=== PATIENT | female | born 1985 | race Caucasian/White ===

== ENCOUNTER 2022-10-13 14:31 | Outpatient (REF) | payer OTHER, SELFPAY | END 2022-10-14 14:06 | disposition home or self-care (01) | LOC: LAB 14:31 | PROVIDERS: PCP Nurse Practitioner; Visit Provider Nurse Practitioner | DX: S21.209A Unspecified open wound of unspecified back wall of thorax without penetration into thoracic cavity, initial encounter (principal) | CPT/HCPCS: 87070; 87150; 87186 ==

== ENCOUNTER 2022-11-20 08:49 | Outpatient (OUT) | payer OTHER, SELFPAY ==
[2022-11-20 09:29] LABS: Bilirubin Urine NEGATIVE (NEGATIVE); Blood Urine NEGATIVE (NEGATIVE); Clarity Urine CLEAR (CLEAR); Glucose Urine UA NEGATIVE (NEGATIVE); Ketones Urine NEGATIVE (NEGATIVE); Leukocyte Esterase Urine NEGATIVE (NEGATIVE); Nitrite Urine NEGATIVE (NEGATIVE); Protein Urine NEGATIVE (NEG/TRACE); Urobilinogen Urine 0.2 EU/dL (0.2-1.0)
[2022-11-20 09:37] LABS: Color Urine YELLOW (YELLOW); WBC Urine 0-2 #/HPF (NONE SEEN)
[2022-11-20 09:38] LABS: Bacteria Urine TRACE #/HPF (NONE SEEN); Cast Seen? NONE SEEN #/LPF (NONE SEEN); Crystals Seen? None Seen #/HPF (None Seen); Mucus Urine NONE SEEN (NONE SEEN); RBC Urine 0-2 #/HPF (0-2); Squamous Epithelial Cell Urine MODERATE #/LPF (NONE/RARE)
[2022-11-20 09:43] LABS: Estimated Average Glucose 103 mg/dL; Glycohemoglobin A1C 5.2 % (4.5-6.2)
[2022-11-20 09:56] LABS: Erythrocyte Sedimentation Rate 61 mm/hr (<=20)
[2022-11-20 10:45] LABS: Microalbumin Urine Random <1.3 mg/dL (<=30.0)
[2022-11-20 11:55] LABS: Free T4 1.08 ng/dL (0.76-1.46)
[2022-11-20 14:02] LABS: Alanine Aminotransferase 19 U/L (14-59); Albumin Globulin Ratio 0.9; Albumin Level 3.9 g/dL (3.4-5.0); Alkaline Phosphatase 123 U/L (46-116); Anion Gap 11.4; Aspartate Amino Transferase 8 U/L (15-37); BUN Creatinine Ratio 8.8; Bilirubin Total 0.4 mg/dL (0.2-1.0); C Reactive Protein 0.4 mg/dL (<=1.0); Carbon Dioxide 26.5 mmol/L (21.0-32.0); Chloride 104 mmol/L (98-107); Chol HDL Ratio 3.4; Cholesterol 202 mg/dL (<=200); Estimated GFR (African America >60 (>=60); Estimated GFR (Non-African Ame >60 (>=60); Globulin 4.3 g/dL; Glucose 91 mg/dL (74-106); HDL Cholesterol 59 mg/dL (40-60); Potassium 3.9 mmol/L (3.5-5.1); Sodium 138 mmol/L (136-145); Thyroid Stimulating Hormone 4.709 uIU/mL (0.358-3.740); Total Protein 8.2 g/dL (6.4-8.2); Triglycerides 69 mg/dL (<=150); VLDL CHOLESTEROL 13.8 mg/dL
[2022-11-21 04:09] LABS: Antistreptolysin O Ab 96.1 IU/mL (0.0-200.0); Rheumatoid Factor (RF) <10.0 IU/mL (<14.0)
[2022-11-21 12:09] LABS: Insulin 13.2 uIU/mL (2.6-24.9)
[2022-11-24 08:10] LABS: Antinuclear Antibodies, IFA Negative (.)
== END 2022-11-20 08:50 | disposition home or self-care (01) ==
LOC: LAB 08:50
PROVIDERS: PCP Nurse Practitioner; Visit Provider Nurse Practitioner
DX: I10 Essential (primary) hypertension (principal); E03.9 Hypothyroidism, unspecified; R73.03 Prediabetes; E16.1 Other hypoglycemia; M79.10 Myalgia, unspecified site
CPT/HCPCS: 36415; 80053; 80061; 81001; 81015; 82043; 83036; 83525; 84439; 84443; 84550; 85652; 86038; 86060; 86140; 86430

== ENCOUNTER 2022-12-05 07:08 | Outpatient (OUT) | payer OTHER, SELFPAY ==
[2022-12-05 08:41] LABS: Alanine Aminotransferase 18 U/L (14-59); Aspartate Amino Transferase 8 U/L (15-37); Chol HDL Ratio 2.4; Cholesterol 151 mg/dL (<=200); HDL Cholesterol 62 mg/dL (40-60); Thyroid Stimulating Hormone 2.772 uIU/mL (0.358-3.740); Triglycerides 64 mg/dL (<=150); VLDL CHOLESTEROL 12.8 mg/dL
== END 2022-12-05 07:09 | disposition home or self-care (01) ==
LOC: LAB 07:10
PROVIDERS: PCP Nurse Practitioner; Visit Provider Nurse Practitioner
DX: E03.9 Hypothyroidism, unspecified (principal); E11.9 Type 2 diabetes mellitus without complications
CPT/HCPCS: 36415; 80061; 84439; 84443; 84450; 84460

== ENCOUNTER 2022-12-09 08:55 | Outpatient (OUT) | payer OTHER, SELFPAY ==
[2022-12-09 09:30] LABS: Erythrocyte Sedimentation Rate 42 mm/hr (<=20)
== END 2022-12-09 08:56 | disposition home or self-care (01) ==
LOC: LAB 08:56
PROVIDERS: PCP Nurse Practitioner; Visit Provider Nurse Practitioner
DX: R70.0 Elevated erythrocyte sedimentation rate (principal)
CPT/HCPCS: 36415; 85652

== ENCOUNTER 2023-01-10 10:03 | Outpatient (OUT) | payer OTHER, SELFPAY ==
[2023-01-10 10:24] LABS: Erythrocyte Sedimentation Rate 59 mm/hr (<=20)
== END 2023-01-10 10:04 | disposition home or self-care (01) ==
LOC: LAB 01-16 10:04
PROVIDERS: PCP Nurse Practitioner; Visit Provider Nurse Practitioner
DX: R70.0 Elevated erythrocyte sedimentation rate (principal)
CPT/HCPCS: 36415; 85652

== ENCOUNTER 2023-01-27 08:43 | Outpatient (OUT) | payer OTHER, SELFPAY ==
[2023-01-27 09:32] LABS: Alanine Aminotransferase 17 U/L (14-59); Aspartate Amino Transferase 13 U/L (15-37); Chol HDL Ratio 2.7; Cholesterol 152 mg/dL (<=200); HDL Cholesterol 56 mg/dL (40-60); Thyroid Stimulating Hormone 2.145 uIU/mL (0.358-3.740); Triglycerides 60 mg/dL (<=150)
[2023-01-27 09:46] LABS: Free T4 1.16 ng/dL (0.76-1.46)
== END 2023-01-27 08:44 | disposition home or self-care (01) ==
LOC: LAB 08:44
PROVIDERS: PCP Nurse Practitioner; Visit Provider Nurse Practitioner
DX: E03.9 Hypothyroidism, unspecified (principal); E11.9 Type 2 diabetes mellitus without complications
CPT/HCPCS: 36415; 80061; 84439; 84443; 84450; 84460

== ENCOUNTER 2023-03-18 10:04 | Outpatient (REF) | payer OTHER, SELFPAY ==
[2023-03-18 10:36] LABS: SARS-CoV-2 Ag POSITIVE (NEGATIVE)
[2023-03-18 10:37] LABS: Influenza Virus A Antigen Negative; Influenza Virus B Antigen Negative; Internal Control Within Normal Limits
== END 2023-03-18 10:05 | disposition home or self-care (01) ==
LOC: LAB 10:04
PROVIDERS: PCP Nurse Practitioner; Visit Provider Nurse Practitioner
DX: Z20.822 Contact with and (suspected) exposure to COVID-19 (principal)
CPT/HCPCS: 87804; 87811

== ENCOUNTER 2023-03-31 13:15 | Emergency (ER) | payer OTHER, SELFPAY ==
[2023-03-31 13:19] VITALS: BP 151/91; PULSE 102; RESP 20; TEMP 37.1; O2SAT 97; BMI 46.8
--- NOTE | 2023-03-31 13:35 | ED.GENADUL1 ---
HPI - General Adult General Chief complaint: Skin/Abscess/Foreign Body Stated complaint: RASH/ BACK PAIN Time Seen by Provider: 03/31/23 13:35 Source: patient Mode of arrival: walk-in Limitations: no limitations History of Present Illness HPI narrative: Patient is a 37 year old female who presents to the ED for evaluation of a painful skin rash of the left flank for the past 10 days. She was diagnosed with Covid two weeks ago, and several days later she states she developed a burning and stinging pain to the left flank with development of a red rash a few days later. There has been no drainage from the rash. No concern for . Related Data Home Medications Medication Instructions Recorded Confirmed albuterol sulfate 90 mcg/actuation 2 puff inhalation Q4H PRN 03/31/23 03/31/23 aerosol inhaler shortness of breath or wheezing aspirin 81 mg tablet,delayed 81 mg PO DAILY 03/31/23 03/31/23 release (Adult Low Dose Aspirin) atorvastatin 10 mg tablet 10 mg PO DAILY 03/31/23 03/31/23 buspirone 10 mg tablet 10 mg PO BID 03/31/23 03/31/23 cholecalciferol (vitamin D3) 125 125 mcg PO DAILY 03/31/23 03/31/23 mcg (5,000 unit) tablet levothyroxine 137 mcg tablet 137 mcg PO DAILY 03/31/23 03/31/23 liraglutide 0.6 mg/0.1 mL (18 mg/3 1.8 mg subcut Q24H 03/31/23 03/31/23 mL) subcutaneous pen injector (Victoza 3-Rio) losartan 50 mg tablet 50 mg PO DAILY 03/31/23 03/31/23 metformin 500 mg tablet 500 mg PO DAILY 03/31/23 03/31/23 sertraline 100 mg tablet 100 mg PO BEDTIME 03/31/23 03/31/23 tizanidine 4 mg tablet 4 mg PO BEDTIME 03/31/23 03/31/23 verapamil 180 mg 24 hr 180 mg PO DAILY 03/31/23 03/31/23 capsule,extended release Previous Rx's Medication Instructions Recorded acyclovir 800 mg tablet See Rx Instructions .Route 03/31/23 .COMPLEX #35 tabs ondansetron 4 mg disintegrating 4 mg PO Q6H PRN nausea and 03/31/23 tablet vomiting #12 tabs oxycodone-acetaminophen 5 mg-325 1 tab PO Q4H PRN pain #20 tabs 03/31/23 mg tablet (Percocet) prednisone 20 mg tablet 60 mg PO DAILY 3 days #9 tabs 03/31/23 Allergies Allergy/AdvReac Type Severity Reaction Status Date / Time hydrochlorothiazide Allergy Severe Verified 03/31/23 13:24 gabapentin AdvReac Severe Confusion Verified 03/31/23 13:24 Review of Systems ROS Constitutional Denies: fever or chills Cardiovascular Denies: chest pain Respiratory Denies: shortness of breath Gastrointestinal Denies: nausea or vomiting Integumentary/Breast Reports: rash, redness, skin pain and skin tenderness Neurological Denies: headache Allergic/Immunologic Denies: hives PFSH PFS Social History Smoking status: Never smoker Exam Narrative Exam Narrative: General: Alert, no acute distress Head: Normocephalic ENT: No mucous membrane involvement to the rash Resp: No respiratory distress Extremities: Moves extremities equally Skin: Warm and dry, red linear rash that is patchy over the left flank, no vesicles or drainage, no red streaking or secondary cellulitis, no blistering or peeling of skin, no petechiae or purpura Constitutional Vital Signs, click to edit/add: Last Vital Signs Temp 98.7 F 03/31/23 13:19 Pulse 102 H 03/31/23 13:19 Resp 20 03/31/23 13:19 BP 151/91 H 03/31/23 13:19 Pulse Ox 97 03/31/23 13:19 O2 Del Method Room Air 03/31/23 13:19 Course Vital Signs Vital signs: Vital Signs Temperature 98.7 F 03/31/23 13:19 Pulse Rate 102 H 03/31/23 13:19 Respiratory Rate 20 03/31/23 13:19 Blood Pressure 151/91 H 03/31/23 13:19 Pulse Oximetry 97 03/31/23 13:19 Oxygen Delivery Method Room Air 03/31/23 13:19 Temperature 98.7 F 03/31/23 13:19 Pulse Rate 102 H 03/31/23 13:19 Respiratory Rate 20 03/31/23 13:19 Blood Pressure 151/91 H 03/31/23 13:19 Pulse Oximetry 97 03/31/23 13:19 Oxygen Delivery Method Room Air 03/31/23 13:19 Medical Decision Making MDM Narrative Medical decision making narrative: History and physical consistent with shingles, patient placed on acyclovir, percocet and prednisone. She will watch her blood sugars at home. Follow up PCP and return to the ED if symptoms change or worsen Medical Records Medical records reviewed: Yes I reviewed the patient's medical records Discharge Plan Discharge Chief Complaint: Skin/Abscess/Foreign Body Clinical Impression: Herpes zoster Patient Disposition: Home, Self-Care Time of Disposition Decision: 13:45 Condition: Good Prescriptions / Home Meds: New prednisone 20 mg tablet 60 mg PO DAILY 3 Days Qty: 9 0RF acyclovir 800 mg tablet See Rx Instructions .ROUTE .COMPLEX Qty: 35 0RF Rx Instructions: 800 mg orally 5 times a day for 7 days oxycodone-acetaminophen [Percocet] 5-325 mg tablet 1 tab PO Q4H PRN (Reason: pain) Qty: 20 0RF Rx Instructions: DX: B02.9 ondansetron 4 mg tablet,disintegrating 4 mg PO Q6H PRN (Reason: nausea and vomiting) Qty: 12 0RF No Action albuterol sulfate 90 mcg/actuation HFA aerosol inhaler 2 puff INHALATION Q4H PRN (Reason: shortness of breath or wheezing) atorvastatin 10 mg tablet 10 mg PO DAILY buspirone 10 mg tablet 10 mg PO BID cholecalciferol (vitamin D3) 125 mcg (5,000 unit) tablet 125 mcg PO DAILY levothyroxine 137 mcg tablet 137 mcg PO DAILY Victoza 3-Rio 0.6 mg/0.1 mL (18 mg/3 mL) pen injector 1.8 mg SUBCUT Q24H losartan 50 mg tablet 50 mg PO DAILY metformin 500 mg tablet 500 mg PO DAILY sertraline 100 mg tablet 100 mg PO BEDTIME tizanidine 4 mg tablet 4 mg PO BEDTIME verapamil 180 mg capsule,ext rel. pellets 24 hr 180 mg PO DAILY aspirin [Adult Low Dose Aspirin] 81 mg tablet,delayed release (DR/EC) 81 mg PO DAILY Instructions: Shingles (ED) Stand Alone Forms: Portal Instructions Referrals: Allison Mendez NP [Primary Care Provider] - 1 week Discharge Date/Time: 03/31/23 14:05
[2023-03-31] MEDS: OXYCODONE HCL/ACETAMINOPHEN 5MG/325MG 2 TAB PO (13:59)
== END 2023-03-31 14:05 | disposition home or self-care (01) ==
PROVIDERS: Emergency Provider Emergency Medicine; PCP Nurse Practitioner
DX: B02.9 Zoster without complications (principal); Z86.16 Personal history of COVID-19; Z79.82 Long term (current) use of aspirin; Z79.899 Other long term (current) drug therapy; Z79.84 Long term (current) use of oral hypoglycemic drugs; Z79.890 Hormone replacement therapy
CPT/HCPCS: 99283

== ENCOUNTER 2023-04-30 10:47 | Outpatient (OUT) | payer OTHER, SELFPAY ==
--- OUTSIDE RECORDS SUMMARY | 2023-04-30 10:51 | XMS_ITS | CCD ---
Author Name Unknown Address [address] [place] [address] Organization [facility] Team Providers Care [facility] Name Role Phone Katrin LIMON, Dr. Chandler Pryor Attending Unavailable Katrin LIMON, Dr. Chandler Pryor Referring Unavailable Aiccatie, Mrs. Allison Bullock Primary Care Unavailab le Aichholz Allison Ara Unavailable Unavailable Unavailable AICHHOLZ, CROP ROLLER ALLISON Consulting Unavailable AICHHOLZ, CROP ROLLER ALLISON Attending Unavailable AICHHOLZ, CROP ROLLER ALLISON Primary Care Unavailable AICHHOLZ, CROP ROLLER ALLISON Admitting Unavailable AICHHOLZ, CROP ROLLER ALLISON Consulting Unavailable AICHHOLZ, CROP ROLLER ALLISON Attending Unavailable AICHHOLZ, CROP ROLLER ALLISON Primary Care Unavailable AICHHOLZ, CROP ROLLER ALLISON Admitting Unavailable AICHHOLZ, CROP ROLLER ALLISON Consulting Unavailable AICHHOLZ, CROP ROLLER ALLISON Attending Unavailable AICHHOLZ, CROP ROLLER ALLISON Admitting Unavailable AICHHOLZ, CROP ROLLER ALLISON Primary Care Unavailable FAWWAD, MEI H Admitting Unavailable AICHHOLZ, CROP ROLLER ALLISON Primary Care Unavailable VERO WILSON Consulting Unavailable FAWWAD, MEI H Attending Unavailable FAWWAD, MEI H Consulting Unavailable AICHHOLZ, CROP ROLLER ALLISON Consulting Unavailable AICHHOLZ, CROP ROLLER ALLISON Attending Unavailable AICHHOLZ, CROP ROLLER ALLISON Admitting Unavailable AICHHOLZ, CROP ROLLER ALLISON Primary Care Unavailable DR ZINA GREGORY Consulting Unavailable JESSE HATCH Attending Unavailable JESSE HATCH Admitting Unavailable AICHHOLZ, CROP ROLLER ALLISON Primary Care Unavailable JESSE HATCH Consulting Unavailable AICHHOLZ, CROP ROLLER ALLISON Primary Care Unavailable JESSE HATCH Attending Unavailable JESSE HATCH Admitting Unavailable JESSE HATCH Consulting Unavailable Lali Patel Consulting Unavailable AICHHOLZ, CROP ROLLER ALLISON Primary Care Unavailable [place], DR VERO De Oliveira Consulting Unavailable PAY ., DR PONCE Attending Unavailable PAY ., DR PONCE Admitting Unavailable PAY ., DR PONCE Consulting Unavailable AICHHOLZ, CROP ROLLER ALLISON Admitting Unavailable AICHHOLZ, CROP ROLLER ALLISON Attending Unavailable AICHHOLZ, CROP ROLLER ALLISON Primary Care Unavailable AICHHOLZ, CROP ROLLER ALLISON Attending Unavailable AICHHOLZ, CROP ROLLER ALLISON Admitting Unavailable AICHHOLZ, CROP ROLLER ALLISON Primary Care Unavailable [place], DR VERO De Oliveira Consulting Unavailable AICHHOLZ, CROP ROLLER ALLISON Consulting Unavailable AICHHOLZ, CROP ROLLER ALLISON Primary Care Unavailable [place], DR VERO De Oliveira Consulting Unavailable MICHAELWSHAIKH RODRIGUEZ H Attending Unavailable FAWWAD, MEI H Admitting Unavailable FAWWAD, MEI H Consulting Unavailable AICHHOLZ, CROP ROLLER ALLISON Admitting Unavailable AICHHOLZ, CROP ROLLER ALLISON Primary Care Unavailable AICHHOLZ, CROP ROLLER ALLISON Consulting Unavailable AICHHOLZ, CROP ROLLER ALLISON Attending Unavailable AICHHOLZ, CROP ROLLER ALLISON Admitting Unavailable AICHHOLZ, CROP ROLLER ALLISON Primary Care Unavailable AICHHOLZ, CROP ROLLER ALLISON Consulting Unavailable AICHHOLZ, CROP ROLLER ALLISON Attending Unavailable Unavailable Primary Care Provider UnavailALBERTO Hobson Referring Unavaila ALBERTO Ray Attending Unavaila ble AICHHOLZ, ALLISON ARA Referring Unavailable Allergies Allergy Classification Reported Allergen(s) Allergy Type Date of Onset Reaction(s) Facility (3 sources) gabapentin; Translations: [gabapentin] Drug Allergy 3 Other: See Comments [facility] (2 sources) hydroCHLOROthiaz ney; Translations: [hydroCHLOROthia zide CAPS] Drug Allergy 3 Other: See Comments [facility] (1 source) gabapentin Drug Allergy [facility] (2 sources) hydroCHLOROthiaz ney; Translations: [HYDROCHLOROTHIA ZIDE] Drug Allergy 4 [facility] Medications Completed/Discontinued Medications Medication Drug Class(es) Dates Sig (Normalized) Sig (Original) amitriptyline hydrochloride 25 mg oral tablet (1 source) Tricyclic Antidepressant Amitriptyline HCl - 25 MG Oral Tablet 1/2 to 1 tab at night Quantity: 0 Refills: 0 Ordered: 30-Jun-2022 DO Active Aspirin (2 sources) Platelet Aggregation Inhibitor, Nonsteroidal Anti-inflammatory Drug aspirin 81 mg cap take 0.5 tablet by mouth twice d aily Aspirin 325 MG Oral Tablet Delayed Release 1/2 tablet twice daily Quantity: 90 Refills: 3 Ordered: 30-Jun-2022 DO Active atorvastatin 10 mg oral tablet (1 source) HMG-CoA Reductase Inhibitor Start: 11-26-2022 atorvastatin (LIPITOR) 10 mg tablet Take 10 mg by mouth. 0 11/26/2022 Active Comment on above: Take 10 mg by mouth. busPIRone hydrochloride 10 mg oral tablet (2 sources) Start: 01-20-2023 take 1 tablet by mouth every twelve hours busPIRone (BUSPAR) 10 mg tablet Take 1 tablet by mouth every 12 hours. 0 01/20/2023 Active take 1 tablet by mouth twice rolo ly busPIRone HCl - 10 MG Oral Tablet TAKE 1 TABLET TWICE DAILY. Quantity: 0 Refills: 0 Ordered: 30-Jun-2022 DO Active Comment on above: Take 1 tablet by grzegorz th every 12 hours. cyclobenzaprine hydrochloride 10 mg oral tablet (2 sources) Muscle Relaxant Start: 022 cyclobenzaprine (FLEXERIL) 10 mg tablet 1 (one) time each day at the same time. 0 06/10/2021 Active Comment on above: 1 (one) time each da y at the same time. doxepin hydrochloride 10 mg oral capsule (1 source) Tricyclic Antidepressant Start: 023 doxepin capsule 10 mg Take 10-20 mg by mouth daily at bedtime. 0 11/21/2022 Active Comment on above: Take 10-20 mg by grzegorz th daily at bedtime. levothyroxine sodium 0.15 mg oral tablet (2 sources) l-Thyroxine Start: 023 take 1 tablet by mouth every two hours in the morning levothyroxine (SYNTHROID) 150 mcg tablet TAKE 1 TABLET BY MOUTH 2 (TWO) HOURS prior to any food/drink/meds first thing IN THE MORNING 0 01/20/2023 Active Start: 01-01-2021 take 1 tablet by grzegorz th once daily Levothyroxine Sodium 125 MCG Oral Tablet TAKE 1 TABLET DAILY. Quantity: 90 Refills: 0 Ordered: 29-Apr-2021 DO Start : 01-Jan-2021 Active Comment on above: TAKE 1 TABLET BY GRZEGORZ TH 2 (TWO) HOURS prior to any food/drink/meds first thing IN THE MORNING 3 ml liraglutide 6 mg/ml pen injector (2 sources) GLP-1 Receptor Agonist Start: 01-20-2023 VICTOZA 3-ROME 0.6 mg/0.1 mL (18 mg/3 mL) INJECT 1.8mg SUBCUTANEOUSLY DAILY 0 01/20/2023 Active inject 1.8 mg by sub cutaneous injection once daily Victoza 18 MG/3ML Subcutaneous Solution Pen-injector INJECT 1.8 MG SUBCUTANEOUSLY EVERY DAY Quantity: 0 Refills: 0 Ordered: 30-Jun-2022 DO Active Comment on above: INJECT 1.8mg SUBCUTA NEOUSLY DAILY losartan potassium 25 mg oral tablet (3 sources) Angiotensin 2 Receptor Maikel Start: take 1 tablet by mouth once daily Losartan Potassium 25 MG Oral Tablet Take 1 tablet daily Quantity: 90 Refills: 0 Ordered: 29-Apr-2021 DO Start : 04-Feb-2021 Active losartan (COZAAR ) 50 mg tablet 1 (one) time each day at the same time. 0 Active Comment on above: 1 (one) time each da y at the same time. magnesium gluconate 500 mg oral tablet (1 source) magnesium glucon ate (MAG-G) 27 mg (500 mg) tab Take by mouth once daily. Twice daily 0 Active Comment on above: Take by mouth once d aily. Twice daily meclizine hydrochloride 25 m g oral tablet (2 sources) Antiemetic meclizine (ANTIV ERT) 25 mg tab 1 (one) time each day at the same time. 0 Active Meclizine HCl - 25 MG Oral Tablet TAKE DIRECTED. Quantity: 0 Refills: 0 Ordered: 30-Jun-2022 DO Active Comment on above: 1 (one) time each da y at the same time. metFORMIN hydrochloride 500 mg oral tablet (2 sources) Biguanide Start: metFORMIN (GLUCOPHAGE) 500 mg tablet 1 (one) time each day at the same time. 0 07/03/2021 Active Comment on above: 1 (one) time each da y at the same time. sertraline 100 mg oral tablet (1 source) Serotonin Reuptake Inhibitor take 1 tablet by mouth once daily Sertraline HCl - 100 MG Oral Tablet TAKE 1 TABLET DAILY. Quantity: 0 Refills: 0 Ordered: 30-Jun-2022 DO Active Turmeric extract (2 sources) TURMERIC ORAL Ta ke by mouth. 1-2 per day 0 Active take 1 tablet by mouth once brian y Turmeric 500 MG Oral Tablet 1 tablet once daily Quantity: 0 Refills: 0 Ordered: 30-Jun-2022 DO Active Comment on above: Take by mouth. 1-2 p er day 24 hr verapamil hydrochloride 180 mg extended release oral capsule (2 sources) Calcium Channel Maikel Start: 01-20-2023 take 1 capsule by mouth every hour verapamil ER 180 mg 24 hr capsule Take 1 capsule by mouth every afternoon. 0 01/20/2023 Active Start: 04-03-2021 take 1 capsule by mo [facility] once daily Verapamil HCl ER 180 MG Oral Capsule Extended Release 24 Hour TAKE 1 CAPSULE Daily Quantity: 0 Refills: 0 Ordered: 29-Apr-2021 DO Start : 03-Apr-2021 Active Comment on above: Take 1 capsule by mo [facility] every afternoon. Problems Active Problems Problem Classification Problem Date Documented Date Episodic/Chronic Asthma (1 source) Unspecified asthma, uncomplicated; Translations: [UNSPECIFIED ASTHMA UNCOMPLICATED] Onset: 03-05-2022 Chronic Conditions associated with dizziness or vertigo (1 source) Vertigo; Translations: [Dizziness and giddiness] Episodic Diabetes mellitus without complication (5 sources) Type 2 diabetes mellitus without complications; Translations: [TYPE 2 DM WITHOUT COMPLICATIONS] Onset: 01-22-2022 Chronic Diabetes mellitus without complication (1 source) Prediabetes; Translations: [PREDIABETES] Onset: 05-16-2022 Episodic Essential hypertension (1 source) Benign essential hypertension; Translations: [Benign essential hypertension] Chronic Heart valve disorders (1 source) Systolic murmur; Translations: [Undiagnosed cardiac murmurs] Episodic Malaise and fatigue (3 sources) Fatigue; Translations: [Other malaise and fatigue] Onset: 02-17-2023 02-17-2023 Episodic Nutritional deficiencies (2 sources) Vitamin D deficiency; Translations: [Vitamin D deficiency, unspecified] Onset: 02-17-2023 02-17-2023 Chronic Osteoarthritis (1 source) Unilateral primary osteoarthritis, right knee; Translations: [UNI PRIM OSTEOARTHRITIS RT KNEE] Onset: 12-20-2021 Chronic Other connective tissue disease (1 source) Fibromyalgia; Translations: [Fibromyalgia] 02-17-2023 Episodic Other connective tissue disease (1 source) Fibromyalgia; Translations: [Fibromyalgia] Onset: 02-17-2023 Episodic Other endocrine disorders (4 sources) Other hypoglycemia; Translations: [OTHER HYPOGLYCEMIA] Onset: 10-01-2021 Chronic Other hematologic conditions (1 source) ESR raised; Translations: [Elevated erythrocyte sedimentation rate] 02-17-2023 Episodic Other hematologic conditions (1 source) Elevated erythrocyte sedimentation rate; Translations: [Sedimentation rate elevation] Onset: 02-17-2023 Episodic Other lower respiratory disease (1 source) Dyspnea; Translations: [Other respiratory abnormalities] Episodic Other nervous system disorders (1 source) Anosmia; Translations: [ANOSMIA] Onset: 07-07-2022 Episodic Other nutritional; endocrine; and metabolic disorders (1 source) Body mass index 40+ - severely obese; Translations: [Morbid obesity] Chronic Other nutritional; endocrine; and metabolic disorders (1 source) Obesity, unspecified; Translations: [OBESITY UNSPECIFIED] Onset: 01-16-2022 Chronic Other nutritional; endocrine; and metabolic disorders (1 source) Body mass index (BMI) 50.0-59.9, adult; Translations: [BODY MASS INDEX BMI 50.0-59.9 ADULT] Onset: 01-16-2022 Chronic Other nutritional; endocrine; and metabolic disorders (1 source) Morbid (severe) obesity due to excess calories; Translations: [MORBID SEVERE OBES D/T EXCESS JOHN] Onset: 10-03-2021 Chronic Thyroid disorders (5 sources) Hypothyroidism, unspecified; Translations: [HYPOTHYROIDISM UNSPECIFIED] Onset: 10-03-2021 Chronic Unclassified (3 sources) LOW BACK PAIN, UNSPECIFIED; Translations: [LOW BACK PAIN, UNSPECIFIED] Onset: 08-13-2021 Past or Other Problems Problem Classification Problem Date Documented Da te Episodic/Chronic Cardiac dysrhythmias (1 source) Tachycardia, unspecified; Translations: [TACHYCARDIA UNSPECIFIED] Onset: 01-24-2022 Episodic E Codes: Cut/pierceb (1 source) Contact with unspecified sharp object(s), initial encounter; Translations: [CNTC UNSPECIFIED SHARP OBJECT INIT] Onset: 03-05-2022 Episodic Open wounds of head; neck; and trunk (4 sources) Puncture wound without foreign body of lip, initial encounter; Translations: [PUNCT WOUND W/O FB LIP INITIAL ENC] Onset: 03-04-2022 Episodic Other aftercare (1 source) Other custodial (current) drug therapy; Translations: [OTH CUSTODIAL CURRENT DRUG THERAPY] Onset: 03-05-2022 Episodic Other aftercare (1 source) 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; Translations: [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 HYPOGLYCEMIC DX] Onset: 01-16-2022 Episodic Other circulatory disease (1 source) Personal history of transient ischemic attack (TIA), and cerebral infarction without residual deficits; Translations: [PERS HX TIA AND CI NO RESID DEFICIT] Onset: 01-16-2022 Episodic Other connective tissue disease (1 source) Patellar tendinitis, right knee; Translations: [PATELLAR TENDINITIS RIGHT KNEE] Onset: 12-20-2021 Episodic Other hematologic conditions (4 sources) Abnormality of plasma protein, unspecified; Translations: [ABNORMALITY PLASMA PROTEIN UNS] Onset: 10-29-2021 Episodic Other nervous system disorders (5 sources) Paresthesia of skin; Translations: [PARESTHESIA OF SKIN] Onset: 01-17-2022 Episodic Other nervous system disorders (4 sources) Anesthesia of skin; Translations: [ANESTHESIA OF SKIN] Onset: 01-15-2022 Episodic Other non-traumatic joint disorders (4 sources) Pain in right knee; Translations: [PAIN IN RIGHT KNEE] Onset: 12-18-2021 Episodic Unclassified (1 source) Never smoked tobacco; Translations: [Never smoker] Unclassified (1 source) LOW BACK PAIN, UNSPECIFIED; Translations: [LOW BACK PAIN, UNSPECIFIED] Onset: 08-13-2021 Results Test Name Value Interpretation Reference Range Facility 25(OH)D3 [facility] 2022 25-hydroxyvitamin D3 [Mass/Vol] 14.6 ng/mL Low 31.0-80.0 [facility] Comment on above: Order Comment: Speci men Type: BLOOD SPECIMEN Ordering Facility: [facility] Address: [address] [place] [id number] Result Comment: Clas sification of 25 [place] Vitamin D status: Deficiency/Insufficiency: < or = 30 ng/ml. Sufficiency/Optimal Levels: 31-80 ng/mL Toxicity: > 100 ng/mL. Test performed by chemiluminescent immunoassay. Performed By: #### 1 989-3 #### [facility] CLIA [id number] [address] [place] [address] [place] CBC W Auto Differential pane l (Bld)on 02-17-2023 Basophils (Bld) [#/Vol] 0.03 10*3/uL <0.11 k/uL [facility] Basophils/100 WBC (Bld) 0.3 % [facility] Differential cell count method Nom (Bld) Auto [facility] Eosinophils (Bld) [#/Vol] 0.12 10*3/uL <0.46 k/uL [facility] Eosinophils/100 WBC (Bld) 1.2 % [facility] Erythrocyte distribution width (RBC) [Ratio] 12.7 % 11.5 - 15.0 % [facility] Hematocrit (Bld) [Volume fraction] 44.5 % 36.0 - 46.0 % [facility] Hemoglobin (Bld) [Mass/Vol] 14.4 g/dL 11.5 - 15.5 g/dL [facility] Immature granulocytes (Bld) [#/Vol] 0.03 10*3/uL <0.10 k/uL [facility] Immature granulocytes/100 WBC (Bld) 0.3 % [facility] Lymphocytes (Bld) [#/Vol] 1.93 10*3/uL 1.00 - 4.00 k/uL [facility] Lymphocytes/100 WBC (Bld) 19.7 % [facility] MCH (RBC) [Entitic mass] 30.3 pg 26.0 - 34.0 pg [facility] MCHC (RBC) [Mass/Vol] 32.4 g/dL 30.5 - 36.0 g/dL [facility] MCV (RBC) [Entitic vol] 93.5 fL 80.0 - 100.0 fL [facility] Monocytes (Bld) [#/Vol] 0.78 10*3/uL <0.87 k/uL [facility] Monocytes/100 WBC (Bld) 7.9 % [facility] Neutrophils (Bld) [#/Vol] 6.93 10*3/uL 1.45 - 7.50 k/uL [facility] Neutrophils/100 WBC (Bld) 70.6 % [facility] Nucleated RBC (Bld) [#/Vol] <0.01 k/uL [facility] Nucleated RBC/100 WBC (Bld) [Ratio] 0.0 /100 WBC [facility] Platelet mean volume (Bld) [Entitic vol] 13.2 fL High 9.0 - 12.7 fL [facility] Platelets (Bld) [#/Vol] 245 10*3/uL 150 - 400 k/uL [facility] RBC (Bld) [#/Vol] 4.76 10*6/uL 3.90 - 5.2 0 m/uL [facility] WBC (Bld) [#/Vol] 9.82 10*3/uL 3.70 - 11. 00 k/uL [facility] Basophils (Bld) [#/Vol] 0.03 10*3/uL Normal <0.11 [facility] Comment on above: Order Comment: Speci men Type: BLOOD SPECIMEN Ordering Facility: [facility] Address: [address] [place] [address] Performed By: #### 5 7021-8 #### [facility] CLIA [id number] [address] [place] [address] [place] Basophils/100 WBC (Bld) 0.3 % Normal [facility] Comment on above: Order Comment: Speci men Type: BLOOD SPECIMEN Ordering Facility: [facility] Address: [address] [place] [address] Performed By: #### 5 7021-8 #### [facility] CLIA [id number] [address] [place] [address] [place] Differential cell count method Nom (Bld) Auto Normal [facility] Comment on above: Order Comment: Speci men Type: BLOOD SPECIMEN Ordering Facility: [facility] Address: [address] [place] [address] Performed By: #### 5 7021-8 #### [facility] CLIA [id number] [facility] [place] [address] [place] Eosinophils (Bld) [#/Vol] 0.12 10*3/uL Normal <0.46 [facility] Comment on above: Order Comment: Speci men Type: BLOOD SPECIMEN Ordering Facility: [facility] Address: [address] [place] [address] Performed By: #### 5 7021-8 #### [facility] CLIA [id number] [address] [place] [address] [place] Eosinophils/100 WBC (Bld) 1.2 % Normal [facility] Comment on above: Order Comment: Speci men Type: BLOOD SPECIMEN Ordering Facility: [facility] Address: [address] [place] [address] Performed By: #### 5 7021-8 #### [facility] CLIA [id number] [address] [place] [address] [place] Erythrocyte distribution width (RBC) [Ratio] 12.7 % Normal 11.5-15.0 [facility] Comment on above: Order Comment: Speci men Type: BLOOD SPECIMEN Ordering Facility: [facility] Address: [address] [place] [address] Performed By: #### 5 7021-8 #### [facility] CLIA [id number] [address] [place] [address] [place] Hematocrit (Bld) [Volume fraction] 44.5 % Normal 36.0-46.0 [facility] Comment on above: Order Comment: Speci men Type: BLOOD SPECIMEN Ordering Facility: [facility] Address: [address] [place] [address] Performed By: #### 5 7021-8 #### [facility] CLIA [id number] [address] [place] [address] [place] Hemoglobin (Bld) [Mass/Vol] 14.4 g/dL Normal 11.5-15.5 [facility] Comment on above: Order Comment: Speci men Type: BLOOD SPECIMEN Ordering Facility: [facility] Address: [address] [place] [address] Performed By: #### 5 7021-8 #### [facility] CLIA [id number] [address] [place] [address] [place] Immature granulocytes (Bld) [#/Vol] 0.03 10*3/uL Normal <0.10 [facility] Comment on above: Order Comment: Speci men Type: BLOOD SPECIMEN Ordering Facility: [facility] Address: [address] [place] [address] Performed By: #### 5 7021-8 #### [facility] CLIA [id number] [address] [place] [address] [place] Immature granulocytes/100 WBC (Bld) 0.3 % Normal [facility] Comment on above: Order Comment: Speci men Type: BLOOD SPECIMEN Ordering Facility: [facility] Address: [address] [place] [address] Performed By: #### 5 7021-8 #### [facility] CLIA [id number] [address] [place] [address] [place] Lymphocytes (Bld) [#/Vol] 1.93 10*3/uL Normal 1.00-4.00 [facility] Comment on above: Order Comment: Speci men Type: BLOOD SPECIMEN Ordering Facility: [facility] Address: [address] [place] [address] Performed By: #### 5 7021-8 #### [facility] CLIA [id number] [address] [place] [address] [place] Lymphocytes/100 WBC (Bld) 19.7 % Normal [facility] Comment on above: Order Comment: Speci men Type: BLOOD SPECIMEN Ordering Facility: [facility] Address: [address] [place] [address] Performed By: #### 5 7021-8 #### [facility] CLIA [id number] [address] [place] [address] [place] MCH (RBC) [Entitic mass] 30.3 pg Normal 26.0-34.0 [facility] Comment on above: Order Comment: Speci men Type: BLOOD SPECIMEN Ordering Facility: [facility] Address: [address] [place] [address] Performed By: #### 5 7021-8 #### [facility] CLIA [id number] [address] [place] [address] [place] MCHC (RBC) [Mass/Vol] 32.4 g/dL Normal 30.5-36.0 [facility] Comment on above: Order Comment: Speci men Type: BLOOD SPECIMEN Ordering Facility: [facility] Address: [address] [place] [address] Performed By: #### 5 7021-8 #### [facility] CLIA [id number] [address] [place] [address] [place] MCV (RBC) [Entitic vol] 93.5 fL Normal 80.0-100.0 [facility] Comment on above: Order Comment: Speci men Type: BLOOD SPECIMEN Ordering Facility: [facility] Address: [address] [place] [address] Performed By: #### 5 7021-8 #### [facility] CLIA [id number] [address] [place] [address] [place] Monocytes (Bld) [#/Vol] 0.78 10*3/uL Normal <0.87 [facility] Comment on above: Order Comment: Speci men Type: BLOOD SPECIMEN Ordering Facility: [facility] Address: [address] [place] [address] Performed By: #### 5 7021-8 #### [facility] CLIA [id number] [address] [place] [address] [place] Monocytes/100 WBC (Bld) 7.9 % Normal [facility] Comment on above: Order Comment: Speci men Type: BLOOD SPECIMEN Ordering Facility: [facility] Address: [address] [place] [address] Performed By: #### 5 7021-8 #### [facility] CLIA [id number] [address] [place] [address] [place] Neutrophils (Bld) [#/Vol] 6.93 10*3/uL Normal 1.45-7.50 [facility] Comment on above: Order Comment: Speci men Type: BLOOD SPECIMEN Ordering Facility: [facility] Address: [address] [place] [address] Performed By: #### 5 7021-8 #### [facility] CLIA [id number] [address] [place] [address] [place] Neutrophils/100 WBC (Bld) 70.6 % Normal [facility] Comment on above: Order Comment: Speci men Type: BLOOD SPECIMEN Ordering Facility: [facility] Address: [address] [place] [address] Performed By: #### 5 7021-8 #### [facility] CLIA [id number] [address] [place] [address] [place] Nucleated RBC (Bld) [#/Vol] 10*3/uL Normal <0.01 [facility] Comment on above: Order Comment: Speci men Type: BLOOD SPECIMEN Ordering Facility: [facility] Address: [address] [place] [address] Performed By: #### 5 7021-8 #### [facility] CLIA [id number] [address] [place] [address] [place] Nucleated RBC/100 WBC (Bld) [Ratio] 0.0 /100 WBC Normal [facility] Comment on above: Order Comment: Speci men Type: BLOOD SPECIMEN Ordering Facility: [facility] Address: [address] [place] [address] Performed By: #### 5 7021-8 #### [facility] CLIA [id number] [address] [place] [address] [place] Platelet mean volume (Bld) [Entitic vol] 13.2 fL High 9.0-12.7 [facility] Comment on above: Order Comment: Speci men Type: BLOOD SPECIMEN Ordering Facility: [facility] Address: [address] [place] [address] Performed By: #### 5 7021-8 #### [facility] CLIA [id number] [address] [place] [address] [place] Platelets (Bld) [#/Vol] 245 10*3/uL Normal 150-400 [facility] Comment on above: Order Comment: Speci men Type: BLOOD SPECIMEN Ordering Facility: [facility] Address: [address] [place] [address] Result Comment: Resu lts checked and verified.No clot detected. Performed By: #### 5 7021-8 #### [facility] CLIA [id number] [address] [place] [address] [place] RBC (Bld) [#/Vol] 4.76 10*6/uL Normal 3.90-5.20 [facility] Comment on above: Order Comment: Speci men Type: BLOOD SPECIMEN Ordering Facility: [facility] Address: [address] [place] [address] Performed By: #### 5 7021-8 #### [facility] CLIA [id number] [address] [place] [address] [place] WBC (Bld) [#/Vol] 9.82 10*3/uL Normal 3.70-11.00 [facility] Comment on above: Order Comment: Speci men Type: BLOOD SPECIMEN Ordering Facility: [facility] Address: [address] [place] [address] Performed By: #### 5 7021-8 #### [facility] CLIA [id number] [address] [place] [address] [place] CNOVon 02-17-2023 CNOV Office Visit (DORIE ) DENISHA VELASCO ([id number]) 1985 F Date Time Provider Department 02/17/23 9:00 AM ALBERTO MARCUS During your visit today, we recorded the following information about you: Pulse Blood pressure Weight 96/minute 116/82 126.6 kg Alberto Marcus MD 02/17/2023 10:02 AM Signed [facility] Date of Service: 02/17/2023 Patient: Denisha Velasco Medical Record: [id number] Last Rheumatology visit: None at [facility] History of Present Illness Denisha Velasco is a 37 year old White female who presents on 02/17/2023 for an in-person visit for evaluation of Consult. HISTORY OF PRESENT ILLNESS 37 year old female who presents for elevated inflammatory markers and pain. Past medical history: precancerous lesions of the skin, precancerous uterine lesions? medial meniscal tear, exercise induced asthma, pre-diabetes, HTN, HLD, hypothyroidism, vertigo, migraines, ??TIA (unclear dx), h/o costochondritis, sleep apnea Past surgical history: hysterectomy, medial meniscal repair, c section, She notes she has dogs and when they step on her legs she has pain. When she bumps into things the pain lingers longer than expected. She has constant pain in her back and notes more recently in her elbows. She has had back pain for about 12 years. She has pain in her lower back and upper back. Notices the pain is typically when she is trying to sleep. She has area that has back spasms. Since she had mole removal, she has had pain in her back. Activity such as laundry, dishes and bringing groceries in, yard work, vacuuming aggravates her pain. Resting helps with pain is increased. She has had bilateral elbow pain for a few months. Picking up heavy things aggravates her elbows. Inflammatory markers were checked because she described when people touch her it is painful. She has fatigue. She has history of sleep apnea, has not been using her CPAP since October since her moles have been removed. Has noticed increase in fatigue since stopping this. Not waking up feeling refreshed. She has noticed these symptoms of sensitivity to touch for about 20 years. She has brain fog all the time. Also notes difficulty with time frame (memories 2wks vs. 2 months), forgets where she is driving. No rashes No photosensitivity No recurrent mucosal ulcers No raynauds Notes 1 episode of hands swelling up and being pruritic No blood clots ++3 children, pre-eclampsia in all 3 pregnancies. No h/o miscarriages No dry eye or dry mouth Labs: normal T4, normal LFT, normal TSH ESR 61, 42, 59 mm/hr Normal CRP Negative RF Negative LEONARD Normal UA Patient-Entered Data PROMIS Assessments PROMIS Global Health - (T-Scores - the mean of general population = 50. Five points is a clinically meaningful difference.) 02/13/2023 Physical T-Score 34.9 Mental T-Score 33.8 PROMIS CAT Pain Interference 02/13/2023 PROMIS Pain Interference T-Score (range: 10 - 90) 64 (moderate) PROMIS Pain Interference Percentile 8 % PROMIS CAT Fatigue 02/13/2023 PROMIS Fatigue T-Score 64 (moderate) PROMIS Fatigue Percentile 8 % PROMIS PHYSICAL FUNCTION T-SCORE 02/13/2023 PROMIS Physical Function T-Score 35 (moderate dysfunction) Physical Function Percentile 7 % 3 Jung Activities of Daily Living 02/13/2023 9:15 PM Dress self? Without ANY difficulty Get in and out of bed? With SOME difficulty Walk outdoors? Without ANY difficulty Wash and dry body? Without ANY difficulty Get in and out of car? With SOME difficulty RAPID 3 Disease Activity Weighed Score Levels: 0 - 1: Near Remission 1.3 - 2.0: Low Severity 2.3 - 4.0: Moderate Severity 4.3 - 10.0: High Severity RAPID-3 Weighed Score 02/13/2023 RAPID 3 Weighed Score 5.06 (High Severity (HS)) Patient Health Questionnaire (PHQ-9) No flowsheet data found.(0-4) minimal depression, (5-9) mild depression, (10-14) moderate depression, (15-19) moderately severe depression, (20-27) severe depression Review of Systems Review of Systems CONSTITUTION: Negative for: Fever and Recent weight change HEENT: Negative for: Nosebleeds, Mouth sores, Trouble swallowing and Dry mouth RESPIRATORY: Negative for: Cough, Shortness of breath and Pain with breathing GASTROINTESTINAL: Negative for: Melena, Diarrhea, Heartburn and Abdominal pain MUSCULOSKELETAL: Positive for: Arthralgias, Myalgias, Joint swelling and Morning Joint Stiffness Negative for: Muscle weakness NEUROLOGICAL: Positive for: Headaches and Memory loss Negative for: Numbness SKIN: Negative for: Rash, Skin changes, Hair loss and Nail changes EYES: Negative for: Eye pain, Eye redness, Eye dryness and visual disturbance CARDIOVASCULAR: Positive for: Chest pain and Leg swelling GENITOURINARY: Negative for: Dysuria and Hematuria HEMATOLOGIC/LYMPHATIC: All other reviewed and negative other than (more content not included)... Normal [facility] VITAMIN D 25 HYDROXYon 02-17 25-hydroxyvitamin D3 [Mass/Vol] 14.6 ng/mL Low 31.0 - 80.0 ng/mL [facility] Vit B12 SerPl-mCncon 023 Cobalamin (Vitamin B12) [Mass/Vol] 347 pg/mL Normal 232-1245 [facility] Comment on above: Order Comment: Speci men Type: BLOOD SPECIMEN Ordering Facility: [facility] Address: [address] [place] [address] Performed By: #### 2 132-9 #### [facility] CLIA [id number] [address] [place] [address] [place] SARS-CoV2 IgMon 07-07-2022 Comment Notes Normal [facility] Comment on above: Result Comment: Nega tive results to antibodies against SARS-CoV-2 are generally indicative of non-exposure to virus and lack of longevity of antibody response. Performed By: #### C VDABM #### [facility] [address] [place] [address] Dr. Karey Ordoñez Disclaimer Notes Normal [facility] Comment on above: Result Comment: This is a lab developed test. This test has been validated in accordance with [facility] guidelines and FDA guidance document (Policy for diagnostic testing in laboratories certified to perform high complexity testing under CLIA prior to Emergency Use Authorization for Coronavirus Disease-2019 the public health emergency) issued on July 09, 2019. This test has not been reviewed by the FDA. Negative results do not preclude acute SARS-CoV-2 infection. If acute infection is suspected, direct testing for SARS-CoV-2 is necessary. Results from antibody testing should not be used to diagnose or exclude acute SARS-CoV-2 infection. Positive results may be due to past or present infection with dxy-JXKF-WaG-2 coronavirus strains, such as coronavirus HKU1, NL63, OC43, or 229E. Performed By: #### C VDABM #### [facility] [address] [place] [address] Dr. Karey Ordoñez Electronically Signed By Comment Normal [facility] Comment on above: Result Comment: Fernando Scales Performed By: #### C VDABM #### [facility] [address] [place] [address] Dr. Karey Ordoñez Methodology Comment Normal [facility] Comment on above: Result Comment: Chem iluminescence Performed By: #### C VDABM #### [facility] [address] [place] [address] Dr. Karey Ordoñez References Notes Normal [facility] Comment on above: Result Comment: Sheldon Godinez, Sheldon Maria, Roly Bass, Jeffry Summers, Hola Ordoñez, Dariela Bass., et. al. (2020). Profiling early humoral response to diagnose novel coronavirus disease (COVID-19). Clinical Infectious Diseases. Lorri Mosley et al. (2020) Profile of Specific Antibodies to SARS-CoV-2: The First Report Journal of Infection (2020), doi: https://doi.org/10.1016/j.jinf.2020.03.052 Charan Rodriguez et al. (2020). Antibody responses to SARS-CoV-2 in COVID-19 patients: the perspective application of serological tests in clinical practice. 10.1101/2019.03.18.79596348. Performed By: #### C VDABM #### [facility] [address] [place] [address] Dr. Karey Ordoñez Result Negative Normal [facility] Comment on above: Performed By: #### C VDABM #### [facility] [address] [place] [address] Dr. Karey Ordoñez Value 0.03 COI Normal [facility] Comment on above: Result Comment: <0.8 : Negative 0.8-<1.0: Indeterminate >=1.0: Positive Performed By: #### C VDABM #### [facility] [address] [place] [address] Dr. Karey Ordoñez SARS-CoV2 IgGon 07-04-2022 SARS-CoV-2 (COVID-19) IgG IA.rapid Ql (S/P/Bld) >800.0 Normal Neg <13.0 [facility] Comment on above: Performed By: #### C VDIGG #### [facility] [address] [place] [address] Dr. Karey Ordoñez SARS-CoV-2 (COVID-19) RNA RUBY+probe Ql (Unsp spec) Positive Normal [facility] Comment on above: Result Comment: Anti bodies against the SARS-CoV-2 spike protein, including the receptor binding domain (RBD) were detected. It is not yet known what level of antibody to SARS-CoV-2 spike protein correlates to immunity against developing symptomatic SARS-CoV-2 disease. This assay was performed using [employer](R) SARS-CoV-2 Trimeric S IgG assay. Performed By: #### C VDIGG #### [facility] [address] [place] [address] Dr. Karey Ordoñez Office Visit (Cardiology)on 06-30-2022 Follow-up visit Diagnoses/Problems Assessed Benign essential hypertension (401.1) (I10) Vertigo (780.4) (R42) Morbid obesity with BMI of 45.0-49.9, adult (278.01,V85.42) (E66.01,Z68.42) Never smoker Orders Morbid obesity with BMI of 45.0-49.9, adult Healthy Weight Tips; Status:Complete - Retrospective Authorization; Done: [id number] Some eating tips that can help you lose weight.; Status:Complete - Retrospective Authorization; Done: [id number] SocHx: Never smoker Tobacco Use Screening; Status:Complete; Done: [id number] Patient Instructions Please bring all medicines, vitamins, and herbal supplements with you when you come to the office. Prescriptions will not be filled unless you are compliant with your follow up appointments or have a follow up appointment scheduled as per instruction of your physician. Refills should be requested at the time of your visit. Follow up in 2 year. Chief Complaint DENISHA VELASCO is being seen for an annual follow-up of. History of Present Illness Patient returns once again in follow-up of problems which appear to be, on original presentation, atypical chest pain and vertigo. She has been seen primary care 4 times a year for management of hypertension and control is good. She has seen neurology as well for vertiginous symptomatology. I proposed to her that because her symptomatology was basically noncardiac and she has appropriate intervention on behalf of her other healthcare providers that henceforth cardiology follow-up, on a regular basis, appears unnecessary and/or of little utility since there was never any finding of heart disease per se. She concurs. We suggested follow-up henceforth only as needed or in about 2 years and she is comfortable with that concept. She was encouraged to call if problems arise and she was educated regarding more typical cardiac symptoms to watch for and be aware of. We did advocate diet exercise and weight loss because she appears capable of doing it at her young age. Surgical History Problems History of section Denied: History of Colonoscopy History of Dilation and curettage History of Hysterectomy History of Knee arthroscopy Current Meds Medication NameInstruction Amitriptyline HCl - 25 MG Oral Tablet1/2 to 1 tab at night Aspirin 325 MG Oral Tablet Delayed Release1/2 tablet twice daily busPIRone HCl - 10 MG Oral TabletTAKE 1 TABLET TWICE DAILY. Cyclobenzaprine HCl - 10 MG Oral TabletTAKE 1 TABLET AT BEDTIME. Levothyroxine Sodium 125 MCG Oral TabletTAKE 1 TABLET DAILY. Losartan Potassium 25 MG Oral TabletTake 1 tablet daily Losartan Potassium 50 MG Oral TabletTAKE 1 TABLET BY MOUTH EVERY DAY Meclizine HCl - 25 MG Oral TabletTAKE DIRECTED. metFORMIN HCl - 500 MG Oral TabletTake 1 tablet daily Sertraline HCl - 100 MG Oral TabletTAKE 1 TABLET DAILY. Turmeric 500 MG Oral Tablet1 tablet once daily Verapamil HCl ER 180 MG Oral Capsule Extended Release 24 HourTAKE 1 CAPSULE Daily Victoza 18 MG/3ML Subcutaneous Solution Pen-injectorINJECT 1.8 MG SUBCUTANEOUSLY EVERY DAY Allergies Medication hydroCHLOROthiazide CAPS Allergy; Anaphylaxis; Fever; Recorded By: Raegan Londono; 04/22/2021 1:12:46 PM gabapentin Recorded By: Sangeetha Terry; 05/21/2021 10:17:59 AM Social History Problems Caffeine use (V49.89) (Z78.9) 1-2 cups coffee daily Never smoker No alcohol use No illicit drug use Review of Systems Constitutional: not feeling tired. Eyes: no eyesight problems. ENT: no hearing loss and no nosebleeds. Cardiovascular: no intermittent leg claudication and as noted in HPI. Respiratory: no chronic cough and no shortness of breath. Gastrointestinal: no change in bowel habits and no blood in stools. Genitourinary: no urinary frequency. Skin: no skin rashes. Neurological: no seizures and no frequent falls. Psychiatric: no depression and not suicidal. All other systems have been reviewed and are negative for complaint. Vitals Vital Signs Recorded: [id number] 09:45AM Heart Rate74, R Radial Ganicvbv793, RUE, Sitting Kjumdkolj70, RUE, Sitting Height5 ft 3 in Whpicw338 lb BMI Nqemwggxmy84.42 kg/m2 BSA Calculated2.23 Tobacco Useb) No PHQ-2 #1. Over the last 2 weeks have you felt down, depressed or hopeless? (If yes, answer PHQ-9 below)No PHQ-2 #2. Over the last 2 weeks have you felt little interest or pleasure in doing things? (If yes, answer PHQ-9 below)No Falls Screening (Age 18+)a) No falls within the last year Physical Exam Constitutional: alert and in no acute distress. Eyes: no erythema, swelling or discharge from the eye . Neck: neck is supple, symmetric, trachea midline, no masses and no thyromegaly . Pulmonary: no increased work of breathing or signs of respiratory distress and lungs clear to auscultation. Cardiovascular: carotid pulses 2+ bilaterally with no bruit , JVP was normal, no thrills , regular rhythm, normal S1 and S2, no murmurs , pedal pulses 2+ bilaterally and no edema . Abdomen: (more content not included)... Normal [facility] Tobacco Screening.on 023 Adult depression screening assessment No [facility] [address] DO Work Phone: Fall risk assessment a) No falls within the last year [facility] G[address] 250 DO Work Phone: Tobacco use status [facility] b) No [facility] 250 DO Work Phone: FREE T4on 05-12-2022 Free T4 [Mass/Vol] 1.11 ng/dL Normal 0.76-1.[address] [facility] Comment on above: Performed By: #### F T4 #### [facility] [address] [place] [address] Dr. Karey Ordoñez GLYCOHEMOGLOBIN A1Con 2022 ADA RECOMMENDATION SEE BELOW Normal [facility] Comment on above: Result Comment: ADA RECOMMENDED LIMIT 4.0 - 6.0 ADA THERAPEUTIC TARGET < 7.0 ACTION SUGGESTED > 7.0 Performed By: #### F T4 #### [facility] [address] [place] [address] Dr. Karey Ordoñez Glucose [Mass/Vol] 114 mg/dL Normal [facility] Comment on above: Performed By: #### F T4 #### [facility] [address] [place] [address] Dr. Karey Ordoñez HbA1c (Bld) [Mass fraction] 5.6 % Normal 4.5-6.2 [facility] Comment on above: Performed By: #### F T4 #### [facility] [address] [address] [address] Karey Ordoñez PROF CHEM 8 (BAS METB)on Anion gap [Moles/Vol] 13.5 mmol/L Normal [facility] Comment on above: Performed By: #### T SH, BMP #### [facility] [address] [place] [address] Dr. Karey Ordoñez Calcium [Mass/Vol] 9.1 mg/dL Normal 8.5-10.1 [facility] Comment on above: Performed By: #### T SH, BMP #### [facility] [address] [place], [place] [id number] Dr. Karey Ordoñez Chloride [Moles/Vol] 103 mmol/L Normal 98-107 [facility] Comment on above: Performed By: #### T SH, BMP #### [facility] [address] [place] [address] Dr. Karey Ordoñez CO2 [Moles/Vol] 26.7 mmol/L Normal 21.0-32.0 [facility] Comment on above: Performed By: #### T SH, BMP #### [facility] [address] [place] [address] Dr. Karey Ordoñez Creatinine [Mass/Vol] 0.79 mg/dL Normal 0.55-1.02 [facility] Comment on above: Performed By: #### T SH, BMP #### [facility] [address] [place] [address] Dr. Karey Ordoñez EGFR-AF HONG [place]ER >60 Normal >=60 [facility] Comment on above: Performed By: #### T SH, BMP #### [facility] [address] [place] [address] Dr. Karey Ordoñez EGFR-NON AF [place]ER >60 Normal >=60 [facility] Comment on above: Performed By: #### T SH, BMP #### [facility] [address] [place] [address] Dr. Karey Ordoñez Glucose [Mass/Vol] 94 mg/dL Normal 74-106 [facility] Comment on above: Performed By: #### T SH, BMP #### [facility] [address] [place] [address] Dr. Karey Ordoñez Potassium [Moles/Vol] 4.2 mmol/L Normal 3.5-5.1 [facility] Comment on above: Performed By: #### T SH, BMP #### [facility] [address] [place] [address] Dr. Karey Ordoñez Sodium [Moles/Vol] 139 mmol/L Normal 136-145 [facility] Comment on above: Performed By: #### T SH, BMP #### [facility] [address] [place] [address] Dr. Karey Ordoñez Urea nitrogen [Mass/Vol] 12.0 mg/dL Normal 7.0-18.0 [facility] Comment on above: Performed By: #### T SH, BMP #### [facility] [address] [address] [address] Karey Ordoñez Urea nitrogen/Creatinine [Mass ratio] 15.2 mg/mg Normal [facility] Comment on above: Performed By: #### T SH, BMP #### [facility] [address] [address] [address] Karey Ordoñez TSHon 05-12-2022 TSH 1.098 uIU/mL Normal 0.358-3.740 [facility] Comment on above: Performed By: #### T SH, BMP #### [facility] [address] [place] [address] Dr. Karey Ordoñez FREE T3on 02-06-2022 FREE T3 1.79 pg/mlL Critically low 2.18-3.98 [facility] Comment on above: Performed By: #### F T3, TSH #### [facility] [address] [address] [address] Karey Ordoñez FREE T4on 02-06-2022 Free T4 [Mass/Vol] 1.12 ng/dL Normal 0.76-1.46 [facility] Comment on above: Performed By: #### F T4 #### [facility] [address] [place] [address] Dr. Karey Ordoñez TSHon 02-06-2022 TSH 2.571 uIU/mL Normal 0.358-3.740 [facility] Comment on above: Performed By: #### F T3, TSH #### [facility] [address] [place] [address] Dr. Karey Ordoñez MRI BRAIN WO CONon MRI BRAIN WO CON EXAMINATION: MRI BRA IN WO CON, 01/22/2022 12:32 PM EDT HISTORY: Paresthesia COMPARISON: None. TECHNIQUE: MRI of the brain was performed without IV contrast. FINDINGS: CEREBRUM: Minimal scattered white matter signal abnormality with largest focus being 4 mm in the right frontal white matter axial image 15. No restricted diffusion CEREBELLUM: No edema, hemorrhage, mass, acute infarction, or inappropriate atrophy. BRAINSTEM: No edema, hemorrhage, mass, acute infarction, or inappropriate atrophy. CSF SPACES: Ventricles, cisterns, and sulci are appropriate for age. No hydrocephalus, subarachnoid hemorrhage, or mass. SKULL: No mass or other significant visible lesion. SINUSES: Mild to moderate bilateral ethmoid and left frontal mucoperiosteal thickening ORBITS: Limited views are unremarkable. OTHER: Negative. IMPRESSION: Minimal white matter signal abnormality, nonspecific No acute infarct Bilateral ethmoid and left frontal sinus mucoperiosteal thickening Electronically authenticated by: VERO ATKINS Date: 2022-01-22 13:[address] [facility] [address] CSPINE WO CONon CT CSPINE WO CON EXAMINATION: CT CSPI NE WO CON HISTORY: Asthenia COMPARISON: CT head 01/15/2022, thoracic spine radiographs 06/24/2021 TECHNIQUE: CT imaging of the cervical spine without contrast. Dose reduction techniques were achieved by using automated exposure control and/or adjustment of mA and/or kV according to patient size and/or use of iterative reconstruction technique. FINDINGS: Craniocervical alignment is anatomic. Mild gradual reversal of the normal cervical lordosis at C4-C5, which may relate to muscle spasm. No spondylolisthesis. Vertebral body heights are preserved. Intervertebral disc spaces are maintained. No significant degenerative changes. No acute fractures. No significant osseous spinal canal or neuroforaminal stenosis. Prevertebral and paraspinal soft tissues are unremarkable. Imaged soft tissues of the neck have a normal non-contrast appearance. Visualized lung apices are clear. Mildly prominent bilateral level 3 lymph nodes with preserved fatty hilum and which do not meet CT size criteria for lymphadenopathy. Imaged intracranial structures are unremarkable. IMPRESSION: 1. No acute cervical spine findings. 2. Mildly prominent bilateral level 3 lymph nodes, which do not meet CT size criteria for lymphadenopathy, may be reactive. Electronically authenticated by: LALI PATEL Date: 2022-01-18 10:22 Normal [facility] US CAROTID ART BILon 022 US CAROTID ART LAWRENCE EXAMINATION: US CAROTID ART LAWRENCE HISTORY: Paresthesia COMPARISON: No relevant comparison available. TECHNIQUE: Duplex Doppler ultrasound analysis of carotid and vertebral arteries. . Bilateral carotid arterial duplex examination was performed using B-mode, color flow and spectral analysis. Carotid stenosis is reported according to validated velocity parameters, similar to NASCET criteria. FINDINGS: RIGHT CAROTID ARTERY: No visible stenosis or significant plaque. RIGHT VERTEBRAL: Antegrade flow. Subclavian: PSV: 153.1 cm/s EDV: 4.4 cm/s CCA: Prox: PSV: 109.2 cm/s EDV: 22.0 cm/s Mid: PSV: 115.6 cm/s EDV: 31.7 cm/s Distal: PSV: 114.0 cm/s EDV: 33.3 cm/s BULB: PSV: 91.4 cm/s EDV: 28.4 cm/s ICA: Prox: PSV: 78.4 cm/s EDV: 22.8 cm/s Mid: PSV: 83.6 cm/s EDV: 25.4 cm/s Distal: PSV: 65.5 cm/s EDV: 25.4 cm/s ECA: PSV: 90.3 cm/s EDV: 17.6 cm/s VERTEBRAL: PSV: 66.0 cm/s EDV: 20.8 cm/s ICA/CCA ratio: PSV: 0.8 EDV: 0.9 LEFT CAROTID ARTERY: No visible stenosis or significant plaque. LEFT VERTEBRAL: Antegrade flow. Subclavian: PSV: 136.2 cm/s EDV: 0.0 cm/s CCA: Prox: PSV: 152.8 cm/s EDV: 44.3 cm/s Mid: PSV: 147.7 cm/s EDV: 38.6 cm/s Distal: PSV: 105.9 cm/s EDV: 40.9 cm/s BULB: PSV: 67.8 cm/s EDV: 14.4 cm/s ICA: Prox: PSV: 59.6 cm/s EDV: 28.9 cm/s Mid: PSV: 84.9 cm/s EDV: 31.7 cm/s Distal: PSV: 83.3 cm/s EDV: 38.1 cm/s ECA: PSV: 78.9 cm/s EDV: 16.0 cm/s VERTEBRAL: PSV: 59.6 cm/s EDV: 24.1 cm/s ICA/CCA ratio: PSV: 0.6 EDV: 0.8 Other: A few slightly prominent anterior chain lymph nodes bilaterally; nonspecific. Small nodules within the thyroid gland. IMPRESSION: 1. 0-49% flow stenosis within the right left carotid arteries. 2. No significant atherosclerotic plaque. 3. Nonspecific, slightly prominent lymph nodes bilaterally. Correlate clinically and consider follow-up if clinically suspicious. Electronically authenticated by: ZINA GREGORY Date: 2022-01-17 18:33 Normal [facility] CT HEAD WO CONon 01-15-2022 CT HEAD WO CON EXAMINATION: CT HEAD/BRAIN W/O DYE HISTORY: Left-sided numbness and tingling, difficulty speaking COMPARISON: No relevant comparison available. TECHNIQUE: Axial CT images were obtained without IV contrast. Dose reduction techniques were achieved by using automated exposure control and/or adjustment of mA and/or kV according to patient size and/or use of iterative reconstruction technique. FINDINGS: BRAIN: No edema, hemorrhage, mass, acute infarction, or inappropriate atrophy. CSF SPACES: No hydrocephalus, subarachnoid hemorrhage, or mass. Appropriate for age. SKULL: No fracture, mass, or other significant visible lesion. SINUSES: No significant mucosal thickening or fluid on the limited views. ORBITS: No appreciable abnormality on the limited views. OTHER: Negative IMPRESSION: No acute intracranial abnormality Electronically authenticated by: VERO ATKINS Date: 2022-01-15 11:07 Normal [facility] MRI KNEE RT WO CONon 022 MRI KNEE RT WO CON EXAMINATION: MRI KNE E RT WO CON HISTORY: Pain of right knee joint COMPARISON: No relevant comparison available. TECHNIQUE: A complete multi-planar MRI was performed. FINDINGS: MEDIAL COMPARTMENT MEDIAL MENISCUS: No visible tear or significant degeneration. CARTILAGE: Mild chondromalacia BONES: Mild joint space narrowing with marginal osteophyte formation MCL AND MEDIAL CAPSULE: Normal medial collateral ligament and medial capsule. LATERAL COMPARTMENT LATERAL MENISCUS: No visible tear or significant degeneration. CARTILAGE: No visible defect. BONES: No marrow pathology, fracture, or significant arthropathy. LCL/POSTEROLAT COMPLEX: Normal lateral collateral ligament, fascicles, lateral capsule and ligaments. ANTERIOR COMPARTMENT PATELLA: No acute fracture or dislocation. Degenerative changes with marginal osteophyte formation CARTILAGE: Mild chondromalacia TENDONS: Increased signal insertion of the quadriceps onto the patella and patellar ligament at the tibial insertion EFFUSION: None. No synovitis or loose bodies. ACL: Normal appearing ligament. PCL: Normal appearing ligament. MENISCOFEMORAL: Normal meniscofemoral ligaments. OTHER: Negative. 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 Pain of right knee joint . COMPARISON: None. TECHNIQUE: 3 views. FINDINGS: No fracture or dislocation of the right knee is noted. Joint spaces well-maintained. Minimal spurring is noted involving the knee joint as well as the patellofemoral joint. Surrounding soft tissues are unremarkable. IMPRESSION: Early osteoarthritic changes of the right knee. Electronically authenticated by: VERO WILSON Date: 2021-12-10 06:40 Normal [facility] LIVER PROFILEon 10-29-2021 Albumin [Mass/Vol] 3.7 g/dL Normal 3.4-5.[address] [facility] Comment on above: Performed By: #### F T4 #### [facility] Laboratory [address] [place] [address] Dr. Karey Ordoñez Albumin/Globulin [Mass ratio] 0.9 {ratio} Normal [facility] Comment on above: Performed By: #### F T4 #### [facility] [address] [place] [address] Dr. Karey Ordoñez ALP [Catalytic activity/Vol] 111 U/L Normal 46-116 [facility] Comment on above: Performed By: #### F T4 #### [facility] [address] [place] [address] Dr. Karey Ordoñez ALT [Catalytic activity/Vol] 22 U/L Normal 14-59 [facility] Comment on above: Performed By: #### F T4 #### [facility] [address] [place] [address] Dr. Karey Ordoñez AST [Catalytic activity/Vol] 12 U/L Critically low 15-37 [facility] Comment on above: Performed By: #### F T4 #### [facility] [address] [place] [address] Dr. Karey Ordoñez BILI, CONJUGATED 0.1 mg/dL Normal 0.0-0.2 [facility] Comment on above: Performed By: #### F T4 #### [facility] [address] [place] [address] Dr. Karey Ordoñez Bilirubin [Mass/Vol] 0.5 mg/dL Normal 0.2-1.0 [facility] Comment on above: Performed By: #### F T4 #### [facility] [address] [place] [address] Dr. Karey Ordoñez Globulin (S) [Mass/Vol] 4.1 g/dL Normal [facility] Comment on above: Performed By: #### F T4 #### [facility] [address] [place] [address] Dr. Karey Ordoñez Protein [Mass/Vol] 7.8 g/dL Normal 6.4-8.[address] [facility] Comment on above: Performed By: #### F T4 #### [facility] [address] [place] [address] Dr. Karey Ordoñez INSULINon 10-02-2021 Insulin 10.5 uIU/mL Normal 2.6-24.9 [facility] Comment on above: Performed By: #### I NSULIN #### [facility] [address] [place] [address] Dr. Karey Ordoñez CBC AUTO DIFFon 10-01-2021 BASO # 0.0 103/ul Normal 0.0-0.1 [facility] Comment on above: Performed By: #### F T4 #### [facility] [address] [place] [address] Dr. Karey Ordoñez Basophils/100 WBC (Bld) 0.4 % Normal 0.2-2.0 [facility] Comment on above: Performed By: #### F T4 #### [facility] [address] [place] [address] Dr. Karey Ordoñez EO # 0.1 103/ul Normal 0.0-0.7 [facility] Comment on above: Performed By: #### F T4 #### [facility] [address] [place] [address] Dr. Karey Ordoñez Eosinophils/100 WBC (Bld) 1.1 % Normal 0.9-7.0 [facility] Comment on above: Performed By: #### F T4 #### [facility] [address] [place] [address] Dr. Karey Ordoñez Erythrocyte distribution width (RBC) [Ratio] 12.9 % Normal 11.0-15.0 [facility] Comment on above: Performed By: #### F T4 #### [facility] [address] [place] [address] Dr. Karey Ordoñez Hematocrit (Bld) [Volume fraction] 41.5 % Normal 36.0-48.0 [facility] Comment on above: Performed By: #### F T4 #### [facility] [address] [place] [address] Dr. Karey Ordoñez Hemoglobin (Bld) [Mass/Vol] 13.0 g/dL Normal 12.0-16.0 [facility] Comment on above: Performed By: #### F T4 #### [facility] [address] [place] [address] Dr. Karey Ordoñez IG # 0.04 10e3/ul Critically high 0.00-0.03 [facility] Comment on above: Performed By: #### F T4 #### [facility] [address] [place] [address] Dr. Karey Ordoñez IG % 0.5 % Normal 0.0-0.5 [facility] Comment on above: Performed By: #### F T4 #### [facility] [address] [place] [address] Dr. Karey Ordoñez LYMPH # 1.9 103/ul Normal 1.2-3.8 [facility] Comment on above: Performed By: #### F T4 #### [facility] [address] [place] [address] Dr. Karey Ordoñez Lymphocytes/100 WBC (Bld) 22.7 % Normal 20.5-60.0 [facility] Comment on above: Performed By: #### F T4 #### [facility] [address] [place] [address] Dr. Karey Ordoñez MANUAL DIFF REQ NO Normal [facility] Comment on above: Performed By: #### F T4 #### [facility] [address] [place] [address] Dr. Karey Ordoñez MCH (RBC) [Entitic mass] 28.9 pg Normal 26.7-34.0 [facility] Comment on above: Performed By: #### F T4 #### [facility] [address] [place] [address] Dr. Karey Ordoñez MCHC (RBC) [Mass/Vol] 31.3 g/dL Normal 29.9-35.2 [facility] Comment on above: Performed By: #### F T4 #### [facility] [address] [place] [address] Dr. Karey Ordoñez MCV (RBC) [Entitic vol] 92.2 fL Normal 81.0-99.0 [facility] Comment on above: Performed By: #### F T4 #### [facility] [address] [place] [address] Dr. Karey Ordoñez MONO # 0.6 103/ul Normal 0.3-0.8 [facility] Comment on above: Performed By: #### F T4 #### [facility] [address] [place] [address] Dr. Karey Ordoñez Monocytes/100 WBC (Bld) 6.8 % Normal 1.7-12.0 [facility] Comment on above: Performed By: #### F T4 #### [facility] [address] [place] [address] Dr. Karey Ordoñez NEUT # 5.8 103/ul Normal 1.4-6.5 [facility] Comment on above: Performed By: #### F T4 #### [facility] [address] [place] [address] Dr. Karey Ordoñez Neutrophils/100 WBC (Bld) 68.5 % Normal 43.0-75.0 [facility] Comment on above: Performed By: #### F T4 #### [facility] [address] [place] [address] Dr. Karey Ordoñez Platelet mean volume (Bld) [Entitic vol] 12.8 fL Normal 9.5-13.5 [facility] Comment on above: Performed By: #### F T4 #### [facility] [address] [place] [address] Dr. Karey Ordoñez PLT 231 103/ul Normal 150-450 [facility] Comment on above: Performed By: #### F T4 #### [facility] [address] [place] [address] Dr. Karey Ordoñez RBC 4.50 106/ul Normal 4.20-5.40 [facility] Comment on above: Performed By: #### F T4 #### [facility] [address] [place] [address] Dr. Karey Ordoñez WBC 8.5 103/ul Normal 4.0-11.0 [facility] Comment on above: Performed By: #### F T4 #### [facility] [address] [place] [address] Dr. Karey Ordoñez FREE T4on 10-01-2021 Free T4 [Mass/Vol] 1.27 ng/dL Normal 0.76-1.46 [facility] Comment on above: Performed By: #### F T4 #### [facility] [address] [place] [address] Dr. Karey Ordoñez GLYCOHEMOGLOBIN A1Con 2021 ADA RECOMMENDATION SEE BELOW Normal [facility] Comment on above: Result Comment: ADA RECOMMENDED LIMIT 4.0 - 6.0 ADA THERAPEUTIC TARGET < 7.0 ACTION SUGGESTED > 7.0 Performed By: #### A 1C #### [facility] [address] [place] [address] Dr. Karey Ordoñez Glucose [Mass/Vol] 123 mg/dL Normal [facility] Comment on above: Performed By: #### A 1C #### [facility] [address] [place] [address] Dr. Karey Ordoñez HbA1c (Bld) [Mass fraction] 5.9 % Normal 4.5-6.2 [facility] Comment on above: Performed By: #### A 1C #### [facility] [address] [place] [address] Dr. Karey Ordoñez LIPID PROFILEon 10-01-2021 CHOL-HDL RATIO NORM SEE BELOW Normal [facility] Comment on above: Result Comment: 3.3 - 4.4 LOW RISK 4.4 - 7.1 AVERAGE RISK 7.1 - 11.0 MODERATE RISK >11.0 HIGH RISK Performed By: #### F T4 #### [facility] [address] [address] [address] Karey Ordoñez Cholesterol [Mass/Vol] 182 mg/dL Normal <=200 [facility] Comment on above: Performed By: #### F T4 #### [facility] [address] [address] [address] Karey Ordoñez Cholesterol in HDL [Mass/Vol] 52 mg/dL Normal 40-60 [facility] Comment on above: Performed By: #### F T4 #### [facility] [address] [place] [address] Dr. Karey Ordoñez Cholesterol in LDL [Mass/Vol] 115.8 mg/dL Normal [facility] Comment on above: Performed By: #### F T4 #### [facility] [address] [address] [address] Karey Ordoñez Cholesterol.total/Ch olesterol in HDL [Mass ratio] 3.5 {ratio} Normal [facility] Comment on above: Performed By: #### F T4 #### [facility] [address] [place] [address] Dr. Karey Ordoñez HDL NORMAL > or = 60 mg/dl - LO W CARDIOVASCULAR RISK <40 mg/dl - HIGH CARDIOVASCULAR RISK Normal [facility] Comment on above: Performed By: #### F T4 #### [facility] [address] [address] [address] Karey Ordoñez LDL CALC NORMAL SEE BELOW Normal [facility] Comment on above: Result Comment: <100 mg/dl OPTIMAL 100 - 129 mg/dl NEAR OR ABOVE OPTIMAL 130 - 159 mg/dl BORDERLINE HIGH 160 - 189 mg/dl HIGH >190 mg/dl VERY HIGH Performed By: #### F T4 #### [facility] [address] [place] [address] Dr. Karey Ordoñez Triglyceride [Mass/Vol] 71 mg/dL Normal <=150 [facility] Comment on above: Performed By: #### F T4 #### [facility] [address] [place] [address] Dr. Karey Ordoñez VLDL CALC 14.2 mg/dL Normal [facility] Comment on above: Performed By: #### F T4 #### [facility] [address] [place] [address] Dr. Karey Ordoñez PROF 14(COMP METB)on 022 Albumin [Mass/Vol] 3.9 g/dL Normal 3.4-5.[address] [facility] Comment on above: Performed By: #### F T4 #### [facility] [address] [place] [address] Dr. Karey Ordoñez Albumin/Globulin [Mass ratio] 0.9 {ratio} Normal [facility] Comment on above: Performed By: #### F T4 #### [facility] [address] [place] [address] Dr. Karey Ordoñez ALP [Catalytic activity/Vol] 117 U/L Critically high 46-116 [facility] Comment on above: Performed By: #### F T4 #### [facility] [address] [place] [address] Dr. Karey Ordoñez ALT [Catalytic activity/Vol] 25 U/L Normal 14-59 [facility] Comment on above: Performed By: #### F T4 #### [facility] [address] [place] [address] Dr. Karey Ordoñez Anion gap [Moles/Vol] 14.1 mmol/L Normal [facility] Comment on above: Performed By: #### F T4 #### [facility] [address] [place] [address] Dr. Karey Ordoñez AST [Catalytic activity/Vol] 14 U/L Critically low 15-37 [facility] Comment on above: Performed By: #### F T4 #### [facility] [address] [place] [address] Dr. Karey Ordoñez Bilirubin [Mass/Vol] 0.5 mg/dL Normal 0.2-1.0 [facility] Comment on above: Performed By: #### F T4 #### [facility] [address] [address] [address] Karey Ordoñez Calcium [Mass/Vol] 9.1 mg/dL Normal 8.5-10.[address] [facility] Comment on above: Performed By: #### F T4 #### [facility] [address] [address] [address] Karey Ordoñez Chloride [Moles/Vol] 102 mmol/L Normal 98-107 [facility] Comment on above: Performed By: #### F T4 #### [facility] [address] [address] [address] Karey Ordoñez CO2 [Moles/Vol] 27.7 mmol/L Normal 21.0-32.0 [facility] Comment on above: Performed By: #### F T4 #### [facility] [address] [place] [address] Dr. Karey Ordoñez Creatinine [Mass/Vol] 0.76 mg/dL Normal 0.55-1.02 [facility] Comment on above: Performed By: #### F T4 #### [facility] [address] [address] [address] Karey Ordoñez EGFR-AF HONG KONGER >60 Normal >=60 [facility] Comment on above: Performed By: #### F T4 #### [facility] [address] [place] [address] Dr. Karey Ordoeñz EGFR-NON AF HONG KONGER >60 Normal >=60 [facility] Comment on above: Performed By: #### F T4 #### [facility] [address] [place] [address] Dr. Karey Ordoñez Globulin (S) [Mass/Vol] 4.5 g/dL Normal [facility] Comment on above: Performed By: #### F T4 #### [facility] [address] [place] [address] Dr. Karey Ordoñez Glucose [Mass/Vol] 101 mg/dL Normal 74-106 [facility] Comment on above: Performed By: #### F T4 #### [facility] [address] [address] [address] Karey Ordoñez Potassium [Moles/Vol] 3.8 mmol/L Normal 3.5-5.1 [facility] Comment on above: Performed By: #### F T4 #### [facility] [address] [place] [address] Dr. Karey Ordoñez Protein [Mass/Vol] 8.4 g/dL Critically high 6.4-8.2 [facility] Comment on above: Performed By: #### F T4 #### [facility] [address] [place] [address] Dr. Karey Ordoñez Sodium [Moles/Vol] 140 mmol/L Normal 136-[address] [facility] Comment on above: Performed By: #### F T4 #### [facility] [address] [place] [address] Dr. Karey Ordoñez Urea nitrogen [Mass/Vol] 10.0 mg/dL Normal 7.0-18.0 [facility] Comment on above: Performed By: #### F T4 #### [facility] [address] [place] [address] Dr. Karey Ordoñez Urea nitrogen/Creatinine [Mass ratio] 13.2 mg/mg Normal [facility] Comment on above: Performed By: #### F T4 #### [facility] [address] [place] [address] Dr. Karey Ordoñez TSHon 10-01-2021 TSH 2.445 uIU/mL Normal 0.358-3.740 [facility] Comment on above: Performed By: #### F T4 #### [facility] [address] [place] [address] Dr. Karey Ordoñez TSH RANGE SEE BELOW Normal [facility] Comment on above: Result Comment: <0.3 4 UIU/ml HYPERTHYROID 0.34-5.60 UIU/ml EUTHYROID >5.60 UIU/ml HYPOTHYROID Performed By: #### F T4 #### [facility] [address] [place] [address] Dr. Karey Ordoñez Vital Signs Date Time Vital Sign Value Performing Clinician Faci lity 02-17-2023 08:48-0400 Body weight 126.55 kg Alberto Marcus MD Work Phone: [facility] 02-17-2023 08:48-0400 Diastolic blood pressure 82 mm[Hg] Alberto Marcus MD Work Phone: [facility] 02-17-2023 08:48-0400 Heart rate 96 /min Alberto Marcus MD Work Phone: [facility] 02-17-2023 08:48-0400 SaO2% (BldA) [Mass fraction] 98 % Alberto Marcus MD Work Phone: [facility] 02-17-2023 08:48-0400 Systolic blood pressure 116 mm[Hg] Alberto Marcus MD Work Phone: [facility] 06-30-2022 09:45-0500 Body height 160.02 cm Allison Mendez Work Phone: [facility] [employer] 250 DO Work Phone: 06-30-2022 09:45-0500 Body mass index (BMI) [Ratio] 49.42 kg/m2 Allisonhandy Mendez Work Phone: [facility] 250 DO Work Phone: 06-30-2022 09:45-0500 Body surface area Derived from formula 2.23 m2 Allison Mendez Work Phone: [facility] 250 DO Work Phone: 06-30-2022 09:45-0500 Body weight 126.55 kg Allison Mednez Work Phone: [facility] 250 DO Work Phone: 06-30-2022 09:45-0500 Diastolic blood pressure 80 mm[Hg] Allison Mendez Work Phone: [facility] 250 DO Work Phone: 06-30-2022 09:45-0500 Heart rate 74 /min Allison Mccluresrinivasa Work Phone: [facility] 250 DO Work Phone: 06-30-2022 09:45-0500 Systolic blood pressure 128 mm[Hg] Allison Bullock Heidimichellesrinivasa Work Phone: [facility] 250 DO Work Phone: Encounters Encounter Date Encounter Type Care Provider Facility Start: 02-17-2023 End: 02-18-2023 ambulatory ALBERTO MARCUS Facility:[facility] Start: 02-17-2023 End: 02-17-2023 Office outpatient new 60 minutes Alberto Marcus MD Work Phone: Rheumatology Comment on above: Fibromyalgia (Primar y Dx); Sedimentation rate elevation; Fatigue, unspecified type; Vitamin D deficiency Start: 07-07-2022 Encounter for antibo dy response examination LAURO ANDREWS BINHLorri [facility] Start: 07-03-2022 End: 07-04-2022 ambulatory LAURO MENDEZ Facility:[facility] Start: 07-03-2022 End: 07-04-2022 Encounter for antibody response examination LAURO MCCLUREMARRYLorri Facility:[facility] Start: 06-30-2022 Office outpatient vi sit 15 minutes Allison Bullock Heidimichellesrinivasa Work Phone: [facility] 250 DO Work Phone: Start: 06-30-[address] Chandler Wilkes II Facility: Start: 05-12-2022 End: 05-13-2022 ambulatory LAURO ANDREWS HEIDIMichelleMARRYLorri Facility:H1 Start: 03-04-2022 End: 03-04-2022 ambulatory JESSE HATCH Facility:[facility] Start: 02-06-2022 End: 02-07-2022 ambulatory LAURO ANDREWS HEIDIMichelleSRINIVASA Facility:[facility] Start: 01-22-2022 End: 01-23-2022 ambulatory LAURO ANDREWS HEIDIMichelleMARRYZ Facility:[facility] Start: 01-18-2022 End: 01-18-2022 ambulatory LAURO ALLISON AICHHOLZ Facility:[facility] Start: 01-17-2022 End: 01-18-2022 ambulatory CROP ROLLER ALLISON AICHHOLZ Facility:[facility] Start: 01-15-2022 End: 01-15-2022 ambulatory LAURO ALLISON AICHHOLZ Facility:[facility] Start: 12-18-2021 End: 12-19-2021 ambulatory LAURO ALLISON AICHHOLZ Facility:[facility] Start: 12-09-2021 End: 12-10-2021 ambulatory SHAIKH Michelle LARA Facility:[facility] Start: 10-29-2021 End: 10-30-2021 ambulatory LAURO ALLISON AICHHOLZ Facility:[facility] Start: 10-01-2021 End: 10-02-2021 ambulatory CROP ROLLER ALLISON AICHHOLZ Facility:[facility] Start: 08-13-2021 End: 10-01-2021 ambulatory LAURO ALLISON AICHHOLZ Facility:[facility] Procedures Date Procedure Procedure Detail Performing Clinician Arthroscopy of knee Allison Ara Aichholz Work Phone: section Allison Ara Aic hholz Work Phone: Dilation and curettage Allison Ara Aichholz Work Phone: Hysterectomy Allison Ara Aichhol z Work Phone: NEGATED: Highlighted row has not occurred! Colonoscopy Allison Ara Aichholz Work Phone: Plan of Treatment Date Care Activity Detail Author Start: 04-11-2024 FUV, Provider: Chandler Wilkes, Status: Pen, Time: 11:00 AM FUV, Provider: Chandler Wilkes, Status: Fausto, Time: 11:00 AM [facility] 250 DO Work Phone: Start: 02-17-2023 End: 04-19-2023 Cobalamin (Vitamin B12) [Mass/volume] in Serum or Plasma [facility] Work Phone: Comment on above: Expected: 02/17/2023 , Expires: 04/19/2023 Start: 02-17-2023 End: 04-19-2023 IMMUNOGLOBULINS YARI IMMUNOGLOBULINS YARI Lab Routine Sedimentation rate elevation Expected: 02/17/2023, Expires: 04/19/2023 [facility] Work Phone: Comment on above: Expected: 02/17/2023 , Expires: 04/19/2023 Start: 02-17-2023 End: 04-19-2023 PROTEIN ELECTROPHORESIS SERUM W/INTERP PROTEIN ELECTROPHORESIS SERUM W/INTERP Lab Routine Sedimentation rate elevation Expected: 02/17/2023, Expires: 04/19/2023 [facility] Work Phone: Comment on above: Expected: 02/17/2023 , Expires: 04/19/2023 Start: 01-09-2023 Covid-19 Vaccine () Covid-19 Vaccine () [facility] Start: 01-09-2023 Influenza vaccination Influenza Vacc ine (#1) [facility] Start: 05-11-2022 Depression Assessment Depression Ass essment [facility] Start: 12-25-2013 HPV Testing HPV Testing [facility] Start: 12-25-2004 Pap Testing Pap Testing [facility] Start: 12-25-2002 Urine microalbumin profile DTaP,Tdap,Td Vaccine (1 - Tdap) [facility] Start: 12-25-2001 Hepatitis C Screening Hepatitis C Sc reening [facility] Start: 12-25-2001 HIV Screening HIV Screening [facility] Start: 1985 Hepatitis B Vaccine (1 of 3 - 3-dose series) Hepatitis B Vaccine (1 of 3 - 3-dose series) [facility] Immunizations Immunization Date Immunization Notes Care Provider Michael cortez 09-10-2020 Pfizer-BioNTech COVI D-19 Vacc 30 MCG/0.3ML Intramuscular Suspension [facility] Work Phone: 08-20-2020 Pfizer-BioNTech COVI D-19 Vacc 30 MCG/0.3ML Intramuscular Suspension Allison Mendez Work Phone: [facility] Work Phone: Payers Date Payer Category Payer Medicaid [employer] [place] [employer] [id number] 2022-Present [phone] [address] [place] [address] Medicaid [id number] 1983 Unknown [id number] 1983 Unknown [id number] [id number] 1983 Unknown [id number] [id number] 1983 Unknown [id number] [id number] 1983 Unknown [id number] [id number] 1983 Unknown [id number] [id number] 1983 Unknown [id number] [id number] 1983 Unknown [id number] [id number] 1983 Unknown [id number] [id number] 1983 Unknown [id number] [id number] 1983 Unknown [id number] [id number] 1983 Unknown [id number] [id number] 1983 Unknown [id number] [id number] 1983 Unknown [id number] [id number] 1959 Unknown [id number] Unknown LJ Doe [employer] Social History Date Type Detail Facility Start: 02-13-2023 End: 02-17-2023 No alcohol use No alcohol use [facility] Comment on above: 1-2 cups coffee brian y; Start: 02-17-2023 Tobacco smoking stat us OHIS Never smoked tobacco [facility] Start: 02-17-2023 Tobacco use and exposure Smoke less tobacco non-user [facility] Start: 02-13-2023 End: 02-17-2023 Tobacco use panel [facility] Adult Depression Scr eening Assessment 0 [facility] Start: 1985 Sex Assigned At Not on file C [facility] Progress note 02-17-2023 Note Date & Type Note Facility 02-17-2023 Note HNO ID: [id number] Author: Alberto Marcus MD Service: ? Author Type: Physician Type: Progress Notes Filed: 02/17/2023 10:02 AM Note Text: Rheumatology Clinic Date of Service: 02/17/2023 Patient: Denisha Velasco Medical Record: [id number] Last Rheumatology visit: None at [facility] History of Present Illness Denisha Velasco is a 37 year old White female who presents on 02/17/2023 for an in-person visit for evaluation of Consult. HISTORY OF PRESENT ILLNESS 37 year old female who presents for elevated inflammatory markers and pain. Past medical history: precancerous lesions of the skin, precancerous uterine lesions? medial meniscal tear, exercise induced asthma, pre-diabetes, HTN, HLD, hypothyroidism, vertigo, migraines, ??TIA (unclear dx), h/o costochondritis, sleep apnea Past surgical history: hysterectomy, medial meniscal repair, c section, She notes she has dogs and when they step on her legs she has pain. When she bumps into things the pain lingers longer than expected. She has constant pain in her back and notes more recently in her elbows. She has had back pain for about 12 years. She has pain in her lower back and upper back. Notices the pain is typically when she is trying to sleep. She has area that has back spasms. Since she had mole removal, she has had pain in her back. Activity such as laundry, dishes and bringing groceries in, yard work, vacuuming aggravates her pain. Resting helps with pain is increased. She has had bilateral elbow pain for a few months. Picking up heavy things aggravates her elbows. Inflammatory markers were checked because she described when people touch her it is painful. She has fatigue. She has history of sleep apnea, has not been using her CPAP since October since her moles have been removed. Has noticed increase in fatigue since stopping this. Not waking up feeling refreshed. She has noticed these symptoms of sensitivity to touch for about 20 years. She has brain fog all the time. Also notes difficulty with time frame (memories 2wks vs. 2 months), forgets where she is driving. No rashes No photosensitivity No recurrent mucosal ulcers No raynauds Notes 1 episode of hands swelling up and being pruritic No blood clots ++3 children, pre-eclampsia in all 3 pregnancies. No h/o miscarriages No dry eye or dry mouth Labs: normal T4, normal LFT, normal TSH ESR 61, 42, 59 mm/hr Normal CRP Negative RF Negative LEONARD Normal UA Patient-Entered Data PROMIS Assessments PROMIS Global Health - (T-Scores - the mean of general population = 50. Five points is a clinically meaningful difference.) 02/13/2023 Physical T-Score 34.9 Mental T-Score 33.8 PROMIS CAT Pain Interference 02/13/2023 PROMIS Pain Interference T-Score (range: 10 - 90) 64 (moderate) PROMIS Pain Interference Percentile 8 % PROMIS CAT Fatigue 02/13/2023 PROMIS Fatigue T-Score 64 (moderate) PROMIS Fatigue Percentile 8 % PROMIS PHYSICAL FUNCTION T-SCORE 02/13/2023 PROMIS Physical Function T-Score 35 (moderate dysfunction) Physical Function Percentile 7 % RAPID 3 Jung Activities of Daily Living 02/13/2023 9:15 PM Dress self? Without ANY difficulty Get in and out of bed? With SOME difficulty Walk outdoors? Without ANY difficulty Wash and dry body? Without ANY difficulty Get in and out of car? With SOME difficulty RAPID 3 Disease Activity Weighed Score Levels: 0 - 1: Near Remission 1.3 - 2.0: Low Severity 2.3 - 4.0: Moderate Severity 4.3 - 10.0: High Severity RAPID-3 Weighed Score 02/13/2023 RAPID 3 Weighed Score 5.06 (High Severity (HS)) Patient Health Questionnaire (PHQ-9) No flowsheet data found.(0-4) minimal depression, (5-9) mild depression, (10-14) moderate depression, (15-19) moderately severe depression, (20-27) severe depression Review of Systems Review of Systems CONSTITUTION: Negative for: Fever and Recent weight change HEENT: Negative for: Nosebleeds, Mouth sores, Trouble swallowing and Dry mouth RESPIRATORY: Negative for: Cough, Shortness of breath and Pain with breathing GASTROINTESTINAL: Negative for: Melena, Diarrhea, Heartburn and Abdominal pain MUSCULOSKELETAL: Positive for: Arthralgias, Myalgias, Joint swelling and Morning Joint Stiffness Negative for: Muscle weakness NEUROLOGICAL: Positive for: Headaches and Memory loss Negative for: Numbness SKIN: Negative for: Rash, Skin changes, Hair loss and Nail changes EYES: Negative for: Eye pain, Eye redness, Eye dryness and visual disturbance CARDIOVASCULAR: Positive for: Chest pain and Leg swelling GENITOURINARY: Negative for: Dysuria and Hematuria HEMATOLOGIC/LYMPHATIC: All other reviewed and negative other than HPI. Current Medications Current Outpatient Medications on File Prior to Visit Medication Sig VICTOZA 3-ROME 0.6 mg/0.1 mL (18 mg/3 mL) INJECT 1.8mg SUBCUTANEOUSLY DAILY metFORMIN (GLUCOPHAGE) 500 mg tablet 1 (one) time each day a (more content not included)... [facility] Instructions 02-17-2023 Patient Instructions Note Date & Type Note Facility 02-17-2023 Instructions Alberto Marcus MD - 02/17/2023 9:27 AM EDT This condition is associated with abnormal central processing of various peripheral stimuli including pain. Fibromyalgia is a musculoskeletal manifestation of this condition. It is one of the most frequent generalized pain disorders with poorly understood neurobiological mechanisms. Despite extensive research, the exact cause of fibromyalgia remains unknown and thus, there is no disease modifying therapy available for this condition that can favorably alter the natural history of this disease. Fibromyalgia is a very common condition and is a diagnosis of inclusion rather than that of exclusion, i.e. it can co-exist with other concomitant rheumatologic and/or non-rheumatologic conditions. A meta-analysis from the [facility] in [place] suggested that concomitant fibromyalgia is common in patients with inflammatory arthritis, which can have a major impact on assessing disease severity and treatment decisions. The overall prevalence of fibromyalgia was 21% among patients with rheumatoid arthritis and 13% in ankylosing spondylitis, whereas the condition is reported in approximately 1% to 5% of the general population, according to Wyatt Luke, [facility], PhD, of the [facility] in [place], and colleagues. The cornerstones of therapy for fibromyalgia (based on level 1 evidence) are regular aerobic exercise (stationary bike, pool therapy), optimal sleep, and optimal treatment of depression. Optimal quality sleep (especially deep sleep - phase 3/4 NREM) is important to achieve. If your sleep remains disturbed, you might need to have a sleep study to identify a primary sleep disorder that might need concomitant treatment. You might also benefit from relaxation techniques such as yoga, elif chi, acupuncture, or biofeedback to help deal better with stress. I emphasize that all the three aspects of the treatment (sleep, exercise, depression) be addressed simultaneously for maximum benefit and effective treatment of this condition. Doing one or the other will result in less than an optimal response to treatment. Medications sometimes used to treat fibromyalgia include those to help correct sleep disturbances and depression such as low dose antidepressants (Cymbalta or Savella) or non-habit forming sedatives and mild analgesics such as Tylenol. Lyrica is another drug that has been FDA approved for treatment of fibromyalgia. Narcotics have been found to be not only ineffective, but harmful and habit forming, and should be avoided. Therapy must be highly individualized. Most signs and symptoms of fibromyalgia can be managed by primary care providers under the guidance of a specialist. So please discuss the following with your primary care provider: - Aquatic therapy - Routine low grade aerobic exercise - Relaxation techniques / mindfulness / yoga /Elif Chi / Qi Gong - Improvement of sleep hygiene - Appropriately address depression / anxiety with SNRIs - Can use Gabapentin and Tricyclics for symptomatic benefit - Occupational therapy evaluation for desensitization therapy. For additional information please visit the following excellent resources that also outlines the management guidelines of fibromyalgia: (1) [email or web address]/I-Am-A/[email or web address]/[email or web address] (2) [email or web address] documented in this encounter [facility] History of Present illness Narrative 02-17-2023 Albreto Marcus MD - 02/17/2023 8:49 AM EDT Note Date & Type Note Facility 02-17-2023 History of Presen t illness Narrative Images from the original note were not included. Rheumatology Clinic Date of Service: 02/17/2023 Patient: Denisha Velasco Medical Record: [id number] Last Rheumatology visit: None at [facility] History of Present Illness Denisha Velasco is a 37 year old White female who presents on 02/17/2023 for an in-person visit for evaluation of Consult. HISTORY OF PRESENT ILLNESS 37 year old female who presents for elevated inflammatory markers and pain. Past medical history: precancerous lesions of the skin, precancerous uterine lesions? medial meniscal tear, exercise induced asthma, pre-diabetes, HTN, HLD, hypothyroidism, vertigo, migraines, ??TIA (unclear dx), h/o costochondritis, sleep apnea Past surgical history: hysterectomy, medial meniscal repair, c section, She notes she has dogs and when they step on her legs she has pain. When she bumps into things the pain lingers longer than expected. She has constant pain in her back and notes more recently in her elbows. She has had back pain for about 12 years. She has pain in her lower back and upper back. Notices the pain is typically when she is trying to sleep. She has area that has back spasms. Since she had mole removal, she has had pain in her back. Activity such as laundry, dishes and bringing groceries in, yard work, vacuuming aggravates her pain. Resting helps with pain is increased. She has had bilateral elbow pain for a few months. Picking up heavy things aggravates her elbows. Inflammatory markers were checked because she described when people touch her it is painful. She has fatigue. She has history of sleep apnea, has not been using her CPAP since October since her moles have been removed. Has noticed increase in fatigue since stopping this. Not waking up feeling refreshed. She has noticed these symptoms of sensitivity to touch for about 20 years. She has brain fog all the time. Also notes difficulty with time frame (memories 2wks vs. 2 months), forgets where she is driving. No rashes No photosensitivity No recurrent mucosal ulcers No raynauds Notes 1 episode of hands swelling up and being pruritic No blood clots ++3 children, pre-eclampsia in all 3 pregnancies. No h/o miscarriages No dry eye or dry mouth Labs: normal T4, normal LFT, normal TSH ESR 61, 42, 59 mm/hr Normal CRP Negative RF Negative LEONARD Normal UA Patient-Entered Data PROMIS Assessments PROMIS Global Health - (T-Scores - the mean of general population = 50. Five points is a clinically meaningful difference.) 02/13/2023 Physical T-Score 34.9 Mental T-Score 33.8 PROMIS CAT Pain Interference 02/13/2023 PROMIS Pain Interference T-Score (range: 10 - 90) 64 (moderate) PROMIS Pain Interference Percentile 8 % PROMIS CAT Fatigue 02/13/2023 PROMIS Fatigue T-Score 64 (moderate) PROMIS Fatigue Percentile 8 % PROMIS PHYSICAL FUNCTION T-SCORE 02/13/2023 PROMIS Physical Function T-Score 35 (moderate dysfunction) Physical Function Percentile 7 % 3 Jung Activities of Daily Living 02/13/2023 9:15 PM Dress self? Without ANY difficulty Get in and out of bed? With SOME difficulty Walk outdoors? Without ANY difficulty Wash and dry body? Without ANY difficulty Get in and out of car? With SOME difficulty RAPID 3 Disease Activity Weighed Score Levels: 0 - 1: Near Remission 1.3 - 2.0: Low Severity 2.3 - 4.0: Moderate Severity 4.3 - 10.0: High Severity RAPID-3 Weighed Score 02/13/2023 RAPID 3 Weighed Score 5.06 (High Severity (HS)) Patient Health Questionnaire (PHQ-9) No flowsheet data found.(0-4) minimal depression, (5-9) mild depression, (10-14) moderate depression, (15-19) moderately severe depression, (20-27) severe depression Review of Systems Review of Systems CONSTITUTION: Negative for: Fever and Recent weight change HEENT: Negative for: Nosebleeds, Mouth sores, Trouble swallowing and Dry mouth RESPIRATORY: Negative for: Cough, Shortness of breath and Pain with breathing GASTROINTESTINAL: Negative for: Melena, Diarrhea, Heartburn and Abdominal pain MUSCULOSKELETAL: Positive for: Arthralgias, Myalgias, Joint swelling and Morning Joint Stiffness Negative for: Muscle weakness NEUROLOGICAL: Positive for: Headaches and Memory loss Negative for: Numbness SKIN: Negative for: Rash, Skin changes, Hair loss and Nail changes EYES: Negative for: Eye pain, Eye redness, Eye dryness and visual disturbance CARDIOVASCULAR: Positive for: Chest pain and Leg swelling GENITOURINARY: Negative for: Dysuria and Hematuria HEMATOLOGIC/LYMPHATIC: All other reviewed and negative other than HPI. Current Medications Current Outpatient Medications on File Prior to Visit Medication Sig VICTOZA 3-ROME 0.6 mg/0.1 mL (18 mg/3 mL) INJECT 1.8mg SUBCUTANEOUSLY DAILY metFORMIN (GLUCOPHAGE) 500 mg tablet 1 (one) time each day at the same time. meclizine (ANTIVERT) 25 mg tab 1 (one) time each day at the same time. busPIRone (BUSPAR) 10 mg tablet Take 1 tablet by mouth every 12 hours. losartan (COZAAR) 50 mg tablet 1 (one) time each day at the same time. cyclobenzaprine (FLEXERIL) 10 mg tablet 1 (one) time each day at the same time. doxepin capsule 10 mg Take 10-20 mg by mouth daily at bedtime. atorvastatin (LIPITOR) 10 mg tablet Take 10 mg by mouth. verapamil ER 180 mg 24 hr capsule Take 1 capsule by mouth every afternoon. levothyroxine (SYNTHROID) 150 mcg tablet TAKE 1 TABLET BY MOUTH 2 (TWO) HOURS prior to any food/drink/meds first thing IN THE MORNING aspirin 81 mg cap magnesium gluconate (MAG-G) 27 mg (500 mg) tab Take by mouth once daily. Twice daily TURMERIC ORAL Take by mouth. 1-2 per day No current facility-administered medications on file prior to visit. Labs Labs: normal T4, normal LFT, normal TSH ESR 61, 42, 59 mm/hr Normal CRP Negative RF Negative LEONARD Normal UA Imaging Not available for review. Physical Exam BP 116/82 Pulse 96 Wt 279 lb (126.6kg) SpO2 98% Exam: GENERAL: Well appearing EXT:. No edema. SKIN: Warm, dry, no significant rashes, no significant bruising. NEURO: A&Ox3. Mental status and speech normal. MSK: Neck: Flexion, extension, and lateral rotation WNL. Spine: +TTP at upper thoracic spine midline and paraspinal. +TTP of lumbar spine - paraspinal Shoulders: Intact ROM without reported pain. No appreciable swelling or tenderness with palpation. Elbows: No flexion contractures. No appreciable swelling, deformities +TTP of lateral epicondyle Wrists: No limitation of flexion or extension. No appreciable swelling or tenderness with palpation. Hands: No evidence of synovitis or tenderness with palpation. Able to make full fist bilaterally. Knees: No gross deformity. No appreciable effusion. Impression and Plan Diagnoses: (M79.7) Fibromyalgia (primary encounter diagnosis) (R70.0) Sedimentation rate elevation (R53.83) Fatigue, unspecified type (E55.9) Vitamin D deficiency Denisha is a 37 year old female who presents for evaluation of pain and elevated inflammatory markers. She has abnormal pain when she is touched or when her small dogs walk on her legs. Because of this, inflammatory markers were checked. ESR was found to be 61, 42 and 59 mm/hr in November, December and January. CRP was normal. She notes this pain and increased sensitivity has been present for about 20 years. She also has significant fatigue. She has a diagnosis of IRENE for which she uses a CPAP but has not been using this since October due to increase in back pain. Her pain is located in the area where she had recent mole removed. Feels she has muscle spasms in this area. Taking flexeril. Has been minimally helpful at night. She has noticed increase in fatigue since not using CPAP. She notices periods of improved pain and energy and periods where symptoms worsen. She increases activity significantly when she is feeling well and then feels her symptoms worsen after this. She has unrefreshed sleep. She has cognitive symptoms such as brain fog and memory difficulties. On exam, she has no signs of synovitis. She has areas of healing rash on her forehead. Bilateral elbows with tenderness of lateral epicondyle. Labs show negative LEONARD, RF, normal CMP, TSH. Elevated ESR and normal CRP. We discussed at this time, I have low suspicion for autoimmune rheumatic disease. Her increased pain sensitivity, fatigue, unrefreshed sleep and cognitive symptoms are consistent with fibromyalgia. She does have mild tennis elbow as well. Regarding her elevated ESR, she has no systemic symptoms such as fever, unintentional weight loss, night sweats, claudication, sob, focal weakness. No recurrent sinus or ear infections. No mucosal ulcers. No digital ulcerations. Elevation in ESR is non specific and can be related to many etiologies including immunoglobulins, anemia, BMI, smoking, malignancy, etc. We will complete further work up today including CBC, SPEP, immunoglobulins. I recommend ongoing screening for skin and cervical cancer. She will be due to mammogram screening next December. Recommendations: CBC, SPEP, immunoglobulins for elevated ESR Vitamin D and B12 for fatigue Offered counseling on what we understand to be the nature of fibromyalgia. That it is a real illness though the pathogenesis of it is uncertain, that the patient plays a central role in their own treatment, and that we know the disease in itself is not life-threatening. That stress and mood disorders can both underlie and exacerbate the illness. It is beneficial to regularly visit a PCP with or without the assistance of a counselor or psychiatrist and have any underlying psychiatric comorbidities appropriately treated. That regulation of sleep cycle is essential, including addressing sleep hygiene, possible sleep apnea, and substance abuse That evidence exists that exercise (especially low impact activity i.e. swimming, water aerobics, biking, fast walking), at least 30 minutes and 3 times weekly, has shown to help the symptoms of fibromyalgia and will decrease risk of other comorbidities. If aiming to use pharmacologic therapies for assistance in achieving the above, the most evidence exists for Amitriptyline (start at 10 mg QHS, titrated up to 50 mg QD), Duloxetine (start at 30 mg QD x1 week, titrate up to 60 mg QD), and Milnacipran (start at 12.5 mg QD, titrate up to 50 mg BID). Venlafaxine, Gabapentin, or Pregabalin can also be considered. Orders this visit: Office Visit on 02/17/23 CBC + DIFF COMP METABOLIC PANEL *Canceled* SED RATE WESTERGREN *Canceled* C-REACTIVE PROTEIN (CRP) *Canceled* LEONARD BY IFA SCREEN *Canceled* ANTI JASWANT ID *Canceled* VITAMIN D 25 HYDROXY VITAMIN B12 BLOOD PROTEIN ELECTROPHORESIS SERUM W/INTERP IMMUNOGLOBULINS YARI VICTOZA 3-ROME 0.6 mg/0.1 mL (18 mg/3 mL) metFORMIN (GLUCOPHAGE) 500 mg tablet meclizine (ANTIVERT) 25 mg tab busPIRone (BUSPAR) 10 mg tablet losartan (COZAAR) 50 mg tablet cyclobenzaprine (FLEXERIL) 10 mg tablet doxepin capsule 10 mg atorvastatin (LIPITOR) 10 mg tablet verapamil ER 180 mg 24 hr capsule levothyroxine (SYNTHROID) 150 mcg tablet aspirin 81 mg cap magnesium gluconate (MAG-G) 27 mg (500 mg) tab TURMERIC ORAL No follow-ups on file. CC: PCP: No primary care provider on file. No primary provider on file. Phone #: None I spent a total of 60 minutes on the date of the service which included preparing to see the patient, [id number] patient care, completing clinical documentation, obtaining and/or reviewing separately obtained history, performing a medically appropriate examination, and counseling and educating the patient/family/caregiver. Alberto Marcus MD Rheumatology Date: February 17, 2023 Time: 8:50 AM documented in this encounter [facility] Evaluation note Note Date & Type Note Facility Evaluation note Diagnosis Fibromyalgia- Primary Mylagia and myositis, unspecified Sedimentation rate elevation Elevated sedimentation rate Fatigue, unspecified type Vitamin D deficiency Unspecified vitamin D deficiency documented in this encounter [facility] History of Present illness Narrative Note Date & Type Note Facility History of Present illness Narrative Patient returns once again in follow-up of problems which appear to be, on original presentation, atypical chest pain and vertigo. She has been seen primary care 4 times a year for management of hypertension and control is good. She has seen neurology as well for vertiginous symptomatology. I proposed to her that because her symptomatology was basically noncardiac and she has appropriate intervention on behalf of her other healthcare providers that henceforth cardiology follow-up, on a regular basis, appears unnecessary and/or of little utility since there was never any finding of heart disease per se. She concurs. We suggested follow-up henceforth only as needed or in about 2 years and she is comfortable with that concept. She was encouraged to call if problems arise and she was educated regarding more typical cardiac symptoms to watch for and be aware of. We did advocate diet exercise and weight loss because she appears capable of doing it at her young age. -[facility] [address] DO Work Phone: Summary Purpose Family History No Family History Records FoundUnknown Family Member Name Dates Details Family history of diabetes m ellitus: Mother, Brother(V18.0, Z83.3) Status:Active Family history of hypertensi on: Mother, Father(V17.49, Z82.49) Status:Active Advance Directives No Advanced Directives Records FoundNo Advanced Directives Records FoundNo Advanced Directives Records FoundNo Advanced Directives Records Found Chief Complaint DENISHA VELASCO is being seen for an annual follow-up of. Additional Source Comments INFORMATION SOURCE (unrecogn ized section and content) DATE CREATED AUTHOR 06/30/2022 [facility] DATE CREATED AUTHOR AUTHOR'S ORGANIZ ATION 07/01/2022 [employer] DATE CREATED AUTHOR AUTHOR'S ORGANIZ ATION 07/08/2022 [facility] DATE CREATED AUTHOR AUTHOR'S ORGANIZ ATION 02/18/2023 [facility] Source Comments (unrecognize d section and content) In the event this informatio n is protected by the Federal Confidentiality of Alcohol and Drug Abuse Patient Records regulations: The Federal rules restrict any use of the information to criminally investigate or prosecute any alcohol or drug abuse patient.[facility] Reason for Visit (unrecogniz ed section and content) Reason Comments Consult FOR RECORDS PERTAINING TO PATIENTS WHO ARE OR HAVE BEEN ENROLLED IN A CHEMICAL DEPENDENCY/SUBSTANCEABUSE PROGRAM, SOME INFORMATION MAY BE OMITTED. This clinical summary was aggregated from multiple sources. Caution should be exercised in using it in the provision of clinical care. This summary normalizes information from multiple sources, and as a consequence, information in this document may materially change the coding, format and clinical context of patient data. In addition, data may be omitted in some cases. CLINICAL DECISIONS SHOULD BE BASED ON THE PRIMARY CLINICAL RECORDS. [facility] [employer] [facility]. provides no warranty or guarantee of the accuracy or completeness of information in this document.
[2023-04-30 11:17] LABS: Estimated Average Glucose 117 mg/dL; Glycohemoglobin A1C 5.7 % (4.5-6.2)
== END 2023-04-30 10:48 | disposition home or self-care (01) ==
LOC: LAB 10:48
PROVIDERS: PCP Nurse Practitioner; Visit Provider Nurse Practitioner
DX: E11.9 Type 2 diabetes mellitus without complications (principal)
CPT/HCPCS: 36415; 83036

== ENCOUNTER 2023-06-11 08:44 | Outpatient (OUT) | payer OTHER, SELFPAY ==
--- OUTSIDE RECORDS SUMMARY | 2023-06-05 09:51 | XMS_ITS | CCD ---
Author Name Unknown Address [address] [place] [address] Organization [facility] Team Providers Care Stone Carver Name Role Phone Katrin LIMON, Dr. Chandler Pryor Attending Unavailable Katrin LIMON, Dr. Chandler Pryor Referring Unavailable Aichholz, . Allison Ara Primary Care Unavailab le Aichholz, Allison Ara Unavailable Unavailable Unavailable AICHHOLZ, MACHINE INSTALLER ALLISON Consulting Unavailable AICHHOLZ, MACHINE INSTALLER ALLISON Attending Unavailable AICHHOLZ, MACHINE INSTALLER ALLISON Primary Care Unavailable AICHHOLZ, MACHINE INSTALLER ALLISON Admitting Unavailable AICHHOLZ, MACHINE INSTALLER ALLISON Consulting Unavailable AICHHOLZ, MACHINE INSTALLER ALLISON Attending Unavailable AICHHOLZ, MACHINE INSTALLER ALLISON Primary Care Unavailable AICHHOLZ, MACHINE INSTALLER ALLISON Admitting Unavailable AICHHOLZ, MACHINE INSTALLER ALLISON Consulting Unavailable AICHHOLZ, MACHINE INSTALLER ALLISON Attending Unavailable AICHHOLZ, MACHINE INSTALLER ALLISON Admitting Unavailable AICHHOLZ, MACHINE INSTALLER ALLISON Primary Care Unavailable FAWWAD, MEI H Admitting Unavailable AICHHOLZ, MACHINE INSTALLER ALLISON Primary Care Unavailable VERO WILSON Consulting Unavailable FAWWAD, MEI H Attending Unavailable FAWWAD, MEI H Consulting Unavailable AICHHOLZ, MACHINE INSTALLER ALLISON Consulting Unavailable AICHHOLZ, MACHINE INSTALLER ALLISON Attending Unavailable AICHHOLZ, MACHINE INSTALLER ALLISON Admitting Unavailable AICHHOLZ, MACHINE INSTALLER ALLISON Primary Care Unavailable DR ZINA GREGORY Consulting Unavailable JESSE HATCH Attending Unavailable JESSE HATCH Admitting Unavailable AICHHOLZ, MACHINE INSTALLER ALLISON Primary Care Unavailable JESSE HATCH Consulting Unavailable AICHHOLZ, MACHINE INSTALLER ALLISON Primary Care Unavailable JESSE HATCH Attending Unavailable JESSE HATCH Admitting Unavailable JESSE HATCH Consulting Unavailable Lali Patel Consulting Unavailable AICHHOLZ, MACHINE INSTALLER ALLISON Primary Care Unavailable ELLENBORO, DR VERO De Oliveira Consulting Unavailable PAY ., DR PONCE Attending Unavailable PAY ., DR PONCE Admitting Unavailable PAY ., DR PONCE Consulting Unavailable AICHHOLZ, MACHINE INSTALLER ALLISON Admitting Unavailable AICHHOLZ, MACHINE INSTALLER ALLISON Attending Unavailable AICHHOLZ, MACHINE INSTALLER ALLISON Primary Care Unavailable AICHHOLZ, MACHINE INSTALLER ALLISON Attending Unavailable AICHHOLZ, MACHINE INSTALLER ALLISON Admitting Unavailable AICHHOLZ, MACHINE INSTALLER ALLISON Primary Care Unavailable ELLENBORO, DR VERO De Oliveira Consulting Unavailable AICHHOLZ, MACHINE INSTALLER ALLISON Consulting Unavailable AICHHOLZ, MACHINE INSTALLER ALLISON Primary Care Unavailable ELLENBORO, DR VERO De Oliveira Consulting Unavailable MICHAELWWANaomi, H Attending Unavailable FAWWAD, MEI H Admitting Unavailable FAWWAD, MEI H Consulting Unavailable AICHHOLZ, MACHINE INSTALLER ALLISON Admitting Unavailable AICHHOLZ, MACHINE INSTALLER ALLISON Primary Care Unavailable AICHHOLZ, MACHINE INSTALLER ALLISON Consulting Unavailable AICHHOLZ, MACHINE INSTALLER ALLISON Attending Unavailable AICHHOLZ, MACHINE INSTALLER ALLISON Admitting Unavailable AICHHOLZ, MACHINE INSTALLER ALLISON Primary Care Unavailable AICHHOLZ, MACHINE INSTALLER ALLISON Consulting Unavailable AICHHOLZ, MACHINE INSTALLER ALLISON Attending Unavailable Unavailable Primary Care Provider Unavailabl ALBERTO Baxter Referring Unavaila ALBERTO Ray Attending Unavaila ble AICHHOLZ, ALLISON ARA Referring Unavailable AICHHOLZ, ALLISON Attending Unavailable Allergies Allergy Classification Reported Allergen(s) Allergy Type Date of Onset Reaction(s) Facility (3 sources) gabapentin; Translations: [gabapentin] Drug Allergy 3 Other: See Comments [facility] (2 sources) hydroCHLOROthiaz ney; Translations: [hydroCHLOROthia zide CAPS] Drug Allergy 3 Other: See Comments [facility] (1 source) gabapentin Drug Allergy [facility] (2 sources) hydroCHLOROthiaz ney; Translations: [HYDROCHLOROTHIA ZIDE] Drug Allergy 4 [facility] Medications Completed/Discontinued Medications Medication Drug Class(es) [...] Start: 04-03-2021 take 1 capsule by mo uth once daily Verapamil HCl ER 180 MG Oral Capsule Extended Release 24 Hour TAKE 1 CAPSULE Daily Quantity: 0 Refills: 0 Ordered: 29-Apr-2021 DO Start : 03-Apr-2021 Active Comment on above: Take 1 capsule by mo [facility] every afternoon. 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 Comment on above: Order Comment: Speci men Type: BLOOD SPECIMEN Ordering Facility: [facility] Address: [address] [place] [address] Result Comment: Clas sification of 25 [place] Vitamin D status: Deficiency/Insufficiency: < or = 30 ng/ml. Sufficiency/Optimal Levels: 31-80 ng/mL Toxicity: > 100 ng/mL. Test performed by chemiluminescent immunoassay. Performed By: #### 1 989-3 #### [facility] CLIA [id number] [address] [place] [address] [place] CBC W Auto Differential pane l (Bld)on 02-17-2023 Basophils (Bld) [#/Vol] 0.03 10*3/uL <0.11 k/uL [facility] Basophils/100 WBC (Bld) 0.3 % [facility] Differential cell count method Nom (Bld) Auto [facility] Eosinophils (Bld) [#/Vol] 0.12 10*3/uL <0.46 k/uL [facility] Eosinophils/100 WBC (Bld) 1.2 % [facility] Erythrocyte distribution width (RBC) [Ratio] 12.7 % 11.5 - 15.0 % [facility] Hematocrit (Bld) [Volume fraction] 44.5 % 36.0 - 46.0 % [facility] Hemoglobin (Bld) [Mass/Vol] 14.4 g/dL 11.5 - 15.5 g/dL [facility] Immature granulocytes (Bld) [#/Vol] 0.03 10*3/uL <0.10 k/uL [facility] Immature granulocytes/100 WBC (Bld) 0.3 % [facility] Lymphocytes (Bld) [#/Vol] 1.93 10*3/uL 1.00 - 4.00 k/uL [facility] Lymphocytes/100 WBC (Bld) 19.7 % [facility] MCH (RBC) [Entitic mass] 30.3 pg 26.0 - 34.0 pg [facility] MCHC (RBC) [Mass/Vol] 32.4 g/dL 30.5 - 36.0 g/dL [facility] MCV (RBC) [Entitic vol] 93.5 fL 80.0 - 100.0 fL [facility] Monocytes (Bld) [#/Vol] 0.78 10*3/uL <0.87 k/uL [facility] Monocytes/100 WBC (Bld) 7.9 % [facility] Neutrophils (Bld) [#/Vol] 6.93 10*3/uL 1.45 - 7.50 k/uL [facility] Neutrophils/100 WBC (Bld) 70.6 % [facility] Nucleated RBC (Bld) [#/Vol] <0.01 k/uL [facility] Nucleated RBC/100 WBC (Bld) [Ratio] 0.0 /100 WBC [facility] Platelet mean volume (Bld) [Entitic vol] 13.2 fL High 9.0 - 12.7 fL [facility] Platelets (Bld) [#/Vol] 245 10*3/uL 150 - 400 k/uL [facility] RBC (Bld) [#/Vol] 4.76 10*6/uL 3.90 - 5.2 0 m/uL [facility] WBC (Bld) [#/Vol] 9.82 10*3/uL 3.70 - 11. 00 k/uL [facility] Basophils (Bld) [#/Vol] 0.03 10*3/uL Normal <0.[address] [facility] Comment on above: Order Comment: Speci men Type: BLOOD SPECIMEN Ordering Facility: [facility] Address: [address] [place] [address] Performed By: #### 5 7021-8 #### [facility] CLIA [id number] [address] [place] [address] [place] Basophils/100 WBC (Bld) 0.3 % Normal [facility] Comment on above: Order Comment: Speci men Type: BLOOD SPECIMEN Ordering Facility: [facility] Address: [address] [place] [address] Performed By: #### 5 7021-8 #### [facility] CLIA [id number] [address] [place] [address] [place] Differential cell count method Nom (Bld) Auto Normal [facility] Comment on above: Order Comment: Speci men Type: BLOOD SPECIMEN Ordering Facility: [facility] Address: [address] [place] [address] Performed By: #### 5 7021-8 #### [facility] CLIA [id number] [address] [place] [address] [place] Eosinophils (Bld) [#/Vol] 0.12 10*3/uL Normal <0.[address] [facility] Comment on above: Order Comment: Speci men Type: BLOOD SPECIMEN Ordering Facility: [facility] Address: [address] [place] [address] Performed By: #### 5 7021-8 #### [facility] CLIA [id number] [address] [place] [address] [place] Eosinophils/100 WBC (Bld) 1.2 % Normal [facility] Comment on above: Order Comment: Speci men Type: BLOOD SPECIMEN Ordering Facility: [facility] Address: [address] [place] [address] Performed By: #### 5 7021-8 #### [facility] CLIA [id number] [address] [place] [address] [place] Erythrocyte distribution width (RBC) [Ratio] 12.7 % Normal 11.5-15.[address] [facility] Comment on above: Order Comment: Speci men Type: BLOOD SPECIMEN Ordering Facility: [facility] Address: [address] [place] [address] Performed By: #### 5 7021-8 #### [facility] CLIA [id number] [address] [place] [address] [place] Hematocrit (Bld) [Volume fraction] 44.5 % Normal 36.0-46.[address] [facility] Comment on above: Order Comment: Speci men Type: BLOOD SPECIMEN Ordering Facility: [facility] Address: [address] [place] [address] Performed By: #### 5 7021-8 #### [facility] CLIA [id number] [address] [place] [address] [place] Hemoglobin (Bld) [Mass/Vol] 14.4 g/dL Normal 11.5-15.[address] [facility] Comment on above: Order Comment: Speci men Type: BLOOD SPECIMEN Ordering Facility: [facility] Address: [address] [place] [address] Performed By: #### 5 7021-8 #### [facility] CLIA [id number] [address] [place] [address] [place] Immature granulocytes (Bld) [#/Vol] 0.03 10*3/uL Normal <0.[address] [facility] Comment on above: Order Comment: Speci men Type: BLOOD SPECIMEN Ordering Facility: [facility] Address: [address] [place] [address] Performed By: #### 5 7021-8 #### [facility] CLIA [id number] [address] [place] [address] [place] Immature granulocytes/100 WBC (Bld) 0.3 % Normal [facility] Comment on above: Order Comment: Speci men Type: BLOOD SPECIMEN Ordering Facility: [facility] Address: [address] [place] [address] Performed By: #### 5 7021-8 #### [facility] CLIA [id number] [address] [place] [address] [place] Lymphocytes (Bld) [#/Vol] 1.93 10*3/uL Normal 1.00-4.[address] [facility] Comment on above: Order Comment: Speci men Type: BLOOD SPECIMEN Ordering Facility: [facility] Address: [address] [place] [address] Performed By: #### 5 7021-8 #### [facility] CLIA [id number] [address] [place] [address] [place] Lymphocytes/100 WBC (Bld) 19.7 % Normal [facility] Comment on above: Order Comment: Speci men Type: BLOOD SPECIMEN Ordering Facility: [facility] Address: [address] [place] [address] Performed By: #### 5 7021-8 #### [facility] CLIA [id number] [address] [place] [address] [place] MCH (RBC) [Entitic mass] 30.3 pg Normal 26.0-34.[address] [facility] Comment on above: Order Comment: Speci men Type: BLOOD SPECIMEN Ordering Facility: [facility] Address: [address] [place] [address] Performed By: #### 5 7021-8 #### [facility] CLIA [id number] [address] [place] [address] [place] MCHC (RBC) [Mass/Vol] 32.4 g/dL Normal 30.5-36.[address] [facility] Comment on above: Order Comment: Speci men Type: BLOOD SPECIMEN Ordering Facility: [facility] Address: [address] [place] [address] Performed By: #### 5 7021-8 #### [facility] CLIA [id number] [address] [place] [address] [place] MCV (RBC) [Entitic vol] 93.5 fL Normal 80.0-100.[address] [facility] Comment on above: Order Comment: Speci men Type: BLOOD SPECIMEN Ordering Facility: [facility] Address: [address] [place] [address] Performed By: #### 5 7021-8 #### [facility] CLIA [id number] [address] [place] [address] [place] Monocytes (Bld) [#/Vol] 0.78 10*3/uL Normal <0.[address] [facility] Comment on above: Order Comment: Speci men Type: BLOOD SPECIMEN Ordering Facility: [facility] Address: [address] [place] [address] Performed By: #### 5 7021-8 #### [facility] CLIA [id number] [address] [place] [address] [place] Monocytes/100 WBC (Bld) 7.9 % Normal [facility] Comment on above: Order Comment: Speci men Type: BLOOD SPECIMEN Ordering Facility: [facility] Address: [address] [place] [address] Performed By: #### 5 7021-8 #### [facility] CLIA [id number] [address] [place] [address] [place] Neutrophils (Bld) [#/Vol] 6.93 10*3/uL Normal 1.45-7.[address] [facility] Comment on above: Order Comment: Speci men Type: BLOOD SPECIMEN Ordering Facility: [facility] Address: [address] [place] [address] Performed By: #### 5 7021-8 #### [facility] CLIA [id number] [address] [place] [address] [place] Neutrophils/100 WBC (Bld) 70.6 % Normal [facility] Comment on above: Order Comment: Speci men Type: BLOOD SPECIMEN Ordering Facility: [facility] Address: [address] [place] [address] Performed By: #### 5 7021-8 #### [facility] CLIA [id number] [address] [place] [address] [place] Nucleated RBC (Bld) [#/Vol] 10*3/uL Normal <0.[address] [facility] Comment on above: Order Comment: Speci men Type: BLOOD SPECIMEN Ordering Facility: [facility] Address: [address] [place] [address] Performed By: #### 5 7021-8 #### [facility] CLIA [id number] [address] [place] [address] [place] Nucleated RBC/100 WBC (Bld) [Ratio] 0.0 /100 WBC Normal [facility] Comment on above: Order Comment: Speci men Type: BLOOD SPECIMEN Ordering Facility: [facility] Address: [address] [place] [address] Performed By: #### 5 7021-8 #### [facility] CLIA [id number] [address] [place] [address] [place] Platelet mean volume (Bld) [Entitic vol] 13.2 fL High 9.0-12.[address] [facility] Comment on above: Order Comment: Speci men Type: BLOOD SPECIMEN Ordering Facility: [facility] Address: [address] [place] [address] Performed By: #### 5 7021-8 #### [facility] CLIA [id number] [address] [place] [address] [place] Platelets (Bld) [#/Vol] 245 10*3/uL Normal 150-[address] [facility] Comment on above: Order Comment: Speci men Type: BLOOD SPECIMEN Ordering Facility: [facility] Address: [address] [place] [address] Result Comment: Resu lts checked and verified.No clot detected. Performed By: #### 5 7021-8 #### [facility] CLIA [id number] [address] [place] [address] [place] RBC (Bld) [#/Vol] 4.76 10*6/uL Normal 3.90-5.20 [facility] Comment on above: Order Comment: Speci men Type: BLOOD SPECIMEN Ordering Facility: [facility] Address: [address] [place] [address] Performed By: #### 5 7021-8 #### [facility] CLIA [id number] [address] [place] [address] [place] WBC (Bld) [#/Vol] 9.82 10*3/uL Normal 3.70-11.00 [facility] Comment on above: Order Comment: Speci men Type: BLOOD SPECIMEN Ordering Facility: [facility] Address: [address] [place] [address] Performed By: #### 5 7021-8 #### [facility] CLIA [id number] [address] [place] [address] [place] CNOVon 02-17-2023 CNOV Office Visit (DORIE ) DENISHA VELASCO ([id number]) 1985 F Date Time Provider Department 02/17/23 9:00 AM ALBERTO MARCUS During your visit today, we recorded the following information about you: Pulse Blood pressure Weight 96/minute 116/82 126.6 kg Alberto Marcus MD 02/17/2023 10:02 AM Signed [facility] Date of Service: 02/17/2023 Patient: Denisha Velasco Medical Record: [id number] Last Rheumatology visit: None at [facility] History of Present Illness Denisha Velasco is [...] other than (more content not included)... Normal [facility] VITAMIN D 25 HYDROXYon 02-17 25-hydroxyvitamin D3 [Mass/Vol] 14.6 ng/mL Low 31.0 - 80.0 ng/mL [facility] Vit B12 SerPl-mCncon 023 Cobalamin (Vitamin B12) [Mass/Vol] 347 pg/mL Normal 232-[address] [facility] Comment on above: Order Comment: Speci men Type: BLOOD SPECIMEN Ordering Facility: [facility] Address: [address] [place] [address] Performed By: #### 2 132-9 #### [facility] CLIA [id number] [facility] [place] [address] [place] SARS-CoV2 IgMon 07-07-2022 Comment Notes Normal [facility] Comment on above: Result Comment: Nega tive results to antibodies against SARS-CoV-2 are generally indicative of non-exposure to virus and lack of longevity of antibody response. Performed By: #### C VDABM #### [facility] [address] [place] [address] Dr. Karey Ordñoez Disclaimer Notes Normal [facility] Comment on above: Result Comment: This is a lab developed test. This test has been validated in accordance with [place] Department of Health guidelines and FDA guidance document [...] due to past or present infection with rjl-KXSP-YhN-2 coronavirus strains, such as coronavirus HKU1, NL63, OC43, or 229E. Performed By: #### C VDABM #### [facility] [address] [place] [address] Dr. Karey Ordoñez Electronically Signed By Comment [facility] Comment on above: Result Comment: Fernando Scales Performed By: #### C VDABM #### [facility] [address] [place] [address] Dr. Karey Ordoñez Methodology Comment [facility] Comment on above: Result Comment: Chem iluminescence Performed By: #### C VDABM #### [facility] [address] [place] [address] Dr. Karey Ordoñez References Notes [facility] Comment on above: Result Comment: Sheldon Godinez, [...] application of serological tests in clinical practice. 10.1101/[id number]. Performed By: #### C VDABM #### [facility] [address] [place] [address] Dr. Karey Ordoñez Result Negative Normal [facility] Comment on above: Performed By: #### C VDABM #### [facility] [address] [place] [address] Dr. Karey Ordoñez Value 0.03 COI Normal [facility] Comment on above: Result Comment: <0.8 : Negative 0.8-<1.0: Indeterminate >=1.0: Positive Performed By: #### C VDABM #### [facility] [address] [place] [address] Dr. Karey Ordoñez SARS-CoV2 IgGon 07-04-2022 SARS-CoV-2 (COVID-19) IgG IA.rapid Ql (S/P/Bld) >800.0 Normal Neg <13.0 [facility] Comment on above: Performed By: #### C VDIGG #### [facility] [address] [place] [address] Dr. Karey Ordoñez SARS-CoV-2 (COVID-19) RNA RUBY+probe Ql (Unsp spec) Positive Normal [facility] Comment on above: Result Comment: Anti bodies against the SARS-CoV-2 spike protein, including the receptor binding domain (RBD) were detected. It is not yet known what level of antibody to SARS-CoV-2 spike protein correlates to immunity against developing symptomatic SARS-CoV-2 disease. This assay was performed using [employer] L[employer]ison(R) SARS-CoV-2 Trimeric S IgG assay. Performed By: #### C VDIGG #### [facility] [address] [place] [address] Dr. Karey Ordoñez Office Visit (Cardiology)on 06-30-2022 Follow-up visit Diagnoses/Problems Assessed Benign essential hypertension (401.1) (I10) Vertigo (780.4) (R42) Morbid obesity with BMI of 45.0-49.9, adult (278.01,V85.42) (E66.01,Z68.42) Never smoker Orders Morbid obesity with BMI of 45.0-49.9, adult Healthy Weight Tips; Status:Complete - Retrospective Authorization; Done: [id number] Some eating tips that can help you lose weight.; Status:Complete - Retrospective Authorization; Done: [id number] SocHx: Never smoker Tobacco Use Screening; Status:Complete; Done: [id number] Patient Instructions Please bring all medicines, vitamins, [...] negative for complaint. Vitals Vital Signs Recorded: [id number] 09:45AM Heart Rate74, R Radial Cwtfnmeq520, RUE, Sitting Yuhaygoui62, RUE, Sitting Height5 ft 3 in Cpxkwq381 lb BMI Quknnzacyh17.42 kg/m2 BSA Calculated2.23 Tobacco Useb) No PHQ-2 [...] . Abdomen: (more content not included)... Normal [employer] Tobacco Screening.on 023 Adult depression screening assessment No [facility] 250 DO Work Phone: Fall risk assessment a) No falls within the last year [facility] 250 DO Work Phone: Tobacco use status [facility] b) No [facility] 250 DO Work Phone: FREE T4on 05-12-2022 Free T4 [Mass/Vol] 1.11 ng/dL Normal 0.76-1.46 [facility] Comment on above: Performed By: #### F T4 #### [facility] [address] [place] [address] Dr. Karey Ordoñez GLYCOHEMOGLOBIN A1Con 2022 ADA RECOMMENDATION SEE BELOW Normal [facility] Comment on above: Result Comment: ADA RECOMMENDED LIMIT 4.0 - 6.0 ADA THERAPEUTIC TARGET < 7.0 ACTION SUGGESTED > 7.0 Performed By: #### F T4 #### [facility] [address] [place] [address] Dr. Karey Ordoñez Glucose [Mass/Vol] 114 mg/dL Normal [facility] Comment on above: Performed By: #### F T4 #### [facility] [address] [place] [address] [address] Karey Ordoñez HbA1c (Bld) [Mass fraction] 5.6 % Normal 4.5-6.2 [facility] Comment on above: Performed By: #### F T4 #### [facility] [address] [place] [address] [address] Karey Ordoñez PROF CHEM 8 (BAS METB)on Anion gap [Moles/Vol] 13.5 mmol/L Normal [facility] Comment on above: Performed By: #### T SH, BMP #### [facility] [address] [place] [address] Dr. Karey Ordoñez Calcium [Mass/Vol] 9.1 mg/dL Normal 8.5-10.[address] [facility] Comment on above: Performed By: #### T SH, BMP #### [facility] [address] [address] [address] Karey Ordoñez Chloride [Moles/Vol] 103 mmol/L Normal 98-107 [facility] Comment on above: Performed By: #### T SH, BMP #### [facility] [address] [place] [address] Dr. Karey Ordoñez CO2 [Moles/Vol] 26.7 mmol/L Normal 21.0-32.0 [facility] Comment on above: Performed By: #### T SH, BMP #### [facility] [address] [place] [address] Dr. Karey Ordoñez Creatinine [Mass/Vol] 0.79 mg/dL Normal 0.55-1.02 [facility] Comment on above: Performed By: #### T SH, BMP #### [facility] [address] [place] [address] Dr. Karey Ordoñez EGFR-AF SALVADOREAN >60 Normal >=60 [facility] Comment on above: Performed By: #### T SH, BMP #### [facility] [address] [place] [address] Dr. Karey Ordoñez EGFR-NON AF SALVADOREAN >60 Normal >=60 [facility] Comment on above: Performed By: #### T SH, BMP #### [facility] [address] [place] [address] Dr. Karey Ordoñez Glucose [Mass/Vol] 94 mg/dL Normal 74-[address] [facility] Comment on above: Performed By: #### T SH, BMP #### [facility] [address] [place] [address] Dr. Karey Ordoñez Potassium [Moles/Vol] 4.2 mmol/L Normal 3.5-5.1 [facility] Comment on above: Performed By: #### T SH, BMP #### [facility] [address] [place] [address] Dr. Karey Ordoñez Sodium [Moles/Vol] 139 mmol/L Normal 136-[address] [facility] Comment on above: Performed By: #### T SH, BMP #### [facility] [address] [place] [address] Dr. Karey Ordoñez Urea nitrogen [Mass/Vol] 12.0 mg/dL Normal 7.0-18.0 [facility] Comment on above: Performed By: #### T SH, BMP #### [facility] [address] [address] [address] Karey Ordoñez Urea nitrogen/Creatinine [Mass ratio] 15.2 mg/mg Normal [facility] Comment on above: Performed By: #### T SH, BMP #### [facility] [address] [address] [address] Karey Ordoñez TSHon 05-12-2022 TSH 1.098 uIU/mL Normal 0.358-3.740 [facility] Comment on above: Performed By: #### T SH, BMP #### [facility] [address] [address] [address] Karey Ordoñez FREE T3on 02-06-2022 FREE T3 1.79 pg/mlL Critically low 2.18-3.98 [facility] Comment on above: Performed By: #### F T3, TSH #### [facility] [address] [place] [address] Dr. Karey Ordoñez FREE T4on 02-06-2022 Free T4 [Mass/Vol] 1.12 ng/dL Normal 0.76-1.46 [facility] Comment on above: Performed By: #### F T4 #### [facility] [address] [place] [address] Dr. Karey Ordoñez TSHon 02-06-2022 TSH 2.571 uIU/mL Normal 0.358-3.740 [facility] Comment on above: Performed By: #### F T3, TSH #### [facility] [address] [place] [address] Dr. Kraey Ordoñez MRI BRAIN WO CONon MRI BRAIN [...] by: VERO ATKINS Date: 2022-01-22 13:49 Normal [facility] CT CSPINE WO CONon 2 CT CSPINE WO CON EXAMINATION: CT CSPI [...] by: LALI PATEL Date: 2022-01-18 10:22 Normal [facility] US CAROTID ART BILon 022 US CAROTID [...] ZINA GREGORY Date: 2022-01-17 18:33 Normal [facility] CT HEAD WO CONon 01-15-2022 CT HEAD [...] VERO ATKINS Date: 2022-01-15 11:07 Normal [facility] MRI KNEE RT WO CONon 022 MRI [...] by: VERO ATKINS Date: 2021-12-18 15:05 Normal [facility] XR KNEE RT 3Von 12-10-2021 XR [...] by: VERO WILSON Date: 2021-12-10 06:40 Normal [facility] LIVER PROFILEon 10-29-2021 Albumin [Mass/Vol] 3.7 g/dL Normal 3.4-5.0 [facility] Comment on above: Performed By: #### F T4 #### [facility] [address] [place] [address] Dr. Karey Ordoñez Albumin/Globulin [Mass ratio] 0.9 {ratio} Normal [facility] Comment on above: Performed By: #### F T4 #### [facility] [address] [place] [address] Dr. Karey Ordoñez ALP [Catalytic activity/Vol] 111 U/L Normal 46-116 [facility] Comment on above: Performed By: #### F T4 #### [facility] [address] [place] [address] Dr. Karey Ordoñez ALT [Catalytic activity/Vol] 22 U/L Normal 14-59 [facility] Comment on above: Performed By: #### F T4 #### [facility] [address] [place] [address] Dr. Karey Ordoñez AST [Catalytic activity/Vol] 12 U/L Critically low 15-37 [facility] Comment on above: Performed By: #### F T4 #### [facility] [address] [place] [address] Dr. Karey Ordoñez BILI, CONJUGATED 0.1 mg/dL Normal 0.0-0.2 [facility] Comment on above: Performed By: #### F T4 #### [facility] [address] [place] [address] Dr. Karey Ordoñez Bilirubin [Mass/Vol] 0.5 mg/dL Normal 0.2-1.0 [facility] Comment on above: Performed By: #### F T4 #### [facility] [address] [place] [address] Dr. Karey Ordoñez Globulin (S) [Mass/Vol] 4.1 g/dL Normal [facility] Comment on above: Performed By: #### F T4 #### [facility] [address] [place] [address] Dr. Karey Ordoñez Protein [Mass/Vol] 7.8 g/dL Normal 6.4-8.2 [facility] Comment on above: Performed By: #### F T4 #### [facility] [address] [place] [address] Dr. Karey Ordoñez INSULINon 10-02-2021 Insulin 10.5 uIU/mL Normal 2.6-24.9 [facility] Comment on above: Performed By: #### I NSULIN #### [facility] [address] [place] [address] Dr. Karey Ordoñez CBC AUTO DIFFon 10-01-2021 BASO # 0.0 103/ul Normal 0.0-0.1 [facility] Comment on above: Performed By: #### F T4 #### [facility] [address] [place] [address] Dr. Karey Ordoñez Basophils/100 WBC (Bld) 0.4 % Normal 0.2-2.0 [facility] Comment on above: Performed By: #### F T4 #### [facility] [address] [place] [address] Dr. Karey Ordoñez EO # 0.1 103/ul Normal 0.0-0.7 [facility] Comment on above: Performed By: #### F T4 #### [facility] [address] [place] [address] Dr. Karey Ordoñez Eosinophils/100 WBC (Bld) 1.1 % Normal 0.9-7.0 [facility] Comment on above: Performed By: #### F T4 #### [facility] [address] [place] [address] Dr. Karey Ordoñez Erythrocyte distribution width (RBC) [Ratio] 12.9 % Normal 11.0-15.0 [facility] Comment on above: Performed By: #### F T4 #### [facility] [address] [place] [address] Dr. Karey Ordoñez Hematocrit (Bld) [Volume fraction] 41.5 % Normal 36.0-48.0 [facility] Comment on above: Performed By: #### F T4 #### [facility] [address] [place] [address] Dr. Karey Ordoñez Hemoglobin (Bld) [Mass/Vol] 13.0 g/dL Normal 12.0-16.0 [facility] Comment on above: Performed By: #### F T4 #### [facility] [address] [place] [address] Dr. Karey Ordoñez IG # 0.04 10e3/ul Critically high 0.00-0.03 [facility] Comment on above: Performed By: #### F T4 #### [facility] [address] [place] [address] Dr. Karey Ordoñez IG % 0.5 % Normal 0.0-0.5 [facility] Comment on above: Performed By: #### F T4 #### [facility] [address] [place] [address] Dr. Karey Ordoñez LYMPH # 1.9 103/ul Normal 1.2-3.8 [facility] Comment on above: Performed By: #### F T4 #### [facility] [address] [place] [address] Dr. Karey Ordoñez Lymphocytes/100 WBC (Bld) 22.7 % Normal 20.5-60.0 [facility] Comment on above: Performed By: #### F T4 #### [facility] [address] [place] [address] Dr. Karey Ordoñez MANUAL DIFF REQ NO Normal [facility] Comment on above: Performed By: #### F T4 #### [facility] [address] [place] [address] Dr. Karey Ordoñez MCH (RBC) [Entitic mass] 28.9 pg Normal 26.7-34.0 [facility] Comment on above: Performed By: #### F T4 #### [facility] [address] [place] [address] Dr. Karey Ordoñez MCHC (RBC) [Mass/Vol] 31.3 g/dL Normal 29.9-35.2 [facility] Comment on above: Performed By: #### F T4 #### [facility] [address] [place] [address] Dr. Karey Ordoñez MCV (RBC) [Entitic vol] 92.2 fL Normal 81.0-99.0 [facility] Comment on above: Performed By: #### F T4 #### [facility] [address] [place] [address] Dr. Karey Ordoñez MONO # 0.6 103/ul Normal 0.3-0.8 [facility] Comment on above: Performed By: #### F T4 #### [facility] [address] [place] [address] Dr. Karey Ordoñez Monocytes/100 WBC (Bld) 6.8 % Normal 1.7-12.0 [facility] Comment on above: Performed By: #### F T4 #### [facility] [address] [place] [address] Dr. Karey Ordoñez NEUT # 5.8 103/ul Normal 1.4-6.5 [facility] Comment on above: Performed By: #### F T4 #### [facility] [address] [place] [address] Dr. Karey Ordoñez Neutrophils/100 WBC (Bld) 68.5 % Normal 43.0-75.0 [facility] Comment on above: Performed By: #### F T4 #### [facility] [address] [place] [address] Dr. Karey Ordoñez Platelet mean volume (Bld) [Entitic vol] 12.8 fL Normal 9.5-13.5 [facility] Comment on above: Performed By: #### F T4 #### [facility] [address] [place] [address] Dr. Karey Ordoñez PLT 231 103/ul Normal 150-450 [facility] Comment on above: Performed By: #### F T4 #### [facility] [address] [place] [address] Dr. Karey Ordoñez RBC 4.50 106/ul Normal 4.20-5.40 [facility] Comment on above: Performed By: #### F T4 #### [facility] [address] [place] [address] Dr. Karey Ordoñez WBC 8.5 103/ul Normal 4.0-11.0 [facility] Comment on above: Performed By: #### F T4 #### [facility] [address] [place] [address] Dr. Karey Ordoñez FREE T4on 10-01-2021 Free T4 [Mass/Vol] 1.27 ng/dL Normal 0.76-1.[address] [facility] Comment on above: Performed By: #### F T4 #### [facility] [address] [place] [address] Dr. Karey Ordoñez GLYCOHEMOGLOBIN A1Con 2021 ADA RECOMMENDATION SEE BELOW Normal [facility] Comment on above: Result Comment: ADA RECOMMENDED LIMIT 4.0 - 6.0 ADA THERAPEUTIC TARGET < 7.0 ACTION SUGGESTED > 7.0 Performed By: #### A 1C #### [facility] [address] [place] [address] Dr. Karey Ordoñez Glucose [Mass/Vol] 123 mg/dL Normal [facility] Comment on above: Performed By: #### A 1C #### [facility] [address] [place] [address] Dr. Karey Ordoñez HbA1c (Bld) [Mass fraction] 5.9 % Normal 4.5-6.2 [facility] Comment on above: Performed By: #### A 1C #### [facility] [address] [address] [address] Karey Ordoñez LIPID PROFILEon 10-01-2021 CHOL-HDL RATIO NORM SEE BELOW Normal [facility] Comment on above: Result Comment: 3.3 - 4.4 LOW RISK 4.4 - 7.1 AVERAGE RISK 7.1 - 11.0 MODERATE RISK >11.0 HIGH RISK Performed By: #### F T4 #### [facility] [address] [address] [address] Karey Ordoñez Cholesterol [Mass/Vol] 182 mg/dL Normal <=200 [facility] Comment on above: Performed By: #### F T4 #### [facility] [address] [address] [address] Karey Ordoñez Cholesterol in HDL [Mass/Vol] 52 mg/dL Normal 40-60 [facility] Comment on above: Performed By: #### F T4 #### [facility] [address] [address] [address] Karey Ordoñez Cholesterol in LDL [Mass/Vol] 115.8 mg/dL Normal [facility] Comment on above: Performed By: #### F T4 #### [facility] [address] [address] [address] Karey Ordoñez Cholesterol.total/Ch olesterol in HDL [Mass ratio] 3.5 {ratio} Normal [facility] Comment on above: Performed By: #### F T4 #### [facility] [address] [address] [address] Karey Ordoñez HDL NORMAL > or = 60 mg/dl - LO W CARDIOVASCULAR RISK <40 mg/dl - HIGH CARDIOVASCULAR RISK Normal [facility] Comment on above: Performed By: #### F T4 #### [facility] [address] [address] [address] Karey Ordoñez LDL CALC NORMAL SEE BELOW Normal [facility] Comment on above: Result Comment: <100 mg/dl OPTIMAL 100 - 129 mg/dl NEAR OR ABOVE OPTIMAL 130 - 159 mg/dl BORDERLINE HIGH 160 - 189 mg/dl HIGH >190 mg/dl VERY HIGH Performed By: #### F T4 #### [facility] [address] [address] [address] Karey Ordoñez Triglyceride [Mass/Vol] 71 mg/dL Normal <=150 [facility] Comment on above: Performed By: #### F T4 #### [facility] [address] [place] [address] Dr. Karey Ordoñez VLDL CALC 14.2 mg/dL Normal [facility] Comment on above: Performed By: #### F T4 #### [facility] [address] [place] [address] Dr. Karey Ordoñez PROF 14(COMP METB)on 022 Albumin [Mass/Vol] 3.9 g/dL Normal 3.4-5.0 [facility] Comment on above: Performed By: #### F T4 #### [facility] [address] [place] [address] Dr. Karey Ordoñez Albumin/Globulin [Mass ratio] 0.9 {ratio} Normal [facility] Comment on above: Performed By: #### F T4 #### [facility] [address] [place] [address] Dr. Karey Ordoñez ALP [Catalytic activity/Vol] 117 U/L Critically high 46-116 [facility] Comment on above: Performed By: #### F T4 #### [facility] [address] [place] [address] Dr. Karey Ordoñez ALT [Catalytic activity/Vol] 25 U/L Normal 14-59 [facility] Comment on above: Performed By: #### F T4 #### [facility] [address] [place] [address] Dr. Karey Ordoñez Anion gap [Moles/Vol] 14.1 mmol/L Normal [facility] Comment on above: Performed By: #### F T4 #### [facility] [address] [place] [address] Dr. Karey Ordoñez AST [Catalytic activity/Vol] 14 U/L Critically low 15-37 [facility] Comment on above: Performed By: #### F T4 #### [facility] [address] [place] [address] Dr. Karey Ordoñez Bilirubin [Mass/Vol] 0.5 mg/dL Normal 0.2-1.0 [facility] Comment on above: Performed By: #### F T4 #### [facility] [address] [address] [address] Karey Ordoñez Calcium [Mass/Vol] 9.1 mg/dL Normal 8.5-10.1 [facility] Comment on above: Performed By: #### F T4 #### [facility] [address] [address] [address] Karey Ordoñez Chloride [Moles/Vol] 102 mmol/L Normal 98-107 [facility] Comment on above: Performed By: #### F T4 #### [facility] [address] [address] [address] Karey Ordoñez CO2 [Moles/Vol] 27.7 mmol/L Normal 21.0-32.0 [facility] Comment on above: Performed By: #### F T4 #### [facility] [address] [place] [address] Dr. Karey Ordoñez Creatinine [Mass/Vol] 0.76 mg/dL Normal 0.55-1.02 [facility] Comment on above: Performed By: #### F T4 #### [facility] [address] [place] [address] Dr. Karey Ordoñez EGFR-AF SALVADOREAN >60 Normal >=60 [facility] Comment on above: Performed By: #### F T4 #### [facility] [address] [place] [address] Dr. Karey Ordoñez EGFR-NON AF SALVADOREAN >60 Normal >=60 [facility] Comment on above: Performed By: #### F T4 #### [facility] [address] [place] [address] Dr. Karey Ordoñez Globulin (S) [Mass/Vol] 4.5 g/dL Normal [facility] Comment on above: Performed By: #### F T4 #### [facility] [address] [place] [address] Dr. Karey Ordoñez Glucose [Mass/Vol] 101 mg/dL Normal 74-[address] [facility] Comment on above: Performed By: #### F T4 #### [facility] [address] [place], [place] [address] Dr. Karey Ordoñez Potassium [Moles/Vol] 3.8 mmol/L Normal 3.5-5.1 [facility] Comment on above: Performed By: #### F T4 #### [facility] [address] [place], [place] [address] Dr. Karey Ordoñez Protein [Mass/Vol] 8.4 g/dL Critically high 6.4-8.2 T [facility] Comment on above: Performed By: #### F T4 #### [facility] [address] [address] [address] Karey Ordoñez Sodium [Moles/Vol] 140 mmol/L Normal 136-145 [facility] Comment on above: Performed By: #### F T4 #### [facility] [address] [place] [address] Dr. Karey Ordoñez Urea nitrogen [Mass/Vol] 10.0 mg/dL Normal 7.0-18.0 [facility] Comment on above: Performed By: #### F T4 #### [facility] [address] [address] [address] Karey Ordoñez Urea nitrogen/Creatinine [Mass ratio] 13.2 mg/mg Normal [facility] Comment on above: Performed By: #### F T4 #### [facility] [address] [place] [address] Dr. Karey Ordoñez TSHon 10-01-2021 TSH 2.445 uIU/mL Normal 0.358-3.740 [facility] Comment on above: Performed By: #### F T4 #### [facility] [address] [place] [address] Dr. Karey Ordoñez TSH RANGE SEE BELOW Normal [facility] Comment on above: Result Comment: <0.3 4 UIU/ml HYPERTHYROID 0.34-5.60 UIU/ml EUTHYROID >5.60 UIU/ml HYPOTHYROID Performed By: #### F T4 #### [facility] [address] [place], [place] [id number] Dr. Karey Ordoñez Vital Signs Date Time Vital Sign Value Performing Clinician Faci lity 02-17-2023 08:48-0400 Body weight 126.55 kg Alberto Marcus MD Work Phone: [facility] 02-17-2023 08:48-0400 Diastolic blood pressure 82 mm[Hg] Alberto Marcus MD Work Phone: [facility] 02-17-2023 08:48-0400 Heart rate 96 /min Alberto Marcus MD Work Phone: [facility] 02-17-2023 08:48-0400 SaO2% (BldA) [Mass fraction] 98 % Alberto Marcus MD Work Phone: [facility] 02-17-2023 08:48-0400 Systolic blood pressure 116 mm[Hg] Alberto Marcus MD Work Phone: [facility] 06-30-2022 09:45-0500 Body height 160.02 cm Allison Mendez Work Phone: [facility] [employer] [address] DO Work Phone: 06-30-2022 09:45-0500 Body mass index (BMI) [Ratio] 49.42 kg/m2 Allison Mendez Work Phone: [facility] [employer] [employer] DO Work Phone: 06-30-2022 09:45-0500 Body surface area Derived from formula 2.23 m2 Allison Mendez Work Phone: [facility] [facility] DO Work Phone: 06-30-2022 09:45-0500 Body weight 126.55 kg Allison Mendez Work Phone: [facility] DO Work Phone: 06-30-2022 09:45-0500 Diastolic blood pressure 80 mm[Hg] Allison Mendez Work Phone: [facility] [facility] DO Work Phone: 06-30-2022 09:45-0500 Heart rate 74 /min Allison Bullock Heidimichellesrinivasa Work Phone: [facility] [address] DO Work Phone: 06-30-2022 09:45-0500 Systolic blood pressure 128 mm[Hg] Allison Bullock Vanessa Work Phone: [facility] [facility] DO Work Phone: Encounters Encounter Date Encounter Type Care Provider Facility Start: 04-30-2023 End: 04-30-2023 ambulatory ALLISON MENDEZ Not Available Start: 02-17-2023 End: 02-18-2023 ambulatory ALBERTO MARCUS Facility:[facility] Start: 02-17-2023 End: 02-17-2023 Office outpatient new 60 minutes Alberto Marcus MD Work Phone: Rheumatology Comment on above: Fibromyalgia (Primar y Dx); Sedimentation rate elevation; Fatigue, unspecified type; Vitamin D deficiency Start: 07-07-2022 Encounter for antibo dy response examination LAURO MENDEZ [facility] Start: 07-03-2022 End: 07-04-2022 ambulatory LAURO ALLISON VANESSA Facility:[facility] Start: 07-03-2022 End: 07-04-2022 Encounter for antibody response examination LAURO ANDREWS VANESSA Facility:[facility] Start: 06-30-2022 Office outpatient vi sit 15 minutes Allison Bullock Heidimichellesrinivasa Work Phone: [facility] DO Work Phone: Start: 06-30-[address] 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 ALLISON AICHHOLZ Facility:[facility] Start: 12-18-2021 End: 12-19-2021 ambulatory LAURO ALLISON AICHHOLZ Facility:[facility] Start: 12-09-2021 End: 12-10-2021 ambulatory SHAIKH Michelle LARA Facility:[facility] Start: 10-29-2021 End: 10-30-2021 ambulatory LAURO ALLISON AICHHOLZ Facility:[facility] Start: 10-01-2021 End: 10-02-2021 ambulatory 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 Colonoscopy Allison Ara Aichholz Work Phone: Plan of Treatment Date Care Activity Detail Author Start: 04-11-2024 FUV, Provider: Chandler Wilkes, Status: Pen, Time: 11:00 AM [facility]UV, Provider: Chandler Wilkes, Status: Pen, Time: 11:00 AM [facility] [facility] DO Work Phone: Start: 02-17-2023 End: 04-19-2023 Cobalamin (Vitamin B12) [Mass/volume] in Serum or Plasma [facility] Work Phone: Comment on above: Expected: 02/17/2023 , Expires: 04/19/2023 Start: 02-17-2023 End: 04-19-2023 IMMUNOGLOBULINS YARI IMMUNOGLOBULINS YARI Lab Routine Sedimentation rate elevation Expected: 02/17/2023, Expires: 04/19/2023 [facility] Work Phone: Comment on above: Expected: 02/17/2023 , Expires: 04/19/2023 Start: 02-17-2023 End: 04-19-2023 PROTEIN ELECTROPHORESIS SERUM W/INTERP PROTEIN ELECTROPHORESIS SERUM W/INTERP Lab Routine Sedimentation rate elevation Expected: 02/17/2023, Expires: 04/19/2023 [facility] Work Phone: Comment on above: Expected: 02/17/2023 , Expires: 04/19/2023 Start: 01-09-2023 Covid-19 Vaccine () Covid-19 Vaccine () [facility] Start: 01-09-2023 Influenza vaccination Influenza Vacc ine (#1) [facility] Start: 05-11-2022 Depression Assessment Depression Ass essment [facility] Start: 12-25-2013 HPV Testing HPV Testing [facility] Start: 12-25-2004 Pap Testing Pap Testing [facility] Start: 12-25-2002 Urine microalbumin profile DTaP,Tdap,Td Vaccine (1 - Tdap) [facility] Start: 12-25-2001 Hepatitis C Screening Hepatitis C Sc reening [facility] Start: 12-25-2001 HIV Screening HIV Screening [facility] Start: 1985 Hepatitis B Vaccine (1 of 3 - 3-dose series) Hepatitis B Vaccine (1 of 3 - 3-dose series) [facility] Immunizations Immunization Date Immunization Notes Care Provider Michael cortez 09-10-2020 Pfizer-BioNTech COVI D-19 Vacc 30 MCG/0.3ML Intramuscular Suspension Allison Mendez Work Phone: [facility] 250 DO Work Phone: 08-20-2020 Pfizer-BioNTech COVI D-19 Vacc 30 MCG/0.3ML Intramuscular Suspension Allison Mendez Work Phone: -[facility] 250 DO Work Phone: Payers Date Payer Category Payer Medicaid [employer] [id number] 2022-Present [phone] [address] [place] [address] Medicaid [id number] 1983 Unknown [id number] [id number] 1983 Unknown [id number] 2.16.840.1.973087.3.579.2.593 1983 Unknown [id number] 2.16.840.1.988126.3.579.2.593 1983 Unknown [id number] 2.16.840.1.652058.3.579.2.593 1983 Unknown [id number] 2.16.840.1.056096.3.579.2.593 1983 Unknown [id number] 2.16.840.1.557841.3.579.2.593 1983 Unknown [id number] 2.16.840.1.460536.3.579.2.593 1983 Unknown [id number] 2.16.840.1.916675.3.579.2.593 1983 Unknown [id number] 2.16.840.1.769809.3.579.2.593 1983 Unknown [id number] 2.16.840.1.234691.3.579.2.593 1983 Unknown [id number] 2.16.840.1.163848.3.579.2.593 1983 Unknown [id number] 2.16.840.1.026113.3.579.2.593 1983 Unknown [id number] 2.16.840.1.189314.3.579.2.593 1983 Unknown [id number] 2.16.840.1.649890.3.579.2.593 1983 Unknown [id number] 2.16.840.1.873823.3.579.2.1259 1959 Unknown [id number] Unknown LJ ON LICENSE OF [facility] Social History Date Type Detail Facility Start: 02-13-2023 End: 02-17-2023 No alcohol use No alcohol use [facility] Comment on above: 1-2 cups coffee brian y; Start: 02-17-2023 Tobacco smoking stat [facility] Never smoked tobacco [facility] Start: 02-17-2023 Tobacco use and exposure Smoke less tobacco non-user [facility] Start: 02-13-2023 End: 02-17-2023 Tobacco use panel [facility] Adult Depression Scr eening Assessment 0 [facility] Start: 1985 Sex Assigned At Not on file [facility] Progress note 02-17-2023 Note Date & Type Note Facility 02-17-2023 Note HNO ID: [id number] Author: Alberto Marcus MD Service: ? Author Type: Physician Type: Progress Notes Filed: 02/17/2023 10:02 AM Note Text: Rheumatology Clinic Date of Service: 02/17/2023 Patient: Denisha Velasco Medical Record: [id number] Last Rheumatology visit: None at [facility] History of Present Illness Denisha Velasco is [...] each day a (more content not included)... [facility] Instructions 02-17-2023 Patient Instructions Note Date & [...] and/or non-rheumatologic conditions. A meta-analysis from the [facility] in [place] suggested that concomitant fibromyalgia is common in patients with inflammatory arthritis, which can have a major impact on assessing disease severity and treatment decisions. The overall prevalence of fibromyalgia was 21% among patients with rheumatoid arthritis and 13% in ankylosing spondylitis, whereas the condition is reported in approximately 1% to 5% of the general population, according to Wyatt Luke, [facility], PhD, of the [facility] in [place], and colleagues. The cornerstones of therapy for [...] guidelines of fibromyalgia: (1) https://[email or web address].org/I-Am-A/Patient- Caregiver/Diseases-Conditions/Fibromyalgia (2) [email or web address]/ documented in this encounter [facility] History of Present illness Narrative 02-17-2023 Alberto Marcus MD - 02/17/2023 8:49 AM EDT Note Date & Type Note Facility 02-17-2023 History of Presen t illness Narrative Images from the original note were not included. Rheumatology Clinic Date of Service: 02/17/2023 Patient: Denisha Velasco Medical Record: [id number] Last Rheumatology visit: None at [facility] History of Present Illness Denisha Velasco is [...] RATE WESTERGREN *Canceled* C-REACTIVE PROTEIN (CRP) *Canceled* LEONRAD BY IFA SCREEN *Canceled* ANTI JASWANT ID [...] which included preparing to see the patient, [id number] patient care, completing clinical documentation, obtaining and/or reviewing separately obtained history, performing a medically appropriate examination, and counseling and educating the patient/family/caregiver. Alberto Marcus MD Rheumatology Date: February 17, 2023 Time: 8:50 AM documented in this encounter [facility] Evaluation note Note Date & Type Note Facility Evaluation note Diagnosis Fibromyalgia- Primary Mylagia and myositis, unspecified Sedimentation rate elevation Elevated sedimentation rate Fatigue, unspecified type Vitamin D deficiency Unspecified vitamin D deficiency documented in this encounter [facility] History of Present illness Narrative Note Date [...] of doing it at her young age. -[facility] [address] DO Work Phone: Summary Purpose Family [...] section and content) DATE CREATED AUTHOR 06/30/2022 [facility] DATE CREATED AUTHOR AUTHOR'S ORGANIZ ATION 07/01/2022 [employer] DATE CREATED AUTHOR AUTHOR'S ORGANIZ ATION 07/08/2022 [facility] DATE CREATED AUTHOR AUTHOR'S ORGANIZ ATION 02/18/[address] [facility] DATE CREATED AUTHOR AUTHOR'S ORGANIZ ATION 05/01/2023 [facility] [employer] Source Comments (unrecognize d section and content) In the event this informatio n is protected by the Federal Confidentiality of Alcohol and Drug Abuse Patient Records regulations: The Federal rules restrict any use of the information to criminally investigate or prosecute any alcohol or drug abuse patient.[facility] Reason for Visit (unrecogniz ed section and [...] BE BASED ON THE PRIMARY CLINICAL RECORDS. [facility]. provides no warranty or guarantee of the accuracy or completeness of information in this document.
--- OUTSIDE RECORDS SUMMARY | 2023-06-11 09:07 | XMS_ITS | CCD ---
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 Chandler Pryor Attending Unavailable Katrin LIMON, Dr. Chandler Pryor Referring Unavailable Aichholz, . Allison Ara Primary Care Unavailab le Aichholz, Allison Ara Unavailable Unavailable Unavailable AICHHOLZ, MAGNETIC DOCTOR ALLISON Consulting Unavailable AICHHOLZ, MAGNETIC DOCTOR ALLISON Attending Unavailable AICHHOLZ, MAGNETIC DOCTOR ALLISON Primary Care Unavailable AICHHOLZ, MAGNETIC DOCTOR ALLISON Admitting Unavailable AICHHOLZ, MAGNETIC DOCTOR ALLISON Consulting Unavailable AICHHOLZ, MAGNETIC DOCTOR ALLISON Attending Unavailable AICHHOLZ, MAGNETIC DOCTOR ALLISON Primary Care Unavailable AICHHOLZ, MAGNETIC DOCTOR ALLISON Admitting Unavailable AICHHOLZ, MAGNETIC DOCTOR ALLISON Consulting Unavailable AICHHOLZ, MAGNETIC DOCTOR ALLISON Attending Unavailable AICHHOLZ, MAGNETIC DOCTOR ALLISON Admitting Unavailable AICHHOLZ, MAGNETIC DOCTOR ALLISON Primary Care Unavailable FAWWAD, MEI H Admitting Unavailable AICHHOLZ, MAGNETIC DOCTOR ALLISON Primary Care Unavailable VERO WILSON Consulting Unavailable FAWWAD, MEI H Attending Unavailable FAWWAD, MEI H Consulting Unavailable AICHHOLZ, MAGNETIC DOCTOR ALLISON Consulting Unavailable AICHHOLZ, MAGNETIC DOCTOR ALLISON Attending Unavailable AICHHOLZ, MAGNETIC DOCTOR ALLISON Admitting Unavailable AICHHOLZ, MAGNETIC DOCTOR ALLISON Primary Care Unavailable DR ZINA GREGORY Consulting Unavailable JESSE HATCH Attending Unavailable JESSE HATCH Admitting Unavailable AICHHOLZ, MAGNETIC DOCTOR ALLISON Primary Care Unavailable JESSE HATCH Consulting Unavailable AICHHOLZ, MAGNETIC DOCTOR ALLISON Primary Care Unavailable JESSE HATCH Attending Unavailable JESSE HATCH Admitting Unavailable JESSE HATCH Consulting Unavailable Lali Patel Consulting Unavailable AICHHOLZ, MAGNETIC DOCTOR ALLISON Primary Care Unavailable HONOLULU, DR VERO De Oliveira Consulting Unavailable PAY ., DR PONCE Attending Unavailable PAY ., DR PONCE Admitting Unavailable PAY ., DR PONCE Consulting Unavailable AICHHOLZ, MAGNETIC DOCTOR ALLISON Admitting Unavailable AICHHOLZ, MAGNETIC DOCTOR ALLISON Attending Unavailable AICHHOLZ, MAGNETIC DOCTOR ALLISON Primary Care Unavailable AICHHOLZ, MAGNETIC DOCTOR ALLISON Attending Unavailable AICHHOLZ, MAGNETIC DOCTOR ALLISON Admitting Unavailable AICHHOLZ, MAGNETIC DOCTOR ALLISON Primary Care Unavailable HONOLULU, DR VERO De Oliveira Consulting Unavailable AICHHOLZ, MAGNETIC DOCTOR ALLISON Consulting Unavailable AICHHOLZ, MAGNETIC DOCTOR ALLISON Primary Care Unavailable HONOLULU, DR VERO De Oliveira Consulting Unavailable MICHAELWWANaomi, H Attending Unavailable FAWWAD, MEI H Admitting Unavailable FAWWAD, MEI H Consulting Unavailable AICHHOLZ, MAGNETIC DOCTOR ALLISON Admitting Unavailable AICHHOLZ, MAGNETIC DOCTOR ALLISON Primary Care Unavailable AICHHOLZ, MAGNETIC DOCTOR ALLISON Consulting Unavailable AICHHOLZ, MAGNETIC DOCTOR ALLISON Attending Unavailable AICHHOLZ, MAGNETIC DOCTOR ALLISON Admitting Unavailable AICHHOLZ, MAGNETIC DOCTOR ALLISON Primary Care Unavailable AICHHOLZ, MAGNETIC DOCTOR ALLISON Consulting Unavailable AICHHOLZ, MAGNETIC DOCTOR ALLISON Attending Unavailable Unavailable Primary Care Provider Unavailabl ALBERTO Baxter Referring Unavaila ALBERTO Ray Attending Unavaila ble AICHHOLZ, ALLISON ARA Referring Unavailable AICHHOLZ, ALLISON Attending Unavailable Allergies Allergy Classification Reported Allergen(s) Allergy Type Date of Onset Reaction(s) Facility (3 sources) gabapentin; Translations: [gabapentin] Drug Allergy 3 Other: See Comments [facility] (2 sources) hydroCHLOROthiaz ney; Translations: [hydroCHLOROthia zide CAPS] Drug Allergy 3 Other: See Comments [facility] (1 source) gabapentin Drug Allergy [facility] Repository (2 sources) hydroCHLOROthiaz ney; Translations: [HYDROCHLOROTHIA ZIDE] Drug Allergy 4 [facility] Repository Medications Completed/Discontinued Medications Medication Drug [...] on above: Take 1 capsule by mo ut every afternoon. 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 Sufficiency/Optimal Levels: 31-80 ng/mL Toxicity: > 100 ng/mL. Test performed by chemiluminescent immunoassay. Performed By: #### 1 989-3 #### [facility] CLIA [id number] [address] [place] [address] [place] CBC W Auto Differential pane l (Bld)on 02-17-2023 Basophils (Bld) [#/Vol] 0.03 10*3/uL <0.11 k/uL [facility] Basophils/100 WBC (Bld) 0.3 % [facility] Differential cell count method Nom (Bld) Auto [facility] Eosinophils (Bld) [#/Vol] 0.12 10*3/uL <0.46 k/uL [facility] Eosinophils/100 WBC (Bld) 1.2 % [facility] Erythrocyte distribution width (RBC) [Ratio] 12.7 % 11.5 - 15.0 % [facility] Hematocrit (Bld) [Volume fraction] 44.5 % 36.0 - 46.0 % [facility] Hemoglobin (Bld) [Mass/Vol] 14.4 g/dL 11.5 - 15.5 g/dL [facility] Immature granulocytes (Bld) [#/Vol] 0.03 10*3/uL <0.10 k/uL [facility] Immature granulocytes/100 WBC (Bld) 0.3 % [facility] Lymphocytes (Bld) [#/Vol] 1.93 10*3/uL 1.00 - 4.00 k/uL [facility] Lymphocytes/100 WBC (Bld) 19.7 % [facility] MCH (RBC) [Entitic mass] 30.3 pg 26.0 - 34.0 pg [facility] MCHC (RBC) [Mass/Vol] 32.4 g/dL 30.5 - 36.0 g/dL [facility] MCV (RBC) [Entitic vol] 93.5 fL 80.0 - 100.0 fL [facility] Monocytes (Bld) [#/Vol] 0.78 10*3/uL <0.87 k/uL [facility] Monocytes/100 WBC (Bld) 7.9 % [facility] Neutrophils (Bld) [#/Vol] 6.93 10*3/uL 1.45 - 7.50 k/uL [facility] Neutrophils/100 WBC (Bld) 70.6 % [facility] Nucleated RBC (Bld) [#/Vol] <0.01 k/uL [facility] Nucleated RBC/100 WBC (Bld) [Ratio] 0.0 /100 WBC [facility] Platelet mean volume (Bld) [Entitic vol] 13.2 fL High 9.0 - 12.7 fL [facility] Platelets (Bld) [#/Vol] 245 10*3/uL 150 - 400 k/uL [facility] RBC (Bld) [#/Vol] 4.76 10*6/uL 3.90 - 5.2 0 m/uL [facility] WBC (Bld) [#/Vol] 9.82 10*3/uL 3.70 - 11. 00 k/uL [facility] Basophils (Bld) [#/Vol] 0.03 10*3/uL Normal <0.11 [facility] Comment on above: Order Comment: Speci men Type: BLOOD SPECIMEN [facility] Facility[facility] Address: [address] [place] [address] Performed By: #### 5 7021-8 #### [facility] CLIA [id number] [address] [place] [address] [place] Basophils/100 WBC (Bld) 0.3 % Normal [facility] Comment on above: Order Comment: Speci men Type: BLOOD SPECIMEN [facility] Address: [address] [place] [address] Performed By: #### 5 7021-8 #### [facility] CLIA [id number] [address] [place] [address] [place] Differential cell count method Nom (Bld) Auto Normal [facility] Comment on above: Order Comment: Speci men Type: BLOOD SPECIMEN [facility] Address: [address] [place] [address] Performed By: #### 5 7021-8 #### [facility] CLIA [id number] [address] [place] [address] [place] Eosinophils (Bld) [#/Vol] 0.12 10*3/uL Normal <0.46 [facility] Comment on above: Order Comment: Speci men Type: BLOOD SPECIMEN [facility] Address: [address] [place] [address] Performed By: #### 5 7021-8 #### [facility] CLIA [id number] [address] [place] [address] [place] Eosinophils/100 WBC (Bld) 1.2 % Normal [facility] Comment on above: Order Comment: Speci men Type: BLOOD SPECIMEN [facility] Address: [address] [place] [address] Performed By: #### 5 7021-8 #### [facility] CLIA [id number] [address] [place] [address] [place] Erythrocyte distribution width (RBC) [Ratio] 12.7 % Normal 11.5-15.0 [facility] Comment on above: Order Comment: Speci men Type: BLOOD SPECIMEN [facility] Address: [address] [place] [address] Performed By: #### 5 7021-8 #### [facility] CLIA [id number] [address] [place] [address] [place] Hematocrit (Bld) [Volume fraction] 44.5 % Normal 36.0-46.0 [facility] Comment on above: Order Comment: Speci men Type: BLOOD SPECIMEN [facility] Address: [address] [place] [address] Performed By: #### 5 7021-8 #### [facility] CLIA [id number] [address] [place] [address] [place] Hemoglobin (Bld) [Mass/Vol] 14.4 g/dL Normal 11.5-15.5 [facility] Comment on above: Order Comment: Speci men Type: BLOOD SPECIMEN [facility] Address: [address] [place] [address] Performed By: #### 5 7021-8 #### [facility] CLIA [id number] [address] [place] [address] [place] Immature granulocytes (Bld) [#/Vol] 0.03 10*3/uL Normal <0.10 [facility] Comment on above: Order Comment: Speci men Type: BLOOD SPECIMEN [facility] Address: [address] [place] [address] Performed By: #### 5 7021-8 #### [facility] CLIA [id number] [address] [place] [address] [place] Immature granulocytes/100 WBC (Bld) 0.3 % Normal [facility] Comment on above: Order Comment: Speci men Type: BLOOD SPECIMEN Order[facility] Address: [address] [place] [address] Performed By: #### 5 7021-8 #### [facility] CLIA [id number] [address] [place] [address] [place] Lymphocytes (Bld) [#/Vol] 1.93 10*3/uL Normal 1.00-4.00 [facility] Comment on above: Order Comment: Speci men Type: BLOOD SPECIMEN Order[facility] Address: [address] [place] [address] Performed By: #### 5 7021-8 #### [facility] CLIA [id number] [address] [place] [address] [place] Lymphocytes/100 WBC (Bld) 19.7 % Normal [facility] Comment on above: Order Comment: Speci men Type: BLOOD SPECIMEN Order[facility] Address: [address] [place] [address] Performed By: #### 5 7021-8 #### [facility] CLIA [id number] [address] [place] [address] [place] MCH (RBC) [Entitic mass] 30.3 pg Normal 26.0-34.0 [facility] Comment on above: Order Comment: Speci men Type: BLOOD SPECIMEN [facility] Address: [address] [place] [address] Performed By: #### 5 7021-8 #### [facility] CLIA [id number] [facility] [place] [address] [place] MCHC (RBC) [Mass/Vol] 32.4 g/dL Normal 30.5-36.0 [facility] Comment on above: Order Comment: Speci men Type: BLOOD SPECIMEN [facility] Address: [address] [place] [address] Performed By: #### 5 7021-8 #### [facility] CLIA [id number] [address] [place] [address] [place] MCV (RBC) [Entitic vol] 93.5 fL Normal 80.0-100.0 [facility] Comment on above: Order Comment: Speci men Type: BLOOD SPECIMEN [facility] Address: [address] [place] [address] Performed By: #### 5 7021-8 #### [facility] CLIA [id number] [address] [place] [address] [place] Monocytes (Bld) [#/Vol] 0.78 10*3/uL Normal <0.87 [facility] Comment on above: Order Comment: Speci men Type: BLOOD SPECIMEN [facility] Address: [address] [place] [address] Performed By: #### 5 7021-8 #### [facility] CLIA [id number] [address] [place] [address] [place] Monocytes/100 WBC (Bld) 7.9 % Normal [facility] Comment on above: Order Comment: Speci men Type: BLOOD SPECIMEN [facility] Address: [address] [place] [address] Performed By: #### 5 7021-8 #### [facility] CLIA [id number] [address] [place] [address] [place] Neutrophils (Bld) [#/Vol] 6.93 10*3/uL Normal 1.45-7.50 [facility] Comment on above: Order Comment: Speci men Type: BLOOD SPECIMEN [facility] Address: [address] [place] [address] Performed By: #### 5 7021-8 #### [facility] CLIA [id number] [address] [place] [address] [place] Neutrophils/100 WBC (Bld) 70.6 % Normal [facility] Comment on above: Order Comment: Speci men Type: BLOOD SPECIMEN Order[facility] Address: [address] [place] [address] Performed By: #### 5 7021-8 #### [facility] CLIA [id number] [address] [place] [address] [place] Nucleated RBC (Bld) [#/Vol] 10*3/uL Normal <0.01 [facility] Comment on above: Order Comment: Speci men Type: BLOOD SPECIMEN Order[facility] Address: [address] [place] [address] Performed By: #### 5 7021-8 #### [facility] CLIA [id number] [address] [place] [address] [place] Nucleated RBC/100 WBC (Bld) [Ratio] 0.0 /100 WBC Normal [facility] Comment on above: Order Comment: Speci men Type: BLOOD SPECIMEN Order[facility] Address: [address] [place] [address] Performed By: #### 5 7021-8 #### [facility] CLIA [id number] [address] [place] [address] [place] Platelet mean volume (Bld) [Entitic vol] 13.2 fL High 9.0-12.7 [facility] Comment on above: Order Comment: Speci men Type: BLOOD SPECIMEN [facility] Address: [address] [place] [address] Performed By: #### 5 7021-8 #### [facility] CLIA [id number] [address] [place] [address] [place] Platelets (Bld) [#/Vol] 245 10*3/uL Normal 150-400 [facility] Comment on above: Order Comment: Speci men Type: BLOOD SPECIMEN [facility] Address: [address] [place] [address] Result Comment: Resu lts checked and verified.No clot detected. Performed By: #### 5 7021-8 #### [facility] CLIA [id number] [address] [place] [address] [place] RBC (Bld) [#/Vol] 4.76 10*6/uL Normal 3.90-5.20 [facility] Comment on above: Order Comment: Speci men Type: BLOOD SPECIMEN [facility] Address: [address] [place] [address] Performed By: #### 5 7021-8 #### [facility] CLIA [id number] [address] [place] [address] [place] WBC (Bld) [#/Vol] 9.82 10*3/uL Normal 3.70-11.00 [facility] Comment on above: Order Comment: Speci men Type: BLOOD SPECIMEN [facility] Address: [address] [place] [address] Performed By: #### 5 7021-8 #### [facility] CLIA [id number] [address] [place] [address] [place] CNOVon 02-17-2023 CNOV Office Visit (GONSALOAMARJIT ) DENISHA VELASCO ([id number]) 1985 F Date Time Provider Department 02/17/23 9:00 AM ALBERTO MARCUS During your visit today, we recorded the following information about you: Pulse Blood pressure Weight 96/minute 116/82 126.6 kg Alberto Marcus MD 02/17/2023 10:02 AM Signed [facility] Date of Service: 02/17/2023 Patient: Denisha Velasco Medical Record: [id number] Last Rheumatology visit: None at [facility] History of Present Illness Denisha [...] other than (more content not included)... Normal [facility] VITAMIN D 25 HYDROXYon 02-17 25-hydroxyvitamin D3 [Mass/Vol] 14.6 ng/mL Low 31.0 - 80.0 ng/mL [facility] Vit B12 SerPl-mCncon 023 Cobalamin (Vitamin B12) [Mass/Vol] 347 pg/mL Normal 232-1245 [facility] Comment on above: Order Comment: Speci men Type: BLOOD SPECIMEN [facility] Address: [address] [place] [address] Performed By: #### 2 132-9 #### [facility] CLIA [id number] [facility] [place] [address] [place] SARS-CoV2 IgMon 07-07-2022 Comment Notes Normal [facility] Comment on above: Result Comment: Nega tive results to antibodies against SARS-CoV-2 are generally indicative of non-exposure to virus and lack of longevity of antibody response. Performed By: #### C VDABM #### [facility] [address] [place] [address] Dr. Karey Ordoñez Disclaimer Notes Normal [facility] Comment on above: Result Comment: This is a lab developed test. This test has been validated in accordance with [facility] of [facility] guidelines and FDA guidance document [...] due to past or present infection with cuo-HQLL-CkI-2 coronavirus strains, such as coronavirus HKU1, NL63, OC43, or 229E. Performed By: #### C VDABM #### [facility] [address] [place] [address] Dr. Karey Ordoñez Electronically Signed By Comment [facility] Comment on above: Result Comment: Fernando Scales Performed By: #### C VDABM #### [facility] [address] [place] [address] Dr. Karey Ordoñez Methodology Comment [facility] Comment on above: Result Comment: Chem iluminescence Performed By: #### C VDABM #### [facility] [address] [place] [address] Dr. Karey Ordoñez References Notes [facility] Comment on above: Result Comment: Shledon Godinez, Sheldon Maria, Roly Bass, Jeffry Summers, [...] application of serological tests in clinical practice. 10.1101/[id number]. Performed By: #### C VDABM #### [facility] [address] [place] [address] Dr. Karey Ordoñez Result Negative Normal [facility] Comment on above: Performed By: #### C VDABM #### [facility] [address] [place] [address] Dr. Karey Ordoñez Value 0.03 COI Normal [facility] Comment on above: Result Comment: <0.8 : Negative 0.8-<1.0: Indeterminate >=1.0: Positive Performed By: #### C VDABM #### [facility] [address] [place] [address] Dr. Karey Ordoñez SARS-CoV2 IgGon 07-04-2022 SARS-CoV-2 (COVID-19) IgG IA.rapid Ql (S/P/Bld) >800.0 Normal Neg <13.0 [facility] Comment on above: Performed By: #### C VDIGG #### [facility] [address] [place] [address] Dr. Karey Ordoñez SARS-CoV-2 (COVID-19) RNA RUBY+probe Ql (Unsp spec) Positive Normal [facility] Comment on above: Result Comment: Anti bodies against the SARS-CoV-2 spike protein, including the receptor binding domain (RBD) were detected. It is not yet known what level of antibody to SARS-CoV-2 spike protein correlates to immunity against developing symptomatic SARS-CoV-2 disease. This assay was performed using [employer] Liaison(R) SARS-CoV-2 Trimeric S IgG assay. Performed By: #### C VDIGG #### [facility] [address] [place] [address] Dr. Karey Ordoñez Office Visit (Cardiology)on 06-30-2022 Follow-up visit Diagnoses/Problems Assessed Benign essential hypertension (401.1) (I10) Vertigo (780.4) (R42) Morbid obesity with BMI of 45.0-49.9, adult (278.01,V85.42) (E66.01,Z68.42) Never smoker Orders Morbid obesity with BMI of 45.0-49.9, adult Healthy Weight Tips; Status:Complete - Retrospective Authorization; Done: [id number] Some eating tips that can help you lose weight.; Status:Complete - Retrospective Authorization; Done: [id number] SocHx: Never smoker Tobacco Use Screening; Status:Complete; Done: [id number] Patient Instructions Please bring all medicines, vitamins, [...] negative for complaint. Vitals Vital Signs Recorded: [id number] 09:45AM Heart Rate74, R Radial Auwmozcx393, RUE, Sitting Pnhbnllzr65, RUE, Sitting Height5 ft 3 in Mhmejk784 lb BMI Jpjrjercgg56.42 kg/m2 BSA Calculated2.23 Tobacco Useb) No PHQ-2 [...] . Abdomen: (more content not included)... Normal I and love and you Tobacco Screening.on 023 Adult depression screening assessment No [facility] 250 DO Work Phone: Fall risk assessment a) No falls within the last year [facility] 250 DO Work Phone: Tobacco use status [facility] b) No [facility] 250 DO Work Phone: FREE T4on 05-12-2022 Free T4 [Mass/Vol] 1.11 ng/dL Normal 0.76-1.46 [facility] Comment on above: Performed By: #### F T4 #### [facility] [address] [place] [address] Dr. Karey Ordoñez GLYCOHEMOGLOBIN A1Con 2022 ADA RECOMMENDATION SEE BELOW Normal [facility] Comment on above: Result Comment: ADA RECOMMENDED LIMIT 4.0 - 6.0 ADA THERAPEUTIC TARGET < 7.0 ACTION SUGGESTED > 7.0 Performed By: #### F T4 #### [facility] [address] [place] [address] Dr. Karey Ordoñez Glucose [Mass/Vol] 114 mg/dL Normal [facility] Comment on above: Performed By: #### F T4 #### [facility] [address] [place] [address] Dr. Karey Ordoñez HbA1c (Bld) [Mass fraction] 5.6 % Normal 4.5-6.2 [facility] Comment on above: Performed By: #### F T4 #### [facility] [address] [place] [address] Dr. Karey Ordoñez PROF CHEM 8 (BAS METB)on Anion gap [Moles/Vol] 13.5 mmol/L Normal [facility] Comment on above: Performed By: #### T SH, BMP #### [facility] [address] [place] [address] Dr. Karey Ordoñez Calcium [Mass/Vol] 9.1 mg/dL Normal 8.5-10.1 [facility] Comment on above: Performed By: #### T SH, BMP #### [facility] [address] [address] [address] Karey Ordoñez Chloride [Moles/Vol] 103 mmol/L Normal 98-107 [facility] Comment on above: Performed By: #### T SH, BMP #### [facility] [address] [address] [address] Karey Ordoñez CO2 [Moles/Vol] 26.7 mmol/L Normal 21.0-32.0 [facility] Comment on above: Performed By: #### T SH, BMP #### [facility] [address] [address] [address] Karey Ordoñez Creatinine [Mass/Vol] 0.79 mg/dL Normal 0.55-1.02 [facility] Comment on above: Performed By: #### T SH, BMP #### [facility] [address] [place] [address] Dr. Karey Ordoñez EGFR-AF ISRAELI >60 Normal >=60 [facility] Comment on above: Performed By: #### T SH, BMP #### [facility] [address] [place] [address] Dr. Karey Ordoñez EGFR-NON AF ISRAELI >60 Normal >=60 [facility] [facility] Comment on above: Performed By: #### T SH, BMP #### [facility] [address] [place] [address] Dr. Karey Ordoñez Glucose [Mass/Vol] 94 mg/dL Normal 74-106 [facility] Comment on above: Performed By: #### T SH, BMP #### [facility] [address] [place] [address] Dr. Karey Ordoñez Potassium [Moles/Vol] 4.2 mmol/L Normal 3.5-5.1 [facility] Comment on above: Performed By: #### T SH, BMP #### [facility] [address] [place] [address] Dr. Karey Ordoñez Sodium [Moles/Vol] 139 mmol/L Normal 136-145 [facility] Comment on above: Performed By: #### T SH, BMP #### [facility] [address] [place] [address] Dr. Karey Ordoñez Urea nitrogen [Mass/Vol] 12.0 mg/dL Normal 7.0-18.0 [facility] Comment on above: Performed By: #### T SH, BMP #### [facility] [address] [address] [address] Karey Ordoñez Urea nitrogen/Creatinine [Mass ratio] 15.2 mg/mg Normal [facility] Comment on above: Performed By: #### T SH, BMP #### [facility] [address] [address] [address] Karey Ordoñez TSHon 05-12-2022 TSH 1.098 uIU/mL Normal 0.358-3.740 [facility] Comment on above: Performed By: #### T SH, BMP #### [facility] [address] [address] [address] Karey Ordoñez FREE T3on 02-06-2022 FREE T3 1.79 pg/mlL Critically low 2.18-3.98 [facility] Comment on above: Performed By: #### F T3, TSH #### [facility] [address] [address] [address] Karey Ordoñez FREE T4on 02-06-2022 Free T4 [Mass/Vol] 1.12 ng/dL Normal 0.76-1.46 [facility] Comment on above: Performed By: #### F T4 #### [facility] [address] [address] [address] Karey Ordoñez TSHon 02-06-2022 TSH 2.571 uIU/mL Normal 0.358-3.740 [facility] Comment on above: Performed By: #### F T3, TSH #### [facility] [address] [place] [address] Dr. Karey Ordoñez MRI BRAIN WO CONon [...] by: VERO ATKINS Date: 2022-01-22 13:49 Normal [facility] CT CSPINE WO CONon 2 [...] LALI PATEL Date: 2022-01-18 10:22 Normal [facility] US CAROTID ART BILon 022 US [...] ZINA GREGORY Date: 2022-01-17 18:33 Normal [facility] CT HEAD WO CONon 01-15-2022 CT [...] by: VERO ATKINS Date: 2022-01-15 11:07 Normal [facility] MRI KNEE RT WO CONon 022 [...] by: VERO ATKINS Date: 2021-12-18 15:05 Normal [facility] XR KNEE RT 3Von 12-10-2021 [...] VERO WILSON Date: 2021-12-10 06:40 Normal [facility] LIVER PROFILEon 10-29-2021 Albumin [Mass/Vol] 3.7 g/dL Normal 3.4-5.0 [facility] Comment on above: Performed By: #### F T4 #### [facility] [address] [place] [address] Dr. Karey Ordoñez Albumin/Globulin [Mass ratio] 0.9 {ratio} Normal [facility] Comment on above: Performed By: #### F T4 #### [facility] [address] [place] [address] Dr. Karey Ordoñez ALP [Catalytic activity/Vol] 111 U/L Normal 46-116 [facility] Comment on above: Performed By: #### F T4 #### [facility] [address] [place] [address] Dr. Karey Ordoñez ALT [Catalytic activity/Vol] 22 U/L Normal 14-59 [facility] Comment on above: Performed By: #### F T4 #### [facility] [address] [place] [address] Dr. Karey Ordoñez AST [Catalytic activity/Vol] 12 U/L Critically low 15-37 [facility] Comment on above: Performed By: #### F T4 #### [facility] [address] [place] [address] Dr. Karey Ordoñez BILI, CONJUGATED 0.1 mg/dL Normal 0.0-0.2 [facility] Comment on above: Performed By: #### F T4 #### [facility] [address] [place] [address] Dr. Karey Ordoñez Bilirubin [Mass/Vol] 0.5 mg/dL Normal 0.2-1.0 [facility] Comment on above: Performed By: #### F T4 #### [facility] [address] [place] [address] Dr. Karey Ordoñez Globulin (S) [Mass/Vol] 4.1 g/dL Normal [facility] Comment on above: Performed By: #### F T4 #### [facility] [address] [place] [address] Dr. Karey Ordoñez Protein [Mass/Vol] 7.8 g/dL Normal 6.4-8.2 [facility] Comment on above: Performed By: #### F T4 #### [facility] [address] [place] [address] Dr. Karey Ordoñez INSULINon 10-02-2021 Insulin 10.5 uIU/mL Normal 2.6-24.9 [facility] Comment on above: Performed By: #### I NSULIN #### [facility] [address] [place] [address] Dr. Karey Ordoñez CBC AUTO DIFFon 10-01-2021 BASO # 0.0 103/ul Normal 0.0-0.1 [facility] Comment on above: Performed By: #### F T4 #### [facility] [address] [place] [address] Dr. Karey Ordoñez Basophils/100 WBC (Bld) 0.4 % Normal 0.2-2.0 [facility] Comment on above: Performed By: #### F T4 #### [facility] [address] [place] [address] Dr. Karey Ordoñez EO # 0.1 103/ul Normal 0.0-0.7 [facility] Comment on above: Performed By: #### F T4 #### [facility] [address] [place] [address] Dr. Karey Ordoñez Eosinophils/100 WBC (Bld) 1.1 % Normal 0.9-7.0 [facility] Comment on above: Performed By: #### F T4 #### [facility] [address] [place] [address] Dr. Karey Ordoñez Erythrocyte distribution width (RBC) [Ratio] 12.9 % Normal 11.0-15.0 [facility] Comment on above: Performed By: #### F T4 #### [facility] [address] [place] [address] Dr. Karey Ordoñez Hematocrit (Bld) [Volume fraction] 41.5 % Normal 36.0-48.0 [facility] Comment on above: Performed By: #### F T4 #### [facility] [address] [place] [address] Dr. Karey Ordoñez Hemoglobin (Bld) [Mass/Vol] 13.0 g/dL Normal 12.0-16.0 [facility] Comment on above: Performed By: #### F T4 #### [facility] [address] [place] [address] Dr. Karey Ordoñez IG # 0.04 10e3/ul Critically high 0.00-0.03 [facility] Comment on above: Performed By: #### F T4 #### [facility] [address] [place] [address] Dr. Karey Ordoñez IG % 0.5 % Normal 0.0-0.5 [facility] Comment on above: Performed By: #### F T4 #### [facility] [address] [place] [address] Dr. Karey Ordoñez LYMPH # 1.9 103/ul Normal 1.2-3.8 [facility] Comment on above: Performed By: #### F T4 #### [facility] [address] [place] [address] Dr. Karey Ordoñez Lymphocytes/100 WBC (Bld) 22.7 % Normal 20.5-60.0 [facility] Comment on above: Performed By: #### F T4 #### [facility] [address] [place] [address] Dr. Karey Ordoñez MANUAL DIFF REQ NO Normal [facility] Comment on above: Performed By: #### F T4 #### [facility] [address] [place] [address] Dr. Karey Ordoñez MCH (RBC) [Entitic mass] 28.9 pg Normal 26.7-34.0 [facility] Comment on above: Performed By: #### F T4 #### [facility] [address] [place] [address] Dr. Karey Ordoñez MCHC (RBC) [Mass/Vol] 31.3 g/dL Normal 29.9-35.2 [facility] Comment on above: Performed By: #### F T4 #### [facility] [address] [place] [address] Dr. Karey Ordoñez MCV (RBC) [Entitic vol] 92.2 fL Normal 81.0-99.0 [facility] Comment on above: Performed By: #### F T4 #### [facility] [address] [place] [address] Dr. Karey Ordoñez MONO # 0.6 103/ul Normal 0.3-0.8 [facility] Comment on above: Performed By: #### F T4 #### [facility] [address] [place] [address] Dr. Karey Ordoñez Monocytes/100 WBC (Bld) 6.8 % Normal 1.7-12.0 [facility] Comment on above: Performed By: #### F T4 #### [facility] [address] [place] [address] Dr. Karey Ordoñez NEUT # 5.8 103/ul Normal 1.4-6.5 [facility] Comment on above: Performed By: #### F T4 #### [facility] [address] [place] [address] Dr. Karey Ordoñez Neutrophils/100 WBC (Bld) 68.5 % Normal 43.0-75.0 [facility] Comment on above: Performed By: #### F T4 #### [facility] [address] [place] [address] Dr. Karey Ordoñez Platelet mean volume (Bld) [Entitic vol] 12.8 fL Normal 9.5-13.5 [facility] Comment on above: Performed By: #### F T4 #### [facility] [address] [place] [address] Dr. Karey Ordoñez PLT 231 103/ul Normal 150-450 [facility] Comment on above: Performed By: #### F T4 #### [facility] [address] [place] [address] Dr. Karey Ordoñez RBC 4.50 106/ul Normal 4.20-5.40 [facility] Comment on above: Performed By: #### F T4 #### [facility] [address] [place] [address] Dr. Karey Ordoñez WBC 8.5 103/ul Normal 4.0-11.0 [facility] Comment on above: Performed By: #### F T4 #### [facility] [address] [place] [address] Dr. Karey Ordoñez FREE T4on 10-01-2021 Free T4 [Mass/Vol] 1.27 ng/dL Normal 0.76-1.46 [facility] Comment on above: Performed By: #### F T4 #### [facility] [address] [place] [address] Dr. Karey Ordoñez GLYCOHEMOGLOBIN A1Con 2021 ADA RECOMMENDATION SEE BELOW Normal [facility] Comment on above: Result Comment: ADA RECOMMENDED LIMIT 4.0 - 6.0 ADA THERAPEUTIC TARGET < 7.0 ACTION SUGGESTED > 7.0 Performed By: #### A 1C #### [facility] [address] [place] [address] Dr. Karey Ordoñez Glucose [Mass/Vol] 123 mg/dL Normal [facility] Comment on above: Performed By: #### A 1C #### [facility] [address] [place] [address] Dr. Karey Ordoñez HbA1c (Bld) [Mass fraction] 5.9 % Normal 4.5-6.2 [facility] Comment on above: Performed By: #### A 1C #### [facility] [address] [address] [address] Karey Ordoñez LIPID PROFILEon 10-01-2021 CHOL-HDL RATIO NORM SEE BELOW Normal [facility] Comment on above: Result Comment: 3.3 - 4.4 LOW RISK 4.4 - 7.1 AVERAGE RISK 7.1 - 11.0 MODERATE RISK >11.0 HIGH RISK Performed By: #### F T4 #### [facility] [address] [address] [address] Karey Ordoñez Cholesterol [Mass/Vol] 182 mg/dL Normal <=200 [facility] Comment on above: Performed By: #### F T4 #### [facility] [address] [address] [address] Karey Ordoñez Cholesterol in HDL [Mass/Vol] 52 mg/dL Normal 40-60 [facility] Comment on above: Performed By: #### F T4 #### [facility] [address] [address] [address] Karey Ordoñez Cholesterol in LDL [Mass/Vol] 115.8 mg/dL Normal [facility] Comment on above: Performed By: #### F T4 #### [facility] [address] [address] [address] Karey Ordoñez Cholesterol.total/Ch olesterol in HDL [Mass ratio] 3.5 {ratio} Normal [facility] Comment on above: Performed By: #### F T4 #### [facility] [address] [address] [address] Karey Ordoñez HDL NORMAL > or = 60 mg/dl - LO W CARDIOVASCULAR RISK <40 mg/dl - HIGH CARDIOVASCULAR RISK Normal [facility] Comment on above: Performed By: #### F T4 #### [facility] [address] [address] [address] Karey Ordoñez LDL CALC NORMAL SEE BELOW Normal [facility] Comment on above: Result Comment: <100 mg/dl OPTIMAL 100 - 129 mg/dl NEAR OR ABOVE OPTIMAL 130 - 159 mg/dl BORDERLINE HIGH 160 - 189 mg/dl HIGH >190 mg/dl VERY HIGH Performed By: #### F T4 #### [facility] [address] [address] [address] Karey Ordoñez Triglyceride [Mass/Vol] 71 mg/dL Normal <=150 [facility] Comment on above: Performed By: #### F T4 #### [facility] [address] [place] [address] Dr. Karey Ordoñez VLDL CALC 14.2 mg/dL Normal [facility] Comment on above: Performed By: #### F T4 #### [facility] [address] [place] [address] Dr. Karey Ordoñez PROF 14(COMP METB)on 022 Albumin [Mass/Vol] 3.9 g/dL Normal 3.4-5.0 [facility] Comment on above: Performed By: #### F T4 #### [facility] [address] [place] [address] Dr. Karey Ordoñez Albumin/Globulin [Mass ratio] 0.9 {ratio} Normal [facility] Comment on above: Performed By: #### F T4 #### [facility] [address] [place] [address] Dr. Karey Ordoñez ALP [Catalytic activity/Vol] 117 U/L Critically high 46-116 [facility] Comment on above: Performed By: #### F T4 #### [facility] [address] [place] [address] Dr. Karey Ordoñez ALT [Catalytic activity/Vol] 25 U/L Normal 14-59 [facility] Comment on above: Performed By: #### F T4 #### [facility] [address] [place] [address] Dr. Karey Ordoñez Anion gap [Moles/Vol] 14.1 mmol/L Normal [facility] Comment on above: Performed By: #### F T4 #### [facility] [address] [place] [address] Dr. Karey Ordoñez AST [Catalytic activity/Vol] 14 U/L Critically low 15-37 [facility] Comment on above: Performed By: #### F T4 #### [facility] [address] [place] [address] Dr. Karey Ordoñez Bilirubin [Mass/Vol] 0.5 mg/dL Normal 0.2-1.0 [facility] Comment on above: Performed By: #### F T4 #### [facility] [address] [address] [address] Karey Ordoñez Calcium [Mass/Vol] 9.1 mg/dL Normal 8.5-10.1 [facility] Comment on above: Performed By: #### F T4 #### [facility] [address] [address] [address] Karey Ordoñez Chloride [Moles/Vol] 102 mmol/L Normal 98-107 [facility] Comment on above: Performed By: #### F T4 #### [facility] [address] [address] [address] Karey Ordoñez CO2 [Moles/Vol] 27.7 mmol/L Normal 21.0-32.0 [facility] Comment on above: Performed By: #### F T4 #### [facility] [address] [place] [address] Dr. Karey Ordoñez Creatinine [Mass/Vol] 0.76 mg/dL Normal 0.55-1.02 [facility] Comment on above: Performed By: #### F T4 #### [facility] [address] [place] [address] Dr. Karey Ordoñez EGFR-AF ISRAELI >60 Normal >=60 [facility] Comment on above: Performed By: #### F T4 #### [facility] [address] [place] [address] Dr. Karey Ordoñez EGFR-NON AF ISRAELI >60 Normal >=60 [facility] Comment on above: Performed By: #### F T4 #### [facility] [address] [place] [address] Dr. Karey Ordoñez Globulin (S) [Mass/Vol] 4.5 g/dL Normal [facility] Comment on above: Performed By: #### F T4 #### [facility] [address] [place] [address] Dr. Karey Ordoñez Glucose [Mass/Vol] 101 mg/dL Normal 74-106 [facility] Comment on above: Performed By: #### F T4 #### [facility] [address] [address] [address] Karey Ordoñez Potassium [Moles/Vol] 3.8 mmol/L Normal 3.5-5.1 [facility] Comment on above: Performed By: #### F T4 #### [facility] [address] [address] [address] Karey Ordoñez Protein [Mass/Vol] 8.4 g/dL Critically high 6.4-8.2 [facility] Comment on above: Performed By: #### F T4 #### [facility] [address] [address] [address] Karey Ordoñez Sodium [Moles/Vol] 140 mmol/L Normal 136-145 [facility] Comment on above: Performed By: #### F T4 #### [facility] [address] [place] [address] Dr. Karey Ordoñez Urea nitrogen [Mass/Vol] 10.0 mg/dL Normal 7.0-18.0 [facility] Comment on above: Performed By: #### F T4 #### [facility] [address] [address] [address] Karey Ordoñez Urea nitrogen/Creatinine [Mass ratio] 13.2 mg/mg Normal [facility] Comment on above: Performed By: #### F T4 #### [facility] [address] [place] [address] Dr. Karey Ordoñez TSHon 10-01-2021 TSH 2.445 uIU/mL Normal 0.358-3.740 [facility] Comment on above: Performed By: #### F T4 #### [facility] [address] [address] [address] Karey Ordoñez TSH RANGE SEE BELOW Normal [facility] Comment on above: Result Comment: <0.3 4 UIU/ml HYPERTHYROID 0.34-5.60 UIU/ml EUTHYROID >5.60 UIU/ml HYPOTHYROID Performed By: #### F T4 #### [facility] [address] [address] [address] Karey Ordoñez Vital Signs Date Time Vital Sign Value Performing Clinician Faci lity 02-17-2023 08:48-0400 Body weight 126.55 kg Alberto Marcus MD Work Phone: [facility] 02-17-2023 08:48-0400 Diastolic blood pressure 82 mm[Hg] Alberto Marcus MD Work Phone: [facility] 02-17-2023 08:48-0400 Heart rate 96 /min Alberto Marcus MD Work Phone: [facility] 02-17-2023 08:48-0400 SaO2% (BldA) [Mass fraction] 98 % Alberto Marcus MD Work Phone: [facility] 02-17-2023 08:48-0400 Systolic blood pressure 116 mm[Hg] Alberto Marcus MD Work Phone: [facility] 06-30-2022 09:45-0500 Body height 160.02 cm Allison Mendez Work Phone: [facility] [address] DO Work Phone: 06-30-2022 09:45-0500 Body mass index (BMI) [Ratio] 49.42 kg/m2 Allison Mendez Work Phone: [facility] 250 DO Work Phone: 06-30-2022 09:45-0500 Body surface area Derived from formula 2.23 m2 Allison Mendez Work Phone: [facility] 250 DO Work Phone: 06-30-2022 09:45-0500 Body weight 126.55 kg Allison Mendez Work Phone: [facility] 250 DO Work Phone: 06-30-2022 09:45-0500 Diastolic blood pressure 80 mm[Hg] Allison Mendez Work Phone: [facility] 250 DO Work Phone: 06-30-2022 09:45-0500 Heart rate 74 /min Allison Bullock Heidimichellesrinivasa Work Phone: [facility] 250 DO Work Phone: 06-30-2022 09:45-0500 Systolic blood pressure 128 mm[Hg] Allison Bullock Vanessa Work Phone: [facility] [facility] DO Work Phone: Encounters Encounter Date Encounter Type Care Provider Facility Start: 04-30-2023 End: 04-30-2023 ambulatory ALLISON MENDEZ Not Available Start: 02-17-2023 End: 02-18-2023 ambulatory ALBERTO MARCUS Facility:[facility] Start: 02-17-2023 End: 02-17-2023 Office outpatient new 60 minutes Alberto Marcus MD Work Phone: Rheumatology Comment on above: Fibromyalgia (Primar y Dx); Sedimentation rate elevation; Fatigue, unspecified type; Vitamin D deficiency Start: 07-07-2022 Encounter for antibo dy response examination LAURO MENDEZ [facility] Start: 07-03-2022 End: 07-04-2022 ambulatory LAURO ANDREWS HEIDIMichelleSRINIVASA Facility:[facility] Start: 07-03-2022 End: 07-04-2022 Encounter for antibody response examination LAURO ANDREWS VANESSA Facility:[facility] Start: 06-30-2022 Office outpatient vi sit 15 minutes Allison Bullock Vanessa Work Phone: [facility] [facility] DO Work Phone: Start: 06-30-[address] Chandler Wilkes II Facility: Start: 05-12-2022 End: 05-13-2022 ambulatory MAGNETIC DOCTOR ALLISON VANESSA Facility:[facility] Start: 03-04-2022 End: 03-04-2022 ambulatory JESSE HATCH Facility:[facility] Start: 02-06-2022 End: 09-30-2022 ambulatory MAGNETIC DOCTOR ALLISON AICHHOLZ Facility:[facility] Start: 01-22-2022 End: 01-23-2022 ambulatory MAGNETIC DOCTOR ALLISON AICHHOLZ Facility:[facility] Start: 01-18-2022 End: 01-18-2022 ambulatory MAGNETIC DOCTOR ALLISON AICHHOLZ Facility:[facility] Start: 01-17-2022 End: 01-18-2022 ambulatory LAURO ALLISON AICHHOLZ Facility:[facility] Start: 01-15-2022 End: 01-15-2022 ambulatory MAGNETIC DOCTOR ALLISON AICHHOLZ Facility:[facility] Start: 12-18-2021 End: 12-19-2021 ambulatory LAURO ALLISON AICHHOLZ Facility:[facility] Start: 12-09-2021 End: 12-10-2021 ambulatory SHAIKH Michelle LARA Facility:[facility] Start: 10-29-2021 End: 10-30-2021 ambulatory LAURO ALLISON AICHHOLZ Facility:[facility] Start: 10-01-2021 End: 10-02-2021 ambulatory MAGNETIC DOCTOR ALLISON AICHHOLZ Facility:[facility] Start: 08-13-2021 End: 10-01-2021 ambulatory MAGNETIC DOCTOR ALLISON AICHHOLZ Facility:[facility] Procedures Date Procedure Procedure [...] Chandler Wilkes, Status: Pen, Time: 11:00 AM [place] [facility] [address] DO Work Phone: Start: 02-17-2023 End: 04-19-2023 Cobalamin (Vitamin B12) [Mass/volume] in Serum or Plasma [facility] Work Phone: Comment on above: Expected: 02/17/2023 , Expires: 04/19/2023 Start: 02-17-2023 End: 04-19-2023 IMMUNOGLOBULINS YARI IMMUNOGLOBULINS YARI Lab Routine Sedimentation rate elevation Expected: 02/17/2023, Expires: 04/19/2023 [facility] Work Phone: Comment on above: Expected: 02/17/2023 , Expires: 04/19/2023 Start: 02-17-2023 End: 04-19-2023 PROTEIN ELECTROPHORESIS SERUM W/INTERP PROTEIN ELECTROPHORESIS SERUM W/INTERP Lab Routine Sedimentation rate elevation Expected: 02/17/2023, Expires: 04/19/2023 [facility] Work Phone: Comment on above: Expected: 02/17/2023 , Expires: 04/19/2023 Start: 01-09-2023 Covid-19 Vaccine () Covid-19 Vaccine () [facility] Start: 01-09-2023 Influenza vaccination Influenza Vacc ine (#1) [facility] Start: 05-11-2022 Depression Assessment Depression Ass essment [facility] Start: 12-25-2013 HPV Testing HPV Testing [facility] Start: 12-25-2004 Pap Testing Pap Testing [facility] Start: 12-25-2002 Urine microalbumin profile DTaP,Tdap,Td Vaccine (1 - Tdap) [facility] Start: 12-25-2001 Hepatitis C Screening Hepatitis C Sc reening [facility] Start: 12-25-2001 HIV Screening HIV Screening [facility] Start: 1985 Hepatitis B Vaccine (1 of 3 - 3-dose series) Hepatitis B Vaccine (1 of 3 - 3-dose series) [facility] Immunizations Immunization Date Immunization Notes Care Provider Michael cortez 09-10-2020 Pfizer-BioNTech COVI D-19 Vacc 30 MCG/0.3ML Intramuscular Suspension Allison Mendez Work Phone: [facility] 250 DO Work Phone: 08-20-2020 Pfizer-BioNTech COVI D-19 Vacc 30 MCG/0.3ML Intramuscular Suspension Allison Mendez Work Phone: -[facility] 250 DO Work Phone: Payers Date Payer Category Payer Medicaid [employer] [employer] [id number] 2022-Present [phone] [address] [place] [address] Medicaid [id number] 1983 Unknown [id number] [id number] 1983 Unknown [id number] 2.16.840.1.642139.3.579.2.593 1983 Unknown [id number] 2.16.840.1.746774.3.579.2.593 1983 Unknown [id number] 2.16.840.1.788595.3.579.2.593 1983 Unknown [id number] 2.16.840.1.106471.3.579.2.593 1983 Unknown [id number] 2.16.840.1.312063.3.579.2.593 1983 Unknown [id number] 2.16.840.1.135847.3.579.2.593 1983 Unknown [id number] 2.16.840.1.802436.3.579.2.593 1983 Unknown [id number] 2.16.840.1.224645.3.579.2.593 1983 Unknown [id number] 2.16.840.1.847475.3.579.2.593 1983 Unknown [id number] 2.16.840.1.419186.3.579.2.593 1983 Unknown [id number] 2.16.840.1.616646.3.579.2.593 1983 Unknown [id number] 2.16.840.1.513924.3.579.2.593 1983 Unknown [id number] 2.16.840.1.484259.3.579.2.593 1983 Unknown [id number] 2.16.840.1.115429.3.579.2.1259 1959 Unknown [id number] Unknown [facility] Social History Date Type Detail Facility Start: 02-13-2023 End: 02-17-2023 No alcohol use No alcohol use [facility] Comment on above: 1-2 cups coffee brian y; Start: 02-17-2023 Tobacco smoking stat [facility] Never smoked tobacco [facility] Start: 02-17-2023 Tobacco use and exposure Smoke less tobacco non-user [facility] Start: 02-13-2023 End: 02-17-2023 Tobacco use panel [facility] Adult Depression Scr eening Assessment 0 [facility] Start: 1985 Sex Assigned At Not on file [facility] Progress note 02-17-2023 Note Date & Type Note Facility 02-17-2023 Note HNO ID: [id number] Author: Alberto Marcus MD Service: ? Author Type: Physician Type: Progress Notes Filed: 02/17/2023 10:02 AM Note Text: Rheumatology Clinic Date of Service: 02/17/2023 Patient: Denisha Velasco Medical Record: [id number] Last Rheumatology visit: None at [facility] History of Present Illness Denisha [...] and/or non-rheumatologic conditions. A meta-analysis from the [facility] in [place] suggested that concomitant fibromyalgia is common in patients with inflammatory arthritis, which can have a major impact on assessing disease severity and treatment decisions. The overall prevalence of fibromyalgia was 21% among patients with rheumatoid arthritis and 13% in ankylosing spondylitis, whereas the condition is reported in approximately 1% to 5% of the general population, according to Wyatt Luke, [facility], PhD, of the [facility] in [place], and colleagues. The cornerstones of therapy for [...] guidelines of fibromyalgia: (1) https://[email or web address].org/I-Am-A/Patient- Caregiver/Diseases-Conditions/Fibromyalgia (2) [email or web address]/ documented in this encounter [facility] History of Present illness Narrative 02-17-2023 Alberto Marcus MD - 02/17/2023 8:49 AM EDT Note Date & Type Note Facility 02-17-2023 History of Presen t illness Narrative Images from the original note were not included. Rheumatology Clinic Date of Service: 02/17/2023 Patient: Denisha Velasco Medical Record: [id number] Last Rheumatology visit: None at [facility] History of Present Illness Denisha [...] which included preparing to see the patient, [id number] patient care, completing clinical documentation, obtaining and/or reviewing separately obtained history, performing a medically appropriate examination, and counseling and educating the patient/family/caregiver. Alberto Marcus MD Rheumatology Date: February 17, 2023 Time: 8:50 AM documented in this encounter [facility] Evaluation note Note Date & Type Note Facility Evaluation note Diagnosis Fibromyalgia- Primary Mylagia and myositis, unspecified Sedimentation rate elevation Elevated sedimentation rate Fatigue, unspecified type Vitamin D deficiency Unspecified vitamin D deficiency documented in this encounter [facility] History of Present illness Narrative [...] of doing it at her young age. -[facility] 250 DO Work Phone: Summary Purpose Family [...] section and content) DATE CREATED AUTHOR 06/30/2022 [facility] DATE CREATED AUTHOR AUTHOR'S ORGANIZ ATION 07/01/2022 [employer] DATE CREATED AUTHOR AUTHOR'S ORGANIZ ATION 07/08/2022 [facility] DATE CREATED AUTHOR AUTHOR'S ORGANIZ ATION 02/18/2023 [facility] DATE CREATED AUTHOR AUTHOR'S ORGANIZ ATION 05/01/2023 [facility] EP[employer] Source Comments (unrecognize d section and content) In the event this informatio n is protected by the Federal Confidentiality of Alcohol and Drug Abuse Patient Records regulations: The Federal rules restrict any use of the information to criminally investigate or prosecute any alcohol or drug abuse patient.[facility] Reason for Visit (unrecogniz ed [...] BE BASED ON THE PRIMARY CLINICAL RECORDS. [facility]. provides no warranty or guarantee of the accuracy or completeness of information in this document.
[2023-06-11 11:29] LABS: Estimated Average Glucose 103 mg/dL; Glycohemoglobin A1C 5.2 % (4.5-6.2)
== END 2023-06-11 08:45 | disposition home or self-care (01) ==
LOC: LAB 08:44
PROVIDERS: PCP Nurse Practitioner; Visit Provider Nurse Practitioner
DX: E55.9 Vitamin D deficiency, unspecified (principal); E11.9 Type 2 diabetes mellitus without complications
CPT/HCPCS: 36415; 82306; 83036

== ENCOUNTER 2023-09-07 13:14 | Outpatient (OUT) | payer OTHER, SELFPAY ==
--- OUTSIDE RECORDS SUMMARY | 2023-09-07 13:23 | XMS_ITS | CCD ---
Author Organization [facility] Care Team Providers Care Flight Control Specialist Name Role Phone Katrin LIMON, Dr. Chandler Pryor Attending Unavailable Katrin LIMON, Dr. Chandler Pryor Referring Unavailable Vanessa, Mrs. Allison Bullock Primary Care Unavailab le Allison Mendez Ara Unavailable Unavailable Unavailable AICHHOLZ, EPIC CUPID ANALYST ALLISON Consulting Unavailable AICHHOLZ, EPIC CUPID ANALYST ALLISON Attending Unavailable AICHHOLZ, EPIC CUPID ANALYST ALLISON Primary Care Unavailable AICHHOLZ, EPIC CUPID ANALYST ALLISON Admitting Unavailable AICHHOLZ, EPIC CUPID ANALYST ALLISON Consulting Unavailable AICHHOLZ, EPIC CUPID ANALYST ALLISON Attending Unavailable AICHHOLZ, EPIC CUPID ANALYST ALLISON Primary Care Unavailable AICHHOLZ, EPIC CUPID ANALYST ALLISON Admitting Unavailable AICHHOLZ, EPIC CUPID ANALYST ALLISON Consulting Unavailable AICHHOLZ, EPIC CUPID ANALYST ALLISON Attending Unavailable AICHHOLZ, EPIC CUPID ANALYST ALLISON Admitting Unavailable AICHHOLZ, EPIC CUPID ANALYST ALLISON Primary Care Unavailable FAWWAD, MEI H Admitting Unavailable AICHHOLZ, EPIC CUPID ANALYST ALLISON Primary Care Unavailable VERO WILSON Consulting Unavailable FAWWAD, MEI H Attending Unavailable FAWWAD, MEI H Consulting Unavailable AICHHOLZ, EPIC CUPID ANALYST ALLISON Consulting Unavailable AICHHOLZ, EPIC CUPID ANALYST ALLISON Attending Unavailable AICHHOLZ, EPIC CUPID ANALYST ALLISON Admitting Unavailable AICHHOLZ, EPIC CUPID ANALYST ALLISON Primary Care Unavailable DR ZINA GREGORY Consulting Unavailable JESSE HATCH Attending Unavailable JESSE HATCH Admitting Unavailable AICHHOLZ, EPIC CUPID ANALYST ALLISON Primary Care Unavailable JESSE HATCH Consulting Unavailable AICHHOLZ, EPIC CUPID ANALYST ALLISON Primary Care Unavailable JESSE HATCH Attending Unavailable JESSE HATCH Admitting Unavailable JESSE HATCH Consulting Unavailable Lali Patel Consulting Unavailable AICHHOLZ, EPIC CUPID ANALYST ALLISON Primary Care Unavailable WEST, DR VERO De Oliveira Consulting Unavailable PAY ., DR PONCE Attending Unavailable PAY ., DR PONCE Admitting Unavailable PAY ., DR PONCE Consulting Unavailable AICHHOLZ, EPIC CUPID ANALYST ALLISON Admitting Unavailable AICHHOLZ, EPIC CUPID ANALYST ALLISON Attending Unavailable AICHHOLZ, EPIC CUPID ANALYST ALLISON Primary Care Unavailable AICHHOLZ, EPIC CUPID ANALYST ALLISON Attending Unavailable AICHHOLZ, EPIC CUPID ANALYST ALLISON Admitting Unavailable AICHHOLZ, EPIC CUPID ANALYST ALLISON Primary Care Unavailable [place], DR VERO De Oliveira Consulting Unavailable AICHHOLZ, EPIC CUPID ANALYST ALLISON Consulting Unavailable AICHHOLZ, EPIC CUPID ANALYST ALLISON Primary Care Unavailable [place], DR VERO De Oliveira Consulting Unavailable FAWWAD, MEI H Attending Unavailable FAWWAD, MEI H Admitting Unavailable FAWWAD, MEI H Consulting Unavailable AICHHOLZ, EPIC CUPID ANALYST ALLISON Admitting Unavailable AICHHOLZ, EPIC CUPID ANALYST ALLISON Primary Care Unavailable AICHHOLZ, EPIC CUPID ANALYST ALLISON Consulting Unavailable AICHHOLZ, EPIC CUPID ANALYST ALLISON Attending Unavailable AICHHOLZ, EPIC CUPID ANALYST ALLISON Admitting Unavailable AICHHOLZ, EPIC CUPID ANALYST ALLISON Primary Care Unavailable AICHHOLZ, EPIC CUPID ANALYST ALLISON Consulting Unavailable AICHHOLZ, EPIC CUPID ANALYST ALLISON Attending Unavailable Unavailable Primary Care Provider Unavailabl e Aichholz TEACHERS AIDE-Allison RESTREPO Primary Care Provider AICHHOLZ, ALLISON Attending Unavailable AICHHOLZ, ALLISON Attending Unavailable JOANN MAHMOOD Referring Unavailable AICHHOLZ, ALLISON J Primary Care Unavailable TAQUERIA SOLIS Referring Unavailable AICHHOLZ, ALLISON J Primary Care Unavailable ALBERTO MARCUS Referring Unavaila ble AICHHOLZ, ALLISON ARA Referring Unavailable ALBERTO MARCUS Attending Unavaila ble Unavailable Primary Care Provider Unavailabl e Allergies Allergy Classification Reported Allergen(s) Allergy Type Date of Onset Reaction(s) Facility (6 sources) gabapentin; Translations: [gabapentin] Drug Allergy 2 Other: See Comments [facility] (4 sources) hydroCHLOROthiaz ney; Translations: [hydroCHLOROthia zide CAPS] Drug Allergy 2 Other: See Comments [facility] (1 source) gabapentin Drug Allergy [facility] (3 sources) hydroCHLOROthiaz ney; Translations: [HYDROCHLOROTHIA ZIDE] Drug Allergy 4 [facility] Medications Current Medications Medication Drug Class(es) Dates Sig (Normalized) Sig (Original) Aspirin (4 sources) Platelet Aggregation Inhibitor, Nonsteroidal Anti-inflammatory Drug take 1 capsule by mouth in the morning aspirin 81 mg capsule Take 81 mg by mouth in the morning. 0 Active aspirin 81 mg ca p take 0.5 tablet by mouth twice d aily Aspirin 325 MG Oral Tablet Delayed Release 1/2 tablet twice daily Quantity: 90 Refills: 3 Ordered: 30-Jun-2022 DO Active atorvastatin 10 mg oral tablet (3 sources) HMG-CoA Reductase Inhibitor Start: 11-26-2022 atorvastatin (LIPITOR) 10 mg tablet Take 10 mg by mouth. 0 11/26/2022 Active Comment on above: Take 10 mg by mouth. busPIRone hydrochloride 10 mg oral tablet (4 sources) Start: 01-20-2023 take 1 tablet by [...] hours. cyclobenzaprine hydrochloride 10 mg oral tablet (5 sources) Muscle Relaxant Start: 022 cyclobenzaprine (FLEXERIL) 10 mg tablet 1 (one) time each day at the same time. 0 06/10/2021 Active Comment on above: 1 (one) time each da y at the same time. doxepin hydrochloride 10 mg oral capsule (3 sources) Tricyclic Antidepressant Start: 023 doxepin capsule 10 mg Take 10-20 mg by mouth daily at bedtime. 0 11/21/2022 Active Comment on above: Take 10-20 mg by grzegorz th daily at bedtime. levothyroxine sodium 0.15 mg oral tablet (5 sources) l-Thyroxine Start: 023 take 1 tablet by mouth every two hours in the morning levothyroxine (SYNTHROID) 150 mcg tablet TAKE 1 TABLET BY MOUTH 2 (TWO) HOURS prior to any food/drink/meds first thing IN THE MORNING 0 01/20/2023 Active Start: 01-01-2021 take 1 tablet by grzegorz th in the morning levothyroxine (SYNTHROID, LEVOTHROID) 125 MCG tablet Take 1 tablet (125 mcg total) by mouth in the morning. 0 07/08/2021 Active Comment on above: TAKE 1 TABLET BY GRZEGORZ TH 2 (TWO) HOURS prior to any food/drink/meds first thing IN THE MORNING 3 ml liraglutide 6 mg/ml pen injector (4 sources) GLP-1 Receptor Agonist Start: 01-20-2023 VICTOZA 3-ROME 0.6 mg/0.1 mL (18 mg/3 mL) INJECT 1.8mg SUBCUTANEOUSLY DAILY 0 01/20/2023 Active VICTOZA 3-ROME 0. 6 mg/0.1 mL (18 mg/3 mL) pen injector Inject 0.3 mL (1.8 mg total) under the skin in the morning. 0 Active inject 1.8 mg by sub cutaneous injection once daily Victoza 18 MG/3ML Subcutaneous Solution Pen-injector INJECT 1.8 MG SUBCUTANEOUSLY EVERY DAY Quantity: 0 Refills: 0 Ordered: 30-Jun-2022 DO Active Comment on above: INJECT 1.8mg SUBCUTA NEOUSLY DAILY losartan potassium 25 mg oral tablet (6 sources) Angiotensin 2 Receptor Maikel Start: take 1 tablet by mouth in the morning losartan (COZAAR) 25 mg tablet Take 1 tablet (25 mg total) by mouth in the morning. 0 07/09/2021 Active losartan (COZAAR ) 50 mg tablet 1 (one) time each day at the same time. 0 Active Comment on above: 1 (one) time each da y at the same time. magnesium gluconate 500 mg oral tablet (3 sources) magnesium glucon ate (MAG-G) 27 mg (500 mg) tab Take by mouth once daily. Twice daily 0 Active take 1 tablet by mouth at bedtim e magnesium gluconate (MAGONATE) 500 mg tablet tablet Take 1 tablet (500 mg total) by mouth in the morning and at bedtime. 0 Active Comment on above: Take by mouth once d aily. Twice daily meclizine hydrochloride 25 m g oral tablet (4 sources) Antiemetic meclizine (ANTIV ERT) 25 mg tab 1 (one) time each day at the same time. 0 Active take 0.5 tablet by m outh twice daily as needed for dizziness meclizine (ANTIVERT) 25 mg tablet Take 0 .5 tablets (12.5 mg total) by mouth 2 (two) times a day as needed for dizziness. 0 Active Meclizine HCl - 25 MG Oral Tablet TAKE DIRECTED. Quantity: 0 Refills: 0 Ordered: 30-Jun-2022 DO Active Comment on above: 1 (one) time each da y at the same time. metFORMIN hydrochloride 500 mg oral tablet (4 sources) Biguanide Start: 1 metFORMIN (GLUCOPHAGE) 500 mg tablet 1 (one) time each day at the same time. 0 07/03/2021 Active Comment on above: 1 (one) time each da y at the same time. riboflavin 100 mg oral tablet (1 source) take 2 tablets by mouth in the morning, then take 2 tablets by mouth at bedtime riboflavin, vitamin B2, 100 mg tablet Take 2 tablets (200 mg total) by mouth in the morning and 2 tablets (200 mg total) before bedtime. 0 Active sertraline 100 mg oral tablet (2 sources) Serotonin Reuptake Inhibitor Start: 3 take 1 tablet by mouth in the morning sertraline (ZOLOFT) 100 mg tablet Take 1 tablet (100 mg total) by mouth in the morning. 0 03/31/2023 Active take 1 tablet by mouth once brian y Sertraline HCl - 100 MG Oral Tablet TAKE 1 TABLET DAILY. Quantity: 0 Refills: 0 Ordered: 30-Jun-2022 DO Active Turmeric extract (4 sources) take 500 mg by mouth at bedtime TURMERIC ORAL Take 500 mg by mouth in the morning and at bedtime. 0 Active TURMERIC ORAL Ta ke by mouth. 1-2 per day 0 Active take 1 tablet by mouth once brian y Turmeric 500 MG Oral Tablet 1 tablet once daily Quantity: 0 Refills: 0 Ordered: 30-Jun-2022 DO Active Comment on above: Take by mouth. 1-2 p er day 24 hr verapamil hydrochloride 180 mg extended release oral capsule (4 sources) Calcium Channel Maikel Start: 01-20-2023 take 1 capsule by mouth every hour verapamil ER 180 mg 24 hr capsule Take 1 capsule by mouth every afternoon. 0 01/20/2023 Active Start: 07-09-2021 take 1 capsule by mo [facility] every twenty-four hours in the morning verapamiL (VERELAN) 180 mg 24 hr capsule Take 1 capsule (180 mg total) by mouth in the morning. 0 07/09/2021 Active Start: 04-03-2021 take 1 capsule by mouth once d aily Verapamil HCl ER 180 MG Oral Capsule Extended Release 24 Hour TAKE 1 CAPSULE Daily Quantity: 0 Refills: 0 Ordered: 29-Apr-2021 DO Start : 03-Apr-2021 Active Comment on above: Take 1 capsule by [facility] every afternoon. Completed/Discontinued Medications Medication Drug Class(es) Dates Sig (Normalized) Sig (Original) amitriptyline hydrochloride 25 mg oral tablet (1 source) Tricyclic Antidepressant Amitriptyline HCl - 25 MG Oral Tablet 1/2 to 1 tab at night Quantity: 0 Refills: 0 Ordered: 30-Jun-2022 DO Active Problems Active Problems Problem Classification Problem Date [...] Systolic murmur; Translations: [Undiagnosed cardiac murmurs] Episodic Nutritional deficiencies (2 sources) Vitamin D deficiency; Translations: [Vitamin D deficiency, unspecified] Onset: 02-17-2023 02-17-2023 Chronic Osteoarthritis (1 source) Unilateral primary osteoarthritis, right knee; Translations: [UNI PRIM OSTEOARTHRITIS RT KNEE] Onset: 12-20-2021 Chronic Other connective tissue disease (1 source) Fibromyalgia; Translations: [Fibromyalgia] 02-17-2023 Episodic Other endocrine disorders (4 sources) Other hypoglycemia; Translations: [OTHER HYPOGLYCEMIA] Onset: 10-01-2021 Chronic Other female genital disorders (1 source) Atypical endometrial hyperplasia; 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]] Onset: 07-29-2021 09-03-2021 Chronic Other female genital disorders (1 source) Personal history of other diseases of the female genital tract; Translations: [Personal history of other diseases of the female genital tract] Onset: 07-13-2023 Episodic Other hematologic conditions (1 source) ESR raised; Translations: [Elevated erythrocyte sedimentation rate] 02-17-2023 Episodic Other lower respiratory disease (1 [...] OBES D/T EXCESS JOHN] Onset: 10-03-2021 Chronic Other screening for suspected conditions (not mental disorders or infectious disease) (2 sources) Partial thromboplastin time increased; Translations: [Abnormal coagulation profile] Onset: 07-24-2023 07-15-2023 Episodic Other upper respiratory disease (1 source) Epistaxis; Translations: [Epistaxis] Onset: 07-13-2023 Episodic Residual codes; unclassified (1 source) Acquired absence of both cervix and uterus; Translations: [Acquired absence of both cervix and uterus] Onset: 07-13-2023 Episodic Residual codes; unclassified (1 source) Family history of autism; Translations: [Family history of other mental and behavioral disorders] 08-31-2023 Episodic Thyroid disorders (5 sources) Hypothyroidism, unspecified; Translations: [HYPOTHYROIDISM UNSPECIFIED] Onset: 10-03-2021 Chronic Unclassified (3 sources) LOW BACK PAIN, UNSPECIFIED; Translations: [LOW BACK PAIN, UNSPECIFIED] Onset: 08-13-2021 Past or Other Problems Problem Classification Problem Date Documented Date Episodic/Chronic Cardiac dysrhythmias (1 source) Tachycardia, unspecified; Translations: [TACHYCARDIA UNSPECIFIED] Onset: 01-24-2022 Episodic E Codes: Cut/pierceb (1 source) Contact with unspecified sharp object(s), initial encounter; Translations: [CNTC UNSPECIFIED SHARP OBJECT INIT] Onset: 03-05-2022 Episodic Malaise and fatigue (3 sources) Fatigue; Translations: [Other malaise and fatigue] Onset: 02-17-2023 02-17-2023 Episodic Mood disorders (1 source) Mood disorders Onset: 04-14-2023 04-14-2023 Open wounds of head; neck; and trunk (4 sources) Puncture wound without foreign body of lip, initial encounter; Translations: [PUNCT WOUND W/O FB LIP INITIAL ENC] Onset: 03-04-2022 Episodic Other aftercare (1 source) Other usp (current) drug therapy; Translations: [OTH ARTIST SUSPECT CURRENT DRUG THERAPY] Onset: 03-05-2022 Episodic Other aftercare (1 source) detention (current) use of oral hypoglycemic drugs; Translations: [ARTIST SUSPECT USE ORAL HYPOGLYCEMIC DX] Onset: 01-16-2022 Episodic Other circulatory disease (1 source) Personal history of transient ischemic attack (TIA), and cerebral infarction without residual deficits; Translations: [PERS HX TIA AND CI NO RESID DEFICIT] Onset: 01-16-2022 Episodic Other connective tissue disease (1 source) Patellar tendinitis, right knee; Translations: [PATELLAR TENDINITIS RIGHT KNEE] Onset: 12-20-2021 Episodic Other connective tissue disease (1 source) Fibromyalgia; Translations: [Fibromyalgia] Onset: 02-17-2023 Episodic Other hematologic conditions (4 sources) Abnormality of plasma protein, unspecified; Translations: [ABNORMALITY PLASMA PROTEIN UNS] Onset: 10-29-2021 Episodic Other hematologic conditions (1 source) Elevated erythrocyte sedimentation rate; Translations: [Sedimentation rate elevation] Onset: 02-17-2023 Episodic Other nervous system disorders (5 sources) Paresthesia of skin; Translations: [PARESTHESIA OF SKIN] Onset: 01-17-2022 Episodic Other nervous system disorders (4 sources) Anesthesia of skin; Translations: [ANESTHESIA OF SKIN] Onset: 01-15-2022 Episodic Other non-traumatic joint disorders (4 sources) Pain in right knee; Translations: [PAIN IN RIGHT KNEE] Onset: 12-18-2021 Episodic Residual codes; unclassified (1 source) Family history of Von Willebrand disease; Translations: [Family history of diseases of the blood and blood-forming organs and certain disorders involving the immune mechanism] Onset: 04-14-2023 04-14-2023 Episodic Residual codes; unclassified (1 source) Family history of diseases of the blood and blood-forming organs and certain disorders involving the immune mechanism; Translations: [Family history of diseases of the blood and blood-forming organs and certain disorders involving the immune mechanism] Onset: 04-14-2023 Episodic Unclassified (1 source) Never smoked tobacco; Translations: [Never smoker] Unclassified (1 source) LOW BACK PAIN, UNSPECIFIED; Translations: [LOW BACK PAIN, UNSPECIFIED] Onset: 08-13-2021 Results Test Name Value Interpretation Reference Range Facility 50/50 MIX STUDYon 07-24-2023 aPTT Coag (Bld) [Time] 42 s High 26-37 [facility] Comment on above: Performed By: #### P INR, 60678-4 #### [facility] ([id number]) [address] [place] [address] #### CMP, FEPR, 2276-4, CBCA #### [facility] ([id number]) [address], [address] [place] [address] aPTT Coag (Bld) [Time] 35 s Normal 26-37 [facility] Comment on above: Performed By: #### P INR, 79396-5 #### [facility] ([id number]) [address] [place] [address]2539 #### CMP, FEPR, 2276-4, CBCA #### [facility] ([id number]) [address], [address] [place] [address] PT Coag (PPP) [Time] 11.8 s Normal 9.8-13.2 [facility] Comment on above: Performed By: #### P INR, 09622-5 #### [facility] ([id number]) [address] [place] [address]207 #### CMP, FEPR, 6-4, CBCA #### [facility] ([id number]) [address], [address] [place] [address] Coagulation factor IX activi ty actual/normal Coag (PPP) [Relative time]on 07-24-2023 FACTOR 9 ASSAY 134 % act Normal 65-150 [facility] Comment on above: Performed By: #### P INR, 77176-4 #### [facility] ([id number]) [address] [place] [address]1431 #### CMP, FEPR, 2275-4, CBCA #### [facility] ([id number]) [address], [address] [place] [address] Coagulation factor VIII acti vity actual/normal Coag (PPP) [Relative time]on 07-24-2023 FACTOR 8 ASSAY 120 % act Normal 50-150 [facility] Comment on above: Performed By: #### P INR, 37622-2 #### [facility] ([id number]) [address] [place] [address] #### CMP, FEPR, 2275-4, CBCA #### [facility] ([id number]) [address], [address] [place] [address] Coagulation factor XI activi ty actual/normal Coag (PPP) [Relative time]on 07-24-2023 FACTOR 11 ASSAY 153 % act High 65-150 [facility] Comment on above: Performed By: #### P INR, 61316-9 #### [facility] ([id number]) [address] [place] [address] #### CMP, FEPR, 2276-4, CBCA #### [facility] ([id number]) [address], [address] [place] [address] Coagulation factor XII activ ity actual/normal Coag (PPP) [Relative time]on 07-24-2023 FACTOR 12 ASSAY 86 % act Normal 50-150 [facility] Comment on above: Performed By: #### P INR, 81361-5 #### [facility] ([id number]) [address] [place] [address] #### CMP, FEPR, 6-4, CBCA #### [facility] ([id number]) [address], [address] [place] [address] [facility] ORDERon 024 TEST NAME [id number] VWF COLLAGEN III BINDING NACIT PLASMA Normal [facility] Comment on above: Result Comment: Maria Alejandra ected on 07/14 AT 1430: Previously reported as [id number] VWF COLLAGEN III BINDING Performed By: #### P INR, 84065-4 #### [facility] ([id number]) [address] [place] [address]241 #### CMP, FEPR, 6-4, CBCA #### [facility] ([id number]) [address], [address] [place] [address] TEST NAME [id number] VWF GPIBM ACTIVITY NACIT PLASMA Normal [facility] Comment on above: Performed By: #### P INR, 34122-8 #### [facility] ([id number]) [address] [place] [address]7970 #### CMP, FEPR, 2276-4, CBCA #### [facility] ([id number]) [address], [address] [place] [address] TEST RESULT SEE NOTE Normal [facility] Comment on above: Result Comment: NOTE Test name Result Flag Units RefIntvl VWF Collagen III Binding 110 IU/dL 50-203 For additional information, please visit [email or web address] This test was developed and its performance characteristics determined by [facility]. It has not been cleared or approved by the [place] Food and Drug Administration. This test is used for clinical purposes. It should not be regarded as investigational or for research. This laboratory is certified under the Clinical Laboratory Improvement Amendments (CLIA) as qualified to perform high complexity clinical laboratory testing. Performed by: [facility]. [address] [place] [address] Performed By: #### P INR, 01032-5 #### [facility] ([id number]) [address] [place] [address], [place] [address] #### CMP, FEPR, 2276-4, CBCA #### [facility] ([id number]) [address] [place] [address], [address] [place] [address] Result Comment: NOTE Test name Result Flag Units RefIntvl VWF GPIbM Activity 86 IU/dL 52-180 For additional information, please visit [email or web address] This test was developed and its performance characteristics determined by [facility]. It has not been cleared or approved by the [place] Food and Drug Administration. This test is used for clinical purposes. It should not be regarded as investigational or for research. This laboratory is certified under the Clinical Laboratory Improvement Amendments (CLIA) as qualified to perform high complexity clinical laboratory testing. Performed by: [facility]. [address] [place] [address] CBC AND AUTO DIFFon 07-13-19 24 ABSOLUTE BASOPHIL 0.0 X10E9/L Normal 0.0-0.2 [facility] Comment on above: Performed By: #### P INR, 46693-5 #### [facility] ([id number]) [address] [place] [address] #### CMP, FEPR, 2276-4, CBCA #### [facility] ([id number]) [address] [facility] [facility] [place] [address] ABSOLUTE NEUTROPHIL 5.0 X10E9/L Normal 1.5-6.6 [facility] Comment on above: Performed By: #### P INR, 18041-7 #### [facility] ([id number]) [address] [place] [address]001 #### CMP, FEPR, 2275-4, CBCA #### [facility] ([id number]) [address] [facility] [facility] [place] [address] Basophils/100 WBC (Bld) 0.3 % Normal [facility] Comment on above: Performed By: #### P INR, 51312-2 #### [facility] ([id number]) [address] [place] [address] #### CMP, FEPR, 6-4, CBCA #### [facility] ([id number]) [address] [facility] [place] [address] Eosinophils (Bld) [#/Vol] 0.1 10*3/uL Normal 0.0-0.4 [facility] Comment on above: Performed By: #### P INR, 00678-7 #### [facility] ([id number]) [address] [place] [address] 21856 #### CMP, FEPR, 6-4, CBCA #### [facility] ([id number]) [address] [facility] [place] [address] Eosinophils/100 WBC (Bld) 1.3 % Normal [facility] Comment on above: Performed By: #### P INR, 23587-2 #### [facility] ([id number]) [address] [place] [address] 21585 #### CMP, FEPR, 2276-4, CBCA #### [facility] ([id number]) [address], [address] [place] [address] Erythrocyte distribution width (RBC) [Ratio] 13.2 % Normal 11.5-15.0 [facility] Comment on above: Performed By: #### P INR, 97476-7 #### [facility] ([id number]) [address] [place] [address] 66751 #### CMP, FEPR, 6-4, CBCA #### [facility] ([id number]) [address] [facility] [place] [address] Hematocrit (Bld) [Volume fraction] 42.4 % Normal 35-47 [facility] Comment on above: Performed By: #### P INR, 73263-4 #### [facility] ([id number]) [address] [place] [address]199 #### CMP, FEPR, 2276-4, CBCA #### [facility] ([id number]) [address], [address] [place] [address] Hemoglobin (Bld) [Mass/Vol] 13.9 g/dL Normal 11.7-15.5 [facility] Comment on above: Performed By: #### P INR, 80402-3 #### [facility] ([id number]) [address] [place] [address] 08988 #### CMP, FEPR, 2276-4, CBCA #### [facility] ([id number]) [address], [address] [place] [address] Lymphocytes (Bld) [#/Vol] 2.0 10*3/uL Normal 1.0-3.5 [facility] Comment on above: Performed By: #### P INR, 33516-2 #### [facility] ([id number]) [address] [place] [address] 38662 #### CMP, FEPR, 2276-4, CBCA #### [facility] ([id number]) [address] [facility], [address] [place] [address] Lymphocytes/100 WBC (Bld) 26.7 % Normal [facility] Comment on above: Performed By: #### P INR, 42667-1 #### [facility] ([id number]) [address] [place] [address] 30579 #### CMP, FEPR, 2276-4, CBCA #### [facility] ([id number]) [address] [facility], [facility] [address] [place] [address] MCH (RBC) [Entitic mass] 29.6 pg Normal 27-34 [facility] Comment on above: Performed By: #### P INR, 37981-6 #### [facility] ([id number]) [address] [place] [address] 20346 #### CMP, FEPR, 6-4, CBCA #### [facility] ([id number]) [address] [facility] [place] [address] MCHC (RBC) [Mass/Vol] 32.8 g/dL Normal 32-36 [facility] Comment on above: Performed By: #### P INR, 87614-1 #### [facility] ([id number]) [address] [place] [address] 74856 #### CMP, FEPR, 6-4, CBCA #### [facility] ([id number]) [address], [address] [place] [address] MCV (RBC) [Entitic vol] 90 fL Normal 80-100 [facility] Comment on above: Performed By: #### P INR, 41738-7 #### [facility] ([id number]) [address] [place] [address] 55781 #### CMP, FEPR, 6-4, CBCA #### [facility] ([id number]) [address], [address] [place] [address] Monocytes (Bld) [#/Vol] 0.5 10*3/uL Normal 0-0.9 [facility] Comment on above: Performed By: #### P INR, 20716-6 #### [facility] ([id number]) [address] [place] [address] 79997 #### CMP, FEPR, 2275-4, CBCA #### [facility] ([id number]) [address], [address] [place] [address] Monocytes/100 WBC (Bld) 6.9 % Normal [facility] Comment on above: Performed By: #### P INR, 66896-6 #### [facility] ([id number]) [address] [place] [address] 54756 #### CMP, FEPR, 6-4, CBCA #### [facility] ([id number]) [address], [address] [place] [address] Neutrophils/100 WBC (Bld) 64.8 % Normal [facility] Comment on above: Performed By: #### P INR, 48145-7 #### [facility] ([id number]) [address] [place] [address] 88146 #### CMP, FEPR, 6-4, CBCA #### [facility] ([id number]) [address] [place] [address] Platelet mean volume (Bld) [Entitic vol] 11.5 fL Normal 7-12 [facility] Comment on above: Performed By: #### P INR, 96824-1 #### [facility] ([id number]) [address] [place] [address] 67153 #### CMP, FEPR, 2276-4, CBCA #### [facility] ([id number]) [address] [facility] [place] [address] Platelets (Bld) [#/Vol] 205 10*3/uL Normal 150-450 [facility] Comment on above: Performed By: #### P INR, 98184-6 #### [facility] ([id number]) [address] [place] [address] 94765 #### CMP, FEPR, 2276-4, CBCA #### [facility] ([id number]) [address] [facility] [place] [address] RBC COUNT 4.70 X10E12/L Normal 3.80-5.20 [facility] Comment on above: Performed By: #### P INR, 26164-0 #### [facility] ([id number]) [address] [place] [address] 08141 #### CMP, FEPR, 2276-4, CBCA #### [facility] ([id number]) [address] [place] [address] WBC (Bld) [#/Vol] 7.7 10*3/uL Normal 4.0-11.0 [facility] Comment on above: Performed By: #### P INR, 13385-5 #### [facility] ([id number]) [address] [place] [address] 64672 #### CMP, FEPR, 2276-4, CBCA #### [facility] ([id number]) [address] [facility] [place] [address] COMPREHENSIVE METABOLIC PANE Drew 07-13-2023 Albumin [Mass/Vol] 4.6 g/dL Normal 3.2-5.3 [facility] Comment on above: Performed By: #### P INR, 18020-0 #### [facility] ([id number]) [address] [place] [address] 74094 #### CMP, FEPR, 2276-4, CBCA #### [facility] ([id number]) [address] [facility] [place] [address] ALP [Catalytic activity/Vol] 118 U/L Normal 39-130 [facility] Comment on above: Performed By: #### P INR, 37242-2 #### [facility] ([id number]) [address] [place] [address] 84698 #### CMP, FEPR, 2275-4, CBCA #### [facility] ([id number]) [address] [facility] [place] [address] ALT [Catalytic activity/Vol] 12 U/L Normal 0-31 [facility] Comment on above: Performed By: #### P INR, 57974-7 #### [facility] ([id number]) [address] [place] [address] 94740 #### CMP, FEPR, 6-4, CBCA #### [facility] ([id number]) [address] [facility] [place] [address] Anion gap [Moles/Vol] 10 mmol/L Normal 5-15 [facility] Comment on above: Performed By: #### P INR, 84112-4 #### [facility] ([id number]) [address] [place] [address] 56715 #### CMP, FEPR, 2276-4, CBCA #### [facility] ([id number]) [address] [facility] [place] [address] AST [Catalytic activity/Vol] 13 U/L Normal 0-41 [facility] Comment on above: Performed By: #### P INR, 59077-9 #### [facility] ([id number]) [address] [place] [address] 11764 #### CMP, FEPR, 6-4, CBCA #### [facility] ([id number]) [address] [facility] [place] [address] Bilirubin [Mass/Vol] 0.4 mg/dL Normal 0.3-1.2 [facility] Comment on above: Performed By: #### P INR, 15580-8 #### [facility] ([id number]) [address] [place] [address] 50762 #### CMP, FEPR, 64, CBCA #### [facility] ([id number]) [facility] [facility] [place] [address] Calcium [Mass/Vol] 9.8 mg/dL Normal 8.5-10.5 [facility] Comment on above: Performed By: #### P INR, 25406-3 #### [facility] ([id number]) [address] [place] [address] 80837 #### CMP, FEPR, 64, CBCA #### [facility] ([id number]) [address] [facility] [place] [address] Chloride [Moles/Vol] 105 mmol/L Normal 98-109 [facility] Comment on above: Performed By: #### P INR, 73512-8 #### [facility] ([id number]) [address] [place] [address] 65432 #### CMP, FEPR, 2275-4, CBCA #### [facility] ([id number]) [address] [place] [address] CO2 [Moles/Vol] 27 mmol/L Normal 22-32 [facility] Comment on above: Performed By: #### P INR, 78654-0 #### [facility] ([id number]) [address] [place] [address] 22260 #### CMP, FEPR, 2276-4, CBCA #### [facility] ([id number]) [address] [place] [address] Creatinine [Mass/Vol] 0.75 mg/dL Normal 0.40-1.00 [facility] Comment on above: Result Comment: METH OD TRACEABLE TO IDMS STANDARD Performed By: #### P INR, 16526-2 #### [facility] ([id number]) [address] [place] [address] 12405 #### CMP, FEPR, 2276-4, CBCA #### [facility] ([id number]) [address] [place] [address] eGFR (CKD-EPI) NON-RACE DEPENDENT >90 Normal >59 [facility] Comment on above: Result Comment: Reported eGFR is based on the CKD-EPI 2020 equation that does not use a race coefficient. Performed By: #### P INR, 68912-4 #### [facility] ([id number]) [address] [place] [address] 67387 #### CMP, FEPR, 2276-4, CBCA #### [facility] ([id number]) [address] [place] [address] Glucose [Mass/Vol] 87 mg/dL Normal 65-99 [facility] Comment on above: Performed By: #### P INR, 29454-3 #### [facility] ([id number]) [address] [place] [address] 89990 #### CMP, FEPR, 2276-4, CBCA #### [facility] ([id number]) [address] [facility] [place] [address] Potassium [Moles/Vol] 4.0 mmol/L Normal 3.5-5.0 [facility] Comment on above: Performed By: #### P INR, 82579-7 #### [facility] ([id number]) [address] [place] [address] 96868 #### CMP, FEPR, 2276-4, CBCA #### [facility] ([id number]) [address] [facility] [place] [address] Protein [Mass/Vol] 7.7 g/dL Normal 6.0-8.0 [facility] Comment on above: Performed By: #### P INR, 52187-9 #### [facility] ([id number]) [address] [place] [address] 16242 #### CMP, FEPR, 6-4, CBCA #### [facility] ([id number]) [address] [facility] [place] [address] Sodium [Moles/Vol] 142 mmol/L Normal 134-146 [facility] Comment on above: Performed By: #### P INR, 24867-0 #### [facility] ([id number]) [address] [place] [address] 73503 #### CMP, FEPR, 2276-4, CBCA #### [facility] ([id number]) [address] [facility] [place] [address] Urea nitrogen [Mass/Vol] 13 mg/dL Normal 5-23 [facility] Comment on above: Performed By: #### P INR, 26049-7 #### [facility] ([id number]) [address] [place] [address] 75257 #### CMP, FEPR, 6-4, CBCA #### [facility] ([id number]) [address] [place] [address] Coagulation factor VIII acti vity actual/normal Coag (PPP) [Relative time]on 07-13-2023 FACTOR 8 ASSAY 97 % act Normal 50-150 [facility] Comment on above: Performed By: #### P INR, 18913-0 #### [facility] ([id number]) [address] [place] [address] 63968 #### CMP, FEPR, 6-4, CBCA #### [facility] ([id number]) [address] [facility] [place] [address] FERRITINon 07-13-2023 Ferritin [Mass/Vol] 60 ng/mL Normal 11-307 [facility] Comment on above: Performed By: #### P INR, 42075-4 #### [facility] ([id number]) [address] [place] [address] 60384 #### CMP, FEPR, 2275-4, CBCA #### [facility] ([id number]) [address] [facility] [place] [address] IRON PROFILEon 07-13-2023 Iron [Mass/Vol] 66 ug/dL Normal 50-170 [facility] Comment on above: Performed By: #### P INR, 84062-9 #### [facility] ([id number]) [address] [place] [address] 43739 #### CMP, FEPR, 6-4, CBCA #### [facility] ([id number]) [address] [facility] [place] [address] IRON BINDING 318 ug/dL Normal 250-425 [facility] Comment on above: Performed By: #### P INR, 96907-0 #### [facility] ([id number]) [address] [place] [address] 71997 #### CMP, FEPR, 6-4, CBCA #### [facility] ([id number]) [address] [facility] [place] [address] IRON SATURATION 21 % SATURATION Normal 15-50 [facility] Comment on above: Performed By: #### P INR, 23074-2 #### [facility] ([id number]) [address] [place] [address] 74116 #### CMP, FEPR, 2275-, CBCA #### [facility] ([id number]) [address] [facility] [place] [address] Laboratory comment Aftab (Repo rt)on 07-13-2023 UNLISTED LAB TEST Sent to reference lab Normal [facility] Comment on above: Performed By: #### A GO #### [facility] ([id number]) [address] [place] [address] 43960 Performed By: #### P INR, 50258-3 #### [facility] ([id number]) [address] [place] [address] 37705 #### CMP, FEPR, 2275-4, CBCA #### [facility] ([id number]) [address] [place] [address] PROTIME AND INRon 07-13-2023 INR Coag (PPP) [Relative time] 1.0 {INR} Normal 0.8-1.1 [facility] Comment on above: Performed By: #### P INR, 09546-5 #### [facility] ([id number]) [address] [place] [address] 41767 #### CMP, FEPR, 6-4, CBCA #### [facility] ([id number]) [address] [place] [address] PT Coag (PPP) [Time] 12.0 s Normal 9.8-13.2 [facility] Comment on above: Result Comment: NEW REFERENCE RANGE Performed By: #### P INR, 58645-2 #### [facility] ([id number]) [address] [place] [address] #### CMP, FEPR, 2276-4, CBCA #### [facility] ([id number]) [address] [facility] [place] [address] aPTT Coag (PPP) [Time]on aPTT Coag (Bld) [Time] 46 s High 26-37 [facility] Comment on above: Result Comment: NEW REFERENCE RANGE Performed By: #### P INR, 89313-6 #### [facility] ([id number]) [address] [place] [address] #### CMP, FEPR, 2276-4, CBCA #### [facility] ([id number]) [address] [facility] [place] [address] vWf Ag IA Qn (PPP)on 024 VON [place] AG 118 % Normal 50-150 [facility] Comment on above: Result Comment: It has been reported that patients with group A,B or AB have a much greater mean vWf: Ag than blood group O individuals. Data from a study of 1300 normal blood donors showed: ABO type Reference range O 35.6-157.0 A 48.0-233.9 B 56.8-241.0 AB 63.8-238.2 Reference: BOYD Newsome, et.al. The effect of ABO blood group on the diagnosis of vWd. Blood 69:1691, 1987 Performed By: #### P INR, 21631-7 #### [facility] ([id number]) [address] [facility] [place] [address] #### CMP, FEPR, 2276-4, CBCA #### [facility] ([id number]) [address] [facility] [place] [address] vWf.activity actual/normal I A (PPP) [Relative ratio]on 07-13-2023 von Willebrand Factor Activity 88 % Normal 50-200 [facility] Comment on above: Performed By: #### P INR, 34533-2 #### [facility] ([id number]) [address] [place] [address] #### CMP, FEPR, 2276-4, CBCA #### [facility] ([id number]) [address] [facility] [place] [address] 25(OH)D3 [facility] 2022 25-hydroxyvitamin D3 [Mass/Vol] 14.6 ng/mL Low 31.0-80.0 [facility] Comment on above: Order Comment: Speci men Type: BLOOD SPECIMEN Ordering Facility: [facility] Address: [address] [place] [address] Result Comment: Clas sification of 25 [place] Vitamin D status: Deficiency/Insufficiency: < or = 30 ng/ml. Sufficiency/Optimal Levels: 31-80 ng/mL Toxicity: > 100 ng/mL. Test performed by chemiluminescent immunoassay. Performed By: #### 1 989-3 #### [facility] CLIA [id number] [address] [facility] [place] [address] [place] CBC W Auto Differential pane l (Bld)on 02-17-2023 Basophils (Bld) [#/Vol] 0.03 10*3/uL <0.11 k/uL [facility] Basophils/100 WBC (Bld) 0.3 % [facility] Differential cell count method Nom (Bld) Auto [facility] Eosinophils (Bld) [#/Vol] 0.12 10*3/uL <0.46 k/uL [facility] Eosinophils/100 WBC (Bld) 1.2 % [facility] Erythrocyte distribution width (RBC) [Ratio] 12.7 % 11.5 - 15.0 % [facility] Hematocrit (Bld) [Volume fraction] 44.5 % 36.0 - 46.0 % [facility] Hemoglobin (Bld) [Mass/Vol] 14.4 g/dL 11.5 - 15.5 g/dL [facility] Immature granulocytes (Bld) [#/Vol] 0.03 10*3/uL <0.10 k/uL [facility] Immature granulocytes/100 WBC (Bld) 0.3 % [facility] Lymphocytes (Bld) [#/Vol] 1.93 10*3/uL 1.00 - 4.00 k/uL [facility] Lymphocytes/100 WBC (Bld) 19.7 % [facility] MCH (RBC) [Entitic mass] 30.3 pg 26.0 - 34.0 pg [facility] MCHC (RBC) [Mass/Vol] 32.4 g/dL 30.5 - 36.0 g/dL [facility] MCV (RBC) [Entitic vol] 93.5 fL 80.0 - 100.0 fL [facility] Monocytes (Bld) [#/Vol] 0.78 10*3/uL <0.87 k/uL [facility] Monocytes/100 WBC (Bld) 7.9 % [facility] Neutrophils (Bld) [#/Vol] 6.93 10*3/uL 1.45 - 7.50 k/uL [facility] Neutrophils/100 WBC (Bld) 70.6 % [facility] Nucleated RBC (Bld) [#/Vol] <0.01 k/uL [facility] Nucleated RBC/100 WBC (Bld) [Ratio] 0.0 /100 WBC [facility] Platelet mean volume (Bld) [Entitic vol] 13.2 fL High 9.0 - 12.7 fL [facility] Platelets (Bld) [#/Vol] 245 10*3/uL 150 - 400 k/uL [facility] RBC (Bld) [#/Vol] 4.76 10*6/uL 3.90 - 5.2 0 m/uL [facility] WBC (Bld) [#/Vol] 9.82 10*3/uL 3.70 - 11. 00 k/uL [facility] Basophils (Bld) [#/Vol] 0.03 10*3/uL Normal <0.11 [facility] Comment on above: Order Comment: Speci men Type: BLOOD SPECIMEN Ordering Facility: [facility] Address: [address] [place] [address] Performed By: #### 5 7021-8 #### [facility] CLIA [id number] [address] [place] [address] [place] Basophils/100 WBC (Bld) 0.3 % Normal [facility] Comment on above: Order Comment: Speci men Type: BLOOD SPECIMEN Ordering Facility: [facility] Address: [address] [place] [address] Performed By: #### 5 7021-8 #### [facility] CLIA [id number] [address] [place] [address] [place] Differential cell count method Nom (Bld) Auto Normal [facility] Comment on above: Order Comment: Speci men Type: BLOOD SPECIMEN Ordering Facility: [facility] Address: [address] [place] [address] Performed By: #### 5 7021-8 #### [facility] CLIA [id number] [address] [place] [address] [place] Eosinophils (Bld) [#/Vol] 0.12 10*3/uL Normal <0.46 [facility] Comment on above: Order Comment: Speci men Type: BLOOD SPECIMEN Ordering Facility: [facility] Address: [address] [place] [address] Performed By: #### 5 7021-8 #### [facility] CLIA [id number] [address] [place] [address] [place] Eosinophils/100 WBC (Bld) 1.2 % Normal [facility] Comment on above: Order Comment: Speci men Type: BLOOD SPECIMEN Ordering Facility: [facility] Address: [address] [place] [address] Performed By: #### 5 7021-8 #### [facility] CLIA [id number] [address] [place] [address] [place] Erythrocyte distribution width (RBC) [Ratio] 12.7 % Normal 11.5-15.0 [facility] Comment on above: Order Comment: Speci men Type: BLOOD SPECIMEN Ordering Facility: [facility] Address: [address] [place] [address] Performed By: #### 5 7021-8 #### [facility] CLIA [id number] [address] [place] [address] [place] Hematocrit (Bld) [Volume fraction] 44.5 % Normal 36.0-46.0 [facility] Comment on above: Order Comment: Speci men Type: BLOOD SPECIMEN Ordering Facility: [facility] Address: [address] [place] [address] Performed By: #### 5 7021-8 #### [facility] CLIA [id number] [address] [place] [address] [place] Hemoglobin (Bld) [Mass/Vol] 14.4 g/dL Normal 11.5-15.5 [facility] Comment on above: Order Comment: Speci men Type: BLOOD SPECIMEN Ordering Facility: [facility] Address: [address] [place] [address] Performed By: #### 5 7021-8 #### [facility] CLIA [id number] [address] [place] [address] [place] Immature granulocytes (Bld) [#/Vol] 0.03 10*3/uL Normal <0.10 [facility] Comment on above: Order Comment: Speci men Type: BLOOD SPECIMEN Ordering Facility: [facility] Address: [address] [place] [address] Performed By: #### 5 7021-8 #### [facility] CLIA [id number] [address] [place] [address] [place] Immature granulocytes/100 WBC (Bld) 0.3 % Normal [facility] Comment on above: Order Comment: Speci men Type: BLOOD SPECIMEN Ordering Facility: [facility] Address: [address] [place] [address] Performed By: #### 5 7021-8 #### [facility] CLIA [id number] [address] [place] [address] [place] Lymphocytes (Bld) [#/Vol] 1.93 10*3/uL Normal 1.00-4.00 [facility] Comment on above: Order Comment: Speci men Type: BLOOD SPECIMEN Ordering Facility: [facility] Address: [address] [place] [address] Performed By: #### 5 7021-8 #### [facility] CLIA [id number] [address] [place] [address] [place] Lymphocytes/100 WBC (Bld) 19.7 % Normal [facility] Comment on above: Order Comment: Speci men Type: BLOOD SPECIMEN Ordering Facility: [facility] Address: [address] [place] [address] Performed By: #### 5 7021-8 #### [facility] CLIA [id number] [address] [place] [address] [place] MCH (RBC) [Entitic mass] 30.3 pg Normal 26.0-34.0 [facility] Comment on above: Order Comment: Speci men Type: BLOOD SPECIMEN Ordering Facility: [facility] Address: [address] [place] [address] Performed By: #### 5 7021-8 #### [facility] CLIA [id number] [address] [place] [address] [place] MCHC (RBC) [Mass/Vol] 32.4 g/dL Normal 30.5-36.0 [facility] Comment on above: Order Comment: Speci men Type: BLOOD SPECIMEN Ordering Facility: [facility] Address: [address] [place] [address] Performed By: #### 5 7021-8 #### [facility] CLIA [id number] [address] [place] [address] [place] MCV (RBC) [Entitic vol] 93.5 fL Normal 80.0-100.0 [facility] Comment on above: Order Comment: Speci men Type: BLOOD SPECIMEN Ordering Facility: [facility] Address: [address] [place] [address] Performed By: #### 5 7021-8 #### [facility] CLIA [id number] [address] [place] [address] [place] Monocytes (Bld) [#/Vol] 0.78 10*3/uL Normal <0.87 [facility] Comment on above: Order Comment: Speci men Type: BLOOD SPECIMEN Ordering Facility: [facility] Address: [address] [place] [address] Performed By: #### 5 7021-8 #### [facility] CLIA [id number] [address] [place] [address] [place] Monocytes/100 WBC (Bld) 7.9 % Normal [facility] Comment on above: Order Comment: Speci men Type: BLOOD SPECIMEN Ordering Facility: [facility] Address: [address] [place] [address] Performed By: #### 5 7021-8 #### [facility] CLIA [id number] [address] [place] [address] [place] Neutrophils (Bld) [#/Vol] 6.93 10*3/uL Normal 1.45-7.50 [facility] Comment on above: Order Comment: Speci men Type: BLOOD SPECIMEN Ordering Facility: [facility] Address: [address] [place] [address] Performed By: #### 5 7021-8 #### [facility] CLIA [id number] [address] [place] [address] [place] Neutrophils/100 WBC (Bld) 70.6 % Normal [facility] Comment on above: Order Comment: Speci men Type: BLOOD SPECIMEN Ordering Facility: [facility] Address: [address] [place] [address] Performed By: #### 5 7021-8 #### [facility] CLIA [id number] [address] [place] [address] [place] Nucleated RBC (Bld) [#/Vol] 10*3/uL Normal <0.01 [facility] Comment on above: Order Comment: Speci men Type: BLOOD SPECIMEN Ordering Facility: [facility] Address: [address] [place] [address] Performed By: #### 5 7021-8 #### [facility] CLIA [id number] [address] [place] [address] [place] Nucleated RBC/100 WBC (Bld) [Ratio] 0.0 /100 WBC Normal [facility] Comment on above: Order Comment: Speci men Type: BLOOD SPECIMEN Ordering Facility: [facility] Address: [address] [place] [address] Performed By: #### 5 7021-8 #### [facility] CLIA [id number] [address] [place] [address] [place] Platelet mean volume (Bld) [Entitic vol] 13.2 fL High 9.0-12.7 [facility] Comment on above: Order Comment: Speci men Type: BLOOD SPECIMEN Ordering Facility: [facility] Address: [address] [place] [address] Performed By: #### 5 7021-8 #### [facility] CLIA [id number] [address] [place] [address] [place] Platelets (Bld) [#/Vol] 245 10*3/uL Normal 150-400 [facility] Comment on above: Order Comment: Speci men Type: BLOOD SPECIMEN Ordering Facility: [facility] Address: [address] [place] [address] Result Comment: Resu lts checked and verified.No clot detected. Performed By: #### 5 7021-8 #### [facility] CLIA [id number] [address] [place] [address] [place] RBC (Bld) [#/Vol] 4.76 10*6/uL Normal 3.90-5.20 [facility] Comment on above: Order Comment: Speci men Type: BLOOD SPECIMEN Ordering Facility: [facility] Address: [address] [place] [address] Performed By: #### 5 7021-8 #### [facility] CLIA [id number] [address] [place] [address] [place] WBC (Bld) [#/Vol] 9.82 10*3/uL Normal 3.70-11.00 [facility] Comment on above: Order Comment: Speci men Type: BLOOD SPECIMEN Ordering Facility: [facility] Address: [address] [place] [address] Performed By: #### 5 7021-8 #### [facility] CLIA [id number] [address] [place] [address] [place] CNOVon 02-17-2023 CNOV Office Visit (DORIE ) DENISHA VELASCO ([id number]) 1985 F Date Time Provider Department 02/17/23 9:00 AM ALBERTO MARCUS During your visit today, we recorded the following information about you: Pulse Blood pressure Weight 96/minute 116/82 126.6 kg Alberto Marcus MD 02/17/2023 10:02 AM Signed [facility] Date of Service: 02/17/2023 Patient: Denisha Velasco Medical Record: [id number] Last Rheumatology visit: None at [facility] History of Present Illness Denisha [...] than (more content not included)... Normal [facility] VITAMIN D 25 HYDROXYon 02-17 25-hydroxyvitamin D3 [Mass/Vol] 14.6 ng/mL Low 31.0 - 80.0 ng/mL [facility] Vit B12 SerPl-mCncon 023 Cobalamin (Vitamin B12) [Mass/Vol] 347 pg/mL Normal 232-1245 [facility] Comment on above: Order Comment: Speci men Type: BLOOD SPECIMEN Ordering Facility: [facility] Address: [address] [place] [address] Performed By: #### 2 132-9 #### [facility] CLIA [id number] [address] [facility] [address] [facility] SARS-CoV2 IgMon 07-07-2022 Comment Notes Normal [facility] Comment on above: Result Comment: Nega tive results to antibodies against SARS-CoV-2 are generally indicative of non-exposure to virus and lack of longevity of antibody response. Performed By: #### C VDABM #### [facility] [address] [place] [address] Dr. Karey Ordoñez Disclaimer Notes Normal [facility] Comment on above: Result Comment: This is a lab developed test. This test has been validated in accordance with [facility] guidelines and FDA guidance document (Policy for [...] due to past or present infection with cfq-BRLH-RcX-2 coronavirus strains, such as coronavirus HKU1, NL63, OC43, or 229E. Performed By: #### C VDABM #### [facility] [address] [place] [address] Dr. Karey Ordoñez Electronically Signed By Comment [facility] Comment on above: Result Comment: Fernando Scales Performed By: #### C VDABM #### [facility] [address] [place] [address] Dr. Karey Ordoñez Methodology Comment [facility] Comment on above: Result Comment: Chem iluminescence Performed By: #### C VDABM #### [facility] [address] [place] [address] Dr. Karey Ordoñez References Notes [facility] Comment on above: Result Comment: Sammy Godinez., Sheldon Maria, Roly Bass, Jeffry Summers, Hola Ordoñez, Carlos Bass, et. al. (2020). Profiling early humoral response to diagnose novel coronavirus disease (COVID-19). Clinical Infectious Diseases. Lorri Mosley et al. (2020) Profile of Specific Antibodies to SARS-CoV-2: The First Report Journal of Infection (2020), doi: https://doi.org/10.1016/j.jinf.2020.03.052 Charan Rodriguez et al. (2020). Antibody responses to SARS-CoV-2 in COVID-19 patients: the perspective application of serological tests in clinical practice. 10.1101/2019.03.18.42987846. Performed By: #### C VDABM #### [facility] [address] [place] [address] Dr. Karey Ordoñez Result Negative [facility] Comment on above: Performed By: #### C VDABM #### [facility] [address] [place] [address] Dr. Karey Ordoñez Value 0.03 COI [facility] Comment on above: Result Comment: <0.8 : Negative 0.8-<1.0: Indeterminate >=1.0: Positive Performed By: #### C VDABM #### [facility] [address] [place] [address] Dr. Karey Ordoñez SARS-CoV2 IgGon 07-04-2022 SARS-CoV-2 (COVID-19) IgG IA.rapid Ql (S/P/Bld) >800.0 Normal Neg <13.0 [facility] Comment on above: Performed By: #### C VDIGG #### [facility] [address] [place], [place] [address] Dr. Karey Ordoñez SARS-CoV-2 (COVID-19) RNA RUBY+probe Ql (Unsp spec) Positive Normal [facility] Comment on above: Result Comment: Anti bodies against the SARS-CoV-2 spike protein, including the receptor binding domain (RBD) were detected. It is not yet known what level of antibody to SARS-CoV-2 spike protein correlates to immunity against developing symptomatic SARS-CoV-2 disease. This assay was performed using [employer](R) SARS-CoV-2 Trimeric S IgG assay. Performed By: #### C VDIGG #### [facility] [address] [place], [place] [address] Dr. Karey Ordoñez Office Visit (Cardiology)on 06-30-2022 Follow-up visit Diagnoses/Problems Assessed Benign essential hypertension (401.1) (I10) Vertigo (780.4) (R42) Morbid obesity with BMI of 45.0-49.9, adult (278.01,V85.42) (E66.01,Z68.42) Never smoker Orders Morbid obesity with BMI of 45.0-49.9, adult Healthy Weight Tips; Status:Complete - Retrospective Authorization; Done: [id number] Some eating tips that can help you lose weight.; Status:Complete - Retrospective Authorization; Done: [id number] SocHx: Never smoker Tobacco Use Screening; Status:Complete; Done: [id number] Patient Instructions Please bring all medicines, vitamins, [...] negative for complaint. Vitals Vital Signs Recorded: [id number] 09:45AM Heart Rate74, R Radial Xfdnskac768, RUE, Sitting Pfmdgwawy03, RUE, Sitting Height5 ft 3 in Zbrykc400 lb BMI Syxivsxxqv56.42 kg/m2 BSA Calculated2.23 Tobacco Useb) No PHQ-2 [...] . Abdomen: (more content not included)... Normal [facility] Tobacco Screening.on 023 Adult depression screening assessment No [facility] 250 DO Work Phone: Fall risk assessment a) No falls within the last year [facility] 250 DO Work Phone: Tobacco use status [facility] b) No [facility] 250 DO Work Phone: FREE T4on 05-12-2022 Free T4 [Mass/Vol] 1.11 ng/dL Normal 0.76-1.46 [facility] Comment on above: Performed By: #### F T4 #### [facility] [address] [place] [address] Dr. Karey Ordoñez GLYCOHEMOGLOBIN A1Con 2022 ADA RECOMMENDATION SEE BELOW Normal [facility] Comment on above: Result Comment: ADA RECOMMENDED LIMIT 4.0 - 6.0 ADA THERAPEUTIC TARGET < 7.0 ACTION SUGGESTED > 7.0 Performed By: #### F T4 #### [facility] [address] [place] [address] Dr. Karey Ordoñez Glucose [Mass/Vol] 114 mg/dL Normal [facility] Comment on above: Performed By: #### F T4 #### [facility] [address] [place] [address] [address] Karey Ordoñez HbA1c (Bld) [Mass fraction] 5.6 % Normal 4.5-6.2 [facility] Comment on above: Performed By: #### F T4 #### [facility] [address] [place] [address] Dr. Karey Ordoñez PROF CHEM 8 (BAS METB)on Anion gap [Moles/Vol] 13.5 mmol/L Normal [facility] Comment on above: Performed By: #### T SH, BMP #### [facility] [address] [place] [address] Dr. Karey Ordoñez Calcium [Mass/Vol] 9.1 mg/dL Normal 8.5-10.1 [facility] Comment on above: Performed By: #### T SH, BMP #### [facility] [address] [place] [address] Dr. Karey Ordoñez Chloride [Moles/Vol] 103 mmol/L Normal 98-107 [facility] Comment on above: Performed By: #### T SH, BMP #### [facility] [address] [place] [address] Dr. Karey Ordoñez CO2 [Moles/Vol] 26.7 mmol/L Normal 21.0-32.0 [facility] Comment on above: Performed By: #### T SH, BMP #### [facility] [address] [place] [address] Dr. Karey Ordoñez Creatinine [Mass/Vol] 0.79 mg/dL Normal 0.55-1.02 [facility] Comment on above: Performed By: #### T SH, BMP #### [facility] [address] [place] [address] [address] Karey Ordoñez EGFR-AF INDIAN >60 Normal >=60 [facility] Comment on above: Performed By: #### T SH, BMP #### [facility] [address] [place] [address] [address] Karey Ordoñez EGFR-NON AF INDIAN >60 Normal >=60 [facility] Comment on above: Performed By: #### T SH, BMP #### [facility] [address] [place] [address] [address] Karey Ordoñez Glucose [Mass/Vol] 94 mg/dL Normal 74-106 [facility] Comment on above: Performed By: #### T SH, BMP #### [facility] [address] [place] [address] Dr. Karey Ordoñez Potassium [Moles/Vol] 4.2 mmol/L Normal 3.5-5.1 [facility] Comment on above: Performed By: #### T SH, BMP #### [facility] [address] [place] [address] [address] Karey Ordoñez Sodium [Moles/Vol] 139 mmol/L Normal 136-145 [facility] Comment on above: Performed By: #### T SH, BMP #### [facility] [address] [place] [address] [address] Karey Ordoñez Urea nitrogen [Mass/Vol] 12.0 mg/dL Normal 7.0-18.0 [facility] Comment on above: Performed By: #### T SH, BMP #### [facility] [address] [place] [address] [address] Karey Ordoñez Urea nitrogen/Creatinine [Mass ratio] 15.2 mg/mg Normal [facility] Comment on above: Performed By: #### T SH, BMP #### [facility] [address] [place] [address] [address] Karey Ordoñez TSHon 05-12-2022 TSH 1.098 uIU/mL Normal 0.358-3.740 [facility] Comment on above: Performed By: #### T SH, BMP #### [facility] [address] [place] [address] [address] Karey Ordoñez FREE T3on 02-06-2022 FREE T3 1.79 pg/mlL Critically low 2.18-3.98 [facility] [place] Comment on above: Performed By: #### F T3, TSH #### [facility] [address] [address] [address] Karey Ordoñez FREE T4on 02-06-2022 Free T4 [Mass/Vol] 1.12 ng/dL Normal 0.76-1.46 [facility] Comment on above: Performed By: #### F T4 #### [facility] [address] [address] [address] Karey Ordoñez TSHon 02-06-2022 TSH 2.571 uIU/mL Normal 0.358-3.740 The [facility] Comment on above: Performed By: #### F T3, TSH #### [facility] [address] [place] [address] Dr. Karey Ordoñez MRI BRAIN WO CONon MRI BRAIN WO CON EXAMINATION: MRI BRA IN WO [facility], 01/22/2022 12:32 PM EDT HISTORY: Paresthesia COMPARISON: [...] by: VERO ATKINS Date: 2022-01-22 13:49 Normal [facility] CT CSPINE WO CONon 2 CT [...] by: LALI PATEL Date: 2022-01-18 10:22 Normal [facility] US CAROTID ART BILon 022 US [...] by: ZINA GREGORY Date: 2022-01-17 18:33 Normal [facility] [address] HEAD WO CONon 01-15-2022 CT [...] by: VERO ATKINS Date: 2022-01-15 11:07 Normal [facility] MRI KNEE RT WO CONon 022 [...] by: VERO ATKINS Date: 2021-12-18 15:05 Normal [facility] XR KNEE RT 3Von 12-10-2021 XR [...] VERO WILSON Date: 2021-12-10 06:40 Normal [facility] LIVER PROFILEon 10-29-2021 Albumin [Mass/Vol] 3.7 g/dL Normal 3.4-5.0 [facility] Comment on above: Performed By: #### F T4 #### [facility] [address] [place] [address] Dr. Karey Ordoñez Albumin/Globulin [Mass ratio] 0.9 {ratio} Normal [facility] Comment on above: Performed By: #### F T4 #### [facility] [address] [place] [address] Dr. Karey Ordoñez ALP [Catalytic activity/Vol] 111 U/L Normal 46-116 [facility] Comment on above: Performed By: #### F T4 #### [facility] [address] [place] [address] Dr. Karey Ordoñez ALT [Catalytic activity/Vol] 22 U/L Normal 14-59 [facility] Comment on above: Performed By: #### F T4 #### [facility] [address] [place] [address] Dr. Karey Ordoñez AST [Catalytic activity/Vol] 12 U/L Critically low 15-37 [facility] Comment on above: Performed By: #### F T4 #### [facility] [address] [place] [address] Dr. Karey Ordoñez BILI, CONJUGATED 0.1 mg/dL Normal 0.0-0.2 [facility] Comment on above: Performed By: #### F T4 #### [facility] [address] [place] [address] Dr. Karey Ordoñez Bilirubin [Mass/Vol] 0.5 mg/dL Normal 0.2-1.0 [facility] Comment on above: Performed By: #### F T4 #### [facility] [address] [place] [address] Dr. Karey Ordoñez Globulin (S) [Mass/Vol] 4.1 g/dL Normal [facility] Comment on above: Performed By: #### F T4 #### [facility] [address] [place] [address] Dr. Karey Ordoñez Protein [Mass/Vol] 7.8 g/dL Normal 6.4-8.2 [facility] Comment on above: Performed By: #### F T4 #### [facility] [address] [place] [address] Dr. Karey Ordoñez INSULINon 10-02-2021 Insulin 10.5 uIU/mL Normal 2.6-24.9 [facility] Comment on above: Performed By: #### I NSULIN #### [facility] [address] [place] [address] Dr. Karey Ordoñez CBC AUTO DIFFon 10-01-2021 BASO # 0.0 103/ul Normal 0.0-0.1 [facility] Comment on above: Performed By: #### F T4 #### [facility] [address] [place] [address] Dr. Karey Ordoñez Basophils/100 WBC (Bld) 0.4 % Normal 0.2-2.0 [facility] Comment on above: Performed By: #### F T4 #### [facility] [address] [place] [address] Dr. Karey Ordoñez EO # 0.1 103/ul Normal 0.0-0.7 [facility] Comment on above: Performed By: #### F T4 #### [facility] [address] [place] [address] Dr. Karey Ordoñez Eosinophils/100 WBC (Bld) 1.1 % Normal 0.9-7.0 [facility] Comment on above: Performed By: #### F T4 #### [facility] [address] [place] [address] Dr. Karey Ordoñez Erythrocyte distribution width (RBC) [Ratio] 12.9 % Normal 11.0-15.0 [facility] Comment on above: Performed By: #### F T4 #### [facility] [address] [place] [address] Dr. Karey Ordoñez Hematocrit (Bld) [Volume fraction] 41.5 % Normal 36.0-48.0 [facility] Comment on above: Performed By: #### F T4 #### [facility] [address] [place] [address] Dr. Karey Ordoñez Hemoglobin (Bld) [Mass/Vol] 13.0 g/dL Normal 12.0-16.0 [facility] Comment on above: Performed By: #### F T4 #### [facility] [address] [place] [address] Dr. Karey Ordoñez IG # 0.04 10e3/ul Critically high 0.00-0.03 [facility] Comment on above: Performed By: #### F T4 #### [facility] [address] [place] [address] Dr. Karey Ordoñez IG % 0.5 % Normal 0.0-0.5 [facility] Comment on above: Performed By: #### F T4 #### [facility] [address] [place] [address] Dr. Karey Ordoñez LYMPH # 1.9 103/ul Normal 1.2-3.8 [facility] Comment on above: Performed By: #### F T4 #### [facility] [address] [place] [address] Dr. Karey Ordoñez Lymphocytes/100 WBC (Bld) 22.7 % Normal 20.5-60.0 [facility] Comment on above: Performed By: #### F T4 #### [facility] [address] [place] [address] Dr. Karey Ordoñez MANUAL DIFF REQ NO Normal [facility] Comment on above: Performed By: #### F T4 #### [facility] [address] [place] [address] Dr. Karey Ordoñez MCH (RBC) [Entitic mass] 28.9 pg Normal 26.7-34.0 [facility] Comment on above: Performed By: #### F T4 #### [facility] [address] [place] [address] Dr. Karey Ordoñez MCHC (RBC) [Mass/Vol] 31.3 g/dL Normal 29.9-35.2 [facility] Comment on above: Performed By: #### F T4 #### [facility] [address] [place] [address] [address] Karey Ordoñez MCV (RBC) [Entitic vol] 92.2 fL Normal 81.0-99.0 [facility] Comment on above: Performed By: #### F T4 #### [facility] [address] [place] [address] [address] Karey Ordoñez MONO # 0.6 103/ul Normal 0.3-0.8 [facility] Comment on above: Performed By: #### F T4 #### [facility] [address] [place] [address] [address] Karey Ordoñez Monocytes/100 WBC (Bld) 6.8 % Normal 1.7-12.0 [facility] Comment on above: Performed By: #### F T4 #### [facility] [address] [place] [address] Dr. Karey Ordoñez NEUT # 5.8 103/ul Normal 1.4-6.5 [facility] Comment on above: Performed By: #### F T4 #### [facility] [address] [place] [address] Dr. Karey Ordoñez Neutrophils/100 WBC (Bld) 68.5 % Normal 43.0-75.0 [facility] Comment on above: Performed By: #### F T4 #### [facility] [address] [place] [address] Dr. Karey Ordoñez Platelet mean volume (Bld) [Entitic vol] 12.8 fL Normal 9.5-13.5 [facility] Comment on above: Performed By: #### F T4 #### [facility] [address] [place] [address] Dr. Karey Ordoñez PLT 231 103/ul Normal 150-450 [facility] Comment on above: Performed By: #### F T4 #### [facility] [address] [place] [address] Dr. Karey Ordoñez RBC 4.50 106/ul Normal 4.20-5.40 [facility] Comment on above: Performed By: #### F T4 #### [facility] [address] [place], [place] [address] Dr. Karey Ordoñez WBC 8.5 103/ul Normal 4.0-11.0 [facility] Comment on above: Performed By: #### F T4 #### [facility] [address] [place] [address] Dr. Kaery Ordoñez FREE T4on 10-01-2021 Free T4 [Mass/Vol] 1.27 ng/dL Normal 0.76-1.46 [facility] Comment on above: Performed By: #### F T4 #### [facility] [address] [place] [address] Dr. Karey Ordoñez GLYCOHEMOGLOBIN A1Con 2021 ADA RECOMMENDATION SEE BELOW Normal [facility] Comment on above: Result Comment: ADA RECOMMENDED LIMIT 4.0 - 6.0 ADA THERAPEUTIC TARGET < 7.0 ACTION SUGGESTED > 7.0 Performed By: #### A 1C #### [facility] [address] [place] [address] Dr. Karey Ordoñez Glucose [Mass/Vol] 123 mg/dL Normal [facility] Comment on above: Performed By: #### A 1C #### [facility] [address] [place], [place] [address] Dr. Karey Ordoñez HbA1c (Bld) [Mass fraction] 5.9 % Normal 4.5-6.2 [facility] Comment on above: Performed By: #### A 1C #### [facility] [address] [place] [address] Dr. Karey Ordoñez LIPID PROFILEon 10-01-2021 CHOL-HDL RATIO NORM SEE BELOW Normal [facility] Comment on above: Result Comment: 3.3 - 4.4 LOW RISK 4.4 - 7.1 AVERAGE RISK 7.1 - 11.0 MODERATE RISK >11.0 HIGH RISK Performed By: #### F T4 #### [facility] [address] [place] [address] Dr. Karey Ordoñez Cholesterol [Mass/Vol] 182 mg/dL Normal <=200 [facility] Comment on above: Performed By: #### F T4 #### [facility] [address] [place] [address] Dr. Karey Ordoñez Cholesterol in HDL [Mass/Vol] 52 mg/dL Normal 40-60 [facility] Comment on above: Performed By: #### F T4 #### [facility] [address] [address] [address] Karey Ordoñez Cholesterol in LDL [Mass/Vol] 115.8 mg/dL Normal [facility] Comment on above: Performed By: #### F T4 #### [facility] [address] [address] [address] Karey Ordoñez Cholesterol.total/Ch olesterol in HDL [Mass ratio] 3.5 {ratio} Normal [facility] Comment on above: Performed By: #### F T4 #### [facility] [address] [place] [address] Dr. Karey Ordoñez HDL NORMAL > or = 60 mg/dl - LO W CARDIOVASCULAR RISK <40 mg/dl - HIGH CARDIOVASCULAR RISK Normal [facility] Comment on above: Performed By: #### F T4 #### [facility] [address] [place] [address] Dr. Karey Ordoñez LDL CALC NORMAL SEE BELOW Normal [facility] Comment on above: Result Comment: <100 mg/dl OPTIMAL 100 - 129 mg/dl NEAR OR ABOVE OPTIMAL 130 - 159 mg/dl BORDERLINE HIGH 160 - 189 mg/dl HIGH >190 mg/dl VERY HIGH Performed By: #### F T4 #### [facility] [address] [place] [address] Dr. Karey Ordoñez Triglyceride [Mass/Vol] 71 mg/dL Normal <=150 [facility] Comment on above: Performed By: #### F T4 #### [facility] [address] [place] [address] Dr. Karey Ordoñez VLDL CALC 14.2 mg/dL Normal [facility] Comment on above: Performed By: #### F T4 #### [facility] [address] [place] [address] Dr. Karey Ordoñez PROF 14(COMP METB)on 022 Albumin [Mass/Vol] 3.9 g/dL Normal 3.4-5.0 [facility] Comment on above: Performed By: #### F T4 #### [facility] [address] [place] [address] Dr. Karey Ordoñez Albumin/Globulin [Mass ratio] 0.9 {ratio} Normal [facility] Comment on above: Performed By: #### F T4 #### [facility] [address] [place] [address] Dr. Karey Ordoñez ALP [Catalytic activity/Vol] 117 U/L Critically high 46-116 [facility] Comment on above: Performed By: #### F T4 #### [facility] [address] [place] [address] Dr. Karey Ordoñez ALT [Catalytic activity/Vol] 25 U/L Normal 14-59 [facility] Comment on above: Performed By: #### F T4 #### [facility] [address] [place] [address] Dr. Karey Ordoñez Anion gap [Moles/Vol] 14.1 mmol/L Normal [facility] Comment on above: Performed By: #### F T4 #### [facility] [address] [place] [address] Dr. Karey Ordoñez AST [Catalytic activity/Vol] 14 U/L Critically low 15-37 [facility] Comment on above: Performed By: #### F T4 #### [facility] [address] [place] [address] Dr. Karey Ordoñez Bilirubin [Mass/Vol] 0.5 mg/dL Normal 0.2-1.0 [facility] Comment on above: Performed By: #### F T4 #### [facility] [address] [place] [address] Dr. Karey Ordoñez Calcium [Mass/Vol] 9.1 mg/dL Normal 8.5-10.1 [facility] Comment on above: Performed By: #### F T4 #### [facility] [address] [place] [address] Dr. Karey Ordoñez Chloride [Moles/Vol] 102 mmol/L Normal 98-107 [facility] Comment on above: Performed By: #### F T4 #### [facility] [address] [place] [address] Dr. Karey Ordoñez CO2 [Moles/Vol] 27.7 mmol/L Normal 21.0-32.0 [facility] Comment on above: Performed By: #### F T4 #### [facility] [address] [place] [address] Dr. Karey Ordoñez Creatinine [Mass/Vol] 0.76 mg/dL Normal 0.55-1.02 [facility] Comment on above: Performed By: #### F T4 #### [facility] [address] [address] [address] Karey Ordoñez EGFR-AF INDIAN >60 Normal >=60 [facility] Comment on above: Performed By: #### F T4 #### [facility] [address] [place] [address] Dr. Karey Ordoñez EGFR-NON AF INDIAN >60 Normal >=60 [facility] Comment on above: Performed By: #### F T4 #### [facility] [address] [place] [address] Dr. Karey Ordoñez Globulin (S) [Mass/Vol] 4.5 g/dL Normal [facility] Comment on above: Performed By: #### F T4 #### [facility] [address] [place] [address] Dr. Karey Ordoñez Glucose [Mass/Vol] 101 mg/dL Normal 74-106 [facility] Comment on above: Performed By: #### F T4 #### [facility] [address] [place] [address] Dr. Karey Ordoñez Potassium [Moles/Vol] 3.8 mmol/L Normal 3.5-5.1 [facility] Comment on above: Performed By: #### F T4 #### [facility] [address] [place] [address] Dr. Karey Ordoñez Protein [Mass/Vol] 8.4 g/dL Critically high 6.4-8.2 [facility] Comment on above: Performed By: #### F T4 #### [facility] [address] [place] [address] Dr. Karey Ordoñez Sodium [Moles/Vol] 140 mmol/L Normal 136-145 [facility] Comment on above: Performed By: #### F T4 #### [facility] [address] [address] [address] Karey Ordoñez Urea nitrogen [Mass/Vol] 10.0 mg/dL Normal 7.0-18.0 [facility] Comment on above: Performed By: #### F T4 #### [facility] [address] [address] [address] Karey Ordoñez Urea nitrogen/Creatinine [Mass ratio] 13.2 mg/mg Normal [facility] Comment on above: Performed By: #### F T4 #### [facility] [address] [place] [address] Dr. Karey Ordoñez TSHon 10-01-2021 TSH 2.445 uIU/mL Normal 0.358-3.740 [facility] Comment on above: Performed By: #### F T4 #### [facility] [address] [place] [address] Dr. Karey Ordoñez TSH RANGE SEE BELOW Normal [facility] Comment on above: Result Comment: <0.3 4 UIU/ml HYPERTHYROID 0.34-5.60 UIU/ml EUTHYROID >5.60 UIU/ml HYPOTHYROID Performed By: #### F T4 #### [facility] [address] [place] [address] Dr. Karey Ordoñez Vital Signs Date Time Vital Sign Value Performing Clinician Faci lity 02-17-2023 08:48-0400 Body weight 126.55 kg Alberto Marcus MD Work Phone: [facility] 02-17-2023 08:48-0400 Diastolic blood pressure 82 mm[Hg] Alberto Marcus MD Work Phone: [facility] 02-17-2023 08:48-0400 Heart rate 96 /min Alberto Marcus MD Work Phone: [facility] 02-17-2023 08:48-0400 SaO2% (BldA) [Mass fraction] 98 % Alberto Marcus MD Work Phone: [facility] 02-17-2023 08:48-0400 Systolic blood pressure 116 mm[Hg] Alberto Marcus MD Work Phone: [facility] 06-30-2022 09:45-0500 Body height 160.02 cm Allison Mcclureholz Work Phone: [facility] 250 DO Work Phone: 06-30-2022 09:45-0500 Body mass index (BMI) [Ratio] 49.42 kg/m2 Allison Bullock Aichholz Work Phone: [facility] 250 DO Work Phone: 06-30-2022 09:45-0500 Body surface area Derived from formula 2.23 m2 Allison Bullock Aichholz Work Phone: [facility] 250 DO Work Phone: 06-30-2022 09:45-0500 Body weight 126.55 kg Allison Gordonhholz Work Phone: [facility] 250 DO Work Phone: 06-30-2022 09:45-0500 Diastolic blood pressure 80 mm[Hg] Allison Bullock Aichholz Work Phone: [facility] 250 DO Work Phone: 06-30-2022 09:45-0500 Heart rate 74 /min Allison Bullock Aichholz Work Phone: [facility] 250 DO Work Phone: 06-30-2022 09:45-0500 Systolic blood pressure 128 mm[Hg] Allison Bullock Aichholz Work Phone: [facility] 250 DO Work Phone: Encounters Encounter Date Encounter Type Care Provider Facility Start: 08-31-2023 Chart abstracting Dino Garcia [facility] Work Phone: [facility] Comment on above: Genetics- parental t esting Start: 07-30-2023 End: 07-30-2023 ambulatory ALLISONMich MENDEZ Not Available Start: 07-24-2023 End: 07-25-2023 ambulatory TAQUERIA SOLIS [facility] Start: 07-15-2023 Orders Only Taqueria Solis MD Work Phone: [facility] Comment on above: Elevated partial thr omboplastin time (PTT) (Primary Dx) Start: 07-13-2023 End: 07-14-2023 ambulatory JOANN MAHMOOD [facility] Start: 04-30-2023 End: 04-30-2023 ambulatory ALLISON VANESSA Not Available Start: 02-17-2023 End: 02-18-2023 ambulatory ALBERTO MARCUS Facility:[facility] Start: 02-17-2023 End: 02-17-2023 Office outpatient new 60 minutes Alberto Marcus MD Work Phone: Rheumatology Comment on above: Fibromyalgia (Primar y Dx); Sedimentation rate elevation; Fatigue, unspecified type; Vitamin D deficiency Start: 07-07-2022 Encounter for antibo dy response examination LAURO PEREZA VANESSA [facility] Start: 07-03-2022 End: 07-04-2022 ambulatory LAURO ANDREWS JOSE JRasheedMARRYLorri Facility:[facility] Start: 07-03-2022 End: 07-04-2022 Encounter for antibody response examination LAURO ANDREWS JOSE JRasheedMARRYLorri Facility:[facility] Start: 06-30-2022 Office outpatient vi sit 15 minutes Allison Ara Mendez Work Phone: [facility] 250 DO Work Phone: Start: 06-30-[address] Chandler Wilkes II Facility: Start: 05-12-2022 End: 05-13-2022 ambulatory LAURO ANDREWS JOSE JRasheedMARRYLorri Facility:[facility] Start: 03-04-2022 End: 03-04-2022 ambulatory JESSE HATCH Facility:[facility] Start: 02-06-2022 End: 02-07-2022 ambulatory EPIC CUPID ANALYST ALLISON JOSE JHHOLZ Facility:[facility] Start: 01-22-2022 End: 01-23-2022 ambulatory EPIC CUPID ANALYST ALLISON AICHHOLZ Facility:[facility] Start: 01-18-2022 End: 01-18-2022 ambulatory LAURO ALLISON AICHHOLZ Facility:[facility] Start: 01-17-2022 End: 01-18-2022 ambulatory LAURO ALLISON AICHHOLZ Facility:[facility] Start: 01-15-2022 End: 01-15-2022 ambulatory EPIC CUPID ANALYST ALLISON JOSE JHHOLZ Facility:[facility] Start: 12-18-2021 End: 12-19-2021 ambulatory LAURO PEREZA JOSE JHHOLZ Facility:[facility] Start: 12-09-2021 End: 12-10-2021 ambulatory SHAIKH Rasheed LARA Facility:[facility] Start: 10-29-2021 End: 10-30-2021 ambulatory LAURO PEREZA JOSE JHHOLZ Facility:[facility] Start: 10-01-2021 End: 10-02-2021 ambulatory LAURO MCCLUREHOLZ Facility:[facility] Start: 08-13-2021 End: 10-01-2021 ambulatory LAURO ALLISON JOSE JHHOLZ Facility:[facility] Procedures Date Procedure Procedure Detail Performing Clinician Start: 04-14-2023 Adult depression screening assessment Taqueria Solis MD Work Phone: Arthroscopy of knee Allison Ara Gordonhholz Work Phone: section Allison Ara Aic hholz Work Phone: Dilation and curettage Allison Ara Aichholz Work Phone: Hysterectomy Allison Ara Aichhol z Work Phone: NEGATED: Highlighted row has not occurred! Colonoscopy Allison Ara Aichholz Work Phone: Plan of Treatment Date Care Activity Detail Author Start: 04-14-2024 Adult BMI Screening Adult BMI Screen ing [facility] Start: 04-14-2024 Depression Screening Depression Scre ening [facility] Start: 04-14-2024 Tobacco Screening Tobacco Screening [facility] Start: 04-11-2024 FUV, Provider: Chandler Wilkes, Status: Pen, Time: 11:00 AM FUV, Provider: Chandler Wilkes, Status: Fausto, Time: 11:00 AM -[facility] 250 DO Work Phone: Start: 01-10-2024 Influenza vaccination Influenz a Vaccine (Season Ended) [facility] Start: 05-11-2023 Behavioral Health Screening Behavioral Health Screening [facility] Start: 02-17-2023 End: 04-19-2023 Cobalamin (Vitamin B12) [Mass/volume] in Serum or Plasma [facility] Work Phone: Comment on above: Expected: 02/17/2023 , Expires: 04/19/2023 Start: 02-17-2023 End: 04-19-2023 IMMUNOGLOBULINS YARI IMMUNOGLOBULINS YARI Lab Routine Sedimentation rate elevation Expected: 02/17/2023, Expires: 04/19/2023 [facility] Work Phone: Comment on above: Expected: 02/17/2023 , Expires: 04/19/2023 Start: 02-17-2023 End: 04-19-2023 PROTEIN ELECTROPHORESIS SERUM W/INTERP PROTEIN ELECTROPHORESIS SERUM W/INTERP Lab Routine Sedimentation rate elevation Expected: 02/17/2023, Expires: 04/19/2023 [facility] Work Phone: Comment on above: Expected: 02/17/2023 , Expires: 04/19/2023 Start: 01-09-2023 Covid-19 Vaccine ( season) Covid-19 Vaccine () [facility] Start: 01-09-2023 Influenza vaccination [facility] Start: 05-11-2022 Depression Assessment Depression Ass essment [facility] Start: 12-25-2013 HPV Testing HPV Testing [facility] Start: 12-25-2013 Screening for malign ant neoplasm of cervix HPV Testing [facility] Start: 12-25-2004 Pap Testing Pap Testing [facility] Start: 12-25-2004 Screening for malign ant neoplasm of cervix Pap Testing [facility] Start: 12-25-2002 DTaP,Tdap and Td Vac cines (1 - Tdap) DTaP,Tdap and Td Vaccines (1 - Tdap) [facility] Start: 12-25-2002 Hepatitis B Vaccine (1 of 3 - 19+ 3-dose series) Hepatitis B Vaccine (1 of 3 - 19+ 3-dose series) [facility] Start: 12-25-2002 Urine microalbumin profile DTaP,Tdap,Td Vaccine (1 - Tdap) [facility] Start: 12-25-2001 Adult BMI Follow Up Plan Adult BMI F ollow Up Plan [facility] Start: 12-25-2001 Hepatitis C Screening Hepatitis C [facility] Start: 12-25-2001 Hepatitis C screening Hepatitis C [facility] Start: 12-25-2001 HIV Screening HIV Screening [facility] Start: 12-25-2001 HIV screening HIV Screening [facility] Start: 1985 Hepatitis B Vaccine (1 of 3 - 3-dose series) Hepatitis B Vaccine (1 of 3 - 3-dose series) [facility] End: 07-14-2024 Inhibitor screen Inhibitor screen Lab Routine Elevated partial thromboplastin time (PTT) 1 Occurrences starting 07/15/2023 until 07/14/2024 [facility] Work Phone: Comment on above: 1 Occurrences starti ng 07/15/2023 until 07/14/2024 SWAB COLLECTION SPECIMEN SWAB CO LLECTION SPECIMEN Lab Routine Family history of autism Ordered: 08/31/2023 [facility] Work Phone: Comment on above: Ordered: 08/31/2023 Immunizations Immunization Date Immunization Notes Care Provider [facility] 04-25-2022 influenza virus vacc ine, unspecified formulation Taqueria Solis MD Work Phone: [facility] 09-10-2020 Pfizer-BioNTech COVI D-19 Vacc 30 MCG/0.3ML Intramuscular Suspension Allison Mendez Work Phone: [facility] [employer] [facility] DO Work Phone: 08-20-2020 Pfizer-BioNTech COVI D-19 Vacc 30 MCG/0.3ML Intramuscular Suspension Allison Mendez Work Phone: [facility] [employer] 250 DO Work Phone: Payers Date Payer Category Payer Medicaid [id number] 1985 Unknown [id number] 1983 Unknown [id number] [id number] 1983 Unknown [id number] [id number] 1983 Unknown [id number] [id number] 1983 Unknown [id number] 2.16.840.1.534715.3.579.2.593 1983 Unknown [id number] 2.16.840.1.556992.3.579.2.593 1983 Unknown [id number] 2.16.840.1.342357.3.579.2.593 1983 Unknown [id number] 2.16.840.1.021282.3.579.2.593 1983 Unknown [id number] 2.16.840.1.753287.3.579.2.593 1983 Unknown [id number] 2.16.840.1.729052.3.579.2.593 1983 Unknown [id number] 2.16.840.1.336529.3.579.2.593 1983 Unknown [id number] 2.16.840.1.313441.3.579.2.593 1983 Unknown [id number] 2.16.840.1.179855.3.579.2.593 1983 Unknown [id number] 2.16.840.1.034263.3.579.2.593 1983 Unknown [id number] 2.16.840.1.393997.3.579.2.1259 1983 Unknown [id number] 2.16.840.1.958263.3.579.2.1259 1983 Unknown [id number] [id number] 1983 Unknown [id number] [id number] 1959 Unknown [id number] Unknown [facility] Social History Date Type Detail Facility Start: 02-13-2023 End: 02-17-2023 No alcohol use No alcohol use [facility] Comment on above: 1-2 cups coffee brian y; Start: 07-29-2021 End: 02-17-2023 Tobacco smoking status NHIS Never smoked tobacco [facility] Start: 07-29-2021 End: 02-17-2023 Tobacco use and exposure Smokeless tobacco non-user [facility] Start: 02-13-2023 End: 02-17-2023 Tobacco use panel [facility] Adult Depression Screening Assessment 0 [facility] Start: 1985 Sex Assigned At Not on file [facility] Start: 04-14-2023 Alcohol intake Ex-drinker (finding) [facility] Progress note 08-31-2023 Note Date & Type Note Facility 08-31-2023 Note HNO ID: [id number] Author: DINO SELLERS LGC Service: ? Author Type: Genetic Counselor Type: Progress Notes Filed: 08/31/2023 09:46 Note Text: Denisha's son ( ) is followed in Genetics and will be undergoing testing which includes parental samples for segregation analysis; a separate report will not be generated. Denisha has agreed to provide a sample for this testing and an order has been placed for a cheek swab kit to be sent to her home address. Dino Sellers MS, [facility] Licensed Genetic Counselor [facility] History of Present illness Narrative 08-31-2023 Dino Sellers LGC - 08/31/2023 9:45 AM EDT Note Date & Type Note Facility 08-31-2023 History of Presen t illness Narrative Denisha's son ( ) is followed in Genetics and will be undergoing testing which includes parental samples for segregation analysis; a separate report will not be generated. Denisha has agreed to provide a sample for this testing and an order has been placed for a cheek swab kit to be sent to her home address. Dino Sellers MS, [facility] Licensed Genetic Counselor documented in this encounter [facility] Progress note 02-17-2023 Note Date & Type Note Facility 02-17-2023 Note HNO ID: [id number] Author: Alberto Marcus MD Service: ? Author Type: Physician Type: Progress Notes Filed: 02/17/2023 10:02 AM Note Text: Rheumatology Clinic Date of Service: 02/17/2023 Patient: Denisha Velasco Medical Record: [id number] Last Rheumatology visit: None at [facility] History of Present Illness Denisha [...] day a (more content not included)... [facility] Instructions 02-17-2023 Patient Instructions Note [...] and/or non-rheumatologic conditions. A meta-analysis from the [facility] in [place] suggested that concomitant fibromyalgia is common in patients with inflammatory arthritis, which can have a major impact on assessing disease severity and treatment decisions. The overall prevalence of fibromyalgia was 21% among patients with rheumatoid arthritis and 13% in ankylosing spondylitis, whereas the condition is reported in approximately 1% to 5% of the general population, according to Wyatt Luke, [facility], PhD, of the [facility] in [place], and colleagues. The cornerstones of therapy for [...] guidelines of fibromyalgia: (1) https://www.rheumatology.org/I-Am-A/Patient- Caregiver/Diseases-Conditions/Fibromyalgia (2) http://fibroguide.[facility]/ documented in this encounter [facility] History of Present illness Narrative 02-17-2023 Alberto Marcus MD - 02/17/2023 8:49 AM EDT Note Date & Type Note Facility 02-17-2023 History of Presen t illness Narrative Images from the original note were not included. Rheumatology Clinic Date of Service: 02/17/2023 Patient: Denisha Velasco Medical Record: [id number] Last Rheumatology visit: None at [facility] History of Present Illness Denisha [...] which included preparing to see the patient, [id number] patient care, completing clinical documentation, obtaining and/or reviewing separately obtained history, performing a medically appropriate examination, and counseling and educating the patient/family/caregiver. Alberto Marcus MD Rheumatology Date: February 17, 2023 Time: 8:50 AM documented in this encounter [facility] Evaluation note Note Date & Type Note Facility Evaluation note Diagnosis Fibromyalgia- Primary Mylagia and myositis, unspecified Sedimentation rate elevation Elevated sedimentation rate Fatigue, unspecified type Vitamin D deficiency Unspecified vitamin D deficiency documented in this encounter [facility] Evaluation note Note Date & Type Note Facility Evaluation note Diagnosis Elevated partial thromboplastin time (PTT)- Primary Abnormal coagulation profile documented in this encounter [facility] Evaluation note Note Date & Type Note Facility Evaluation note Diagnosis Family history of autism- Primary Family history of psychiatric condition documented in this encounter [facility] History of Present illness Narrative [...] of doing it at her young age. -[facility] DO Work Phone: Instructions Note Date & Type Note Facility Instructions Not on filedocumented in this en counter [facility] Summary Purpose Family History Unknown Family Member Name Dates Details Family history [...] section and content) DATE CREATED AUTHOR 06/30/2022 [facility] DATE CREATED AUTHOR AUTHOR'S ORGANIZ ATION 07/01/2022 [employer] DATE CREATED AUTHOR AUTHOR'S ORGANIZ ATION 07/08/2022 [facility] [facility] DATE CREATED AUTHOR AUTHOR'S ORGANIZ ATION 07/31/2023 [facility] EPIC DATE CREATED AUTHOR AUTHOR'S ORGANIZ ATION 08/01/2023 [facility] DATE CREATED AUTHOR AUTHOR'S ORGANIZ ATION 08/31/2023 [facility] Source Comments (unrecognize d section and content) In the event this informatio n is protected by the Federal Confidentiality of Alcohol and Drug Abuse Patient Records regulations: The Federal rules restrict any use of the information to criminally investigate or prosecute any alcohol or drug abuse patient.[facility] the event this information is protected by the Federal Confidentiality of Alcohol and Drug Abuse Patient Records regulations: The Federal rules restrict any use of the information to criminally investigate or prosecute any alcohol or drug abuse patient.[facility] Reason for Visit (unrecogniz ed section and content) Reason Comments Consult Reason Comments Genetics- parental testing Care Teams (unrecognized sec tion and content) Flight Control Specialist Relationship Specialty Start Date End Date Allison Mendez, TEACHERS AIDE-EPIC CUPID ANALYST [address] [place] [address] PCP - General Nurse Practitioner 04/14/23 FOR RECORDS PERTAINING TO PATIENTS WHO ARE [...] BE BASED ON THE PRIMARY CLINICAL RECORDS. [employer] [facility]. provides no warranty or guarantee of the accuracy or completeness of information in this document.
--- NOTE | 2023-09-07 14:13 | P.CN_ITS ---
Consult Note: HPI Data of Consult Patient: new to practice Consult date: 09/07/23 Requesting Physician: Patrick Parks MD Primary Care Provider: Allison Mendez NP Consult Narrative Reason for consult: midback, low back pain Narrative: 37yof who presents for evaluation. longstanding mid and low back history, primarily began after childbirth several years ago. imaging reviewed, which shows multilevel degeneration in facet in lower lumbar spine. has tried various medications, including muscle relaxers, NSAIDs, percocet, prednisone, all without last benefit. has completed physical therapy and continues in the provider directed home exercise course >6 weeks, which has not provided lasting benefit. otherwise denies adverse med side effects or loss of bowel or bladder control. cc:: CC: Patrick Parks MD Review of Systems ROS Status of ROS 10 or more systems reviewed and unremark able except as noted in history and below PFSH PFSH Social History Smoking status: Never smoker Meds Home Medications and Allergies Home Medications ?Medication ?Instructions ?Recorded ?Confirmed ?Type aspirin 81 mg tablet,delayed 81 mg PO DAILY 03/31/23 03/31/23 History release (Adult Low Dose Aspirin) atorvastatin 10 mg tablet 10 mg PO DAILY 03/31/23 03/31/23 History buspirone 10 mg tablet 10 mg PO BID 03/31/23 03/31/23 History levothyroxine 137 mcg tablet 137 mcg PO DAILY 03/31/23 03/31/23 History losartan 50 mg tablet 50 mg PO DAILY 03/31/23 03/31/23 History metformin 500 mg tablet 500 mg PO DAILY 03/31/23 03/31/23 History ondansetron 4 mg disintegrating 4 mg PO Q6H PRN nausea and 03/31/23 Rx tablet vomiting #12 tabs oxycodone-acetaminophen 5 mg-325 1 tab PO Q4H PRN pain #20 tabs 03/31/23 Rx mg tablet (Percocet) prednisone 20 mg tablet 60 mg (3 x 20 mg) PO DAILY 3 days 03/31/23 Rx #9 tabs sertraline 100 mg tablet 100 mg PO BEDTIME 03/31/23 03/31/23 History tizanidine 4 mg tablet 4 mg PO BEDTIME 03/31/23 03/31/23 History verapamil 180 mg 24 hr 180 mg PO DAILY 03/31/23 03/31/23 History capsule,extended release Allergies Allergy/AdvReac Type Severity Reaction Status Date / Time hydrochlorothiazide Allergy Severe Verified 03/31/23 13:24 gabapentin AdvReac Severe Confusion Verified 03/31/23 13:24 Exam Narrative Exam Narrative: Psych-alert and oriented x 3. Attentive and appropriate, constitutionally normal, displays normal mood and affect per situation.? There are no obvious deficits in memory, reasoning, or intellect.? Skin-no obvious rashes, bruising, erythema noted to the patient's area of pain. Extremities- extremities are warm with minimal edema and palpable pulses. Thoracic - tenderness to palpation noted in the thoracic spine and paraspinal musculature. Multiple trigger points expressed on palpation. Lumbar-no significant tenderness to palpation noted in the lumbar spine and paraspinal musculature.? Pain is elicited with extension, and lateral rotation of the lumbar spine. Range of motion is slightly diminished with these motions due to pain. Facet loading maneuvers are positive bilaterally and do appear to be concordant with the patient's normal complaints of pain.? Coordination remains intact.? Gait remains non-antalgic. Assessment and Plan Assessment and Plan (1) Myofascial pain syndrome of thoracic spine: (2) Lumbar spondylosis: Plan 37yof who presents for evaluation. failed conservative measures >6 weeks, as noted. imaging reviewed, as noted. for her axial low back pain, given symptoms and imaging findings, prudent to attempt diagnostic bilateral l4-5, l5-s1 medial branch blocks under fluoroscopic guidance with intention of proceeding to radiofrequency ablation. she is in agreement. in terms of midback pain, prudent to attempt bilateral thoracic paraspinal trigger point injections. she is in agreement. meds reviewed, no changes. follow up after procedure.
== END 2023-09-07 13:15 | disposition home or self-care (01) ==
LOC: PM 13:15
PROVIDERS: PCP Nurse Practitioner; Visit Provider Anesthesiology
DX: M79.18 Myalgia, other site (principal); M47.816 Spondylosis without myelopathy or radiculopathy, lumbar region
CPT/HCPCS: G0463

== ENCOUNTER 2023-10-12 12:40 | Outpatient (OUT) | payer OTHER, SELFPAY ==
--- OUTSIDE RECORDS SUMMARY | 2023-10-12 13:04 | XMS_ITS ---
Patient Summarization (C-CDA 2.1 CCD) Created on: October 12, 2023 Denisha Velasco : 1985 Sex: Female Author Organization Sample organization Care Team Providers Care Architectural Technologist Name Role Phone Katrin LIMON, Dr. Chandler Pryor Attending Unavailable Katrin LIMON, Dr. Chandler Pryor Referring Unavailable Aichholz, . Allison Bullock Primary Care Unavailab le Aichholz Allison Ara Unavailable Unavailable Unavailable AICHHOLZ, RADIOLOGIST DIAGNOSTIC ALLISON Consulting Unavailable AICHHOLZ, RADIOLOGIST DIAGNOSTIC ALLISON Attending Unavailable AICHHOLZ, RADIOLOGIST DIAGNOSTIC ALLISON Primary Care Unavailable AICHHOLZ, RADIOLOGIST DIAGNOSTIC ALLISON Admitting Unavailable AICHHOLZ, RADIOLOGIST DIAGNOSTIC ALLISON Consulting Unavailable AICHHOLZ, RADIOLOGIST DIAGNOSTIC ALLISON Attending Unavailable AICHHOLZ, RADIOLOGIST DIAGNOSTIC ALLISON Primary Care Unavailable AICHHOLZ, RADIOLOGIST DIAGNOSTIC ALLISON Admitting Unavailable AICHHOLZ, RADIOLOGIST DIAGNOSTIC ALLISON Consulting Unavailable AICHHOLZ, RADIOLOGIST DIAGNOSTIC ALLISON Attending Unavailable AICHHOLZ, RADIOLOGIST DIAGNOSTIC ALLISON Admitting Unavailable AICHHOLZ, RADIOLOGIST DIAGNOSTIC ALLISON Primary Care Unavailable FAWWAD, MEI H Admitting Unavailable AICHHOLZ, RADIOLOGIST DIAGNOSTIC ALLISON Primary Care Unavailable VERO WILSON Consulting Unavailable FAWWAD, MEI H Attending Unavailable FAWWAD, MEI H Consulting Unavailable AICHHOLZ, RADIOLOGIST DIAGNOSTIC ALLISON Consulting Unavailable AICHHOLZ, RADIOLOGIST DIAGNOSTIC ALLISON Attending Unavailable AICHHOLZ, RADIOLOGIST DIAGNOSTIC ALLISON Admitting Unavailable AICHHOLZ, RADIOLOGIST DIAGNOSTIC ALLISON Primary Care Unavailable DR ZINA GREGORY Consulting Unavailable JESSE HATCH Attending Unavailable MAMIE, JESSE Salgado Admitting Unavailable AICHHOLZ, RADIOLOGIST DIAGNOSTIC ALLISON Primary Care Unavailable JESSE HATCH Consulting Unavailable AICHHOLZ, RADIOLOGIST DIAGNOSTIC ALLISON Primary Care Unavailable JESSE HATCH Attending Unavailable JESSE HATCH Admitting Unavailable JESSE HATCH Consulting Unavailable Lali Patel Consulting Unavailable AICHHOLZ, RADIOLOGIST DIAGNOSTIC ALLISON Primary Care Unavailable DR VERO ATKINS V Consulting Unavailable PAY ., DR PONCE Attending Unavailable PAY ., DR PONCE Admitting Unavailable PAY ., DR PONCE Consulting Unavailable AICHHOLZ, RADIOLOGIST DIAGNOSTIC ALLISON Admitting Unavailable AICHHOLZ, RADIOLOGIST DIAGNOSTIC ALLISON Attending Unavailable AICHHOLZ, RADIOLOGIST DIAGNOSTIC ALLISON Primary Care Unavailable AICHHOLZ, RADIOLOGIST DIAGNOSTIC ALLISON Attending Unavailable AICHHOLZ, RADIOLOGIST DIAGNOSTIC ALLISON Admitting Unavailable AICHHOLZ, RADIOLOGIST DIAGNOSTIC ALLISON Primary Care Unavailable BANCROFT, DR VERO De Oliveira Consulting Unavailable AICHHOLZ, RADIOLOGIST DIAGNOSTIC ALLSION Consulting Unavailable AICHHOLZ, RADIOLOGIST DIAGNOSTIC ALLISON Primary Care Unavailable BANCROFT, DR VERO De Oliveira Consulting Unavailable FAWWAD, MEI H Attending Unavailable FAWWAD, MEI H Admitting Unavailable FAWWAD, MEI H Consulting Unavailable AICHHOLZ, RADIOLOGIST DIAGNOSTIC ALLISON Admitting Unavailable AICHHOLZ, RADIOLOGIST DIAGNOSTIC ALLISON Primary Care Unavailable AICHHOLZ, RADIOLOGIST DIAGNOSTIC ALLISON Consulting Unavailable AICHHOLZ, RADIOLOGIST DIAGNOSTIC ALLISON Attending Unavailable AICHHOLZ, RADIOLOGIST DIAGNOSTIC ALLISON Admitting Unavailable AICHHOLZ, RADIOLOGIST DIAGNOSTIC ALLISON Primary Care Unavailable AICHHOLZ, RADIOLOGIST DIAGNOSTIC ALLISON Consulting Unavailable AICHHOLZ, RADIOLOGIST DIAGNOSTIC ALLISON Attending Unavailable Unavailable Primary Care Provider Unavailaz e Aichholz SENIOR RISK MANAGER-RADIOLOGIST DIAGNOSTIC, Allison J Primary Care Provider AICHHOLZ, ALLISON Attending Unavailable AICHHOLZ, ALLISON Attending Unavailable JOANN MAHMOOD Referring Unavailable AICHHOLZ, ALLISON J Primary Care Unavailable TAQUERIA SOLIS Referring Unavailable AICHHOLZ, ALLISON J Primary Care Unavailable ALBERTO MARCUS Referring Unavaila ble AICHHOLZ, ALLISON ARA Referring Unavailable ALBERTO MARCUS Attending Unavaila ble Unavailable Primary Care Provider Unavailaz Parks MD, Patrick Quiroz Attending Unavailable Allergies Allergy Classification Reported Allergen(s) Allergy Type Date of Onset Reaction(s) Facility (6 sources) gabapentin; Translations: [gabapentin] Drug Allergy 2 Other: See Comments [facility] (4 sources) hydroCHLOROthiaz ney; Translations: [hydroCHLOROthia zide CAPS] Drug Allergy 2 Other: See Comments [facility] (1 source) gabapentin Drug Allergy [facility] (3 sources) hydroCHLOROthiaz ney; Translations: [HYDROCHLOROTHIA ZIDE] Drug Allergy 4 [facility] Repository Encounters Encounter Date Encounter Type Care Provider Facility Start: 09-07-2023 End: 09-08-2023 ambulatory Patrick Parks MD Facility:[facility] Start: 08-31-2023 Chart abstracting Dino myers [facility] Work Phone: [facility] Comment on above: Genetics- parental t esting Start: 07-30-2023 End: 07-30-2023 ambulatory ALLISON MENDEZ Not Available Start: 07-24-2023 End: 07-25-[address] [facility] Start: 07-15-2023 Orders Only Taqueria Solis MD Work Phone: [facility] Comment on above: Elevated partial thr omboplastin time (PTT) (Primary Dx) Start: 07-13-2023 End: 07-14-2023 ambulatory JOANN Tesfaye ELA [facility] Start: 04-30-2023 End: 04-30-2023 ambulatory ALLISON MENDEZ Not Available Start: 02-17-2023 End: 02-18-2023 ambulatory ALBERTO MARCUS Facility:[facility] Start: 02-17-2023 End: 02-17-2023 Office outpatient new 60 minutes Alberto Marcus MD Work Phone: Rheumatology Comment on above: Fibromyalgia (Primar y Dx); Sedimentation rate elevation; Fatigue, unspecified type; Vitamin D deficiency Start: 07-07-2022 Encounter for antibo dy response examination RADIOLOGIST DIAGNOSTIC ALLISON MENDEZ [facility] Start: 07-03-2022 End: 07-04-2022 ambulatory RADIOLOGIST DIAGNOSTIC ALLISON MENDEZ Facility:[facility] Start: 07-03-2022 End: 07-04-2022 Encounter for antibody response examination LAURO MENDEZ Facility:[facility] Start: 06-30-2022 Office outpatient vi sit 15 minutes Allison Mendez Work Phone: [facility] 250 DO Work Phone: Start: 06-30-[address] Chandler Wilkes II Facility: Start: 05-12-2022 End: 05-13-2022 ambulatory RADIOLOGIST DIAGNOSTIC ALLISON BINHZ Facility:[facility] Start: 03-04-2022 End: 03-04-2022 ambulatory JESSE HATCH Facility:[facility] Start: 02-06-2022 End: 02-07-2022 ambulatory RADIOLOGIST DIAGNOSTIC ALLISON BINHZ Facility:[facility] Start: 01-22-2022 End: 01-23-2022 ambulatory RADIOLOGIST DIAGNOSTIC ALLISON AICRasheedHOLZ Facility:[facility] Start: 01-18-2022 End: 01-18-2022 ambulatory RADIOLOGIST DIAGNOSTIC ALLISON SHERMANHOLZ Facility:[facility] Start: 01-17-2022 End: 01-18-2022 ambulatory RADIOLOGIST DIAGNOSTIC ALLISON SHERMANHOLZ Facility:[facility] Start: 01-15-2022 End: 01-15-2022 ambulatory RADIOLOGIST DIAGNOSTIC ALLISON SHERMANHOLZ Facility:[facility] Start: 12-18-2021 End: 12-19-2021 ambulatory RADIOLOGIST DIAGNOSTIC ALLISON BINHZ Facility:[facility] Start: 12-09-2021 End: 12-10-2021 ambulatory SHAIKH Rasheed ORDAZJENNIFER Facility:[facility] Start: 10-29-2021 End: 10-30-2021 ambulatory RADIOLOGIST DIAGNOSTIC ALLISON BINHZ Facility:[facility] Start: 10-01-2021 End: 10-02-2021 ambulatory RADIOLOGIST DIAGNOSTIC ALLISON SHERMANHOLZ Facility:[facility] Start: 08-13-2021 End: 10-01-2021 ambulatory RADIOLOGIST DIAGNOSTIC ALLISON BINHZ Facility:[facility] Immunizations Immunization Date Immunization Notes Care Provider [facility] 04-25-2022 influenza virus vacc ine, unspecified formulation Taqueria Solis MD [facility] 09-10-2020 Pfizer-BioNTech COVI D-19 Vacc 30 MCG/0.3ML Intramuscular Suspension Allison Mendez Work Phone: [facility] 250 DO Work Phone: 08-20-2020 Pfizer-BioNTech COVI D-19 Vacc 30 MCG/0.3ML Intramuscular Suspension Allison Mendez Work Phone: [facility] 250 DO Work Phone: Medications Current Medications Medication Drug Class(es) Dates [...] Start: 07-09-2021 take 1 capsule by mo ut every twenty-four hours in the morning verapamiL [...] on above: Take 1 capsule by mo uth every afternoon. Completed/Discontinued Medications Medication Drug Class(es) Dates Sig (Normalized) Sig (Original) amitriptyline hydrochloride 25 mg oral tablet (1 source) Tricyclic Antidepressant Amitriptyline HCl - 25 MG Oral Tablet 1/2 to 1 tab at night Quantity: 0 Refills: 0 Ordered: 30-Jun-2022 DO Active Payers Date Payer Category Payer Unknown 2019 Medicaid [id number] 1985 Unknown [id number] 2.16. [id number] 1985 Unknown [id number] 2.16.84 0.1.194642.3.579.2.593 1985 Unknown [id number] 2.16.84 0.1.373755.3.579.2.593 1985 Unknown [id number] 2.16.84 0.1.278177.3.579.2.593 1985 Unknown [id number] 2.16.84 0.1.858369.3.579.2.593 1985 Unknown [id number] 2.16.84 0.1.976086.3.579.2.593 1985 Unknown [id number] 2.16.84 0.1.985017.3.579.2.593 1985 Unknown [id number] 2.16.84 0.1.759457.3.579.2.593 1985 Unknown [id number] 2.16.84 0.1.329467.3.579.2.593 1985 Unknown [id number] 2.16.84 0.1.589203.3.579.2.593 1985 Unknown [id number] 2.16.84 0.1.134144.3.579.2.593 1985 Unknown [id number] 2.16.84 0.1.901628.3.579.2.593 1985 Unknown [id number] 2.16.84 0.1.964090.3.579.2.593 1985 Unknown [id number] 2.16.84 0.1.077277.3.579.2.593 1985 Unknown [id number] 2.16.84 0.1.922471.3.579.2.1259 1985 Unknown [id number] 2.16.840 .1.482905.3.579.2.1259 1985 Unknown [id number] 2.16.8 40.1.209619.3.579.2.1286 1985 Unknown [id number] 2.16.8 40.1.304240.3.579.2.1286 1985 Unknown [id number] 2.16. 840.1.210224.3.579.2.196 1961 Unknown [id number] Plan of Treatment Date Care Activity Detail Author Start: 04-14-2024 Adult BMI Screening Adult BMI Screen ing [facility] Start: 04-14-2024 Depression Screening Depression Scre [facility] Start: 04-14-2024 Tobacco Screening Tobacco Screening [facility] Start: 04-11-2024 FUV, Provider: Chandler Wilkes, Status: Pen, Time: 11:00 AM FUV, Provider: Chandler Wilkes, Status: Pen, Time: 11:00 AM [place] [address] DO Work Phone: Start: 01-10-2024 Influenza vaccination Influenz a Vaccine (Season Ended) [facility] Start: 05-11-2023 Behavioral Health Screening Behavioral Health Screening [facility] Start: 02-17-2023 End: 04-19-2023 Cobalamin (Vitamin B12) [Mass/volume] in Serum or Plasma [facility] Work Phone: Comment on above: Expected: 02/17/2023 , Expires: 04/19/2023 Start: 02-17-2023 End: 04-19-2023 IMMUNOGLOBULINS YARI IMMUNOGLOBULINS YARI Lab Routine Sedimentation rate elevation Expected: 02/17/2023, Expires: 04/19/2023 [facility] Work Phone: Comment on above: Expected: 02/17/2023 , Expires: 04/19/2023 Start: 02-17-2023 End: 04-19-2023 PROTEIN ELECTROPHORESIS SERUM W/INTERP PROTEIN ELECTROPHORESIS SERUM W/INTERP Lab Routine Sedimentation rate elevation Expected: 02/17/2023, Expires: 04/19/2023 [facility] Work Phone: Comment on above: Expected: 02/17/2023 , Expires: 04/19/2023 Start: 01-09-2023 Covid-19 Vaccine ( season) Covid-19 Vaccine ( season) [facility] Start: 01-09-2023 Influenza vaccination C [facility] Start: 05-11-2022 Depression Assessment Depression Ass essment [facility] Start: 12-25-2013 HPV Testing HPV Testing [facility] Start: 12-25-2013 Screening for malign ant neoplasm of cervix HPV Testing [facility] Start: 12-25-2004 Pap Testing Pap Testing [facility] Start: 12-25-2004 Screening for malign ant neoplasm of cervix Pap Testing [facility] Start: 12-25-2002 DTaP,Tdap and Td Vac cines (1 - Tdap) DTaP,Tdap and Td Vaccines (1 - Tdap) [facility] Start: 12-25-2002 Hepatitis B Vaccine (1 of 3 - 19+ 3-dose series) Hepatitis B Vaccine (1 of 3 - 19+ 3-dose series) [facility] Start: 12-25-2002 Urine microalbumin profile DTaP,Tdap,Td Vaccine (1 - Tdap) [facility] Start: 12-25-2001 Adult BMI Follow Up Plan Adult BMI F ollow Up Plan [facility] Start: 12-25-2001 Hepatitis C Screening Hepatitis C [facility] Start: 12-25-2001 Hepatitis C screening Hepatitis C [facility] Start: 12-25-2001 HIV Screening HIV Screening [facility] Start: 12-25-2001 HIV screening HIV Screening [facility] Start: 1985 Hepatitis B Vaccine (1 of 3 - 3-dose series) Hepatitis B Vaccine (1 of 3 - 3-dose series) [facility] End: 07-14-2024 Inhibitor screen Inhibitor screen Lab Routine Elevated partial thromboplastin time (PTT) 1 Occurrences starting 07/15/2023 until 07/14/2024 [facility] Work Phone: Comment on above: 1 Occurrences starti ng 07/15/2023 until 07/14/2024 SWAB COLLECTION SPECIMEN SWAB CO LLECTION SPECIMEN Lab Routine Family history of autism Ordered: 08/31/2023 [facility] Work Phone: Comment on above: Ordered: 08/31/2023 Problems Active Problems Problem Classification Problem Date [...] 03-04-2022 Episodic Other aftercare (1 source) 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; Translations: [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] Onset: 03-05-2022 Episodic Other aftercare (1 source) custodial (current) use of oral hypoglycemic drugs; Translations: [FDC USE ORAL HYPOGLYCEMIC DX] Onset: 01-16-2022 Episodic [...] Translations: [LOW BACK PAIN, UNSPECIFIED] Onset: 08-13-2021 Procedures Date Procedure Procedure Detail Performing Clinician Start: 04-14-2023 Adult depression screening assessment Taqueria Solis MD Work Phone: Arthroscopy of knee Allison Gordonsrinviasa Work Phone: [facility] Work Phone: Dilation and curettage Allison Bullock [employer] Work Phone: Hysterectomy Allison Gordonpham z Work Phone: NEGATED: Highlighted row has not occurred! Colonoscopy Allison Gordonsrinivasa Work Phone: Results Test Name Value Interpretation Reference Range Facility 50/50 MIX STUDYon 07-24-2023 aPTT Coag (Bld) [Time] 42 s High 26-37 [facility] Comment on above: Performed By: #### P INR, 69808-3 #### [facility] ([id number]) [address] [place] [address] 57402 #### CMP, FEPR, 2276-4, CBCA #### [facility] ([id number]) [address] [place] [address] aPTT Coag (Bld) [Time] 35 s Normal 26-37 [facility] Comment on above: Performed By: #### P INR, 31611-4 #### [facility] ([id number]) [address] [place] [address] 60329 #### CMP, FEPR, 2276-4, CBCA #### [facility] ([id number]) [address], [address] [place] [address] PT Coag (PPP) [Time] 11.8 s Normal 9.8-13.2 [facility] Comment on above: Performed By: #### P INR, 34376-0 #### [facility] ([id number]) [address] [place] [address] 480[address] #### CMP, FEPR, 2275-4, CBCA #### [facility] ([id number]) [address] [place] [address] Coagulation factor IX activi ty actual/normal Coag (PPP) [Relative time]on 07-24-2023 FACTOR 9 ASSAY 134 % act Normal 65-150 [facility] Comment on above: Performed By: #### P INR, 93365-1 #### [facility] ([id number]) [address] [place] [address] 12607 #### CMP, FEPR, 6-4, CBCA #### [facility] ([id number]) [address], [address] [place] [address] Coagulation factor VIII acti vity actual/normal Coag (PPP) [Relative time]on 07-24-2023 FACTOR 8 ASSAY 120 % act Normal 50-150 [facility] Comment on above: Performed By: #### P INR, 52975-9 #### [facility] ([id number]) [address] [place] [address] 30385 #### CMP, FEPR, 2276-4, CBCA #### [facility] ([id number]) [address] [place] [address] Coagulation factor XI activi ty actual/normal Coag (PPP) [Relative time]on 07-24-2023 FACTOR 11 ASSAY 153 % act High 65-150 [facility] Comment on above: Performed By: #### P INR, 87634-9 #### [facility] ([id number]) [address] [place] [address] 25604 #### CMP, FEPR, 2276-4, CBCA #### [facility] ([id number]) [address] [place] [address] Coagulation factor XII activ ity actual/normal Coag (PPP) [Relative time]on 07-24-2023 FACTOR 12 ASSAY 86 % act Normal 50-150 [facility] Comment on above: Performed By: #### P INR, 77900-5 #### [facility] ([id number]) [address] [place] [address] 34980 #### CMP, FEPR, 2276-4, CBCA #### [facility] ([id number]) [address] [place] [address] [facility] ORDERon 024 TEST NAME [id number] VWF COLLAGEN III BINDING NACIT PLASMA Normal [facility] Comment on above: Result Comment: Maria Alejandra ected on 07/14 AT 1430: Previously reported as [id number] VWF COLLAGEN III BINDING Performed By: #### P INR, 83368-3 #### [facility] ([id number]) [address] [place] [address] 39132 #### CMP, FEPR, 2276-4, CBCA #### [facility] ([id number]) [address] [place] [address], [address] [place] [address] TEST NAME [id number] VWF GPIBM ACTIVITY NACIT PLASMA Normal [facility] Comment on above: Performed By: #### P INR, 59096-3 #### [facility] ([id number]) [address] [place] [address] 7[address] #### CMP, FEPR, 2276-4, CBCA #### [facility] ([id number]) [address] [place] [address], [address] [place] [address] TEST RESULT SEE NOTE Normal [facility] Comment on above: Result Comment: NOTE Test name Result Flag Units RefIntvl VWF Collagen III Binding 110 IU/dL 50-203 For additional information, please visit [email or web address] This test was developed and its performance characteristics determined by [facility]. It has not been cleared or approved by the [place] Food and Drug Administration. This test is used for clinical purposes. It should not be regarded as investigational or for research. This laboratory is certified under the Clinical Laboratory Improvement Amendments (CLIA) as qualified to perform high complexity clinical laboratory testing. Performed by: [facility]. [address] [place] [address] Performed By: #### P INR, 05851-1 #### [facility] ([id number]) [address] [place] [address] 19900 #### CMP, FEPR, 2276-4, CBCA #### [facility] ([id number]) [address] [place] [address], [address] [place] [address] Result Comment: NOTE Test name Result Flag Units RefIntvl VWF GPIbM Activity 86 IU/dL 52-180 For additional information, please visit [email or web address] This test was developed and its performance characteristics determined by [facility]. It has not been cleared or approved by the [place] Food and Drug Administration. This test is used for clinical purposes. It should not be regarded as investigational or for research. This laboratory is certified under the Clinical Laboratory Improvement Amendments (CLIA) as qualified to perform high complexity clinical laboratory testing. Performed by: [facility]. [address] [place] [address] CBC AND AUTO DIFFon 07-13-19 24 ABSOLUTE BASOPHIL 0.0 X10E9/L Normal 0.0-0.2 [facility] Comment on above: Performed By: #### P INR, 57574-9 #### [facility] ([id number]) [address] [place] [address] 20055 #### CMP, FEPR, 2276-4, CBCA #### [facility] ([id number]) [address] [facility], [address] [place] [address] ABSOLUTE NEUTROPHIL 5.0 X10E9/L Normal 1.5-6.6 [facility] Comment on above: Performed By: #### P INR, 80790-0 #### [facility] ([id number]) [address] [place] [address] 56062 #### CMP, FEPR, 2276-4, CBCA #### [facility] ([id number]) [address] [place] [address] Basophils/100 WBC (Bld) 0.3 % Normal [facility] Comment on above: Performed By: #### P INR, 60898-2 #### [facility] ([id number]) [address] [place] [address] 81202 #### CMP, FEPR, 6-4, CBCA #### [facility] ([id number]) [address] [place] [address] Eosinophils (Bld) [#/Vol] 0.1 10*3/uL Normal 0.0-0.4 [facility] Comment on above: Performed By: #### P INR, 23343-9 #### [facility] ([id number]) [address] [place] [address] 54650 #### CMP, FEPR, 2275-08, CBCA #### [facility] ([id number]) [address] [place] [address] Eosinophils/100 WBC (Bld) 1.3 % Normal [facility] Comment on above: Performed By: #### P INR, 84198-6 #### [facility] ([id number]) [address] [place] [address] 92729 #### CMP, FEPR, 2275-08, CBCA #### [facility] ([id number]) [address] [place] [address] Erythrocyte distribution width (RBC) [Ratio] 13.2 % Normal 11.5-15.0 [facility] Comment on above: Performed By: #### P INR, 08060-0 #### [facility] ([id number]) [address] [place] [address] 77262 #### CMP, FEPR, 2275-08, CBCA #### [facility] ([id number]) [address] [place] [address] Hematocrit (Bld) [Volume fraction] 42.4 % Normal 35-47 [facility] Comment on above: Performed By: #### P INR, 03680-7 #### [facility] ([id number]) [address] [place] [address] 90046 #### CMP, FEPR, 6-4, CBCA #### [facility] ([id number]) [address] [place] [address] Hemoglobin (Bld) [Mass/Vol] 13.9 g/dL Normal 11.7-15.5 [facility] Comment on above: Performed By: #### P INR, 77424-9 #### [facility] ([id number]) [address] [place] [address] 00491 #### CMP, FEPR, 2275-4, CBCA #### [facility] ([id number]) [address] [place] [address] Lymphocytes (Bld) [#/Vol] 2.0 10*3/uL Normal 1.0-3.5 [facility] Comment on above: Performed By: #### P INR, 62138-8 #### [facility] ([id number]) [address] [place] [address] 79336 #### CMP, FEPR, 2275-, CBCA #### [facility] ([id number]) [address] [place] [address] Lymphocytes/100 WBC (Bld) 26.7 % Normal [facility] Comment on above: Performed By: #### P INR, 19817-6 #### [facility] ([id number]) [address] [place] [address] 90991 #### CMP, FEPR, 6-4, CBCA #### [facility] ([id number]) [address] [place] [address] MCH (RBC) [Entitic mass] 29.6 pg Normal 27-34 [facility] Comment on above: Performed By: #### P INR, 12047-4 #### [facility] ([id number]) [address] [place] [address] 44655 #### CMP, FEPR, 2275-4, CBCA #### [facility] ([id number]) [address] [facility], [address] [place] [address] MCHC (RBC) [Mass/Vol] 32.8 g/dL Normal 32-36 [facility] Comment on above: Performed By: #### P INR, 51884-6 #### [facility] ([id number]) [address] [place] [address] 19601 #### CMP, FEPR, 2275-08, CBCA #### [facility] ([id number]) [address], [address] [place] [address] MCV (RBC) [Entitic vol] 90 fL Normal 80-100 [facility] Comment on above: Performed By: #### P INR, 90246-5 #### [facility] ([id number]) [address] [place] [address] 68350 #### CMP, FEPR, 2275-08, CBCA #### [facility] ([id number]) [address] [facility], [address] [place] [address] Monocytes (Bld) [#/Vol] 0.5 10*3/uL Normal 0-0.9 [facility] Comment on above: Performed By: #### P INR, 67133-0 #### [facility] ([id number]) [address] [place] [address] 55719 #### CMP, FEPR, 2275-4, CBCA #### [facility] ([id number]) [address] [facility], [address] [place] [address] Monocytes/100 WBC (Bld) 6.9 % Normal [facility] Comment on above: Performed By: #### P INR, 25662-0 #### [facility] ([id number]) [address] [place] [address] 63481 #### CMP, FEPR, 2276-4, CBCA #### [facility] ([id number]) [address] [facility], [address] [place] [address] Neutrophils/100 WBC (Bld) 64.8 % Normal [facility] Comment on above: Performed By: #### P INR, 55183-4 #### [facility] ([id number]) [address] [place] [address] 22548 #### CMP, FEPR, 2275-4, CBCA #### [facility] ([id number]) [address] [facility], [address] [place] [address] Platelet mean volume (Bld) [Entitic vol] 11.5 fL Normal 7-12 [facility] Comment on above: Performed By: #### P INR, 18623-5 #### [facility] ([id number]) [address] [place] [address] 57497 #### CMP, FEPR, 4, CBCA #### [facility] ([id number]) [address] [address] [facility], [address] [place] [address] Platelets (Bld) [#/Vol] 205 10*3/uL Normal 150-450 [facility] Comment on above: Performed By: #### P INR, 05233-8 #### [facility] ([id number]) [address] [place] [address] 99643 #### CMP, FEPR, 6-4, CBCA #### [facility] ([id number]) [address] [address], [address] [place] [address] RBC COUNT 4.70 X10E12/L Normal 3.80-5.20 [facility] Comment on above: Performed By: #### P INR, 10333-9 #### [facility] ([id number]) [address] [place] [address] 75093 #### CMP, FEPR, 2276-4, CBCA #### [facility] ([id number]) [address] [facility], [address] [place] [address] WBC (Bld) [#/Vol] 7.7 10*3/uL Normal 4.0-11.0 [facility] Comment on above: Performed By: #### P INR, 37477-9 #### [facility] ([id number]) [address] [place] [address] 98201 #### CMP, FEPR, 6-4, CBCA #### [facility] ([id number]) [address] [facility], [address] [place] [address] COMPREHENSIVE METABOLIC PANE Drew 07-13-2023 Albumin [Mass/Vol] 4.6 g/dL Normal 3.2-5.3 [facility] Comment on above: Performed By: #### P INR, 75903-8 #### [facility] ([id number]) [address] [place] [address] 44732 #### CMP, FEPR, 2276-4, CBCA #### [facility] ([id number]) [address] [facility], [address] [place] [address] ALP [Catalytic activity/Vol] 118 U/L Normal 39-130 [facility] Comment on above: Performed By: #### P INR, 42883-4 #### [facility] ([id number]) [address] [place] [address] 19229 #### CMP, FEPR, 2276-4, CBCA #### [facility] ([id number]) [address], [address] [place] [address] ALT [Catalytic activity/Vol] 12 U/L Normal 0-31 [facility] Comment on above: Performed By: #### P INR, 87546-0 #### [facility] ([id number]) [address] [place] [address] 01518 #### CMP, FEPR, 2276-4, CBCA #### [facility] ([id number]) [address], [address] [place] [address] Anion gap [Moles/Vol] 10 mmol/L Normal 5-15 [facility] Comment on above: Performed By: #### P INR, 42105-7 #### [facility] ([id number]) [address] [place] [address] 55598 #### CMP, FEPR, 2276-4, CBCA #### [facility] ([id number]) [address] [facility], [address] [place] [address] AST [Catalytic activity/Vol] 13 U/L Normal 0-41 [facility] Comment on above: Performed By: #### P INR, 05784-0 #### [facility] ([id number]) [address] [place] [address] 98707 #### CMP, FEPR, 2276-4, CBCA #### [facility] ([id number]) [address], [address] [place] [address] Bilirubin [Mass/Vol] 0.4 mg/dL Normal 0.3-1.2 [facility] Comment on above: Performed By: #### P INR, 45073-3 #### [facility] ([id number]) [address] [place] [address] 23471 #### CMP, FEPR, 2276-4, CBCA #### [facility] ([id number]) [address], [address] [place] [address] Calcium [Mass/Vol] 9.8 mg/dL Normal 8.5-10.5 [facility] Comment on above: Performed By: #### P INR, 34911-8 #### [facility] ([id number]) [address] [place] [address] 26857 #### CMP, FEPR, 2276-4, CBCA #### [facility] ([id number]) [address], [address] [place] [address] Chloride [Moles/Vol] 105 mmol/L Normal 98-109 [facility] Comment on above: Performed By: #### P INR, 73199-6 #### [facility] ([id number]) [address] [place] [address] 65880 #### CMP, FEPR, 2276-4, CBCA #### [facility] ([id number]) [address] [facility], [address] [place] [address] CO2 [Moles/Vol] 27 mmol/L Normal 22-32 [facility] Comment on above: Performed By: #### P INR, 92928-5 #### [facility] ([id number]) [address] [place] [address] 18606 #### CMP, FEPR, 6-4, CBCA #### [facility] ([id number]) [address] [facility], [address] [place] [address] Creatinine [Mass/Vol] 0.75 mg/dL Normal 0.40-1.00 [facility] Comment on above: Result Comment: METH OD TRACEABLE TO IDMS STANDARD Performed By: #### P INR, 05165-0 #### [facility] ([id number]) [address] [place] [address] 48748 #### CMP, FEPR, 6-4, CBCA #### [facility] ([id number]) [address] [facility], [address] [place] [address] eGFR (CKD-EPI) NON-RACE DEPENDENT >90 Normal >59 [facility] Comment on above: Result Comment: Reported eGFR is based on the CKD-EPI 2020 equation that does not use a race coefficient. Performed By: #### P INR, 98929-6 #### [facility] ([id number]) [address] [place] [address] 22318 #### CMP, FEPR, 2276-4, CBCA #### [facility] ([id number]) [address] [facility], [address] [place] [address] Glucose [Mass/Vol] 87 mg/dL Normal 65-99 [facility] Comment on above: Performed By: #### P INR, 95162-6 #### [facility] ([id number]) [address] [place] [address] 54280 #### CMP, FEPR, 2276-4, CBCA #### [facility] ([id number]) [address] [facility], [address] [place] [address] Potassium [Moles/Vol] 4.0 mmol/L Normal 3.5-5.0 [facility] Comment on above: Performed By: #### P INR, 83310-3 #### [facility] ([id number]) [address] [place] [address] 43977 #### CMP, FEPR, 2276-4, CBCA #### [facility] ([id number]) [address] [facility], [address] [place] [address] Protein [Mass/Vol] 7.7 g/dL Normal 6.0-8.0 [facility] Comment on above: Performed By: #### P INR, 25260-0 #### [facility] ([id number]) [address] [place] [address] 09327 #### CMP, FEPR, 6-4, CBCA #### [facility] ([id number]) [address] [facility], [address] [place] [address] Sodium [Moles/Vol] 142 mmol/L Normal 134-146 [facility] Comment on above: Performed By: #### P INR, 47475-5 #### [facility] ([id number]) [address] [place] [address] 97876 #### CMP, FEPR, 6-4, CBCA #### [facility] ([id number]) [address] [place] [address], [address] [place] [address] Urea nitrogen [Mass/Vol] 13 mg/dL Normal 5-23 [facility] Comment on above: Performed By: #### P INR, 48196-9 #### [facility] ([id number]) [address] [place] [address] 87649 #### CMP, FEPR, 6-4, CBCA #### [facility] ([id number]) [address] [place] [address], [address] [place] [address] Coagulation factor VIII acti vity actual/normal Coag (PPP) [Relative time]on 07-13-2023 FACTOR 8 ASSAY 97 % act Normal 50-150 [facility] Comment on above: Performed By: #### P INR, 58287-0 #### [facility] ([id number]) [address] [place] [address] 85411 #### CMP, FEPR, 2276-4, CBCA #### [facility] ([id number]) [address] [place] [address], [address] [place] [address] FERRITINon 07-13-2023 Ferritin [Mass/Vol] 60 ng/mL Normal 11-[address] [facility] Comment on above: Performed By: #### P INR, 91791-6 #### [facility] ([id number]) [address] [place] [address] 85166 #### CMP, FEPR, 2276-4, CBCA #### [facility] ([id number]) [address] [place] [address], [address] [place] [address] IRON PROFILEon 07-13-2023 Iron [Mass/Vol] 66 ug/dL Normal 50-170 [facility] Comment on above: Performed By: #### P INR, 44743-4 #### [facility] ([id number]) [address] [place] [address] 97587 #### CMP, FEPR, 2276-4, CBCA #### [facility] ([id number]) [address] [place] [address], [address] [place] [address] 87754 IRON BINDING 318 ug/dL Normal 250-425 [facility] Comment on above: Performed By: #### P INR, 59070-9 #### [facility] ([id number]) [address] [place] [address] 67547 #### CMP, FEPR, 2276-4, CBCA #### [facility] ([id number]) [address] [place] [address], [address] [place] [address] 72207 IRON SATURATION 21 % SATURATION Normal 15-50 [facility] Comment on above: Performed By: #### P INR, 71682-7 #### [facility] ([id number]) [address] [place] [address] 90657 #### CMP, FEPR, 2276-4, CBCA #### [facility] ([id number]) [address] [place] [address], [address] [address] Laboratory comment Aftab (Repo rt)on 07-13-2023 UNLISTED LAB TEST Sent to reference lab Normal [facility] Comment on above: Performed By: #### A GO #### [facility] ([id number]) [address] [place] [address] 45931 Performed By: #### P INR, 55709-3 #### [facility] ([id number]) [address] [place] [address] 55075 #### CMP, FEPR, 2276-4, CBCA #### [facility] ([id number]) [address] [facility], [address] [place] [address] PROTIME AND INRon 07-13-2023 INR Coag (PPP) [Relative time] 1.0 {INR} Normal 0.8-1.1 [facility] Comment on above: Performed By: #### P INR, 99501-3 #### [facility] ([id number]) [address] [place] [address] 76624 #### CMP, FEPR, 6-4, CBCA #### [facility] ([id number]) [address] [facility], [address] [place] [address] PT Coag (PPP) [Time] 12.0 s Normal 9.8-13.2 [facility] Comment on above: Result Comment: NEW REFERENCE RANGE Performed By: #### P INR, 32897-1 #### [facility] ([id number]) [address] [place] [address] 58034 #### CMP, FEPR, 6-4, CBCA #### [facility] ([id number]) [address] [facility], [address] [place] [address] aPTT Coag (PPP) [Time]on aPTT Coag (Bld) [Time] 46 s High 26-37 [facility] Comment on above: Result Comment: NEW REFERENCE RANGE Performed By: #### P INR, 58104-1 #### [facility] ([id number]) [address] [place] [address] 65303 #### CMP, FEPR, 2276-4, CBCA #### [facility] ([id number]) [address] [place] [address] vWf Ag IA Qn (PPP)on 024 VON WIL[place]AND AG 118 % Normal 50-150 [facility] Comment on above: Result Comment: It has [...] 69:1691, 1989 Performed By: #### P INR, 91627-9 #### [facility] ([id number]) [address] [place] [address] #### LAWSON GILR, 2276-4, CBCA #### [facility] ([id number]) [address] [facility], [address] [place] [address] vWf.activity actual/normal I A (PPP) [Relative ratio]on 07-13-2023 von Willebrand Factor Activity 88 % Normal 50-200 [facility] Comment on above: Performed By: #### P INR, 59715-3 #### [facility] ([id number]) [address] [place] [address] #### L[place], FEPR, 2276-4, CBCA #### [facility] ([id number]) [address] [place] [address] 25(OH)D[address] [facility] 2022 25-hydroxyvitamin D3 [Mass/Vol] 14.6 ng/mL Low 31.0-80.0 [facility] Comment on above: Order Comment: Speci men Type: BLOOD SPECIMEN Ordering Facility: [facility] Address: [address] [place] [address] Result Comment: Clas sification of 25 [place] Vitamin D status: Deficiency/Insufficiency: < or = 30 ng/ml. Sufficiency/Optimal Levels: 31-80 ng/mL Toxicity: > 100 ng/mL. Test performed by chemiluminescent immunoassay. Performed By: #### 1 989-3 #### [facility] CLIA [id number] [address] [place] [address] [place] CBC W Auto Differential pane l (Bld)on 02-17-2023 Basophils (Bld) [#/Vol] 0.03 10*3/uL Normal <0.11 [facility] Comment on above: Order Comment: Speci men Type: BLOOD SPECIMEN Ordering Facility: [facility] Address: [address] [place] [address] Performed By: #### 5 7021-8 #### [facility] CLIA [id number] [address] [place] [address] [place] Basophils (Bld) [#/Vol] 0.03 10*3/uL <0.11 k/uL [facility] Basophils/100 WBC (Bld) 0.3 % Normal [facility] Comment on above: Order Comment: Speci men Type: BLOOD SPECIMEN Ordering Facility: [facility] Address: [address] [place] [address] Performed By: #### 5 7021-8 #### [facility] CLIA [id number] [address] [place] [address] [place] Basophils/100 WBC (Bld) 0.3 % [facility] Differential cell count method Nom (Bld) Auto Normal [facility] Comment on above: Order Comment: Speci men Type: BLOOD SPECIMEN Ordering Facility: [facility] Address: [address] [place] [address] Performed By: #### 5 7021-8 #### [facility] CLIA [id number] [address] [place] [address] [place] Differential cell count method Nom (Bld) Auto [facility] Eosinophils (Bld) [#/Vol] 0.12 10*3/uL Normal <0.46 [facility] Comment on above: Order Comment: Speci men Type: BLOOD SPECIMEN Ordering Facility: [facility] Address: [address] [place] [address] Performed By: #### 5 7021-8 #### [facility] CLIA [id number] [address] [place] [address] [place] Eosinophils (Bld) [#/Vol] 0.12 10*3/uL <0.46 k/uL [facility] Eosinophils/100 WBC (Bld) 1.2 % Normal [facility] Comment on above: Order Comment: Speci men Type: BLOOD SPECIMEN Ordering Facility: [facility] Address: [address] [place] [address] Performed By: #### 5 7021-8 #### [facility] CLIA [id number] [address] [place] [address] [place] Eosinophils/100 WBC (Bld) 1.2 % [facility] Erythrocyte distribution width (RBC) [Ratio] 12.7 % Normal 11.5-15.0 [facility] Comment on above: Order Comment: Speci men Type: BLOOD SPECIMEN Ordering Facility: [facility] Address: [address] [place] [address] Performed By: #### 5 7021-8 #### [facility] CLIA [id number] [address] [place] [address] [place] Erythrocyte distribution width (RBC) [Ratio] 12.7 % 11.5 - 15.0 % [facility] Hematocrit (Bld) [Volume fraction] 44.5 % Normal 36.0-46.0 [facility] Comment on above: Order Comment: Speci men Type: BLOOD SPECIMEN Ordering Facility: [facility] Address: [address] [place] [address] Performed By: #### 5 7021-8 #### [facility] CLIA [id number] [facility] [place] [address] [place] Hematocrit (Bld) [Volume fraction] 44.5 % 36.0 - 46.0 % [facility] Hemoglobin (Bld) [Mass/Vol] 14.4 g/dL Normal 11.5-15.5 [facility] Comment on above: Order Comment: Speci men Type: BLOOD SPECIMEN Ordering Facility: [facility] Address: [address] [place] [address] Performed By: #### 5 7021-8 #### [facility] CLIA [id number] [address] [place] [address] [place] Hemoglobin (Bld) [Mass/Vol] 14.4 g/dL 11.5 - 15.5 g/dL [facility] Immature granulocytes (Bld) [#/Vol] 0.03 10*3/uL Normal <0.10 [facility] Comment on above: Order Comment: Speci men Type: BLOOD SPECIMEN Ordering Facility: [facility] Address: [address] [place] [address] Performed By: #### 5 7021-8 #### [facility] [place] [id number] [address] [place] [address] [place] Immature granulocytes (Bld) [#/Vol] 0.03 10*3/uL <0.10 k/uL [facility] Immature granulocytes/100 WBC (Bld) 0.3 % Normal [facility] Comment on above: Order Comment: Speci men Type: BLOOD SPECIMEN Ordering Facility: [facility] Address: [address] [place] [address] Performed By: #### 5 7021-8 #### [facility] [place] [id number] [address] [place] [address] [place] Immature granulocytes/100 WBC (Bld) 0.3 % [facility] Lymphocytes (Bld) [#/Vol] 1.93 10*3/uL Normal 1.00-4.00 [facility] Comment on above: Order Comment: Speci men Type: BLOOD SPECIMEN Ordering Facility: [facility] Address: [address] [place] [address] Performed By: #### 5 7021-8 #### [facility] CLIA [id number] [address] [place] [address] [place] Lymphocytes (Bld) [#/Vol] 1.93 10*3/uL 1.00 - 4.00 k/uL [facility] Lymphocytes/100 WBC (Bld) 19.7 % Normal [facility] Comment on above: Order Comment: Speci men Type: BLOOD SPECIMEN Ordering Facility: [facility] Address: [address] [place] [address] Performed By: #### 5 7021-8 #### [facility] CLIA [id number] [address] [place] [address] [place] Lymphocytes/100 WBC (Bld) 19.7 % [facility] MCH (RBC) [Entitic mass] 30.3 pg Normal 26.0-34.0 [facility] Comment on above: Order Comment: Speci men Type: BLOOD SPECIMEN Ordering Facility: [facility] Address: [address] [place] [address] Performed By: #### 5 7021-8 #### [facility] CLIA [id number] [address] [place] [address] [place] MCH (RBC) [Entitic mass] 30.3 pg 26.0 - 34.0 pg [facility] MCHC (RBC) [Mass/Vol] 32.4 g/dL Normal 30.5-36.0 [facility] Comment on above: Order Comment: Speci men Type: BLOOD SPECIMEN Ordering Facility: [facility] Address: [address] [place] [address] Performed By: #### 5 7021-8 #### [facility] CLIA [id number] [address] [id number] [address] [place] MCHC (RBC) [Mass/Vol] 32.4 g/dL 30.5 - 36.0 g/dL [facility] MCV (RBC) [Entitic vol] 93.5 fL Normal 80.0-100.0 [facility] Comment on above: Order Comment: Speci men Type: BLOOD SPECIMEN Ordering Facility: [facility] Address: [address] [place] [address] Performed By: #### 5 7021-8 #### [facility] CLIA [id number] [facility] [place] [address] [place] MCV (RBC) [Entitic vol] 93.5 fL 80.0 - 100.0 fL [facility] Monocytes (Bld) [#/Vol] 0.78 10*3/uL Normal <0.87 [facility] Comment on above: Order Comment: Speci men Type: BLOOD SPECIMEN Ordering Facility: [facility] Address: [address] [place] [address] Performed By: #### 5 7021-8 #### [facility] CLIA [id number] [address] [place] [address] [place] Monocytes (Bld) [#/Vol] 0.78 10*3/uL <0.87 k/uL [facility] Monocytes/100 WBC (Bld) 7.9 % Normal [facility] Comment on above: Order Comment: Speci men Type: BLOOD SPECIMEN Ordering Facility: [facility] Address: [address] [place] [address] Performed By: #### 5 7021-8 #### [facility] CLIA [id number] [address] [place] [address] [place] Monocytes/100 WBC (Bld) 7.9 % [facility] Neutrophils (Bld) [#/Vol] 6.93 10*3/uL Normal 1.45-7.50 [facility] Comment on above: Order Comment: Speci men Type: BLOOD SPECIMEN Ordering Facility: [facility] Address: [address] [place] [address] Performed By: #### 5 7021-8 #### [facility] CLIA [id number] [address] [place] [address] [place] Neutrophils (Bld) [#/Vol] 6.93 10*3/uL 1.45 - 7.50 k/uL [facility] Neutrophils/100 WBC (Bld) 70.6 % Normal [facility] Comment on above: Order Comment: Speci men Type: BLOOD SPECIMEN Ordering Facility: [facility] Address: [address] [place] [address] Performed By: #### 5 7021-8 #### [facility] CLIA [id number] [address] [place] [address] [place] Neutrophils/100 WBC (Bld) 70.6 % [facility] Nucleated RBC (Bld) [#/Vol] 10*3/uL Normal <0.01 [facility] Comment on above: Order Comment: Speci men Type: BLOOD SPECIMEN Ordering Facility: [facility] Address: [address] [place] [address] Performed By: #### 5 7021-8 #### [facility] CLIA [id number] [address] [place] [address] [place] Nucleated RBC (Bld) [#/Vol] <0.01 k/uL [facility] Nucleated RBC/100 WBC (Bld) [Ratio] 0.0 /100 WBC Normal [facility] Comment on above: Order Comment: Speci men Type: BLOOD SPECIMEN Ordering Facility: [facility] Address: [address] [place] [address] Performed By: #### 5 7021-8 #### [facility] CLIA [id number] [address] [place] [address] [place] Nucleated RBC/100 WBC (Bld) [Ratio] 0.0 /100 WBC [facility] Platelet mean volume (Bld) [Entitic vol] 13.2 fL High 9.0-12.7 [facility] Comment on above: Order Comment: Speci men Type: BLOOD SPECIMEN Ordering Facility: [facility] Address: [address] [place] [address] Performed By: #### 5 7021-8 #### [facility] CLIA [id number] [address] [place] [address] [place] Platelet mean volume (Bld) [Entitic vol] 13.2 fL High 9.0 - 12.7 fL [facility] Platelets (Bld) [#/Vol] 245 10*3/uL Normal 150-400 [facility] Comment on above: Order Comment: Speci men Type: BLOOD SPECIMEN Ordering Facility: [facility] Address: [address] [place] [address] Result Comment: Resu lts checked and verified.No clot detected. Performed By: #### 5 7021-8 #### [facility] CLIA [id number] [address] [place] [address] [place] Platelets (Bld) [#/Vol] 245 10*3/uL 150 - 400 k/uL [facility] RBC (Bld) [#/Vol] 4.76 10*6/uL Normal 3.90-5.20 [facility] Comment on above: Order Comment: Speci men Type: BLOOD SPECIMEN Ordering Facility: [facility] Address: [address] [place] [address] Performed By: #### 5 7021-8 #### [facility] CLIA [id number] [address] [place] [address] [place] RBC (Bld) [#/Vol] 4.76 10*6/uL 3.90 - 5.2 0 m/uL [facility] WBC (Bld) [#/Vol] 9.82 10*3/uL Normal 3.70-11.00 [facility] Comment on above: Order Comment: Speci men Type: BLOOD SPECIMEN Ordering Facility: [facility] Address: [address] [place] [address] Performed By: #### 5 7021-8 #### [facility] CLIA [id number] [address] [place] [address] [place] WBC (Bld) [#/Vol] 9.82 10*3/uL 3.70 - 11. 00 k/uL [facility] CNOVon 02-17-2023 CNOV Office Visit (DORIE ) DENISHA VELASCO ([id number]) 1985 F Date Time Provider Department 02/17/23 9:00 AM ALBERTO MARCUS During your visit today, we recorded the following information about you: Pulse Blood pressure Weight 96/minute 116/82 126.6 kg Alberto Marcus MD 02/17/2023 10:02 AM Signed [facility] Date of Service: 02/17/2023 Patient: Denisha Velasco Medical Record: [id number] Last Rheumatology visit: None at [facility] History of Present Illness Denisha Velasco [...] other than (more content not included)... Normal [facility] VITAMIN D 25 HYDROXYon 02-17 25-hydroxyvitamin D3 [Mass/Vol] 14.6 ng/mL Low 31.0 - 80.0 ng/mL [facility] Vit B12 SerPl-mCncon 023 Cobalamin (Vitamin B12) [Mass/Vol] 347 pg/mL Normal 232-1245 [facility] Comment on above: Order Comment: Speci men Type: BLOOD SPECIMEN Ordering Facility: [facility] Address: [address] [place] [address] Performed By: #### 2 132-9 #### [facility] CLIA [id number] [place] [address] [place] SARS-CoV2 IgMon 07-07-2022 Comment Notes Normal [facility] Comment on above: Result Comment: Nega tive results to antibodies against SARS-CoV-2 are generally indicative of non-exposure to virus and lack of longevity of antibody response. Performed By: #### C VDABM #### [facility] [address] [address] [address] Karey Ordoñez Disclaimer Notes [facility] Comment on above: Result Comment: This is a lab developed test. This test has been validated in accordance with [facility] guidelines and FDA guidance document (Policy [...] due to past or present infection with vsp-FPRN-NpW-2 coronavirus strains, such as coronavirus HKU1, NL63, OC43, or 229E. Performed By: #### C VDABM #### [facility] [address] [place] [address] Dr. Karey Ordoñez Electronically Signed By Comment Normal [facility] Comment on above: Result Comment: Fernando Scales Performed By: #### C VDABM #### [facility] [address] [place] [address] Dr. Karey Ordoñez Methodology Comment Normal [facility] Comment on above: Result Comment: Chem iluminescence Performed By: #### C VDABM #### [facility] [address] [place] [address] Dr. Karey Ordoñez References Notes [facility] Comment on above: Result Comment: Sheldon Godinez, Sheldon Maria, Roly Bass, Jeffry Summers, Hola Ordoñez, Dariela Bass., et. al. (2019). Profiling early humoral response to diagnose novel coronavirus disease (COVID-19). Clinical Infectious Diseases. Lorri Mosley et al. (2020) Profile of Specific Antibodies to SARS-CoV-2: The First Report Journal of Infection (2020), doi: https://doi.org/10.1016/j.jinf.2020.03.052 Charan Rodriguez et al. (2020). Antibody responses to SARS-CoV-2 in COVID-19 patients: the perspective application of serological tests in clinical practice. [id number]. Performed By: #### C VDABM #### [facility] [address] [place] [address] Dr. Karey Ordoñez Result Negative Normal [facility] Comment on above: Performed By: #### C VDABM #### [facility] [address] [place] [address] Dr. Karey Ordoñez Value 0.03 COI Normal [facility] Comment on above: Result Comment: <0.8 : Negative 0.8-<1.0: Indeterminate >=1.0: Positive Performed By: #### C VDABM #### [facility] [address] [place] [address] Dr. Karey Ordoñez SARS-CoV2 IgGon 07-04-2022 SARS-CoV-2 (COVID-19) IgG IA.rapid Ql (S/P/Bld) >800.0 Normal Neg <13.0 [facility] Comment on above: Performed By: #### C VDIGG #### [facility] [address] [place] [address] Dr. Karey Ordoñez SARS-CoV-2 (COVID-19) RNA RUBY+probe Ql (Unsp spec) Positive Normal [facility] Comment on above: Result Comment: Anti bodies against the SARS-CoV-2 spike protein, including the receptor binding domain (RBD) were detected. It is not yet known what level of antibody to SARS-CoV-2 spike protein correlates to immunity against developing symptomatic SARS-CoV-2 disease. This assay was performed using [employer](R) SARS-CoV-2 Trimeric S IgG assay. Performed By: #### C VDIGG #### [facility] [address] [place] [address] Dr. Karey Ordoñez Office Visit (Cardiology)on 06-30-2022 Follow-up visit Diagnoses/Problems Assessed Benign essential hypertension (401.1) (I10) Vertigo (780.4) (R42) Morbid obesity with BMI of 45.0-49.9, adult (278.01,V85.42) (E66.01,Z68.42) Never smoker Orders Morbid obesity with BMI of 45.0-49.9, adult Healthy Weight Tips; Status:Complete - Retrospective Authorization; Done: [id number] Some eating tips that can help you lose weight.; Status:Complete - Retrospective Authorization; Done: [id number] SocHx: Never smoker Tobacco Use Screening; Status:Complete; Done: [id number] Patient Instructions Please bring all medicines, vitamins, [...] negative for complaint. Vitals Vital Signs Recorded: [id number] 09:45AM Heart Rate74, R Radial Dlmbhsyg560, RUE, Sitting Kwuqiwxxq77, RUE, Sitting Height5 ft 3 in Lxwdmc331 lb BMI Latodluefg30.42 kg/m2 BSA Calculated2.23 Tobacco Useb) No PHQ-2 [...] . Abdomen: (more content not included)... Normal [facility] Tobacco Screening.on 023 Adult depression screening assessment No [facility] 250 DO Work Phone: Fall risk assessment a) No falls within the last year [facility] 250 DO Work Phone: Tobacco use status [facility] b) No [facility] 250 DO Work Phone: FREE T4on 05-12-2022 Free T4 [Mass/Vol] 1.11 ng/dL Normal 0.76-1.46 [facility] Comment on above: Performed By: #### F T4 #### [facility] [address] [place] [address] Dr. Karey Ordoñez GLYCOHEMOGLOBIN A1Con 2022 ADA RECOMMENDATION SEE BELOW Normal [facility] Comment on above: Result Comment: ADA RECOMMENDED LIMIT 4.0 - 6.0 ADA THERAPEUTIC TARGET < 7.0 ACTION SUGGESTED > 7.0 Performed By: #### F T4 #### [facility] [address] [place] [address] Dr. Karey Ordoñez Glucose [Mass/Vol] 114 mg/dL Normal [facility] Comment on above: Performed By: #### F T4 #### [facility] [address] [place] [address] Dr. Karey Ordoñez HbA1c (Bld) [Mass fraction] 5.6 % Normal 4.5-6.2 [facility] Comment on above: Performed By: #### F T4 #### [facility] [address] [place] [address] Dr. Karey Ordoñez PROF CHEM 8 (BAS METB)on Anion gap [Moles/Vol] 13.5 mmol/L Normal [facility] Comment on above: Performed By: #### T SH, BMP #### [facility] [address] [address] [address] Karey Ordoñez Calcium [Mass/Vol] 9.1 mg/dL Normal 8.5-10.[address] [facility] Comment on above: Performed By: #### T SH, BMP #### [facility] [address] [address] [address] Karey Ordoñez Chloride [Moles/Vol] 103 mmol/L Normal 98-107 [facility] Comment on above: Performed By: #### T SH, BMP #### [facility] [address] [place] [address] Dr. Karey Ordoñez CO2 [Moles/Vol] 26.7 mmol/L Normal 21.0-32.0 [facility] Comment on above: Performed By: #### T SH, BMP #### [facility] [address] [place] [address] Dr. Karey Ordoñez Creatinine [Mass/Vol] 0.79 mg/dL Normal 0.55-1.02 [facility] Comment on above: Performed By: #### T SH, BMP #### [facility] [address] [place] [address] Dr. Karey Ordoñez EGFR-AF [place] >60 Normal >=60 [facility] Comment on above: Performed By: #### T SH, BMP #### [facility] [address] [place] [address] Dr. Karey Ordoñez EGFR-NON AF [place] >60 Normal >=60 [facility] Comment on above: Performed By: #### T SH, BMP #### [facility] [address] [place] [address] Dr. Karey Ordoñez Glucose [Mass/Vol] 94 mg/dL Normal 74-[address] [facility] Comment on above: Performed By: #### T SH, BMP #### [facility] [address] [place] [address] Dr. Karey Ordoñez Potassium [Moles/Vol] 4.2 mmol/L Normal 3.5-5.1 [facility] Comment on above: Performed By: #### T SH, BMP #### [facility] [address] [place] [address] Dr. Karey Ordoñez Sodium [Moles/Vol] 139 mmol/L Normal 136-[address] [facility] Comment on above: Performed By: #### T SH, BMP #### [facility] [address] [address] [address] Karey Ordoñez Urea nitrogen [Mass/Vol] 12.0 mg/dL Normal 7.0-18.0 [facility] Comment on above: Performed By: #### T SH, BMP #### [facility] [address] [place] [address] Dr. Karey Ordoñez Urea nitrogen/Creatinine [Mass ratio] 15.2 mg/mg Normal [facility] Comment on above: Performed By: #### T SH, BMP #### [facility] [address] [place] [address] Dr. Karey Ordoñez TSHon 05-12-2022 TSH 1.098 uIU/mL Normal 0.358-3.740 [facility] Comment on above: Performed By: #### T SH, BMP #### [facility] [address] [place] [address] Dr. Karey Ordoñez FREE T3on 02-06-2022 FREE T3 1.79 pg/mlL Critically low 2.18-3.98 [facility] Comment on above: Performed By: #### F T3, TSH #### [facility] [address] [place] [address] Dr. Karey Ordoñez FREE T4on 02-06-2022 Free T4 [Mass/Vol] 1.12 ng/dL Normal 0.76-1.46 [facility] Comment on above: Performed By: #### F T4 #### [facility] [address] [place] [address] Dr. Karey Ordoñez TSHon 02-06-2022 TSH 2.571 uIU/mL Normal 0.358-3.740 [facility] Comment on above: Performed By: #### F T3, TSH #### [facility] [address] [place] [address] Dr. Karey Ordoñez MRI BRAIN WO CONon 2 MRI BRAIN WO CON EXAMINATION: MRI BRA [...] by: VERO ATKINS Date: 2022-01-22 13:49 Normal [facility] CT [facility] CONon [address] [facility] CON EXAMINATION: CT [facility] NE WO CON [...] by: LALI PATEL Date: 2022-01-18 10:22 Normal [facility] US CAROTID ART BILon 022 US [...] by: ZINA GREGORY Date: 2022-01-17 18:33 Normal [facility] CT HEAD WO CONon 01-15-2022 CT [...] VERO ATKINS Date: 2022-01-15 11:07 Normal [facility] MRI KNEE RT WO CONon 022 [...] by: VERO ATKINS Date: 2021-12-18 15:05 Normal [facility] XR KNEE RT 3Von 12-10-2021 XR [...] VERO WILSON Date: 2021-12-10 06:40 Normal [facility] LIVER PROFILEon 10-29-2021 Albumin [Mass/Vol] 3.7 g/dL Normal 3.4-5.0 [facility] Comment on above: Performed By: #### F T4 #### [facility] [address] [place] [address] Dr. Karey Ordoñez Albumin/Globulin [Mass ratio] 0.9 {ratio} Normal [facility] Comment on above: Performed By: #### F T4 #### [facility] [address] [place] [address] Dr. Karey Ordoñez ALP [Catalytic activity/Vol] 111 U/L Normal 46-116 [facility] Comment on above: Performed By: #### F T4 #### [facility] [address] [place] [address] Dr. Karey Ordoñez ALT [Catalytic activity/Vol] 22 U/L Normal 14-59 [facility] Comment on above: Performed By: #### F T4 #### [facility] [address] [place] [address] Dr. Karey Ordoñez AST [Catalytic activity/Vol] 12 U/L Critically low 15-37 [facility] Comment on above: Performed By: #### F T4 #### [facility] [address] [address] [address] Karey Ordoñez BILI, CONJUGATED 0.1 mg/dL Normal 0.0-0.2 [facility] Comment on above: Performed By: #### F T4 #### [facility] [address] [address] [address] Karey Ordoñez Bilirubin [Mass/Vol] 0.5 mg/dL Normal 0.2-1.0 [facility] Comment on above: Performed By: #### F T4 #### [facility] [address] [place] [address] Dr. Karey Ordoñez Globulin (S) [Mass/Vol] 4.1 g/dL Normal [facility] Comment on above: Performed By: #### F T4 #### [facility] [address] [place] [address] Dr. Karey Ordoñez Protein [Mass/Vol] 7.8 g/dL Normal 6.4-8.2 [facility] Comment on above: Performed By: #### F T4 #### [facility] [address] [place] [address] Dr. Karey Ordoñez INSULINon 10-02-2021 Insulin 10.5 uIU/mL Normal 2.6-24.9 [facility] Comment on above: Performed By: #### I NSULIN #### [facility] [address] [place] [address] Dr. Karey Ordoñez CBC AUTO DIFFon 10-01-2021 BASO # 0.0 103/ul Normal 0.0-0.1 [facility] Comment on above: Performed By: #### F T4 #### [facility] [address] [place] [address] Dr. Karey Ordoñez Basophils/100 WBC (Bld) 0.4 % Normal 0.2-2.0 [facility] Comment on above: Performed By: #### F T4 #### [facility] [address] [place] [address] Dr. Karey Ordoñez EO # 0.1 103/ul Normal 0.0-0.7 [facility] Comment on above: Performed By: #### F T4 #### [facility] [address] [place] [address] Dr. Karey Ordoñez Eosinophils/100 WBC (Bld) 1.1 % Normal 0.9-7.0 [facility] Comment on above: Performed By: #### F T4 #### [facility] [address] [place] [address] Dr. Karey Ordoñez Erythrocyte distribution width (RBC) [Ratio] 12.9 % Normal 11.0-15.0 [facility] Comment on above: Performed By: #### F T4 #### [facility] [address] [place] [address] Dr. Karey Ordoñez Hematocrit (Bld) [Volume fraction] 41.5 % Normal 36.0-48.0 [facility] Comment on above: Performed By: #### F T4 #### [facility] [address] [place] [address] Dr. Karey Ordoñez Hemoglobin (Bld) [Mass/Vol] 13.0 g/dL Normal 12.0-16.0 [facility] Comment on above: Performed By: #### F T4 #### [facility] [address] [place] [address] Dr. Karey Ordoñez IG # 0.04 10e3/ul Critically high 0.00-0.03 [facility] Comment on above: Performed By: #### F T4 #### [facility] [address] [place] [address] Dr. Karey Ordoñez IG % 0.5 % Normal 0.0-0.5 [facility] Comment on above: Performed By: #### F T4 #### [facility] [address] [place] [address] Dr. Karey Ordoñez LYMPH # 1.9 103/ul Normal 1.2-3.8 [facility] Comment on above: Performed By: #### F T4 #### [facility] [address] [place] [address] Dr. Karey Ordoñez Lymphocytes/100 WBC (Bld) 22.7 % Normal 20.5-60.0 [facility] Comment on above: Performed By: #### F T4 #### [facility] [address] [place] [address] Dr. Karey Ordoñez MANUAL DIFF REQ NO Normal [facility] Comment on above: Performed By: #### F T4 #### [facility] [address] [place] [address] Dr. Karey Ordoñez MCH (RBC) [Entitic mass] 28.9 pg Normal 26.7-34.0 [facility] Comment on above: Performed By: #### F T4 #### [facility] [address] [place] [address] Dr. Karey Ordoñez MCHC (RBC) [Mass/Vol] 31.3 g/dL Normal 29.9-35.2 [facility] Comment on above: Performed By: #### F T4 #### [facility] [address] [place] [address] Dr. Karey Ordoñez MCV (RBC) [Entitic vol] 92.2 fL Normal 81.0-99.0 [facility] Comment on above: Performed By: #### F T4 #### [facility] [address] [place] [address] Dr. Karey Ordoñez MONO # 0.6 103/ul Normal 0.3-0.8 [facility] Comment on above: Performed By: #### F T4 #### [facility] [address] [place] [address] Dr. Karey Ordoñez Monocytes/100 WBC (Bld) 6.8 % Normal 1.7-12.0 [facility] Comment on above: Performed By: #### F T4 #### [facility] [address] [place] [address] Dr. Karey Ordoñez NEUT # 5.8 103/ul Normal 1.4-6.5 [facility] Comment on above: Performed By: #### F T4 #### [facility] [address] [place] [address] Dr. Karey Ordoñez Neutrophils/100 WBC (Bld) 68.5 % Normal 43.0-75.0 [facility] Comment on above: Performed By: #### F T4 #### [facility] [address] [place] [address] Dr. Karey Ordoñez Platelet mean volume (Bld) [Entitic vol] 12.8 fL Normal 9.5-13.5 [facility] Comment on above: Performed By: #### F T4 #### [facility] [address] [place] [address] Dr. Karey Ordoñez PLT 231 103/ul Normal 150-450 [facility] Comment on above: Performed By: #### F T4 #### [facility] [address] [place] [address] Dr. Karey Ordoñez RBC 4.50 106/ul Normal 4.20-5.40 [facility] Comment on above: Performed By: #### F T4 #### [facility] [address] [place] [address] Dr. Karey Ordoñez WBC 8.5 103/ul Normal 4.0-11.0 [facility] Comment on above: Performed By: #### F T4 #### [facility] [address] [place] [address] Dr. Karey Ordoñez FREE T4on 10-01-2021 Free T4 [Mass/Vol] 1.27 ng/dL Normal 0.76-1.[address] [facility] Comment on above: Performed By: #### F T4 #### [facility] [address] [place] [address] Dr. Karey Ordoñez GLYCOHEMOGLOBIN A1Con 2021 ADA RECOMMENDATION SEE BELOW Normal [facility] Comment on above: Result Comment: ADA RECOMMENDED LIMIT 4.0 - 6.0 ADA THERAPEUTIC TARGET < 7.0 ACTION SUGGESTED > 7.0 Performed By: #### A 1C #### [facility] [address] [place] [address] Dr. Karey Ordoñez Glucose [Mass/Vol] 123 mg/dL Normal [facility] Comment on above: Performed By: #### A 1C #### [facility] [address] [place] [address] Dr. Karey Ordoñez HbA1c (Bld) [Mass fraction] 5.9 % Normal 4.5-6.2 [facility] Comment on above: Performed By: #### A 1C #### [facility] [address] [address] [address] Karey Ordoñez LIPID PROFILEon 10-01-2021 CHOL-HDL RATIO NORM SEE BELOW Normal [facility] Comment on above: Result Comment: 3.3 - 4.4 LOW RISK 4.4 - 7.1 AVERAGE RISK 7.1 - 11.0 MODERATE RISK >11.0 HIGH RISK Performed By: #### F T4 #### [facility] [address] [address] [address] Karey Ordoñez Cholesterol [Mass/Vol] 182 mg/dL Normal <=200 [facility] Comment on above: Performed By: #### F T4 #### [facility] [address] [address] [address] Karey Ordoñez Cholesterol in HDL [Mass/Vol] 52 mg/dL Normal 40-60 [facility] Comment on above: Performed By: #### F T4 #### [facility] [address] [address] [address] Karey Ordoñez Cholesterol in LDL [Mass/Vol] 115.8 mg/dL Normal [facility] Comment on above: Performed By: #### F T4 #### [facility] [address] [address] [address] Karey Ordoñez Cholesterol.total/Ch olesterol in HDL [Mass ratio] 3.5 {ratio} Normal [facility] Comment on above: Performed By: #### F T4 #### [facility] [address] [address] [address] Karey Ordoñez HDL NORMAL > or = 60 mg/dl - LO W CARDIOVASCULAR RISK <40 mg/dl - HIGH CARDIOVASCULAR RISK Normal [facility] Comment on above: Performed By: #### F T4 #### [facility] [address] [address] [address] Karey Ordoñez LDL CALC NORMAL SEE BELOW Normal [facility] Comment on above: Result Comment: <100 mg/dl OPTIMAL 100 - 129 mg/dl NEAR OR ABOVE OPTIMAL 130 - 159 mg/dl BORDERLINE HIGH 160 - 189 mg/dl HIGH >190 mg/dl VERY HIGH Performed By: #### F T4 #### [facility] [address] [place] [address] Dr. Karey Ordoñez Triglyceride [Mass/Vol] 71 mg/dL Normal <=150 [facility] Comment on above: Performed By: #### F T4 #### [facility] [address] [place] [address] Dr. Karey Ordoñez VLDL CALC 14.2 mg/dL Normal [facility] Comment on above: Performed By: #### F T4 #### [facility] [address] [place] [address] Dr. Karey Ordoñez PROF 14(COMP METB)on 022 Albumin [Mass/Vol] 3.9 g/dL Normal 3.4-5.0 [facility] Comment on above: Performed By: #### F T4 #### [facility] [address] [place] [address] Dr. Karey Ordoñez Albumin/Globulin [Mass ratio] 0.9 {ratio} Normal [facility] Comment on above: Performed By: #### F T4 #### [facility] [address] [place] [address] Dr. Karey Ordoñez ALP [Catalytic activity/Vol] 117 U/L Critically high 46-116 [facility] Comment on above: Performed By: #### F T4 #### [facility] [address] [place] [address] Dr. Karey Ordoñez ALT [Catalytic activity/Vol] 25 U/L Normal 14-59 [facility] Comment on above: Performed By: #### F T4 #### [facility] [address] [place] [address] Dr. Karey Ordoñez Anion gap [Moles/Vol] 14.1 mmol/L Normal [facility] Comment on above: Performed By: #### F T4 #### [facility] [address] [place] [address] Dr. Karey Ordoñez AST [Catalytic activity/Vol] 14 U/L Critically low 15-37 [facility] Comment on above: Performed By: #### F T4 #### [facility] [address] [address] [address] Karey Ordoñez Bilirubin [Mass/Vol] 0.5 mg/dL Normal 0.2-1.0 [facility] Comment on above: Performed By: #### F T4 #### [facility] [address] [address] [address] Karey Ordoñez Calcium [Mass/Vol] 9.1 mg/dL Normal 8.5-10.1 [facility] Comment on above: Performed By: #### F T4 #### [facility] [address] [address] [address] Karey Ordoñez Chloride [Moles/Vol] 102 mmol/L Normal 98-107 [facility] Comment on above: Performed By: #### F T4 #### [facility] [address] [place] [address] Dr. Karey Ordoñez CO2 [Moles/Vol] 27.7 mmol/L Normal 21.0-32.0 [facility] Comment on above: Performed By: #### F T4 #### [facility] [address] [place] [address] Dr. Karey Ordoñez Creatinine [Mass/Vol] 0.76 mg/dL Normal 0.55-1.02 [facility] Comment on above: Performed By: #### F T4 #### [facility] [address] [place] [address] Dr. Karey Ordoñez EGFR-AF [place]ER >60 Normal >=60 [facility] Comment on above: Performed By: #### F T4 #### [facility] [address] [address] [address] Karey Ordoñez EGFR-NON AF [place] >60 Normal >=60 [facility] Comment on above: Performed By: #### F T4 #### [facility] [address] [place] [address] Dr. Karey Ordoñez Globulin (S) [Mass/Vol] 4.5 g/dL Normal [facility] Comment on above: Performed By: #### F T4 #### [facility] [address] [address] [address] Karey Ordoñez Glucose [Mass/Vol] 101 mg/dL Normal 74-106 [facility] Comment on above: Performed By: #### F T4 #### [facility] [address] [address] [address] Karey Ordoñez Potassium [Moles/Vol] 3.8 mmol/L Normal 3.5-5.1 [facility] Comment on above: Performed By: #### F T4 #### [facility] [address] [address] [address] Karey Ordoñez Protein [Mass/Vol] 8.4 g/dL Critically high 6.4-8.2 [facility] Comment on above: Performed By: #### F T4 #### [facility] [address] [address] [address] Karey Ordoñez Sodium [Moles/Vol] 140 mmol/L Normal 136-145 [facility] Comment on above: Performed By: #### F T4 #### [facility] [address] [address] [address] Karey Ordoñez Urea nitrogen [Mass/Vol] 10.0 mg/dL Normal 7.0-18.0 [facility] Comment on above: Performed By: #### F T4 #### [facility] [address] [address] [address] Karey Ordoñez Urea nitrogen/Creatinine [Mass ratio] 13.2 mg/mg Normal [facility] Comment on above: Performed By: #### F T4 #### [facility] [address] [address] [address] Karey Ordoñez TSHon 10-01-2021 TSH 2.445 uIU/mL Normal 0.358-3.740 [facility] Comment on above: Performed By: #### F T4 #### [facility] [address] [address] [address] Karey Ordoñez TSH RANGE SEE BELOW Normal [facility] Comment on above: Result Comment: <0.3 4 UIU/ml HYPERTHYROID 0.34-5.60 UIU/ml EUTHYROID >5.60 UIU/ml HYPOTHYROID Performed By: #### F T4 #### [facility] [address] [place] [address] Dr. Karey Ordoñez Social History Date Type Detail Facility Start: 04-14-2023 Alcohol intake Ex-drinker (finding) [facility] Start: 02-13-2023 End: 02-17-2023 No alcohol use No alcohol use [facility] Comment on above: 1-2 cups coffee brian y; Start: 07-29-2021 End: 02-17-2023 Tobacco smoking status NHIS Never smoked tobacco [facility] Start: 07-29-2021 End: 02-17-2023 Tobacco use and exposure Smokeless tobacco non-user [facility] Start: 02-13-2023 End: 02-17-2023 Tobacco use panel [facility] Start: 1985 Sex Assigned At Not on file C [facility] Adult Depression Screening Assessment 0 [facility] Vital Signs Date Time Vital Sign Value Performing Clinician Faci lity 02-17-2023 08:48-0400 Body weight 126.55 kg Alberto Marcus MD Work Phone: [facility] 02-17-2023 08:48-0400 Diastolic blood pressure 82 mm[Hg] Alberto Marcus MD Work Phone: [facility] 02-17-2023 08:48-0400 Heart rate 96 /min Alberto Marcus MD Work Phone: [facility] 02-17-2023 08:48-0400 SaO2% (BldA) [Mass fraction] 98 % Alberto Marcus MD Work Phone: [facility] 02-17-2023 08:48-0400 Systolic blood pressure 116 mm[Hg] Alberto Marcus MD Work Phone: [facility] 06-30-2022 09:45-0500 Body height 160.02 cm Allison Ara Mendez Work Phone: [facility] 250 DO Work Phone: 06-30-2022 09:45-0500 Body mass index (BMI) [Ratio] 49.42 kg/m2 Allison Mcclureholz Work Phone: [facility] [place] [facility] DO Work Phone: 06-30-2022 09:45-0500 Body surface area Derived from formula 2.23 m2 Allison Mcclurehollorri Work Phone: [facility] [place] 250 DO Work Phone: 06-30-2022 09:45-0500 Body weight 126.55 kg Allison Mcclureholz Work Phone: [facility] [place] 250 DO Work Phone: 06-30-2022 09:45-0500 Diastolic blood pressure 80 mm[Hg] Allison Mcclureholz Work Phone: [facility] 250 DO Work Phone: 06-30-2022 09:45-0500 Heart rate 74 /min Allison Mcclureholz Work Phone: [facility] [place] 250 DO Work Phone: 06-30-2022 09:45-0500 Systolic blood pressure 128 mm[Hg] Allison Mendez Work Phone: [facility] [email or web address] 250 DO Work Phone: Progress note 08-31-2023 Note Date & Type Note Facility 08-31-2023 Note HNO ID: [id number] Author: DINO SELLERS Chacorta Service: ? Author Type: Genetic Counselor Type: [...] to her home address. Dino Sellers MS, [facility] Licensed Genetic Counselor [facility] History of Present illness Narrative [...] to her home address. Dino Sellers MS, [facility] Licensed Genetic Counselor documented in this encounter [facility] Progress note 02-17-2023 Note Date & Type Note Facility 02-17-2023 Note HNO ID: [id number] Author: Alberto Marcus MD Service: ? Author Type: Physician Type: Progress Notes Filed: 02/17/2023 10:02 AM Note Text: Rheumatology Clinic Date of Service: 02/17/2023 Patient: Denisha Velasco Medical Record: [id number] Last Rheumatology visit: None at [facility] History of Present Illness Densiha Velasco is a 37 year old White [...] each day a (more content not included)... [facility] Instructions 02-17-2023 Patient Instructions Note [...] and/or non-rheumatologic conditions. A meta-analysis from the [facility] in [place] suggested that concomitant fibromyalgia is common in patients with inflammatory arthritis, which can have a major impact on assessing disease severity and treatment decisions. The overall prevalence of fibromyalgia was 21% among patients with rheumatoid arthritis and 13% in ankylosing spondylitis, whereas the condition is reported in approximately 1% to 5% of the general population, according to Wyatt Luke, [facility], PhD, of the [facility] in [place], and colleagues. The cornerstones of therapy for [...] guidelines of fibromyalgia: (1) https://www.rheumatology.org/I-Am-A/Patient- Caregiver/Diseases-Conditions/Fibromyalgia (2) http://fibroguide.med.[facility]/ documented in this encounter [facility] History of Present illness Narrative 02-17-2023 Alberto Marcus MD - 02/17/2023 8:49 AM EDT Note Date & Type Note Facility 02-17-2023 History of Presen t illness Narrative Images from the original note were not included. Rheumatology Clinic Date of Service: 02/17/2023 Patient: Denisha Velasco Medical Record: [id number] Last Rheumatology visit: None at [facility] History of Present Illness Denisha Velasco [...] which included preparing to see the patient, [id number] patient care, completing clinical documentation, obtaining and/or reviewing separately obtained history, performing a medically appropriate examination, and counseling and educating the patient/family/caregiver. Alberto Marcus MD Rheumatology Date: February 17, 2023 Time: 8:50 AM documented in this encounter [facility] Evaluation note Note Date & Type Note Facility Evaluation note Diagnosis Fibromyalgia- Primary Mylagia and myositis, unspecified Sedimentation rate elevation Elevated sedimentation rate Fatigue, unspecified type Vitamin D deficiency Unspecified vitamin D deficiency documented in this encounter [facility] Evaluation note Note Date & Type Note Facility Evaluation note Diagnosis Elevated partial thromboplastin time (PTT)- Primary Abnormal coagulation profile documented in this encounter [facility] Evaluation note Note Date & Type Note Facility Evaluation note Diagnosis Family history of autism- Primary Family history of psychiatric condition documented in this encounter [facility] History of Present illness Narrative Note [...] at her young age. -[facility] 250 DO Work Phone: Instructions Note Date & Type Note Facility Instructions Not on filedocumented in this en counter [facility] Summary Purpose Family History No Family History [...] and content) DATE CREATED AUTHOR 06/30/2022 [facility] DATE CREATED AUTHOR AUTHOR'S ORGANIZ ATION 07/01/2022 [employer] DATE CREATED AUTHOR AUTHOR'S ORGANIZ ATION 07/08/2022 [facility] DATE CREATED AUTHOR AUTHOR'S ORGANIZ ATION 07/31/2023 [facility] DATE CREATED AUTHOR AUTHOR'S ORGANIZ ATION 08/01/2023 [facility] DATE CREATED AUTHOR AUTHOR'S ORGANIZ ATION 08/31/2023 [facility] DATE CREATED AUTHOR AUTHOR'S ORGANIZ ATION 09/09/2023 [facility] Source Comments (unrecognize d section and content) In the event this informatio n is protected by the Federal Confidentiality of Alcohol and Drug Abuse Patient Records regulations: The Federal rules restrict any use of the information to criminally investigate or prosecute any alcohol or drug abuse patient.[facility] the event this information is protected by the Federal Confidentiality of Alcohol and Drug Abuse Patient Records regulations: The Federal rules restrict any use of the information to criminally investigate or prosecute any alcohol or drug abuse patient.[facility] Reason for Visit (unrecogniz ed section and content) Reason Comments Consult Reason Comments Genetics- parental testing Care Teams (unrecognized sec tion and content) Architectural Technologist Relationship Specialty Start Date End Date Allison Mendez, SENIOR RISK MANAGER-RADIOLOGIST DIAGNOSTIC [address] [place] [address] PCP - General Nurse Practitioner 04/14/23 FOR [...] BE BASED ON THE PRIMARY CLINICAL RECORDS. [facility]. provides no warranty or guarantee of the accuracy or completeness of information in this document.
--- NOTE | 2023-10-12 13:36 | PM.CN ---
Consult Note: HPI Data of Consult Patient: known to practice within the last 3 years Consult date: 10/12/23 Requesting Physician: Patrick Parks MD Primary Care Provider: Allison Mendez NP Consult Narrative Reason for consult: Right thoracic pain, low back pain Narrative: 37yof who presents for in office injection. Persistence of right mid back pain. Multiple trigger points expressed on palpation. Continues to have low back pain, just recently received insurance approval for medial branch blocks. cc:: CC: Patrick Parks MD Review of Systems ROS Status of ROS 10 or more systems reviewed and unremarkable except as noted in history and below [facility] Medical History (Updated 09/07/23 @ 15:19 by Brianna Epstein) Vertigo ?R42 - Dizziness and giddiness (ICD-10) Anxiety ?F41.9 - Anxiety disorder, unspecified (ICD-10) Diabetes ?E11.9 - Type 2 diabetes mellitus without complications (ICD-10) Sleep apnea ?G47.30 - Sleep apnea, unspecified (ICD-10) Asthma ?J45.909 - Unspecified asthma, uncomplicated (ICD-10) Irregular heart beat ?I49.9 - Cardiac arrhythmia, unspecified (ICD-10) Heart murmur ?R01.1 - Cardiac murmur, unspecified (ICD-10) High blood pressure ?I10 - Essential (primary) hypertension (ICD-10) Surgical History History of hysterectomy ?Z90.710 - Acquired absence of both cervix and uterus (ICD-10) History of section ?Z98.891 - History of uterine scar from previous surgery (ICD-10) History of arthroscopy of right knee ?Z98.890 - Other specified postprocedural states (ICD-10) Social History Smoking status: Never smoker Meds Home Medications and Allergies Home Medications ?Medication ?Instructions ?Recorded ?Confirmed ?Type aspirin 81 mg tablet,delayed 81 mg PO DAILY 03/31/23 09/07/23 History release (Adult Low Dose Aspirin) atorvastatin 10 mg tablet 10 mg PO DAILY 03/31/23 09/07/23 History buspirone 10 mg tablet 10 mg PO BID 03/31/23 09/07/23 History levothyroxine 137 mcg tablet 150 mcg PO DAILY 03/31/23 09/07/23 History losartan 50 mg tablet 50 mg PO DAILY 03/31/23 09/07/23 History metformin 500 mg tablet 500 mg PO DAILY 03/31/23 09/07/23 History sertraline 100 mg tablet 100 mg PO BEDTIME 03/31/23 09/07/23 History verapamil 180 mg 24 hr 180 mg PO DAILY 03/31/23 09/07/23 History capsule,extended release VICTOZA 1.8 mg DAILY 09/07/23 History Allergies Allergy/AdvReac Type Severity Reaction Status Date / Time hydrochlorothiazide Allergy Severe Verified 03/31/23 13:24 gabapentin AdvReac Severe Confusion Verified 03/31/23 13:24 Exam Narrative Exam Narrative: Psych-alert and oriented x 3. Attentive and appropriate, constitutionally normal, displays normal mood and affect per situation.? There are no obvious deficits in memory, reasoning, or intellect.? Skin-no obvious rashes, bruising, erythema noted to the patient's area of pain. Extremities- extremities are warm with minimal edema and palpable pulses. Thoracic- tenderness to palpation in thoracic spine and paraspinal musculature. Multiple trigger points expressed on palpation. Pain is elicited with extension, and lateral rotation of the thoracic spine. Range of motion is slightly diminished with these motions due to pain. Coordination remains intact.? Gait remains non-antalgic. Assessment and Plan Assessment and Plan (1) Myofascial pain syndrome of thoracic spine: (2) Lumbar spondylosis: Plan 37yof who presents for in office injection. Continues to have right midback pain, so would like to move forward with thoracic TPI. We agree to proceed. Procedure: Right parathoracic trigger point injections Medications: Bupivacaine 0.25% 4cc, kenalog 40mg I explained the details of the procedure to the patient including the risks, benefits, and alternatives.? We had an informed discussion.? The patient verbalized understanding and signed the consent form.? All questions were answered appropriately.? A time-out was performed.? After obtaining a comfortable seated position, the skin overlying the right thoracic back was prepped with alcohol 3 times. The needle was inserted in a sterile manner through the skin towards the palpated trigger point areas. The contents of the syringe were gently injected without any resistance 1cc at a time into the appropriate trigger point.? The needle was removed and pressure was applied at the injection site to decrease the incidence of ecchymosis and hematoma formation.? A sterile bandage was applied. The patient tolerated the procedure well.
== END 2023-10-12 12:41 | disposition home or self-care (01) ==
LOC: PM 12:40
PROVIDERS: PCP Nurse Practitioner; Visit Provider Anesthesiology
DX: M79.18 Myalgia, other site (principal); M47.816 Spondylosis without myelopathy or radiculopathy, lumbar region
CPT/HCPCS: 20553

== ENCOUNTER 2023-10-19 09:37 | Day surgery (SDC) | payer OTHER, SELFPAY ==
[2023-10-19 09:49] VITALS: BP 143/93; PULSE 91; TEMP 36.2; O2SAT 100
[2023-10-19 09:55] LABS: Glucometer 101 mg/dL (74-106)
--- OUTSIDE RECORDS SUMMARY | 2023-10-19 09:55 | XMS_ITS ---
Patient Summarization (C-CDA 2.1 CCD) Created on: October 19, 2023 DENISHA VELASCO : 1985 Sex: Female Author Organization Sample organization Care Team Providers Care Order Expediter Name Role Phone Katrin LIMON, Dr. Chandler Pryor Attending Unavailable Katrin LIMON, Dr. Chandler Pryor Referring Unavailable Aichholz, Mrs. Allison Bullock Primary Care Unavailab le AichholzAllison Ara Unavailable Unavailable Unavailable AICHHOLZ, SUPPLY TECHNICIAN ALLISON Consulting Unavailable AICHHOLZ, SUPPLY TECHNICIAN ALLISON Attending Unavailable AICHHOLZ, SUPPLY TECHNICIAN ALLISON Primary Care Unavailable AICHHOLZ, SUPPLY TECHNICIAN LALISON Admitting Unavailable AICHHOLZ, SUPPLY TECHNICIAN ALLISON Consulting Unavailable AICHHOLZ, SUPPLY TECHNICIAN ALLISON Attending Unavailable AICHHOLZ, SUPPLY TECHNICIAN ALLISON Primary Care Unavailable AICHHOLZ, SUPPLY TECHNICIAN ALLISON Admitting Unavailable AICHHOLZ, SUPPLY TECHNICIAN ALLISON Consulting Unavailable AICHHOLZ, SUPPLY TECHNICIAN ALLISON Attending Unavailable AICHHOLZ, SUPPLY TECHNICIAN ALLISON Admitting Unavailable AICHHOLZ, SUPPLY TECHNICIAN ALLISON Primary Care Unavailable FAWWAD, MEI H Admitting Unavailable AICHHOLZ, SUPPLY TECHNICIAN ALLISON Primary Care Unavailable VERO WILSON Consulting Unavailable FAWWAD, MEI H Attending Unavailable FAWWAD, MEI H Consulting Unavailable AICHHOLZ, SUPPLY TECHNICIAN ALLISON Consulting Unavailable AICHHOLZ, SUPPLY TECHNICIAN ALLISON Attending Unavailable AICHHOLZ, SUPPLY TECHNICIAN ALLISON Admitting Unavailable AICHHOLZ, SUPPLY TECHNICIAN ALLISON Primary Care Unavailable DR ZINA GREGORY Consulting Unavailable JESSE HATCH Attending Unavailable MAMIE, JESSE Salgado Admitting Unavailable AICHHOLZ, SUPPLY TECHNICIAN ALLISON Primary Care Unavailable JESSE HATCH Consulting Unavailable AICHHOLZ, SUPPLY TECHNICIAN ALLISON Primary Care Unavailable JESSE HATCH Attending Unavailable JESSE HATCH Admitting Unavailable JESSE HATCH Consulting Unavailable Lali Patel Consulting Unavailable AICHHOLZ, SUPPLY TECHNICIAN ALLISON Primary Care Unavailable DR VERO ATKINS V Consulting Unavailable PAY ., DR PONCE Attending Unavailable PAY ., DR PONCE Admitting Unavailable PAY ., DR PONCE Consulting Unavailable AICHHOLZ, SUPPLY TECHNICIAN ALLISON Admitting Unavailable AICHHOLZ, SUPPLY TECHNICIAN ALLISON Attending Unavailable AICHHOLZ, SUPPLY TECHNICIAN ALLISON Primary Care Unavailable AICHHOLZ, SUPPLY TECHNICIAN ALLISON Attending Unavailable AICHHOLZ, SUPPLY TECHNICIAN ALLISON Admitting Unavailable AICHHOLZ, SUPPLY TECHNICIAN ALLISON Primary Care Unavailable WEST, DR VERO De Oliveira Consulting Unavailable AICHHOLZ, SUPPLY TECHNICIAN ALLISON Consulting Unavailable AICHHOLZ, SUPPLY TECHNICIAN ALLISON Primary Care Unavailable FESSENDEN, DR VERO De Oliveira Consulting Unavailable FAWWAD, MEI H Attending Unavailable FAWWAD, MEI H Admitting Unavailable FAWWAD, MEI H Consulting Unavailable AICHHOLZ, SUPPLY TECHNICIAN ALLISON Admitting Unavailable AICHHOLZ, SUPPLY TECHNICIAN ALLISON Primary Care Unavailable AICHHOLZ, SUPPLY TECHNICIAN ALLISON Consulting Unavailable AICHHOLZ, SUPPLY TECHNICIAN ALLISON Attending Unavailable AICHHOLZ, SUPPLY TECHNICIAN ALLISON Admitting Unavailable AICHHOLZ, SUPPLY TECHNICIAN ALLSION Primary Care Unavailable AICHHOLZ, SUPPLY TECHNICIAN ALLISON Consulting Unavailable AICHHOLZ, SUPPLY TECHNICIAN ALLISON Attending Unavailable Unavailable Primary Care Provider Unavailaz e Aichholz BRINE ROOM LABORER-SUPPLY TECHNICIAN, Allison J Primary Care Provider JOANN MAHMOOD Referring Unavailable AICHHOLZ, ALLISON J Primary Care Unavailable TAQUERIA SOLIS Referring Unavailable AICHHOLZ, ALLISON J Primary Care Unavailable ANGELINE, ALBERTO KAMALESH Referring Unavaila ble AICHHOLZ, ALLISON ARA Referring Unavailable ANGELINE, ALBERTO KAMALESH Attending Unavaila ble Unavailable Primary Care Provider Unavailaz Parks MD, Patrick Quiroz Attending Unavailable AICHHOLZ, ALLISON Attending Unavailable AICHHOLZ, ALLISON Attending Unavailable AICHHOLZ, ALLISON Attending Unavailable Allergies Allergy Classification Reported Allergen(s) Allergy Type Date of Onset Reaction(s) Facility (6 sources) gabapentin; Translations: [gabapentin] Drug Allergy 2 Other: See Comments [facility] (4 sources) hydroCHLOROthiaz ney; Translations: [hydroCHLOROthia zide CAPS] Drug Allergy 2 Other: See Comments [facility] (1 source) gabapentin Drug Allergy [facility] (3 sources) hydroCHLOROthiaz ney; Translations: [HYDROCHLOROTHIA ZIDE] Drug Allergy 4 [facility] Encounters Encounter Date Encounter Type Care Provider Facility Start: 10-13-2023 End: 10-13-2023 ambulatory ALLISON MENDEZ Not Available Start: 09-07-2023 End: 09-08-2023 ambulatory Patrick Parks MD Facility:[facility] Start: 08-31-2023 Chart abstracting Dino Garcia [facility] Work Phone: [facility] Comment on above: Genetics- parental t esting Start: 07-30-2023 End: 07-30-2023 ambulatory ALLISON MENDEZ Not Available Start: 07-24-2023 End: 07-25-2023 ambulatory TAQUERIA SOLIS [facility] Start: 07-15-2023 Orders Only Taqueria Solis MD Work Phone: [facility] Comment on above: Elevated partial thr omboplastin time (PTT) (Primary Dx) Start: 07-13-2023 End: 07-14-2023 ambulatory JOANN MAHMOOD [facility] Start: 04-30-2023 End: 04-30-2023 ambulatory ALLISON MENDEZ Not Available Start: 02-17-2023 End: 02-18-2023 ambulatory ALBERTO MARCUS Facility:[facility] Start: 02-17-2023 End: 02-17-2023 Office outpatient new 60 minutes Alberto Marcus MD Work Phone: Rheumatology Comment on above: Fibromyalgia (Primar y Dx); Sedimentation rate elevation; Fatigue, unspecified type; Vitamin D deficiency Start: 07-07-2022 Encounter for antibo dy response examination LAURO MENDEZ [facility] Start: 07-03-2022 End: 07-04-2022 ambulatory SUPPLY TECHNICIAN ALLISON MENDEZ Facility:[facility] Start: 07-03-2022 End: 07-04-2022 Encounter for antibody response examination LAURO MENDEZ Facility:[facility] Start: 06-30-2022 Office outpatient vi sit 15 minutes Allison Mendez Work Phone: [facility] 250 DO Work Phone: Start: 06-30-[address] Chandler Wilkes II Facility: Start: 05-12-2022 End: 05-13-2022 ambulatory SUPPLY TECHNICIAN ALLISON AICHHOLZ Facility:[facility] Start: 03-04-2022 End: 03-04-2022 ambulatory JESSE HATCH Facility:[facility] Start: 02-06-2022 End: 02-07-2022 ambulatory SUPPLY TECHNICIAN ALLISON AICHHOLZ Facility:[facility] Start: 01-22-2022 End: 01-23-2022 ambulatory SUPPLY TECHNICIAN ALLISON AICHHOLZ Facility:[facility] Start: 01-18-2022 End: 01-18-2022 ambulatory SUPPLY TECHNICIAN ALLISON AICHHOLZ Facility:[facility] Start: 01-17-2022 End: 01-18-2022 ambulatory SUPPLY TECHNICIAN ALLISON AICHHOLZ Facility:[facility] Start: 01-15-2022 End: 01-15-2022 ambulatory SUPPLY TECHNICIAN ALLISON AICHHOLZ Facility:[facility] Start: 12-18-2021 End: 12-19-2021 ambulatory SUPPLY TECHNICIAN ALLISON AICHHOLZ Facility:[facility] Start: 12-09-2021 End: 12-10-2021 ambulatory SHAIKH Rasheed LARA Facility:[facility] Start: 10-29-2021 End: 10-30-2021 ambulatory SUPPLY TECHNICIAN ALLISON AICHHOLZ Facility:[facility] Start: 10-01-2021 End: 10-02-2021 ambulatory SUPPLY TECHNICIAN ALLISON AICHHOLZ Facility:[facility] Start: 08-13-2021 End: 10-01-2021 ambulatory SUPPLY TECHNICIAN ALLISON AICHHOLZ Facility:[facility] Immunizations Immunization Date Immunization Notes Care Provider [facility] 04-25-2022 influenza virus vacc ine, unspecified formulation [facility]queria Solis MD [facility] 09-10-2020 Pfizer-BioNTech COVI D-19 Vacc 30 MCG/0.3ML Intramuscular Suspension Allison Mendez Work Phone: [facility] 250 DO Work Phone: 08-20-2020 Pfizer-BioNTech COVI D-19 Vacc 30 MCG/0.3ML Intramuscular Suspension Allison Mendez Work Phone: -[facility] 250 DO Work Phone: Medications Current Medications [...] mg oral tablet (4 sources) Biguanide Start: metFORMIN (GLUCOPHAGE) 500 mg [...] Start: 07-09-2021 take 1 capsule by mo uth every twenty-four hours in the morning verapamiL [...] on above: Take 1 capsule by mo [facility] every afternoon. Completed/Discontinued Medications Medication Drug Class(es) Dates Sig (Normalized) Sig (Original) amitriptyline hydrochloride 25 mg oral tablet (1 source) Tricyclic Antidepressant Amitriptyline HCl - 25 MG Oral Tablet 1/2 to 1 tab at night Quantity: 0 Refills: 0 Ordered: 30-Jun-2022 DO Active Payers Date Payer Category Payer Unknown 2019 Medicaid [id number] 1985 Unknown [id number] 2.16. [id number] 1985 Unknown [id number] 2.16.84 0.1.905530.3.579.2.593 1985 Unknown [id number] 2.16.84 0.1.531616.3.579.2.593 1985 Unknown [id number] 2.16.84 0.1.193075.3.579.2.593 1985 Unknown [id number] 2.16.84 0.1.225921.3.579.2.593 1985 Unknown [id number] 2.16.84 0.1.733013.3.579.2.593 1985 Unknown [id number] 2.16.84 0.1.185031.3.579.2.593 1985 Unknown [id number] 2.16.84 0.1.424807.3.579.2.593 1985 Unknown [id number] 2.16.84 0.1.111431.3.579.2.593 1985 Unknown [id number] 2.16.84 0.1.160028.3.579.2.593 1985 Unknown [id number] 2.16.84 0.1.077079.3.579.2.593 1985 Unknown [id number] 2.16.84 0.1.503536.3.579.2.593 1985 Unknown [id number] 2.16.84 0.1.627053.3.579.2.593 1985 Unknown [id number] 2.16.84 0.1.203218.3.579.2.593 1985 Unknown [id number] 2.16.8 40.1.394757.3.579.2.1286 1985 Unknown [id number] 2.16.8 40.1.298206.3.579.2.1286 1985 Unknown [id number] 2.16. 840.1.160326.3.579.2.196 1985 Unknown [id number] 2.16.84 0.1.483496.3.579.2.1259 1985 Unknown [id number] 2.16.84 0.1.398856.3.579.2.1259 1985 Unknown [id number] 2.16.840 .1.020531.3.579.2.1259 1959 Unknown [id number] Plan of Treatment Date Care Activity Detail Author Start: 04-14-2024 Adult BMI Screening Adult BMI Screen ing [facility] Start: 04-14-2024 Depression Screening Depression Scre ening [facility] Start: 04-14-2024 Tobacco Screening Tobacco Screening [facility] Start: 04-11-2024 FUV, Provider: Chandler Wilkes, Status: Fausto, Time: 11:00 AM FUV, Provider: Chandler Wilkes, Status: Fausto, [facility] 11:00 [facility] Work Phone: Start: 01-10-2024 Influenza vaccination Influenz a Vaccine (Season Ended) [facility] Start: 05-11-2023 Behavioral Health Screening Behavioral Health Screening [facility] Start: 02-17-2023 End: 04-19-2023 Cobalamin (Vitamin B12) [Mass/volume] in Serum or Plasma [facility] Work Phone: Comment on above: Expected: 02/17/2023 , Expires: 04/19/2023 Start: 02-17-2023 End: 04-19-2023 IMMUNOGLOBULINS YARI IMMUNOGLOBULINS YARI Lab Routine Sedimentation rate elevation Expected: 02/17/2023, Expires: 04/19/2023 [facility] Work Phone: Comment on above: Expected: 02/17/2023 , Expires: 04/19/2023 Start: 02-17-2023 End: 04-19-2023 PROTEIN ELECTROPHORESIS SERUM W/INTERP PROTEIN ELECTROPHORESIS SERUM W/INTERP Lab Routine Sedimentation rate elevation Expected: 02/17/2023, Expires: 04/19/2023 [facility] Work Phone: Comment on above: Expected: 02/17/2023 , Expires: 04/19/2023 Start: 01-09-2023 Covid-19 Vaccine ( season) Covid-19 Vaccine ( season) [facility] Start: 01-09-2023 Influenza vaccination C [facility] Start: 05-11-2022 Depression Assessment Depression Ass essment [facility] Start: 12-25-2013 HPV Testing HPV Testing [facility] Start: 12-25-2013 Screening for malign ant neoplasm of cervix HPV Testing [facility] Start: 12-25-2004 Pap Testing Pap Testing [facility] Start: 12-25-2004 Screening for malign ant neoplasm of cervix Pap Testing [facility] Start: 12-25-2002 DTaP,Tdap and Td Vac cines (1 - Tdap) DTaP,Tdap and Td Vaccines (1 - Tdap) [facility] Start: 12-25-2002 Hepatitis B Vaccine (1 of 3 - 19+ 3-dose series) Hepatitis B Vaccine (1 of 3 - 19+ 3-dose series) [facility] Start: 12-25-2002 Urine microalbumin profile DTaP,Tdap,Td Vaccine (1 - Tdap) [facility] Start: 12-25-2001 Adult BMI Follow Up Plan Adult BMI F ollow Up Plan [facility] Start: 12-25-2001 Hepatitis C Screening Hepatitis C [facility] Start: 12-25-2001 Hepatitis C screening Hepatitis C [facility] Start: 12-25-2001 HIV Screening HIV Screening [facility] Start: 12-25-2001 HIV screening HIV Screening [facility] Start: 1985 Hepatitis B Vaccine (1 of 3 - 3-dose series) Hepatitis B Vaccine (1 of 3 - 3-dose series) [facility] End: 07-14-2024 Inhibitor screen Inhibitor screen Lab Routine Elevated partial thromboplastin time (PTT) 1 Occurrences starting 07/15/2023 until 07/14/2024 [facility] Work Phone: Comment on above: 1 Occurrences starti ng 07/15/2023 until 07/14/2024 SWAB COLLECTION SPECIMEN SWAB CO LLECTION SPECIMEN Lab Routine Family history of autism Ordered: 08/31/2023 [facility] Work Phone: Comment on above: [...] 03-04-2022 Episodic Other aftercare (1 source) Other retirement (current) drug therapy; Translations: [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 Colonoscopy Allison Mendez Work Phone: Results Test Name Value Interpretation Reference Range Facility 50/50 MIX STUDYon 07-24-2023 aPTT Coag (Bld) [Time] 42 s High 26-37 [facility] Comment on above: Performed By: #### P INR, 43429-1 #### [facility] ([id number]) [address] [place] [address] #### CMP, FEPR, 2276-4, CBCA #### [facility] ([id number]) [address], [address] [place] [address] aPTT Coag (Bld) [Time] 35 s Normal 26-37 [facility] Comment on above: Performed By: #### P INR, 79698-0 #### [facility] ([id number]) [address] [place] [address]28 #### CMP, FEPR, 2276-4, CBCA #### [facility] ([id number]) [address], [address] [place] [address] PT Coag (PPP) [Time] 11.8 s Normal 9.8-13.2 [facility] Comment on above: Performed By: #### P INR, 29220-1 #### [facility] ([id number]) [address] [place] [address] #### CMP, FEPR, 6-4, CBCA #### [facility] ([id number]) [address] [place] [address] Coagulation factor IX activi ty actual/normal Coag (PPP) [Relative time]on 07-24-2023 FACTOR 9 ASSAY 134 % act Normal 65-150 [facility] Comment on above: Performed By: #### P INR, 86494-9 #### [facility] ([id number]) [address] [place] [address] 57558 #### CMP, FEPR, 2275-4, CBCA #### [facility] ([id number]) [address], [address] [place] [address] Coagulation factor VIII acti vity actual/normal Coag (PPP) [Relative time]on 07-24-2023 FACTOR 8 ASSAY 120 % act Normal 50-150 [facility] Comment on above: Performed By: #### P INR, 52369-0 #### [facility] ([id number]) [address] [place] [address] #### CMP, FEPR, 2276-4, CBCA #### [facility] ([id number]) [address], [address] [place] [address] Coagulation factor XI activi ty actual/normal Coag (PPP) [Relative time]on 07-24-2023 FACTOR 11 ASSAY 153 % act High 65-150 [facility] Comment on above: Performed By: #### P INR, 33923-4 #### [facility] ([id number]) [address] [place] [address] 89289 #### CMP, FEPR, 6-4, CBCA #### [facility] ([id number]) [address], [address] [place] [address] Coagulation factor XII activ ity actual/normal Coag (PPP) [Relative time]on 07-24-2023 FACTOR 12 ASSAY 86 % act Normal 50-150 [facility] Comment on above: Performed By: #### P INR, 43211-5 #### [facility] ([id number]) [address] [place] [address] 89987 #### CMP, FEPR, 6-4, CBCA #### [facility] ([id number]) [address], [address] [place] [address] [facility] GENER[facility] ORDERon 024 TEST NAME [id number] VWF COLLAGEN III BINDING NACIT PLASMA Normal [facility] Comment on above: Result Comment: Maria Alejandra ected on 07/14 AT 1430: Previously reported as [id number] VWF COLLAGEN III BINDING Performed By: #### P INR, 62388-4 #### [facility] ([id number]) [address] [place] [address] 39186 #### CMP, FEPR, 2276-4, CBCA #### [facility] ([id number]) [address] [place] [address], [address] [place] [address] TEST NAME [id number] VWF GPIBM ACTIVITY NACIT PLASMA Normal [facility] Comment on above: Performed By: #### P INR, 19512-2 #### [facility] ([id number]) [address] [place] [address] 70711 #### CMP, FEPR, 2276-4, CBCA #### [facility] ([id number]) [address] [place] [address], [address] [place] [address] TEST RESULT SEE NOTE Normal [facility] Comment on above: Result Comment: NOTE Test name Result Flag Units RefIntvl VWF Collagen III Binding 110 IU/dL 50-203 For additional information, please visit [email or web address] This test was developed and its performance characteristics determined by [employer]. It has not been cleared or approved by the [place] Food and Drug Administration. This test is used for clinical purposes. It should not be regarded as investigational or for research. This laboratory is certified under the Clinical Laboratory Improvement Amendments (CLIA) as qualified to perform high complexity clinical laboratory testing. Performed by: [employer] [facility]. [address] [place] [id number] Performed By: #### P INR, 55983-6 #### [facility] ([id number]) [address] [place] [address] 14976 #### CMP, FEPR, 2276-4, CBCA #### [facility] ([id number]) [address], [address] [place] [address] Result Comment: NOTE Test name Result Flag Units RefIntvl VWF GPIbM Activity 86 IU/dL 52-180 For additional information, please visit [email or web address] This test was developed and its performance characteristics determined by [employer]. It has not been cleared or approved by the [place] Food and Drug Administration. This test is used for clinical purposes. It should not be regarded as investigational or for research. This laboratory is certified under the Clinical Laboratory Improvement Amendments (CLIA) as qualified to perform high complexity clinical laboratory testing. Performed by: [employer]. [address] [place] [address] CBC AND AUTO DIFFon 07-13-19 ABSOLUTE BASOPHIL 0.0 X10E9/L Normal 0.0-0.2 [facility] Comment on above: Performed By: #### P INR, 18616-5 #### [facility] ([id number]) [address] [place] [address] 56684 #### CMP, FEPR, 2276-4, CBCA #### [facility] ([id number]) [address] [place] [address] ABSOLUTE NEUTROPHIL 5.0 X10E9/L Normal 1.5-6.6 [facility] Comment on above: Performed By: #### P INR, 01219-5 #### [facility] ([id number]) [address] [place] [address]9788 #### CMP, FEPR, 2276-4, CBCA #### [facility] ([id number]) [address], [address] [place] [address] Basophils/100 WBC (Bld) 0.3 % Normal [facility] Comment on above: Performed By: #### P INR, 32313-5 #### [facility] ([id number]) [address] [place] [address] 27993 #### CMP, FEPR, 2276-4, CBCA #### [facility] ([id number]) [address], [address] [place] [address] Eosinophils (Bld) [#/Vol] 0.1 10*3/uL Normal 0.0-0.4 [facility] Comment on above: Performed By: #### P INR, 48759-1 #### [facility] ([id number]) [address] [place] [address] 91305 #### CMP, FEPR, 2275-4, CBCA #### [facility] ([id number]) [address], [address] [place] [address] Eosinophils/100 WBC (Bld) 1.3 % Normal [facility] Comment on above: Performed By: #### P INR, 61898-5 #### [facility] ([id number]) [address] [place] [address] 05667 #### CMP, FEPR, 6-4, CBCA #### [facility] ([id number]) [address] [place] [address] Erythrocyte distribution width (RBC) [Ratio] 13.2 % Normal 11.5-15.0 [facility] Comment on above: Performed By: #### P INR, 93194-6 #### [facility] ([id number]) [address] [place] [address] 98207 #### CMP, FEPR, 6-4, CBCA #### [facility] ([id number]) [address], [address] [place] [address] Hematocrit (Bld) [Volume fraction] 42.4 % Normal 35-47 [facility] Comment on above: Performed By: #### P INR, 76614-9 #### [facility] ([id number]) [address] [place] [address] 27270 #### CMP, FEPR, 2276-4, CBCA #### [facility] ([id number]) [address], [address] [place] [address] Hemoglobin (Bld) [Mass/Vol] 13.9 g/dL Normal 11.7-15.5 [facility] Comment on above: Performed By: #### P INR, 63358-9 #### [facility] ([id number]) [address] [place] [address] 73870 #### CMP, FEPR, 2276-4, CBCA #### [facility] ([id number]) [address], [address] [place] [address] Lymphocytes (Bld) [#/Vol] 2.0 10*3/uL Normal 1.0-3.5 [facility] Comment on above: Performed By: #### P INR, 46398-2 #### [facility] ([id number]) [address] [place] [address] 32506 #### CMP, FEPR, 2276-4, CBCA #### [facility] ([id number]) [address], [address] [place] [address] Lymphocytes/100 WBC (Bld) 26.7 % Normal [facility] Comment on above: Performed By: #### P INR, 80583-5 #### [facility] ([id number]) [address] [place] [address] 76357 #### CMP, FEPR, 2276-4, CBCA #### [facility] ([id number]) [address] [place] [address], [address] [place] [address] MCH (RBC) [Entitic mass] 29.6 pg Normal 27-34 [facility] Comment on above: Performed By: #### P INR, 06720-4 #### [facility] ([id number]) [address] [place] [address] 54457 #### CMP, FEPR, 6-4, CBCA #### [facility] ([id number]) [address] [place] [address], [facility] [address] [place] [address] [place] [address] MCHC (RBC) [Mass/Vol] 32.8 g/dL Normal 32-36 [facility] Comment on above: Performed By: #### P INR, 23664-8 #### [facility] ([id number]) [address] [place] [address] 84046 #### CMP, FEPR, 6-4, CBCA #### [facility] ([id number]) [address] [place] [address], [address] [address] MCV (RBC) [Entitic vol] 90 fL Normal 80-100 [facility] Comment on above: Performed By: #### P INR, 05877-4 #### [facility] ([id number]) [address] [place] [address] 47500 #### CMP, FEPR, 6-4, CBCA #### [facility] ([id number]) [address] [place] [address], [facility] [place] [address] [place] [address] Monocytes (Bld) [#/Vol] 0.5 10*3/uL Normal 0-0.9 [facility] Comment on above: Performed By: #### P INR, 83451-8 #### [facility] ([id number]) [address] [place] [address] 43496 #### CMP, FEPR, 2276-4, CBCA #### [facility] ([id number]) [address] [place] [address], [address] [place] [address] Monocytes/100 WBC (Bld) 6.9 % Normal [facility] Comment on above: Performed By: #### P INR, 35063-2 #### [facility] ([id number]) [address] [place] [address] 41948 #### CMP, FEPR, 2276-4, CBCA #### [facility] ([id number]) [address] [place] [address], [address] [place] [address] Neutrophils/100 WBC (Bld) 64.8 % Normal [facility] Comment on above: Performed By: #### P INR, 29141-0 #### [facility] ([id number]) [address] [place] [address] 95879 #### CMP, FEPR, 2276-4, CBCA #### [facility] ([id number]) [address] [place] [address], [address] [place] [address] Platelet mean volume (Bld) [Entitic vol] 11.5 fL Normal 7-12 [facility] Comment on above: Performed By: #### P INR, 51364-4 #### [facility] ([id number]) [address] [place] [address] 02792 #### CMP, FEPR, 2276-4, CBCA #### [facility] ([id number]) [address] [place] [address], [address] [place] [address] Platelets (Bld) [#/Vol] 205 10*3/uL Normal 150-450 [facility] Comment on above: Performed By: #### P INR, 76238-6 #### [facility] ([id number]) [address] [place] [address] 59623 #### CMP, FEPR, 2276-4, CBCA #### [facility] ([id number]) [address] [facility], [address] [place] [address] RBC COUNT 4.70 X10E12/L Normal 3.80-5.20 [facility] Comment on above: Performed By: #### P INR, 95947-3 #### [facility] ([id number]) [address] [place] [address] 11982 #### CMP, FEPR, 2276-4, CBCA #### [facility] ([id number]) [address] [place] [address], [address] [place] [address] WBC (Bld) [#/Vol] 7.7 10*3/uL Normal 4.0-11.0 [facility] Comment on above: Performed By: #### P INR, 31957-5 #### [facility] ([id number]) [address] [place] [address] 92914 #### CMP, FEPR, 2276-4, CBCA #### [facility] ([id number]) [address] [place] [address], [address] [place] [address] COMPREHENSIVE METABOLIC PANE Drew 07-13-2023 Albumin [Mass/Vol] 4.6 g/dL Normal 3.2-5.3 [facility] Comment on above: Performed By: #### P INR, 93086-2 #### [facility] ([id number]) [address] [place] [address] #### CMP, FEPR, 2276-4, CBCA #### [facility] ([id number]) [address] [place] [address], [address] [place] [address] ALP [Catalytic activity/Vol] 118 U/L Normal 39-130 [facility] Comment on above: Performed By: #### P INR, 56235-6 #### [facility] ([id number]) [address] [place] [address] #### CMP, FEPR, 6-4, CBCA #### [facility] ([id number]) [address] [facility], [address] [place] [address] ALT [Catalytic activity/Vol] 12 U/L Normal 0-31 [facility] Comment on above: Performed By: #### P INR, 67804-5 #### [facility] ([id number]) [address] [place] [address] 79384 #### CMP, FEPR, 6-4, CBCA #### [facility] ([id number]) [address] [facility], [address] [place] [address] Anion gap [Moles/Vol] 10 mmol/L Normal 5-15 [facility] Comment on above: Performed By: #### P INR, 65427-0 #### [facility] ([id number]) [address] [place] [address] #### CMP, FEPR, 6-4, CBCA #### [facility] ([id number]) [address] [facility], [address] [place] [address] AST [Catalytic activity/Vol] 13 U/L Normal 0-41 [facility] Comment on above: Performed By: #### P INR, 94205-5 #### [facility] ([id number]) [address] [place] [address] 367[address] #### CMP, FEPR, 6-4, CBCA #### [facility] ([id number]) [address] [facility], [address] [place] [address] Bilirubin [Mass/Vol] 0.4 mg/dL Normal 0.3-1.2 [facility] Comment on above: Performed By: #### P INR, 89157-6 #### [facility] ([id number]) [address] [place] [address] 86576 #### CMP, FEPR, 2276-4, CBCA #### [facility] ([id number]) [address] [facility], [address] [place] [address] Calcium [Mass/Vol] 9.8 mg/dL Normal 8.5-10.5 [facility] Comment on above: Performed By: #### P INR, 28758-0 #### [facility] ([id number]) [address] [place] [address] #### CMP, FEPR, 2276-4, CBCA #### [facility] ([id number]) [address] [facility], [address] [place] [address] Chloride [Moles/Vol] 105 mmol/L Normal 98-109 [facility] Comment on above: Performed By: #### P INR, 48340-6 #### [facility] ([id number]) [address] [place] [address] 38489 #### CMP, FEPR, 2276-4, CBCA #### [facility] ([id number]) [address] [facility], [address] [place] [address] CO2 [Moles/Vol] 27 mmol/L Normal 22-32 [facility] Comment on above: Performed By: #### P INR, 52818-8 #### [facility] ([id number]) [address] [place] [address] 93257 #### CMP, FEPR, 2276-4, CBCA #### [facility] ([id number]) [address], [address] [place] [address] Creatinine [Mass/Vol] 0.75 mg/dL Normal 0.40-1.00 [facility] Comment on above: Result Comment: METH OD TRACEABLE TO IDMS STANDARD Performed By: #### P INR, 07568-1 #### [facility] ([id number]) [address] [place] [address] 44575 #### CMP, FEPR, 2276-4, CBCA #### [facility] ([id number]) [address], [address] [place] [address] eGFR (CKD-EPI) NON-RACE DEPENDENT >90 Normal >59 [facility] Comment on above: Result Comment: Reported eGFR is based on the CKD-EPI 2020 equation that does not use a race coefficient. Performed By: #### P INR, 59749-1 #### [facility] ([id number]) [address] [place] [address] 51890 #### CMP, FEPR, 6-4, CBCA #### [facility] ([id number]) [address], [address] [place] [address] Glucose [Mass/Vol] 87 mg/dL Normal 65-99 [facility] Comment on above: Performed By: #### P INR, 28793-7 #### [facility] ([id number]) [address] [place] [address] 49999 #### CMP, FEPR, 6-4, CBCA #### [facility] ([id number]) [address], [address] [place] [address] Potassium [Moles/Vol] 4.0 mmol/L Normal 3.5-5.0 [facility] Comment on above: Performed By: #### P INR, 47938-7 #### [facility] ([id number]) [address] [place] [address] 70975 #### CMP, FEPR, 2276-4, CBCA #### [facility] ([id number]) [address], [address] [place] [address] Protein [Mass/Vol] 7.7 g/dL Normal 6.0-8.0 [facility] Comment on above: Performed By: #### P INR, 36615-4 #### [facility] ([id number]) [address] [place] [address] 43298 #### CMP, FEPR, 2276-4, CBCA #### [facility] ([id number]) [address] [facility], [address] [place] [address] Sodium [Moles/Vol] 142 mmol/L Normal 134-146 [facility] Comment on above: Performed By: #### P INR, 51869-5 #### [facility] ([id number]) [address] [place] [address] 69311 #### CMP, FEPR, 6-4, CBCA #### [facility] ([id number]) [address] [facility], [address] [place] [address] Urea nitrogen [Mass/Vol] 13 mg/dL Normal 5-23 [facility] Comment on above: Performed By: #### P INR, 20290-6 #### [facility] ([id number]) [address] [place] [address] 40352 #### CMP, FEPR, 6-4, CBCA #### [facility] ([id number]) [address] [facility], [address] [place] [address] Coagulation factor VIII acti vity actual/normal Coag (PPP) [Relative time]on 07-13-2023 FACTOR 8 ASSAY 97 % act Normal 50-150 [facility] Comment on above: Performed By: #### P INR, 71425-7 #### [facility] ([id number]) [address] [place] [address] 04088 #### CMP, FEPR, 2276-4, CBCA #### [facility] ([id number]) [address] [facility], [address] [place] [address] FERRITINon 07-13-2023 Ferritin [Mass/Vol] 60 ng/mL Normal 11-307 [facility] Comment on above: Performed By: #### P INR, 05779-6 #### [facility] ([id number]) [address] [place] [address] 63977 #### CMP, FEPR, 2276-4, CBCA #### [facility] ([id number]) [address] [facility], [address] [place] [address] IRON PROFILEon 07-13-2023 Iron [Mass/Vol] 66 ug/dL Normal 50-170 [facility] Comment on above: Performed By: #### P INR, 90178-3 #### [facility] ([id number]) [address] [place] [address] 43451 #### CMP, FEPR, 2276-4, CBCA #### [facility] ([id number]) [address] [facility], [address] [place] [address] IRON BINDING 318 ug/dL Normal 250-425 [facility] Comment on above: Performed By: #### P INR, 68743-1 #### [facility] ([id number]) [address] [place] [address] 30708 #### CMP, FEPR, 2276-4, CBCA #### [facility] ([id number]) [address] [facility], [address] [place] [address] IRON SATURATION 21 % SATURATION Normal 15-50 [facility] Comment on above: Performed By: #### P INR, 60045-8 #### [facility] ([id number]) [address] [place] [address] 65487 #### CMP, FEPR, 2276-4, CBCA #### [facility] ([id number]) [address] [facility], [address] [place] [address] Laboratory comment Aftab (Repo rt)on 07-13-2023 UNLISTED LAB TEST Sent to reference lab Normal [facility] Comment on above: Performed By: #### A GO #### [facility] ([id number]) [address] [place] [address] Performed By: #### P INR, 53588-8 #### [facility] ([id number]) [address] [place] [address] 64238 #### CMP, FEPR, 2276-4, CBCA #### [facility] ([id number]) [address] [facility], [address] [place] [address] PROTIME AND INRon 07-13-2023 INR Coag (PPP) [Relative time] 1.0 {INR} Normal 0.8-1.1 [facility] Comment on above: Performed By: #### P INR, 85311-5 #### [facility] ([id number]) [address] [place] [address] 95146 #### CMP, FEPR, 2276-4, CBCA #### [facility] ([id number]) [address] [facility], [address] [place] [address] PT Coag (PPP) [Time] 12.0 s Normal 9.8-13.2 [facility] Comment on above: Result Comment: NEW REFERENCE RANGE Performed By: #### P INR, 35459-6 #### [facility] ([id number]) [address] [place] [address] 43890 #### CMP, FEPR, 2276-4, CBCA #### [facility] ([id number]) [address] [facility], [address] [place] [address] aPTT Coag (PPP) [Time]on aPTT Coag (Bld) [Time] 46 s High 26-37 [facility] Comment on above: Result Comment: NEW REFERENCE RANGE Performed By: #### P INR, 46390-4 #### [facility] ([id number]) [address] [place] [address] 06969 #### LOUISE, FEPR, 2276-4, CBCA #### [facility] ([id number]) [address] [facility], [address] [place] [address] vWf Ag IA Qn (PPP)on 024 VON [place] AG 118 % Normal 50-150 [facility] Comment on above: Result Comment: It [...] 69:1691, 1989 Performed By: #### P INR, 59292-5 #### [facility] ([id number]) [address] [place] [address] 02293 #### CMP, FEPR, 6-, CBCA #### [facility] ([id number]) [address] [facility], [address] [place] [address] vWf.activity actual/normal I A (PPP) [Relative ratio]on 07-13-2023 von Willebrand Factor Activity 88 % Normal 50-200 [facility] Comment on above: Performed By: #### P INR, 02124-8 #### [facility] ([id number]) [address] [place] [address] 55538 #### CMP, FEPR, 2275-, CBCA #### [facility] ([id number]) [address] [facility], [address] [place] [address] 25(OH)D3 [facility] 2022 25-hydroxyvitamin D3 [Mass/Vol] 14.6 ng/mL Low 31.0-80.0 [facility] Comment on above: Order Comment: Speci men Type: BLOOD SPECIMEN Ordering Facility: [facility] Address: [address] [place] [address] Result Comment: Clas sification of 25 [place] Vitamin D status: Deficiency/Insufficiency: < or = 30 ng/ml. Sufficiency/Optimal Levels: 31-80 ng/mL Toxicity: > 100 ng/mL. Test performed by chemiluminescent immunoassay. Performed By: #### 1 989-3 #### [facility] CLIA [id number] [address] [place] [address] [place] CBC W Auto Differential pane l (Bld)on 02-17-2023 Basophils (Bld) [#/Vol] 0.03 10*3/uL Normal <0.11 [facility] Comment on above: Order Comment: Speci men Type: BLOOD SPECIMEN Ordering Facility: [facility] Address: [address] [place] [address] Performed By: #### 5 7021-8 #### [facility] CLIA [id number] [address] [place] [address] [place] Basophils (Bld) [#/Vol] 0.03 10*3/uL <0.11 k/uL [facility] Basophils/100 WBC (Bld) 0.3 % Normal [facility] Comment on above: Order Comment: Speci men Type: BLOOD SPECIMEN Ordering Facility: [facility] Address: [address] [place] [address] Performed By: #### 5 7021-8 #### [facility] CLIA [id number] [address] [place] [address] [place] Basophils/100 WBC (Bld) 0.3 % [facility] Differential cell count method Nom (Bld) Auto Normal [facility] Comment on above: Order Comment: Speci men Type: BLOOD SPECIMEN Ordering Facility: [facility] Address: [address] [place] [address] Performed By: #### 5 7021-8 #### [facility] CLIA [id number] [address] [place] [address] [place] Differential cell count method Nom (Bld) Auto [facility] Eosinophils (Bld) [#/Vol] 0.12 10*3/uL Normal <0.46 [facility] Comment on above: Order Comment: Speci men Type: BLOOD SPECIMEN Ordering Facility: [facility] Address: [address] [place] [address] Performed By: #### 5 7021-8 #### [facility] CLIA [id number] [address] [place] [address] [place] Eosinophils (Bld) [#/Vol] 0.12 10*3/uL <0.46 k/uL [facility] Eosinophils/100 WBC (Bld) 1.2 % Normal [facility] Comment on above: Order Comment: Speci men Type: BLOOD SPECIMEN Ordering Facility: [facility] Address: [address] [place] [address] Performed By: #### 5 7021-8 #### [facility] CLIA [id number] [address] [place] [address] [place] Eosinophils/100 WBC (Bld) 1.2 % [facility] Erythrocyte distribution width (RBC) [Ratio] 12.7 % Normal 11.5-15.0 [facility] Comment on above: Order Comment: Speci men Type: BLOOD SPECIMEN Ordering Facility: [facility] Address: [address] [place] [address] Performed By: #### 5 7021-8 #### [facility] CLIA [id number] [address] [place] [address] [place] Erythrocyte distribution width (RBC) [Ratio] 12.7 % 11.5 - 15.0 % [facility] Hematocrit (Bld) [Volume fraction] 44.5 % Normal 36.0-46.0 [facility] Comment on above: Order Comment: Speci men Type: BLOOD SPECIMEN Ordering Facility: [facility] Address: [address] [place] [address] Performed By: #### 5 7021-8 #### [facility] CLIA [id number] [address] [place] [address] [place] Hematocrit (Bld) [Volume fraction] 44.5 % 36.0 - 46.0 % [facility] Hemoglobin (Bld) [Mass/Vol] 14.4 g/dL Normal 11.5-15.5 [facility] Comment on above: Order Comment: Speci men Type: BLOOD SPECIMEN Ordering Facility: [facility] Address: [address] [place] [address] Performed By: #### 5 7021-8 #### [facility] CLIA [id number] [address] [place] [address] [place] Hemoglobin (Bld) [Mass/Vol] 14.4 g/dL 11.5 - 15.5 g/dL [facility] Immature granulocytes (Bld) [#/Vol] 0.03 10*3/uL Normal <0.10 [facility] Comment on above: Order Comment: Speci men Type: BLOOD SPECIMEN Ordering Facility: [facility] Address: [address] [place] [address] Performed By: #### 5 7021-8 #### [facility] CLIA [id number] [address] [place] [address] [place] Immature granulocytes (Bld) [#/Vol] 0.03 10*3/uL <0.10 k/uL [facility] Immature granulocytes/100 WBC (Bld) 0.3 % Normal [facility] Comment on above: Order Comment: Speci men Type: BLOOD SPECIMEN Ordering Facility: [facility] Address: [address] [place] [address] Performed By: #### 5 7021-8 #### [facility] CLIA [id number] [address] [place] [address] [place] Immature granulocytes/100 WBC (Bld) 0.3 % [facility] Lymphocytes (Bld) [#/Vol] 1.93 10*3/uL Normal 1.00-4.00 [facility] Comment on above: Order Comment: Speci men Type: BLOOD SPECIMEN Ordering Facility: [facility] Address: [address] [place] [address] Performed By: #### 5 7021-8 #### [facility] CLIA [id number] [address] [place] [address] [place] Lymphocytes (Bld) [#/Vol] 1.93 10*3/uL 1.00 - 4.00 k/uL [facility] Lymphocytes/100 WBC (Bld) 19.7 % Normal [facility] Comment on above: Order Comment: Speci men Type: BLOOD SPECIMEN Ordering Facility: [facility] Address: [address] [place] [address] Performed By: #### 5 7021-8 #### [facility] CLIA [id number] [address] [place] [address] [place] Lymphocytes/100 WBC (Bld) 19.7 % [facility] MCH (RBC) [Entitic mass] 30.3 pg Normal 26.0-34.0 [facility] Comment on above: Order Comment: Speci men Type: BLOOD SPECIMEN Ordering Facility: [facility] Address: [address] [place] [address] Performed By: #### 5 7021-8 #### [facility] CLIA [id number] [address] [place] [address] [place] MCH (RBC) [Entitic mass] 30.3 pg 26.0 - 34.0 pg [facility] MCHC (RBC) [Mass/Vol] 32.4 g/dL Normal 30.5-36.0 [facility] Comment on above: Order Comment: Speci men Type: BLOOD SPECIMEN Ordering Facility: [facility] Address: [address] [place] [address] [place] [address] Performed By: #### 5 7021-8 #### [facility] CLIA [id number] [address] [place] [address] [place] MCHC (RBC) [Mass/Vol] 32.4 g/dL 30.5 - 36.0 g/dL [facility] MCV (RBC) [Entitic vol] 93.5 fL Normal 80.0-100.0 [facility] Comment on above: Order Comment: Speci men Type: BLOOD SPECIMEN Ordering Facility: [facility] Address: [address] [place] [address] Performed By: #### 5 7021-8 #### [facility] CLIA [id number] [address] [place] [address] [place] MCV (RBC) [Entitic vol] 93.5 fL 80.0 - 100.0 fL [facility] Monocytes (Bld) [#/Vol] 0.78 10*3/uL Normal <0.87 [facility] Comment on above: Order Comment: Speci men Type: BLOOD SPECIMEN Ordering Facility: [facility] Address: [address] [place] [address] Performed By: #### 5 7021-8 #### [facility] CLIA [id number] [address] [place] [address] [place] Monocytes (Bld) [#/Vol] 0.78 10*3/uL <0.87 k/uL [facility] Monocytes/100 WBC (Bld) 7.9 % Normal [facility] Comment on above: Order Comment: Speci men Type: BLOOD SPECIMEN Ordering Facility: [facility] Address: [address] [place] [address] Performed By: #### 5 7021-8 #### [facility] CLIA [id number] [address] [place] [address] [place] Monocytes/100 WBC (Bld) 7.9 % [facility] Neutrophils (Bld) [#/Vol] 6.93 10*3/uL Normal 1.45-7.50 [facility] Comment on above: Order Comment: Speci men Type: BLOOD SPECIMEN Ordering Facility: [facility] Address: [address] [place] [address] Performed By: #### 5 7021-8 #### [facility] CLIA [id number] [address] [place] [address] [place] Neutrophils (Bld) [#/Vol] 6.93 10*3/uL 1.45 - 7.50 k/uL [facility] Neutrophils/100 WBC (Bld) 70.6 % Normal [facility] Comment on above: Order Comment: Speci men Type: BLOOD SPECIMEN Ordering Facility: [facility] Address: [address] [place] [address] Performed By: #### 5 7021-8 #### [facility] CLIA [id number] [place] [address] [place] Neutrophils/100 WBC (Bld) 70.6 % [facility] Nucleated RBC (Bld) [#/Vol] 10*3/uL Normal <0.01 [facility] Comment on above: Order Comment: Speci men Type: BLOOD SPECIMEN Ordering Facility: [facility] Address: [address] [place] [address] Performed By: #### 5 7021-8 #### [facility] CLIA [id number] [address] [place] [address] [place] Nucleated RBC (Bld) [#/Vol] <0.01 k/uL [facility] Nucleated RBC/100 WBC (Bld) [Ratio] 0.0 /100 WBC Normal [facility] Comment on above: Order Comment: Speci men Type: BLOOD SPECIMEN Ordering Facility: [facility] Address: [address] [place] [address] Performed By: #### 5 7021-8 #### [facility] CLIA [id number] [address] [id number] [address] [place] Nucleated RBC/100 WBC (Bld) [Ratio] 0.0 /100 WBC [facility] Platelet mean volume (Bld) [Entitic vol] 13.2 fL High 9.0-12.7 [facility] Comment on above: Order Comment: Shani kay Type: BLOOD SPECIMEN Ordering Facility: [facility] Address: [address] [place] [address] Performed By: #### 5 7021-8 #### [facility] CLIA [id number] [address] [place] [address] [place] Platelet mean volume (Bld) [Entitic vol] 13.2 fL High 9.0 - 12.7 fL [facility] Platelets (Bld) [#/Vol] 245 10*3/uL Normal 150-400 [facility] Comment on above: Order Comment: Shani kay Type: BLOOD SPECIMEN Ordering Facility: [facility] Address: [address] [place] [address] Result Comment: Resu lts checked and verified.No clot detected. Performed By: #### 5 7021-8 #### [facility] CLIA [id number] [address] [place] [address] [place] Platelets (Bld) [#/Vol] 245 10*3/uL 150 - 400 k/uL [facility] RBC (Bld) [#/Vol] 4.76 10*6/uL Normal 3.90-5.20 [facility] Comment on above: Order Comment: Angiei rahul Type: BLOOD SPECIMEN Ordering Facility: [facility] Address: [address] [place] [address] Performed By: #### 5 7021-8 #### [facility] CLIA [id number] [facility] [place] [address] [place] RBC (Bld) [#/Vol] 4.76 10*6/uL 3.90 - 5.2 0 m/uL [facility] WBC (Bld) [#/Vol] 9.82 10*3/uL Normal 3.70-11.00 [facility] Comment on above: Order Comment: Speci men Type: BLOOD SPECIMEN Ordering Facility: [facility] Address: [address] [place] [address] Performed By: #### 5 7021-8 #### [facility] CLIA [id number] [address] [facility] [address] [id number] [address] [place] WBC (Bld) [#/Vol] 9.82 10*3/uL 3.70 - 11. 00 k/uL [facility] CNOVon 02-17-2023 CNOV Office Visit (DORIE ) DENISHA VELASCO ([id number]) 1985 F Date Time Provider Department 02/17/23 9:00 AM ALBERTO MARCUS During your visit today, we recorded the following information about you: Pulse Blood pressure Weight 96/minute 116/82 126.6 kg Alberto Marcus MD 02/17/2023 10:02 AM Signed [facility] Date of Service: 02/17/2023 Patient: Denisha Velasco Medical Record: [id number] Last Rheumatology visit: None at [facility] History of Present Illness Denisha Velasco [...] other than (more content not included)... Normal [facility] VITAMIN D 25 HYDROXYon 02-17 25-hydroxyvitamin D3 [Mass/Vol] 14.6 ng/mL Low 31.0 - 80.0 ng/mL [facility] Vit B12 SerPl-mCncon 023 Cobalamin (Vitamin B12) [Mass/Vol] 347 pg/mL Normal 232-1245 [facility] Comment on above: Order Comment: Speci men Type: BLOOD SPECIMEN Ordering Facility: [facility] Address: [address] [place] [address] Performed By: #### 2 132-9 #### [facility] CLIA [id number] [address] [facility] [place] [address] [place] SARS-CoV2 IgMon 07-07-2022 Comment Notes Normal [facility] Comment on above: Result Comment: Nega tive results to antibodies against SARS-CoV-2 are generally indicative of non-exposure to virus and lack of longevity of antibody response. Performed By: #### C VDABM #### [facility] [address] [place] [address] Dr. Karey Ordoñez Disclaimer Notes [facility] Comment on above: Result Comment: This is a lab developed test. This test has been validated in accordance with [facility] guidelines and FDA guidance document (Policy for [...] due to past or present infection with lpr-MBKL-OxV-2 coronavirus strains, such as coronavirus HKU1, NL63, OC43, or 229E. Performed By: #### C VDABM #### [facility] [address] [place] [address] Dr. Karey Ordoñez Electronically Signed By Comment Normal [facility] Comment on above: Result Comment: Fernando Scales Performed By: #### C VDABM #### [facility] [address] [place] [address] Dr. Karey Ordoñez Methodology Comment Normal [facility] Comment on above: Result Comment: Chem iluminescence Performed By: #### C VDABM #### [facility] [address] [place] [address] Dr. Karey Ordoñez References Notes [facility] Comment on above: Result Comment: Sheldon [...] application of serological tests in clinical practice. 10.1101/[id number]. Performed By: #### C VDABM #### [facility] [address] [place] [address] Dr. Karey Ordoñez Result Negative Normal [facility] Comment on above: Performed By: #### C VDABM #### [facility] [address] [place] [address] Dr. Karey Ordoñez Value 0.03 COI Normal [facility] Comment on above: Result Comment: <0.8 : Negative 0.8-<1.0: Indeterminate >=1.0: Positive Performed By: #### C VDABM #### [facility] [address] [place] [address] Dr. Karey Ordoñez SARS-CoV2 IgGon 07-04-2022 SARS-CoV-2 (COVID-19) IgG IA.rapid Ql (S/P/Bld) >800.0 Normal Neg <13.0 [facility] Comment on above: Performed By: #### C VDIGG #### [facility] [address] [place] [address] Dr. Karey Ordoñez SARS-CoV-2 (COVID-19) RNA RUBY+probe Ql (Unsp spec) Positive [facility] Comment on above: Result Comment: Anti bodies against the SARS-CoV-2 spike protein, including the receptor binding domain (RBD) were detected. It is not yet known what level of antibody to SARS-CoV-2 spike protein correlates to immunity against developing symptomatic SARS-CoV-2 disease. This assay was performed using [employer](R) SARS-CoV-2 Trimeric S IgG assay. Performed By: #### C VDIGG #### [facility] [address] [place] [address] Dr. Karey Ordoñez Office Visit (Cardiology)on 06-30-2022 Follow-up visit Diagnoses/Problems Assessed Benign essential hypertension (401.1) (I10) Vertigo (780.4) (R42) Morbid obesity with BMI of 45.0-49.9, adult (278.01,V85.42) (E66.01,Z68.42) Never smoker Orders Morbid obesity with BMI of 45.0-49.9, adult Healthy Weight Tips; Status:Complete - Retrospective Authorization; Done: [id number] Some eating tips that can help you lose weight.; Status:Complete - Retrospective Authorization; Done: [id number] SocHx: Never smoker Tobacco Use Screening; Status:Complete; Done: [id number] Patient Instructions Please bring all medicines, vitamins, [...] negative for complaint. Vitals Vital Signs Recorded: [id number] 09:45AM Heart Rate74, R Radial Vdicccez676, RUE, Sitting Kdjwtyfbz35, RUE, Sitting Height5 ft 3 in Zhnrkb778 lb BMI Xphjhdlfds34.42 kg/m2 BSA Calculated2.23 Tobacco Useb) No PHQ-2 [...] . Abdomen: (more content not included)... Normal [employer] Tobacco Screening.on 023 Adult depression screening assessment No [facility] [employer] [facility] [address] DO Work Phone: Fall risk assessment a) No falls within the last year [facility] 250 DO Work Phone: Tobacco use status CPHS b) No [facility] 250 DO Work Phone: FREE T4on 05-12-2022 Free T4 [Mass/Vol] 1.11 ng/dL Normal 0.76-1.46 [facility] Comment on above: Performed By: #### F T4 #### [facility] [address] [place] [address] Dr. Karey Ordoñez GLYCOHEMOGLOBIN A1Con 2022 ADA RECOMMENDATION SEE BELOW Normal [facility] Comment on above: Result Comment: ADA RECOMMENDED LIMIT 4.0 - 6.0 ADA THERAPEUTIC TARGET < 7.0 ACTION SUGGESTED > 7.0 Performed By: #### F T4 #### [facility] [address] [place] [address] Dr. Karey Ordoñez Glucose [Mass/Vol] 114 mg/dL Normal [facility] Comment on above: Performed By: #### F T4 #### [facility] [address] [place] [address] Dr. Karey Ordoñez HbA1c (Bld) [Mass fraction] 5.6 % Normal 4.5-6.2 [facility] Comment on above: Performed By: #### F T4 #### [facility] [address] [place] [address] Dr. Karey Ordoñez PROF CHEM 8 (BAS METB)on Anion gap [Moles/Vol] 13.5 mmol/L Normal [facility] Comment on above: Performed By: #### T SH, BMP #### [facility] [address] [place] [address] Dr. Karey Ordoñez Calcium [Mass/Vol] 9.1 mg/dL Normal 8.5-10.1 [facility] Comment on above: Performed By: #### T SH, BMP #### [facility] [address] [place] [address] Dr. Karey Ordoñez Chloride [Moles/Vol] 103 mmol/L Normal 98-107 [facility] Comment on above: Performed By: #### T SH, BMP #### [facility] [address] [place] [address] Dr. Karey Ordoñez CO2 [Moles/Vol] 26.7 mmol/L Normal 21.0-32.0 [facility] Comment on above: Performed By: #### T SH, BMP #### [facility] [address] [place] [address] Dr. Karey Ordoñez Creatinine [Mass/Vol] 0.79 mg/dL Normal 0.55-1.02 [facility] Comment on above: Performed By: #### T SH, BMP #### [facility] [address] [place] [address] Dr. Karey Ordoñez EGFR-AF ITALIAN >60 Normal >=60 [facility] Comment on above: Performed By: #### T SH, BMP #### [facility] [address] [place] [address] Dr. Karey Ordoñez EGFR-NON AF ITALIAN >60 Normal >=60 [facility] Comment on above: Performed By: #### T SH, BMP #### [facility] [address] [place] [address] Dr. Karey Ordoñez Glucose [Mass/Vol] 94 mg/dL Normal 74-106 [facility] Comment on above: Performed By: #### T SH, BMP #### [facility] [address] [place] [address] Dr. Karey Ordoñez Potassium [Moles/Vol] 4.2 mmol/L Normal 3.5-5.1 [facility] Comment on above: Performed By: #### T SH, BMP #### [facility] [address] [place] [address] Dr. Karey Ordoñez Sodium [Moles/Vol] 139 mmol/L Normal 136-145 [facility] Comment on above: Performed By: #### T SH, BMP #### [facility] [address] [place] [address] Dr. Karey Ordoñez Urea nitrogen [Mass/Vol] 12.0 mg/dL Normal 7.0-18.0 [facility] Comment on above: Performed By: #### T SH, BMP #### [facility] [address] [place] [address] Dr. Karey Ordoñez Urea nitrogen/Creatinine [Mass ratio] 15.2 mg/mg Normal [facility] Comment on above: Performed By: #### T SH, BMP #### [facility] [address] [place] [address] Dr. Karey Ordoñez TSHon 05-12-2022 TSH 1.098 uIU/mL Normal 0.358-3.740 [facility] Comment on above: Performed By: #### T SH, BMP #### [facility] [address] [place] [address] Dr. Karey Ordoñez FREE T3on 02-06-2022 FREE T3 1.79 pg/mlL Critically low 2.18-3.98 [facility] Comment on above: Performed By: #### F T3, TSH #### [facility] [address] [place] [address] Dr. Karey Ordoñez FREE T4on 02-06-2022 Free T4 [Mass/Vol] 1.12 ng/dL Normal 0.76-1.46 [facility] Comment on above: Performed By: #### F T4 #### [facility] [address] [place] [address] Dr. Karey Ordoñez TSHon 02-06-2022 TSH 2.571 uIU/mL Normal 0.358-3.740 [facility] Comment on above: Performed By: #### F T3, TSH #### [facility] [address] [address] [address] Karey Ordoñez MRI BRAIN WO CONon [...] VERO ATKINS Date: 2022-01-22 13:49 Normal [facility] CT CSPINE WO CONon 2 CT [...] by: LALI PATEL Date: 2022-01-18 10:22 Normal [facility] US CAROTID ART BILon 022 US [...] by: ZINA GREGORY Date: 2022-01-17 18:[address] [facility] [address] HEAD WO CONon 01-15-2022 CT [...] by: VERO ATKINS Date: 2022-01-15 11:07 Normal [facility] MRI KNEE RT WO CONon 022 [...] by: VERO ATKINS Date: 2021-12-18 15:05 Normal [facility] XR KNEE RT 3Von 12-10-2021 XR [...] by: VERO WILSON Date: 2021-12-10 06:40 Normal [facility] LIVER PROFILEon 10-29-2021 Albumin [Mass/Vol] 3.7 g/dL Normal 3.4-5.0 [facility] Comment on above: Performed By: #### F T4 #### [facility] [address] [address] [address] Karey Ordoñez Albumin/Globulin [Mass ratio] 0.9 {ratio} Normal [facility] Comment on above: Performed By: #### F T4 #### [facility] [address] [place], [place] [address] Dr. Karye Ordoñez ALP [Catalytic activity/Vol] 111 U/L Normal 46-116 [facility] Comment on above: Performed By: #### F T4 #### [facility] [address] [address] [address] Karey Ordoñez ALT [Catalytic activity/Vol] 22 U/L Normal 14-59 [facility] Comment on above: Performed By: #### F T4 #### [facility] [address] [address] [address] Karey Ordoñez AST [Catalytic activity/Vol] 12 U/L Critically low 15-37 [facility] Comment on above: Performed By: #### F T4 #### [facility] [address] [address] [address] Karey Ordoñez BILI, CONJUGATED 0.1 mg/dL Normal 0.0-0.2 [facility] Comment on above: Performed By: #### F T4 #### [facility] [address] [place] [address] Dr. Karey Ordoñez Bilirubin [Mass/Vol] 0.5 mg/dL Normal 0.2-1.0 [facility] Comment on above: Performed By: #### F T4 #### [facility] [address] [place] [address] Dr. Karey Ordoñez Globulin (S) [Mass/Vol] 4.1 g/dL Normal [facility] Comment on above: Performed By: #### F T4 #### [facility] [address] [place] [address] Dr. Karey Ordoñez Protein [Mass/Vol] 7.8 g/dL Normal 6.4-8.2 [facility] Comment on above: Performed By: #### F T4 #### [facility] [address] [place] [address] Dr. Karey Ordoñez INSULINon 10-02-2021 Insulin 10.5 uIU/mL Normal 2.6-24.9 [facility] Comment on above: Performed By: #### I NSULIN #### [facility] [address] [place] [address] Dr. Karey Ordoñez CBC AUTO DIFFon 10-01-2021 BASO # 0.0 103/ul Normal 0.0-0.1 [facility] Comment on above: Performed By: #### F T4 #### [facility] [address] [place] [address] Dr. Karey Ordoñez Basophils/100 WBC (Bld) 0.4 % Normal 0.2-2.0 [facility] Comment on above: Performed By: #### F T4 #### [facility] [address] [place] [address] Dr. Karey Ordoñez EO # 0.1 103/ul Normal 0.0-0.7 [facility] Comment on above: Performed By: #### F T4 #### [facility] [address] [place] [address] Dr. Karey Ordoñez Eosinophils/100 WBC (Bld) 1.1 % Normal 0.9-7.0 [facility] Comment on above: Performed By: #### F T4 #### [facility] [address] [place] [address] Dr. Karey Ordoñez Erythrocyte distribution width (RBC) [Ratio] 12.9 % Normal 11.0-15.0 [facility] Comment on above: Performed By: #### F T4 #### [facility] [address] [place] [address] Dr. aKrey Ordoñez Hematocrit (Bld) [Volume fraction] 41.5 % Normal 36.0-48.0 [facility] Comment on above: Performed By: #### F T4 #### [facility] [address] [place] [address] Dr. Karey Ordoñez Hemoglobin (Bld) [Mass/Vol] 13.0 g/dL Normal 12.0-16.0 [facility] Comment on above: Performed By: #### F T4 #### [facility] [address] [place] [address] Dr. Karey Ordoñez IG # 0.04 10e3/ul Critically high 0.00-0.03 [facility] [place] [facility] Comment on above: Performed By: #### F T4 #### [facility] [address] [place] [address] Dr. Karey Ordoñez IG % 0.5 % Normal 0.0-0.5 [facility] Comment on above: Performed By: #### F T4 #### [facility] [address] [place] [address] Dr. Karey Ordoñez LYMPH # 1.9 103/ul Normal 1.2-3.8 [facility] Comment on above: Performed By: #### F T4 #### [facility] [address] [place] [address] Dr. Karey Ordoñez Lymphocytes/100 WBC (Bld) 22.7 % Normal 20.5-60.0 [facility] Comment on above: Performed By: #### F T4 #### [facility] [address] [place] [address] Dr. Karey Ordoñez MANUAL DIFF REQ NO Normal [facility] Comment on above: Performed By: #### F T4 #### [facility] [address] [place] [address] Dr. Karey Ordoñez MCH (RBC) [Entitic mass] 28.9 pg Normal 26.7-34.0 [facility] Comment on above: Performed By: #### F T4 #### [facility] [address] [place] [address] Dr. Karey Ordoñez MCHC (RBC) [Mass/Vol] 31.3 g/dL Normal 29.9-35.2 [facility] Comment on above: Performed By: #### F T4 #### [facility] [address] [place] [address] Dr. Karey Ordoñez MCV (RBC) [Entitic vol] 92.2 fL Normal 81.0-99.0 [facility] Comment on above: Performed By: #### F T4 #### [facility] [address] [place] [address] Dr. Karey Odroñez MONO # 0.6 103/ul Normal 0.3-0.8 [facility] Comment on above: Performed By: #### F T4 #### [facility] [address] [place] [address] Dr. Karey Ordoñez Monocytes/100 WBC (Bld) 6.8 % Normal 1.7-12.0 [facility] Comment on above: Performed By: #### F T4 #### [facility] [address] [place] [address] Dr. Karey Ordoñez NEUT # 5.8 103/ul Normal 1.4-6.5 [facility] Comment on above: Performed By: #### F T4 #### [facility] [address] [place] [address] Dr. Karey Ordoñez Neutrophils/100 WBC (Bld) 68.5 % Normal 43.0-75.0 [facility] Comment on above: Performed By: #### F T4 #### [facility] [address] [place] [address] Dr. Karey Ordoñez Platelet mean volume (Bld) [Entitic vol] 12.8 fL Normal 9.5-13.5 [facility] Comment on above: Performed By: #### F T4 #### [facility] [address] [place] [address] Dr. Karey Ordoñez PLT 231 103/ul Normal 150-450 [facility] Comment on above: Performed By: #### F T4 #### [facility] [address] [place] [address] Dr. Karey Ordoñez RBC 4.50 106/ul Normal 4.20-5.40 [facility] Comment on above: Performed By: #### F T4 #### [facility] [address] [place] [address] Dr. Karey Ordoñez WBC 8.5 103/ul Normal 4.0-11.0 [facility] Comment on above: Performed By: #### F T4 #### [facility] [address] [place] [address] Dr. Karey Ordoñez FREE T4on 10-01-2021 Free T4 [Mass/Vol] 1.27 ng/dL Normal 0.76-1.46 [facility] Comment on above: Performed By: #### F T4 #### [facility] [address] [place] [address] Dr. Karey Ordoñez GLYCOHEMOGLOBIN A1Con 2021 ADA RECOMMENDATION SEE BELOW Normal [facility] Comment on above: Result Comment: ADA RECOMMENDED LIMIT 4.0 - 6.0 ADA THERAPEUTIC TARGET < 7.0 ACTION SUGGESTED > 7.0 Performed By: #### A 1C #### [facility] [address] [place], [place] [address] Dr. Karey Ordoñez Glucose [Mass/Vol] 123 mg/dL Normal [facility] Comment on above: Performed By: #### A 1C #### [facility] [id number] Karey Ordoñez HbA1c (Bld) [Mass fraction] 5.9 % Normal 4.5-6.2 [facility] Comment on above: Performed By: #### A 1C #### [facility] [address] [address] [address] Karey Ordoñez LIPID PROFILEon 10-01-2021 CHOL-HDL RATIO NORM SEE BELOW Normal [facility] Comment on above: Result Comment: 3.3 - 4.4 LOW RISK 4.4 - 7.1 AVERAGE RISK 7.1 - 11.0 MODERATE RISK >11.0 HIGH RISK Performed By: #### F T4 #### [facility] [address] [place] [address] Dr. Karey Ordoñez Cholesterol [Mass/Vol] 182 mg/dL Normal <=200 [facility] Comment on above: Performed By: #### F T4 #### [facility] [address] [address] [address] Karey Ordoñez Cholesterol in HDL [Mass/Vol] 52 mg/dL Normal 40-60 [facility] Comment on above: Performed By: #### F T4 #### [facility] [address] [address] [address] Karey Ordoñez Cholesterol in LDL [Mass/Vol] 115.8 mg/dL Normal [facility] Comment on above: Performed By: #### F T4 #### [facility] [address] [address] [address] Karey Ordoñez Cholesterol.total/Ch olesterol in HDL [Mass ratio] 3.5 {ratio} Normal [facility] Comment on above: Performed By: #### F T4 #### [facility] [address] [address] [address] Karey Ordoñez HDL NORMAL > or = 60 mg/dl - LO W CARDIOVASCULAR RISK <40 mg/dl - HIGH CARDIOVASCULAR RISK Normal [facility] Comment on above: Performed By: #### F T4 #### [facility] [address] [address] [address] Karey Ordoñez LDL CALC NORMAL SEE BELOW Normal [facility] Comment on above: Result Comment: <100 mg/dl OPTIMAL 100 - 129 mg/dl NEAR OR ABOVE OPTIMAL 130 - 159 mg/dl BORDERLINE HIGH 160 - 189 mg/dl HIGH >190 mg/dl VERY HIGH Performed By: #### F T4 #### [facility] [address] [address] [address] Karey Ordoñez Triglyceride [Mass/Vol] 71 mg/dL Normal <=150 [facility] Comment on above: Performed By: #### F T4 #### [facility] [address] [address] [address] Karey Ordoñez VLDL CALC 14.2 mg/dL Normal [facility] Comment on above: Performed By: #### F T4 #### [facility] [address] [place] [address] Dr. Karey Ordoñez PROF 14(COMP METB)on 022 Albumin [Mass/Vol] 3.9 g/dL Normal 3.4-5.0 [facility] Comment on above: Performed By: #### F T4 #### [facility] [address] [place] [address] Dr. Karey Ordoñez Albumin/Globulin [Mass ratio] 0.9 {ratio} Normal [facility] Comment on above: Performed By: #### F T4 #### [facility] [address] [place] [address] Dr. Karey Ordoñez ALP [Catalytic activity/Vol] 117 U/L Critically high 46-116 [facility] Comment on above: Performed By: #### F T4 #### [facility] [address] [place] [address] Dr. Karey Ordoñez ALT [Catalytic activity/Vol] 25 U/L Normal 14-59 [facility] Comment on above: Performed By: #### F T4 #### [facility] [address] [place] [address] Dr. Karey Ordoñez Anion gap [Moles/Vol] 14.1 mmol/L Normal [facility] Comment on above: Performed By: #### F T4 #### [facility] [address] [address] [address] Karey Ordoñez AST [Catalytic activity/Vol] 14 U/L Critically low 15-37 [facility] Comment on above: Performed By: #### F T4 #### [facility] [address] [address] [address] Karey Ordoñez Bilirubin [Mass/Vol] 0.5 mg/dL Normal 0.2-1.0 [facility] Comment on above: Performed By: #### F T4 #### [facility] [address] [address] [address] Karey Ordoñez Calcium [Mass/Vol] 9.1 mg/dL Normal 8.5-10.1 [facility] Comment on above: Performed By: #### F T4 #### [facility] [address] [address] [address] Karey Ordoñez Chloride [Moles/Vol] 102 mmol/L Normal 98-107 [facility] Comment on above: Performed By: #### F T4 #### [facility] [address] [address] [address] Karey Ordoñez CO2 [Moles/Vol] 27.7 mmol/L Normal 21.0-32.0 [facility] Comment on above: Performed By: #### F T4 #### [facility] [address] [address] [address] Karey Ordoñez Creatinine [Mass/Vol] 0.76 mg/dL Normal 0.55-1.02 [facility] Comment on above: Performed By: #### F T4 #### [facility] [address] [address] [address] Karey Ordoñez EGFR-AF ITALIAN >60 Normal >=60 [facility] Comment on above: Performed By: #### F T4 #### [facility] [address] [address] [address] Karey Ordoñez EGFR-NON AF ITALIAN >60 Normal >=60 [facility] Comment on above: Performed By: #### F T4 #### [facility] [address] [place] [address] Dr. Karey Ordoñez Globulin (S) [Mass/Vol] 4.5 g/dL Normal [facility] Comment on above: Performed By: #### F T4 #### [facility] [address] [place] [address] Dr. Karey Ordoñez Glucose [Mass/Vol] 101 mg/dL Normal 74-106 [facility] Comment on above: Performed By: #### F T4 #### [facility] [address] [place] [address] Dr. Karey Ordoñez Potassium [Moles/Vol] 3.8 mmol/L Normal 3.5-5.1 [facility] Comment on above: Performed By: #### F T4 #### [facility] [address] [place] [address] Dr. Karey Ordoñez Protein [Mass/Vol] 8.4 g/dL Critically high 6.4-8.2 [facility] Comment on above: Performed By: #### F T4 #### [facility] [address] [place] [address] Dr. Karey Ordoñez Sodium [Moles/Vol] 140 mmol/L Normal 136-145 [facility] Comment on above: Performed By: #### F T4 #### [facility] [address] [place] [address] Dr. Karey Ordoñez Urea nitrogen [Mass/Vol] 10.0 mg/dL Normal 7.0-18.0 [facility] Comment on above: Performed By: #### F T4 #### [facility] [address] [place] [address] Dr. Karey Ordoñez Urea nitrogen/Creatinine [Mass ratio] 13.2 mg/mg Normal [facility] Comment on above: Performed By: #### F T4 #### [facility] [address] [place] [address] Dr. Karey Ordoñez TSHon 10-01-2021 TSH 2.445 uIU/mL Normal 0.358-3.740 [facility] Comment on above: Performed By: #### F T4 #### [facility] [address] [address] [address] Karey Ordoñez TSH RANGE SEE BELOW Normal [facility] Comment on above: Result Comment: <0.3 4 UIU/ml HYPERTHYROID 0.34-5.60 UIU/ml EUTHYROID >5.60 UIU/ml HYPOTHYROID Performed By: #### F T4 #### [facility] [address] [address] [address] Kraey Ordoñez Social History Date Type Detail Facility Start: 04-14-2023 Alcohol intake Ex-drinker (finding) [facility] Start: 02-13-2023 End: 02-17-2023 No alcohol use No alcohol use [facility] Comment on above: 1-2 cups coffee brian y; Start: 07-29-2021 End: 02-17-2023 Tobacco smoking status NHIS Never smoked tobacco [facility] Start: 07-29-2021 End: 02-17-2023 Tobacco use and exposure Smokeless tobacco non-user [facility] Start: 02-13-2023 End: 02-17-2023 Tobacco use panel [facility] Start: 1985 Sex Assigned At Not on file C [facility] Adult Depression Screening Assessment 0 [facility] Vital Signs Date Time Vital Sign Value Performing Clinician Faci [facility] 02-17-2023 08:48-0400 Body weight 126.55 kg Alberto Marcus MD Work Phone: [facility] 02-17-2023 08:48-0400 Diastolic blood pressure 82 mm[Hg] Alberto Marcus MD Work Phone: [facility] 02-17-2023 08:48-0400 Heart rate 96 /min Alberto Marcus MD Work Phone: [facility] 02-17-2023 08:48-0400 SaO2% (BldA) [Mass fraction] 98 % Alberto Marcus MD Work Phone: [facility] 02-17-2023 08:48-0400 Systolic blood pressure 116 mm[Hg] Alberto Marcus MD Work Phone: [facility] 06-30-2022 09:45-0500 Body height 160.02 cm Allison Bullock Aichholz Work Phone: [facility] 250 DO Work Phone: 06-30-2022 09:45-0500 Body mass index (BMI) [Ratio] 49.42 kg/m2 Allison Bullock Aichholz Work Phone: [facility] 250 DO Work Phone: 06-30-2022 09:45-0500 Body surface area Derived from formula 2.23 m2 Allison Bullock Aichholz Work Phone: [facility] 250 DO Work Phone: 06-30-2022 09:45-0500 Body weight 126.55 kg Allison Bullock Aichholz Work Phone: [facility] 250 DO Work Phone: 06-30-2022 09:45-0500 Diastolic blood pressure 80 mm[Hg] Allison Bullock Aichholz Work Phone: [facility] 250 DO Work Phone: 06-30-2022 09:45-0500 Heart rate 74 /min Allison Bullock Aichholz Work Phone: [facility] 250 DO Work Phone: 06-30-2022 09:45-0500 Systolic blood pressure 128 mm[Hg] Allison Bullock Aichholz Work Phone: [facility] 250 DO Work Phone: Progress note 08-31-2023 Note Date & Type Note Facility 08-31-2023 Note HNO ID: [id number] Author: DINO SELLERS LGC Service: ? Author [...] to her home address. Dino Sellers [place], [facility] Licensed Genetic Counselor [facility] History of Present illness Narrative 08-31-2023 Dino [...] to her home address. Dino Sellers [place], [facility] Licensed Genetic Counselor documented in this encounter [facility] Progress note 02-17-2023 Note Date & Type Note Facility 02-17-2023 Note HNO ID: [id number] Author: Alberto Marcus MD Service: ? Author Type: Physician Type: Progress Notes Filed: 02/17/2023 10:02 AM Note Text: Rheumatology Clinic Date of Service: 02/17/2023 Patient: Denisha Velasco Medical Record: [id number] Last Rheumatology visit: None at [facility] History of Present Illness Denisha Velasco [...] day a (more content not included)... [facility] Instructions 02-17-2023 Patient Instructions Note Date & [...] and/or non-rheumatologic conditions. A meta-analysis from the [facility] in [place] suggested that concomitant fibromyalgia is common in patients with inflammatory arthritis, which can have a major impact on assessing disease severity and treatment decisions. The overall prevalence of fibromyalgia was 21% among patients with rheumatoid arthritis and 13% in ankylosing spondylitis, whereas the condition is reported in approximately 1% to 5% of the general population, according to Wyatt Luke, [facility], PhD, of the [facility] in [place], and colleagues. The cornerstones of therapy for [...] guidelines of fibromyalgia: (1) https://www.rheumatology.org/I-Am-A/Patient- Caregiver/Diseases-Conditions/Fibromyalgia (2) http://fibroguide.med.[facility]/ documented in this encounter [facility] History of Present illness Narrative 02-17-2023 Alberto Marcus MD - 02/17/2023 8:49 AM EDT Note Date & Type Note Facility 02-17-2023 History of Presen t illness Narrative Images from the original note were not included. Rheumatology Clinic Date of Service: 02/17/2023 Patient: Denisha Velasco Medical Record: [id number] Last Rheumatology visit: None at [facility] History of Present Illness Denisha Velasco [...] which included preparing to see the patient, [id number] patient care, completing clinical documentation, obtaining and/or reviewing separately obtained history, performing a medically appropriate examination, and counseling and educating the patient/family/caregiver. Alberto Marcus MD Rheumatology Date: February 17, 2023 Time: 8:50 AM documented in this encounter [facility] Evaluation note Note Date & Type Note Facility Evaluation note Diagnosis Fibromyalgia- Primary Mylagia and myositis, unspecified Sedimentation rate elevation Elevated sedimentation rate Fatigue, unspecified type Vitamin D deficiency Unspecified vitamin D deficiency documented in this encounter [facility] Evaluation note Note Date & Type Note Facility Evaluation note Diagnosis Elevated partial thromboplastin time (PTT)- Primary Abnormal coagulation profile documented in this encounter [facility] Evaluation note Note Date & Type Note Facility Evaluation note Diagnosis Family history of autism- Primary Family history of psychiatric condition documented in this encounter [facility] History of Present illness Narrative Note [...] of doing it at her young age. -[facility] Citel[employer] DO Work Phone: Instructions Note Date & Type Note Facility Instructions Not on filedocumented in this en counter [facility] Summary Purpose Family History No Family History [...] section and content) DATE CREATED AUTHOR 06/30/2022 [facility] DATE CREATED AUTHOR AUTHOR'S ORGANIZ ATION 07/01/2022 [employer] DATE CREATED AUTHOR AUTHOR'S ORGANIZ ATION 07/08/2022 [facility] DATE CREATED AUTHOR AUTHOR'S ORGANIZ ATION 08/01/2023 [facility] DATE CREATED AUTHOR AUTHOR'S ORGANIZ ATION 08/31/2023 [facility] DATE CREATED AUTHOR AUTHOR'S ORGANIZ ATION 09/09/2023 [facility] DATE CREATED AUTHOR AUTHOR'S ORGANIZ ATION 10/14/2023 [facility] [employer] Source Comments (unrecognize d section and content) In the event this informatio n is protected by the Federal Confidentiality of Alcohol and Drug Abuse Patient Records regulations: The Federal rules restrict any use of the information to criminally investigate or prosecute any alcohol or drug abuse patient.[facility] the event this information is protected by the Federal Confidentiality of Alcohol and Drug Abuse Patient Records regulations: The Federal rules restrict any use of the information to criminally investigate or prosecute any alcohol or drug abuse patient.[facility] Reason for Visit (unrecogniz ed section and content) Reason Comments Consult Reason Comments Genetics- parental testing Care Teams (unrecognized sec tion and content) Order Expediter Relationship Specialty Start Date End Date Allison Mendez, BRINE ROOM LABORER-SUPPLY TECHNICIAN [address] [place] [address] PCP - General Nurse Practitioner 04/14/23 FOR [...] BE BASED ON THE PRIMARY CLINICAL RECORDS. [employer] [facility]. provides no warranty or guarantee of the accuracy or completeness of information in this document.
[2023-10-19] MEDS: BUPIVACAINE HCL 0.25% PF 25 MG/10 ML VIAL 8 ML INJ (10:39)
[2023-10-19] MEDS: LIDOCAINE HCL 2% 400 MG/20 ML MDV INJ (10:40)
[2023-10-19 10:41] VITALS: BP 138/76; BP 149/78; PULSE 67; PULSE 77; O2SAT 96; O2SAT 97
--- NOTE | 2023-10-19 10:42 | W.PM.PROCNOT ---
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 An informed consent was obtained and placed on the chart.? The patient was brought to the medical procedure unit and placed in the prone position.? A timeout was completed verifying correct patient, procedure site, positioning, plan, and special equipment.? Using aseptic technique, the needle was placed at left L4. Under direct fluoroscopic visualization a Quincke-tipped spinal needle was advanced to the junction of the superior articulating process with the transverse process at the designated medial branch segment.? Preceded by negative aspiration, the above-mentioned injectate was placed in 1 mL aliquots.? The procedure was repeated at left L5, S1.? The needle was removed and insertion site was covered. The same procedure, at the same levels, was completed on the right side. The patient was taken to the postprocedural recovery area and monitored for an appropriate length of time before found suitable for discharge in the company of a responsible adult. Anesthesia: Local Surgeon: Patrick Parks Pathology: none sent Condition: stable Disposition: no change
== END 2023-10-19 10:48 | disposition home or self-care (01) ==
LOC: SURGOUT 09:37
PROVIDERS: PCP Nurse Practitioner; Visit Provider Anesthesiology
DX: M47.816 Spondylosis without myelopathy or radiculopathy, lumbar region (principal); M77.12 Lateral epicondylitis, left elbow
CPT/HCPCS: 36415; 64493; 64494; 82948; 97014; 97035; 97165

== ENCOUNTER 2023-10-19 14:17 | Outpatient (RCR) | payer OTHER, SELFPAY | END 2023-11-10 15:08 | disposition home or self-care (01) | LOC: OT 14:17 | PROVIDERS: PCP Nurse Practitioner; Visit Provider Nurse Practitioner | DX: M77.12 Lateral epicondylitis, left elbow (principal) | CPT/HCPCS: 97014; 97035; 97110; 97165 ==

== ENCOUNTER 2023-10-21 10:58 | Outpatient (OUT) | payer OTHER, SELFPAY ==
--- NOTE | 2023-10-21 11:32 | P.CN_ITS ---
Consult Note: HPI Data of Consult Patient: known to practice within the last 3 years Consult date: 09/07/23 Requesting Physician: Kadi Amador NP Primary Care Provider: Allison Mendez NP Consult Narrative Reason for consult: midback, low back pain Narrative: 37yof who presents for evaluation. longstanding mid and low back history, primarily began after childbirth several years ago. imaging reviewed, which shows multilevel degeneration in facet in lower lumbar spine. has tried various medications, including muscle relaxers, NSAIDs, percocet, prednisone, all without last benefit. has completed physical therapy and continues in the provider directed home exercise course >6 weeks, which has not provided lasting benefit. otherwise denies adverse med side effects or loss of bowel or bladder control. Recently underwent bilateral L4-5 L5-S1 facet medial branch block #1 with >90% improvement in pain and functional ability for 1 day. cc:: CC: Kadi Amador NP Review of Systems ROS Status of ROS 10 or more systems reviewed and unremark able except as noted in history and below Musculoskeletal Reports: back pain PFSH PFSH Medical History (Updated 09/07/23 @ 15:19 by Brianna Epstein) Vertigo ?R42 - Dizziness and giddiness (ICD-10) Anxiety ?F41.9 - Anxiety disorder, unspecified (ICD-10) Diabetes ?E11.9 - Type 2 diabetes mellitus without complications (ICD-10) Sleep apnea ?G47.30 - Sleep apnea, unspecified (ICD-10) Asthma ?J45.909 - Unspecified asthma, uncomplicated (ICD-10) Irregular heart beat ?I49.9 - Cardiac arrhythmia, unspecified (ICD-10) Heart murmur ?R01.1 - Cardiac murmur, unspecified (ICD-10) High blood pressure ?I10 - Essential (primary) hypertension (ICD-10) Surgical History History of hysterectomy ?Z90.710 - Acquired absence of both cervix and uterus (ICD-10) History of section ?Z98.891 - History of uterine scar from previous surgery (ICD-10) History of arthroscopy of right knee ?Z98.890 - Other specified postprocedural states (ICD-10) Social History Smoking status: Never smoker Meds Home Medications and Allergies Home Medications ?Medication ?Instructions ?Recorded ?Confirmed ?Type aspirin 81 mg tablet,delayed 81 mg PO DAILY 03/31/23 10/19/23 History release (Adult Low Dose Aspirin) atorvastatin 10 mg tablet 10 mg PO DAILY 03/31/23 10/19/23 History buspirone 10 mg tablet 10 mg PO BID 03/31/23 10/19/23 History levothyroxine 137 mcg tablet 150 mcg PO DAILY 03/31/23 10/19/23 History losartan 50 mg tablet 50 mg PO DAILY 03/31/23 10/19/23 History metformin 500 mg tablet 500 mg PO DAILY 03/31/23 10/19/23 History sertraline 100 mg tablet 100 mg PO BEDTIME 03/31/23 10/19/23 History verapamil 180 mg 24 hr 180 mg PO DAILY 03/31/23 10/19/23 History capsule,extended release VICTOZA 1.8 mg DAILY 09/07/23 History cholecalciferol (vitamin D3) 125 125 mcg PO DAILY 10/12/23 10/19/23 History mcg (5,000 unit) tablet acetaminophen 650 mg 650 mg PO Q12H PRN pain 10/15/23 10/19/23 History tablet,extended release diclofenac sodium 1 % topical gel 2 g topical QID 10/15/23 10/19/23 History magnesium 500 mg tablet 500 mg PO BID 10/15/23 10/19/23 History meclizine 25 mg tablet 12.5 mg PO BID PRN dizziness 10/15/23 10/19/23 History mecobalamin (vitamin B12) 1,000 1,000 mcg PO DAILY 10/15/23 10/19/23 History mcg chewable tablet triamcinolone acetonide 55 mcg 1 spray intranasal DAILY 10/15/23 10/19/23 History nasal spray aerosol (Nasacort) Allergies Allergy/AdvReac Type Severity Reaction Status Date / Time hydrochlorothiazide Allergy Severe Verified 10/19/23 09:56 celecoxib [From Celebrex] Allergy Unknown Verified 10/19/23 09:56 gabapentin AdvReac Severe Confusion Verified 10/19/23 09:56 Exam Narrative Exam Narrative: Psych-alert and oriented x 3. Attentive and appropriate, constitutionally normal, displays normal mood and affect per situation.? There are no obvious deficits in memory, reasoning, or intellect.? Skin-no obvious rashes, bruising, erythema noted to the patient's area of pain. Extremities- extremities are warm with minimal edema and palpable pulses. Thoracic- tenderness to palpation in thoracic spine and paraspinal musculature. Multiple trigger points expressed on palpation. Pain is elicited with extension, and lateral rotation of the thoracic spine. Range of motion is slightly diminished with these motions due to pain. Coordination remains intact.? Gait remains non-antalgic. Constitutional Documenting provider has reviewed patient's vital signs: yes Common normals: no apparent distress, oriented x3, healthy appearing, alert and well nourished General appearance: cooperative HENMT Common normals: normocephalic, hearing grossly normal bilaterally and moist oral mucous membranes Head and scalp: normocephalic Eye Common normals: PERRL Pupil: PERRL Neck & C-Spine Common normals: full ROM General: normal visual inspection Chest Common normals: inspection of chest normal Respiratory Common normals: normal respiratory effort, no retractions and no use of accessory muscles Neuro Common normals: oriented x3, CN's II-XII intact bilaterally, moves all extremities, no focal motor deficits, no sensory deficits noted and deep tendon reflexes 2+ bilaterally Sensorium/orientation: alert Motor exam: strength 5/5 throughout and no movement abnormalities noted Psych Common normals: mental status grossly normal, thought process normal, cooperative, affect normal, speech normal and activity/motor behavior normal Speech: normal speech Thought process: normal thought process Results Additional Findings Additional findings: If on a controlled substance or opioids, I have checked an [place]AR[place] report on this patient and there are no aberrancies noted in the prescribing history.??If on a controlled substance or opioid a drug screen was completed and reviewed within the last year, and if there has not been a drug screen completed we ordered one today to monitor higher risk, state monitored pain medication use. As part of providing excellent, safe, comprehensive care, the following was completed at our patient's visit: 1. A medication reconciliation and review to ensure accurate knowledge of current/active medications, including asking our patients to inform us about any [id number] medications or herbal remedies/nutritional supplements/alternative remedies. 2. A review to specifically ensure our patients have had annual screening for screening for depression, screening for tobacco use, and screening for unhealthy alcohol use. For concerning screenings had a discussion with the patient, provided patient education, and recommended follow-up with primary care provider when appropriate. If patient noted with a risk of falling, they received educati on on strength, gait, and balance training to prevent future risk of falling. 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 risks vs benefits reviewed continue HEP as tolerated continue current medications, tolerating well without side effects f/u after injection
== END 2023-10-21 10:59 | disposition home or self-care (01) ==
LOC: PM 10:59
PROVIDERS: PCP Nurse Practitioner; Visit Provider Nurse Practitioner
DX: M47.816 Spondylosis without myelopathy or radiculopathy, lumbar region (principal); M79.18 Myalgia, other site
CPT/HCPCS: G0463

== ENCOUNTER 2023-10-23 07:43 | Outpatient (OUT) | payer OTHER, SELFPAY ==
--- OUTSIDE RECORDS SUMMARY | 2023-10-23 07:47 | XMS_ITS ---
Patient Summarization (C-CDA 2.1 CCD) Created on: October 23, 2023 DENISHA VELASCO : 1985 Sex: Female Author Organization Sample organization Care Team Providers Care Housekeeping Assistant Name Role Phone Katrin LIMON, Dr. Chandler Pryor Attending Unavailable Katrin LIMON, Dr. Chandler Pryor Referring Unavailable Aichholz, Mrs. Allison Bullock Primary Care Unavailab le AichholzAllison Ara Unavailable Unavailable Unavailable AICHHOLZ, REGISTERED NURSE NURSERY ALLISON Consulting Unavailable AICHHOLZ, REGISTERED NURSE NURSERY ALLISON Attending Unavailable AICHHOLZ, REGISTERED NURSE NURSERY ALLISON Primary Care Unavailable AICHHOLZ, REGISTERED NURSE NURSERY ALLISON Admitting Unavailable AICHHOLZ, REGISTERED NURSE NURSERY ALLISON Consulting Unavailable AICHHOLZ, REGISTERED NURSE NURSERY ALLISON Attending Unavailable AICHHOLZ, REGISTERED NURSE NURSERY ALLISON Primary Care Unavailable AICHHOLZ, REGISTERED NURSE NURSERY ALLISON Admitting Unavailable AICHHOLZ, REGISTERED NURSE NURSERY ALLISON Consulting Unavailable AICHHOLZ, REGISTERED NURSE NURSERY ALLISON Attending Unavailable AICHHOLZ, REGISTERED NURSE NURSERY ALLISON Admitting Unavailable AICHHOLZ, REGISTERED NURSE NURSERY ALLISON Primary Care Unavailable FAWWAD, MEI H Admitting Unavailable AICHHOLZ, REGISTERED NURSE NURSERY ALLISON Primary Care Unavailable VERO WILSON Consulting Unavailable FAWWAD, MEI H Attending Unavailable FAWWAD, MEI H Consulting Unavailable AICHHOLZ, REGISTERED NURSE NURSERY ALLISON Consulting Unavailable AICHHOLZ, REGISTERED NURSE NURSERY ALLISON Attending Unavailable AICHHOLZ, REGISTERED NURSE NURSERY ALLISON Admitting Unavailable AICHHOLZ, REGISTERED NURSE NURSERY ALLISON Primary Care Unavailable DR ZINA GREGORY Consulting Unavailable JESSE HATCH Attending Unavailable MAMIE, JESSE Salgado Admitting Unavailable AICHHOLZ, REGISTERED NURSE NURSERY ALLISON Primary Care Unavailable JESSE HATCH Consulting Unavailable AICHHOLZ, REGISTERED NURSE NURSERY ALLISON Primary Care Unavailable JESSE HATCH Attending Unavailable JESSE HATCH Admitting Unavailable JESSE HATCH Consulting Unavailable Lali Patel Consulting Unavailable AICHHOLZ, REGISTERED NURSE NURSERY ALLISON Primary Care Unavailable DR VERO ATKINS V Consulting Unavailable PAY ., DR PONCE Attending Unavailable PAY ., DR PONCE Admitting Unavailable PAY ., DR PONCE Consulting Unavailable AICHHOLZ, REGISTERED NURSE NURSERY ALLISON Admitting Unavailable AICHHOLZ, REGISTERED NURSE NURSERY ALLISON Attending Unavailable AICHHOLZ, REGISTERED NURSE NURSERY ALLISON Primary Care Unavailable AICHHOLZ, REGISTERED NURSE NURSERY ALLISON Attending Unavailable AICHHOLZ, REGISTERED NURSE NURSERY ALLISON Admitting Unavailable AICHHOLZ, REGISTERED NURSE NURSERY ALLISON Primary Care Unavailable WEST, DR VERO De Oliveira Consulting Unavailable AICHHOLZ, REGISTERED NURSE NURSERY ALLISON Consulting Unavailable AICHHOLZ, REGISTERED NURSE NURSERY ALLISON Primary Care Unavailable [place], DR VERO De Oliveira Consulting Unavailable FAWWAD, MEI H Attending Unavailable FAWWAD, MEI H Admitting Unavailable FAWWAD, MEI H Consulting Unavailable AICHHOLZ, REGISTERED NURSE NURSERY ALLISON Admitting Unavailable AICHHOLZ, REGISTERED NURSE NURSERY ALLISON Primary Care Unavailable AICHHOLZ, REGISTERED NURSE NURSERY ALLISON Consulting Unavailable AICHHOLZ, REGISTERED NURSE NURSERY ALLISON Attending Unavailable AICHHOLZ, REGISTERED NURSE NURSERY ALLISON Admitting Unavailable AICHHOLZ, REGISTERED NURSE NURSERY ALLISON Primary Care Unavailable AICHHOLZ, REGISTERED NURSE NURSERY ALLISON Consulting Unavailable AICHHOLZ, REGISTERED NURSE NURSERY ALLISON Attending Unavailable Unavailable Primary Care Provider Unavailaz e Aichholz HR BUSINESS PARTNER CONSULTANT-REGISTERED NURSE NURSERY, Allison J Primary Care Provider JOANN MAHMOOD [...] [gabapentin] Drug Allergy 2 Other: See Comments [facility] (4 sources) hydroCHLOROthiaz ney; Translations: [hydroCHLOROthia zide CAPS] Drug Allergy 2 Other: See Comments [facility] (1 source) gabapentin Drug Allergy [facility] (3 sources) hydroCHLOROthiaz ney; Translations: [HYDROCHLOROTHIA ZIDE] Drug Allergy 4 [facility] Encounters Encounter Date Encounter Type Care Provider Facility Start: 10-13-2023 End: 10-13-2023 ambulatory ALLISON MENDEZ Not Available Start: 09-07-2023 End: 09-08-2023 ambulatory Patrick Parks MD Facility:[facility] Start: 08-31-2023 Chart abstracting Dino Garcia [facility] Work Phone: [facility] Comment on above: Genetics- parental t esting Start: 07-30-2023 End: 07-30-2023 ambulatory ALLISON MENDEZ Not Available Start: 07-24-2023 End: 07-25-2023 ambulatory TAQUERIA SOLIS [facility] Start: 07-15-2023 Orders Only Taqueria Solis MD Work Phone: [facility] Comment on above: Elevated partial thr omboplastin time (PTT) (Primary Dx) Start: 07-13-2023 End: 07-14-2023 ambulatory JOANN MAHMOOD [facility] Start: 04-30-2023 End: 04-30-2023 ambulatory ALLISON MENDEZ Not Available Start: 02-17-2023 End: 02-18-2023 ambulatory ALBERTO MARCUS Facility:[facility] Start: 02-17-2023 End: 02-17-2023 Office outpatient new 60 minutes Alberto Marcus MD Work Phone: Rheumatology Comment on above: Fibromyalgia (Primar y Dx); Sedimentation rate elevation; Fatigue, unspecified type; Vitamin D deficiency Start: 07-07-2022 Encounter for antibo dy response examination LAURO MENDEZ [facility] Start: 07-03-2022 End: 07-04-2022 ambulatory REGISTERED NURSE NURSERY ALLISON MENDEZ Facility:[facility] Start: 07-03-2022 End: 07-04-2022 Encounter for antibody response examination LAURO MENDEZ Facility:[facility] Start: 06-30-2022 Office outpatient vi sit 15 minutes Allison Mendez Work Phone: [facility] 250 DO Work Phone: Start: 06-30-[address] Chandler Wilkes II Facility: Start: 05-12-2022 End: 05-13-2022 ambulatory REGISTERED NURSE NURSERY ALLISON AICHHOLZ Facility:[facility] Start: 03-04-2022 End: 03-04-2022 ambulatory JESSE HATCH Facility:[facility] Start: 02-06-2022 End: 02-07-2022 ambulatory REGISTERED NURSE NURSERY ALLISON AICHHOLZ Facility:[facility] Start: 01-22-2022 End: 01-23-2022 ambulatory REGISTERED NURSE NURSERY ALLISON AICHHOLZ Facility:[facility] Start: 01-18-2022 End: 01-18-2022 ambulatory REGISTERED NURSE NURSERY ALLISON AICHHOLZ Facility:[facility] Start: 01-17-2022 End: 01-18-2022 ambulatory REGISTERED NURSE NURSERY ALLISON AICHHOLZ Facility:[facility] Start: 01-15-2022 End: 01-15-2022 ambulatory REGISTERED NURSE NURSERY ALLISON AICHHOLZ Facility:[facility] Start: 12-18-2021 End: 12-19-2021 ambulatory REGISTERED NURSE NURSERY ALLISON AICHHOLZ Facility:[facility] Start: 12-09-2021 End: 12-10-2021 ambulatory SHAIKH Rasheed LARA Facility:[facility] Start: 10-29-2021 End: 10-30-2021 ambulatory REGISTERED NURSE NURSERY ALLISON AICHHOLZ Facility:[facility] Start: 10-01-2021 End: 10-02-2021 ambulatory REGISTERED NURSE NURSERY ALLISNO AICHHOLZ Facility:[facility] Start: 08-13-2021 End: 10-01-2021 ambulatory REGISTERED NURSE NURSERY ALLISON AICHHOLZ Facility:[facility] Immunizations Immunization Date Immunization Notes Care Provider [facility] 04-25-2022 influenza virus vacc ine, unspecified formulation Taqueria Solis MD [facility] 09-10-2020 Pfizer-BioNTech COVI D-19 Vacc 30 MCG/0.3ML Intramuscular Suspension Allison Mendez Work Phone: [facility] 250 DO Work Phone: 08-20-2020 Pfizer-BioNTech COVI D-19 Vacc 30 MCG/0.3ML Intramuscular Suspension Allison Mendez Work Phone: -[facility] 250 DO Work Phone: Medications Current [...] on above: Take 1 capsule by mo [facility] every afternoon. Completed/Discontinued Medications Medication Drug Class(es) Dates Sig (Normalized) Sig (Original) amitriptyline hydrochloride 25 mg oral tablet (1 source) Tricyclic Antidepressant Amitriptyline HCl - 25 MG Oral Tablet 1/2 to 1 tab at night Quantity: 0 Refills: 0 Ordered: 30-Jun-2022 DO Active Payers Date Payer Category Payer Unknown 2019 Medicaid [id number] 1985 Unknown [id number] 2.16. [id number] 1985 Unknown [id number] 2.16.84 0.1.872054.3.579.2.593 1985 Unknown [id number] 2.16.84 0.1.436530.3.579.2.593 1985 Unknown [id number] 2.16.84 0.1.362289.3.579.2.593 1985 Unknown [id number] 2.16.84 0.1.101385.3.579.2.593 1985 Unknown [id number] 2.16.84 0.1.341577.3.579.2.593 1985 Unknown [id number] 2.16.84 0.1.379962.3.579.2.593 1985 Unknown [id number] 2.16.84 0.1.982751.3.579.2.593 1985 Unknown [id number] 2.16.84 0.1.572421.3.579.2.593 1985 Unknown [id number] 2.16.84 0.1.827323.3.579.2.593 1985 Unknown [id number] 2.16.84 0.1.218608.3.579.2.593 1985 Unknown [id number] 2.16.84 0.1.969871.3.579.2.593 1985 Unknown [id number] 2.16.84 0.1.571674.3.579.2.593 1985 Unknown [id number] 2.16.84 0.1.936840.3.579.2.593 1985 Unknown [id number] 2.16.8 40.1.298678.3.579.2.1286 1985 Unknown [id number] 2.16.8 40.1.087839.3.579.2.1286 1985 Unknown [id number] 2.16. 840.1.510734.3.579.2.196 1985 Unknown [id number] 2.16.84 0.1.146077.3.579.2.1259 1985 Unknown [id number] 2.16.84 0.1.945626.3.579.2.1259 1985 Unknown [id number] 2.16.840 .1.255356.3.579.2.1259 1961 Unknown [id number] Plan of Treatment Date Care Activity Detail Author Start: 04-14-2024 Adult BMI Screening Adult BMI Screen ing [facility] Start: 04-14-2024 Depression Screening Depression Scre ening [facility] Start: 04-14-2024 Tobacco Screening Tobacco Screening [facility] Start: 04-11-2024 FUV, Provider: hCandler Wilkes, Status: Fausto, Time: 11:00 AM FUV, Provider: Chandler Wilkes, Status: Fausto, [facility]: 11:00 [facility] Work Phone: Start: 01-10-2024 Influenza vaccination Influenz a Vaccine (Season Ended) [facility] Start: 05-11-2023 Behavioral Health Screening Behavioral Health Screening [facility] Start: 02-17-2023 End: 04-19-2023 Cobalamin (Vitamin B12) [Mass/volume] in Serum or Plasma [facility] Work Phone: Comment on above: Expected: 02/17/2023 , Expires: 04/19/2023 Start: 02-17-2023 End: 04-19-2023 IMMUNOGLOBULINS YARI IMMUNOGLOBULINS YARI Lab Routine Sedimentation rate elevation Expected: 02/17/2023, Expires: 04/19/2023 [facility] Work Phone: Comment on above: Expected: 02/17/2023 , Expires: 04/19/2023 Start: 02-17-2023 End: 04-19-2023 PROTEIN ELECTROPHORESIS SERUM W/INTERP PROTEIN ELECTROPHORESIS SERUM W/INTERP Lab Routine Sedimentation rate elevation Expected: 02/17/2023, Expires: 04/19/2023 [facility] Work Phone: Comment on above: Expected: 02/17/2023 , Expires: 04/19/2023 Start: 01-09-2023 Covid-19 Vaccine ( season) Covid-19 Vaccine ( season) [facility] Start: 01-09-2023 Influenza vaccination C [facility] Start: 05-11-2022 Depression Assessment Depression Ass essment [facility] Start: 12-25-2013 HPV Testing HPV Testing [facility] Start: 12-25-2013 Screening for malign ant neoplasm of cervix HPV Testing [facility] Start: 12-25-2004 Pap Testing Pap Testing [facility] Start: 12-25-2004 Screening for malign ant neoplasm of cervix Pap Testing [facility] Start: 12-25-2002 DTaP,Tdap and Td Vac cines (1 - Tdap) DTaP,Tdap and Td Vaccines (1 - Tdap) [facility] Start: 12-25-2002 Hepatitis B Vaccine (1 of 3 - 19+ 3-dose series) Hepatitis B Vaccine (1 of 3 - 19+ 3-dose series) [facility] Start: 12-25-2002 Urine microalbumin profile DTaP,Tdap,Td Vaccine (1 - Tdap) [facility] Start: 12-25-2001 Adult BMI Follow Up Plan Adult BMI F ollow Up Plan [facility] Start: 12-25-2001 Hepatitis C Screening Hepatitis C [facility] Start: 12-25-2001 Hepatitis C screening Hepatitis C [facility] Start: 12-25-2001 HIV Screening HIV Screening [facility] Start: 12-25-2001 HIV screening HIV Screening [facility] Start: 1985 Hepatitis B Vaccine (1 of 3 - 3-dose series) Hepatitis B Vaccine (1 of 3 - 3-dose series) [facility] End: 07-14-2024 Inhibitor screen Inhibitor screen Lab Routine Elevated partial thromboplastin time (PTT) 1 Occurrences starting 07/15/2023 until 07/14/2024 [facility] Work Phone: Comment on above: 1 Occurrences starti ng 07/15/2023 until 07/14/2024 SWAB COLLECTION SPECIMEN SWAB CO LLECTION SPECIMEN Lab Routine Family history of autism Ordered: 08/31/2023 [facility] Work Phone: Comment on above: Ordered: 08/31/2023 [...] 03-04-2022 Episodic Other aftercare (1 source) Other long-term (current) drug therapy; Translations: [OTH CITRIX ARCHITECT CURRENT DRUG THERAPY] Onset: 03-05-2022 Episodic Other aftercare (1 source) 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 drugs; Translations: [CITRIX ARCHITECT USE ORAL HYPOGLYCEMIC DX] Onset: 01-16-2022 Episodic [...] Coag (Bld) [Time] 42 s High 26-37 [facility] Comment on above: Performed By: #### P INR, 09812-2 #### [facility] ([id number]) [address] [place] [address] #### CMP, FEPR, 2276-4, CBCA #### [facility] ([id number]) [address], [address] [place] [address] aPTT Coag (Bld) [Time] 35 s Normal 26-37 [facility] Comment on above: Performed By: #### P INR, 51668-0 #### [facility] ([id number]) [address] [place] [address] 72525 #### CMP, FEPR, 2276-4, CBCA #### [facility] ([id number]) [address], [address] [place] [address] PT Coag (PPP) [Time] 11.8 s Normal 9.8-13.2 [facility] Comment on above: Performed By: #### P INR, 46849-8 #### [facility] ([id number]) [address] [place] [address]14 #### CMP, FEPR, 6-4, CBCA #### [facility] ([id number]) [address], [address] [place] [address] Coagulation factor IX activi ty actual/normal Coag (PPP) [Relative time]on 07-24-2023 FACTOR 9 ASSAY 134 % act Normal 65-150 [facility] Comment on above: Performed By: #### P INR, 07664-1 #### [facility] ([id number]) [address] [place] [address] 63726 #### CMP, FEPR, 2275-4, CBCA #### [facility] ([id number]) [address], [address] [place] [address] Coagulation factor VIII acti vity actual/normal Coag (PPP) [Relative time]on 07-24-2023 FACTOR 8 ASSAY 120 % act Normal 50-150 [facility] Comment on above: Performed By: #### P INR, 79724-7 #### [facility] ([id number]) [address] [place] [address] 79[address] #### CMP, FEPR, 2276-4, CBCA #### [facility] ([id number]) [address], [address] [place] [address] Coagulation factor XI activi ty actual/normal Coag (PPP) [Relative time]on 07-24-2023 FACTOR 11 ASSAY 153 % act High 65-150 [facility] Comment on above: Performed By: #### P INR, 18619-3 #### [facility] ([id number]) [address] [place] [address] 95113 #### CMP, FEPR, 6-4, CBCA #### [facility] ([id number]) [address], [address] [place] [address] Coagulation factor XII activ ity actual/normal Coag (PPP) [Relative time]on 07-24-2023 FACTOR 12 ASSAY 86 % act Normal 50-150 [facility] Comment on above: Performed By: #### P INR, 05699-3 #### [facility] ([id number]) [address] [place] [address] 94411 #### CMP, FEPR, 6-4, CBCA #### [facility] ([id number]) [address], [address] [place] [address] [facility] ORDERon 024 TEST NAME [id number] VWF COLLAGEN III BINDING NACIT PLASMA Normal [facility] Comment on above: Result Comment: Maria Alejandra ected on 07/14 AT 1430: Previously reported as [id number] VWF COLLAGEN III BINDING Performed By: #### P INR, 39288-4 #### [facility] ([id number]) [address] [place] [address] 31722 #### CMP, FEPR, 2276-4, CBCA #### [facility] ([id number]) [address] [place] [address], [address] [place] [address] TEST NAME [id number] VWF GPIBM ACTIVITY NACIT PLASMA Normal [facility] Comment on above: Performed By: #### P INR, 82713-3 #### [facility] ([id number]) [address] [place] [address] 20583 #### CMP, FEPR, 2276-4, CBCA #### [facility] ([id number]) [address] [place] [address], [address] [place] [address] TEST RESULT SEE NOTE Normal [facility] Comment on above: Result Comment: NOTE Test name Result Flag Units RefIntvl VWF Collagen III Binding 110 IU/dL 50-203 For additional information, please visit [email or web address] This test was developed and its performance characteristics determined by [facility]. It has not been cleared or approved by the US Food and Drug Administration. This test is used for clinical purposes. It should not be regarded as investigational or for research. This laboratory is certified under the Clinical Laboratory Improvement Amendments (CLIA) as qualified to perform high complexity clinical laboratory testing. Performed by: [facility]. [address] [place] [address] Performed By: #### P INR, 40612-7 #### [facility] ([id number]) [address] [place] [address] 45071 #### CMP, FEPR, 2276-4, CBCA #### [facility] ([id number]) [address], [address] [place] [address] Result Comment: NOTE Test name Result Flag Units RefIntvl VWF GPIbM Activity 86 IU/dL 52-180 For additional information, please visit [email or web address] This test was developed and its performance characteristics determined by [facility]. It has not been cleared or approved by the US Food and Drug Administration. This test is used for clinical purposes. It should not be regarded as investigational or for research. This laboratory is certified under the Clinical Laboratory Improvement Amendments (CLIA) as qualified to perform high complexity clinical laboratory testing. Performed by: [facility]. [address] [place] [address] CBC AND AUTO DIFFon 07-13-19 ABSOLUTE BASOPHIL 0.0 X10E9/L Normal 0.0-0.2 [facility] Comment on above: Performed By: #### P INR, 47540-9 #### [facility] ([id number]) [address] [place] [address] 16245 #### CMP, FEPR, 2276-4, CBCA #### [facility] ([id number]) [address], [address] [place] [address] ABSOLUTE NEUTROPHIL 5.0 X10E9/L Normal 1.5-6.6 [facility] Comment on above: Performed By: #### P INR, 14391-3 #### [facility] ([id number]) [address] [place] [address] 49827 #### CMP, FEPR, 2276-4, CBCA #### [facility] ([id number]) [address] [facility] [facility] [facility], [address] [place] [address] Basophils/100 WBC (Bld) 0.3 % Normal [facility] Comment on above: Performed By: #### P INR, 13995-0 #### [facility] ([id number]) [address] [place] [address] 01757 #### CMP, FEPR, 2276-4, CBCA #### [facility] ([id number]) [address] [facility] [facility] [facility], [address] [place] [address] Eosinophils (Bld) [#/Vol] 0.1 10*3/uL Normal 0.0-0.4 [facility] Comment on above: Performed By: #### P INR, 15943-1 #### [facility] ([id number]) [address] [place] [address] 62095 #### CMP, FEPR, 2275-4, CBCA #### [facility] ([id number]) [address], [address] [place] [address] Eosinophils/100 WBC (Bld) 1.3 % Normal [facility] Comment on above: Performed By: #### P INR, 57742-2 #### [facility] ([id number]) [address] [place] [address] 91760 #### CMP, FEPR, 6-4, CBCA #### [facility] ([id number]) [address] [facility] [facility] [facility], [address] [place] [address] Erythrocyte distribution width (RBC) [Ratio] 13.2 % Normal 11.5-15.0 [facility] Comment on above: Performed By: #### P INR, 01650-6 #### [facility] ([id number]) [address] [place] [address] 97181 #### CMP, FEPR, 6-4, CBCA #### [facility] ([id number]) [address], [address] [place] [address] Hematocrit (Bld) [Volume fraction] 42.4 % Normal 35-47 [facility] Comment on above: Performed By: #### P INR, 33729-9 #### [facility] ([id number]) [address] [place] [address] 92511 #### CMP, FEPR, 2276-4, CBCA #### [facility] ([id number]) [address], [address] [place] [address] Hemoglobin (Bld) [Mass/Vol] 13.9 g/dL Normal 11.7-15.5 [facility] Comment on above: Performed By: #### P INR, 32064-8 #### [facility] ([id number]) [address] [place] [address] 47154 #### CMP, FEPR, 2276-4, CBCA #### [facility] ([id number]) [address], [address] [place] [address] Lymphocytes (Bld) [#/Vol] 2.0 10*3/uL Normal 1.0-3.5 [facility] Comment on above: Performed By: #### P INR, 66807-8 #### [facility] ([id number]) [address] [place] [address] 81886 #### CMP, FEPR, 2276-4, CBCA #### [facility] ([id number]) [address], [address] [place] [address] Lymphocytes/100 WBC (Bld) 26.7 % Normal [facility] Comment on above: Performed By: #### P INR, 78969-3 #### [facility] ([id number]) [address] [place] [address] 80694 #### CMP, FEPR, 2276-4, CBCA #### [facility] ([id number]) [address] [place] [address], [address] [place] [address] MCH (RBC) [Entitic mass] 29.6 pg Normal 27-34 [facility] Comment on above: Performed By: #### P INR, 79391-3 #### [facility] ([id number]) [address] [place] [address] 96602 #### CMP, FEPR, 6-4, CBCA #### [facility] ([id number]) [address] [place] [address], [facility] [[email or web address] [address] [place] [address] MCHC (RBC) [Mass/Vol] 32.8 g/dL Normal 32-36 [facility] Comment on above: Performed By: #### P INR, 19117-4 #### [facility] ([id number]) [address] [place] [address] 08847 #### CMP, FEPR, 6-4, CBCA #### [facility] ([id number]) [address] [place] [address], [address] [address] MCV (RBC) [Entitic vol] 90 fL Normal 80-100 [facility] Comment on above: Performed By: #### P INR, 87654-7 #### [facility] ([id number]) [address] [place] [address] 75056 #### CMP, FEPR, 6-4, CBCA #### [facility] ([id number]) [address] [place] [address], [facility] [[email or web address]] [address] [place] [address] Monocytes (Bld) [#/Vol] 0.5 10*3/uL Normal 0-0.9 [facility] Comment on above: Performed By: #### P INR, 61350-0 #### [facility] ([id number]) [address] [place] [address] 06314 #### CMP, FEPR, 2276-4, CBCA #### [facility] ([id number]) [address] [place] [address], [address] [place] [address] Monocytes/100 WBC (Bld) 6.9 % Normal [facility] Comment on above: Performed By: #### P INR, 45727-2 #### [facility] ([id number]) [address] [place] [address] 61434 #### CMP, FEPR, 2276-4, CBCA #### [facility] ([id number]) [address] [place] [address], [address] [place] [id number] Neutrophils/100 WBC (Bld) 64.8 % Normal [facility] Comment on above: Performed By: #### P INR, 41256-1 #### [facility] ([id number]) [address] [place] [id number] #### CMP, FEPR, 2276-4, CBCA #### [facility] ([id number]) [address] [place] [address], [address] [place] [id number] Platelet mean volume (Bld) [Entitic vol] 11.5 fL Normal 7-12 [facility] Comment on above: Performed By: #### P INR, 92671-2 #### [facility] ([id number]) [address] [place] [address] 70347 #### CMP, FEPR, 2276-4, CBCA #### [facility] ([id number]) [address] [place] [address], [address] [place] [address] Platelets (Bld) [#/Vol] 205 10*3/uL Normal 150-450 [facility] Comment on above: Performed By: #### P INR, 65811-1 #### [facility] ([id number]) [address] [place] [address] 17013 #### CMP, FEPR, 2276-4, CBCA #### [facility] ([id number]) [address] [facility], [address] [place] [address] RBC COUNT 4.70 X10E12/L Normal 3.80-5.20 [facility] Comment on above: Performed By: #### P INR, 80768-4 #### [facility] ([id number]) [address] [place] [address] 51587 #### CMP, FEPR, 2276-4, CBCA #### [facility] ([id number]) [address] [place] [address], [address] [place] [address] WBC (Bld) [#/Vol] 7.7 10*3/uL Normal 4.0-11.0 [facility] Comment on above: Performed By: #### P INR, 77015-1 #### [facility] ([id number]) [address] [place] [address] 66467 #### CMP, FEPR, 2276-4, CBCA #### [facility] ([id number]) [address] [place] [address], [address] [place] [address] COMPREHENSIVE METABOLIC PANE Drew 07-13-2023 Albumin [Mass/Vol] 4.6 g/dL Normal 3.2-5.3 [facility] Comment on above: Performed By: #### P INR, 24672-1 #### [facility] ([id number]) [address] [place] [address] 82238 #### CMP, FEPR, 2276-4, CBCA #### [facility] ([id number]) [address] [place] [address], [address] [place] [address] ALP [Catalytic activity/Vol] 118 U/L Normal 39-130 [facility] Comment on above: Performed By: #### P INR, 65078-8 #### [facility] ([id number]) [address] [place] [address] 39043 #### CMP, FEPR, 6-4, CBCA #### [facility] ([id number]) [address] [facility], [address] [place] [address] ALT [Catalytic activity/Vol] 12 U/L Normal 0-31 [facility] Comment on above: Performed By: #### P INR, 51030-1 #### [facility] ([id number]) [address] [place] [address] 12907 #### CMP, FEPR, 6-4, CBCA #### [facility] ([id number]) [address] [facility] [facility], [address] [place] [address] Anion gap [Moles/Vol] 10 mmol/L Normal 5-15 [facility] Comment on above: Performed By: #### P INR, 36783-1 #### [facility] ([id number]) [address] [place] [address] 94907 #### CMP, FEPR, 6-4, CBCA #### [facility] ([id number]) [address] [facility] [facility], [address] [place] [address] AST [Catalytic activity/Vol] 13 U/L Normal 0-41 [facility] Comment on above: Performed By: #### P INR, 01742-5 #### [facility] ([id number]) [address] [place] [address] 29599 #### CMP, FEPR, 6-4, CBCA #### [facility] ([id number]) [address] [facility] [facility], [address] [place] [address] Bilirubin [Mass/Vol] 0.4 mg/dL Normal 0.3-1.2 [facility] Comment on above: Performed By: #### P INR, 99767-6 #### [facility] ([id number]) [address] [place] [address] 32349 #### CMP, FEPR, 2276-4, CBCA #### [facility] ([id number]) [address] [facility] [facility], [address] [place] [address] Calcium [Mass/Vol] 9.8 mg/dL Normal 8.5-10.5 [facility] Comment on above: Performed By: #### P INR, 82395-3 #### [facility] ([id number]) [address] [place] [address] 95126 #### CMP, FEPR, 2276-4, CBCA #### [facility] ([id number]) [address] [facility] [facility], [address] [place] [address] Chloride [Moles/Vol] 105 mmol/L Normal 98-109 [facility] Comment on above: Performed By: #### P INR, 19921-2 #### [facility] ([id number]) [address] [place] [address] 96968 #### CMP, FEPR, 2276-4, CBCA #### [facility] ([id number]) [address] [facility] [facility], [address] [place] [address] CO2 [Moles/Vol] 27 mmol/L Normal 22-32 [facility] Comment on above: Performed By: #### P INR, 24171-9 #### [facility] ([id number]) [address] [place] [address] 72615 #### CMP, FEPR, 2276-4, CBCA #### [facility] ([id number]) [address], [address] [place] [address] Creatinine [Mass/Vol] 0.75 mg/dL Normal 0.40-1.00 [facility] Comment on above: Result Comment: METH OD TRACEABLE TO IDMS STANDARD Performed By: #### P INR, 69145-5 #### [facility] ([id number]) [address] [place] [address] 79060 #### CMP, FEPR, 2276-4, CBCA #### [facility] ([id number]) [address], [address] [place] [address] eGFR (CKD-EPI) NON-RACE DEPENDENT >90 Normal >59 [facility] Comment on above: Result Comment: Reported eGFR is based on the CKD-EPI 2020 equation that does not use a race coefficient. Performed By: #### P INR, 12988-9 #### [facility] ([id number]) [address] [place] [address] 03783 #### CMP, FEPR, 6-4, CBCA #### [facility] ([id number]) [address], [address] [place] [address] Glucose [Mass/Vol] 87 mg/dL Normal 65-99 [facility] Comment on above: Performed By: #### P INR, 95938-9 #### [facility] ([id number]) [address] [place] [address] 34601 #### CMP, FEPR, 6-4, CBCA #### [facility] ([id number]) [address], [address] [place] [address] Potassium [Moles/Vol] 4.0 mmol/L Normal 3.5-5.0 [facility] Comment on above: Performed By: #### P INR, 50338-5 #### [facility] ([id number]) [address] [place] [address] 35986 #### CMP, FEPR, 2276-4, CBCA #### [facility] ([id number]) [address], [address] [place] [address] Protein [Mass/Vol] 7.7 g/dL Normal 6.0-8.0 [facility] Comment on above: Performed By: #### P INR, 97441-9 #### [facility] ([id number]) [address] [place] [address] 46906 #### CMP, FEPR, 2276-4, CBCA #### [facility] ([id number]) [address] [facility], [address] [place] [address] Sodium [Moles/Vol] 142 mmol/L Normal 134-146 [facility] Comment on above: Performed By: #### P INR, 42667-0 #### [facility] ([id number]) [address] [place] [address] 70442 #### CMP, FEPR, 6-4, CBCA #### [facility] ([id number]) [address] [facility], [address] [place] [address] Urea nitrogen [Mass/Vol] 13 mg/dL Normal 5-23 [facility] Comment on above: Performed By: #### P INR, 95855-5 #### [facility] ([id number]) [address] [place] [address] 23988 #### CMP, FEPR, 6-4, CBCA #### [facility] ([id number]) [address] [facility], [address] [place] [address] Coagulation factor VIII acti vity actual/normal Coag (PPP) [Relative time]on 07-13-2023 FACTOR 8 ASSAY 97 % act Normal 50-150 [facility] Comment on above: Performed By: #### P INR, 58411-8 #### [facility] ([id number]) [address] [place] [address] 75268 #### CMP, FEPR, 2276-4, CBCA #### [facility] ([id number]) [address] [facility], [address] [place] [address] FERRITINon 07-13-2023 Ferritin [Mass/Vol] 60 ng/mL Normal 11-307 [facility] Comment on above: Performed By: #### P INR, 29692-4 #### [facility] ([id number]) [address] [place] [address] 39407 #### CMP, FEPR, 2276-4, CBCA #### [facility] ([id number]) [address] [facility], [address] [place] [address] IRON PROFILEon 07-13-2023 Iron [Mass/Vol] 66 ug/dL Normal 50-170 [facility] Comment on above: Performed By: #### P INR, 10431-1 #### [facility] ([id number]) [address] [place] [address] 57396 #### CMP, FEPR, 2276-4, CBCA #### [facility] ([id number]) [address] [facility], [address] [place] [address] IRON BINDING 318 ug/dL Normal 250-425 [facility] Comment on above: Performed By: #### P INR, 63706-2 #### [facility] ([id number]) [address] [place] [address] 49771 #### CMP, FEPR, 2276-4, CBCA #### [facility] ([id number]) [address] [facility], [address] [place] [address] IRON SATURATION 21 % SATURATION Normal 15-50 [facility] Comment on above: Performed By: #### P INR, 31543-8 #### [facility] ([id number]) [address] [place] [address] 30706 #### CMP, FEPR, 2276-4, CBCA #### [facility] ([id number]) [address] [facility], [address] [place] [address] Laboratory comment Aftab (Repo rt)on 07-13-2023 UNLISTED LAB TEST Sent to reference lab Normal [facility] Comment on above: Performed By: #### A GO #### [facility] ([id number]) [address] [place] [address] 43171 Performed By: #### P INR, 59290-7 #### [facility] ([id number]) [address] [place] [address] 71630 #### CMP, FEPR, 2276-4, CBCA #### [facility] ([id number]) [address] [facility], [address] [place] [address] PROTIME AND INRon 07-13-2023 INR Coag (PPP) [Relative time] 1.0 {INR} Normal 0.8-1.1 [facility] Comment on above: Performed By: #### P INR, 23554-9 #### [facility] ([id number]) [address] [place] [address] 76928 #### CMP, FEPR, 2276-4, CBCA #### [facility] ([id number]) [address] [facility], [address] [place] [address] PT Coag (PPP) [Time] 12.0 s Normal 9.8-13.2 [facility] Comment on above: Result Comment: NEW REFERENCE RANGE Performed By: #### P INR, 55098-1 #### [facility] ([id number]) [address] [place] [address] 95511 #### CMP, FEPR, 2276-4, CBCA #### [facility] ([id number]) [address] [facility], [address] [place] [address] aPTT Coag (PPP) [Time]on aPTT Coag (Bld) [Time] 46 s High 26-37 [facility] Comment on above: Result Comment: NEW REFERENCE RANGE Performed By: #### P INR, 97004-9 #### [facility] ([id number]) [address] [place] [address] 38007 #### L[place]ISE, FEPR, 2276-4, CBCA #### [facility] ([id number]) [address] [facility], [address] [place] [address] vWf Ag IA Qn (PPP)on 024 VON WIL[place]BRAND AG 118 % Normal 50-150 [facility] Comment on above: Result Comment: [...] 69:1691, 1989 Performed By: #### P INR, 94568-6 #### [facility] ([id number]) [address] [place] [address] 94421 #### CMP, FEPR, 6-, CBCA #### [facility] ([id number]) [address] [facility], [address] [place] [address] vWf.activity actual/normal I A (PPP) [Relative ratio]on 07-13-2023 von Willebrand Factor Activity 88 % Normal 50-200 [facility] Comment on above: Performed By: #### P INR, 37622-6 #### [facility] ([id number]) [address] [place] [address] 77729 #### CMP, FEPR, 2275-, CBCA #### [facility] ([id number]) [address] [facility], [address] [place] [address] 25(OH)D3 [facility] 2022 25-hydroxyvitamin D3 [Mass/Vol] 14.6 ng/mL Low 31.0-80.0 [facility] Comment on above: Order Comment: Speci men Type: BLOOD SPECIMEN Ordering Facility: [facility] Address: [address] [place] [address] Result Comment: Clas sification of 25 [place] Vitamin D status: Deficiency/Insufficiency: < or = 30 ng/ml. Sufficiency/Optimal Levels: 31-80 ng/mL Toxicity: > 100 ng/mL. Test performed by chemiluminescent immunoassay. Performed By: #### 1 989-3 #### [facility] CLIA [id number] [address] [place] [address] [place] CBC W Auto Differential pane l (Bld)on 02-17-2023 Basophils (Bld) [#/Vol] 0.03 10*3/uL Normal <0.11 [facility] Comment on above: Order Comment: Speci men Type: BLOOD SPECIMEN Ordering Facility: [facility] Address: [address] [place] [address] Performed By: #### 5 7021-8 #### [facility] CLIA [id number] [address] [place] [address] [place] Basophils (Bld) [#/Vol] 0.03 10*3/uL <0.11 k/uL [facility] Basophils/100 WBC (Bld) 0.3 % Normal [facility] Comment on above: Order Comment: Speci men Type: BLOOD SPECIMEN Ordering Facility: [facility] Address: [address] [place] [address] Performed By: #### 5 7021-8 #### [facility] CLIA [id number] [address] [place] [address] [place] Basophils/100 WBC (Bld) 0.3 % [facility] Differential cell count method Nom (Bld) Auto Normal [facility] Comment on above: Order Comment: Speci men Type: BLOOD SPECIMEN Ordering Facility: [facility] Address: [address] [place] [address] Performed By: #### 5 7021-8 #### [facility] CLIA [id number] [address] [place] [address] [place] Differential cell count method Nom (Bld) Auto [facility] Eosinophils (Bld) [#/Vol] 0.12 10*3/uL Normal <0.46 [facility] Comment on above: Order Comment: Speci men Type: BLOOD SPECIMEN Ordering Facility: [facility] Address: [address] [place] [address] Performed By: #### 5 7021-8 #### [facility] CLIA [id number] [address] [place] [address] [place] Eosinophils (Bld) [#/Vol] 0.12 10*3/uL <0.46 k/uL [facility] Eosinophils/100 WBC (Bld) 1.2 % Normal [facility] Comment on above: Order Comment: Speci men Type: BLOOD SPECIMEN Ordering Facility: [facility] Address: [address] [place] [address] Performed By: #### 5 7021-8 #### [facility] CLIA [id number] [address] [place] [address] [place] Eosinophils/100 WBC (Bld) 1.2 % [facility] Erythrocyte distribution width (RBC) [Ratio] 12.7 % Normal 11.5-15.0 [facility] Comment on above: Order Comment: Speci men Type: BLOOD SPECIMEN Ordering Facility: [facility] Address: [address] [place] [address] Performed By: #### 5 7021-8 #### [facility] CLIA [id number] [address] [place] [address] [place] Erythrocyte distribution width (RBC) [Ratio] 12.7 % 11.5 - 15.0 % [facility] Hematocrit (Bld) [Volume fraction] 44.5 % Normal 36.0-46.0 [facility] Comment on above: Order Comment: Speci men Type: BLOOD SPECIMEN Ordering Facility: [facility] Address: [address] [place] [address] Performed By: #### 5 7021-8 #### [facility] CLIA [id number] [address] [place] [address] [place] Hematocrit (Bld) [Volume fraction] 44.5 % 36.0 - 46.0 % [facility] Hemoglobin (Bld) [Mass/Vol] 14.4 g/dL Normal 11.5-15.5 [facility] Comment on above: Order Comment: Speci men Type: BLOOD SPECIMEN Ordering Facility: [facility] Address: [address] [place] [address] Performed By: #### 5 7021-8 #### [facility] CLIA [id number] [address] [place] [address] [place] Hemoglobin (Bld) [Mass/Vol] 14.4 g/dL 11.5 - 15.5 g/dL [facility] Immature granulocytes (Bld) [#/Vol] 0.03 10*3/uL Normal <0.10 [facility] Comment on above: Order Comment: Speci men Type: BLOOD SPECIMEN Ordering Facility: [facility] Address: [address] [place] [address] Performed By: #### 5 7021-8 #### [facility] CLIA [id number] [address] [place] [address] [place] Immature granulocytes (Bld) [#/Vol] 0.03 10*3/uL <0.10 k/uL [facility] Immature granulocytes/100 WBC (Bld) 0.3 % Normal [facility] Comment on above: Order Comment: Speci men Type: BLOOD SPECIMEN Ordering Facility: [facility] Address: [address] [place] [address] Performed By: #### 5 7021-8 #### [facility] CLIA [id number] [address] [place] [address] [place] Immature granulocytes/100 WBC (Bld) 0.3 % [facility] Lymphocytes (Bld) [#/Vol] 1.93 10*3/uL Normal 1.00-4.00 [facility] Comment on above: Order Comment: Speci men Type: BLOOD SPECIMEN Ordering Facility: [facility] Address: [address] [place] [address] Performed By: #### 5 7021-8 #### [facility] CLIA [id number] [address] [place] [address] [place] Lymphocytes (Bld) [#/Vol] 1.93 10*3/uL 1.00 - 4.00 k/uL [facility] Lymphocytes/100 WBC (Bld) 19.7 % Normal [facility] Comment on above: Order Comment: Speci men Type: BLOOD SPECIMEN Ordering Facility: [facility] Address: [address] [place] [address] Performed By: #### 5 7021-8 #### [facility] CLIA [id number] [address] [place] [address] [place] Lymphocytes/100 WBC (Bld) 19.7 % [facility] MCH (RBC) [Entitic mass] 30.3 pg Normal 26.0-34.0 [facility] Comment on above: Order Comment: Speci men Type: BLOOD SPECIMEN Ordering Facility: [facility] Address: [address] [place] [address] Performed By: #### 5 7021-8 #### [facility] CLIA [id number] [address] [place] [address] [place] MCH (RBC) [Entitic mass] 30.3 pg 26.0 - 34.0 pg [facility] MCHC (RBC) [Mass/Vol] 32.4 g/dL Normal 30.5-36.0 [facility] Comment on above: Order Comment: Speci men Type: BLOOD SPECIMEN Ordering Facility: [facility] Address: [address] [place] [address] [place] [address] Performed By: #### 5 7021-8 #### [facility] CLIA [id number] [address] [place] [address] [place] MCHC (RBC) [Mass/Vol] 32.4 g/dL 30.5 - 36.0 g/dL [facility] MCV (RBC) [Entitic vol] 93.5 fL Normal 80.0-100.0 [facility] Comment on above: Order Comment: Speci men Type: BLOOD SPECIMEN Ordering Facility: [facility] Address: [address] [place] [address] Performed By: #### 5 7021-8 #### [facility] CLIA [id number] [address] [place] [address] [place] MCV (RBC) [Entitic vol] 93.5 fL 80.0 - 100.0 fL [facility] Monocytes (Bld) [#/Vol] 0.78 10*3/uL Normal <0.87 [facility] Comment on above: Order Comment: Speci men Type: BLOOD SPECIMEN Ordering Facility: [facility] Address: [address] [place] [address] Performed By: #### 5 7021-8 #### [facility] CLIA [id number] [address] [place] [address] [place] Monocytes (Bld) [#/Vol] 0.78 10*3/uL <0.87 k/uL [facility] Monocytes/100 WBC (Bld) 7.9 % Normal [facility] Comment on above: Order Comment: Speci men Type: BLOOD SPECIMEN Ordering Facility: [facility] Address: [address] [place] [address] Performed By: #### 5 7021-8 #### [facility] CLIA [id number] [address] [place] [address] [place] Monocytes/100 WBC (Bld) 7.9 % [facility] Neutrophils (Bld) [#/Vol] 6.93 10*3/uL Normal 1.45-7.50 [facility] Comment on above: Order Comment: Speci men Type: BLOOD SPECIMEN Ordering Facility: [facility] Address: [address] [place] [address] Performed By: #### 5 7021-8 #### [facility] CLIA [id number] [address] [place] [address] [place] Neutrophils (Bld) [#/Vol] 6.93 10*3/uL 1.45 - 7.50 k/uL [facility] Neutrophils/100 WBC (Bld) 70.6 % Normal [facility] Comment on above: Order Comment: Speci men Type: BLOOD SPECIMEN Ordering Facility: [facility] Address: [address] [place] [address] Performed By: #### 5 7021-8 #### [facility] CLIA [id number] [address] [place] [address] [place] Neutrophils/100 WBC (Bld) 70.6 % [facility] Nucleated RBC (Bld) [#/Vol] 10*3/uL Normal <0.01 [facility] Comment on above: Order Comment: Speci men Type: BLOOD SPECIMEN Ordering Facility: [facility] Address: [address] [place] [address] Performed By: #### 5 7021-8 #### [facility] CLIA [id number] [address] [place] [address] [place] Nucleated RBC (Bld) [#/Vol] <0.01 k/uL [facility] Nucleated RBC/100 WBC (Bld) [Ratio] 0.0 /100 WBC Normal [facility] Comment on above: Order Comment: Speci men Type: BLOOD SPECIMEN Ordering Facility: [facility] Address: [address] [place] [address] Performed By: #### 5 7021-8 #### [facility] CLIA [id number] [address] [id number] [address] [place] Nucleated RBC/100 WBC (Bld) [Ratio] 0.0 /100 WBC [facility] Platelet mean volume (Bld) [Entitic vol] 13.2 fL High 9.0-12.7 [facility] Comment on above: Order Comment: Shani kay Type: BLOOD SPECIMEN Ordering Facility: [facility] Address: [address] [place] [address] Performed By: #### 5 7021-8 #### [facility] CLIA [id number] [address] [place] [address] [place] Platelet mean volume (Bld) [Entitic vol] 13.2 fL High 9.0 - 12.7 fL [facility] Platelets (Bld) [#/Vol] 245 10*3/uL Normal 150-400 [facility] Comment on above: Order Comment: Shani kay Type: BLOOD SPECIMEN Ordering Facility: [facility] Address: [address] [place] [address] Result Comment: Resu lts checked and verified.No clot detected. Performed By: #### 5 7021-8 #### [facility] CLIA [id number] [address] [place] [address] [place] Platelets (Bld) [#/Vol] 245 10*3/uL 150 - 400 k/uL [facility] RBC (Bld) [#/Vol] 4.76 10*6/uL Normal 3.90-5.20 [facility] Comment on above: Order Comment: Angiei rahul Type: BLOOD SPECIMEN Ordering Facility: [facility] Address: [address] [place] [address] Performed By: #### 5 7021-8 #### [facility] CLIA [id number] [facility] [place] [address] [place] RBC (Bld) [#/Vol] 4.76 10*6/uL 3.90 - 5.2 0 m/uL [facility] WBC (Bld) [#/Vol] 9.82 10*3/uL Normal 3.70-11.00 [facility] Comment on above: Order Comment: Speci men Type: BLOOD SPECIMEN Ordering Facility: [facility] Address: [address] [place] [address] Performed By: #### 5 7021-8 #### [facility] CLIA [id number] [address] [facility] [place] [id number] [address] [place] WBC (Bld) [#/Vol] 9.82 10*3/uL 3.70 - 11. 00 k/uL [facility] CNOVon 02-17-2023 CNOV Office Visit (DORIE ) DENISHA VELASCO ([id number]) 1985 F Date Time Provider Department 02/17/23 9:00 AM ALBERTO MARCUS During your visit today, we recorded the following information about you: Pulse Blood pressure Weight 96/minute 116/82 126.6 kg Alberto Marcus MD 02/17/2023 10:02 AM Signed [facility] Date of Service: 02/17/2023 Patient: Denisha Velasco Medical Record: [id number] Last Rheumatology visit: None at [facility] History of Present Illness Denisha Velasco [...] other than (more content not included)... Normal [facility] VITAMIN D 25 HYDROXYon 02-17 25-hydroxyvitamin D3 [Mass/Vol] 14.6 ng/mL Low 31.0 - 80.0 ng/mL [facility] Vit B12 SerPl-mCncon 023 Cobalamin (Vitamin B12) [Mass/Vol] 347 pg/mL Normal 232-1245 [facility] Comment on above: Order Comment: Speci men Type: BLOOD SPECIMEN Ordering Facility: [facility] Address: [address] [place] [address] Performed By: #### 2 132-9 #### [facility] CLIA [id number] [facility] [place] [address] [place] SARS-CoV2 IgMon 07-07-2022 Comment Notes Normal [facility] Comment on above: Result Comment: Nega tive results to antibodies against SARS-CoV-2 are generally indicative of non-exposure to virus and lack of longevity of antibody response. Performed By: #### C VDABM #### [facility] [address] [place] [address] Dr. Karey Ordoñez Disclaimer Notes [facility] Comment on above: Result Comment: This is a lab developed test. This test has been validated in accordance with formerly [facility] guidelines and FDA guidance document (Policy for [...] due to past or present infection with voo-DICP-PrS-2 coronavirus strains, such as coronavirus HKU1, NL63, OC43, or 229E. Performed By: #### C VDABM #### [facility] [address] [place] [address] Dr. Karey Ordoñez Electronically Signed By Comment Normal [facility] Comment on above: Result Comment: Fernando Scales Performed By: #### C VDABM #### [facility] [address] [place] [address] Dr. Karey Ordoñez Methodology Comment Normal [facility] Comment on above: Result Comment: Chem iluminescence Performed By: #### C VDABM #### [facility] [address] [place] [address] Dr. Karey Ordoñez References Notes [facility] Comment on above: Result Comment: Sheldon Godinez, [...] application of serological tests in clinical practice. 10.1101/[id number]. Performed By: #### C VDABM #### [facility] [address] [place] [address] Dr. Karey Ordoñez Result Negative Normal [facility] Comment on above: Performed By: #### C VDABM #### [facility] [address] [place] [address] Dr. Karey Ordoñez Value 0.03 COI Normal [facility] Comment on above: Result Comment: <0.8 : Negative 0.8-<1.0: Indeterminate >=1.0: Positive Performed By: #### C VDABM #### [facility] [address] [place] [address] Dr. Karey Ordoñez SARS-CoV2 IgGon 07-04-2022 SARS-CoV-2 (COVID-19) IgG IA.rapid Ql (S/P/Bld) >800.0 Normal Neg <13.0 [facility] Comment on above: Performed By: #### C VDIGG #### [facility] [address] [place] [address] Dr. Karey Ordoñez SARS-CoV-2 (COVID-19) RNA RUBY+probe Ql (Unsp spec) Positive [facility] Comment on above: Result Comment: Anti bodies against the SARS-CoV-2 spike protein, including the receptor binding domain (RBD) were detected. It is not yet known what level of antibody to SARS-CoV-2 spike protein correlates to immunity against developing symptomatic SARS-CoV-2 disease. This assay was performed using [employer](R) SARS-CoV-2 Trimeric S IgG assay. Performed By: #### C VDIGG #### [facility] [address] [place] [address] Dr. Karey Ordoñez Office Visit (Cardiology)on 06-30-2022 Follow-up visit Diagnoses/Problems Assessed Benign essential hypertension (401.1) (I10) Vertigo (780.4) (R42) Morbid obesity with BMI of 45.0-49.9, adult (278.01,V85.42) (E66.01,Z68.42) Never smoker Orders Morbid obesity with BMI of 45.0-49.9, adult Healthy Weight Tips; Status:Complete - Retrospective Authorization; Done: [id number] Some eating tips that can help you lose weight.; Status:Complete - Retrospective Authorization; Done: [id number] SocHx: Never smoker Tobacco Use Screening; Status:Complete; Done: [id number] Patient Instructions Please bring all medicines, vitamins, [...] negative for complaint. Vitals Vital Signs Recorded: [id number] 09:45AM Heart Rate74, R Radial Hpzqwpcq831, RUE, Sitting Wreacqdme41, RUE, Sitting Height5 ft 3 in Eprpvb086 lb BMI Haimenxoyo13.42 kg/m2 BSA Calculated2.23 Tobacco Useb) No PHQ-2 [...] . Abdomen: (more content not included)... Normal [facility] Tobacco Screening.on 023 Adult depression screening assessment No [facility] [address] DO Work Phone: Fall risk assessment a) No falls within the last year [facility] [address] DO Work Phone: Tobacco use status CPHS b) No [facility] [address] DO Work Phone: FREE T4on 05-12-2022 Free T4 [Mass/Vol] 1.11 ng/dL Normal 0.76-1.46 [facility] Comment on above: Performed By: #### F T4 #### [facility] [address] [place] [address] Dr. Karey Ordoñez GLYCOHEMOGLOBIN A1Con 2022 ADA RECOMMENDATION SEE BELOW Normal [facility] Comment on above: Result Comment: ADA RECOMMENDED LIMIT 4.0 - 6.0 ADA THERAPEUTIC TARGET < 7.0 ACTION SUGGESTED > 7.0 Performed By: #### F T4 #### [facility] [address] [place] [address] Dr. Karey Ordoñez Glucose [Mass/Vol] 114 mg/dL Normal [facility] Comment on above: Performed By: #### F T4 #### [facility] [address] [place] [address] Dr. Karey Ordoñez HbA1c (Bld) [Mass fraction] 5.6 % Normal 4.5-6.2 [facility] Comment on above: Performed By: #### F T4 #### [facility] [address] [place] [address] Dr. Karey Ordoñez PROF CHEM 8 (BAS METB)on Anion gap [Moles/Vol] 13.5 mmol/L Normal [facility] Comment on above: Performed By: #### T SH, BMP #### [facility] [address] [place] [address] Dr. Karey Ordoñez Calcium [Mass/Vol] 9.1 mg/dL Normal 8.5-10.1 [facility] Comment on above: Performed By: #### T SH, BMP #### [facility] [address] [place] [address] Dr. Karey Ordoñez Chloride [Moles/Vol] 103 mmol/L Normal 98-107 [facility] Comment on above: Performed By: #### T SH, BMP #### [facility] [address] [place] [address] Dr. Karey Ordoñez CO2 [Moles/Vol] 26.7 mmol/L Normal 21.0-32.0 [facility] Comment on above: Performed By: #### T SH, BMP #### [facility] [address] [place] [address] Dr. Karey Ordoñez Creatinine [Mass/Vol] 0.79 mg/dL Normal 0.55-1.02 [facility] Comment on above: Performed By: #### T SH, BMP #### [facility] [address] [place] [address] Dr. Karey Ordoñez EGFR-AF EMIRATI >60 Normal >=60 [facility] Comment on above: Performed By: #### T SH, BMP #### [facility] [address] [place] [address] Dr. Karey Ordoñez EGFR-NON AF EMIRATI >60 Normal >=60 [facility] Comment on above: Performed By: #### T SH, BMP #### [facility] [address] [place] [address] Dr. Karey Ordoñez Glucose [Mass/Vol] 94 mg/dL Normal 74-106 [facility] Comment on above: Performed By: #### T SH, BMP #### [facility] [address] [place] [address] Dr. Karey Ordoñez Potassium [Moles/Vol] 4.2 mmol/L Normal 3.5-5.1 [facility] Comment on above: Performed By: #### T SH, BMP #### [facility] [address] [place] [address] Dr. Karey Ordoñez Sodium [Moles/Vol] 139 mmol/L Normal 136-145 [facility] Comment on above: Performed By: #### T SH, BMP #### [facility] [address] [place] [address] Dr. Karey Ordoñez Urea nitrogen [Mass/Vol] 12.0 mg/dL Normal 7.0-18.0 [facility] Comment on above: Performed By: #### T SH, BMP #### [facility] [address] [place] [address] Dr. Karey Ordoñez Urea nitrogen/Creatinine [Mass ratio] 15.2 mg/mg Normal [facility] Comment on above: Performed By: #### T SH, BMP #### [facility] [address] [place] [address] Dr. Karey Ordoñez TSHon 05-12-2022 TSH 1.098 uIU/mL Normal 0.358-3.740 [facility] Comment on above: Performed By: #### T SH, BMP #### [facility] [address] [place] [address] Dr. Karey Ordoñez FREE T3on 02-06-2022 FREE T3 1.79 pg/mlL Critically low 2.18-3.[address] [facility] Comment on above: Performed By: #### F T3, TSH #### [facility] [address] [place] [address] Dr. Karey Ordoñez FREE T4on 02-06-2022 Free T4 [Mass/Vol] 1.12 ng/dL Normal 0.76-1.46 [facility] Comment on above: Performed By: #### F T4 #### [facility] [address] [place] [address] Dr. Karey Ordoñez TSHon 02-06-2022 TSH 2.571 uIU/mL Normal 0.358-3.740 [facility] Comment on above: Performed By: #### F T3, TSH #### [facility] [address] [address] [address] Karey Ordoñez MRI BRAIN WO CONon [...] VERO ATKINS Date: 2022-01-22 13:49 Normal [facility] CT CSPINE WO CONon 2 CT [...] by: LALI PATEL Date: 2022-01-18 10:22 Normal [facility] US CAROTID ART BILon 022 US [...] by: ZINA GREGORY Date: 2022-01-17 18:[address] [facility] [address] HEAD WO CONon 01-15-2022 CT [...] by: VERO ATKINS Date: 2022-01-15 11:07 Normal [facility] MRI KNEE RT WO CONon 022 [...] by: VERO ATKINS Date: 2021-12-18 15:05 Normal [facility] XR KNEE RT 3Von 12-10-2021 XR [...] by: VERO WILSON Date: 2021-12-10 06:40 Normal [facility] LIVER PROFILEon 10-29-2021 Albumin [Mass/Vol] 3.7 g/dL Normal 3.4-5.0 [facility] Comment on above: Performed By: #### F T4 #### [facility] [address] [address] [address] Karey Ordoñez Albumin/Globulin [Mass ratio] 0.9 {ratio} Normal [facility] Comment on above: Performed By: #### F T4 #### [facility] [address], [place] [address] Dr. Karey Ordoñez ALP [Catalytic activity/Vol] 111 U/L Normal 46-116 [facility] Comment on above: Performed By: #### F T4 #### [facility] [address] [address] [address] Karey Ordoñez ALT [Catalytic activity/Vol] 22 U/L Normal 14-59 [facility] Comment on above: Performed By: #### F T4 #### [facility] [address] [address] [address] Karey Ordoñez AST [Catalytic activity/Vol] 12 U/L Critically low 15-37 [facility] Comment on above: Performed By: #### F T4 #### [facility] [address] [address] [address] Karey Ordoñez BILI, CONJUGATED 0.1 mg/dL Normal 0.0-0.2 [facility] Comment on above: Performed By: #### F T4 #### [facility] [address] [place] [address] Dr. Karey Ordoñez Bilirubin [Mass/Vol] 0.5 mg/dL Normal 0.2-1.0 [facility] Comment on above: Performed By: #### F T4 #### [facility] [address] [place] [address] Dr. Karey Ordoñez Globulin (S) [Mass/Vol] 4.1 g/dL Normal [facility] Comment on above: Performed By: #### F T4 #### [facility] [address] [place] [address] Dr. Karey Ordoñez Protein [Mass/Vol] 7.8 g/dL Normal 6.4-8.2 [facility] Comment on above: Performed By: #### F T4 #### [facility] [address] [place] [address] Dr. Karey Ordoñez INSULINon 10-02-2021 Insulin 10.5 uIU/mL Normal 2.6-24.9 [facility] Comment on above: Performed By: #### I NSULIN #### [facility] [address] [place] [address] Dr. Karey Ordoñez CBC AUTO DIFFon 10-01-2021 BASO # 0.0 103/ul Normal 0.0-0.1 [facility] Comment on above: Performed By: #### F T4 #### [facility] [address] [place] [address] Dr. Karey Ordoñez Basophils/100 WBC (Bld) 0.4 % Normal 0.2-2.0 [facility] Comment on above: Performed By: #### F T4 #### [facility] [address] [place] [address] Dr. Karey Ordoñez EO # 0.1 103/ul Normal 0.0-0.7 [facility] Comment on above: Performed By: #### F T4 #### [facility] [address] [place] [address] Dr. Karey Ordoñez Eosinophils/100 WBC (Bld) 1.1 % Normal 0.9-7.0 [facility] Comment on above: Performed By: #### F T4 #### [facility] [address] [place] [address] Dr. Karey Ordoñez Erythrocyte distribution width (RBC) [Ratio] 12.9 % Normal 11.0-15.0 [facility] Comment on above: Performed By: #### F T4 #### [facility] [address] [place] [address] Dr. Karey Ordoñez Hematocrit (Bld) [Volume fraction] 41.5 % Normal 36.0-48.0 [facility] Comment on above: Performed By: #### F T4 #### [facility] [address] [place] [address] Dr. Karey Ordoñez Hemoglobin (Bld) [Mass/Vol] 13.0 g/dL Normal 12.0-16.0 [facility] Comment on above: Performed By: #### F T4 #### [facility] [address] [place] [address] Dr. Karey Ordoñez IG # 0.04 10e3/ul Critically high 0.00-0.03 [facility] Comment on above: Performed By: #### F T4 #### [facility] [address] [place] [address] Dr. Karey Ordoñez IG % 0.5 % Normal 0.0-0.5 [facility] Comment on above: Performed By: #### F T4 #### [facility] [address] [place] [address] Dr. Karey Ordoñez LYMPH # 1.9 103/ul Normal 1.2-3.8 [facility] Comment on above: Performed By: #### F T4 #### [facility] [address] [place] [address] Dr. Karey Ordoñez Lymphocytes/100 WBC (Bld) 22.7 % Normal 20.5-60.0 [facility] Comment on above: Performed By: #### F T4 #### [facility] [address] [place] [address] Dr. Karey Ordoñez MANUAL DIFF REQ NO Normal [facility] Comment on above: Performed By: #### F T4 #### [facility] [address] [place] [address] Dr. Karey Ordoñez MCH (RBC) [Entitic mass] 28.9 pg Normal 26.7-34.0 [facility] Comment on above: Performed By: #### F T4 #### [facility] [address] [place] [address] Dr. Karey Ordoñez MCHC (RBC) [Mass/Vol] 31.3 g/dL Normal 29.9-35.2 [facility] Comment on above: Performed By: #### F T4 #### [facility] [address] [place] [address] Dr. Karey Ordoñez MCV (RBC) [Entitic vol] 92.2 fL Normal 81.0-99.0 [facility] Comment on above: Performed By: #### F T4 #### [facility] [address] [place] [address] Dr. Karey Ordoñez MONO # 0.6 103/ul Normal 0.3-0.8 [facility] Comment on above: Performed By: #### F T4 #### [facility] [address] [place] [address] Dr. Karey Ordoñez Monocytes/100 WBC (Bld) 6.8 % Normal 1.7-12.0 [facility] Comment on above: Performed By: #### F T4 #### [facility] [address] [place] [address] Dr. Karey Ordoñez NEUT # 5.8 103/ul Normal 1.4-6.5 [facility] Comment on above: Performed By: #### F T4 #### [facility] [address] [place] [address] Dr. Karey Ordoñez Neutrophils/100 WBC (Bld) 68.5 % Normal 43.0-75.0 [facility] Comment on above: Performed By: #### F T4 #### [facility] [address] [place] [address] Dr. Karey Ordoñez Platelet mean volume (Bld) [Entitic vol] 12.8 fL Normal 9.5-13.5 [facility] Comment on above: Performed By: #### F T4 #### [facility] [address] [place] [address] Dr. Karey Ordoñez PLT 231 103/ul Normal 150-450 [facility] Comment on above: Performed By: #### F T4 #### [facility] [address] [place] [address] Dr. Karey Ordoñez RBC 4.50 106/ul Normal 4.20-5.40 [facility] Comment on above: Performed By: #### F T4 #### [facility] [address] [place] [address] Dr. Karey Ordoñez WBC 8.5 103/ul Normal 4.0-11.0 [facility] Comment on above: Performed By: #### F T4 #### [facility] [address] [place] [address] Dr. Karey Ordoñez FREE T4on 10-01-2021 Free T4 [Mass/Vol] 1.27 ng/dL Normal 0.76-1.46 [facility] Comment on above: Performed By: #### F T4 #### [facility] [address] [place] [address] Dr. Karey Ordoñez GLYCOHEMOGLOBIN A1Con 2021 ADA RECOMMENDATION SEE BELOW Normal [facility] Comment on above: Result Comment: ADA RECOMMENDED LIMIT 4.0 - 6.0 ADA THERAPEUTIC TARGET < 7.0 ACTION SUGGESTED > 7.0 Performed By: #### A 1C #### [facility] [address], [place] [address] Dr. Karey Ordoñez Glucose [Mass/Vol] 123 mg/dL Normal [facility] Comment on above: Performed By: #### A 1C #### [facility] [address] [id number] [address] Karey Ordoñez HbA1c (Bld) [Mass fraction] 5.9 % Normal 4.5-6.2 [facility] Comment on above: Performed By: #### A 1C #### [facility] [address] [address] [address] Karey Ordoñez LIPID PROFILEon 10-01-2021 CHOL-HDL RATIO NORM SEE BELOW Normal [facility] Comment on above: Result Comment: 3.3 - 4.4 LOW RISK 4.4 - 7.1 AVERAGE RISK 7.1 - 11.0 MODERATE RISK >11.0 HIGH RISK Performed By: #### F T4 #### [facility] [address] [place] [address] Dr. Karey Ordoñez Cholesterol [Mass/Vol] 182 mg/dL Normal <=200 [facility] Comment on above: Performed By: #### F T4 #### [facility] [address] [address] [address] Karey Ordoñez Cholesterol in HDL [Mass/Vol] 52 mg/dL Normal 40-60 [facility] Comment on above: Performed By: #### F T4 #### [facility] [address] [address] [address] Karey Ordoñez Cholesterol in LDL [Mass/Vol] 115.8 mg/dL Normal [facility] Comment on above: Performed By: #### F T4 #### [facility] [address] [address] [address] Karey Ordoñez Cholesterol.total/Ch olesterol in HDL [Mass ratio] 3.5 {ratio} Normal [facility] Comment on above: Performed By: #### F T4 #### [facility] [address] [address] [address] Karey Ordoñez HDL NORMAL > or = 60 mg/dl - LO W CARDIOVASCULAR RISK <40 mg/dl - HIGH CARDIOVASCULAR RISK Normal [facility] Comment on above: Performed By: #### F T4 #### [facility] [address] [address] [address] Karey Ordoñez LDL CALC NORMAL SEE BELOW Normal [facility] Comment on above: Result Comment: <100 mg/dl OPTIMAL 100 - 129 mg/dl NEAR OR ABOVE OPTIMAL 130 - 159 mg/dl BORDERLINE HIGH 160 - 189 mg/dl HIGH >190 mg/dl VERY HIGH Performed By: #### F T4 #### [facility] [address] [address] [address] Karey Ordoñez Triglyceride [Mass/Vol] 71 mg/dL Normal <=150 [facility] Comment on above: Performed By: #### F T4 #### [facility] [address] [address] [address] Karey Ordoñez VLDL CALC 14.2 mg/dL Normal [facility] Comment on above: Performed By: #### F T4 #### [facility] [address] [place] [address] Dr. Karey Ordoñez PROF 14(COMP METB)on 022 Albumin [Mass/Vol] 3.9 g/dL Normal 3.4-5.0 [facility] Comment on above: Performed By: #### F T4 #### [facility] [address] [place] [address] Dr. Karey Ordoñez Albumin/Globulin [Mass ratio] 0.9 {ratio} Normal [facility] Comment on above: Performed By: #### F T4 #### [facility] [address] [place] [address] Dr. Karey Ordoñez ALP [Catalytic activity/Vol] 117 U/L Critically high 46-116 [facility] Comment on above: Performed By: #### F T4 #### [facility] [address] [place] [address] Dr. Karey Ordoñez ALT [Catalytic activity/Vol] 25 U/L Normal 14-59 [facility] Comment on above: Performed By: #### F T4 #### [facility] [address] [place] [address] Dr. Karey Ordoñez Anion gap [Moles/Vol] 14.1 mmol/L Normal [facility] Comment on above: Performed By: #### F T4 #### [facility] [address] [address] [address] Karey Ordoñez AST [Catalytic activity/Vol] 14 U/L Critically low 15-37 [facility] Comment on above: Performed By: #### F T4 #### [facility] [address] [address] [address] Karey Ordoñez Bilirubin [Mass/Vol] 0.5 mg/dL Normal 0.2-1.0 [facility] Comment on above: Performed By: #### F T4 #### [facility] [address] [address] [address] Karey Ordoñez Calcium [Mass/Vol] 9.1 mg/dL Normal 8.5-10.1 [facility] Comment on above: Performed By: #### F T4 #### [facility] [address] [address] [address] Karey Ordoñez Chloride [Moles/Vol] 102 mmol/L Normal 98-107 [facility] Comment on above: Performed By: #### F T4 #### [facility] [address] [address] [address] Karey Ordoñez CO2 [Moles/Vol] 27.7 mmol/L Normal 21.0-32.0 [facility] Comment on above: Performed By: #### F T4 #### [facility] [address] [address] [address] Karey Ordoñez Creatinine [Mass/Vol] 0.76 mg/dL Normal 0.55-1.02 [facility] Comment on above: Performed By: #### F T4 #### [facility] [address] [address] [address] Karey Ordoñez EGFR-AF EMIRATI >60 Normal >=60 [facility] Comment on above: Performed By: #### F T4 #### [facility] [address] [address] [address] Karey Ordoñez EGFR-NON AF EMIRATI >60 Normal >=60 [facility] Comment on above: Performed By: #### F T4 #### [facility] [address] [place] [address] Dr. Karey Ordoñez Globulin (S) [Mass/Vol] 4.5 g/dL Normal [facility] Comment on above: Performed By: #### F T4 #### [facility] [address] [place] [place] [address] Dr. Karey Ordoñez Glucose [Mass/Vol] 101 mg/dL Normal 74-106 [facility] Comment on above: Performed By: #### F T4 #### [facility] [address] [place] [address] Dr. Karey Ordoñez Potassium [Moles/Vol] 3.8 mmol/L Normal 3.5-5.1 [facility] Comment on above: Performed By: #### F T4 #### [facility] [address] [place] [address] Dr. Karey Ordoñez Protein [Mass/Vol] 8.4 g/dL Critically high 6.4-8.2 [facility] Comment on above: Performed By: #### F T4 #### [facility] [address] [place] [address] Dr. Karey Ordoñez Sodium [Moles/Vol] 140 mmol/L Normal 136-145 [facility] Comment on above: Performed By: #### F T4 #### [facility] [address] [place] [address] Dr. Karey Ordoñez Urea nitrogen [Mass/Vol] 10.0 mg/dL Normal 7.0-18.0 [facility] Comment on above: Performed By: #### F T4 #### [facility] [address] [place] [address] Dr. Karey Ordoñez Urea nitrogen/Creatinine [Mass ratio] 13.2 mg/mg Normal [facility] Comment on above: Performed By: #### F T4 #### [facility] [address] [place] [address] Dr. Karey Ordoñez TSHon 10-01-2021 TSH 2.445 uIU/mL Normal 0.358-3.740 [facility] Comment on above: Performed By: #### F T4 #### [facility] [address] [address] [address] Karey Ordoñez TSH RANGE SEE BELOW Normal [facility] Comment on above: Result Comment: <0.3 4 UIU/ml HYPERTHYROID 0.34-5.60 UIU/ml EUTHYROID >5.60 UIU/ml HYPOTHYROID Performed By: #### F T4 #### [facility] [address] [address] [address] Karey Ordoñez Social History Date Type Detail Facility Start: 04-14-2023 Alcohol intake Ex-drinker (finding) [facility] Start: 02-13-2023 End: 02-17-2023 No alcohol use No alcohol use [facility] Comment on above: 1-2 cups coffee brian y; Start: 07-29-2021 End: 02-17-2023 Tobacco smoking status NHIS Never smoked tobacco [facility] Start: 07-29-2021 End: 02-17-2023 Tobacco use and exposure Smokeless tobacco non-user [facility] Start: 02-13-2023 End: 02-17-2023 Tobacco use panel [facility] Start: 1985 Sex Assigned At Not on file C [facility] Adult Depression Screening Assessment 0 [facility] Vital Signs Date Time Vital Sign Value Performing Clinician Faci [facility] 02-17-2023 08:48-0400 Body weight 126.55 kg Alberto Marcus MD Work Phone: [facility] 02-17-2023 08:48-0400 Diastolic blood pressure 82 mm[Hg] Alberto Marcus MD Work Phone: [facility] 02-17-2023 08:48-0400 Heart rate 96 /min Alberto Marcus MD Work Phone: [facility] 02-17-2023 08:48-0400 SaO2% (BldA) [Mass fraction] 98 % Alberto Marcus MD Work Phone: [facility] 02-17-2023 08:48-0400 Systolic blood pressure 116 mm[Hg] Alberto Marcus MD Work Phone: [facility] 06-30-2022 09:45-0500 Body height 160.02 cm Allison Bullock Aichholz Work Phone: [facility] [address] DO Work Phone: 06-30-2022 09:45-0500 Body mass index (BMI) [Ratio] 49.42 kg/m2 Allison Bullock Aichholz Work Phone: [facility] [address] DO Work Phone: 06-30-2022 09:45-0500 Body surface area Derived from formula 2.23 m2 Allison Bullock Aichholz Work Phone: [facility] [employer] [address] DO Work Phone: 06-30-2022 09:45-0500 Body weight 126.55 kg Allison Bullock Aichholz Work Phone: [facility] [employer] [address] DO Work Phone: 06-30-2022 09:45-0500 Diastolic blood pressure 80 mm[Hg] Allison Bullock Aichholz Work Phone: [facility] [employer] [address] DO Work Phone: 06-30-2022 09:45-0500 Heart rate 74 /min Allison Bullock Aichholz Work Phone: [facility] [employer] [address] DO Work Phone: 06-30-2022 09:45-0500 Systolic blood pressure 128 mm[Hg] Allison Bullock Aichholz Work Phone: [facility] [employer] [address] DO Work Phone: Progress note 08-31-2023 Note Date & Type Note Facility 08-31-2023 Note HNO ID: [id number] Author: DINO SELLERS LGC Service: ? Author [...] to her home address. Dino Sellers MS, [facility] Licensed Genetic Counselor [facility] History of Present illness Narrative 08-31-2023 Dino Sellers LGC - 08/31/2023 9:45 AM EDT Note Date & Type Note Facility 08-31-2023 History of Presen t illness Narrative Denisah's son ( ) is followed in Genetics and will be undergoing testing which includes parental samples for segregation analysis; a separate report will not be generated. Denisha has agreed to provide a sample for this testing and an order has been placed for a cheek swab kit to be sent to her home address. Dino Sellers MS, [facility] Licensed Genetic Counselor documented in this encounter [facility] Progress note 02-17-2023 Note Date & Type Note Facility 02-17-2023 Note HNO ID: [id number] Author: Alberto Marcus MD Service: ? Author Type: Physician Type: Progress Notes Filed: 02/17/2023 10:02 AM Note Text: Rheumatology Clinic Date of Service: 02/17/2023 Patient: Denisha Velasco Medical Record: [id number] Last Rheumatology visit: None at [facility] History of Present Illness Denisha Velasco [...] day a (more content not included)... [facility] Inst[facility] 02-17-2023 Patient Instructions Note Date & [...] and/or non-rheumatologic conditions. A meta-analysis from the [facility] in [place] suggested that concomitant fibromyalgia is common in patients with inflammatory arthritis, which can have a major impact on assessing disease severity and treatment decisions. The overall prevalence of fibromyalgia was 21% among patients with rheumatoid arthritis and 13% in ankylosing spondylitis, whereas the condition is reported in approximately 1% to 5% of the general population, according to Wyatt Luke, [facility], PhD, of the [facility] in [place], and colleagues. The cornerstones of therapy for [...] guidelines of fibromyalgia: (1) https://www.rheumatology.org/I-Am-A/Patient- Caregiver/Diseases-Conditions/Fibromyalgia (2) http://fibroguide.med.[facility]/ documented in this encounter [facility] History of Present illness Narrative 02-17-2023 Alberto Marcus MD - 02/17/2023 8:49 AM EDT Note Date & Type Note Facility 02-17-2023 History of Presen t illness Narrative Images from the original note were not included. Rheumatology Clinic Date of Service: 02/17/2023 Patient: Denisha Velasco Medical Record: [id number] Last Rheumatology visit: None at [facility] History of Present Illness Denisha Velasco [...] which included preparing to see the patient, [id number] patient care, completing clinical documentation, obtaining and/or reviewing separately obtained history, performing a medically appropriate examination, and counseling and educating the patient/family/caregiver. Alberto Marcus MD Rheumatology Date: February 17, 2023 Time: 8:50 AM documented in this encounter [facility] Evaluation note Note Date & Type Note Facility Evaluation note Diagnosis Fibromyalgia- Primary Mylagia and myositis, unspecified Sedimentation rate elevation Elevated sedimentation rate Fatigue, unspecified type Vitamin D deficiency Unspecified vitamin D deficiency documented in this encounter [facility] Evaluation note Note Date & Type Note Facility Evaluation note Diagnosis Elevated partial thromboplastin time (PTT)- Primary Abnormal coagulation profile documented in this encounter [facility] Evaluation note Note Date & Type Note Facility Evaluation note Diagnosis Family history of autism- Primary Family history of psychiatric condition documented in this encounter [facility] History of Present illness Narrative Note [...] of doing it at her young age. -[facility] [employer] [employer] DO Work Phone: Instructions Note Date & Type Note Facility Instructions Not on filedocumented in this en counter [facility] Summary Purpose Family History No Family [...] section and content) DATE CREATED AUTHOR 06/30/2022 [facility] DATE CREATED AUTHOR AUTHOR'S ORGANIZ ATION 07/01/2022 [facility] DATE CREATED AUTHOR AUTHOR'S ORGANIZ ATION 07/08/2022 [facility] DATE CREATED AUTHOR AUTHOR'S ORGANIZ ATION 08/01/2023 [facility] DATE CREATED AUTHOR AUTHOR'S ORGANIZ ATION 08/31/2023 [facility] DATE CREATED AUTHOR AUTHOR'S ORGANIZ ATION 09/09/2023 [facility] DATE CREATED AUTHOR AUTHOR'S ORGANIZ ATION 10/14/2023 [facility] EP[employer] Source Comments (unrecognize d section and content) In the event this informatio n is protected by the Federal Confidentiality of Alcohol and Drug Abuse Patient Records regulations: The Federal rules restrict any use of the information to criminally investigate or prosecute any alcohol or drug abuse patient.[facility] the event this information is protected by the Federal Confidentiality of Alcohol and Drug Abuse Patient Records regulations: The Federal rules restrict any use of the information to criminally investigate or prosecute any alcohol or drug abuse patient.[facility] Reason for Visit (unrecogniz ed section and content) Reason Comments Consult Reason Comments Genetics- parental testing Care Teams (unrecognized sec tion and content) Housekeeping Assistant Relationship Specialty Start Date End Date Allison Mendez, HR BUSINESS PARTNER CONSULTANT-REGISTERED NURSE NURSERY [address] [place] [address] PCP - General Nurse Practitioner 04/14/23 FOR [...] BE BASED ON THE PRIMARY CLINICAL RECORDS. [facility] [employer] [facility]. provides no warranty or guarantee of the accuracy or completeness of information in this document.
[2023-10-23 08:19] LABS: Creatinine Urine Random 135.08 mg/dL (20.00-300.00); Microalbum Creatinine Ratio Ur 9.6 mg/g (0.0-29.9); Microalbumin Urine Random <1.3 mg/dL (<=30.0)
[2023-10-23 08:34] LABS: Bilirubin Urine NEGATIVE (NEGATIVE); Blood Urine NEGATIVE (NEGATIVE); Clarity Urine CLEAR (CLEAR); Color Urine YELLOW (YELLOW); Glucose Urine UA NEGATIVE (NEGATIVE); Ketones Urine NEGATIVE (NEGATIVE); Leukocyte Esterase Urine NEGATIVE (NEGATIVE); Nitrite Urine NEGATIVE (NEGATIVE); Protein Urine NEGATIVE (NEG/TRACE); Specific Gravity Urine 1.015 (1.005-1.025)
[2023-10-23 08:44] LABS: Urine Microscopic Indicated NO
[2023-10-23 08:54] LABS: Estimated Average Glucose 111 mg/dL; Glycohemoglobin A1C 5.5 % (4.5-6.2)
[2023-10-23 09:35] LABS: Free T4 1.03 ng/dL (0.76-1.46)
[2023-10-23 09:39] LABS: Alanine Aminotransferase 17 U/L (14-59); Albumin Globulin Ratio 0.9; Albumin Level 3.9 g/dL (3.4-5.0); Alkaline Phosphatase 163 U/L (46-116); Anion Gap 16.3; Aspartate Amino Transferase 12 U/L (15-37); BUN Creatinine Ratio 15.6; Bilirubin Total 0.6 mg/dL (0.2-1.0); Calcium 9.2 mg/dL (8.5-10.1); Carbon Dioxide 26.9 mmol/L (21.0-32.0); Chloride 104 mmol/L (98-107); Chol HDL Ratio 2.6; Cholesterol 173 mg/dL (<=200); Estimated GFR (African America >60 (>=60); Estimated GFR (Non-African Ame >60 (>=60); Globulin 4.4 g/dL; Glucose 88 mg/dL (74-106); HDL Cholesterol 67 mg/dL (40-60); Potassium 4.2 mmol/L (3.5-5.1); Sodium 143 mmol/L (136-145); Thyroid Stimulating Hormone 2.408 uIU/mL (0.358-3.740); Total Protein 8.3 g/dL (6.4-8.2); Triglycerides 41 mg/dL (<=150); VLDL CHOLESTEROL 8.2 mg/dL
== END 2023-10-23 07:44 | disposition home or self-care (01) ==
LOC: LAB 07:45
PROVIDERS: PCP Nurse Practitioner; Visit Provider Nurse Practitioner
DX: E03.9 Hypothyroidism, unspecified (principal); E11.9 Type 2 diabetes mellitus without complications; I10 Essential (primary) hypertension; E66.01 Morbid (severe) obesity due to excess calories; Z68.42 Body mass index [BMI] 45.0-49.9, adult; E55.9 Vitamin D deficiency, unspecified
CPT/HCPCS: 36415; 80053; 80061; 81003; 82043; 82570; 83036; 84439; 84443

== ENCOUNTER 2023-11-02 09:33 | Day surgery (SDC) | payer OTHER, SELFPAY ==
[2023-11-02 10:09] VITALS: BP 139/93; PULSE 79; TEMP 36.4; O2SAT 99
[2023-11-02 11:19] VITALS: BP 147/66; PULSE 80; O2SAT 99
[2023-11-02] MEDS: BUPIVACAINE HCL 0.25% PF 25 MG/10 ML VIAL INJ (11:19)
[2023-11-02] MEDS: LIDOCAINE HCL 2% PF 100 MG/5 ML VIAL INJ (11:20)
--- NOTE | 2023-11-02 11:29 | W.PM.PROCNOT ---
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 An informed consent was obtained and placed on the chart.? The patient was brought to the medical procedure unit and placed in the prone position.? A timeout was completed verifying correct patient, procedure site, positioning, plan, and special equipment.? Using aseptic technique, the needle was placed at left L4. Under direct fluoroscopic visualization a Quincke-tipped spinal needle was advanced to the junction of the superior articulating process with the transverse process at the designated medial branch segment.? Preceded by negative aspiration, the above-mentioned injectate was placed in 1 mL aliquots.? The procedure was repeated at left L5, S1.? The needle was removed and insertion site was covered. The same procedure, at the same levels, was completed on the right side. The patient was taken to the postprocedural recovery area and monitored for an appropriate length of time before found suitable for discharge in the company of a responsible adult. Surgeon: Patrick Parks Pathology: none sent Condition: stable Disposition: no change
== END 2023-11-02 11:27 | disposition home or self-care (01) ==
PROVIDERS: PCP Nurse Practitioner; Visit Provider Anesthesiology
DX: M47.816 Spondylosis without myelopathy or radiculopathy, lumbar region (principal)
CPT/HCPCS: 64493; 64494; 82948; J0665

== ENCOUNTER 2023-11-05 14:39 | Outpatient (OUT) | payer OTHER, SELFPAY ==
--- NOTE | 2023-11-05 14:58 | P.CN_ITS ---
Consult Note: HPI Data of Consult Patient: known to practice within the last 3 years Consult date: 09/07/23 Requesting Physician: Kadi Amador NP Primary Care Provider: Allison Mendez NP Consult Narrative Reason for consult: midback, low back pain Narrative: 37yof who presents for evaluation. longstanding mid and low back history, primarily began after childbirth several years ago. imaging reviewed, which shows multilevel degeneration in facet in lower lumbar spine. has tried various medications, including muscle relaxers, NSAIDs, percocet, prednisone, all without last benefit. has completed physical therapy and continues in the provider directed home exercise course >6 weeks, which has not provided lasting benefit. otherwise denies adverse med side effects or loss of bowel or bladder control. Recently underwent bilateral L4-5 L5-S1 facet medial branch block #2 with >90% improvement in pain and functional ability for 3+ hours. cc:: CC: Kadi Amador NP Review of Systems ROS Status of ROS 10 or more systems reviewed and unremark able except as noted in history and below Musculoskeletal Reports: back pain PFSH PFSH Medical History (Updated 09/07/23 @ 15:19 by Brianna Epstein) Vertigo ?R42 - Dizziness and giddiness (ICD-10) Anxiety ?F41.9 - Anxiety disorder, unspecified (ICD-10) Diabetes ?E11.9 - Type 2 diabetes mellitus without complications (ICD-10) Sleep apnea ?G47.30 - Sleep apnea, unspecified (ICD-10) Asthma ?J45.909 - Unspecified asthma, uncomplicated (ICD-10) Irregular heart beat ?I49.9 - Cardiac arrhythmia, unspecified (ICD-10) Heart murmur ?R01.1 - Cardiac murmur, unspecified (ICD-10) High blood pressure ?I10 - Essential (primary) hypertension (ICD-10) Surgical History History of hysterectomy ?Z90.710 - Acquired absence of both cervix and uterus (ICD-10) History of section ?Z98.891 - History of uterine scar from previous surgery (ICD-10) History of arthroscopy of right knee ?Z98.890 - Other specified postprocedural states (ICD-10) Social History Smoking status: Never smoker Meds Home Medications and Allergies Home Medications ?Medication ?Instructions ?Recorded ?Confirmed ?Type aspirin 81 mg tablet,delayed 81 mg PO DAILY 03/31/23 11/02/23 History release (Adult Low Dose Aspirin) atorvastatin 10 mg tablet 10 mg PO DAILY 03/31/23 11/02/23 History buspirone 10 mg tablet 10 mg PO BID 03/31/23 11/02/23 History levothyroxine 137 mcg tablet 150 mcg PO DAILY 03/31/23 11/02/23 History losartan 50 mg tablet 50 mg PO DAILY 03/31/23 11/02/23 History metformin 500 mg tablet 500 mg PO DAILY 03/31/23 11/02/23 History sertraline 100 mg tablet 100 mg PO BEDTIME 03/31/23 11/02/23 History verapamil 180 mg 24 hr 180 mg PO DAILY 03/31/23 11/02/23 History capsule,extended release VICTOZA 1.8 mg DAILY 09/07/23 History cholecalciferol (vitamin D3) 125 125 mcg PO DAILY 10/12/23 11/02/23 History mcg (5,000 unit) tablet acetaminophen 650 mg 650 mg PO Q12H PRN pain 10/15/23 11/02/23 History tablet,extended release diclofenac sodium 1 % topical gel 2 g topical QID 10/15/23 11/02/23 History magnesium 500 mg tablet 500 mg PO BID 10/15/23 11/02/23 History meclizine 25 mg tablet 12.5 mg PO BID PRN dizziness 10/15/23 11/02/23 History mecobalamin (vitamin B12) 1,000 1,000 mcg PO DAILY 10/15/23 11/02/23 History mcg chewable tablet triamcinolone acetonide 55 mcg 1 spray intranasal DAILY 10/15/23 11/02/23 History nasal spray aerosol (Nasacort) Allergies Allergy/AdvReac Type Severity Reaction Status Date / Time hydrochlorothiazide Allergy Severe Verified 11/02/23 10:13 celecoxib [From Celebrex] Allergy Unknown Verified 11/02/23 10:13 gabapentin AdvReac Severe Confusion Verified 11/02/23 10:13 Exam Narrative Exam Narrative: Psych-alert and oriented x 3. Attentive and appropriate, constitutionally mariusz l, displays normal mood and affect per situation.? There are no obvious deficits in memory, reasoning, or intellect.? Skin-no obvious rashes, bruising, erythema noted to the patient's area of pain. Extremities- extremities are warm with minimal edema and palpable pulses. Lumbar- tenderness to palpation in lumbar spine and paraspinal musculature. Multiple trigger points expressed on palpation. Pain is elicited with extension, and lateral rotation of the lumbar spine. Range of motion is slightly diminished with these motions due to pain. Coordination remains intact.? Gait remains non-antalgic. Constitutional Documenting provider has reviewed patient's vital signs: yes Common normals: no apparent distress, oriented x3, healthy appearing, alert and well nourished General appearance: cooperative HENMT Common normals: normocephalic, hearing grossly normal bilaterally and moist oral mucous membranes Head and scalp: normocephalic Eye Common normals: PERRL Pupil: PERRL Neck & C-Spine Common normals: full ROM General: normal visual inspection Chest Common normals: inspection of chest normal Respiratory Common normals: normal respiratory effort, no retractions and no use of accessory muscles Neuro Common normals: oriented x3, CN's II-XII intact bilaterally, moves all extremities, no focal motor deficits, no sensory deficits noted and deep tendon reflexes 2+ bilaterally Sensorium/orientation: alert Motor exam: strength 5/5 throughout and no movement abnormalities noted Psych Common normals: mental status grossly normal, thought process normal, cooperative, affect normal, speech normal and activity/motor behavior normal Speech: normal speech Thought process: normal thought process Results Additional Findings Additional findings: If on a controlled substance or opioids, I have checked an [place]AR[place] report on this patient and there are no aberrancies noted in the prescribing history.??If on a controlled substance or opioid a drug screen was completed and reviewed within the last year, and if there has not been a drug screen completed we ordered one today to monitor higher risk, state monitored pain medication use. As part of providing excellent, safe, comprehensive care, the following was completed at our patient's visit: 1. A medication reconciliation and review to ensure accurate knowledge of current/active medications, including asking our patients to inform us about any [id number] medications or herbal remedies/nutritional supplements/alternative remedies. 2. A review to specifically ensure our patients have had annual screening for screening for depression, screening for tobacco use, and screening for unhealthy alcohol use. For concerning screenings had a discussion with the patient, provided patient education, and recommended follow-up with primary care provider when appropriate. If patient noted with a risk of falling, they received education on strength, gait, and balance training to prevent future risk of falling. Assessment and Plan Assessment and Plan (1) Lumbar spondylosis: (2) Myofascial pain syndrome of thoracic spine: Plan bilateral L4-5 L5-S1 facet medial branch thermal RFA, to be completed under fluoroscopy. risks vs benefits reviewed continue HEP as tolerated continue current medications, tolerating well without side effects f/u 1 month after RFA
== END 2023-11-05 14:40 | disposition home or self-care (01) ==
LOC: PM 14:40
PROVIDERS: PCP Nurse Practitioner; Visit Provider Nurse Practitioner
DX: M47.816 Spondylosis without myelopathy or radiculopathy, lumbar region (principal); M79.18 Myalgia, other site
CPT/HCPCS: G0463

== ENCOUNTER 2023-12-01 09:24 | Outpatient (OUT) | payer OTHER, SELFPAY ==
--- OUTSIDE RECORDS SUMMARY | 2023-12-01 09:40 | XMS_ITS | CCD ---
Author Organization [facility] Care Team Providers Care Reflexologist Name Role Phone Katrin LIMON, Dr. Chandler Pryor Attending Unavailable Katrin LIMON, Dr. Chandler Pryor Referring Unavailable Aichholz, Mrs. Allison Bullock Primary Care Unavailab le VanessaAllison Ara Unavailable Unavailable Unavailable AICHHOLZ, RADIO EQUIPMENT REPAIRER ALLISON Consulting Unavailable AICHHOLZ, RADIO EQUIPMENT REPAIRER ALLISON Attending Unavailable AICHHOLZ, RADIO EQUIPMENT REPAIRER ALLISON Primary Care Unavailable AICHHOLZ, RADIO EQUIPMENT REPAIRER ALLISON Admitting Unavailable AICHHOLZ, RADIO EQUIPMENT REPAIRER ALLISON Consulting Unavailable AICHHOLZ, RADIO EQUIPMENT REPAIRER ALLISNO Attending Unavailable AICHHOLZ, RADIO EQUIPMENT REPAIRER ALLISON Primary Care Unavailable AICHHOLZ, RADIO EQUIPMENT REPAIRER ALLISON Admitting Unavailable AICHHOLZ, RADIO EQUIPMENT REPAIRER ALLISON Consulting Unavailable AICHHOLZ, RADIO EQUIPMENT REPAIRER ALLISON Attending Unavailable AICHHOLZ, RADIO EQUIPMENT REPAIRER ALLISON Admitting Unavailable AICHHOLZ, RADIO EQUIPMENT REPAIRER ALLISON Primary Care Unavailable FAWWAD, MEI H Admitting Unavailable AICHHOLZ, RADIO EQUIPMENT REPAIRER ALLISON Primary Care Unavailable VERO WILSON Consulting Unavailable FAWWAD, MEI H Attending Unavailable FAWWAD, MEI H Consulting Unavailable AICHHOLZ, RADIO EQUIPMENT REPAIRER ALLISON Consulting Unavailable AICHHOLZ, RADIO EQUIPMENT REPAIRER ALLISON Attending Unavailable AICHHOLZ, RADIO EQUIPMENT REPAIRER ALLISON Admitting Unavailable AICHHOLZ, RADIO EQUIPMENT REPAIRER ALLISON Primary Care Unavailable DR ZINA GREGORY Consulting Unavailable JESSE HATCH Attending Unavailable JESSE HATCH Admitting Unavailable AICHHOLZ, RADIO EQUIPMENT REPAIRER ALLISON Primary Care Unavailable JESSE HATCH Consulting Unavailable AICHHOLZ, RADIO EQUIPMENT REPAIRER ALLISON Primary Care Unavailable JESSE HATCH Attending Unavailable JESSE HATCH Admitting Unavailable JESSE HATCH Consulting Unavailable Lali Patel Consulting Unavailable AICHHOLZ, RADIO EQUIPMENT REPAIRER ALLISON Primary Care Unavailable MILLY, DR VERO De Oliveira Consulting Unavailable PAY ., DR PONCE Attending Unavailable PAY ., DR PONCE Admitting Unavailable PAY ., DR PONCE Consulting Unavailable AICHHOLZ, RADIO EQUIPMENT REPAIRER ALLISON Admitting Unavailable AICHHOLZ, RADIO EQUIPMENT REPAIRER ALLISON Attending Unavailable AICHHOLZ, RADIO EQUIPMENT REPAIRER ALLISON Primary Care Unavailable AICHHOLZ, RADIO EQUIPMENT REPAIRER ALLISON Attending Unavailable AICHHOLZ, RADIO EQUIPMENT REPAIRER ALLISON Admitting Unavailable AICHHOLZ, RADIO EQUIPMENT REPAIRER ALLISON Primary Care Unavailable MILLY, DR VERO De Oliveira Consulting Unavailable AICHHOLZ, RADIO EQUIPMENT REPAIRER ALLISON Consulting Unavailable AICHHOLZ, RADIO EQUIPMENT REPAIRER ALLISON Primary Care Unavailable DADEVILLE, DR VERO De Oliveira Consulting Unavailable FAWWAD, MEI H Attending Unavailable FAWWAD, MEI H Admitting Unavailable FAWWAD, MEI H Consulting Unavailable AICHHOLZ, RADIO EQUIPMENT REPAIRER ALLISON Admitting Unavailable AICHHOLZ, RADIO EQUIPMENT REPAIRER ALLISON Primary Care Unavailable AICHHOLZ, RADIO EQUIPMENT REPAIRER ALLISON Consulting Unavailable AICHHOLZ, RADIO EQUIPMENT REPAIRER ALLISON Attending Unavailable AICHHOLZ, RADIO EQUIPMENT REPAIRER ALLISON Admitting Unavailable AICHHOLZ, RADIO EQUIPMENT REPAIRER ALLISON Primary Care Unavailable AICHHOLZ, RADIO EQUIPMENT REPAIRER ALLISON Consulting Unavailable AICHHOLZ, RADIO EQUIPMENT REPAIRER ALLISON Attending Unavailable Unavailable Primary Care Provider Unavailabl e Aichholz SPECIFICATION MANAGER-RADIO EQUIPMENT REPAIRER, Allison J Primary Care Provider JOANN MAHMOOD Referring Unavailable AICHHOLZ, ALLISON J Primary Care Unavailable TAQUERIA SOLIS Referring Unavailable AICHHOLZ, ALLISON J Primary Care Unavailable ANGELINE, JENNIFER KAMALES Referring Unavaila ble AICHHOLZ, ALLISON ARA Referring Unavailable [facility] Attending Unavaila ble Unavailable Primary Care Provider Unavailabl e AICHHOLZ, ALLISON Attending Unavailable AICHHOLZ, ALLISON Attending Unavailable AICHHOLZ, ALLISON Attending Unavailable Giedraitis , Andrius Vytauttrang Attending Unavailable Giedraitis , Andrius Vytautas Attending Unavailable Giedraitis , Andrius Vytautas Attending Unavailable Giedraitis , Andrius Vytautas Attending Unavailable Allergies Allergy Classification Reported Allergen(s) Allergy Type Date of Onset Reaction(s) Facility (6 sources) gabapentin; Translations: [gabapentin] Drug Allergy 2 Other: See Comments [facility] (4 sources) hydroCHLOROthiaz ney; Translations: [hydroCHLOROthia zide CAPS] Drug Allergy 2 Other: See Comments [facility] (1 source) gabapentin Drug Allergy [facility] (3 sources) hydroCHLOROthiaz ney; Translations: [HYDROCHLOROTHIA ZIDE] Drug Allergy 4 [facility] Medications Current Medications Medication Drug [...] Start: 07-09-2021 take 1 capsule by mo [facility] every twenty-four hours in the morning verapamiL [...] Comment on above: Take 1 capsule by [facility] every afternoon. 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; Translations: [OTH CUSTODIAL CURRENT DRUG THERAPY] Onset: 03-05-2022 Episodic Other aftercare (1 source) assisted (current) use of oral hypoglycemic drugs; Translations: [CUSTODIAL USE ORAL HYPOGLYCEMIC DX] Onset: 01-16-2022 Episodic [...] Coag (Bld) [Time] 42 s High 26-37 [facility] Comment on above: Performed By: #### P INR, 21568-6 #### [facility] ([id number]) [address] [place] [address] #### CMP, FEPR, 2276-4, CBCA #### [facility] ([id number]) [address], [address] [place] [address] aPTT Coag (Bld) [Time] 35 s Normal -37 [facility] Comment on above: Performed By: #### P INR, 66825-7 #### [facility] ([id number]) [address] [place] [address] #### CMP, FEPR, 2276-4, CBCA #### [facility] ([id number]) [address], [address] [place] [address] PT Coag (PPP) [Time] 11.8 s Normal 9.8-13.2 [facility] Comment on above: Performed By: #### P INR, 02149-1 #### [facility] ([id number]) [address] [place] [address] #### CMP, FEPR, 2276-4, CBCA #### [facility] ([id number]) [address], [address] [place] [address] Coagulation factor IX activi ty actual/normal Coag (PPP) [Relative time]on 07-24-2023 FACTOR 9 ASSAY 134 % act Normal 65-150 [facility] Comment on above: Performed By: #### P INR, 15588-4 #### [facility] ([id number]) [address] [place] [address] #### CMP, FEPR, 6-4, CBCA #### [facility] ([id number]) [address], [address] [place] [address] Coagulation factor VIII acti vity actual/normal Coag (PPP) [Relative time]on 07-24-2023 FACTOR 8 ASSAY 120 % act Normal 50-150 [facility] Comment on above: Performed By: #### P INR, 15660-0 #### [facility] ([id number]) [address] [place] [address] #### CMP, FEPR, 6-4, CBCA #### [facility] ([id number]) [address], [address] [place] [address] Coagulation factor XI activi ty actual/normal Coag (PPP) [Relative time]on 07-24-2023 FACTOR 11 ASSAY 153 % act High 65-150 [facility] Comment on above: Performed By: #### P INR, 96122-2 #### [facility] ([id number]) [address] [place] [address] #### CMP, FEPR, 6-4, CBCA #### [facility] ([id number]) [address], [address] [place] [address] Coagulation factor XII activ ity actual/normal Coag (PPP) [Relative time]on 07-24-2023 FACTOR 12 ASSAY 86 % act Normal 50-150 [facility] Comment on above: Performed By: #### P INR, 42935-9 #### [facility] ([id number]) [address] [place] [address] #### CMP, FEPR, 6-4, CBCA #### [facility] ([id number]) [address], [address] [place] [address] [facility] ORDERon 024 TEST NAME [id number] VWF COLLAGEN III BINDING NACIT PLASMA Normal [facility] Comment on above: Result Comment: Maria Alejandra ected on 07/14 AT 1430: Previously reported as [id number] VWF COLLAGEN III BINDING Performed By: #### P INR, 02003-8 #### [facility] ([id number]) [address] [place] [address] #### CMP, FEPR, 6-4, CBCA #### [facility] ([id number]) [address], [address] [place] [address] TEST NAME [id number] VWF GPIBM ACTIVITY NACIT PLASMA Normal [facility] Comment on above: Performed By: #### P INR, 96000-6 #### [facility] ([id number]) [address] [place] [address] #### CMP, FEPR, 6-4, CBCA #### [facility] ([id number]) [address], [address] [place] [address] TEST RESULT SEE NOTE Normal [facility] Comment on above: Result Comment: NOTE Test name Result Flag Units RefIntvl VWF Collagen III Binding 110 IU/dL 50-203 For additional information, please visit [email or web address] This test was developed and its performance characteristics determined by [facility]. It has not been cleared or approved by the [place] Food and Drug Administration. This test is used for clinical purposes. It should not be regarded as investigational or for research. This laboratory is certified under the Clinical Laboratory Improvement Amendments (CLIA) as qualified to perform high complexity clinical laboratory testing. Performed by: [facility]. [address] [place] [address] Performed By: #### P INR, 21506-7 #### [facility] ([id number]) [address] [place] [address], [place] [address] #### CMP, FEPR, 2276-4, CBCA #### [facility] ([id number]) [address], [address] [place] [address] Result Comment: NOTE Test name Result Flag Units RefIntvl VWF GPIbM Activity 86 IU/dL 52-180 For additional information, please visit [email or web address] This test was developed and its performance characteristics determined by [facility]. It has not been cleared or approved by the [place] Food and Drug Administration. This test is used for clinical purposes. It should not be regarded as investigational or for research. This laboratory is certified under the Clinical Laboratory Improvement Amendments (CLIA) as qualified to perform high complexity clinical laboratory testing. Performed by: [facility]. [address] [address] CBC AND AUTO DIFFon 07-13-19 ABSOLUTE BASOPHIL 0.0 X10E9/L Normal 0.0-0.2 [facility] Comment on above: Performed By: #### P INR, 37769-7 #### [facility] ([id number]) [address] [place] [address] #### CMP, FEPR, 2276-4, CBCA #### [facility] ([id number]) [address] [place] [address], [address] [place] [address] ABSOLUTE NEUTROPHIL 5.0 X10E9/L Normal 1.5-6.6 [facility] Comment on above: Performed By: #### P INR, 68120-4 #### [facility] ([id number]) [address] [place] [address] #### CMP, FEPR, 2276-4, CBCA #### [facility] ([id number]) [address] [place] [address], [address] [place] [address] Basophils/100 WBC (Bld) 0.3 % Normal [facility] Comment on above: Performed By: #### P INR, 43852-6 #### [facility] ([id number]) [address] [place] [address] #### CMP, FEPR, 2276-4, CBCA #### [facility] ([id number]) [address], [address] [place] [address] Eosinophils (Bld) [#/Vol] 0.1 10*3/uL Normal 0.0-0.4 [facility] Comment on above: Performed By: #### P INR, 44841-6 #### [facility] ([id number]) [address] [place] [address] #### CMP, FEPR, 2276-4, CBCA #### [facility] ([id number]) [address] [address] Eosinophils/100 WBC (Bld) 1.3 % Normal [facility] Comment on above: Performed By: #### P INR, 60791-1 #### [facility] ([id number]) [address] [place] [address] #### CMP, FEPR, 2276-4, CBCA #### [facility] ([id number]) [address] [facility] [facility] [address] [place] [address] Erythrocyte distribution width (RBC) [Ratio] 13.2 % Normal 11.5-15.0 [facility] Comment on above: Performed By: #### P INR, 38900-6 #### [facility] ([id number]) [address] [place] [address] #### CMP, FEPR, 2276-4, CBCA #### [facility] ([id number]) [address] [place] [address] Hematocrit (Bld) [Volume fraction] 42.4 % Normal 35-47 [facility] Comment on above: Performed By: #### P INR, 50912-7 #### [facility] ([id number]) [address] [place] [address] #### CMP, FEPR, 2276-4, CBCA #### [facility] ([id number]) [address] [place] [address] [address] [place] [address] Hemoglobin (Bld) [Mass/Vol] 13.9 g/dL Normal 11.7-15.5 [facility] Comment on above: Performed By: #### P INR, 84496-1 #### [facility] ([id number]) [address] [place] [address] #### CMP, FEPR, 2276-4, CBCA #### [facility] ([id number]) [address] [facility], [address] [place] [address] Lymphocytes (Bld) [#/Vol] 2.0 10*3/uL Normal 1.0-3.5 [facility] Comment on above: Performed By: #### P INR, 72458-4 #### [facility] ([id number]) [address] [place] [address] #### CMP, FEPR, 2276-4, CBCA #### [facility] ([id number]) [address] [place] [address], [address] [place] [address] Lymphocytes/100 WBC (Bld) 26.7 % Normal [facility] Comment on above: Performed By: #### P INR, 13264-8 #### [facility] ([id number]) [address] [place] [address] #### CMP, FEPR, 2276-4, CBCA #### [facility] ([id number]) [address] [place] [address], [address] [place] [address] MCH (RBC) [Entitic mass] 29.6 pg Normal 27-34 [facility] Comment on above: Performed By: #### P INR, 08422-8 #### [facility] ([id number]) [address] [place] [address] #### CMP, FEPR, 2276-4, CBCA #### [facility] ([id number]) [address] [place] [address], [address] [place] [address] MCHC (RBC) [Mass/Vol] 32.8 g/dL Normal 32-36 [facility] Comment on above: Performed By: #### P INR, 09562-7 #### [facility] ([id number]) [address] [place] [address] #### CMP, FEPR, 2276-4, CBCA #### [facility] ([id number]) [address], [address] [place] [address] MCV (RBC) [Entitic vol] 90 fL Normal 80-100 [facility] Comment on above: Performed By: #### P INR, 66013-6 #### [facility] ([id number]) [address] [place] [address] #### CMP, FEPR, 6-4, CBCA #### [facility] ([id number]) [address], [address] [place] [address] Monocytes (Bld) [#/Vol] 0.5 10*3/uL Normal 0-0.9 [facility] Comment on above: Performed By: #### P INR, 34556-0 #### [facility] ([id number]) [address] [place] [address] #### CMP, FEPR, 2276-4, CBCA #### [facility] ([id number]) [address], [address] [place] [address] Monocytes/100 WBC (Bld) 6.9 % Normal [facility] Comment on above: Performed By: #### P INR, 03918-8 #### [facility] ([id number]) [address] [place] [address] #### CMP, FEPR, 2276-4, CBCA #### [facility] ([id number]) [address], [address] [place] [address] Neutrophils/100 WBC (Bld) 64.8 % Normal [facility] Comment on above: Performed By: #### P INR, 59136-8 #### [facility] ([id number]) [address] [place] [address] #### CMP, FEPR, 2276-4, CBCA #### [facility] ([id number]) [address] [facility], [address] [place] [address] Platelet mean volume (Bld) [Entitic vol] 11.5 fL Normal 7-12 [facility] Comment on above: Performed By: #### P INR, 31706-9 #### [facility] ([id number]) [address] [place] [address] #### CMP, FEPR, 2276-4, CBCA #### [facility] ([id number]) [address] [place] [address], [address] [place] [address] Platelets (Bld) [#/Vol] 205 10*3/uL Normal 150-450 [facility] Comment on above: Performed By: #### P INR, 66535-3 #### [facility] ([id number]) [address] [place] [address] #### CMP, FEPR, 2276-4, CBCA #### [facility] ([id number]) [address] [facility], [address] [place] [address] RBC COUNT 4.70 X10E12/L Normal 3.80-5.20 [facility] Comment on above: Performed By: #### P INR, 36323-6 #### [facility] ([id number]) [address] [place] [address] #### CMP, FEPR, 2276-4, CBCA #### [facility] ([id number]) [address] [facility] [address], [address] [place] [address] WBC (Bld) [#/Vol] 7.7 10*3/uL Normal 4.0-11.0 [facility] Comment on above: Performed By: #### P INR, 50408-2 #### [facility] ([id number]) [address] [place] [address] #### CMP, FEPR, 2276-4, CBCA #### [facility] ([id number]) [address], [address] [place] [address] COMPREHENSIVE METABOLIC PANE Drew 07-13-2023 Albumin [Mass/Vol] 4.6 g/dL Normal 3.2-5.3 [facility] Comment on above: Performed By: #### P INR, 41224-8 #### [facility] ([id number]) [address] [place] [address] #### CMP, FEPR, 2276-4, CBCA #### [facility] ([id number]) [address], [address] [place] [address] ALP [Catalytic activity/Vol] 118 U/L Normal 39-130 [facility] Comment on above: Performed By: #### P INR, 45314-7 #### [facility] ([id number]) [address] [place] [address] #### CMP, FEPR, 6-4, CBCA #### [facility] ([id number]) [address], [address] [place] [address] ALT [Catalytic activity/Vol] 12 U/L Normal 0-31 [facility] Comment on above: Performed By: #### P INR, 31895-0 #### [facility] ([id number]) [address] [place] [address] #### CMP, FEPR, 2276-4, CBCA #### [facility] ([id number]) [address], [address] [place] [address] Anion gap [Moles/Vol] 10 mmol/L Normal 5-15 [facility] Comment on above: Performed By: #### P INR, 30506-6 #### [facility] ([id number]) [address] [place] [address] #### CMP, FEPR, 2276-4, CBCA #### [facility] ([id number]) [address], [address] [place] [address] AST [Catalytic activity/Vol] 13 U/L Normal 0-41 [facility] Comment on above: Performed By: #### P INR, 98501-8 #### [facility] ([id number]) [address] [place] [address] #### CMP, FEPR, 2276-4, CBCA #### [facility] ([id number]) [address], [address] [place] [address] Bilirubin [Mass/Vol] 0.4 mg/dL Normal 0.3-1.2 [facility] Comment on above: Performed By: #### P INR, 51704-1 #### [facility] ([id number]) [address] [place] [address] #### CMP, FEPR, 6-4, CBCA #### [facility] ([id number]) [address], [address] [place] [address] Calcium [Mass/Vol] 9.8 mg/dL Normal 8.5-10.5 [facility] Comment on above: Performed By: #### P INR, 18194-5 #### [facility] ([id number]) [address] [place] [address] #### CMP, FEPR, 6-4, CBCA #### [facility] ([id number]) [address], [address] [place] [address] Chloride [Moles/Vol] 105 mmol/L Normal 98-109 [facility] Comment on above: Performed By: #### P INR, 70415-0 #### [facility] ([id number]) [address] [place] [address]6971 #### CMP, FEPR, 2276-4, CBCA #### [facility] ([id number]) [address] [place] [address] CO2 [Moles/Vol] 27 mmol/L Normal 22-32 [facility] Comment on above: Performed By: #### P INR, 14786-8 #### [facility] ([id number]) [address] [place] [address] #### CMP, FEPR, 6-4, CBCA #### [facility] ([id number]) [address], [address] [place] [address] Creatinine [Mass/Vol] 0.75 mg/dL Normal 0.40-1.00 [facility] Comment on above: Result Comment: METH OD TRACEABLE TO IDMS STANDARD Performed By: #### P INR, 72268-5 #### [facility] ([id number]) [address] [place] [address] #### CMP, FEPR, 6-4, CBCA #### [facility] ([id number]) [address] [place] [address] eGFR (CKD-EPI) NON-RACE DEPENDENT >90 Normal >59 [facility] Comment on above: Result Comment: Reported eGFR is based on the CKD-EPI 2021 equation that does not use a race coefficient. Performed By: #### P INR, 75731-8 #### [facility] ([id number]) [address] [place] [address] #### CMP, FEPR, 2276-4, CBCA #### [facility] ([id number]) [address] [place] [address] Glucose [Mass/Vol] 87 mg/dL Normal 65-99 [facility] Comment on above: Performed By: #### P INR, 28229-0 #### [facility] ([id number]) [address] [place] [address] #### CMP, FEPR, 2276-4, CBCA #### [facility] ([id number]) [address], [address] [place] [address] Potassium [Moles/Vol] 4.0 mmol/L Normal 3.5-5.0 [facility] Comment on above: Performed By: #### P INR, 14963-1 #### [facility] ([id number]) [address] [place] [address] #### CMP, FEPR, 2276-4, CBCA #### [facility] ([id number]) [address], [address] [place] [address] Protein [Mass/Vol] 7.7 g/dL Normal 6.0-8.0 [facility] Comment on above: Performed By: #### P INR, 86985-7 #### [facility] ([id number]) [address] [place] [address] #### CMP, FEPR, 2276-4, CBCA #### [facility] ([id number]) [address], [address] [place] [address] Sodium [Moles/Vol] 142 mmol/L Normal 134-146 [facility] Comment on above: Performed By: #### P INR, 66985-4 #### [facility] ([id number]) [address] [place] [address] #### CMP, FEPR, 2276-4, CBCA #### [facility] ([id number]) [address], [address] [place] [address] Urea nitrogen [Mass/Vol] 13 mg/dL Normal 5-23 [facility] Comment on above: Performed By: #### P INR, 86733-8 #### [facility] ([id number]) [address] [place] [address] #### CMP, FEPR, 6-4, CBCA #### [facility] ([id number]) [address], [address] [place] [address] Coagulation factor VIII acti vity actual/normal Coag (PPP) [Relative time]on 07-13-2023 FACTOR 8 ASSAY 97 % act Normal 50-150 [facility] Comment on above: Performed By: #### P INR, 24272-6 #### [facility] ([id number]) [address] [place] [address] #### CMP, FEPR, 2275-4, CBCA #### [facility] ([id number]) [address], [address] [place] [address] FERRITINon 07-13-2023 Ferritin [Mass/Vol] 60 ng/mL Normal 11-307 [facility] Comment on above: Performed By: #### P INR, 57704-2 #### [facility] ([id number]) [address] [place] [address] #### CMP, FEPR, 2275-4, CBCA #### [facility] [facility] ([id number]) [address], [address] [place] [address] IRON PROFILEon 07-13-2023 Iron [Mass/Vol] 66 ug/dL Normal 50-170 [facility] Comment on above: Performed By: #### P INR, 60065-5 #### [facility] ([id number]) [address] [place] [address] #### CMP, FEPR, 6-4, CBCA #### [facility] ([id number]) [address], [address] [place] [address] IRON BINDING 318 ug/dL Normal 250-425 [facility] Comment on above: Performed By: #### P INR, 34392-1 #### [facility] ([id number]) [address] [place] [address] #### CMP, FEPR, 2276-4, CBCA #### [facility] ([id number]) [address], [address] [place] [address] IRON SATURATION 21 % SATURATION Normal 15-50 [facility] Comment on above: Performed By: #### P INR, 52309-6 #### [facility] ([id number]) [address] [place] [address] #### CMP, FEPR, 2276-4, CBCA #### [facility] ([id number]) [address], [address] [place] [address] Laboratory comment Aftab (Repo rt)on 07-13-2023 UNLISTED LAB TEST Sent to reference lab Normal [facility] Comment on above: Performed By: #### A GO #### [facility] ([id number]) [address] [place] [address] Performed By: #### P INR, 91635-4 #### [facility] ([id number]) [address] [place] [address] #### CMP, FEPR, 2276-4, CBCA #### [facility] ([id number]) [address], [address] [place] [address] PROTIME AND INRon 07-13-2023 INR Coag (PPP) [Relative time] 1.0 {INR} Normal 0.8-1.1 [facility] Comment on above: Performed By: #### P INR, 01210-6 #### [facility] ([id number]) [address] [place] [address] #### CMP, FEPR, 2276-4, CBCA #### [facility] ([id number]) [address], [address] [place] [address] PT Coag (PPP) [Time] 12.0 s Normal 9.8-13.2 [facility] Comment on above: Result Comment: NEW REFERENCE RANGE Performed By: #### P INR, 40762-3 #### [facility] ([id number]) [address] [place] [address] #### CMP, FEPR, 2276-4, CBCA #### [facility] ([id number]) [address], [address] [place] [address] aPTT Coag (PPP) [Time]on aPTT Coag (Bld) [Time] 46 s High 26-37 [facility] Comment on above: Result Comment: NEW REFERENCE RANGE Performed By: #### P INR, 15156-7 #### [facility] ([id number]) [address] [place] [address] #### CMP, FEPR, 2276-4, CBCA #### [facility] ([id number]) [address], [address] [place] [address] vWf Ag IA Qn (PPP)on 024 [employer] AG 118 % Normal 50-150 [facility] Comment on above: Result Comment: It has [...] 69:1691, 1989 Performed By: #### P INR, 10623-8 #### [facility] ([id number]) [address] [place] [address] #### CMP, FEPR, 2276-4, CBCA #### [facility] ([id number]) [address] [facility] [address], [address] [place] [address] vWf.activity actual/normal I A (PPP) [Relative ratio]on 07-13-2023 von Willebrand Factor Activity 88 % Normal 50-200 [facility] Comment on above: Performed By: #### P INR, 86265-6 #### [facility] ([id number]) [address] [place] [address] #### CMP, FEPR, 2276-4, CBCA #### [facility] ([id number]) [address] [place] [address], [address] [place] [address] 25(OH)D3 [facility] 2022 25-hydroxyvitamin D3 [Mass/Vol] 14.6 ng/mL Low 31.0-80.0 [facility] Comment on above: Order Comment: Speci men Type: BLOOD SPECIMEN Ordering Facility: [facility] Address: [address] [place] [address] Result Comment: Clas sification of 25 [place] Vitamin D status: Deficiency/Insufficiency: < or = 30 ng/ml. Sufficiency/Optimal Levels: 31-80 ng/mL Toxicity: > 100 ng/mL. Test performed by chemiluminescent immunoassay. Performed By: #### 1 989-3 #### [facility] CLIA [id number] [address] [facility] [place] [place] [address] [place] CBC W Auto Differential pane l (Bld)on 02-17-2023 Basophils (Bld) [#/Vol] 0.03 10*3/uL <0.11 k/uL [facility] Basophils/100 WBC (Bld) 0.3 % [facility] Differential cell count method Nom (Bld) Auto [facility] Eosinophils (Bld) [#/Vol] 0.12 10*3/uL <0.46 k/uL [facility] Eosinophils/100 WBC (Bld) 1.2 % [facility] Erythrocyte distribution width (RBC) [Ratio] 12.7 % 11.5 - 15.0 % [facility] Hematocrit (Bld) [Volume fraction] 44.5 % 36.0 - 46.0 % [facility] Hemoglobin (Bld) [Mass/Vol] 14.4 g/dL 11.5 - 15.5 g/dL [facility] Immature granulocytes (Bld) [#/Vol] 0.03 10*3/uL <0.10 k/uL [facility] Immature granulocytes/100 WBC (Bld) 0.3 % [facility] Lymphocytes (Bld) [#/Vol] 1.93 10*3/uL 1.00 - 4.00 k/uL [facility] Lymphocytes/100 WBC (Bld) 19.7 % [facility] MCH (RBC) [Entitic mass] 30.3 pg 26.0 - 34.0 pg [facility] MCHC (RBC) [Mass/Vol] 32.4 g/dL 30.5 - 36.0 g/dL [facility] MCV (RBC) [Entitic vol] 93.5 fL 80.0 - 100.0 fL [facility] Monocytes (Bld) [#/Vol] 0.78 10*3/uL <0.87 k/uL [facility] Monocytes/100 WBC (Bld) 7.9 % [facility] Neutrophils (Bld) [#/Vol] 6.93 10*3/uL 1.45 - 7.50 k/uL [facility] Neutrophils/100 WBC (Bld) 70.6 % [facility] Nucleated RBC (Bld) [#/Vol] <0.01 k/uL [facility] Nucleated RBC/100 WBC (Bld) [Ratio] 0.0 /100 WBC [facility] Platelet mean volume (Bld) [Entitic vol] 13.2 fL High 9.0 - 12.7 fL [facility] Platelets (Bld) [#/Vol] 245 10*3/uL 150 - 400 k/uL [facility] RBC (Bld) [#/Vol] 4.76 10*6/uL 3.90 - 5.2 0 m/uL [facility] WBC (Bld) [#/Vol] 9.82 10*3/uL 3.70 - 11. 00 k/uL [facility] Basophils (Bld) [#/Vol] 0.03 10*3/uL Normal <0.11 [facility] Comment on above: Order Comment: Speci men Type: BLOOD SPECIMEN Ordering Facility: [facility] Address: [address] [place] [address] Performed By: #### 5 7021-8 #### [facility] CLIA [id number] [address] [place] [address] [place] Basophils/100 WBC (Bld) 0.3 % Normal [facility] Comment on above: Order Comment: Speci men Type: BLOOD SPECIMEN Ordering Facility: [facility] Address: [address] [place] [address] Performed By: #### 5 7021-8 #### [facility] CLIA [id number] [address] [place] [address] [place] Differential cell count method Nom (Bld) Auto Normal [facility] Comment on above: Order Comment: Speci men Type: BLOOD SPECIMEN Ordering Facility: [facility] Address: [address] [place] [address] Performed By: #### 5 7021-8 #### [facility] CLIA [id number] [address] [place] [address] [place] Eosinophils (Bld) [#/Vol] 0.12 10*3/uL Normal <0.46 [facility] Comment on above: Order Comment: Speci men Type: BLOOD SPECIMEN Ordering Facility: [facility] Address: [address] [place] [address] Performed By: #### 5 7021-8 #### [facility] CLIA [id number] [address] [place] [address] [place] Eosinophils/100 WBC (Bld) 1.2 % Normal [facility] Comment on above: Order Comment: Speci men Type: BLOOD SPECIMEN Ordering Facility: [facility] Address: [address] [place] [address] Performed By: #### 5 7021-8 #### [facility] CLIA [id number] [address] [place] [address] [place] Erythrocyte distribution width (RBC) [Ratio] 12.7 % Normal 11.5-15.0 [facility] Comment on above: Order Comment: Speci men Type: BLOOD SPECIMEN Ordering Facility: [facility] Address: [address] [place] [address] Performed By: #### 5 7021-8 #### [facility] CLIA [id number] [address] [place] [address] [place] Hematocrit (Bld) [Volume fraction] 44.5 % Normal 36.0-46.0 [facility] Comment on above: Order Comment: Speci men Type: BLOOD SPECIMEN Ordering Facility: [facility] Address: [address] [place] [address] Performed By: #### 5 7021-8 #### [facility] CLIA [id number] [address] [place] [address] [place] Hemoglobin (Bld) [Mass/Vol] 14.4 g/dL Normal 11.5-15.5 [facility] Comment on above: Order Comment: Speci men Type: BLOOD SPECIMEN Ordering Facility: [facility] Address: [address] [place] [address] Performed By: #### 5 7021-8 #### [facility] CLIA [id number] [address] [place] [address] [place] Immature granulocytes (Bld) [#/Vol] 0.03 10*3/uL Normal <0.10 [facility] Comment on above: Order Comment: Speci men Type: BLOOD SPECIMEN Ordering Facility: [facility] Address: [address] [place] [address] Performed By: #### 5 7021-8 #### [facility] CLIA [id number] [address] [place] [address] [place] Immature granulocytes/100 WBC (Bld) 0.3 % Normal [facility] Comment on above: Order Comment: Speci men Type: BLOOD SPECIMEN Ordering Facility: [facility] Address: [address] [place] [address] Performed By: #### 5 7021-8 #### [facility] CLIA [id number] [address] [place] [address] [place] Lymphocytes (Bld) [#/Vol] 1.93 10*3/uL Normal 1.00-4.00 [facility] Comment on above: Order Comment: Speci men Type: BLOOD SPECIMEN Ordering Facility: [facility] Address: [address] [place] [address] Performed By: #### 5 7021-8 #### [facility] CLIA [id number] [address] [place] [address] [place] Lymphocytes/100 WBC (Bld) 19.7 % Normal [facility] Comment on above: Order Comment: Speci men Type: BLOOD SPECIMEN Ordering Facility: [facility] Address: [address] [place] [address] Performed By: #### 5 7021-8 #### [facility] CLIA [id number] [address] [place] [address] [place] MCH (RBC) [Entitic mass] 30.3 pg Normal 26.0-34.0 [facility] Comment on above: Order Comment: Speci men Type: BLOOD SPECIMEN Ordering Facility: [facility] Address: [address] [place] [address] Performed By: #### 5 7021-8 #### [facility] CLIA [id number] [address] [place], [place] [address] [place] MCHC (RBC) [Mass/Vol] 32.4 g/dL Normal 30.5-36.0 [facility] Comment on above: Order Comment: Speci men Type: BLOOD SPECIMEN Ordering Facility: [facility] Address: [address] [place] [address] Performed By: #### 5 7021-8 #### [facility] CLIA [id number] [address] [place] [address] [place] MCV (RBC) [Entitic vol] 93.5 fL Normal 80.0-100.0 [facility] Comment on above: Order Comment: Speci men Type: BLOOD SPECIMEN Ordering Facility: [facility] Address: [address] [place] [address] Performed By: #### 5 7021-8 #### [facility] CLIA [id number] [address] [place] [address] [place] Monocytes (Bld) [#/Vol] 0.78 10*3/uL Normal <0.87 [facility] Comment on above: Order Comment: Speci men Type: BLOOD SPECIMEN Ordering Facility: [facility] Address: [address] [place] [address] Performed By: #### 5 7021-8 #### [facility] CLIA [id number] [address] [place] [address] [place] Monocytes/100 WBC (Bld) 7.9 % Normal [facility] Comment on above: Order Comment: Speci men Type: BLOOD SPECIMEN Ordering Facility: [facility] Address: [address] [place] [address] Performed By: #### 5 7021-8 #### [facility] CLIA [id number] [address] [place] [address] [place] Neutrophils (Bld) [#/Vol] 6.93 10*3/uL Normal 1.45-7.50 [facility] Comment on above: Order Comment: Speci men Type: BLOOD SPECIMEN Ordering Facility: [facility] Address: [address] [place] [address] Performed By: #### 5 7021-8 #### [facility] CLIA [id number] [address] [place] [address] [place] Neutrophils/100 WBC (Bld) 70.6 % Normal [facility] Comment on above: Order Comment: Speci men Type: BLOOD SPECIMEN Ordering Facility: [facility] Address: [address] [place] [address] Performed By: #### 5 7021-8 #### [facility] CLIA [id number] [address] [place] [address] [place] Nucleated RBC (Bld) [#/Vol] 10*3/uL Normal <0.01 [facility] Comment on above: Order Comment: Speci men Type: BLOOD SPECIMEN Ordering Facility: [facility] Address: [address] [place] [address] Performed By: #### 5 7021-8 #### [facility] CLIA [id number] [address] [place] [address] [place] Nucleated RBC/100 WBC (Bld) [Ratio] 0.0 /100 WBC Normal [facility] Comment on above: Order Comment: Speci men Type: BLOOD SPECIMEN Ordering Facility: [facility] Address: [address] [place] [address] Performed By: #### 5 7021-8 #### [facility] CLIA [id number] [address] [place] [address] [place] Platelet mean volume (Bld) [Entitic vol] 13.2 fL High 9.0-12.7 [facility] Comment on above: Order Comment: Speci men Type: BLOOD SPECIMEN Ordering Facility: [facility] Address: [address] [place] [address] Performed By: #### 5 7021-8 #### [facility] CLIA [id number] [address] [place] [address] [place] Platelets (Bld) [#/Vol] 245 10*3/uL Normal 150-400 [facility] Comment on above: Order Comment: Shani kay Type: BLOOD SPECIMEN Ordering Facility: [facility] Address: [address] [place] [address] Result Comment: Resu lts checked and verified.No clot detected. Performed By: #### 5 7021-8 #### [facility] CLIA [id number] [address] [place] [address] [place] RBC (Bld) [#/Vol] 4.76 10*6/uL Normal 3.90-5.20 [facility] Comment on above: Order Comment: Shani kay Type: BLOOD SPECIMEN Ordering Facility: [facility] Address: [address] [place] [address] Performed By: #### 5 7021-8 #### [facility] CLIA [id number] [address] [place] [address] [place] WBC (Bld) [#/Vol] 9.82 10*3/uL Normal 3.70-11.00 [facility] Comment on above: Order Comment: Shani kay Type: BLOOD SPECIMEN Ordering Facility: [facility] Address: [address] [place] [address] Performed By: #### 5 7021-8 #### [facility] CLIA [id number] [address] [place] [address] [place] CNOVon 02-17-2023 CNOV Office Visit (GONSALOULN ) DENISHA VELASCO ([id number]) 1985 F Date Time Provider Department 02/17/23 9:00 AM JENNIFER MARCUS During your visit today, we recorded the following information about you: Pulse Blood pressure Weight 96/minute 116/82 126.6 kg Jennifer Marcus MD 02/17/2023 10:02 AM Signed [facility] Date of Service: 02/17/2023 Patient: Denisha Velasco Medical Record: [id number] Last Rheumatology visit: None at [facility] History of Present Illness Denisha Velasco [...] other than (more content not included)... Normal [facility] VITAMIN D 25 HYDROXYon 02-17 25-hydroxyvitamin D3 [Mass/Vol] 14.6 ng/mL Low 31.0 - 80.0 ng/mL [facility] Vit B12 SerPl-mCncon 023 Cobalamin (Vitamin B12) [Mass/Vol] 347 pg/mL Normal 232-1245 [facility] Comment on above: Order Comment: Speci men Type: BLOOD SPECIMEN Ordering Facility: [facility] Address: [address] [place] [address] Performed By: #### 2 132-9 #### [facility] CLIA [id number] [address] OF [facility] SARS-CoV2 IgMon 07-07-2022 Comment Notes Normal [facility] Comment on above: Result Comment: Nega tive results to antibodies against SARS-CoV-2 are generally indicative of non-exposure to virus and lack of longevity of antibody response. Performed By: #### C VDABM #### [facility] [address] [place] [address] Dr. Karey Ordoñez Disclaimer Notes Normal [facility] Comment on above: Result Comment: This is a lab developed test. This test has been validated in accordance with [facility] guidelines and FDA guidance [...] due to past or present infection with onc-TPSO-UsO-2 coronavirus strains, such as coronavirus HKU1, NL63, OC43, or 229E. Performed By: #### C VDABM #### [facility] [address] [place] [address] Dr. Karey Ordoñez Electronically Signed By Comment Normal [facility] Comment on above: Result Comment: Fernando Scales Performed By: #### C VDABM #### [facility] [address] [place] [address] Dr. Karey Ordoñez Methodology Comment [facility] Comment on above: Result Comment: Chem iluminescence Performed By: #### C VDABM #### [facility] [address] [place] [address] Dr. Karey Ordoñez References Notes Normal [facility] Comment on above: Result Comment: Sheldon [...] application of serological tests in clinical practice. 10.1101/[id number]. Performed By: #### C VDABM #### [facility] [address] [place] [address] Dr. Karey Ordoñez Result Negative [facility] Comment on above: Performed By: #### C VDABM #### [facility] [address] [place] [address] Dr. Karey Ordoñez Value 0.03 COI [facility] Comment on above: Result Comment: <0.8 : Negative 0.8-<1.0: Indeterminate >=1.0: Positive Performed By: #### C VDABM #### [facility] [address] [address] [address] Karey Ordoñez SARS-CoV2 IgGon 07-04-2022 SARS-CoV-2 (COVID-19) IgG IA.rapid Ql (S/P/Bld) >800.0 Normal Neg <13.0 [facility] Comment on above: Performed By: #### C VDIGG #### [facility] [address] [address] [address] Karey Ordoñez SARS-CoV-2 (COVID-19) RNA RUBY+probe Ql (Unsp spec) Positive Normal [facility] Comment on above: Result Comment: Anti bodies against the SARS-CoV-2 spike protein, including the receptor binding domain (RBD) were detected. It is not yet known what level of antibody to SARS-CoV-2 spike protein correlates to immunity against developing symptomatic SARS-CoV-2 disease. This assay was performed using [employer](R) SARS-CoV-2 Trimeric S IgG assay. Performed By: #### C VDIGG #### [facility] [address] [place] [address] Dr. Karey Ordoñez Office Visit (Cardiology)on 06-30-2022 Follow-up visit Diagnoses/Problems Assessed Benign essential hypertension (401.1) (I10) Vertigo (780.4) (R42) Morbid obesity with BMI of 45.0-49.9, adult (278.01,V85.42) (E66.01,Z68.42) Never smoker Orders Morbid obesity with BMI of 45.0-49.9, adult Healthy Weight Tips; Status:Complete - Retrospective Authorization; Done: [id number] Some eating tips that can help you lose weight.; Status:Complete - Retrospective Authorization; Done: [id number] SocHx: Never smoker Tobacco Use Screening; Status:Complete; Done: [id number] Patient Instructions Please bring all medicines, vitamins, [...] negative for complaint. Vitals Vital Signs Recorded: 30Jun2022 09:45AM Heart Rate74, R Radial Fqxglsxw976, RUE, Sitting Wqwsjkxvj95, RUE, Sitting Height5 ft 3 in Kmleei516 lb BMI Brybimqmwt24.42 kg/m2 BSA Calculated2.23 Tobacco Useb) No PHQ-2 [...] . Abdomen: (more content not included)... Normal [employer] Tobacco Screening.on 023 Adult depression screening assessment No [facility] [employer] 250 DO Work Phone: Fall risk assessment a) No falls within the last year [facility] [employer] 250 DO Work Phone: Tobacco use status [facility]PH[facility] b) No [facility] App Partner[employer] 250 DO Work Phone: FREE T4on 05-12-2022 Free T4 [Mass/Vol] 1.11 ng/dL Normal 0.76-1.46 [facility] Comment on above: Performed By: #### F T4 #### [facility] [address] [place] [address] Dr. Karey Ordoñez GLYCOHEMOGLOBIN A1Con 2022 ADA RECOMMENDATION SEE BELOW Normal [facility] Comment on above: Result Comment: ADA RECOMMENDED LIMIT 4.0 - 6.0 ADA THERAPEUTIC TARGET < 7.0 ACTION SUGGESTED > 7.0 Performed By: #### F T4 #### [facility] [address] [place] [address] Dr. Karey Ordoñez Glucose [Mass/Vol] 114 mg/dL Normal [facility] Comment on above: Performed By: #### F T4 #### [facility] [address] [place] [address] Dr. Karey Ordoñez HbA1c (Bld) [Mass fraction] 5.6 % Normal 4.5-6.2 [facility] Comment on above: Performed By: #### F T4 #### [facility] [address] [place] [address] Dr. Karey Ordoñez PROF CHEM 8 (BAS METB)on Anion gap [Moles/Vol] 13.5 mmol/L Normal [facility] Comment on above: Performed By: #### T SH, BMP #### [facility] [address] [place] [address] Dr. Karey Ordoñez Calcium [Mass/Vol] 9.1 mg/dL Normal 8.5-10.1 [facility] Comment on above: Performed By: #### T SH, BMP #### [facility] [address] [place] [address] Dr. Karey Ordoñez Chloride [Moles/Vol] 103 mmol/L Normal 98-107 [facility] Comment on above: Performed By: #### T SH, BMP #### [facility] [address] [place] [address] Dr. Karey Ordoñez CO2 [Moles/Vol] 26.7 mmol/L Normal 21.0-32.0 [facility] Comment on above: Performed By: #### T SH, BMP #### [facility] [address] [address] [address] Karey Ordoñez Creatinine [Mass/Vol] 0.79 mg/dL Normal 0.55-1.02 [facility] Comment on above: Performed By: #### T SH, BMP #### [facility] [address] [address] [address] Karey Ordoñez EGFR-AF COMORAN >60 Normal >=60 [facility] Comment on above: Performed By: #### T SH, BMP #### [facility] [address] [address] [address] Karey Ordoñez EGFR-NON AF COMORAN >60 Normal >=60 [facility] Comment on above: Performed By: #### T SH, BMP #### [facility] [address] [address] [address] Karey Ordoñez Glucose [Mass/Vol] 94 mg/dL Normal 74-106 [facility] Comment on above: Performed By: #### T SH, BMP #### [facility] [address] [place] [address] Dr. Karey Ordoñez Potassium [Moles/Vol] 4.2 mmol/L Normal 3.5-5.1 [facility] Comment on above: Performed By: #### T SH, BMP #### [facility] [address] [place] [address] Dr. Karey Ordoñez Sodium [Moles/Vol] 139 mmol/L Normal 136-145 [facility] Comment on above: Performed By: #### T SH, BMP #### [facility] [address] [place] [address] Dr. Karey Ordoñez Urea nitrogen [Mass/Vol] 12.0 mg/dL Normal 7.0-18.0 [facility] Comment on above: Performed By: #### T SH, BMP #### [facility] [address] [place] [address] Dr. Karey Ordoñez Urea nitrogen/Creatinine [Mass ratio] 15.2 mg/mg Normal [facility] Comment on above: Performed By: #### T SH, BMP #### [facility] [address] [address] [address] Karey Ordoñez TSHon 05-12-2022 TSH 1.098 uIU/mL Normal 0.358-3.740 [facility] Comment on above: Performed By: #### T SH, BMP #### [facility] [address] [address] [address] Karey Ordoñez FREE T3on 02-06-2022 FREE T3 1.79 pg/mlL Critically low 2.18-3.98 [facility] Comment on above: Performed By: #### F T3, TSH #### [facility] [address] [address] [address] Karey Ordoñez FREE T4on 02-06-2022 Free T4 [Mass/Vol] 1.12 ng/dL Normal 0.76-1.46 [facility] Comment on above: Performed By: #### F T4 #### [facility] [address] [address] [address] Karey Ordoñez TSHon 02-06-2022 TSH 2.571 uIU/mL Normal 0.358-3.740 [facility] Comment on above: Performed By: #### F T3, TSH #### [facility] [address] [place] [address] Dr. Karey Ordoñez MRI BRAIN WO CONon [...] by: VERO ATKINS Date: 2022-01-22 13:[address] [facility] [address] CSPINE WO CONon 2 CT [...] LALI PATEL Date: 2022-01-18 10:22 Normal [facility] US CAROTID ART BILon 022 US [...] ZINA GREGORY Date: 2022-01-17 18:33 [address] [facility] [address] HEAD WO CONon 01-15-2022 CT [...] by: VERO ATKINS Date: 2022-01-15 11:07 Normal [facility] MRI KNEE RT WO CONon 12-18-2 022 MRI KNEE RT WO CON EXAMINATION: [...] by: VERO ATKINS Date: 2021-12-18 15:05 Normal [facility] XR KNEE RT 3Von 12-10-2021 XR [...] VERO WILSON Date: 2021-12-10 06:40 Normal [facility] LIVER PROFILEon 10-29-2021 Albumin [Mass/Vol] 3.7 g/dL Normal 3.4-5.0 [facility] Comment on above: Performed By: #### F T4 #### [facility] [address] [place] [address] Dr. Karey Ordoñez Albumin/Globulin [Mass ratio] 0.9 {ratio} Normal [facility] Comment on above: Performed By: #### F T4 #### [facility] [address] [place] [address] Dr. Karey Ordoñez ALP [Catalytic activity/Vol] 111 U/L Normal 46-116 [facility] Comment on above: Performed By: #### F T4 #### [facility] [address] [place] [address] Dr. Karey Ordoñez ALT [Catalytic activity/Vol] 22 U/L Normal 14-59 [facility] Comment on above: Performed By: #### F T4 #### [facility] [address] [place] [address] Dr. Karey Ordoñez AST [Catalytic activity/Vol] 12 U/L Critically low 15-37 [facility] Comment on above: Performed By: #### F T4 #### [facility] [address] [place] [address] Dr. Karey Ordoñez BILI, CONJUGATED 0.1 mg/dL Normal 0.0-0.2 [facility] Comment on above: Performed By: #### F T4 #### [facility] [address] [place] [address] Dr. Karey Ordoñez Bilirubin [Mass/Vol] 0.5 mg/dL Normal 0.2-1.0 [facility] Comment on above: Performed By: #### F T4 #### [facility] [address] [place] [address] Dr. Karey Ordoñez Globulin (S) [Mass/Vol] 4.1 g/dL Normal [facility] Comment on above: Performed By: #### F T4 #### [facility] [address] [place] [address] Dr. Karey Ordoñez Protein [Mass/Vol] 7.8 g/dL Normal 6.4-8.2 [facility] Comment on above: Performed By: #### F T4 #### [facility] [address] [place] [address] Dr. Karey Ordoñez INSULINon 10-02-2021 Insulin 10.5 uIU/mL Normal 2.6-24.9 [facility] Comment on above: Performed By: #### I NSULIN #### [facility] [address] [place] [address] Dr. Karey Ordoñez CBC AUTO DIFFon 10-01-2021 BASO # 0.0 103/ul Normal 0.0-0.1 [facility] Comment on above: Performed By: #### F T4 #### [facility] [address] [place] [address] Dr. Karey Ordoñez Basophils/100 WBC (Bld) 0.4 % Normal 0.2-2.0 [facility] Comment on above: Performed By: #### F T4 #### [facility] [address] [place] [address] Dr. Karey Ordoñez EO # 0.1 103/ul Normal 0.0-0.7 [facility] Comment on above: Performed By: #### F T4 #### [facility] [address] [place] [address] Dr. Karey Ordoñez Eosinophils/100 WBC (Bld) 1.1 % Normal 0.9-7.0 [facility] Comment on above: Performed By: #### F T4 #### [facility] [address] [place] [address] Dr. Karey Ordoñez Erythrocyte distribution width (RBC) [Ratio] 12.9 % Normal 11.0-15.0 [facility] Comment on above: Performed By: #### F T4 #### [facility] [address] [place] [address] Dr. Karey Ordoñez Hematocrit (Bld) [Volume fraction] 41.5 % Normal 36.0-48.0 [facility] Comment on above: Performed By: #### F T4 #### [facility] [address] [place] [address] Dr. Karey Ordoñez Hemoglobin (Bld) [Mass/Vol] 13.0 g/dL Normal 12.0-16.0 [facility] Comment on above: Performed By: #### F T4 #### [facility] [address] [place] [address] Dr. Karey Ordoñez IG # 0.04 10e3/ul Critically high 0.00-0.03 [facility] Comment on above: Performed By: #### F T4 #### [facility] [address] [place] [address] Dr. Karey Ordoñez IG % 0.5 % Normal 0.0-0.5 [facility] Comment on above: Performed By: #### F T4 #### [facility] [address] [place] [address] Dr. Karey Ordoñez LYMPH # 1.9 103/ul Normal 1.2-3.8 [facility] Comment on above: Performed By: #### F T4 #### [facility] [address] [place] [address] Dr. Karey Ordoñez Lymphocytes/100 WBC (Bld) 22.7 % Normal 20.5-60.0 [facility] Comment on above: Performed By: #### F T4 #### [facility] [address] [place] [address] Dr. Karey Ordoñez MANUAL DIFF REQ NO Normal [facility] Comment on above: Performed By: #### F T4 #### [facility] [address] [place] [address] Dr. Karey Ordoñez MCH (RBC) [Entitic mass] 28.9 pg Normal 26.7-34.0 [facility] Comment on above: Performed By: #### F T4 #### [facility] [address] [place] [address] Dr. Karey Ordoñez MCHC (RBC) [Mass/Vol] 31.3 g/dL Normal 29.9-35.2 [facility] Comment on above: Performed By: #### F T4 #### [facility] [address] [place] [address] Dr. Karey Ordoñez MCV (RBC) [Entitic vol] 92.2 fL Normal 81.0-99.0 [facility] Comment on above: Performed By: #### F T4 #### [facility] [address] [place] [address] Dr. Karey Ordoñez MONO # 0.6 103/ul Normal 0.3-0.8 [facility] Comment on above: Performed By: #### F T4 #### [facility] [address] [place] [address] Dr. Karey Ordoñez Monocytes/100 WBC (Bld) 6.8 % Normal 1.7-12.0 [facility] Comment on above: Performed By: #### F T4 #### [facility] [address] [place] [address] Dr. Karey Ordoñez NEUT # 5.8 103/ul Normal 1.4-6.5 [facility] Comment on above: Performed By: #### F T4 #### [facility] [address] [place] [address] Dr. Karey Ordoñez Neutrophils/100 WBC (Bld) 68.5 % Normal 43.0-75.0 [facility] Comment on above: Performed By: #### F T4 #### [facility] [address] [place] [address] Dr. Karey Ordoñez Platelet mean volume (Bld) [Entitic vol] 12.8 fL Normal 9.5-13.5 [facility] Comment on above: Performed By: #### F T4 #### [facility] [address] [place] [address] Dr. Karey Ordoñez PLT 231 103/ul Normal 150-450 [facility] Comment on above: Performed By: #### F T4 #### [facility] [address] [place] [address] Dr. Karey Ordoñez RBC 4.50 106/ul Normal 4.20-5.40 [facility] Comment on above: Performed By: #### F T4 #### [facility] [address] [place] [address] Dr. Karey Ordoñez WBC 8.5 103/ul Normal 4.0-11.0 [facility] Comment on above: Performed By: #### F T4 #### [facility] [address] [place] [address] Dr. Karey Ordoñez FREE T4on 10-01-2021 Free T4 [Mass/Vol] 1.27 ng/dL Normal 0.76-1.46 [facility] Comment on above: Performed By: #### F T4 #### [facility] [address] [place] [address] Dr. Karey Ordoñez GLYCOHEMOGLOBIN A1Con 2021 ADA RECOMMENDATION SEE BELOW Normal [facility] Comment on above: Result Comment: ADA RECOMMENDED LIMIT 4.0 - 6.0 ADA THERAPEUTIC TARGET < 7.0 ACTION SUGGESTED > 7.0 Performed By: #### A 1C #### [facility] [address] [place] [address] Dr. Karey Ordoñez Glucose [Mass/Vol] 123 mg/dL Normal [facility] Comment on above: Performed By: #### A 1C #### [facility] [address] [place] [address] Dr. Karey Ordoñez HbA1c (Bld) [Mass fraction] 5.9 % Normal 4.5-6.2 [facility] Comment on above: Performed By: #### A 1C #### [facility] [address] [place] [address] Dr. Karey Ordoñez LIPID PROFILEon 10-01-2021 CHOL-HDL RATIO NORM SEE BELOW Normal [facility] Comment on above: Result Comment: 3.3 - 4.4 LOW RISK 4.4 - 7.1 AVERAGE RISK 7.1 - 11.0 MODERATE RISK >11.0 HIGH RISK Performed By: #### F T4 #### [facility] [address] [place] [address] Dr. Karey Ordoñez Cholesterol [Mass/Vol] 182 mg/dL Normal <=200 [facility] Comment on above: Performed By: #### F T4 #### [facility] [address] [place] [address] Dr. Karey Ordoñez Cholesterol in HDL [Mass/Vol] 52 mg/dL Normal 40-60 [facility] Comment on above: Performed By: #### F T4 #### [facility] [address] [address] [address] Karey Ordoñez Cholesterol in LDL [Mass/Vol] 115.8 mg/dL Normal [facility] Comment on above: Performed By: #### F T4 #### [facility] [address] [place] [address] Dr. Karey Ordoñez Cholesterol.total/Ch olesterol in HDL [Mass ratio] 3.5 {ratio} Normal [facility] Comment on above: Performed By: #### F T4 #### [facility] [address] [place] [address] Dr. Karey Ordoñez HDL NORMAL > or = 60 mg/dl - LO W CARDIOVASCULAR RISK <40 mg/dl - HIGH CARDIOVASCULAR RISK Normal [facility] Comment on above: Performed By: #### F T4 #### [facility] [address] [place] [address] Dr. Karey Ordoñez LDL CALC NORMAL SEE BELOW Normal [facility] Comment on above: Result Comment: <100 mg/dl OPTIMAL 100 - 129 mg/dl NEAR OR ABOVE OPTIMAL 130 - 159 mg/dl BORDERLINE HIGH 160 - 189 mg/dl HIGH >190 mg/dl VERY HIGH Performed By: #### F T4 #### [facility] [address] [place] [address] Dr. Karey Ordoñez Triglyceride [Mass/Vol] 71 mg/dL Normal <=150 [facility] Comment on above: Performed By: #### F T4 #### [facility] [address] [place] [address] Dr. Karey Ordoñez VLDL CALC 14.2 mg/dL Normal [facility] Comment on above: Performed By: #### F T4 #### [facility] [address] [place] [address] Dr. Karey Ordoñez PROF 14(COMP METB)on 022 Albumin [Mass/Vol] 3.9 g/dL Normal 3.4-5.0 [facility] Comment on above: Performed By: #### F T4 #### [facility] [address] [place] [address] Dr. Karey Ordoñez Albumin/Globulin [Mass ratio] 0.9 {ratio} Normal [facility] Comment on above: Performed By: #### F T4 #### [facility] [address] [place] [address] Dr. Karey Ordoñez ALP [Catalytic activity/Vol] 117 U/L Critically high 46-116 [facility] Comment on above: Performed By: #### F T4 #### [facility] [address] [place] [address] Dr. Karey Ordoñez ALT [Catalytic activity/Vol] 25 U/L Normal 14-59 [facility] Comment on above: Performed By: #### F T4 #### [facility] [address] [place] [address] Dr. Karey Ordoñez Anion gap [Moles/Vol] 14.1 mmol/L Normal [facility] Comment on above: Performed By: #### F T4 #### [facility] [address] [place] [address] Dr. Karey Ordoñez AST [Catalytic activity/Vol] 14 U/L Critically low 15-37 [facility] Comment on above: Performed By: #### F T4 #### [facility] [address] [place] [address] Dr. Karey Ordoñez Bilirubin [Mass/Vol] 0.5 mg/dL Normal 0.2-1.0 [facility] Comment on above: Performed By: #### F T4 #### [facility] [address] [place] [address] Dr. Karey Ordoñez Calcium [Mass/Vol] 9.1 mg/dL Normal 8.5-10.1 [facility] Comment on above: Performed By: #### F T4 #### [facility] [address] [place] [address] Dr. Karey Ordoñez Chloride [Moles/Vol] 102 mmol/L Normal 98-107 [facility] Comment on above: Performed By: #### F T4 #### [facility] [address] [address] [address] Karey Ordoñez CO2 [Moles/Vol] 27.7 mmol/L Normal 21.0-32.0 [facility] Comment on above: Performed By: #### F T4 #### [facility] [address] [address] [address] Karey Ordoñez Creatinine [Mass/Vol] 0.76 mg/dL Normal 0.55-1.02 [facility] Comment on above: Performed By: #### F T4 #### [facility] [address] [place] [address] Dr. Karey Ordoñez EGFR-AF COMORAN >60 Normal >=60 [facility] Comment on above: Performed By: #### F T4 #### [facility] [address] [place] [address] Dr. Karey Ordoñez EGFR-NON AF COMORAN >60 Normal >=60 [facility] Comment on above: Performed By: #### F T4 #### [facility] [address] [address] [address] Karey Ordoñez Globulin (S) [Mass/Vol] 4.5 g/dL Normal [facility] Comment on above: Performed By: #### F T4 #### [facility] [address] [place] [address] Dr. Karey Ordoñez Glucose [Mass/Vol] 101 mg/dL Normal 74-106 [facility] Comment on above: Performed By: #### F T4 #### [facility] [address] [place] [address] Dr. Karey Ordoñez Potassium [Moles/Vol] 3.8 mmol/L Normal 3.5-5.1 [facility] Comment on above: Performed By: #### F T4 #### [facility] [address] [place] [address] Dr. Karey Ordoñez Protein [Mass/Vol] 8.4 g/dL Critically high 6.4-8.[address] [facility] Comment on above: Performed By: #### F T4 #### [facility] [address] [address] [address] Karey Ordoñez Sodium [Moles/Vol] 140 mmol/L Normal 136-145 [facility] Comment on above: Performed By: #### F T4 #### [facility] [address] [place], [place] [address] Dr. Karey Ordoñez Urea nitrogen [Mass/Vol] 10.0 mg/dL Normal 7.0-18.0 [facility] Comment on above: Performed By: #### F T4 #### [facility] [address] [address] [address] Karey Ordoñez Urea nitrogen/Creatinine [Mass ratio] 13.2 mg/mg Normal [facility] Comment on above: Performed By: #### F T4 #### [facility] [address] [place] [address] Dr. Karey Ordoñez TSHon 10-01-2021 TSH 2.445 uIU/mL Normal 0.358-3.740 [facility] Comment on above: Performed By: #### F T4 #### [facility] [address] [address] [address] Karey Ordoñez TSH RANGE SEE BELOW Normal [facility] Comment on above: Result Comment: <0.3 4 UIU/ml HYPERTHYROID 0.34-5.60 UIU/ml EUTHYROID >5.60 UIU/ml HYPOTHYROID Performed By: #### F T4 #### [facility] [address] [address] [address] Karey Ordoñez Vital Signs Date Time Vital Sign Value Performing Clinician Faci lity 02-17-2023 08:48-0400 Body weight 126.55 kg Jennifer Marcus MD Work Phone: [facility] 02-17-2023 08:48-0400 Diastolic blood pressure 82 mm[Hg] Jennifer Marcus MD Work Phone: [facility] 02-17-2023 08:48-0400 Heart rate 96 /min Jennifer Marcus MD Work Phone: [facility] 02-17-2023 08:48-0400 SaO2% (BldA) [Mass fraction] 98 % Jennifer Marcus MD Work Phone: [facility] 02-17-2023 08:48-0400 Systolic blood pressure 116 mm[Hg] Jennifer Marcus MD Work Phone: [facility] 06-30-2022 09:45-0500 Body height 160.02 cm Allison Ara Gordonrasheedholz Work Phone: [facility] DO Work Phone: 06-30-2022 09:45-0500 Body mass index (BMI) [Ratio] 49.42 kg/m2 Allison Bullock Heidihholz Work Phone: [facility] DO Work Phone: 06-30-2022 09:45-0500 Body surface area Derived from formula 2.23 m2 Allison Gordonhholz Work Phone: [facility] DO Work Phone: 06-30-2022 09:45-0500 Body weight 126.55 kg Allison Bullock Heidirasheedholz Work Phone: [facility] DO Work Phone: 06-30-2022 09:45-0500 Diastolic blood pressure 80 mm[Hg] Allison Ara Gordonrasheedholz Work Phone: [facility] DO Work Phone: 06-30-2022 09:45-0500 Heart rate 74 /min Allison Ara Gordonhholz Work Phone: [facility] DO Work Phone: 06-30-2022 09:45-0500 Systolic blood pressure 128 mm[Hg] Allisonmich Gorodnhholz Work Phone: [facility] DO Work Phone: Encounters Encounter Date Encounter Type Care Provider Facility Start: 11-02-2023 End: 11-02-2023 ambulatory Patrick Parks MD Facility:[facility] Start: 10-19-2023 End: 10-19-2023 ambulatory Patrick Parks MD Facility:[facility] Start: 10-13-2023 End: 10-13-2023 ambulatory ALLISON VANESSA Not Available Start: 10-12-2023 End: 10-12-2023 ambulatory Patrick Parks MD Facility:[facility] Start: 09-07-2023 End: 09-07-2023 ambulatory Patrick Parks MD Facility:[facility] Start: 08-31-2023 Chart abstracting Dino Garcia [facility] Work Phone: [facility] Comment on above: Genetics- parental t esting Start: 07-30-2023 End: 07-30-2023 ambulatory ALLISON BINHZ Not Available Start: 07-24-2023 End: 07-25-2023 ambulatory TAQUERIA SOLIS [facility] Start: 07-15-2023 Orders Only Taqueria Solis MD Work Phone: [facility] Comment on above: Elevated partial thr omboplastin time (PTT) (Primary Dx) Start: 07-13-2023 End: 07-14-2023 ambulatory JOANN MAHMOOD [facility] Start: 04-30-2023 End: 04-30-2023 ambulatory ALLISON AICHHOLZ Not Available Start: 02-17-2023 End: 02-18-2023 ambulatory JENNIFER MARCUS Facility:[facility] Start: 02-17-2023 End: 02-17-2023 Office outpatient new 60 minutes Jennifer Marcus MD Work Phone: Rheumatology Comment on above: Fibromyalgia (Primar y Dx); Sedimentation rate elevation; Fatigue, unspecified type; Vitamin D deficiency Start: 07-07-2022 Encounter for antibo dy response examination RADIO EQUIPMENT REPAIRER ALLISON MENDEZ [facility] Start: 07-03-2022 End: 07-04-2022 ambulatory RADIO EQUIPMENT REPAIRER ALLISON MENDEZ Facility:[facility] Start: 07-03-2022 End: 07-04-2022 Encounter for antibody response examination LAURO MENDEZ Facility:[facility] Start: 06-30-2022 Office outpatient vi sit 15 minutes Allison Mccluresrinivasa Work Phone: [facility] DO Work Phone: Start: 06-30-[address] [facility] Start: 05-12-2022 End: 05-13-2022 ambulatory LAURO MENDEZ Facility:[facility] Start: 03-04-2022 End: 03-04-2022 ambulatory JESSE HATCH Facility:[facility] Start: 02-06-2022 End: 02-07-2022 ambulatory RADIO EQUIPMENT REPAIRER ALLISON VANESSA Facility:[facility] Start: 01-22-2022 End: 01-23-2022 ambulatory LAURO MENDEZ Facility:[facility] Start: 01-18-2022 End: 01-18-2022 ambulatory LAURO PEREZA VANESSA Facility:[facility] Start: 01-17-2022 End: 01-18-2022 ambulatory RADIO EQUIPMENT REPAIRER ALLISON BINHZ Facility:[facility] Start: 01-15-2022 End: 01-15-2022 ambulatory RADIO EQUIPMENT REPAIRER ALLISON BINHZ Facility:[facility] Start: 12-18-2021 End: 12-19-2021 ambulatory RADIO EQUIPMENT REPAIRER ALLISONMich MCCLUREMARRYLorri Facility:[facility] Start: 12-09-2021 End: 12-10-2021 ambulatory SHAIKH Rasheed LARA Facility:[facility] Start: 10-29-2021 End: 10-30-2021 ambulatory RADIO EQUIPMENT REPAIRER ALLISON SHERMANMARRYLorri Facility:[facility] Start: 10-01-2021 End: 10-02-2021 ambulatory RADIO EQUIPMENT REPAIRER ALLISON BINHZ Facility:[facility] Start: 08-13-2021 End: 10-01-2021 ambulatory RADIO EQUIPMENT REPAIRER ALLISON SHERMANMARRYZ Facility:[facility] Procedures Date Procedure Procedure Detail Performing Clinician Start: 04-14-2023 Adult depression screening assessment Taqueria Solis MD Work Phone: Arthroscopy of knee Allison Bullock Aichholz Work Phone: section Allison Bullock Aic hholz Work Phone: Dilation and curettage Allison Bullock Aichholz Work Phone: Hysterectomy Allison Mcclurehol z Work Phone: NEGATED: Highlighted row has not occurred! Colonoscopy Allison Mcclurehollorri Work Phone: Plan of Treatment Date Care Activity Detail Author Start: 04-14-2024 Adult BMI Screening Adult BMI Screen ing [facility] Start: 04-14-2024 Depression Screening Depression Scre ening [facility] Start: 04-14-2024 Tobacco Screening Tobacco Screening [facility] Start: 04-11-2024 FUV, Provider: Chandler Wilkes, Status: Pen, Time: 11:00 AM FUV, Provider: Chandler Wilkes, Status: Pen, Time: 11:00 AM [facility] DO Work Phone: Start: 01-10-2024 Influenza vaccination Influenz a Vaccine (Season Ended) [facility] Start: 05-11-2023 Behavioral Health Screening Behavioral Health Screening [facility] Start: 02-17-2023 End: 04-19-2023 Cobalamin (Vitamin B12) [Mass/volume] in Serum or Plasma [facility] Work Phone: Comment on above: Expected: 02/17/2023 , Expires: 04/19/2023 Start: 02-17-2023 End: 04-19-2023 IMMUNOGLOBULINS YARI IMMUNOGLOBULINS YARI Lab Routine Sedimentation rate elevation Expected: 02/17/2023, Expires: 04/19/2023 [facility] Work Phone: Comment on above: Expected: 02/17/2023 , Expires: 04/19/2023 Start: 02-17-2023 End: 04-19-2023 PROTEIN ELECTROPHORESIS SERUM W/INTERP PROTEIN ELECTROPHORESIS SERUM W/INTERP Lab Routine Sedimentation rate elevation Expected: 02/17/2023, Expires: 04/19/2023 [facility] Work Phone: Comment on above: Expected: 02/17/2023 , Expires: 04/19/2023 Start: 01-09-2023 Covid-19 Vaccine ( season) Covid-19 Vaccine ( season) [facility] Start: 01-09-2023 Influenza vaccination [facility] Start: 05-11-2022 Depression Assessment Depression Ass essment [facility] Start: 12-25-2013 HPV Testing HPV Testing [facility] Start: 12-25-2013 Screening for malign ant neoplasm of cervix HPV Testing [facility] Start: 12-25-2004 Pap Testing Pap Testing [facility] Start: 12-25-2004 Screening for malign ant neoplasm of cervix Pap Testing [facility] Start: 12-25-2002 DTaP,Tdap and Td Vac cines (1 - Tdap) DTaP,Tdap and Td Vaccines (1 - Tdap) [facility] Start: 12-25-2002 Hepatitis B Vaccine (1 of 3 - 19+ 3-dose series) Hepatitis B Vaccine (1 of 3 - 19+ 3-dose series) [facility] Start: 12-25-2002 Urine microalbumin profile DTaP,Tdap,Td Vaccine (1 - Tdap) [facility] Start: 12-25-2001 Adult BMI Follow Up Plan Adult BMI F ollow Up Plan [facility] Start: 12-25-2001 Hepatitis C Screening Hepatitis C [facility] Start: 12-25-2001 Hepatitis C screening Hepatitis C [facility] Start: 12-25-2001 HIV Screening HIV Screening [facility] Start: 12-25-2001 HIV screening HIV Screening [facility] Start: 1985 Hepatitis B Vaccine (1 of 3 - 3-dose series) Hepatitis B Vaccine (1 of 3 - 3-dose series) [facility] End: 07-14-2024 Inhibitor screen Inhibitor screen Lab Routine Elevated partial thromboplastin time (PTT) 1 Occurrences starting 07/15/2023 until 07/14/2024 [facility] Work Phone: Comment on above: 1 Occurrences starti ng 07/15/2023 until 07/14/2024 SWAB COLLECTION SPECIMEN SWAB CO LLECTION SPECIMEN Lab Routine Family history of autism Ordered: 08/31/2023 [facility] Work Phone: Comment on above: Ordered: 08/31/2023 Immunizations Immunization Date Immunization Notes Care Provider Charla cortez 04-25-2022 influenza virus vacc ine, unspecified formulation Taqueria Solis MD Work Phone: [facility] 09-10-2020 Pfizer-BioNTech COVI D-19 Vacc 30 MCG/0.3ML Intramuscular Suspension Allison Mendez Work Phone: [facility] 250 DO Work Phone: 08-20-2020 Pfizer-BioNTech COVI D-19 Vacc 30 MCG/0.3ML Intramuscular Suspension Allison Mendez Work Phone: [facility] 250 DO Work Phone: Payers Date Payer Category Payer Unknown 2019 Medicaid [id number] 1985 Unknown [id number] 2.16. 840.1.160344.3.579.2.356 1983 Unknown [id number] 2.16.84 0.1.720829.3.579.2.593 1983 Unknown [id number] 2.16.84 0.1.461487.3.579.2.593 1983 Unknown [id number] 2.16.84 0.1.204679.3.579.2.593 1983 Unknown [id number] 2.16.84 0.1.969937.3.579.2.593 1983 Unknown [id number] 2.16.84 0.1.981661.3.579.2.593 1983 Unknown [id number] 2.16.84 0.1.519331.3.579.2.593 1983 Unknown [id number] 2.16.84 0.1.153577.3.579.2.593 1983 Unknown [id number] 2.16.84 0.1.709244.3.579.2.593 1983 Unknown [id number] 2.16.84 0.1.276107.3.579.2.593 1983 Unknown [id number] 2.16.84 0.1.198952.3.579.2.593 1983 Unknown [id number] 2.16.84 0.1.197339.3.579.2.593 1983 Unknown [id number] 2.16.84 0.1.848729.3.579.2.593 1983 Unknown [id number] 2.16.84 0.1.172893.3.579.2.593 1983 Unknown [id number] 2.16.8 40.1.023518.3.579.2.1286 1983 Unknown [id number] 2.16.8 40.1.939771.3.579.2.1286 1983 Unknown [id number] 2.16.84 0.1.199434.3.579.2.1259 1983 Unknown [id number] 2.16.84 0.1.645202.3.579.2.1259 1983 Unknown [id number] 2.16.840 .1.223323.3.579.2.1259 1983 Unknown [id number] 2.16. 840.1.147668.3.579.2.196 1983 Unknown [id number] 2.16. 840.1.851393.3.579.2.196 1983 Unknown [id number] 2.16. 840.1.952139.3.579.2.196 1983 Unknown [id number] 2.16. 840.1.390753.3.579.2.196 1959 Unknown [id number] Social History Date Type Detail Facility Start: 02-13-2023 End: 02-17-2023 No alcohol use No alcohol use [facility] Comment on above: 1-2 cups coffee brian y; Start: 07-29-2021 End: 02-17-2023 Tobacco smoking status NHIS Never smoked tobacco [facility] Start: 07-29-2021 End: 02-17-2023 Tobacco use and exposure Smokeless tobacco non-user [facility] Start: 02-13-2023 End: 02-17-2023 Tobacco use panel [facility] Adult Depression Screening Assessment 0 [facility] Start: 1985 Sex Assigned At Not on file [facility] Start: 04-14-2023 Alcohol intake Ex-drinker (finding) [facility] Progress note 08-31-2023 Note Date & Type Note Facility 08-31-2023 Note HNO ID: [id number] Author: DINO SELLERS LGC Service: ? Author [...] to her home address. Dino Sellers MS, [facility] Licensed Genetic Counselor [facility] History of Present illness Narrative [...] to her home address. Dino Sellers MS, [facility] Licensed Genetic Counselor documented in this encounter [facility] Progress note 02-17-2023 Note Date & Type Note Facility 02-17-2023 Note HNO ID: [id number] Author: Jennifer Marcus MD Service: ? Author Type: Physician Type: Progress Notes Filed: 02/17/2023 10:02 AM Note Text: Rheumatology Clinic Date of Service: 02/17/2023 Patient: Denisha Velasco Medical Record: [id number] Last Rheumatology visit: None at [facility] History of Present Illness Denisha Velasco [...] each day a (more content not included)... [facility] Instructions 02-17-2023 Patient Instructions Note Date & Type Note Facility 02-17-2023 Instructions Jennifer Marcus MD - 02/17/2023 9:27 AM EDT [...] and/or non-rheumatologic conditions. A meta-analysis from the [facility] in [place] suggested that concomitant fibromyalgia is common in [...] [facility], PhD, of the [facility] in [place], and colleagues. The cornerstones of therapy for [...] benefit from relaxation techniques such as yoga, roverto chi, acupuncture, or biofeedback to help deal [...] - Relaxation techniques / mindfulness / yoga /Roverto Chi / Qi Gong - Improvement of sleep hygiene - Appropriately address depression / anxiety with SNRIs - Can use Gabapentin and Tricyclics for symptomatic benefit - Occupational therapy evaluation for desensitization therapy. For additional information please visit the following excellent resources that also outlines the management guidelines of fibromyalgia: (1) [email or web address]://[email or web address].org/I-Am-A/Patient- Caregiver/Diseases-Conditions/Fibromyalgia (2) [email or web address] documented in this encounter [facility] History of Present illness Narrative 02-17-2023 Jennifer Marcus MD - 02/17/2023 8:49 AM EDT Note Date & Type Note Facility 02-17-2023 History of Presen t illness Narrative Images from the original note were not included. Rheumatology Clinic Date of Service: 02/17/2023 Patient: Denisha Velasco Medical Record: [id number] Last Rheumatology visit: None at [facility] History of Present Illness Denisha Velasco [...] which included preparing to see the patient, [id number] patient care, completing clinical documentation, obtaining and/or reviewing separately obtained history, performing a medically appropriate examination, and counseling and educating the patient/family/caregiver. Jennifer Marcus MD Rheumatology Date: February 17, 2023 Time: 8:50 AM documented in this encounter [facility] Evaluation note Note Date & Type Note Facility Evaluation note Diagnosis Fibromyalgia- Primary Mylagia and myositis, unspecified Sedimentation rate elevation Elevated sedimentation rate Fatigue, unspecified type Vitamin D deficiency Unspecified vitamin D deficiency documented in this encounter [facility] Evaluation note Note Date & Type Note Facility Evaluation note Diagnosis Elevated partial thromboplastin time (PTT)- Primary Abnormal coagulation profile documented in this encounter [facility] Evaluation note Note Date & Type Note Facility Evaluation note Diagnosis Family history of autism- Primary Family history of psychiatric condition documented in this encounter [facility] History of Present illness Narrative Note [...] of doing it at her young age. -[facility] DO Work Phone: Instructions Note Date & Type Note Facility Instructions Not on filedocumented in this en counter [facility] Summary Purpose Family History No Family [...] section and content) DATE CREATED AUTHOR 06/30/2022 [facility] DATE CREATED AUTHOR AUTHOR'S ORGANIZ ATION 07/01/2022 [employer] DATE CREATED AUTHOR AUTHOR'S ORGANIZ ATION 07/08/2022 [facility] DATE CREATED AUTHOR AUTHOR'S ORGANIZ ATION 08/01/2023 [facility] DATE CREATED AUTHOR AUTHOR'S ORGANIZ ATION 08/31/2023 [facility] DATE CREATED AUTHOR AUTHOR'S ORGANIZ ATION 10/14/2023 [facility] DATE CREATED AUTHOR AUTHOR'S ORGANIZ ATION 11/04/2023 [facility] Source Comments (unrecognize d section and content) In the event this informatio n is protected by the Federal Confidentiality of Alcohol and Drug Abuse Patient Records regulations: The Federal rules restrict any use of the information to criminally investigate or prosecute any alcohol or drug abuse patient[facility] the event this information is protected by the Federal Confidentiality of Alcohol and Drug Abuse Patient Records regulations: The Federal rules restrict any use of the information to criminally investigate or prosecute any alcohol or drug abuse patient.[facility] Reason for Visit (unrecogniz ed section and content) Reason Comments Consult Reason Comments Genetics- parental testing Care Teams (unrecognized sec tion and content) Reflexologist Relationship Specialty Start Date End Date Allison Mendez, SPECIFICATION MANAGER-RADIO EQUIPMENT REPAIRER [address] [place] [address] PCP - General Nurse Practitioner 04/14/23 FOR [...] BE BASED ON THE PRIMARY CLINICAL RECORDS. [employer] provides no warranty or guarantee of the accuracy or completeness of information in this document.
[2023-12-01 10:49] LABS: Alanine Aminotransferase 20 U/L (14-59); Albumin Globulin Ratio 0.9; Albumin Level 3.7 g/dL (3.4-5.0); Alkaline Phosphatase 160 U/L (46-116); Aspartate Amino Transferase 14 U/L (15-37); Bilirubin Direct 0.1 mg/dL (0.0-0.2); Bilirubin Total 0.5 mg/dL (0.2-1.0); Gamma Glutamyl Transpeptidase 14 U/L (8-55); Total Protein 7.7 g/dL (6.4-8.2)
== END 2023-12-01 09:25 | disposition home or self-care (01) ==
LOC: LAB 09:25
PROVIDERS: PCP Nurse Practitioner; Visit Provider Nurse Practitioner
DX: R74.8 Abnormal levels of other serum enzymes (principal)
CPT/HCPCS: 36415; 80076; 82977

== ENCOUNTER 2023-12-01 09:42 | Emergency (ER) | payer OTHER, SELFPAY ==
[2023-12-01] VITALS (9 sets, daily range): BP systolic 149; BP diastolic 81; PULSE 70–85; TEMP 36.7; O2SAT 99; BMI 47.8
--- NOTE | 2023-12-01 09:59 | ECG_ITS ---
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
--- OUTSIDE RECORDS SUMMARY | 2023-12-01 10:05 | XMS_ITS | CCD ---
Author Organization [facility] Care Team Providers Care Set Up Operator Tool Name Role Phone Katrin LIMON, Dr. Chandler Pryor Attending Unavailable Katrin LIMON, Dr. Chandler Pryor Referring Unavailable Aichholz, Mrs. Allison Bullock Primary Care Unavailab le VanessaAllison Ara Unavailable Unavailable Unavailable AICHHOLZ, ETHYLBENZENE CONVERTER OPERATOR ALLISON Consulting Unavailable AICHHOLZ, ETHYLBENZENE CONVERTER OPERATOR ALLISON Attending Unavailable AICHHOLZ, ETHYLBENZENE CONVERTER OPERATOR ALLISON Primary Care Unavailable AICHHOLZ, ETHYLBENZENE CONVERTER OPERATOR ALLISON Admitting Unavailable AICHHOLZ, ETHYLBENZENE CONVERTER OPERATOR ALLISON Consulting Unavailable AICHHOLZ, ETHYLBENZENE CONVERTER OPERATOR ALLISON Attending Unavailable AICHHOLZ, ETHYLBENZENE CONVERTER OPERATOR ALLISON Primary Care Unavailable AICHHOLZ, ETHYLBENZENE CONVERTER OPERATOR ALLISON Admitting Unavailable AICHHOLZ, ETHYLBENZENE CONVERTER OPERATOR ALLISON Consulting Unavailable AICHHOLZ, ETHYLBENZENE CONVERTER OPERATOR ALLISON Attending Unavailable AICHHOLZ, ETHYLBENZENE CONVERTER OPERATOR ALLISON Admitting Unavailable AICHHOLZ, ETHYLBENZENE CONVERTER OPERATOR ALLISON Primary Care Unavailable FAWWAD, MEI H Admitting Unavailable AICHHOLZ, ETHYLBENZENE CONVERTER OPERATOR ALLISON Primary Care Unavailable VERO WILSON Consulting Unavailable FAWWAD, MEI H Attending Unavailable FAWWAD, MEI H Consulting Unavailable AICHHOLZ, ETHYLBENZENE CONVERTER OPERATOR ALLISON Consulting Unavailable AICHHOLZ, ETHYLBENZENE CONVERTER OPERATOR ALLISON Attending Unavailable AICHHOLZ, ETHYLBENZENE CONVERTER OPERATOR ALLISON Admitting Unavailable AICHHOLZ, ETHYLBENZENE CONVERTER OPERATOR ALLISON Primary Care Unavailable DR ZINA GREGORY Consulting Unavailable JESSE HATCH Attending Unavailable JESSE HATCH Admitting Unavailable AICHHOLZ, ETHYLBENZENE CONVERTER OPERATOR ALLISON Primary Care Unavailable JESSE HATCH Consulting Unavailable AICHHOLZ, ETHYLBENZENE CONVERTER OPERATOR ALLISON Primary Care Unavailable JESSE HATCH Attending Unavailable JESSE HATCH Admitting Unavailable JESSE HATCH Consulting Unavailable Lali Patel Consulting Unavailable AICHHOLZ, ETHYLBENZENE CONVERTER OPERATOR ALLISON Primary Care Unavailable MILLY, DR VERO De Oliveira Consulting Unavailable PAY ., DR PONCE Attending Unavailable PAY ., DR PONCE Admitting Unavailable PAY ., DR PONCE Consulting Unavailable AICHHOLZ, ETHYLBENZENE CONVERTER OPERATOR ALLISON Admitting Unavailable AICHHOLZ, ETHYLBENZENE CONVERTER OPERATOR ALLISON Attending Unavailable AICHHOLZ, ETHYLBENZENE CONVERTER OPERATOR ALLISON Primary Care Unavailable AICHHOLZ, ETHYLBENZENE CONVERTER OPERATOR ALLISON Attending Unavailable AICHHOLZ, ETHYLBENZENE CONVERTER OPERATOR ALLISON Admitting Unavailable AICHHOLZ, ETHYLBENZENE CONVERTER OPERATOR ALLISON Primary Care Unavailable MILLY, DR VERO De Oliveira Consulting Unavailable AICHHOLZ, ETHYLBENZENE CONVERTER OPERATOR ALLISON Consulting Unavailable AICHHOLZ, ETHYLBENZENE CONVERTER OPERATOR ALLIOSN Primary Care Unavailable BRAXTON, DR VERO De Oliveira Consulting Unavailable FAWWAD, MEI H Attending Unavailable FAWWAD, MEI H Admitting Unavailable FAWWAD, MEI H Consulting Unavailable AICHHOLZ, ETHYLBENZENE CONVERTER OPERATOR ALLISON Admitting Unavailable AICHHOLZ, ETHYLBENZENE CONVERTER OPERATOR ALLISON Primary Care Unavailable AICHHOLZ, ETHYLBENZENE CONVERTER OPERATOR ALLISON Consulting Unavailable AICHHOLZ, ETHYLBENZENE CONVERTER OPERATOR ALLISON Attending Unavailable AICHHOLZ, ETHYLBENZENE CONVERTER OPERATOR ALLISON Admitting Unavailable AICHHOLZ, ETHYLBENZENE CONVERTER OPERATOR ALLISON Primary Care Unavailable AICHHOLZ, ETHYLBENZENE CONVERTER OPERATOR ALLISON Consulting Unavailable AICHHOLZ, ETHYLBENZENE CONVERTER OPERATOR ALLISON Attending Unavailable Unavailable Primary Care Provider Unavailabl e Aichholz PRODUCTION SPECIALIST-ETHYLBENZENE CONVERTER OPERATOR, Allison J Primary Care Provider JOANN MAHMOOD Referring Unavailable AICHHOLZ, ALLISON J Primary Care Unavailable TAQUERIA SOLIS Referring Unavailable AICHHOLZ, ALLISON J Primary Care Unavailable ANGELINE, JENNIFER KAMALES Referring Unavaila ble AICHHOLZ, ALLISON ARA Referring Unavailable [facility] Attending Unavaila ble Unavailable Primary Care Provider [...] CAPS] Drug Allergy 2 Other: See Comments [facility] (1 source) gabapentin Drug Allergy [facility] (3 sources) hydroCHLOROthiaz ney; Translations: [HYDROCHLOROTHIA ZIDE] Drug Allergy 4 [facility] Medications Current Medications Medication Drug Class(es) [...] Start: 07-09-2021 take 1 capsule by mo [facility] every twenty-four hours in the morning verapamiL [...] Comment on above: Take 1 capsule by [facility] every afternoon. Completed/Discontinued Medications Medication Drug [...] 03-04-2022 Episodic Other aftercare (1 source) Other terminologist (current) drug therapy; Translations: [OTH PENITENTIARY CURRENT DRUG THERAPY] Onset: 03-05-2022 Episodic Other aftercare (1 source) senior care (current) use of oral hypoglycemic drugs; Translations: [PENITENTIARY USE ORAL HYPOGLYCEMIC DX] Onset: 01-16-2022 Episodic [...] Coag (Bld) [Time] 42 s High 26-37 [facility] Comment on above: Performed By: #### P INR, 06487-6 #### [facility] ([id number]) [address] [place] [address] #### CMP, FEPR, 2276-4, CBCA #### [facility] ([id number]) [address] [place] [address] aPTT Coag (Bld) [Time] 35 s Normal -37 [facility] Comment on above: Performed By: #### P INR, 77305-9 #### [facility] ([id number]) [address] [place] [address] #### CMP, FEPR, 2276-4, CBCA #### [facility] ([id number]) [address], [address] [place] [address] PT Coag (PPP) [Time] 11.8 s Normal 9.8-13.2 [facility] Comment on above: Performed By: #### P INR, 63055-8 #### [facility] ([id number]) [address] [place] [address] 33499 #### CMP, FEPR, 2276-4, CBCA #### [facility] ([id number]) [address] [place] [address] Coagulation factor IX activi ty actual/normal Coag (PPP) [Relative time]on 07-24-2023 FACTOR 9 ASSAY 134 % act Normal 65-150 [facility] Comment on above: Performed By: #### P INR, 33725-3 #### [facility] ([id number]) [address] [place] [address] 9[address]50 #### CMP, FEPR, 6-4, CBCA #### [facility] ([id number]) [address], [address] [place] [address] Coagulation factor VIII acti vity actual/normal Coag (PPP) [Relative time]on 07-24-2023 FACTOR 8 ASSAY 120 % act Normal 50-150 [facility] Comment on above: Performed By: #### P INR, 99920-8 #### [facility] ([id number]) [address] [place] [address] 91297 #### CMP, FEPR, 6-4, CBCA #### [facility] ([id number]) [address], [address] [place] [address] Coagulation factor XI activi ty actual/normal Coag (PPP) [Relative time]on 07-24-2023 FACTOR 11 ASSAY 153 % act High 65-150 [facility] Comment on above: Performed By: #### P INR, 41968-1 #### [facility] ([id number]) [address] [place] [address] 62463 #### CMP, FEPR, 6-4, CBCA #### [facility] ([id number]) [address], [address] [place] [address] Coagulation factor XII activ ity actual/normal Coag (PPP) [Relative time]on 07-24-2023 FACTOR 12 ASSAY 86 % act Normal 50-150 [facility] Comment on above: Performed By: #### P INR, 15512-2 #### [facility] ([id number]) [address] [place] [address] 09723 #### CMP, FEPR, 6-4, CBCA #### [facility] ([id number]) [address], [address] [place] [address] [facility] ORDERon 024 TEST NAME [id number] VWF COLLAGEN III BINDING NACIT PLASMA Normal [facility] Comment on above: Result Comment: Maria Alejandra ected on 07/14 AT 1430: Previously reported as [id number] VWF COLLAGEN III BINDING Performed By: #### P INR, 59508-7 #### [facility] ([id number]) [address] [place] [address] 39317 #### CMP, FEPR, 6-4, CBCA #### [facility] ([id number]) [address], [address] [place] [address] TEST NAME [id number] VWF GPIBM ACTIVITY NACIT PLASMA Normal [facility] Comment on above: Performed By: #### P INR, 47333-6 #### [facility] ([id number]) [address] [place] [address] 80902 #### CMP, FEPR, 6-4, CBCA #### [facility] ([id number]) [address], [address] [place] [address] TEST RESULT SEE NOTE Normal [facility] Comment on above: Result Comment: NOTE Test name Result Flag Units RefIntvl VWF Collagen III Binding 110 IU/dL 50-203 For additional information, please visit [email or web address] This test was developed and its performance characteristics determined by [facility]. It has not been cleared or approved by the [place] Food and Drug Administration. This test is used for clinical purposes. It should not be regarded as investigational or for research. This laboratory is certified under the Clinical Laboratory Improvement Amendments (CLIA) as qualified to perform high complexity clinical laboratory testing. Performed by: [facility]. [address] [place] [address] Performed By: #### P INR, 72451-4 #### [facility] ([id number]) [address] [place] [address], [place] [address] #### CMP, FEPR, 2276-4, CBCA #### [facility] ([id number]) [address], [address] [place] [address] Result Comment: NOTE Test name Result Flag Units RefIntvl VWF GPIbM Activity 86 IU/dL 52-180 For additional information, please visit [email or web address] This test was developed and its performance characteristics determined by [facility]. It has not been cleared or approved by the [place] Food and Drug Administration. This test is used for clinical purposes. It should not be regarded as investigational or for research. This laboratory is certified under the Clinical Laboratory Improvement Amendments (CLIA) as qualified to perform high complexity clinical laboratory testing. Performed by: [facility]. [address] [address] CBC AND AUTO DIFFon 07-13-19 ABSOLUTE BASOPHIL 0.0 X10E9/L Normal 0.0-0.2 [facility] Comment on above: Performed By: #### P INR, 52883-7 #### [facility] ([id number]) [address] [place] [address] #### CMP, FEPR, 2276-4, CBCA #### [facility] ([id number]) [address] [place] [address], [address] [place] [address] ABSOLUTE NEUTROPHIL 5.0 X10E9/L Normal 1.5-6.6 [facility] Comment on above: Performed By: #### P INR, 59376-6 #### [facility] ([id number]) [address] [place] [address] 94621 #### CMP, FEPR, 2276-4, CBCA #### [facility] ([id number]) [address] [place] [address], [address] [place] [address] Basophils/100 WBC (Bld) 0.3 % Normal [facility] Comment on above: Performed By: #### P INR, 75007-5 #### [facility] ([id number]) [address] [place] [address] #### CMP, FEPR, 2276-4, CBCA #### [facility] ([id number]) [address] [place] [address] Eosinophils (Bld) [#/Vol] 0.1 10*3/uL Normal 0.0-0.4 [facility] Comment on above: Performed By: #### P INR, 56106-9 #### [facility] ([id number]) [address] [place] [address] 42063 #### CMP, FEPR, 2276-4, CBCA #### [facility] ([id number]) [address] [address] Eosinophils/100 WBC (Bld) 1.3 % Normal [facility] Comment on above: Performed By: #### P INR, 27639-6 #### [facility] ([id number]) [address] [place] [address] 16759 #### CMP, FEPR, 2276-4, CBCA #### [facility] ([id number]) [address] [facility] [facility] [address] [place] [address] Erythrocyte distribution width (RBC) [Ratio] 13.2 % Normal 11.5-15.0 [facility] Comment on above: Performed By: #### P INR, 33839-2 #### [facility] ([id number]) [address] [place] [address] 69104 #### CMP, FEPR, 2276-4, CBCA #### [facility] ([id number]) [address] [place] [address] Hematocrit (Bld) [Volume fraction] 42.4 % Normal 35-47 [facility] Comment on above: Performed By: #### P INR, 22669-5 #### [facility] ([id number]) [address] [place] [address]605 #### CMP, FEPR, 2276-4, CBCA #### [facility] ([id number]) [address] [place] [address] [address] [place] [address] Hemoglobin (Bld) [Mass/Vol] 13.9 g/dL Normal 11.7-15.5 [facility] Comment on above: Performed By: #### P INR, 79726-2 #### [facility] ([id number]) [address] [place] [address] 58516 #### CMP, FEPR, 2276-4, CBCA #### [facility] ([id number]) [address] [facility], [address] [place] [address] Lymphocytes (Bld) [#/Vol] 2.0 10*3/uL Normal 1.0-3.5 [facility] Comment on above: Performed By: #### P INR, 02502-2 #### [facility] ([id number]) [address] [place] [address] 78009 #### CMP, FEPR, 2276-4, CBCA #### [facility] ([id number]) [address] [place] [address], [address] [place] [address] Lymphocytes/100 WBC (Bld) 26.7 % Normal [facility] Comment on above: Performed By: #### P INR, 14952-5 #### [facility] ([id number]) [address] [place] [address] 63947 #### CMP, FEPR, 2276-4, CBCA #### [facility] ([id number]) [address] [place] [address], [address] [place] [address] MCH (RBC) [Entitic mass] 29.6 pg Normal 27-34 [facility] Comment on above: Performed By: #### P INR, 30220-7 #### [facility] ([id number]) [address] [place] [address] 75567 #### CMP, FEPR, 2276-4, CBCA #### [facility] ([id number]) [address] [place] [address], [address] [place] [address] MCHC (RBC) [Mass/Vol] 32.8 g/dL Normal 32-36 [facility] Comment on above: Performed By: #### P INR, 64469-7 #### [facility] ([id number]) [address] [place] [address]48 #### CMP, FEPR, 2276-4, CBCA #### [facility] ([id number]) [address], [address] [place] [address] MCV (RBC) [Entitic vol] 90 fL Normal 80-100 [facility] Comment on above: Performed By: #### P INR, 14893-6 #### [facility] ([id number]) [address] [place] [address] 8[address]01 #### CMP, FEPR, 6-4, CBCA #### [facility] ([id number]) [address] [place] [address] Monocytes (Bld) [#/Vol] 0.5 10*3/uL Normal 0-0.9 [facility] Comment on above: Performed By: #### P INR, 45268-4 #### [facility] ([id number]) [address] [place] [address] 79493 #### CMP, FEPR, 2276-4, CBCA #### [facility] ([id number]) [address], [address] [place] [address] Monocytes/100 WBC (Bld) 6.9 % Normal [facility] Comment on above: Performed By: #### P INR, 15153-9 #### [facility] ([id number]) [address] [place] [address] 78483 #### CMP, FEPR, 2276-4, CBCA #### [facility] ([id number]) [address], [address] [place] [address] Neutrophils/100 WBC (Bld) 64.8 % Normal [facility] Comment on above: Performed By: #### P INR, 94036-5 #### [facility] ([id number]) [address] [place] [address] #### CMP, FEPR, 2276-4, CBCA #### [facility] ([id number]) [address] [facility], [address] [place] [address] Platelet mean volume (Bld) [Entitic vol] 11.5 fL Normal 7-12 [facility] Comment on above: Performed By: #### P INR, 69418-1 #### [facility] ([id number]) [address] [place] [address] 25918 #### CMP, FEPR, 2276-4, CBCA #### [facility] ([id number]) [address] [place] [address], [address] [place] [address] Platelets (Bld) [#/Vol] 205 10*3/uL Normal 150-450 [facility] Comment on above: Performed By: #### P INR, 50399-7 #### [facility] ([id number]) [address] [place] [address] 269[address] #### CMP, FEPR, 2276-4, CBCA #### [facility] ([id number]) [address] [facility], [address] [place] [address] RBC COUNT 4.70 X10E12/L Normal 3.80-5.20 [facility] Comment on above: Performed By: #### P INR, 18441-1 #### [facility] ([id number]) [address] [place] [address] 87964 #### CMP, FEPR, 2276-4, CBCA #### [facility] ([id number]) [address] [place] [address] WBC (Bld) [#/Vol] 7.7 10*3/uL Normal 4.0-11.0 [facility] Comment on above: Performed By: #### P INR, 62907-7 #### [facility] ([id number]) [address] [place] [address]146 #### CMP, FEPR, 2276-4, CBCA #### [facility] ([id number]) [address], [address] [place] [address] COMPREHENSIVE METABOLIC PANE Drew 07-13-2023 Albumin [Mass/Vol] 4.6 g/dL Normal 3.2-5.3 [facility] Comment on above: Performed By: #### P INR, 32471-7 #### [facility] ([id number]) [address] [place] [address]190 #### CMP, FEPR, 2276-4, CBCA #### [facility] ([id number]) [address], [address] [place] [address] ALP [Catalytic activity/Vol] 118 U/L Normal 39-130 [facility] Comment on above: Performed By: #### P INR, 78640-4 #### [facility] ([id number]) [address] [place] [address] 42691 #### CMP, FEPR, 6-4, CBCA #### [facility] ([id number]) [address], [address] [place] [address] ALT [Catalytic activity/Vol] 12 U/L Normal 0-31 [facility] Comment on above: Performed By: #### P INR, 01313-9 #### [facility] ([id number]) [address] [place] [address] 25662 #### CMP, FEPR, 2276-4, CBCA #### [facility] ([id number]) [address], [address] [place] [address] Anion gap [Moles/Vol] 10 mmol/L Normal 5-15 [facility] Comment on above: Performed By: #### P INR, 21473-1 #### [facility] ([id number]) [address] [place] [address] 72195 #### CMP, FEPR, 2276-4, CBCA #### [facility] ([id number]) [address], [address] [place] [address] AST [Catalytic activity/Vol] 13 U/L Normal 0-41 [facility] Comment on above: Performed By: #### P INR, 78010-9 #### [facility] ([id number]) [address] [place] [address] 40406 #### CMP, FEPR, 2276-4, CBCA #### [facility] ([id number]) [address], [address] [place] [address] Bilirubin [Mass/Vol] 0.4 mg/dL Normal 0.3-1.2 [facility] Comment on above: Performed By: #### P INR, 64279-9 #### [facility] ([id number]) [address] [place] [address]18 #### CMP, FEPR, 6-4, CBCA #### [facility] ([id number]) [address], [address] [place] [address] Calcium [Mass/Vol] 9.8 mg/dL Normal 8.5-10.5 [facility] Comment on above: Performed By: #### P INR, 28174-0 #### [facility] ([id number]) [address] [place] [address] 58429 #### CMP, FEPR, 6-4, CBCA #### [facility] ([id number]) [address], [address] [place] [address] Chloride [Moles/Vol] 105 mmol/L Normal 98-109 [facility] Comment on above: Performed By: #### P INR, 51414-1 #### [facility] ([id number]) [address] [place] [address] 27088 #### CMP, FEPR, 2276-4, CBCA #### [facility] ([id number]) [address], [address] [place] [address] CO2 [Moles/Vol] 27 mmol/L Normal 22-32 [facility] Comment on above: Performed By: #### P INR, 72594-8 #### [facility] ([id number]) [address] [place] [address] 67614 #### CMP, FEPR, 6-4, CBCA #### [facility] ([id number]) [address], [address] [place] [address] Creatinine [Mass/Vol] 0.75 mg/dL Normal 0.40-1.00 [facility] Comment on above: Result Comment: METH OD TRACEABLE TO IDMS STANDARD Performed By: #### P INR, 47628-6 #### [facility] ([id number]) [address] [place] [address] 73196 #### CMP, FEPR, 6-4, CBCA #### [facility] ([id number]) [address], [address] [place] [address] eGFR (CKD-EPI) NON-RACE DEPENDENT >90 Normal >59 [facility] Comment on above: Result Comment: Reported eGFR is based on the CKD-EPI 2021 equation that does not use a race coefficient. Performed By: #### P INR, 84001-4 #### [facility] ([id number]) [address] [place] [address] 67811 #### CMP, FEPR, 2276-4, CBCA #### [facility] ([id number]) [address], [address] [place] [address] Glucose [Mass/Vol] 87 mg/dL Normal 65-99 [facility] Comment on above: Performed By: #### P INR, 85057-5 #### [facility] ([id number]) [address] [place] [address] 17996 #### CMP, FEPR, 2276-4, CBCA #### [facility] ([id number]) [address], [address] [place] [address] Potassium [Moles/Vol] 4.0 mmol/L Normal 3.5-5.0 [facility] Comment on above: Performed By: #### P INR, 39987-2 #### [facility] ([id number]) [address] [place] [address] 51477 #### CMP, FEPR, 2276-4, CBCA #### [facility] ([id number]) [address], [address] [place] [address] Protein [Mass/Vol] 7.7 g/dL Normal 6.0-8.0 [facility] Comment on above: Performed By: #### P INR, 69081-1 #### [facility] ([id number]) [address] [place] [address] 89244 #### CMP, FEPR, 2276-4, CBCA #### [facility] ([id number]) [address], [address] [place] [address] Sodium [Moles/Vol] 142 mmol/L Normal 134-146 [facility] Comment on above: Performed By: #### P INR, 88796-4 #### [facility] ([id number]) [address] [place] [address] #### CMP, FEPR, 2276-4, CBCA #### [facility] ([id number]) [address], [address] [place] [address] Urea nitrogen [Mass/Vol] 13 mg/dL Normal 5-23 [facility] Comment on above: Performed By: #### P INR, 67502-8 #### [facility] ([id number]) [address] [place] [address] #### CMP, FEPR, 6-4, CBCA #### [facility] ([id number]) [address], [address] [place] [address] Coagulation factor VIII acti vity actual/normal Coag (PPP) [Relative time]on 07-13-2023 FACTOR 8 ASSAY 97 % act Normal 50-150 [facility] Comment on above: Performed By: #### P INR, 95607-7 #### [facility] ([id number]) [address] [place] [address] #### CMP, FEPR, 2275-4, CBCA #### [facility] ([id number]) [address], [address] [place] [address] FERRITINon 07-13-2023 Ferritin [Mass/Vol] 60 ng/mL Normal 11-307 [facility] Comment on above: Performed By: #### P INR, 23338-4 #### [facility] ([id number]) [address] [place] [address] #### CMP, FEPR, 2275-4, CBCA #### [facility] ([id number]) [address], [address] [place] [address] IRON PROFILEon 07-13-2023 Iron [Mass/Vol] 66 ug/dL Normal 50-170 [facility] Comment on above: Performed By: #### P INR, 80357-2 #### [facility] ([id number]) [address] [place] [address] #### CMP, FEPR, 6-4, CBCA #### [facility] ([id number]) [address], [address] [place] [address] IRON BINDING 318 ug/dL Normal 250-425 [facility] Comment on above: Performed By: #### P INR, 18260-2 #### [facility] ([id number]) [address] [place] [address] #### CMP, FEPR, 2276-4, CBCA #### [facility] ([id number]) [address] [place] [address] IRON SATURATION 21 % SATURATION Normal 15-50 [facility] Comment on above: Performed By: #### P INR, 15636-3 #### [facility] ([id number]) [address] [place] [address] #### CMP, FEPR, 2276-4, CBCA #### [facility] ([id number]) [address], [address] [place] [address] Laboratory comment Aftab (Repo rt)on 07-13-2023 UNLISTED LAB TEST Sent to reference lab Normal [facility] Comment on above: Performed By: #### A GO #### [facility] ([id number]) [address] [place] [address] Performed By: #### P INR, 85837-6 #### [facility] ([id number]) [address] [place] [address] 20205 #### CMP, FEPR, 2276-4, CBCA #### [facility] ([id number]) [address] [place] [address] PROTIME AND INRon 07-13-2023 INR Coag (PPP) [Relative time] 1.0 {INR} Normal 0.8-1.1 [facility] Comment on above: Performed By: #### P INR, 57343-7 #### [facility] ([id number]) [address] [place] [address] #### CMP, FEPR, 2276-4, CBCA #### [facility] ([id number]) [address], [address] [place] [address] PT Coag (PPP) [Time] 12.0 s Normal 9.8-13.2 [facility] Comment on above: Result Comment: NEW REFERENCE RANGE Performed By: #### P INR, 10766-0 #### [facility] ([id number]) [address] [place] [address] #### CMP, FEPR, 2276-4, CBCA #### [facility] ([id number]) [address] [place] [address] aPTT Coag (PPP) [Time]on aPTT Coag (Bld) [Time] 46 s High 26-37 [facility] Comment on above: Result Comment: NEW REFERENCE RANGE Performed By: #### P INR, 85175-9 #### [facility] ([id number]) [address] [place] [address] #### CMP, FEPR, 2276-4, CBCA #### [facility] ([id number]) [address] [place] [address] vWf Ag IA Qn (PPP)on 024 [employer] 118 % Normal 50-150 [facility] Comment on above: Result Comment: It has [...] 69:1691, 1989 Performed By: #### P INR, 99384-6 #### [facility] ([id number]) [address] [place] [address] #### CMP, FEPR, 2276-4, CBCA #### [facility] ([id number]) [address], [address] [place] [address] vWf.activity actual/normal I A (PPP) [Relative ratio]on 07-13-2023 von Willebrand Factor Activity 88 % Normal 50-200 [facility] Comment on above: Performed By: #### P INR, 01801-5 #### [facility] ([id number]) [address] [place] [address] #### CMP, FEPR, 2276-4, CBCA #### [facility] ([id number]) [address] [place] [address], [address] [place] [address] 25(OH)D[address] [facility] 2022 25-hydroxyvitamin D3 [Mass/Vol] 14.6 ng/mL Low 31.0-80.0 [facility] Comment on above: Order Comment: Speci men Type: BLOOD SPECIMEN Ordering Facility: [facility] Address: [address] [place] [address] Result Comment: Clas sification of 25 [place] Vitamin D status: Deficiency/Insufficiency: < or = 30 ng/ml. Sufficiency/Optimal Levels: 31-80 ng/mL Toxicity: > 100 ng/mL. Test performed by chemiluminescent immunoassay. Performed By: #### 1 989-3 #### [facility] CLIA [id number] [address] [facility] [place] [address] [place] CBC W Auto Differential pane l (Bld)on 02-17-2023 Basophils (Bld) [#/Vol] 0.03 10*3/uL <0.11 k/uL [facility] Basophils/100 WBC (Bld) 0.3 % [facility] Differential cell count method Nom (Bld) Auto [facility] Eosinophils (Bld) [#/Vol] 0.12 10*3/uL <0.46 k/uL [facility] Eosinophils/100 WBC (Bld) 1.2 % [facility] Erythrocyte distribution width (RBC) [Ratio] 12.7 % 11.5 - 15.0 % [facility] Hematocrit (Bld) [Volume fraction] 44.5 % 36.0 - 46.0 % [facility] Hemoglobin (Bld) [Mass/Vol] 14.4 g/dL 11.5 - 15.5 g/dL [facility] Immature granulocytes (Bld) [#/Vol] 0.03 10*3/uL <0.10 k/uL [facility] Immature granulocytes/100 WBC (Bld) 0.3 % [facility] Lymphocytes (Bld) [#/Vol] 1.93 10*3/uL 1.00 - 4.00 k/uL [facility] Lymphocytes/100 WBC (Bld) 19.7 % [facility] MCH (RBC) [Entitic mass] 30.3 pg 26.0 - 34.0 pg [facility] MCHC (RBC) [Mass/Vol] 32.4 g/dL 30.5 - 36.0 g/dL [facility] MCV (RBC) [Entitic vol] 93.5 fL 80.0 - 100.0 fL [facility] Monocytes (Bld) [#/Vol] 0.78 10*3/uL <0.87 k/uL [facility] Monocytes/100 WBC (Bld) 7.9 % [facility] Neutrophils (Bld) [#/Vol] 6.93 10*3/uL 1.45 - 7.50 k/uL [facility] Neutrophils/100 WBC (Bld) 70.6 % [facility] Nucleated RBC (Bld) [#/Vol] <0.01 k/uL [facility] Nucleated RBC/100 WBC (Bld) [Ratio] 0.0 /100 WBC [facility] Platelet mean volume (Bld) [Entitic vol] 13.2 fL High 9.0 - 12.7 fL [facility] Platelets (Bld) [#/Vol] 245 10*3/uL 150 - 400 k/uL [facility] RBC (Bld) [#/Vol] 4.76 10*6/uL 3.90 - 5.2 0 m/uL [facility] WBC (Bld) [#/Vol] 9.82 10*3/uL 3.70 - 11. 00 k/uL [facility] Basophils (Bld) [#/Vol] 0.03 10*3/uL Normal <0.11 [facility] Comment on above: Order Comment: Speci men Type: BLOOD SPECIMEN Ordering Facility: [facility] Address: [address] [place] [address] Performed By: #### 5 7021-8 #### [facility] CLIA [id number] [address] [place] [address] [place] Basophils/100 WBC (Bld) 0.3 % Normal [facility] Comment on above: Order Comment: Speci men Type: BLOOD SPECIMEN Ordering Facility: [facility] Address: [address] [place] [address] Performed By: #### 5 7021-8 #### [facility] CLIA [id number] [address] [place] [address] [place] Differential cell count method Nom (Bld) Auto Normal [facility] Comment on above: Order Comment: Speci men Type: BLOOD SPECIMEN Ordering Facility: [facility] Address: [address] [place] [address] Performed By: #### 5 7021-8 #### [facility] CLIA [id number] [address] [place] [address] [place] Eosinophils (Bld) [#/Vol] 0.12 10*3/uL Normal <0.46 [facility] Comment on above: Order Comment: Speci men Type: BLOOD SPECIMEN Ordering Facility: [facility] Address: [address] [place] [address] Performed By: #### 5 7021-8 #### [facility] CLIA [id number] [address] [place] [address] [place] Eosinophils/100 WBC (Bld) 1.2 % Normal [facility] Comment on above: Order Comment: Speci men Type: BLOOD SPECIMEN Ordering Facility: [facility] Address: [address] [place] [address] Performed By: #### 5 7021-8 #### [facility] CLIA [id number] [address] [place] [address] [place] Erythrocyte distribution width (RBC) [Ratio] 12.7 % Normal 11.5-15.0 [facility] Comment on above: Order Comment: Speci men Type: BLOOD SPECIMEN Ordering Facility: [facility] Address: [address] [place] [address] Performed By: #### 5 7021-8 #### [facility] CLIA [id number] [address] [place] [address] [place] Hematocrit (Bld) [Volume fraction] 44.5 % Normal 36.0-46.0 [facility] Comment on above: Order Comment: Speci men Type: BLOOD SPECIMEN Ordering Facility: [facility] Address: [address] [place] [address] Performed By: #### 5 7021-8 #### [facility] CLIA [id number] [address] [place] [address] [place] Hemoglobin (Bld) [Mass/Vol] 14.4 g/dL Normal 11.5-15.5 [facility] Comment on above: Order Comment: Speci men Type: BLOOD SPECIMEN Ordering Facility: [facility] Address: [address] [place] [address] Performed By: #### 5 7021-8 #### [facility] CLIA [id number] [address] [place] [address] [place] Immature granulocytes (Bld) [#/Vol] 0.03 10*3/uL Normal <0.10 [facility] Comment on above: Order Comment: Speci men Type: BLOOD SPECIMEN Ordering Facility: [facility] Address: [address] [place] [address] Performed By: #### 5 7021-8 #### [facility] CLIA [id number] [address] [place] [address] [place] Immature granulocytes/100 WBC (Bld) 0.3 % Normal [facility] Comment on above: Order Comment: Speci men Type: BLOOD SPECIMEN Ordering Facility: [facility] Address: [address] [place] [address] Performed By: #### 5 7021-8 #### [facility] CLIA [id number] [address] [place] [address] [place] Lymphocytes (Bld) [#/Vol] 1.93 10*3/uL Normal 1.00-4.00 [facility] Comment on above: Order Comment: Speci men Type: BLOOD SPECIMEN Ordering Facility: [facility] Address: [address] [place] [address] Performed By: #### 5 7021-8 #### [facility] CLIA [id number] [address] [place] [address] [place] Lymphocytes/100 WBC (Bld) 19.7 % Normal [facility] Comment on above: Order Comment: Speci men Type: BLOOD SPECIMEN Ordering Facility: [facility] Address: [address] [place] [address] Performed By: #### 5 7021-8 #### [facility] CLIA [id number] [address] [place] [address] [place] MCH (RBC) [Entitic mass] 30.3 pg Normal 26.0-34.0 [facility] Comment on above: Order Comment: Speci men Type: BLOOD SPECIMEN Ordering Facility: [facility] Address: [address] [place] [address] Performed By: #### 5 7021-8 #### [facility] CLIA [id number] [address] [place], [place] [address] [place] MCHC (RBC) [Mass/Vol] 32.4 g/dL Normal 30.5-36.0 [facility] Comment on above: Order Comment: Speci men Type: BLOOD SPECIMEN Ordering Facility: [facility] Address: [address] [place] [address] Performed By: #### 5 7021-8 #### [facility] CLIA [id number] [address] [place] [address] [place] MCV (RBC) [Entitic vol] 93.5 fL Normal 80.0-100.0 [facility] Comment on above: Order Comment: Speci men Type: BLOOD SPECIMEN Ordering Facility: [facility] Address: [address] [place] [address] Performed By: #### 5 7021-8 #### [facility] CLIA [id number] [address] [place] [address] [place] Monocytes (Bld) [#/Vol] 0.78 10*3/uL Normal <0.87 [facility] Comment on above: Order Comment: Speci men Type: BLOOD SPECIMEN Ordering Facility: [facility] Address: [address] [place] [address] Performed By: #### 5 7021-8 #### [facility] CLIA [id number] [address] [place] [address] [place] Monocytes/100 WBC (Bld) 7.9 % Normal [facility] Comment on above: Order Comment: Speci men Type: BLOOD SPECIMEN Ordering Facility: [facility] Address: [address] [place] [address] Performed By: #### 5 7021-8 #### [facility] CLIA [id number] [address] [place] [address] [place] Neutrophils (Bld) [#/Vol] 6.93 10*3/uL Normal 1.45-7.50 [facility] Comment on above: Order Comment: Speci men Type: BLOOD SPECIMEN Ordering Facility: [facility] Address: [address] [place] [address] Performed By: #### 5 7021-8 #### [facility] CLIA [id number] [address] [place] [address] [place] Neutrophils/100 WBC (Bld) 70.6 % Normal [facility] Comment on above: Order Comment: Speci men Type: BLOOD SPECIMEN Ordering Facility: [facility] Address: [address] [place] [address] Performed By: #### 5 7021-8 #### [facility] CLIA [id number] [address] [place] [address] [place] Nucleated RBC (Bld) [#/Vol] 10*3/uL Normal <0.01 [facility] Comment on above: Order Comment: Speci men Type: BLOOD SPECIMEN Ordering Facility: [facility] Address: [address] [place] [address] Performed By: #### 5 7021-8 #### [facility] CLIA [id number] [address] [place] [address] [place] Nucleated RBC/100 WBC (Bld) [Ratio] 0.0 /100 WBC Normal [facility] Comment on above: Order Comment: Speci men Type: BLOOD SPECIMEN Ordering Facility: [facility] Address: [address] [place] [address] Performed By: #### 5 7021-8 #### [facility] CLIA [id number] [address] [place] [address] [place] Platelet mean volume (Bld) [Entitic vol] 13.2 fL High 9.0-12.7 [facility] Comment on above: Order Comment: Speci men Type: BLOOD SPECIMEN Ordering Facility: [facility] Address: [address] [place] [address] Performed By: #### 5 7021-8 #### [facility] CLIA [id number] [address] [place] [address] [place] Platelets (Bld) [#/Vol] 245 10*3/uL Normal 150-400 [facility] Comment on above: Order Comment: Shani kay Type: BLOOD SPECIMEN Ordering Facility: [facility] Address: [address] [place] [address] Result Comment: Resu lts checked and verified.No clot detected. Performed By: #### 5 7021-8 #### [facility] CLIA [id number] [address] [place] [address] [place] RBC (Bld) [#/Vol] 4.76 10*6/uL Normal 3.90-5.20 [facility] Comment on above: Order Comment: Shani kay Type: BLOOD SPECIMEN Ordering Facility: [facility] Address: [address] [place] [address] Performed By: #### 5 7021-8 #### [facility] CLIA [id number] [address] [place] [address] [place] WBC (Bld) [#/Vol] 9.82 10*3/uL Normal 3.70-11.00 [facility] Comment on above: Order Comment: Shani kay Type: BLOOD SPECIMEN Ordering Facility: [facility] Address: [address] [place] [address] Performed By: #### 5 7021-8 #### [facility] CLIA [id number] [address] [place] [address] [place] CNOVon 02-17-2023 CNOV Office Visit (GONSALOULN ) DENISHA VELASCO ([id number]) 1985 F Date Time Provider Department 02/17/23 9:00 AM JENNIFER MARCUS During your visit today, we recorded the following information about you: Pulse Blood pressure Weight 96/minute 116/82 126.6 kg Jennifer Marcus MD 02/17/2023 10:02 AM Signed [facility] Date of Service: 02/17/2023 Patient: Denisha Velasco Medical Record: [id number] Last Rheumatology visit: None at [facility] History of Present Illness Denisha Velasco is [...] other than (more content not included)... Normal [facility] VITAMIN D 25 HYDROXYon 02-17 25-hydroxyvitamin D3 [Mass/Vol] 14.6 ng/mL Low 31.0 - 80.0 ng/mL [facility] Vit B12 SerPl-mCncon 023 Cobalamin (Vitamin B12) [Mass/Vol] 347 pg/mL Normal 232-1245 [facility] Comment on above: Order Comment: Speci men Type: BLOOD SPECIMEN Ordering Facility: [facility] Address: [address] [place] [address] Performed By: #### 2 132-9 #### [facility] CLIA [id number] [address] [facility] SARS-CoV2 IgMon 07-07-2022 Comment Notes Normal [facility] Comment on above: Result Comment: Nega tive results to antibodies against SARS-CoV-2 are generally indicative of non-exposure to virus and lack of longevity of antibody response. Performed By: #### C VDABM #### [facility] [address] [place] [address] Dr. Karey Ordoñez Disclaimer Notes Normal [facility] Comment on above: Result Comment: This is a lab developed test. This test has been validated in accordance with [facility] of Health guidelines and FDA [...] due to past or present infection with kqy-XKJU-PbK-2 coronavirus strains, such as coronavirus HKU1, NL63, OC43, or 229E. Performed By: #### C VDABM #### [facility] [address] [place] [address] Dr. Karey Ordoñez Electronically Signed By Comment Normal [facility] Comment on above: Result Comment: Fernando Scales Performed By: #### C VDABM #### [facility] [address] [place] [address] Dr. Karey Ordoñez Methodology Comment [facility] Comment on above: Result Comment: Chem iluminescence Performed By: #### C VDABM #### [facility] [address] [place] [address] Dr. Karey Ordoñez References Notes Normal [facility] Comment on above: Result Comment: Sheldon Godinez, Sheldon Maria, Roly Bass, Jeffry Smumers, Hola Ordoñez, Dariela Bass., et. al. (2020). Profiling early humoral response to diagnose novel coronavirus disease (COVID-19). Clinical Infectious Diseases. Lorri Mosley et al. (2020) Profile of Specific Antibodies to SARS-CoV-2: The First Report Journal of Infection (2020), doi: https://doi.org/10.1016/j.jinf.2020.03.052 Charan Rodriguez et al. (2020). Antibody responses to SARS-CoV-2 in COVID-19 patients: the perspective application of serological tests in clinical practice. 10.1101/2019.03.18.30959837. Performed By: #### C VDABM #### [facility] [address] [place] [address] Dr. Karey Ordoñez Result Negative [facility] Comment on above: Performed By: #### C VDABM #### [facility] [address] [place] [address] Dr. Karey Ordoñez Value 0.03 COI [facility] Comment on above: Result Comment: <0.8 : Negative 0.8-<1.0: Indeterminate >=1.0: Positive Performed By: #### C VDABM #### [facility] [address] [place] [address] [address] Karey Ordoñez SARS-CoV2 IgGon 07-04-2022 SARS-CoV-2 (COVID-19) IgG IA.rapid Ql (S/P/Bld) >800.0 Normal Neg <13.0 [facility] Comment on above: Performed By: #### C VDIGG #### [facility] [address] [place] [address] [address] Karey Ordoñez SARS-CoV-2 (COVID-19) RNA RUBY+probe Ql (Unsp spec) Positive Normal [facility] Comment on above: Result Comment: Anti bodies against the SARS-CoV-2 spike protein, including the receptor binding domain (RBD) were detected. It is not yet known what level of antibody to SARS-CoV-2 spike protein correlates to immunity against developing symptomatic SARS-CoV-2 disease. This assay was performed using [employer](R) SARS-CoV-2 Trimeric S IgG assay. Performed By: #### C VDIGG #### [facility] [address] [place] [address] Dr. Karey Ordoñez Office Visit (Cardiology)on 06-30-2022 Follow-up visit Diagnoses/Problems Assessed Benign essential hypertension (401.1) (I10) Vertigo (780.4) (R42) Morbid obesity with BMI of 45.0-49.9, adult (278.01,V85.42) (E66.01,Z68.42) Never smoker Orders Morbid obesity with BMI of 45.0-49.9, adult Healthy Weight Tips; Status:Complete - Retrospective Authorization; Done: [id number] Some eating tips that can help you lose weight.; Status:Complete - Retrospective Authorization; Done: [id number] SocHx: Never smoker Tobacco Use Screening; Status:Complete; Done: [id number] Patient Instructions Please bring all medicines, vitamins, [...] Recorded: 30Jun2022 09:45AM Heart Rate74, R Radial Uenpgzxi891, RUE, Sitting Ggqyzoetx78, RUE, Sitting Height5 ft 3 in Udpnyr450 lb BMI Wwyodncxqk96.42 kg/m2 BSA Calculated2.23 Tobacco Useb) No PHQ-2 [...] . Abdomen: (more content not included)... Normal [employer] Tobacco Screening.on 023 Adult depression screening assessment No [facility] [employer] 250 DO Work Phone: Fall risk assessment a) No falls within the last year [facility] [employer] 250 DO Work Phone: Tobacco use status [facility] b) No [facility] [employer] 250 DO Work Phone: FREE T4on 05-12-2022 Free T4 [Mass/Vol] 1.11 ng/dL Normal 0.76-1.46 [facility] Comment on above: Performed By: #### F T4 #### [facility] [address] [place] [address] Dr. Karey Ordoñez GLYCOHEMOGLOBIN A1Con 2022 ADA RECOMMENDATION SEE BELOW Normal [facility] Comment on above: Result Comment: ADA RECOMMENDED LIMIT 4.0 - 6.0 ADA THERAPEUTIC TARGET < 7.0 ACTION SUGGESTED > 7.0 Performed By: #### F T4 #### [facility] [address] [place] [address] Dr. Karey Ordoñez Glucose [Mass/Vol] 114 mg/dL Normal [facility] Comment on above: Performed By: #### F T4 #### [facility] [address] [place] [address] Dr. Karey Ordoñez HbA1c (Bld) [Mass fraction] 5.6 % Normal 4.5-6.2 [facility] Comment on above: Performed By: #### F T4 #### [facility] [address] [place] [address] Dr. Karey Ordoñez PROF CHEM 8 (BAS METB)on Anion gap [Moles/Vol] 13.5 mmol/L Normal [facility] Comment on above: Performed By: #### T SH, BMP #### [facility] [address] [place] [address] Dr. Karey Ordoñez Calcium [Mass/Vol] 9.1 mg/dL Normal 8.5-10.1 [facility] Comment on above: Performed By: #### T SH, BMP #### [facility] [address] [place] [address] Dr. Karey Ordoñez Chloride [Moles/Vol] 103 mmol/L Normal 98-107 [facility] Comment on above: Performed By: #### T SH, BMP #### [facility] [address] [place] [address] Dr. Karey Ordoñez CO2 [Moles/Vol] 26.7 mmol/L Normal 21.0-32.0 [facility] Comment on above: Performed By: #### T SH, BMP #### [facility] [address] [address] [address] Karey Ordoñez Creatinine [Mass/Vol] 0.79 mg/dL Normal 0.55-1.02 [facility] Comment on above: Performed By: #### T SH, BMP #### [facility] [address] [place] [address] [address] Karey Ordoñez EGFR-AF GREEK >60 Normal >=60 [facility] Comment on above: Performed By: #### T SH, BMP #### [facility] [address] [place] [address] [address] Karey Ordoñez EGFR-NON AF GREEK >60 Normal >=60 [facility] Comment on above: Performed By: #### T SH, BMP #### [facility] [address] [place] [address] [address] Karey Ordoñez Glucose [Mass/Vol] 94 mg/dL Normal 74-106 [facility] Comment on above: Performed By: #### T SH, BMP #### [facility] [address] [place] [address] Dr. Karey Ordoñez Potassium [Moles/Vol] 4.2 mmol/L Normal 3.5-5.1 [facility] Comment on above: Performed By: #### T SH, BMP #### [facility] [address] [place] [address] Dr. Karey Ordoñez Sodium [Moles/Vol] 139 mmol/L Normal 136-145 [facility] Comment on above: Performed By: #### T SH, BMP #### [facility] [address] [place] [address] Dr. Karey Ordoñez Urea nitrogen [Mass/Vol] 12.0 mg/dL Normal 7.0-18.0 [facility] Comment on above: Performed By: #### T SH, BMP #### [facility] [address] [place] [address] Dr. Karey Ordoñez Urea nitrogen/Creatinine [Mass ratio] 15.2 mg/mg Normal [facility] Comment on above: Performed By: #### T SH, BMP #### [facility] [address] [address] [address] Karey Ordoñez TSHon 05-12-2022 TSH 1.098 uIU/mL Normal 0.358-3.740 [facility] Comment on above: Performed By: #### T SH, BMP #### [facility] [address] [address] [address] Karey Ordoñez FREE T3on 02-06-2022 FREE T3 1.79 pg/mlL Critically low 2.18-3.98 [facility] Comment on above: Performed By: #### F T3, TSH #### [facility] [address] [address] [address] Karey Ordoñez FREE T4on 02-06-2022 Free T4 [Mass/Vol] 1.12 ng/dL Normal 0.76-1.46 [facility] Comment on above: Performed By: #### F T4 #### [facility] [address] [address] [address] Karey Ordoñez TSHon 02-06-2022 TSH 2.571 uIU/mL Normal 0.358-3.740 [facility] Comment on above: Performed By: #### F T3, TSH #### [facility] [address] [place] [address] Dr. Karey Ordoñez MRI BRAIN WO CONon [...] by: VERO ATKINS Date: 2022-01-22 13:49 Normal [facility] CT CSPINE WO CONon 2 CT [...] LALI PATEL Date: 2022-01-18 10:22 Normal [facility] US CAROTID ART BILon 022 US CAROTID [...] ZINA GREGORY Date: 2022-01-17 18:33 Normal [facility] CT HEAD WO CONon 01-15-2022 CT HEAD [...] by: VERO ATKINS Date: 2022-01-15 11:07 Normal [facility] MRI KNEE RT WO CONon 12-18-2 [...] by: VERO ATKINS Date: 2021-12-18 15:05 Normal [facility] XR KNEE RT 3Von 12-10-2021 XR [...] the right knee. Electronically authenticated by: VERO WLISON Date: 2021-12-10 06:40 Normal [facility] LIVER PROFILEon 10-29-2021 Albumin [Mass/Vol] 3.7 g/dL Normal 3.4-5.0 [facility] Comment on above: Performed By: #### F T4 #### [facility] [address] [place] [address] Dr. Karey Ordoñez Albumin/Globulin [Mass ratio] 0.9 {ratio} Normal [facility] Comment on above: Performed By: #### F T4 #### [facility] [address] [place] [address] Dr. Karey Ordoñez ALP [Catalytic activity/Vol] 111 U/L Normal 46-116 [facility] Comment on above: Performed By: #### F T4 #### [facility] [address] [place] [address] Dr. Karey Ordoñez ALT [Catalytic activity/Vol] 22 U/L Normal 14-59 [facility] Comment on above: Performed By: #### F T4 #### [facility] [address] [place] [address] Dr. Karey Ordoñez AST [Catalytic activity/Vol] 12 U/L Critically low 15-37 [facility] Comment on above: Performed By: #### F T4 #### [facility] [address] [place] [address] Dr. Karey Ordoñez BILI, CONJUGATED 0.1 mg/dL Normal 0.0-0.2 [facility] Comment on above: Performed By: #### F T4 #### [facility] [address] [place] [address] Dr. Karey Ordoñez Bilirubin [Mass/Vol] 0.5 mg/dL Normal 0.2-1.0 [facility] Comment on above: Performed By: #### F T4 #### [facility] [address] [place] [address] Dr. Karey Ordoñez Globulin (S) [Mass/Vol] 4.1 g/dL Normal [facility] Comment on above: Performed By: #### F T4 #### [facility] [address] [place] [address] Dr. Karey Ordoñez Protein [Mass/Vol] 7.8 g/dL Normal 6.4-8.2 [facility] Comment on above: Performed By: #### F T4 #### [facility] [address] [place] [address] Dr. Karey Ordoñez INSULINon 10-02-2021 Insulin 10.5 uIU/mL Normal 2.6-24.9 [facility] Comment on above: Performed By: #### I NSULIN #### [facility] [address] [place] [address] Dr. Karey Ordoñez CBC AUTO DIFFon 10-01-2021 BASO # 0.0 103/ul Normal 0.0-0.1 [facility] Comment on above: Performed By: #### F T4 #### [facility] [address] [place] [address] Dr. Karey Ordoñez Basophils/100 WBC (Bld) 0.4 % Normal 0.2-2.0 [facility] Comment on above: Performed By: #### F T4 #### [facility] [address] [place] [address] Dr. Karey Ordoñez EO # 0.1 103/ul Normal 0.0-0.7 [facility] Comment on above: Performed By: #### F T4 #### [facility] [address] [place] [address] Dr. Karey Ordoñez Eosinophils/100 WBC (Bld) 1.1 % Normal 0.9-7.0 [facility] Comment on above: Performed By: #### F T4 #### [facility] [address] [place] [address] Dr. Karey Ordoñez Erythrocyte distribution width (RBC) [Ratio] 12.9 % Normal 11.0-15.0 [facility] Comment on above: Performed By: #### F T4 #### [facility] [address] [place] [address] Dr. Karey Ordoñez Hematocrit (Bld) [Volume fraction] 41.5 % Normal 36.0-48.0 [facility] Comment on above: Performed By: #### F T4 #### [facility] [address] [place] [address] Dr. Karey Ordoñez Hemoglobin (Bld) [Mass/Vol] 13.0 g/dL Normal 12.0-16.0 [facility] Comment on above: Performed By: #### F T4 #### [facility] [address] [place] [address] Dr. Karey Ordoñez IG # 0.04 10e3/ul Critically high 0.00-0.03 [facility] Comment on above: Performed By: #### F T4 #### [facility] [address] [place] [address] Dr. Karey Ordoñez IG % 0.5 % Normal 0.0-0.5 [facility] Comment on above: Performed By: #### F T4 #### [facility] [address] [place] [address] Dr. Karey Ordoñez LYMPH # 1.9 103/ul Normal 1.2-3.8 [facility] Comment on above: Performed By: #### F T4 #### [facility] [address] [place] [address] Dr. Karey Ordoñez Lymphocytes/100 WBC (Bld) 22.7 % Normal 20.5-60.0 [facility] Comment on above: Performed By: #### F T4 #### [facility] [address] [place] [address] Dr. Karey Ordoñez MANUAL DIFF REQ NO Normal [facility] Comment on above: Performed By: #### F T4 #### [facility] [address] [place] [address] Dr. Karey Ordoñez MCH (RBC) [Entitic mass] 28.9 pg Normal 26.7-34.0 [facility] Comment on above: Performed By: #### F T4 #### [facility] [address] [place] [address] Dr. Karey Ordoñez MCHC (RBC) [Mass/Vol] 31.3 g/dL Normal 29.9-35.2 [facility] Comment on above: Performed By: #### F T4 #### [facility] [address] [place] [address] Dr. Karey Ordoñez MCV (RBC) [Entitic vol] 92.2 fL Normal 81.0-99.0 [facility] Comment on above: Performed By: #### F T4 #### [facility] [address] [place] [address] Dr. Karey Ordoñez MONO # 0.6 103/ul Normal 0.3-0.8 [facility] Comment on above: Performed By: #### F T4 #### [facility] [address] [place] [address] Dr. Karey Ordoñez Monocytes/100 WBC (Bld) 6.8 % Normal 1.7-12.0 [facility] Comment on above: Performed By: #### F T4 #### [facility] [address] [place] [address] Dr. Karey Ordoñez NEUT # 5.8 103/ul Normal 1.4-6.5 [facility] Comment on above: Performed By: #### F T4 #### [facility] [address] [place] [address] Dr. Karey Ordoñez Neutrophils/100 WBC (Bld) 68.5 % Normal 43.0-75.0 [facility] Comment on above: Performed By: #### F T4 #### [facility] [address] [place] [address] Dr. Karey Ordoñez Platelet mean volume (Bld) [Entitic vol] 12.8 fL Normal 9.5-13.5 [facility] Comment on above: Performed By: #### F T4 #### [facility] [address] [place] [address] Dr. Karey Ordoñez PLT 231 103/ul Normal 150-450 [facility] Comment on above: Performed By: #### F T4 #### [facility] [address] [place] [address] Dr. Karey Ordoñez RBC 4.50 106/ul Normal 4.20-5.40 [facility] Comment on above: Performed By: #### F T4 #### [facility] [address] [place] [address] Dr. Karey Ordoñez WBC 8.5 103/ul Normal 4.0-11.0 [facility] Comment on above: Performed By: #### F T4 #### [facility] [address] [place] [address] Dr. Karey Ordoñez FREE T4on 10-01-2021 Free T4 [Mass/Vol] 1.27 ng/dL Normal 0.76-1.46 [facility] Comment on above: Performed By: #### F T4 #### [facility] [address] [place] [address] Dr. Karey Ordoñez GLYCOHEMOGLOBIN A1Con 2021 ADA RECOMMENDATION SEE BELOW Normal [facility] Comment on above: Result Comment: ADA RECOMMENDED LIMIT 4.0 - 6.0 ADA THERAPEUTIC TARGET < 7.0 ACTION SUGGESTED > 7.0 Performed By: #### A 1C #### [facility] [address] [place] [address] Dr. Karey Ordoñez Glucose [Mass/Vol] 123 mg/dL Normal [facility] Comment on above: Performed By: #### A 1C #### [facility] [address] [place] [address] Dr. Karey Ordoñez HbA1c (Bld) [Mass fraction] 5.9 % Normal 4.5-6.2 [facility] Comment on above: Performed By: #### A 1C #### [facility] [address] [place] [address] Dr. Karey Ordoñez LIPID PROFILEon 10-01-2021 CHOL-HDL RATIO NORM SEE BELOW Normal [facility] Comment on above: Result Comment: 3.3 - 4.4 LOW RISK 4.4 - 7.1 AVERAGE RISK 7.1 - 11.0 MODERATE RISK >11.0 HIGH RISK Performed By: #### F T4 #### [facility] [address] [place] [address] Dr. Karey Ordoñez Cholesterol [Mass/Vol] 182 mg/dL Normal <=200 [facility] Comment on above: Performed By: #### F T4 #### [facility] [address] [place] [address] Dr. Karey Ordoñez Cholesterol in HDL [Mass/Vol] 52 mg/dL Normal 40-60 [facility] Comment on above: Performed By: #### F T4 #### [facility] [address] [address] [address] Karey Ordoñez Cholesterol in LDL [Mass/Vol] 115.8 mg/dL Normal [facility] Comment on above: Performed By: #### F T4 #### [facility] [address] [place] [address] Dr. Karey Ordoñez Cholesterol.total/Ch olesterol in HDL [Mass ratio] 3.5 {ratio} Normal [facility] Comment on above: Performed By: #### F T4 #### [facility] [address] [place] [address] Dr. Karey Ordoñez HDL NORMAL > or = 60 mg/dl - LO W CARDIOVASCULAR RISK <40 mg/dl - HIGH CARDIOVASCULAR RISK Normal [facility] Comment on above: Performed By: #### F T4 #### [facility] [address] [place] [address] Dr. Karey Ordoñez LDL CALC NORMAL SEE BELOW Normal [facility] Comment on above: Result Comment: <100 mg/dl OPTIMAL 100 - 129 mg/dl NEAR OR ABOVE OPTIMAL 130 - 159 mg/dl BORDERLINE HIGH 160 - 189 mg/dl HIGH >190 mg/dl VERY HIGH Performed By: #### F T4 #### [facility] [address] [place] [address] Dr. Karey Ordoñez Triglyceride [Mass/Vol] 71 mg/dL Normal <=150 [facility] Comment on above: Performed By: #### F T4 #### [facility] [address] [place] [address] Dr. Karey Ordoñez VLDL CALC 14.2 mg/dL Normal [facility] Comment on above: Performed By: #### F T4 #### [facility] [address] [place] [address] Dr. Karey Ordoñez PROF 14(COMP METB)on 022 Albumin [Mass/Vol] 3.9 g/dL Normal 3.4-5.0 [facility] Comment on above: Performed By: #### F T4 #### [facility] [address] [place] [address] Dr. Karey Ordoñez Albumin/Globulin [Mass ratio] 0.9 {ratio} Normal [facility] Comment on above: Performed By: #### F T4 #### [facility] [address] [place] [address] Dr. Karey Ordoñez ALP [Catalytic activity/Vol] 117 U/L Critically high 46-116 [facility] Comment on above: Performed By: #### F T4 #### [facility] [address] [place] [address] Dr. Karey Ordoñez ALT [Catalytic activity/Vol] 25 U/L Normal 14-59 [facility] Comment on above: Performed By: #### F T4 #### [facility] [address] [place] [address] Dr. Karey Ordoñez Anion gap [Moles/Vol] 14.1 mmol/L Normal [facility] Comment on above: Performed By: #### F T4 #### [facility] [address] [place] [address] Dr. Karey Ordoñez AST [Catalytic activity/Vol] 14 U/L Critically low 15-37 [facility] Comment on above: Performed By: #### F T4 #### [facility] [address] [place] [address] Dr. Karey Ordoñez Bilirubin [Mass/Vol] 0.5 mg/dL Normal 0.2-1.0 [facility] Comment on above: Performed By: #### F T4 #### [facility] [address] [place] [address] Dr. Karey Ordoñez Calcium [Mass/Vol] 9.1 mg/dL Normal 8.5-10.1 [facility] Comment on above: Performed By: #### F T4 #### [facility] [address] [place] [address] Dr. Karey Ordoñez Chloride [Moles/Vol] 102 mmol/L Normal 98-107 [facility] Comment on above: Performed By: #### F T4 #### [facility] [address] [address] [address] Karey Ordoñez CO2 [Moles/Vol] 27.7 mmol/L Normal 21.0-32.0 [facility] Comment on above: Performed By: #### F T4 #### [facility] [address] [address] [address] Karey Ordoñez Creatinine [Mass/Vol] 0.76 mg/dL Normal 0.55-1.02 [facility] Comment on above: Performed By: #### F T4 #### [facility] [address] [place] [address] Dr. Karey Ordoñez EGFR-AF GREEK >60 Normal >=60 [facility] Comment on above: Performed By: #### F T4 #### [facility] [address] [place] [address] Dr. Karey Ordoñez EGFR-NON AF GREEK >60 Normal >=60 [facility] Comment on above: Performed By: #### F T4 #### [facility] [address] [address] [address] Karey Ordoñez Globulin (S) [Mass/Vol] 4.5 g/dL Normal [facility] Comment on above: Performed By: #### F T4 #### [facility] [address] [place] [address] Dr. Karey Ordoñez Glucose [Mass/Vol] 101 mg/dL Normal 74-106 [facility] Comment on above: Performed By: #### F T4 #### [facility] [address] [place] [address] Dr. Karey Ordoñez Potassium [Moles/Vol] 3.8 mmol/L Normal 3.5-5.1 [facility] Comment on above: Performed By: #### F T4 #### [facility] [address] [place] [address] Dr. Karey Ordoñez Protein [Mass/Vol] 8.4 g/dL Critically high 6.4-8.2 [facility] Comment on above: Performed By: #### F T4 #### [facility] [address] [address] [address] Karey Ordoñez Sodium [Moles/Vol] 140 mmol/L Normal 136-145 [facility] Comment on above: Performed By: #### F T4 #### [facility] [address] [place], [place] [address] Dr. Karey Ordoñez Urea nitrogen [Mass/Vol] 10.0 mg/dL Normal 7.0-18.0 [facility] Comment on above: Performed By: #### F T4 #### [facility] [address] [address] [address] Karey Ordoñez Urea nitrogen/Creatinine [Mass ratio] 13.2 mg/mg Normal [facility] Comment on above: Performed By: #### F T4 #### [facility] [address] [place] [address] Dr. Karey Ordoñez TSHon 10-01-2021 TSH 2.445 uIU/mL Normal 0.358-3.740 [facility] Comment on above: Performed By: #### F T4 #### [facility] [address] [address] [address] Karey Ordoñez TSH RANGE SEE BELOW Normal [facility] Comment on above: Result Comment: <0.3 4 UIU/ml HYPERTHYROID 0.34-5.60 UIU/ml EUTHYROID >5.60 UIU/ml HYPOTHYROID Performed By: #### F T4 #### [facility] [address] [address] [address] Karey Ordoñez Vital Signs Date Time Vital Sign Value Performing Clinician Faci lity 02-17-2023 08:48-0400 Body weight 126.55 kg Jennifer Marcus MD Work Phone: [facility] 02-17-2023 08:48-0400 Diastolic blood pressure 82 mm[Hg] Jennifer Marcus MD Work Phone: [facility] 02-17-2023 08:48-0400 Heart rate 96 /min Jennifer Marcus MD Work Phone: [facility] 02-17-2023 08:48-0400 SaO2% (BldA) [Mass fraction] 98 % Jennifer Marcus MD Work Phone: [facility] 02-17-2023 08:48-0400 Systolic blood pressure 116 mm[Hg] Jennifer Marcus MD Work Phone: [facility] 06-30-2022 09:45-0500 Body height 160.02 cm Allison Ara Gordonrasheedholz Work Phone: [facility] DO Work Phone: 06-30-2022 09:45-0500 Body mass index (BMI) [Ratio] 49.42 kg/m2 Allison Bullock Heidihholz Work Phone: [facility] DO Work Phone: 06-30-2022 09:45-0500 Body surface area Derived from formula 2.23 m2 Allison Gordonhholz Work Phone: [facility] [address] DO Work Phone: 06-30-2022 09:45-0500 Body weight 126.55 kg Allison Bullock Heidirasheedholz Work Phone: [facility] [address] DO Work Phone: 06-30-2022 09:45-0500 Diastolic blood pressure 80 mm[Hg] Allison Ara Gordonrasheedholz Work Phone: [facility] DO Work Phone: 06-30-2022 09:45-0500 Heart rate 74 /min Allison Ara Gordonhholz Work Phone: [facility] DO Work Phone: 06-30-2022 09:45-0500 Systolic blood pressure 128 mm[Hg] Allisonmich Gordonhholz Work Phone: [facility] DO Work Phone: Encounters Encounter Date Encounter Type Care Provider Facility Start: 11-02-2023 End: 11-02-2023 ambulatory Patrick Parks MD Facility:[facility] Start: 10-19-2023 End: 10-19-2023 ambulatory Patrick Parks MD Facility:[facility] Start: 10-13-2023 End: 10-13-2023 ambulatory ALLISON VANESSA Not Available Start: 10-12-2023 End: 10-12-2023 ambulatory Patrick Parks MD Facility:[facility] Start: 09-07-2023 End: 09-07-2023 ambulatory Patrick Parks MD Facility:[facility] Start: 08-31-2023 Chart abstracting Dino Garcia [facility] Work Phone: [facility] Comment on above: Genetics- parental t esting Start: 07-30-2023 End: 07-30-2023 ambulatory ALLISON BINHZ Not Available Start: 07-24-2023 End: 07-25-2023 ambulatory TAQUERIA SOLIS [facility] Start: 07-15-2023 Orders Only Taqueria Solis MD Work Phone: [facility] Comment on above: Elevated partial thr omboplastin time (PTT) (Primary Dx) Start: 07-13-2023 End: 07-14-2023 ambulatory JOANN MAHMOOD [facility] Start: 04-30-2023 End: 04-30-2023 ambulatory ALLISON AICHHOLZ Not Available Start: 02-17-2023 End: 02-18-2023 ambulatory JENNIFER MARCUS Facility:[facility] Start: 02-17-2023 End: 02-17-2023 Office outpatient new 60 minutes Jennifer Marcus MD Work Phone: Rheumatology Comment on above: Fibromyalgia (Primar y Dx); Sedimentation rate elevation; Fatigue, unspecified type; Vitamin D deficiency Start: 07-07-2022 Encounter for antibo dy response examination ETHYLBENZENE CONVERTER OPERATOR ALLISON MENDEZ [facility] Start: 07-03-2022 End: 07-04-2022 ambulatory ETHYLBENZENE CONVERTER OPERATOR ALLISON MENDEZ Facility:[facility] Start: 07-03-2022 End: 07-04-2022 Encounter for antibody response examination LAURO MENDEZ Facility:[facility] Start: 06-30-2022 Office outpatient vi sit 15 minutes Allison Mccluresrinivasa Work Phone: [facility] DO Work Phone: Start: 06-30-[address] [facility] Start: 05-12-2022 End: 05-13-2022 ambulatory LAURO MENDEZ Facility:[facility] Start: 03-04-2022 End: 03-04-2022 ambulatory JESSE HATCH Facility:[facility] Start: 02-06-2022 End: 02-07-2022 ambulatory ETHYLBENZENE CONVERTER OPERATOR ALLISON VANESSA Facility:[facility] Start: 01-22-2022 End: 01-23-2022 ambulatory LAURO MENDEZ Facility:[facility] Start: 01-18-2022 End: 01-18-2022 ambulatory LAURO PEREZA VANESSA Facility:[facility] Start: 01-17-2022 End: 01-18-2022 ambulatory ETHYLBENZENE CONVERTER OPERATOR ALLISON BINHZ Facility:[facility] Start: 01-15-2022 End: 01-15-2022 ambulatory ETHYLBENZENE CONVERTER OPERATOR ALLISON BINHZ Facility:[facility] Start: 12-18-2021 End: 12-19-2021 ambulatory ETHYLBENZENE CONVERTER OPERATOR ALLISONMich MCCULREMARRYLorri Facility:[facility] Start: 12-09-2021 End: 12-10-2021 ambulatory SHAIKH Rasheed LARA Facility:[facility] Start: 10-29-2021 End: 10-30-2021 ambulatory ETHYLBENZENE CONVERTER OPERATOR ALLISON SHERMANMARRYLorri Facility:[facility] Start: 10-01-2021 End: 10-02-2021 ambulatory ETHYLBENZENE CONVERTER OPERATOR ALLISON BINHZ Facility:[facility] Start: 08-13-2021 End: 10-01-2021 ambulatory ETHYLBENZENE CONVERTER OPERATOR ALLISON SHERMANMARRYZ Facility:[facility] Procedures Date Procedure Procedure [...] Start: 04-14-2024 Depression Screening Depression Scre ening [facility] Start: 04-14-2024 Tobacco Screening Tobacco Screening [facility] Start: 04-11-2024 FUV, Provider: Chandler Wilkes, Status: Pen, Time: 11:00 AM FUV, Provider: Chandler Wilkes, Status: Pen, Time: 11:00 AM [facility] 250 DO Work Phone: Start: 01-10-2024 Influenza vaccination Influenz a Vaccine (Season Ended) [facility] Start: 05-11-2023 Behavioral Health Screening Behavioral Health Screening [facility] Start: 02-17-2023 End: 04-19-2023 Cobalamin (Vitamin B12) [Mass/volume] in Serum or Plasma [facility] Work Phone: Comment on above: Expected: 02/17/2023 , Expires: 04/19/2023 Start: 02-17-2023 End: 04-19-2023 IMMUNOGLOBULINS YARI IMMUNOGLOBULINS YARI Lab Routine Sedimentation rate elevation Expected: 02/17/2023, Expires: 04/19/2023 [facility] Work Phone: Comment on above: Expected: 02/17/2023 , Expires: 04/19/2023 Start: 02-17-2023 End: 04-19-2023 PROTEIN ELECTROPHORESIS SERUM W/INTERP PROTEIN ELECTROPHORESIS SERUM W/INTERP Lab Routine Sedimentation rate elevation Expected: 02/17/2023, Expires: 04/19/2023 [facility] Work Phone: Comment on above: Expected: 02/17/2023 , Expires: 04/19/2023 Start: 01-09-2023 Covid-19 Vaccine ( season) Covid-19 Vaccine ( season) [facility] Start: 01-09-2023 Influenza vaccination [facility] Start: 05-11-2022 Depression Assessment Depression Ass essment [facility] Start: 12-25-2013 HPV Testing HPV Testing [facility] Start: 12-25-2013 Screening for malign ant neoplasm of cervix HPV Testing [facility] Start: 12-25-2004 Pap Testing Pap Testing [facility] Start: 12-25-2004 Screening for malign ant neoplasm of cervix Pap Testing [facility] Start: 12-25-2002 DTaP,Tdap and Td Vac cines (1 - Tdap) DTaP,Tdap and Td Vaccines (1 - Tdap) [facility] Start: 12-25-2002 Hepatitis B Vaccine (1 of 3 - 19+ 3-dose series) Hepatitis B Vaccine (1 of 3 - 19+ 3-dose series) [facility] Start: 12-25-2002 Urine microalbumin profile DTaP,Tdap,Td Vaccine (1 - Tdap) [facility] Start: 12-25-2001 Adult BMI Follow Up Plan Adult BMI F ollow Up Plan [facility] Start: 12-25-2001 Hepatitis C Screening Hepatitis C [facility] Start: 12-25-2001 Hepatitis C screening Hepatitis C [facility] Start: 12-25-2001 HIV Screening HIV Screening [facility] Start: 12-25-2001 HIV screening HIV Screening [facility] Start: 1985 Hepatitis B Vaccine (1 of 3 - 3-dose series) Hepatitis B Vaccine (1 of 3 - 3-dose series) [facility] End: 07-14-2024 Inhibitor screen Inhibitor screen Lab Routine Elevated partial thromboplastin time (PTT) 1 Occurrences starting 07/15/2023 until 07/14/2024 [facility] Work Phone: Comment on above: 1 Occurrences starti ng 07/15/2023 until 07/14/2024 SWAB COLLECTION SPECIMEN SWAB CO LLECTION SPECIMEN Lab Routine Family history of autism Ordered: 08/31/2023 [facility] Work Phone: Comment on above: Ordered: 08/31/2023 Immunizations Immunization Date Immunization Notes Care Provider Charla cortez 04-25-2022 influenza virus vacc ine, unspecified formulation Taqueria Solis MD Work Phone: [facility] 09-10-2020 Pfizer-BioNTech COVI D-19 Vacc 30 MCG/0.3ML Intramuscular Suspension [facility] Work Phone: 08-20-2020 Pfizer-BioNTech COVI D-19 Vacc 30 MCG/0.3ML Intramuscular Suspension Allison Mendez Work Phone: [facility] 250 DO Work Phone: Payers Date Payer Category Payer Unknown 2019 Medicaid [id number] 1985 Unknown [id number] 2.16. [id number] 1985 Unknown [id number] 2.16.84 0.1.683540.3.579.2.593 1985 Unknown [id number] 2.16.84 0.1.848950.3.579.2.593 1983 Unknown [id number] 2.16.84 0.1.016077.3.579.2.593 1983 Unknown [id number] 2.16.84 0.1.550312.3.579.2.593 1983 Unknown [id number] 2.16.84 0.1.691377.3.579.2.593 1983 Unknown [id number] 2.16.84 0.1.681361.3.579.2.593 1983 Unknown [id number] 2.16.84 0.1.229109.3.579.2.593 1983 Unknown [id number] 2.16.84 0.1.485887.3.579.2.593 1983 Unknown [id number] 2.16.84 0.1.654826.3.579.2.593 1983 Unknown [id number] 2.16.84 0.1.296019.3.579.2.593 1983 Unknown [id number] 2.16.84 0.1.904074.3.579.2.593 1983 Unknown [id number] 2.16.84 0.1.220854.3.579.2.593 1983 Unknown [id number] 2.16.84 0.1.803643.3.579.2.593 1983 Unknown [id number] 2.16.8 40.1.670725.3.579.2.1286 1983 Unknown [id number] 2.16.8 40.1.529203.3.579.2.1286 1983 Unknown [id number] 2.16.84 0.1.229019.3.579.2.1259 1983 Unknown [id number] 2.16.84 0.1.071999.3.579.2.1259 1983 Unknown [id number] 2.16.840 .1.175155.3.579.2.1259 1983 Unknown [id number] 2.16. 840.1.547611.3.579.2.196 1983 Unknown [id number] 2.16. 840.1.035352.3.579.2.196 1983 Unknown [id number] 2.16. 840.1.490690.3.579.2.196 1983 Unknown [id number] 2.16. 840.1.877875.3.579.2.196 1959 Unknown [id number] Social History Date Type Detail Facility Start: 02-13-2023 End: 02-17-2023 No alcohol use No alcohol use [facility] Comment on above: 1-2 cups coffee brian y; Start: 07-29-2021 End: 02-17-2023 Tobacco smoking status NHIS Never smoked tobacco [facility] Start: 07-29-2021 End: 02-17-2023 Tobacco use and exposure Smokeless tobacco non-user [facility] Start: 02-13-2023 End: 02-17-2023 Tobacco use panel [facility] Adult Depression Screening Assessment 0 [facility] Start: 1985 Sex Assigned At Not on file C [facility] Start: 04-14-2023 Alcohol intake Ex-drinker (finding) [facility] Progress note 08-31-2023 Note Date & Type Note Facility 08-31-2023 Note HNO ID: [id number] Author: DINO SELLERS LGC Service: ? Author [...] to her home address. Dino Sellers MS, [facility] Licensed Genetic Counselor [facility] History of Present illness Narrative 08-31-2023 [...] to her home address. Dino Sellers MS, [facility] Licensed Genetic Counselor documented in this encounter [facility] Progress note 02-17-2023 Note Date & Type Note Facility 02-17-2023 Note HNO ID: [id number] Author: Jennifer Marcus MD Service: ? Author Type: Physician Type: Progress Notes Filed: 02/17/2023 10:02 AM Note Text: Rheumatology Clinic Date of Service: 02/17/2023 Patient: Denisha Velasco Medical Record: [id number] Last Rheumatology visit: None at [facility] History of Present Illness Denisha Velasco is [...] each day a (more content not included)... [facility] Instructions 02-17-2023 Patient Instructions Note Date & [...] conditions. A meta-analysis from the [facility] in [place] suggested that concomitant fibromyalgia is common in patients with inflammatory arthritis, which can have a major impact on assessing disease severity and treatment decisions. The overall prevalence of fibromyalgia was 21% among patients with rheumatoid arthritis and 13% in ankylosing spondylitis, whereas the condition is reported in approximately 1% to 5% of the general population, according to Wyatt Luke, [facility], PhD, of the [facility] in [place], and colleagues. The cornerstones of therapy for [...] guidelines of fibromyalgia: (1) https://www.rheumatology.org/I-Am-A/Patient- Caregiver/Diseases-Conditions/Fibromyalgia (2) [email or web address].[email or web address]/ documented in this encounter [facility] History of Present illness Narrative 02-17-2023 Jennifer Marcus MD - 02/17/2023 8:49 AM EDT Note Date & Type Note Facility 02-17-2023 History of Presen t illness Narrative Images from the original note were not included. Rheumatology Clinic Date of Service: 02/17/2023 Patient: Denisha Velasco Medical Record: [id number] Last Rheumatology visit: None at [facility] History of Present Illness Denisha Velasco is [...] which included preparing to see the patient, [id number] patient care, completing clinical documentation, obtaining and/or reviewing separately obtained history, performing a medically appropriate examination, and counseling and educating the patient/family/caregiver. Jennifer Marcus MD Rheumatology Date: February 17, 2023 Time: 8:50 AM documented in this encounter [facility] Evaluation note Note Date & Type Note Facility Evaluation note Diagnosis Fibromyalgia- Primary Mylagia and myositis, unspecified Sedimentation rate elevation Elevated sedimentation rate Fatigue, unspecified type Vitamin D deficiency Unspecified vitamin D deficiency documented in this encounter [facility] Evaluation note Note Date & Type Note Facility Evaluation note Diagnosis Elevated partial thromboplastin time (PTT)- Primary Abnormal coagulation profile documented in this encounter [facility] Evaluation note Note Date & Type Note Facility Evaluation note Diagnosis Family history of autism- Primary Family history of psychiatric condition documented in this encounter [facility] History of Present illness Narrative Note Date [...] of doing it at her young age. -[facility] 250 DO Work Phone: Instructions Note [...] section and content) DATE CREATED AUTHOR 06/30/2022 [facility] DATE CREATED AUTHOR AUTHOR'S ORGANIZ ATION 07/01/2022 [employer] DATE CREATED AUTHOR AUTHOR'S ORGANIZ ATION 07/08/2022 [facility] DATE CREATED AUTHOR AUTHOR'S ORGANIZ ATION 08/01/2023 [facility] DATE CREATED AUTHOR AUTHOR'S ORGANIZ ATION 08/31/2023 [facility] DATE CREATED AUTHOR AUTHOR'S ORGANIZ ATION 10/14/2023 [facility] DATE CREATED AUTHOR AUTHOR'S ORGANIZ ATION 11/04/2023 [facility] Source Comments (unrecognize d section and content) In the event this informatio n is protected by the Federal Confidentiality of Alcohol and Drug Abuse Patient Records regulations: The Federal rules restrict any use of the information to criminally investigate or prosecute any alcohol or drug abuse patient.[facility] the event this information is protected by the Federal Confidentiality of Alcohol and Drug Abuse Patient Records regulations: The Federal rules restrict any use of the information to criminally investigate or prosecute any alcohol or drug abuse patient.[facility] Reason for Visit (unrecogniz ed section and content) Reason Comments Consult Reason Comments Genetics- parental testing Care Teams (unrecognized sec tion and content) Set Up Operator Tool Relationship Specialty Start Date End Date Allison Mendez, PRODUCTION SPECIALIST-ETHYLBENZENE CONVERTER OPERATOR [address] [place] [address] PCP - General Nurse Practitioner 04/14/23 FOR [...] BE BASED ON THE PRIMARY CLINICAL RECORDS. [employer] provides no warranty or guarantee of the accuracy or completeness of information in this document.
--- NOTE | 2023-12-01 10:12 | XR_ITS ---
The [address] [address] Patient Name: DENISHA MALDONADO MRN: [id number] date: 1985 Sex: F Assigned Patient Location: ER Current Patient Location: ER Accession/Order Number: [id number] Exam Date: 12/01/2023 10:08 Report Date: 12/01/2023 10:28 At the request of: RAMON SINGLETON Procedure: XR chest 1V EXAMINATION: XR chest 1V HISTORY: Chest Pain ; upper left chest pain COMPARISON: No relevant comparison available. FINDINGS: LUNGS: Mild opacities over lateral left lower lungs suspected to be anterior soft tissue artifact. VASCULATURE: No increased pulmonary vasculature. PLEURA: No pneumothorax, effusion, or pleural thickening. CARDIAC: No cardiomegaly or cardiac silhouette abnormality. MEDIASTINUM: No visible mass or adenopathy. BONES: No fracture or visible bone lesion. OTHER: Negative. XR/XR chest 1V IMPRESSION: 1. Examination is slightly limited by patient body habitus and AP portable technique. 2. No convincing acute cardiopulmonary process. If there remains clinical concern consider PA and lateral chest radiographs. Electronically authenticated by: ZINA GREGORY Date: 12/01/2023 10:28
[2023-12-01 10:21] LABS: Basophils Percent Auto 0.5 % (0.2-2.0); Eosinophils Absolute Auto 0.1 10^3/uL (0.0-0.7); Eosinophils Percent Auto 1.6 % (0.9-7.0); Hematocrit 41.1 % (36.0-48.0); Hemoglobin 13.3 g/dL (12.0-16.0); Immature Granulocytes Abs Auto 0.03 10^3/uL (0.00-0.03); Immature Granulocytes Pct Auto 0.3 % (0.0-0.5); Lymphocytes Percent Auto 22.6 % (20.5-60.0); Mean Corpuscular HGB Conc 32.4 g/dL (29.9-35.2); Mean Corpuscular Hemoglobin 29.9 pg (26.7-34.0); Mean Corpuscular Volume 92.4 fL (81.0-99.0); Mean Platelet Volume 12.4 fL (9.5-13.5); Monocytes Absolute Auto 0.8 10^3/uL (0.3-0.8); Monocytes Percent Auto 8.7 % (1.7-12.0); Neutrophils Absolute Auto 5.7 10^3/uL (1.4-6.5); Neutrophils Percent Auto 66.3 % (43.0-75.0); Platelet Count 233 10^3/uL (150-450); Red Blood Count 4.45 10^6/uL (4.20-5.40); Red Cell Distribution Width 12.7 % (11.0-15.0); White Blood Count 8.6 10^3/uL (4.0-11.0)
[2023-12-01 10:39] LABS: Alanine Aminotransferase 20 U/L (14-59); Albumin Globulin Ratio 0.9; Albumin Level 3.6 g/dL (3.4-5.0); Alkaline Phosphatase 160 U/L (46-116); Anion Gap 12.3; Aspartate Amino Transferase 12 U/L (15-37); BUN Creatinine Ratio 12.2; Bilirubin Total 0.5 mg/dL (0.2-1.0); Calcium 9.2 mg/dL (8.5-10.1); Chloride 102 mmol/L (98-107); Estimated GFR (African America >60 (>=60); Estimated GFR (Non-African Ame >60 (>=60); Globulin 3.9 g/dL; Glucose 98 mg/dL (74-106); Magnesium 1.9 mg/dL (1.8-2.4); Potassium 4.3 mmol/L (3.5-5.1); Sodium 137 mmol/L (136-145); Total Protein 7.5 g/dL (6.4-8.2); Troponin I High Sensitivity <4.0 pg/mL (4.0-51.3)
[2023-12-01 10:43] LABS: HCG Qualitative NEGATIVE (NEGATIVE); Internal Control Within Normal Limits
[2023-12-01 10:58] LABS: D Dimer <0.19 mg/L FEU (<=0.59)
--- NOTE | 2023-12-01 12:18 | ED.EXTPRO1 ---
HPI - Extremity Problem General Chief complaint: Extremity Problem, Nontraumatic Stated complaint: EXTREMITY WEAKNESS/ SHORTNESS OF BREATH Time Seen by Provider: 12/01/23 09:54 Source: patient Mode of arrival: walk-in Limitations: no limitations History of Present Illness HPI Narrative: The patient is coming to the ER with a left-sided flank pain that started yesterday all of a sudden, she mentioned that this pain was just at the wave all of a sudden she had the pain that is gone now but she started having after that numbness and tingling in her left side of the face as well as her left arm, The patient does not have any weakness in her upper or lower extremity She did mention having history of left-sided neck pain as well at the chronic pain It was noted that the patient has been googling other reason for his symptoms and she did mention some diagnoses that she is concerned about The patient denies any chest pain at the moment no difficulty breathing no sweating no nausea no vomiting no abdominal pain Patient have no frequency of urination Related Data Home Medications ?Medication ?Instructions ?Recorded ?Confirmed aspirin 81 mg tablet,delayed 81 mg PO DAILY 03/31/23 11/02/23 release (Adult Low Dose Aspirin) atorvastatin 10 mg tablet 10 mg PO DAILY 03/31/23 11/02/23 buspirone 10 mg tablet 10 mg PO BID 03/31/23 11/02/23 levothyroxine 137 mcg tablet 150 mcg PO DAILY 03/31/23 11/02/23 losartan 50 mg tablet 50 mg PO DAILY 03/31/23 11/02/23 metformin 500 mg tablet 500 mg PO DAILY 03/31/23 11/02/23 sertraline 100 mg tablet 100 mg PO BEDTIME 03/31/23 11/02/23 verapamil 180 mg 24 hr 180 mg PO DAILY 03/31/23 11/02/23 capsule,extended release VICTOZA 1.8 mg DAILY 09/07/23 cholecalciferol (vitamin D3) 125 125 mcg PO DAILY 10/12/23 11/02/23 mcg (5,000 unit) tablet acetaminophen 650 mg 650 mg PO Q12H PRN pain 10/15/23 11/02/23 tablet,extended release diclofenac sodium 1 % topical gel 2 g topical QID 10/15/23 11/02/23 magnesium 500 mg tablet 500 mg PO BID 10/15/23 11/02/23 meclizine 25 mg tablet 12.5 mg PO BID PRN dizziness 10/15/23 11/02/23 mecobalamin (vitamin B12) 1,000 1,000 mcg PO DAILY 10/15/23 11/02/23 mcg chewable tablet triamcinolone acetonide 55 mcg 1 spray intranasal DAILY 10/15/23 11/02/23 nasal spray aerosol (Nasacort) Previous Rx's ?Medication ?Instructions ?Recorded acetaminophen 650 mg 650 mg PO Q8H PRN pain #20 tabs 12/01/23 tablet,extended release (Tylenol 8 Hour) orphenadrine citrate 100 mg 100 mg PO BID PRN muscle spasm #10 12/01/23 tablet,extended release tabs prednisone 20 mg tablet 40 mg (2 x 20 mg) PO DAILY 5 days 12/01/23 #10 tabs Allergies Allergy/AdvReac Type Severity Reaction Status Date / Time hydrochlorothiazide Allergy Severe Fever Verified 12/01/23 09:48 celecoxib [From Celebrex] Allergy Unknown Chest Pain Verified 12/01/23 09:48 gabapentin AdvReac Severe Confusion Verified 12/01/23 09:48 Review of Systems ROS Status of ROS 10 or more systems reviewed and unremarkable except as noted in history and below [facility] Medical History (Updated 12/01/23 @ 11:22 by Alesha Beach MD) Vertigo ?R42 - Dizziness and giddiness (ICD-10) Anxiety ?F41.9 - Anxiety disorder, unspecified (ICD-10) Diabetes ?E11.9 - Type 2 diabetes mellitus without complications (ICD-10) Sleep apnea ?G47.30 - Sleep apnea, unspecified (ICD-10) Asthma ?J45.909 - Unspecified asthma, uncomplicated (ICD-10) Irregular heart beat ?I49.9 - Cardiac arrhythmia, unspecified (ICD-10) Heart murmur ?R01.1 - Cardiac murmur, unspecified (ICD-10) High blood pressure ?I10 - Essential (primary) hypertension (ICD-10) Surgical History History of hysterectomy ?Z90.710 - Acquired absence of both cervix and uterus (ICD-10) History of section ?Z98.891 - History of uterine scar from previous surgery (ICD-10) History of arthroscopy of right knee ?Z98.890 - Other specified postprocedural states (ICD-10) Social History Smoking status: Never smoker Exam Narrative Exam Narrative: Nurses notes and vital signs reviewed and patient is not hypoxic. General: Well-appearing and in no apparent distress. Skin: Warm, dry, no pallor noted. No rash. Head: Normocephalic, atraumatic. Neck: Supple, left paraspinal muscle tenderness Eye: Pupils are equal, round and EOMI. No scleral icterus. Ears, Nose, Mouth, and Throat: TM are clear, no nasal mucosal hypertrophy. Oral mucosa is moist, no posterior oropharynx erythema, uvula is mid-line Cardiovascular: Regular Rate and Rhythm without murmur, gallop or rub. Respiratory: No accessory muscle use or respiratory distress. Lungs are clear to auscultation, no wheezing, rales or rhonchi Chest Wall: no tenderness Back: No midline thoracic or lumbar vertebral tenderness. No CVA tenderness Musculoskeletal: normal ROM, no calf or popliteal tenderness, no lower extremity edema/swelling GI: Abdomen is soft, non-distended. Normal bowel sounds. No masses appreciated. No tenderness to palpation. No rebound, guarding, or rigidity noted. Neurological: A&O x4. No cranial nerve dysfunction observed. No truncal ataxia. Moves all extremities. Sensation intact. Psychiatric: Cooperative and interactive. Normal mood and affect. Constitutional Vital Signs, click to edit/add: Last Vital Signs Temp 98.1 F 12/01/23 09:48 Pulse 70 12/01/23 11:00 Resp 22 H 12/01/23 11:00 BP 149/81 H 12/01/23 09:51 Pulse Ox 99 12/01/23 09:48 O2 Del Method Room Air 12/01/23 09:48 Course Vital Signs Vital signs: Vital Signs Temperature 98.1 F 12/01/23 09:48 Pulse Rate 85 12/01/23 09:48 Respiratory Rate 16 12/01/23 09:48 Blood Pressure 149/81 H 12/01/23 09:48 Pulse Oximetry 99 12/01/23 09:48 Oxygen Delivery Method Room Air 12/01/23 09:48 Temperature 98.1 F 07/23/24 09:48 Pulse Rate 70 12/01/23 11:00 Respiratory Rate 22 H 12/01/23 11:00 Blood Pressure 149/81 H 12/01/23 09:51 Pulse Oximetry 99 12/01/23 09:48 Oxygen Delivery Method Room Air 12/01/23 09:48 MDM - Extremity (Nontraumatic) MDM Narrative Medical decision making narrative: The patient EKG in the ER showing sinus rhythm with a heart rate of [address] elevation or depression CBC chemistry as well as troponin are negative as well as D-dimer Chest x-ray showed no acute pathology It was noted that the patient symptoms are nonspecific she is very anxious and she has been looking into diagnoses herself I did explain to her that right now her neck pain could be the reason for the numbness and tingling in her left hand as well as her left side of the face There was no neurological finding on examination with a complete neuroexam normal The patient was started on prednisone as well as Tylenol and Norflex for neck pain management The patient is to follow up with primary care physician in next 2-3 days or to return to the emergency department should any of the signs or symptoms worsen or new symptoms develop. The patient agrees with the following Diagnosis and Treatment plan and the patient will be discharged home. Lab Data Labs: Lab Results 12/01/23 Range/Units 10:09 WBC 8.6 (4.0-11.0) 10^3/uL RBC 4.45 (4.20-5.40) 10^6/uL Hgb 13.3 (12.0-16.0) g/dL Hct 41.1 (36.0-48.0) % MCV 92.4 (81.0-99.0) fL MCH 29.9 (26.7-34.0) pg MCHC 32.4 (29.9-35.2) g/dL RDW 12.7 (11.0-15.0) % Plt Count 233 (150-450) 10^3/uL MPV 12.4 (9.5-13.5) fL Neut % (Auto) 66.3 (43.0-75.0) % Lymph % (Auto) 22.6 (20.5-60.0) % [place] % (Auto) 8.7 (1.7-12.0) % Eos % (Auto) 1.6 (0.9-7.0) % Baso % (Auto) 0.5 (0.2-2.0) % Neut # (Auto) 5.7 (1.4-6.5) 10^3/uL Lymph # (Auto) 2.0 (1.2-3.8) 10^3/uL [place] # (Auto) 0.8 (0.3-0.8) 10^3/uL Eos # (Auto) 0.1 (0.0-0.7) 10^3/uL Baso # (Auto) 0.0 (0.0-0.1) 10^3/uL Abs Immat Gran (auto) 0.03 (0.00-0.03) 10^3/uL Imm/Tot Granulo (auto) 0.3 (0.0-0.5) % D-Dimer <0.19 (<=0.59) mg/L FEU Sodium 137 (136-145) mmol/L Potassium 4.3 (3.5-5.1) mmol/L Chloride 102 (98-107) mmol/L Carbon Dioxide 27.0 (21.0-32.0) mmol/L Anion Gap 12.3 BUN 11.0 (7.0-18.0) mg/dL Creatinine 0.90 (0.55-1.02) mg/dL Est GFR ( Amer) >60 (>=60) Est GFR (Non-Af Amer) >60 (>=60) BUN/Creatinine Ratio 12.2 Glucose 98 (74-106) mg/dL Calcium 9.2 (8.5-10.1) mg/dL Magnesium 1.9 (1.8-2.4) mg/dL Total Bilirubin 0.5 (0.2-1.0) mg/dL AST 12 L (15-37) U/L ALT 20 (14-59) U/L Alkaline Phosphatase 160 H (46-116) U/L Troponin I High Sens <4.0 L (4.0-51.3) pg/mL Total Protein 7.5 (6.4-8.2) g/dL Albumin 3.6 (3.4-5.0) g/dL Globulin 3.9 g/dL Albumin/Globulin Ratio 0.9 Serum HCG, Qual Negative (NEGATIVE) Discharge Plan Discharge Stand Alone Forms: Portal Instructions Chief Complaint: Extremity Problem, Nontraumatic Clinical Impression: Neck sprain Patient Disposition: Home, Self-Care Time of Disposition Decision: 11:22 Condition: Good Mode of Transportation: Private Vehicle Prescriptions / Home Meds: New orphenadrine citrate 100 mg tablet extended release 100 mg PO BID PRN (Reason: muscle spasm) Qty: 10 0RF prednisone 20 mg tablet 40 mg PO DAILY 5 Days Qty: 10 0RF acetaminophen [Tylenol 8 Hour] 650 mg tablet extended release 650 mg PO Q8H PRN (Reason: pain) Qty: 20 0RF No Action VICTOZA 1.8 mg DAILY cholecalciferol (vitamin D3) 125 mcg (5,000 unit) tablet 125 mcg PO DAILY magnesium 500 mg tablet 500 mg PO BID mecobalamin (vitamin B12) 1,000 mcg tablet,chewable 1,000 mcg PO DAILY Patient Comments: PT TAKES 1000MG & 200MG DOSE TWICE DAILY acetaminophen 650 mg tablet extended release 650 mg PO Q12H PRN (Reason: pain) meclizine 25 mg tablet 12.5 mg PO BID PRN (Reason: dizziness) diclofenac sodium 1 % gel 2 g topical QID Rx Instructions: apply to single elbow, wrist or hand; for hand includes palm/fingers/back of hand triamcinolone acetonide [Nasacort] 55 mcg aerosol,spray 1 spray intranasal DAILY Rx Instructions: administer into each nostril atorvastatin 10 mg tablet 10 mg PO DAILY buspirone 10 mg tablet 10 mg PO BID levothyroxine 137 mcg tablet 150 mcg PO DAILY losartan 50 mg tablet 50 mg PO DAILY metformin 500 mg tablet 500 mg PO DAILY sertraline 100 mg tablet 100 mg PO BEDTIME verapamil 180 mg capsule,ext rel. pellets 24 hr 180 mg PO DAILY aspirin [Adult Low Dose Aspirin] 81 mg tablet,delayed release (DR/EC) 81 mg PO DAILY Print Language: Macedonian Instructions: Cervical Sprain (ED) Referrals: Allison Mendez NP [Primary Care Provider] - 1 week Discharge Date/Time: 12/01/23 11:30
== END 2023-12-01 11:30 | disposition home or self-care (01) ==
PROVIDERS: Emergency Provider Emergency Medicine; PCP Nurse Practitioner
DX: S13.9XXA Sprain of joints and ligaments of unspecified parts of neck, initial encounter (principal); X58.XXXA Exposure to other specified factors, initial encounter; R74.8 Abnormal levels of other serum enzymes
CPT/HCPCS: 36415; 71045; 80053; 80076; 82977; 83735; 84484; 84703; 85025; 85378; 93005; 99285

== ENCOUNTER 2023-12-03 07:02 | Outpatient (OUT) | payer OTHER, SELFPAY ==
--- NOTE | 2023-12-03 07:05 | US_ITS ---
The [address] [address] Patient Name: DENISHA MALDONADO MRN: [id number] date: 1985 Sex: F Assigned Patient Location: US Current Patient Location: US Accession/Order Number: [id number] Exam Date: 12/03/2023 07:08 Report Date: 12/03/2023 07:59 At the request of: JULIANA BUTCHER Procedure: US right upper quadrant EXAM: US right upper quadrant HISTORY: Elevated alkaline phosphatase level R74.8 COMPARISON: None. TECHNIQUE: Grayscale, color and Doppler FINDINGS: The liver is normal in size, contour and echotexture measuring 18.3 cm in length. No focal hepatic mass. Hepatopedal flow in the main portal vein. The gallbladder is normal in size. The wall measures 1.3 mm. Negative sonographic Cabral sign. The common bile duct measures 2 mm. Visualized pancreas is normal The right kidney is normal measuring 11.0 x 5.2 x 4.4 cm No ascites US/US right upper quadrant IMPRESSION: No acute abnormality Electronically authenticated by: VERO ATKINS Date: 12/03/2023 07:59
--- OUTSIDE RECORDS SUMMARY | 2023-12-03 07:05 | XMS_ITS | CCD ---
Author Organization [facility] Care Team Providers Care Building Supervisor Name Role Phone Katrin LIMON, Dr. Chandler Pryor Attending Unavailable Katrin LIMON, Dr. Chandler Pryor Referring Unavailable Aichholz, Mrs. Allison Bullock Primary Care Unavailab le VanessaAllison Ara Unavailable Unavailable Unavailable AICHHOLZ, HAND ALTERATIONS TAILOR ALLISON Consulting Unavailable AICHHOLZ, HAND ALTERATIONS TAILOR ALLISON Attending Unavailable AICHHOLZ, HAND ALTERATIONS TAILOR ALLISON Primary Care Unavailable AICHHOLZ, HAND ALTERATIONS TAILOR ALLISON Admitting Unavailable AICHHOLZ, HAND ALTERATIONS TAILOR ALLISON Consulting Unavailable AICHHOLZ, HAND ALTERATIONS TAILOR ALLISON Attending Unavailable AICHHOLZ, HAND ALTERATIONS TAILOR ALLISON Primary Care Unavailable AICHHOLZ, HAND ALTERATIONS TAILOR ALLISON Admitting Unavailable AICHHOLZ, HAND ALTERATIONS TAILOR ALLISON Consulting Unavailable AICHHOLZ, HAND ALTERATIONS TAILOR ALLISON Attending Unavailable AICHHOLZ, HAND ALTERATIONS TAILOR ALLISON Admitting Unavailable AICHHOLZ, HAND ALTERATIONS TAILOR ALLISON Primary Care Unavailable FAWWAD, MEI H Admitting Unavailable AICHHOLZ, HAND ALTERATIONS TAILOR ALLISON Primary Care Unavailable VERO WILSON Consulting Unavailable FAWWAD, MEI H Attending Unavailable FAWWAD, MEI H Consulting Unavailable AICHHOLZ, HAND ALTERATIONS TAILOR ALLISON Consulting Unavailable AICHHOLZ, HAND ALTERATIONS TAILOR ALLISON Attending Unavailable AICHHOLZ, HAND ALTERATIONS TAILOR ALLISON Admitting Unavailable AICHHOLZ, HAND ALTERATIONS TAILOR ALLISON Primary Care Unavailable DR ZINA GREGORY Consulting Unavailable JESSE HATCH Attending Unavailable JESSE HATCH Admitting Unavailable AICHHOLZ, HAND ALTERATIONS TAILOR ALLISON Primary Care Unavailable JESSE HATCH Consulting Unavailable AICHHOLZ, HAND ALTERATIONS TAILOR ALLISON Primary Care Unavailable JESSE HATCH Attending Unavailable JESSE HATCH Admitting Unavailable JESSE HATCH Consulting Unavailable Lali Patel Consulting Unavailable AICHHOLZ, HAND ALTERATIONS TAILOR ALLISON Primary Care Unavailable MILLY, DR VERO De Oliveira Consulting Unavailable PAY ., DR PONCE Attending Unavailable PAY ., DR PONCE Admitting Unavailable PAY ., DR PONCE Consulting Unavailable AICHHOLZ, HAND ALTERATIONS TAILOR ALLISON Admitting Unavailable AICHHOLZ, HAND ALTERATIONS TAILOR ALLISON Attending Unavailable AICHHOLZ, HAND ALTERATIONS TAILOR ALLISON Primary Care Unavailable AICHHOLZ, HAND ALTERATIONS TAILOR ALLISON Attending Unavailable AICHHOLZ, HAND ALTERATIONS TAILOR ALLISON Admitting Unavailable AICHHOLZ, HAND ALTERATIONS TAILOR ALLISON Primary Care Unavailable MILLY, DR VERO De Oliveira Consulting Unavailable AICHHOLZ, HAND ALTERATIONS TAILOR ALLISON Consulting Unavailable AICHHOLZ, HAND ALTERATIONS TAILOR ALLISON Primary Care Unavailable BELPRE, DR VERO De Oliveira Consulting Unavailable FAWWAD, MEI H Attending Unavailable FAWWAD, MEI H Admitting Unavailable FAWWAD, MEI H Consulting Unavailable AICHHOLZ, HAND ALTERATIONS TAILOR ALLISON Admitting Unavailable AICHHOLZ, HAND ALTERATIONS TAILOR ALLISON Primary Care Unavailable AICHHOLZ, HAND ALTERATIONS TAILOR ALLISON Consulting Unavailable AICHHOLZ, HAND ALTERATIONS TAILOR ALLISON Attending Unavailable AICHHOLZ, HAND ALTERATIONS TAILOR ALLISON Admitting Unavailable AICHHOLZ, HAND ALTERATIONS TAILOR ALLISON Primary Care Unavailable AICHHOLZ, HAND ALTERATIONS TAILOR ALLISON Consulting Unavailable AICHHOLZ, HAND ALTERATIONS TAILOR ALLISON Attending Unavailable Unavailable Primary Care Provider Unavailabl e Aichholz CHEESE WRAPPER-HAND ALTERATIONS TAILOR, Allison J Primary Care Provider JOANN MAHMOOD Referring Unavailable AICHHOLZ, ALLISON J Primary Care Unavailable TAQUERIA SOLIS Referring Unavailable AICHHOLZ, ALLISON J Primary Care Unavailable ANGELINE, JENNIFER KAMALES Referring Unavaila ble AICHHOLZ, ALLISON ARA Referring Un[facility] Attending Unavaila ble Unavailable [...] CAPS] Drug Allergy 2 Other: See Comments [facility] (1 source) gabapentin Drug Allergy [facility] Repository (3 sources) hydroCHLOROthiaz ney; Translations: [HYDROCHLOROTHIA ZIDE] Drug Allergy [address] [facility] Repository Medications Current Medications Medication Drug [...] Start: 07-09-2021 take 1 capsule by mo [facility] every twenty-four hours in the morning verapamiL [...] on above: Take 1 capsule by [facility] every afternoon. 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 Comment on above: Performed By: #### P INR, 75156-7 #### [facility] ([id number]) [address] [place] [address] #### CMP, FEPR, 2276-4, CBCA #### [facility] ([id number]) [address] [facility] [place] [address] aPTT Coag (Bld) [Time] 35 s Normal -37 [facility] Comment on above: Performed By: #### P INR, 76129-0 #### [facility] ([id number]) [address] [place] [address] #### CMP, FEPR, 2276-4, CBCA #### [facility] ([id number]) [address], [address] [place] [address] PT Coag (PPP) [Time] 11.8 s Normal 9.8-13.[address] [facility] Comment on above: Performed By: #### P INR, 21464-6 #### [facility] ([id number]) [address] [place] [address] #### CMP, FEPR, 2276-4, CBCA #### [facility] ([id number]) [address] [facility], [address] [place] [address] Coagulation factor IX activi ty actual/normal Coag (PPP) [Relative time]on 07-24-2023 FACTOR 9 ASSAY 134 % act Normal 65-150 [facility] Comment on above: Performed By: #### P INR, 28044-5 #### [facility] ([id number]) [address] [place] [address] #### CMP, FEPR, 6-4, CBCA #### [facility] ([id number]) [address] [facility], [address] [place] [address] Coagulation factor VIII acti vity actual/normal Coag (PPP) [Relative time]on 07-24-2023 FACTOR 8 ASSAY 120 % act Normal 50-150 [facility] Comment on above: Performed By: #### P INR, 27303-6 #### [facility] ([id number]) [address] [place] [address] #### CMP, FEPR, 6-4, CBCA #### [facility] ([id number]) [address], [address] [place] [address] Coagulation factor XI activi ty actual/normal Coag (PPP) [Relative time]on 07-24-2023 FACTOR 11 ASSAY 153 % act High 65-150 [facility] Comment on above: Performed By: #### P INR, 64150-6 #### [facility] ([id number]) [address] [place] [address] 19182 #### CMP, FEPR, 6-4, CBCA #### [facility] ([id number]) [address], [address] [place] [address] Coagulation factor XII activ ity actual/normal Coag (PPP) [Relative time]on 07-24-2023 FACTOR 12 ASSAY 86 % act Normal 50-150 [facility] Comment on above: Performed By: #### P INR, 37312-0 #### [facility] ([id number]) [address] [place] [address] 07359 #### CMP, FEPR, 6-4, CBCA #### [facility] ([id number]) [address], [address] [place] [address] [facility] ORDERon 024 TEST NAME [id number] VWF COLLAGEN III BINDING NACIT PLASMA Normal [facility] Comment on above: Result Comment: Maria Alejandra ected on 07/14 AT 1430: Previously reported as [id number] VWF COLLAGEN III BINDING Performed By: #### P INR, 23304-4 #### [facility] ([id number]) [address] [place] [address] 95[address] #### CMP, FEPR, 6-4, CBCA #### [facility] ([id number]) [address], [address] [place] [address] TEST NAME [id number] VWF GPIBM ACTIVITY NACIT PLASMA Normal [facility] Comment on above: Performed By: #### P INR, 53372-4 #### [facility] ([id number]) [address] [place] [address] 49840 #### CMP, FEPR, 6-4, CBCA #### [facility] ([id number]) [address], [address] [place] [address] TEST RESULT SEE NOTE Normal [facility] Comment on above: Result Comment: NOTE Test name Result Flag Units RefIntvl VWF Collagen III Binding 110 IU/dL 50-203 For additional information, please visit [email or web address] This test was developed and its performance characteristics determined by [facility]. It has not been cleared or approved by the [place] Food and Drug Administration. This test is used for clinical purposes. It should not be regarded as investigational or for research. This laboratory is certified under the Clinical Laboratory Improvement Amendments (CLIA) as qualified to perform high complexity clinical laboratory testing. Performed by: [facility]. [address] [place] [address] Performed By: #### P INR, 31588-6 #### [facility] ([id number]) [address] [place] [address], [place] [address] #### CMP, FEPR, 2276-4, CBCA #### [facility] ([id number]) [address], [address] [place] [address] Result Comment: NOTE Test name Result Flag Units RefIntvl VWF GPIbM Activity 86 IU/dL 52-180 For additional information, please visit [email or web address] This test was developed and its performance characteristics determined by [facility]. It has not been cleared or approved by the [place] Food and Drug Administration. This test is used for clinical purposes. It should not be regarded as investigational or for research. This laboratory is certified under the Clinical Laboratory Improvement Amendments (CLIA) as qualified to perform high complexity clinical laboratory testing. Performed by: [facility]. [address] [address] CBC AND AUTO DIFFon 07-13-19 ABSOLUTE BASOPHIL 0.0 X10E9/L Normal 0.0-0.2 [facility] Comment on above: Performed By: #### P INR, 44412-1 #### [facility] ([id number]) [address] [place] [address] #### CMP, FEPR, 2276-4, CBCA #### [facility] ([id number]) [address] [place] [address], [address] [place] [address] ABSOLUTE NEUTROPHIL 5.0 X10E9/L Normal 1.5-6.[address] [facility] Comment on above: Performed By: #### P INR, 81880-4 #### [facility] ([id number]) [address] [place] [address] #### CMP, FEPR, 2276-4, CBCA #### [facility] ([id number]) [address] [place] [address], [address] [place] [address] Basophils/100 WBC (Bld) 0.3 % Normal [facility] Comment on above: Performed By: #### P INR, 51080-8 #### [facility] ([id number]) [address] [place] [address] #### CMP, FEPR, 2276-4, CBCA #### [facility] ([id number]) [address] [facility] [place] [address] Eosinophils (Bld) [#/Vol] 0.1 10*3/uL Normal 0.0-0.4 [facility] Comment on above: Performed By: #### P INR, 38918-8 #### [facility] ([id number]) [address] [place] [address] #### CMP, FEPR, 2276-4, CBCA #### [facility] ([id number]) [address] [address] Eosinophils/100 WBC (Bld) 1.3 % Normal [facility] Comment on above: Performed By: #### P INR, 02661-7 #### [facility] ([id number]) [address] [place] [address]49 #### CMP, FEPR, 2276-4, CBCA #### [facility] ([id number]) [address] [facility] [address] [place] [address] Erythrocyte distribution width (RBC) [Ratio] 13.2 % Normal 11.5-15.0 [facility] Comment on above: Performed By: #### P INR, 69072-5 #### [facility] ([id number]) [address] [place] [address] 77427 #### CMP, FEPR, 2276-4, CBCA #### [facility] ([id number]) [address] [place] [address] Hematocrit (Bld) [Volume fraction] 42.4 % Normal 35-47 [facility] Comment on above: Performed By: #### P INR, 74281-5 #### [facility] ([id number]) [address] [place] [address] #### CMP, FEPR, 2276-4, CBCA #### [facility] ([id number]) [address] [place] [address] [address] [place] [address] Hemoglobin (Bld) [Mass/Vol] 13.9 g/dL Normal 11.7-15.5 [facility] Comment on above: Performed By: #### P INR, 77557-5 #### [facility] ([id number]) [address] [place] [address]290 #### CMP, FEPR, 2276-4, CBCA #### [facility] ([id number]) [address] [facility], [address] [place] [address] Lymphocytes (Bld) [#/Vol] 2.0 10*3/uL Normal 1.0-3.5 [facility] Comment on above: Performed By: #### P INR, 45938-1 #### [facility] ([id number]) [address] [place] [address] #### CMP, FEPR, 2276-4, CBCA #### [facility] ([id number]) [address] [place] [address], [address] [place] [address] Lymphocytes/100 WBC (Bld) 26.7 % Normal [facility] Comment on above: Performed By: #### P INR, 41688-0 #### [facility] ([id number]) [address] [place] [address]50 #### CMP, FEPR, 2276-4, CBCA #### [facility] ([id number]) [address] [place] [address], [address] [place] [address] MCH (RBC) [Entitic mass] 29.6 pg Normal 27-34 [facility] Comment on above: Performed By: #### P INR, 25205-4 #### [facility] ([id number]) [address] [place] [address] 99590 #### CMP, FEPR, 2276-4, CBCA #### [facility] ([id number]) [address] [place] [address], [address] [place] [address] MCHC (RBC) [Mass/Vol] 32.8 g/dL Normal 32-36 [facility] Comment on above: Performed By: #### P INR, 75581-3 #### [facility] ([id number]) [address] [place] [address] 24902 #### CMP, FEPR, 2276-4, CBCA #### [facility] ([id number]) [address], [address] [place] [address] MCV (RBC) [Entitic vol] 90 fL Normal 80-100 [facility] Comment on above: Performed By: #### P INR, 41602-5 #### [facility] ([id number]) [address] [place] [address]663 #### CMP, FEPR, 6-4, CBCA #### [facility] ([id number]) [address] [facility] [place] [address] Monocytes (Bld) [#/Vol] 0.5 10*3/uL Normal 0-0.9 [facility] Comment on above: Performed By: #### P INR, 59958-5 #### [facility] ([id number]) [address] [place] [address]87 #### CMP, FEPR, 2276-4, CBCA #### [facility] ([id number]) [address] [facility], [address] [place] [address] Monocytes/100 WBC (Bld) 6.9 % Normal [facility] Comment on above: Performed By: #### P INR, 71947-1 #### [facility] ([id number]) [address] [place] [address]09 #### CMP, FEPR, 2276-4, CBCA #### [facility] ([id number]) [address], [address] [place] [address] Neutrophils/100 WBC (Bld) 64.8 % Normal [facility] Comment on above: Performed By: #### P INR, 58640-8 #### [facility] ([id number]) [address] [place] [address] #### CMP, FEPR, 2276-4, CBCA #### [facility] ([id number]) [address] [facility], [address] [place] [address] Platelet mean volume (Bld) [Entitic vol] 11.5 fL Normal 7-12 [facility] Comment on above: Performed By: #### P INR, 53295-3 #### [facility] ([id number]) [address] [place] [address] 80324 #### CMP, FEPR, 2276-4, CBCA #### [facility] ([id number]) [address] [place] [address], [address] [place] [address] Platelets (Bld) [#/Vol] 205 10*3/uL Normal 150-450 [facility] Comment on above: Performed By: #### P INR, 63876-7 #### [facility] ([id number]) [address] [place] [address] 92396 #### CMP, FEPR, 2276-4, CBCA #### [facility] ([id number]) [address] [facility], [address] [place] [address] RBC COUNT 4.70 X10E12/L Normal 3.80-5.20 [facility] Comment on above: Performed By: #### P INR, 27860-5 #### [facility] ([id number]) [address] [place] [address]61 #### CMP, FEPR, 2276-4, CBCA #### [facility] ([id number]) [address] [facility] [place] [address] WBC (Bld) [#/Vol] 7.7 10*3/uL Normal 4.0-11.0 [facility] Comment on above: Performed By: #### P INR, 97412-4 #### [facility] ([id number]) [address] [place] [address]16 #### CMP, FEPR, 2276-4, CBCA #### [facility] ([id number]) [address], [address] [place] [address] COMPREHENSIVE METABOLIC PANE Drew 07-13-2023 Albumin [Mass/Vol] 4.6 g/dL Normal 3.2-5.3 [facility] Comment on above: Performed By: #### P INR, 12513-8 #### [facility] ([id number]) [address] [place] [address]8450 #### CMP, FEPR, 2276-4, CBCA #### [facility] ([id number]) [address], [address] [place] [address] ALP [Catalytic activity/Vol] 118 U/L Normal 39-130 [facility] Comment on above: Performed By: #### P INR, 61775-3 #### [facility] ([id number]) [address] [place] [address] 58971 #### CMP, FEPR, 6-4, CBCA #### [facility] ([id number]) [address], [address] [place] [address] ALT [Catalytic activity/Vol] 12 U/L Normal 0-31 [facility] Comment on above: Performed By: #### P INR, 64336-3 #### [facility] ([id number]) [address] [place] [address] 03938 #### CMP, FEPR, 2276-4, CBCA #### [facility] ([id number]) [address], [address] [place] [address] Anion gap [Moles/Vol] 10 mmol/L Normal 5-15 [facility] Comment on above: Performed By: #### P INR, 73531-0 #### [facility] ([id number]) [address] [place] [address] 02425 #### CMP, FEPR, 2276-4, CBCA #### [facility] ([id number]) [address], [address] [place] [address] AST [Catalytic activity/Vol] 13 U/L Normal 0-41 [facility] Comment on above: Performed By: #### P INR, 87074-4 #### [facility] ([id number]) [address] [place] [address] 33873 #### CMP, FEPR, 2276-4, CBCA #### [facility] ([id number]) [address], [address] [place] [address] Bilirubin [Mass/Vol] 0.4 mg/dL Normal 0.3-1.[address] [facility] Comment on above: Performed By: #### P INR, 47122-8 #### [facility] ([id number]) [address] [place] [address]322 #### CMP, FEPR, 6-4, CBCA #### [facility] ([id number]) [address], [address] [place] [address] Calcium [Mass/Vol] 9.8 mg/dL Normal 8.5-10.5 [facility] Comment on above: Performed By: #### P INR, 25240-8 #### [facility] ([id number]) [address] [place] [address] 22021 #### CMP, FEPR, 6-4, CBCA #### [facility] ([id number]) [address], [address] [place] [address] Chloride [Moles/Vol] 105 mmol/L Normal 98-[address] [facility] Comment on above: Performed By: #### P INR, 52494-6 #### [facility] ([id number]) [address] [place] [address]326 #### CMP, FEPR, 2276-4, CBCA #### [facility] ([id number]) [address], [address] [place] [address] CO2 [Moles/Vol] 27 mmol/L Normal 22-32 [facility] Comment on above: Performed By: #### P INR, 92142-1 #### [facility] ([id number]) [address] [place] [address] 57228 #### CMP, FEPR, 6-4, CBCA #### [facility] ([id number]) [address], [address] [place] [address] Creatinine [Mass/Vol] 0.75 mg/dL Normal 0.40-1.00 [facility] Comment on above: Result Comment: METH OD TRACEABLE TO IDMS STANDARD Performed By: #### P INR, 56639-9 #### [facility] ([id number]) [address] [place] [address]7917 #### CMP, FEPR, 6-4, CBCA #### [facility] ([id number]) [address] [place] [address] eGFR (CKD-EPI) NON-RACE DEPENDENT >90 Normal >59 [facility] Comment on above: Result Comment: Reported eGFR is based on the CKD-EPI 2021 equation that does not use a race coefficient. Performed By: #### P INR, 93176-5 #### [facility] ([id number]) [address] [place] [address]33 #### CMP, FEPR, 2276-4, CBCA #### [facility] ([id number]) [address] [place] [address] Glucose [Mass/Vol] 87 mg/dL Normal 65-99 [facility] Comment on above: Performed By: #### P INR, 76641-9 #### [facility] ([id number]) [address] [place] [address] 9[address]30 #### CMP, FEPR, 2276-4, CBCA #### [facility] ([id number]) [address], [address] [place] [address] Potassium [Moles/Vol] 4.0 mmol/L Normal 3.5-5.0 [facility] Comment on above: Performed By: #### P INR, 85427-5 #### [facility] ([id number]) [address] [place] [address]1946 #### CMP, FEPR, 2276-4, CBCA #### [facility] ([id number]) [address], [address] [place] [address] Protein [Mass/Vol] 7.7 g/dL Normal 6.0-8.0 [facility] Comment on above: Performed By: #### P INR, 14940-8 #### [facility] ([id number]) [address] [place] [address] 20688 #### CMP, FEPR, 2276-4, CBCA #### [facility] ([id number]) [address], [address] [place] [address] Sodium [Moles/Vol] 142 mmol/L Normal 134-146 [facility] Comment on above: Performed By: #### P INR, 81853-0 #### [facility] ([id number]) [address] [place] [address] #### CMP, FEPR, 2276-4, CBCA #### [facility] ([id number]) [address], [address] [place] [address] Urea nitrogen [Mass/Vol] 13 mg/dL Normal 5-23 [facility] Comment on above: Performed By: #### P INR, 04753-0 #### [facility] ([id number]) [address] [place] [address] #### CMP, FEPR, 6-4, CBCA #### [facility] ([id number]) [address], [address] [place] [address] Coagulation factor VIII acti vity actual/normal Coag (PPP) [Relative time]on 07-13-2023 FACTOR 8 ASSAY 97 % act Normal 50-150 [facility] Comment on above: Performed By: #### P INR, 07555-7 #### [facility] ([id number]) [address] [place] [address] #### CMP, FEPR, 2275-4, CBCA #### [facility] ([id number]) [address], [address] [place] [address] FERRITINon 07-13-2023 Ferritin [Mass/Vol] 60 ng/mL Normal 11-307 [facility] Comment on above: Performed By: #### P INR, 29753-9 #### [facility] ([id number]) [address] [place] [address]14 #### CMP, FEPR, 2275-4, CBCA #### [facility] ([id number]) [address], [address] [place] [address] IRON PROFILEon 07-13-2023 Iron [Mass/Vol] 66 ug/dL Normal 50-170 [facility] Comment on above: Performed By: #### P INR, 08417-6 #### [facility] ([id number]) [address] [place] [address] 33678 #### CMP, FEPR, 6-4, CBCA #### [facility] ([id number]) [address], [address] [place] [address] IRON BINDING 318 ug/dL Normal 250-425 [facility] Comment on above: Performed By: #### P INR, 29957-2 #### [facility] ([id number]) [address] [place] [address] 93181 #### CMP, FEPR, 2276-4, CBCA #### [facility] ([id number]) [address], [address] [place] [address] IRON SATURATION 21 % SATURATION Normal 15-[address] [facility] Comment on above: Performed By: #### P INR, 35069-8 #### [facility] ([id number]) [address] [place] [address] 21528 #### CMP, FEPR, 2276-4, CBCA #### [facility] ([id number]) [address] [facility], [address] [place] [address] Laboratory comment Aftab (Repo rt)on 07-13-2023 UNLISTED LAB TEST Sent to reference lab Normal [facility] Comment on above: Performed By: #### A GO #### [facility] ([id number]) [address] [place] [address] Performed By: #### P INR, 66136-1 #### [facility] ([id number]) [address] [place] [address] 85586 #### CMP, FEPR, 2276-4, CBCA #### [facility] ([id number]) [address] [facility], [address] [place] [address] PROTIME AND INRon 07-13-2023 INR Coag (PPP) [Relative time] 1.0 {INR} Normal 0.8-1.1 [facility] Comment on above: Performed By: #### P INR, 88631-4 #### [facility] ([id number]) [address] [place] [address] #### CMP, FEPR, 2276-4, CBCA #### [facility] ([id number]) [address], [address] [place] [address] PT Coag (PPP) [Time] 12.0 s Normal 9.8-13.[address] [facility] Comment on above: Result Comment: NEW REFERENCE RANGE Performed By: #### P INR, 19482-1 #### [facility] ([id number]) [address] [place] [address] #### CMP, FEPR, 2276-4, CBCA #### [facility] ([id number]) [address] [facility] [place] [address] aPTT Coag (PPP) [Time]on aPTT Coag (Bld) [Time] 46 s High 26-37 [facility] Comment on above: Result Comment: NEW REFERENCE RANGE Performed By: #### P INR, 37935-2 #### [facility] ([id number]) [address] [place] [address] 16078 #### CMP, FEPR, 2276-4, CBCA #### [facility] ([id number]) [address] [facility], [address] [place] [address] vWf Ag IA Qn (PPP)on 024 [employer] 118 % Normal 50-150 [facility] Comment on above: Result Comment: It has [...] 69:1691, 1987 Performed By: #### P INR, 11192-9 #### [facility] ([id number]) [address] [place] [address] #### CMP, FEPR, 2276-4, CBCA #### [facility] ([id number]) [address] [facility], [address] [place] [address] vWf.activity actual/normal I A (PPP) [Relative ratio]on 07-13-2023 von Willebrand Factor Activity 88 % Normal 50-200 [facility] Comment on above: Performed By: #### P INR, 14376-8 #### [facility] ([id number]) [address] [place] [address] 22892 #### CMP, FEPR, 2276-4, CBCA #### [facility] ([id number]) [address] [place] [address], [address] [place] [address] 25(OH)D3 [facility] 2022 25-hydroxyvitamin D3 [Mass/Vol] 14.6 ng/mL Low 31.0-80.0 [facility] Comment on above: Order Comment: Speci men Type: BLOOD SPECIMEN Ordering Facility: [facility] Address: [address] [place] [address] Result Comment: Clas sification of 25 [place] Vitamin D status: Deficiency/Insufficiency: < or = 30 ng/ml. Sufficiency/Optimal Levels: 31-80 ng/mL Toxicity: > 100 ng/mL. Test performed by chemiluminescent immunoassay. Performed By: #### 1 989-3 #### [facility] CLIA [id number] [address] [facility] [place] [address] [place] CBC W Auto Differential pane l (Bld)on 02-17-2023 Basophils (Bld) [#/Vol] 0.03 10*3/uL <0.11 k/uL [facility] Basophils/100 WBC (Bld) 0.3 % [facility] Differential cell count method Nom (Bld) Auto [facility] Eosinophils (Bld) [#/Vol] 0.12 10*3/uL <0.46 k/uL [facility] Eosinophils/100 WBC (Bld) 1.2 % [facility] Erythrocyte distribution width (RBC) [Ratio] 12.7 % 11.5 - 15.0 % [facility] Hematocrit (Bld) [Volume fraction] 44.5 % 36.0 - 46.0 % [facility] Hemoglobin (Bld) [Mass/Vol] 14.4 g/dL 11.5 - 15.5 g/dL [facility] Immature granulocytes (Bld) [#/Vol] 0.03 10*3/uL <0.10 k/uL [facility] Immature granulocytes/100 WBC (Bld) 0.3 % [facility] Lymphocytes (Bld) [#/Vol] 1.93 10*3/uL 1.00 - 4.00 k/uL [facility] Lymphocytes/100 WBC (Bld) 19.7 % [facility] MCH (RBC) [Entitic mass] 30.3 pg 26.0 - 34.0 pg [facility] MCHC (RBC) [Mass/Vol] 32.4 g/dL 30.5 - 36.0 g/dL [facility] MCV (RBC) [Entitic vol] 93.5 fL 80.0 - 100.0 fL [facility] Monocytes (Bld) [#/Vol] 0.78 10*3/uL <0.87 k/uL [facility] Monocytes/100 WBC (Bld) 7.9 % [facility] Neutrophils (Bld) [#/Vol] 6.93 10*3/uL 1.45 - 7.50 k/uL [facility] Neutrophils/100 WBC (Bld) 70.6 % [facility] Nucleated RBC (Bld) [#/Vol] <0.01 k/uL [facility] Nucleated RBC/100 WBC (Bld) [Ratio] 0.0 /100 WBC [facility] Platelet mean volume (Bld) [Entitic vol] 13.2 fL High 9.0 - 12.7 fL [facility] Platelets (Bld) [#/Vol] 245 10*3/uL 150 - 400 k/uL [facility] RBC (Bld) [#/Vol] 4.76 10*6/uL 3.90 - 5.2 0 m/uL [facility] WBC (Bld) [#/Vol] 9.82 10*3/uL 3.70 - 11. 00 k/uL [facility] Basophils (Bld) [#/Vol] 0.03 10*3/uL Normal <0.11 [facility] Comment on above: Order Comment: Speci men Type: BLOOD SPECIMEN Ordering Facility: [facility] Address: [address] [place] [address] Performed By: #### 5 7021-8 #### [facility] CLIA [id number] [address] [place] [address] [place] Basophils/100 WBC (Bld) 0.3 % Normal [facility] Comment on above: Order Comment: Speci men Type: BLOOD SPECIMEN Ordering Facility: [facility] Address: [address] [place] [address] Performed By: #### 5 7021-8 #### [facility] CLIA [id number] [address] [place] [address] [place] Differential cell count method Nom (Bld) Auto Normal [facility] Comment on above: Order Comment: Speci men Type: BLOOD SPECIMEN Ordering Facility: [facility] Address: [address] [place] [address] Performed By: #### 5 7021-8 #### [facility] CLIA [id number] [address] [place] [address] [place] Eosinophils (Bld) [#/Vol] 0.12 10*3/uL Normal <0.46 [facility] Comment on above: Order Comment: Speci men Type: BLOOD SPECIMEN Ordering Facility: [facility] Address: [address] [place] [address] Performed By: #### 5 7021-8 #### [facility] CLIA [id number] [address] [place] [address] [place] Eosinophils/100 WBC (Bld) 1.2 % Normal [facility] Comment on above: Order Comment: Speci men Type: BLOOD SPECIMEN Ordering Facility: [facility] Address: [address] [place] [address] Performed By: #### 5 7021-8 #### [facility] CLIA [id number] [address] [place] [address] [place] Erythrocyte distribution width (RBC) [Ratio] 12.7 % Normal 11.5-15.0 [facility] Comment on above: Order Comment: Speci men Type: BLOOD SPECIMEN Ordering Facility: [facility] Address: [address] [place] [address] Performed By: #### 5 7021-8 #### [facility] CLIA [id number] [address] [place] [address] [place] Hematocrit (Bld) [Volume fraction] 44.5 % Normal 36.0-46.0 [facility] Comment on above: Order Comment: Speci men Type: BLOOD SPECIMEN Ordering Facility: [facility] Address: [address] [place] [address] Performed By: #### 5 7021-8 #### [facility] CLIA [id number] [address] [place] [address] [place] Hemoglobin (Bld) [Mass/Vol] 14.4 g/dL Normal 11.5-15.5 [facility] Comment on above: Order Comment: Speci men Type: BLOOD SPECIMEN Ordering Facility: [facility] Address: [address] [place] [address] Performed By: #### 5 7021-8 #### [facility] CLIA [id number] [address] [place] [address] [place] Immature granulocytes (Bld) [#/Vol] 0.03 10*3/uL Normal <0.10 [facility] Comment on above: Order Comment: Speci men Type: BLOOD SPECIMEN Ordering Facility: [facility] Address: [address] [place] [address] Performed By: #### 5 7021-8 #### [facility] CLIA [id number] [address] [place] [address] [place] Immature granulocytes/100 WBC (Bld) 0.3 % Normal [facility] Comment on above: Order Comment: Speci men Type: BLOOD SPECIMEN Ordering Facility: [facility] Address: [address] [place] [address] Performed By: #### 5 7021-8 #### [facility] CLIA [id number] [address] [place] [address] [place] Lymphocytes (Bld) [#/Vol] 1.93 10*3/uL Normal 1.00-4.00 [facility] Comment on above: Order Comment: Speci men Type: BLOOD SPECIMEN Ordering Facility: [facility] Address: [address] [place] [address] Performed By: #### 5 7021-8 #### [facility] CLIA [id number] [address] [place] [address] [place] Lymphocytes/100 WBC (Bld) 19.7 % Normal [facility] Comment on above: Order Comment: Speci men Type: BLOOD SPECIMEN Ordering Facility: [facility] Address: [address] [place] [address] Performed By: #### 5 7021-8 #### [facility] CLIA [id number] [address] [place] [address] [place] MCH (RBC) [Entitic mass] 30.3 pg Normal 26.0-34.0 [facility] Comment on above: Order Comment: Speci men Type: BLOOD SPECIMEN Ordering Facility: [facility] Address: [address] [place] [address] Performed By: #### 5 7021-8 #### [facility] CLIA [id number] [address] [place], [place] [address] [place] MCHC (RBC) [Mass/Vol] 32.4 g/dL Normal 30.5-36.0 [facility] Comment on above: Order Comment: Speci men Type: BLOOD SPECIMEN Ordering Facility: [facility] Address: [address] [place] [address] Performed By: #### 5 7021-8 #### [facility] CLIA [id number] [address] [place] [address] [place] MCV (RBC) [Entitic vol] 93.5 fL Normal 80.0-100.0 [facility] Comment on above: Order Comment: Speci men Type: BLOOD SPECIMEN Ordering Facility: [facility] Address: [address] [place] [address] Performed By: #### 5 7021-8 #### [facility] CLIA [id number] [address] [place] [address] [place] Monocytes (Bld) [#/Vol] 0.78 10*3/uL Normal <0.87 [facility] Comment on above: Order Comment: Speci men Type: BLOOD SPECIMEN Ordering Facility: [facility] Address: [address] [place] [address] Performed By: #### 5 7021-8 #### [facility] CLIA [id number] [address] [place] [address] [place] Monocytes/100 WBC (Bld) 7.9 % Normal [facility] Comment on above: Order Comment: Speci men Type: BLOOD SPECIMEN Ordering Facility: [facility] Address: [address] [place] [address] Performed By: #### 5 7021-8 #### [facility] CLIA [id number] [address] [place] [address] [place] Neutrophils (Bld) [#/Vol] 6.93 10*3/uL Normal 1.45-7.50 [facility] Comment on above: Order Comment: Speci men Type: BLOOD SPECIMEN Ordering Facility: [facility] Address: [address] [place] [address] Performed By: #### 5 7021-8 #### [facility] CLIA [id number] [address] [place] [address] [place] Neutrophils/100 WBC (Bld) 70.6 % Normal [facility] Comment on above: Order Comment: Speci men Type: BLOOD SPECIMEN Ordering Facility: [facility] Address: [address] [place] [address] Performed By: #### 5 7021-8 #### [facility] CLIA [id number] [address] [place] [address] [place] Nucleated RBC (Bld) [#/Vol] 10*3/uL Normal <0.01 [facility] Comment on above: Order Comment: Speci men Type: BLOOD SPECIMEN Ordering Facility: [facility] Address: [address] [place] [address] Performed By: #### 5 7021-8 #### [facility] CLIA [id number] [address] [place] [address] [place] Nucleated RBC/100 WBC (Bld) [Ratio] 0.0 /100 WBC Normal [facility] Comment on above: Order Comment: Speci men Type: BLOOD SPECIMEN Ordering Facility: [facility] Address: [address] [place] [address] Performed By: #### 5 7021-8 #### [facility] CLIA [id number] [address] [place] [address] [place] Platelet mean volume (Bld) [Entitic vol] 13.2 fL High 9.0-12.7 [facility] Comment on above: Order Comment: Speci men Type: BLOOD SPECIMEN Ordering Facility: [facility] Address: [address] [place] [address] Performed By: #### 5 7021-8 #### [facility] CLIA [id number] [address] [place] [address] [place] Platelets (Bld) [#/Vol] 245 10*3/uL Normal 150-400 [facility] Comment on above: Order Comment: Shani kay Type: BLOOD SPECIMEN Ordering Facility: [facility] Address: [address] [place] [address] Result Comment: Resu lts checked and verified.No clot detected. Performed By: #### 5 7021-8 #### [facility] CLIA [id number] [address] [place] [address] [place] RBC (Bld) [#/Vol] 4.76 10*6/uL Normal 3.90-5.20 [facility] Comment on above: Order Comment: Shani kay Type: BLOOD SPECIMEN Ordering Facility: [facility] Address: [address] [place] [address] Performed By: #### 5 7021-8 #### [facility] CLIA [id number] [address] [place] [address] [place] WBC (Bld) [#/Vol] 9.82 10*3/uL Normal 3.70-11.00 [facility] Comment on above: Order Comment: Shani kay Type: BLOOD SPECIMEN Ordering Facility: [facility] Address: [address] [place] [address] Performed By: #### 5 7021-8 #### [facility] CLIA [id number] [address] [place] [address] [place] CNOVon 02-17-2023 CNOV Office Visit ([facility] ) DENISHA VELASCO ([id number]) 1985 F Date Time Provider Department 02/17/23 9:00 AM JENNIFER MARCUS During your visit today, we recorded the following information about you: Pulse Blood pressure Weight 96/minute 116/82 126.6 kg Jennifer Marcus MD 02/17/2023 10:02 AM Signed [facility] Date of Service: 02/17/2023 Patient: Denisha Velasco Medical Record: [id number] Last Rheumatology visit: None at [facility] History of Present Illness Denisha [...] (more content not included)... Normal [facility] VITAMIN D 25 HYDROXYon 02-17 25-hydroxyvitamin D3 [Mass/Vol] 14.6 ng/mL Low 31.0 - 80.0 ng/mL [facility] Vit B12 SerPl-mCncon 023 Cobalamin (Vitamin B12) [Mass/Vol] 347 pg/mL Normal 232-1245 [facility] Comment on above: Order Comment: Speci men Type: BLOOD SPECIMEN Ordering Facility: [facility] Address: [address] [place] [address] Performed By: #### 2 132-9 #### [facility] CLIA [id number] [address] [facility] SARS-CoV2 IgMon 07-07-2022 Comment Notes Normal [facility] Comment on above: Result Comment: Nega tive results to antibodies against SARS-CoV-2 are generally indicative of non-exposure to virus and lack of longevity of antibody response. Performed By: #### C VDABM #### [facility] [address] [place] [address] Dr. Karey Ordoñez Disclaimer Notes Normal [facility] Comment on above: Result Comment: This is a lab developed test. This test has been validated in accordance with [facility] guidelines and FDA guidance [...] due to past or present infection with xyh-MSGX-MuT-2 coronavirus strains, such as coronavirus HKU1, NL63, OC43, or 229E. Performed By: #### C VDABM #### [facility] [address] [place] [address] Dr. Karey Ordoñez Electronically Signed By Comment Normal [facility] Comment on above: Result Comment: Fernando Scales Performed By: #### C VDABM #### [facility] [address] [place] [address] Dr. Karey Ordoñez Methodology Comment [facility] Comment on above: Result Comment: Chem iluminescence Performed By: #### C VDABM #### [facility] [address] [place] [address] Dr. Karey Ordoñez References Notes Normal [facility] Comment on above: Result Comment: [...] application of serological tests in clinical practice. 10.1101/2019.03.18.82783813. Performed By: #### C VDABM #### [facility] [address] [place] [address] Dr. Karey Ordoñez Result Negative [facility] Comment on above: Performed By: #### C VDABM #### [facility] [address] [place] [address] Dr. Karey Ordoñez Value 0.03 COI [facility] Comment on above: Result Comment: <0.8 : Negative 0.8-<1.0: Indeterminate >=1.0: Positive Performed By: #### C VDABM #### [facility] [address] [address] [address] Karey Ordoñez SARS-CoV2 IgGon 07-04-2022 SARS-CoV-2 (COVID-19) IgG IA.rapid Ql (S/P/Bld) >800.0 Normal Neg <13.0 [facility] Comment on above: Performed By: #### C VDIGG #### [facility] [address] [address] [address] Karey Ordoñez SARS-CoV-2 (COVID-19) RNA RUBY+probe Ql (Unsp spec) Positive Normal [facility] Comment on above: Result Comment: Anti bodies against the SARS-CoV-2 spike protein, including the receptor binding domain (RBD) were detected. It is not yet known what level of antibody to SARS-CoV-2 spike protein correlates to immunity against developing symptomatic SARS-CoV-2 disease. This assay was performed using [employer](R) SARS-CoV-2 Trimeric S IgG assay. Performed By: #### C VDIGG #### [facility] [address] [place] [address] Dr. Karey Ordoñez Office Visit (Cardiology)on 06-30-2022 Follow-up visit Diagnoses/Problems Assessed Benign essential hypertension (401.1) (I10) Vertigo (780.4) (R42) Morbid obesity with BMI of 45.0-49.9, adult (278.01,V85.42) (E66.01,Z68.42) Never smoker Orders Morbid obesity with BMI of 45.0-49.9, adult Healthy Weight Tips; Status:Complete - Retrospective Authorization; Done: [id number] Some eating tips that can help you lose weight.; Status:Complete - Retrospective Authorization; Done: [id number] SocHx: Never smoker Tobacco Use Screening; Status:Complete; Done: [id number] Patient Instructions Please bring all medicines, vitamins, [...] Recorded: 30Jun2022 09:45AM Heart Rate74, R Radial Zsinnlrw568, RUE, Sitting Telrlnwas70, RUE, Sitting Height5 ft 3 in Jrnove634 lb BMI Lsodfwnaqa44.42 kg/m2 BSA Calculated2.23 Tobacco Useb) No PHQ-2 [...] . Abdomen: (more content not included)... Normal [employer] Tobacco Screening.on 023 Adult depression screening assessment No [facility] [employer] 250 DO Work Phone: Fall risk assessment a) No falls within the last year [facility] [employer] 250 DO Work Phone: Tobacco use status CPHS b) No [facility] [employer] 250 DO Work Phone: FREE T4on 05-12-2022 Free T4 [Mass/Vol] 1.11 ng/dL Normal 0.76-1.46 [facility] Comment on above: Performed By: #### F T4 #### [facility] [address] [place] [address] Dr. Karey Ordoñez GLYCOHEMOGLOBIN A1Con 2022 ADA RECOMMENDATION SEE BELOW Normal [facility] Comment on above: Result Comment: ADA RECOMMENDED LIMIT 4.0 - 6.0 ADA THERAPEUTIC TARGET < 7.0 ACTION SUGGESTED > 7.0 Performed By: #### F T4 #### [facility] [address] [place] [address] Dr. Karey Ordoñez Glucose [Mass/Vol] 114 mg/dL Normal [facility] Comment on above: Performed By: #### F T4 #### [facility] [address] [place] [address] Dr. Karey Ordoñez HbA1c (Bld) [Mass fraction] 5.6 % Normal 4.5-6.2 [facility] Comment on above: Performed By: #### F T4 #### [facility] [address] [place] [address] Dr. Karey Ordoñez PROF CHEM 8 (BAS METB)on Anion gap [Moles/Vol] 13.5 mmol/L Normal [facility] Comment on above: Performed By: #### T SH, BMP #### [facility] [address] [place] [address] Dr. Karey Ordoñez Calcium [Mass/Vol] 9.1 mg/dL Normal 8.5-10.1 [facility] Comment on above: Performed By: #### T SH, BMP #### [facility] [address] [place] [address] Dr. Karey Ordoñez Chloride [Moles/Vol] 103 mmol/L Normal 98-[address] [facility] Comment on above: Performed By: #### T SH, BMP #### [facility] [address] [place] [address] Dr. Karey Ordoñez CO2 [Moles/Vol] 26.7 mmol/L Normal 21.0-32.0 [facility] Comment on above: Performed By: #### T SH, BMP #### [facility] [address] [address] [address] Karey Ordoñez Creatinine [Mass/Vol] 0.79 mg/dL Normal 0.55-1.02 [facility] Comment on above: Performed By: #### T SH, BMP #### [facility] [address] [address] [address] Karey Ordoñez EGFR-AF ALGERIAN >60 Normal >=60 [facility] Comment on above: Performed By: #### T SH, BMP #### [facility] [address] [address] [address] Karey Ordoñez EGFR-NON AF ALGERIAN >60 Normal >=60 [facility] Comment on above: Performed By: #### T SH, BMP #### [facility] [address] [address] Dr. Karey Ordoñez Glucose [Mass/Vol] 94 mg/dL Normal 74-106 [facility] Comment on above: Performed By: #### T SH, BMP #### [facility] [address] [place] [address] Dr. Karey Ordoñez Potassium [Moles/Vol] 4.2 mmol/L Normal 3.5-5.1 [facility] Comment on above: Performed By: #### T SH, BMP #### [facility] [address] [place] [address] Dr. Karey Ordoñez Sodium [Moles/Vol] 139 mmol/L Normal 136-145 [facility] Comment on above: Performed By: #### T SH, BMP #### [facility] [address] [place] [address] Dr. Karey Ordoñez Urea nitrogen [Mass/Vol] 12.0 mg/dL Normal 7.0-18.0 [facility] Comment on above: Performed By: #### T SH, BMP #### [facility] [address] [place] [address] Dr. Karey Ordoñez Urea nitrogen/Creatinine [Mass ratio] 15.2 mg/mg Normal [facility] Comment on above: Performed By: #### T SH, BMP #### [facility] [address] [address] [address] Karey Ordoñez TSHon 05-12-2022 TSH 1.098 uIU/mL Normal 0.358-3.740 [facility] Comment on above: Performed By: #### T SH, BMP #### [facility] [address] [address] [address] Karey Ordoñez FREE T3on 02-06-2022 FREE T3 1.79 pg/mlL Critically low 2.18-3.98 [facility] Comment on above: Performed By: #### F T3, TSH #### [facility] [address] [address] [address] Karey Ordoñez FREE T4on 02-06-2022 Free T4 [Mass/Vol] 1.12 ng/dL Normal 0.76-1.46 [facility] Comment on above: Performed By: #### F T4 #### [facility] [address] [address] [address] Karey Ordoñez TSHon 02-06-2022 TSH 2.571 uIU/mL Normal 0.358-3.740 [facility] Comment on above: Performed By: #### F T3, TSH #### [facility] [address] [place] [address] Dr. Karey Ordoñez MRI BRAIN WO CONon [...] by: VERO ATKINS Date: 2022-01-22 13:49 Normal [facility] CT CSPINE WO CONon 2 CT CSPINE [...] LALI PATEL Date: 2022-01-18 10:22 Normal [facility] US CAROTID ART BILon 022 US [...] ZINA GREGORY Date: 2022-01-17 18:33 Normal [facility] CT HEAD WO CONon 01-15-2022 CT [...] by: VERO ATKINS Date: 2022-01-15 11:07 Normal [facility] MRI KNEE RT WO CONon 12-18-2 022 [...] by: VERO ATKINS Date: 2021-12-18 15:05 Normal [facility] XR KNEE RT 3Von 12-10-2021 XR KNEE [...] Date: 2021-12-10 06:40 Normal [facility] LIVER PROFILEon 10-29-2021 Albumin [Mass/Vol] 3.7 g/dL Normal 3.4-5.0 [facility] Comment on above: Performed By: #### F T4 #### [facility] [address] [place] [address] Dr. Karey Ordoñez Albumin/Globulin [Mass ratio] 0.9 {ratio} Normal [facility] Comment on above: Performed By: #### F T4 #### [facility] [address] [place] [address] Dr. Karey Ordoñez ALP [Catalytic activity/Vol] 111 U/L Normal 46-116 [facility] Comment on above: Performed By: #### F T4 #### [facility] [address] [place] [address] Dr. Karey Ordoñez ALT [Catalytic activity/Vol] 22 U/L Normal 14-59 [facility] Comment on above: Performed By: #### F T4 #### [facility] [address] [place] [address] Dr. Karey Ordoñez AST [Catalytic activity/Vol] 12 U/L Critically low 15-37 [facility] Comment on above: Performed By: #### F T4 #### [facility] [address] [place] [address] Dr. Karey Ordoñez BILI, CONJUGATED 0.1 mg/dL Normal 0.0-0.2 [facility] Comment on above: Performed By: #### F T4 #### [facility] [address] [place] [address] Dr. Karey Ordoñez Bilirubin [Mass/Vol] 0.5 mg/dL Normal 0.2-1.0 [facility] Comment on above: Performed By: #### F T4 #### [facility] [address] [place] [address] Dr. Karey Ordoñez Globulin (S) [Mass/Vol] 4.1 g/dL Normal [facility] Comment on above: Performed By: #### F T4 #### [facility] [address] [place] [address] Dr. Karey Ordoñez Protein [Mass/Vol] 7.8 g/dL Normal 6.4-8.2 [facility] Comment on above: Performed By: #### F T4 #### [facility] [address] [place] [address] Dr. Karey Ordoñez INSULINon 10-02-2021 Insulin 10.5 uIU/mL Normal 2.6-24.9 [facility] Comment on above: Performed By: #### I NSULIN #### [facility] [address] [place] [address] Dr. Karey Ordoñez CBC AUTO DIFFon 10-01-2021 BASO # 0.0 103/ul Normal 0.0-0.1 [facility] Comment on above: Performed By: #### F T4 #### [facility] [address] [place] [address] Dr. Karey Ordoñez Basophils/100 WBC (Bld) 0.4 % Normal 0.2-2.0 [facility] Comment on above: Performed By: #### F T4 #### [facility] [address] [place] [address] Dr. Karey Ordoñez EO # 0.1 103/ul Normal 0.0-0.7 [facility] Comment on above: Performed By: #### F T4 #### [facility] [address] [place] [address] Dr. Karey Ordoñez Eosinophils/100 WBC (Bld) 1.1 % Normal 0.9-7.0 [facility] Comment on above: Performed By: #### F T4 #### [facility] [address] [place] [address] Dr. Karey Ordoñez Erythrocyte distribution width (RBC) [Ratio] 12.9 % Normal 11.0-15.0 [facility] Comment on above: Performed By: #### F T4 #### [facility] [address] [place] [address] Dr. Karey Ordoñez Hematocrit (Bld) [Volume fraction] 41.5 % Normal 36.0-48.0 [facility] Comment on above: Performed By: #### F T4 #### [facility] [address] [place] [address] Dr. Karey Ordoñez Hemoglobin (Bld) [Mass/Vol] 13.0 g/dL Normal 12.0-16.0 [facility] Comment on above: Performed By: #### F T4 #### [facility] [address] [place] [address] Dr. Karey Ordoñez IG # 0.04 10e3/ul Critically high 0.00-0.03 [facility] Comment on above: Performed By: #### F T4 #### [facility] [address] [place] [address] Dr. Karey Ordoñez IG % 0.5 % Normal 0.0-0.5 [facility] Comment on above: Performed By: #### F T4 #### [facility] [address] [place] [address] Dr. Karey Ordoñez LYMPH # 1.9 103/ul Normal 1.2-3.8 [facility] Comment on above: Performed By: #### F T4 #### [facility] [address] [place] [address] Dr. Karey Ordoñez Lymphocytes/100 WBC (Bld) 22.7 % Normal 20.5-60.0 [facility] Comment on above: Performed By: #### F T4 #### [facility] [address] [place] [address] Dr. Karey Ordoñez MANUAL DIFF REQ NO Normal [facility] Comment on above: Performed By: #### F T4 #### [facility] [address] [place] [address] Dr. Kaery Ordoñez MCH (RBC) [Entitic mass] 28.9 pg Normal 26.7-34.0 [facility] Comment on above: Performed By: #### F T4 #### [facility] [address] [place] [address] Dr. Karey Ordoñez MCHC (RBC) [Mass/Vol] 31.3 g/dL Normal 29.9-35.[address] [facility] Comment on above: Performed By: #### F T4 #### [facility] [address] [place] [address] Dr. Karey Ordoñez MCV (RBC) [Entitic vol] 92.2 fL Normal 81.0-99.[address] [facility] Comment on above: Performed By: #### F T4 #### [facility] [address] [place] [address] Dr. Karey Ordoñez MONO # 0.6 103/ul Normal 0.3-0.[address] [facility] Comment on above: Performed By: #### F T4 #### [facility] [address] [place] [address] Dr. Karey Ordoñez Monocytes/100 WBC (Bld) 6.8 % Normal 1.7-12.[address] [facility] Comment on above: Performed By: #### F T4 #### [facility] [address] [place] [address] Dr. Karey Ordoñez NEUT # 5.8 103/ul Normal 1.4-6.[address] [facility] Comment on above: Performed By: #### F T4 #### [facility] [address] [place] [address] Dr. Karey Ordoñez Neutrophils/100 WBC (Bld) 68.5 % Normal 43.0-75.[address] [facility] Comment on above: Performed By: #### F T4 #### [facility] [address] [place] [address] Dr. Karey Ordoñez Platelet mean volume (Bld) [Entitic vol] 12.8 fL Normal 9.5-13.[address] [facility] Comment on above: Performed By: #### F T4 #### [facility] [address] [place] [address] Dr. Karey Ordoñez PLT 231 103/ul Normal 150-[address] [facility] Comment on above: Performed By: #### F T4 #### [facility] [address] [place] [address] Dr. Karey Ordoñez RBC 4.50 106/ul Normal 4.20-5.40 [facility] Comment on above: Performed By: #### F T4 #### [facility] [address] [place] [address] Dr. Karey Ordoñez WBC 8.5 103/ul Normal 4.0-11.0 [facility] Comment on above: Performed By: #### F T4 #### [facility] [address] [place] [address] Dr. Karey Ordoñez FREE T4on 10-01-2021 Free T4 [Mass/Vol] 1.27 ng/dL Normal 0.76-1.46 [facility] Comment on above: Performed By: #### F T4 #### [facility] [address] [place] [address] Dr. Karey Ordoñez GLYCOHEMOGLOBIN A1Con 2021 ADA RECOMMENDATION SEE BELOW Normal [facility] Comment on above: Result Comment: ADA RECOMMENDED LIMIT 4.0 - 6.0 ADA THERAPEUTIC TARGET < 7.0 ACTION SUGGESTED > 7.0 Performed By: #### A 1C #### [facility] [address] [place] [address] Dr. Karey Ordoñez Glucose [Mass/Vol] 123 mg/dL Normal [facility] Comment on above: Performed By: #### A 1C #### [facility] [address] [place] [address] Dr. Karey Ordoñez HbA1c (Bld) [Mass fraction] 5.9 % Normal 4.5-6.2 [facility] Comment on above: Performed By: #### A 1C #### [facility] [address] [place] [address] Dr. Karey Ordoñez LIPID PROFILEon 10-01-2021 CHOL-HDL RATIO NORM SEE BELOW Normal [facility] Comment on above: Result Comment: 3.3 - 4.4 LOW RISK 4.4 - 7.1 AVERAGE RISK 7.1 - 11.0 MODERATE RISK >11.0 HIGH RISK Performed By: #### F T4 #### [facility] [address] [place] [address] Dr. Karey Ordoñez Cholesterol [Mass/Vol] 182 mg/dL Normal <=200 [facility] Comment on above: Performed By: #### F T4 #### [facility] [address] [place] [address] Dr. Karey Ordoñez Cholesterol in HDL [Mass/Vol] 52 mg/dL Normal 40-60 [facility] Comment on above: Performed By: #### F T4 #### [facility] [address] [address] [address] Karey Ordoñez Cholesterol in LDL [Mass/Vol] 115.8 mg/dL Normal [facility] Comment on above: Performed By: #### F T4 #### [facility] [address] [place] [address] Dr. Karey Ordoñez Cholesterol.total/Ch olesterol in HDL [Mass ratio] 3.5 {ratio} Normal [facility] Comment on above: Performed By: #### F T4 #### [facility] [address] [place] [address] Dr. Karey Ordoñez HDL NORMAL > or = 60 mg/dl - LO W CARDIOVASCULAR RISK <40 mg/dl - HIGH CARDIOVASCULAR RISK Normal [facility] Comment on above: Performed By: #### F T4 #### [facility] [address] [place] [address] Dr. Karey Ordoñez LDL CALC NORMAL SEE BELOW Normal [facility] Comment on above: Result Comment: <100 mg/dl OPTIMAL 100 - 129 mg/dl NEAR OR ABOVE OPTIMAL 130 - 159 mg/dl BORDERLINE HIGH 160 - 189 mg/dl HIGH >190 mg/dl VERY HIGH Performed By: #### F T4 #### [facility] [address] [place] [address] Dr. Karey Ordoñez Triglyceride [Mass/Vol] 71 mg/dL Normal <=[address] [facility] Comment on above: Performed By: #### F T4 #### [facility] [address] [place] [address] Dr. Karey Ordoñez VLDL CALC 14.2 mg/dL Normal [facility] Comment on above: Performed By: #### F T4 #### [facility] [address] [place] [address] Dr. Karey Ordoñez PROF 14(COMP METB)on 022 Albumin [Mass/Vol] 3.9 g/dL Normal 3.4-5.0 [facility] Comment on above: Performed By: #### F T4 #### [facility] [address] [place] [address] Dr. Karey Ordoñez Albumin/Globulin [Mass ratio] 0.9 {ratio} Normal [facility] Comment on above: Performed By: #### F T4 #### [facility] [address] [place] [address] Dr. Karey Ordoñez ALP [Catalytic activity/Vol] 117 U/L Critically high 46-116 [facility] Comment on above: Performed By: #### F T4 #### [facility] [address] [place] [address] Dr. Karey Ordoñez ALT [Catalytic activity/Vol] 25 U/L Normal 14-59 [facility] Comment on above: Performed By: #### F T4 #### [facility] [address] [place] [address] Dr. Karey Ordoñez Anion gap [Moles/Vol] 14.1 mmol/L Normal [facility] Comment on above: Performed By: #### F T4 #### [facility] [address] [place] [address] Dr. Karey Ordoñez AST [Catalytic activity/Vol] 14 U/L Critically low 15-37 [facility] Comment on above: Performed By: #### F T4 #### [facility] [address] [place] [address] Dr. Karey Ordoñez Bilirubin [Mass/Vol] 0.5 mg/dL Normal 0.2-1.0 [facility] Comment on above: Performed By: #### F T4 #### [facility] [address] [place] [address] Dr. Karey Ordoñez Calcium [Mass/Vol] 9.1 mg/dL Normal 8.5-10.1 [facility] Comment on above: Performed By: #### F T4 #### [facility] [address] [place] [address] Dr. Karey Ordoñez Chloride [Moles/Vol] 102 mmol/L Normal 98-107 [facility] Comment on above: Performed By: #### F T4 #### [facility] [address] [address] [address] Karey Ordoñez CO2 [Moles/Vol] 27.7 mmol/L Normal 21.0-32.0 [facility] Comment on above: Performed By: #### F T4 #### [facility] [address] [address] [address] Karey Ordoñez Creatinine [Mass/Vol] 0.76 mg/dL Normal 0.55-1.02 [facility] Comment on above: Performed By: #### F T4 #### [facility] [address] [place] [address] Dr. Karey Ordoñez EGFR-AF ALGERIAN >60 Normal >=60 [facility] Comment on above: Performed By: #### F T4 #### [facility] [address] [place] [address] Dr. Karey Ordoñez EGFR-NON AF ALGERIAN >60 Normal >=60 [facility] Comment on above: Performed By: #### F T4 #### [facility] [address] [address] [address] Karey Ordoñez Globulin (S) [Mass/Vol] 4.5 g/dL Normal [facility] Comment on above: Performed By: #### F T4 #### [facility] [address] [place] [address] Dr. Karey Ordoñez Glucose [Mass/Vol] 101 mg/dL Normal 74-106 [facility] Comment on above: Performed By: #### F T4 #### [facility] [address] [place] [address] Dr. Karey Ordoñez Potassium [Moles/Vol] 3.8 mmol/L Normal 3.5-5.1 [facility] Comment on above: Performed By: #### F T4 #### [facility] [address] [place] [address] Dr. Karey Ordoñez Protein [Mass/Vol] 8.4 g/dL Critically high 6.4-8.2 [facility] Comment on above: Performed By: #### F T4 #### [facility] [address] [address] [address] Karey Ordoñez Sodium [Moles/Vol] 140 mmol/L Normal 136-145 [facility] Comment on above: Performed By: #### F T4 #### [facility] [address] [place], [place] [address] Dr. Karey Ordoñez Urea nitrogen [Mass/Vol] 10.0 mg/dL Normal 7.0-18.0 [facility] Comment on above: Performed By: #### F T4 #### [facility] [address] [address] [address] Karey Ordoñez Urea nitrogen/Creatinine [Mass ratio] 13.2 mg/mg Normal [facility] Comment on above: Performed By: #### F T4 #### [facility] [address] [place] [address] Dr. Karey Ordoñez TSHon 10-01-2021 TSH 2.445 uIU/mL Normal 0.358-3.740 [facility] Comment on above: Performed By: #### F T4 #### [facility] [address] [address] [address] Karey Ordoñez TSH RANGE SEE BELOW Normal [facility] Comment on above: Result Comment: <0.3 4 UIU/ml HYPERTHYROID 0.34-5.60 UIU/ml EUTHYROID >5.60 UIU/ml HYPOTHYROID Performed By: #### F T4 #### [facility] [address] [address] [address] Karey Ordoñez Vital Signs Date Time Vital Sign Value Performing Clinician Faci lity 02-17-2023 08:48-0400 Body weight 126.55 kg Jennifer Marcus MD Work Phone: [facility] 02-17-2023 08:48-0400 Diastolic blood pressure 82 mm[Hg] Jennifer Marcus MD Work Phone: [facility] 02-17-2023 08:48-0400 Heart rate 96 /min Jennifer Marcus MD Work Phone: [facility] 02-17-2023 08:48-0400 SaO2% (BldA) [Mass fraction] 98 % Jennifer Marcus MD Work Phone: [facility] 02-17-2023 08:48-0400 Systolic blood pressure 116 mm[Hg] Jennifer Marcus MD Work Phone: [facility] 06-30-2022 09:45-0500 Body height 160.02 cm Allison Ara Gordonrasheedholz Work Phone: [facility] 250 DO Work Phone: 06-30-2022 09:45-0500 Body mass index (BMI) [Ratio] 49.42 kg/m2 Allison Bullock Heidihholz Work Phone: [facility] 250 DO Work Phone: 06-30-2022 09:45-0500 Body surface area Derived from formula 2.23 m2 Allison Gordonhholz Work Phone: [facility] 250 DO Work Phone: 06-30-2022 09:45-0500 Body weight 126.55 kg Allison Bullock Heidirasheedholz Work Phone: [facility] 250 DO Work Phone: 06-30-2022 09:45-0500 Diastolic blood pressure 80 mm[Hg] Allison Ara Gordonrasheedholz Work Phone: [facility] 250 DO Work Phone: 06-30-2022 09:45-0500 Heart rate 74 /min Allison Ara Godronhholz Work Phone: [facility] 250 DO Work Phone: 06-30-2022 09:45-0500 Systolic blood pressure 128 mm[Hg] Allisonmich Gordonhholz Work Phone: [facility] DO Work Phone: Encounters Encounter Date Encounter Type Care Provider Facility Start: 11-02-2023 End: 11-02-2023 ambulatory Patrick Parks MD Facility[facility] Start: 10-19-2023 End: 10-19-2023 ambulatory Patrick Parks MD Facility:[facility] Start: 10-13-2023 End: 10-13-2023 ambulatory ALLISON VANESSA Not Available Start: 10-12-2023 End: 10-12-2023 ambulatory Patrick Parks MD Facility:[facility] Start: 09-07-2023 End: 09-07-2023 ambulatory Patrick Parks MD Facility:[facility] Start: 08-31-2023 Chart abstracting Dino Garcia [facility] Work Phone: [facility] Comment on above: Genetics- parental t esting Start: 07-30-2023 End: 07-30-2023 ambulatory ALLISON BINHZ Not Available Start: 07-24-2023 End: 07-25-2023 ambulatory TAQUERIA SOLIS [facility] Start: 07-15-2023 Orders Only Taqueria Solis MD Work Phone: [facility] Comment on above: Elevated partial thr omboplastin time (PTT) (Primary Dx) Start: 07-13-2023 End: 07-14-2023 ambulatory JOANN MAHMOOD [facility] Start: 04-30-2023 End: 04-30-2023 ambulatory ALLISON AICHHOLZ Not Available Start: 02-17-2023 End: 02-18-2023 ambulatory JENNIFER MARCUS Facility:[facility] Start: 02-17-2023 End: 02-17-2023 Office outpatient new 60 minutes Jennifer Marcus MD Work Phone: Rheumatology Comment on above: Fibromyalgia (Primar y Dx); Sedimentation rate elevation; Fatigue, unspecified type; Vitamin D deficiency Start: 07-07-2022 Encounter for antibo dy response examination [employer] TAILOR ALLISON MENDEZ [facility] Start: 07-03-2022 End: 07-04-2022 ambulatory [employer] TAILOR ALLISON MENDEZ Facility:[facility] Start: 07-03-2022 End: 07-04-2022 Encounter for antibody response examination LAURO MENDEZ Facility:[facility] Start: 06-30-2022 Office outpatient vi sit 15 minutes Allison Mccluresrinivasa Work Phone: [facility] 250 DO Work Phone: Start: 06-30-[address] [facility] Start: 05-12-2022 End: 05-13-2022 ambulatory LAURO MENDEZ Facility:[facility] Start: 03-04-2022 End: 03-04-2022 ambulatory JESSE HATCH Facility:[facility] Start: 02-06-2022 End: 02-07-2022 ambulatory [employer] TAILOR ALLISON VANESSA Facility:[facility] Start: 01-22-2022 End: 01-23-2022 ambulatory LAURO MENDEZ Facility:[facility] Start: 01-18-2022 End: 01-18-2022 ambulatory LAURO PEREZA VANESSA Facility:[facility] Start: 01-17-2022 End: 01-18-2022 ambulatory [employer] TAILOR ALLISON BINHZ Facility:[facility] Start: 01-15-2022 End: 01-15-2022 ambulatory HAND [employer]ATIONS TAILOR ALLISON BINHZ Facility:[facility] Start: 12-18-2021 End: 12-19-2021 ambulatory HAND ALTERATIONS TAILOR ALLISONMich MCCLUREMARRYLorri Facility:[facility] Start: 12-09-2021 End: 12-10-2021 ambulatory SHAIKH Rasheed LARA Facility:[facility] Start: 10-29-2021 End: 10-30-2021 ambulatory HAND AL[employer]ATIONS TAILOR ALLISON SHERMANMARRYLorri Facility:[facility] Start: 10-01-2021 End: 10-02-2021 ambulatory HAND ALTERATIONS TAILOR ALLISON BINHZ Facility:[facility] Start: 08-13-2021 End: 10-01-2021 ambulatory HAND ALTERATIONS TAILOR ALLISON SHERMANMARRYZ Facility:[facility] Procedures Date Procedure Procedure [...] Adult BMI Screening Adult BMI Screen ing [facility] Start: 04-14-2024 Depression Screening Depression Scre ening [facility] Start: 04-14-2024 Tobacco Screening Tobacco Screening [facility] Start: 04-11-2024 FUV, Provider: Chandler Wilkes, Status: Pen, Time: 11:00 AM FUV, Provider: Chandler Wilkes, Status: Pen, Time: 11:00 AM [facility] 250 DO Work Phone: Start: 01-10-2024 Influenza vaccination Influenz a Vaccine (Season Ended) [facility] Start: 05-11-2023 Behavioral Health Screening Behavioral Health Screening [facility] Start: 02-17-2023 End: 04-19-2023 Cobalamin [...] Vaccine ( season) Covid-19 Vaccine ( season) [facility] Start: 01-09-2023 Influenza vaccination [facility] Start: 05-11-2022 Depression Assessment Depression Ass essment [facility] Start: 12-25-2013 HPV Testing HPV Testing [facility] Start: 12-25-2013 Screening for malign ant neoplasm of cervix HPV Testing [facility] Start: 12-25-2004 Pap Testing Pap Testing [facility] Start: 12-25-2004 Screening for malign ant neoplasm of cervix Pap Testing [facility] Start: 12-25-2002 DTaP,Tdap and Td Vac cines (1 - Tdap) DTaP,Tdap and Td Vaccines (1 - Tdap) [facility] Start: 12-25-2002 Hepatitis B Vaccine (1 of 3 - 19+ 3-dose series) Hepatitis B Vaccine (1 of 3 - 19+ 3-dose series) [facility] Start: 12-25-2002 Urine microalbumin profile DTaP,Tdap,Td Vaccine (1 - Tdap) [facility] Start: 12-25-2001 Adult BMI Follow Up Plan Adult BMI F ollow Up Plan [facility] Start: 12-25-2001 Hepatitis C Screening Hepatitis C [facility] Start: 12-25-2001 Hepatitis C screening Hepatitis C [facility] Start: 12-25-2001 HIV Screening HIV Screening [facility] Start: 12-25-2001 HIV screening HIV Screening [facility] Start: 1985 Hepatitis B Vaccine (1 of 3 - 3-dose series) Hepatitis B Vaccine (1 of 3 - 3-dose series) [facility] End: 07-14-2024 Inhibitor screen Inhibitor screen Lab Routine Elevated partial thromboplastin time (PTT) 1 Occurrences starting 07/15/2023 until 07/14/2024 [facility] Work Phone: Comment on above: 1 Occurrences starti ng 07/15/2023 until 07/14/2024 SWAB COLLECTION SPECIMEN SWAB CO LLECTION SPECIMEN Lab Routine Family history of autism Ordered: 08/31/2023 [facility] Work Phone: Comment on above: Ordered: 08/31/2023 Immunizations Immunization Date Immunization Notes Care Provider Charla cortez 04-25-2022 influenza virus vacc ine, unspecified formulation Taqueria Solis MD Work Phone: [facility] 09-10-2020 Pfizer-BioNTech COVI D-19 Vacc 30 MCG/0.3ML Intramuscular Suspension Allison Mendez Work Phone: [facility] Work Phone: 08-20-2020 Pfizer-BioNTech COVI D-19 Vacc 30 MCG/0.3ML Intramuscular Suspension Allison Mendez Work Phone: [facility] 250 DO Work Phone: Payers Date Payer Category Payer Unknown 2019 Medicaid [id number] 1985 Unknown [id number] 2.16. 840.1.830167.3.579.2.356 1983 Unknown [id number] 2.16.84 0.1.461039.3.579.2.593 1983 Unknown [id number] 2.16.84 0.1.497786.3.579.2.593 1983 Unknown [id number] 2.16.84 0.1.898520.3.579.2.593 1983 Unknown [id number] 2.16.84 0.1.757630.3.579.2.593 1983 Unknown [id number] 2.16.84 0.1.258151.3.579.2.593 1983 Unknown [id number] 2.16.84 0.1.893859.3.579.2.593 1983 Unknown [id number] 2.16.84 0.1.793821.3.579.2.593 1983 Unknown [id number] 2.16.84 0.1.753591.3.579.2.593 1983 Unknown [id number] 2.16.84 0.1.055297.3.579.2.593 1983 Unknown [id number] 2.16.84 0.1.262055.3.579.2.593 1983 Unknown [id number] 2.16.84 0.1.685348.3.579.2.593 1983 Unknown [id number] 2.16.84 0.1.187622.3.579.2.593 1983 Unknown [id number] 2.16.84 0.1.766364.3.579.2.593 1983 Unknown [id number] 2.16.8 40.1.676466.3.579.2.1286 1983 Unknown [id number] 2.16.8 40.1.836100.3.579.2.1286 1983 Unknown [id number] 2.16.84 0.1.277263.3.579.2.1259 1983 Unknown [id number] 2.16.84 0.1.383221.3.579.2.1259 1983 Unknown [id number] 2.16.840 .1.047560.3.579.2.1259 1983 Unknown [id number] 2.16. 840.1.088035.3.579.2.196 1983 Unknown [id number] 2.16. 840.1.926440.3.579.2.196 1983 Unknown [id number] 2.16. 840.1.913261.3.579.2.196 1983 Unknown [id number] 2.16. 840.1.443822.3.579.2.196 1959 Unknown [id number] Social History Date Type Detail Facility Start: 02-13-2023 End: 02-17-2023 No alcohol use No alcohol use [facility] Comment on above: 1-2 cups coffee brian y; Start: 07-29-2021 End: 02-17-2023 Tobacco smoking status NHIS Never smoked tobacco [facility] Start: 07-29-2021 End: 02-17-2023 Tobacco use and exposure Smokeless tobacco non-user [facility] Start: 02-13-2023 End: 02-17-2023 Tobacco use panel [facility] Adult Depression Screening Assessment 0 [facility] Start: 1985 Sex Assigned At Not on file [facility] Start: 04-14-2023 Alcohol intake Ex-drinker (finding) [facility] Progress note 08-31-2023 Note Date & Type Note Facility 08-31-2023 Note HNO ID: [id number] Author: DINO SELLERS LGC Service: ? Author [...] to her home address. Dino Sellers MS, [facility] Licensed Genetic Counselor [facility] History of Present illness Narrative 08-31-2023 Dino [...] to her home address. Dino Sellers MS, [facility] Licensed Genetic Counselor documented in this encounter [facility] Progress note 02-17-2023 Note Date & Type Note Facility 02-17-2023 Note HNO ID: [id number] Author: Jennifer Marcus MD Service: ? Author Type: Physician Type: Progress Notes Filed: 02/17/2023 10:02 AM Note Text: Rheumatology Clinic Date of Service: 02/17/2023 Patient: Denihsa Velasco Medical Record: [id number] Last Rheumatology visit: None at [facility] History of Present Illness Denisha [...] each day a (more content not included)... [facility] Instructions 02-17-2023 Patient Instructions Note Date & [...] and/or non-rheumatologic conditions. A meta-analysis from the [facility] in [place] suggested that concomitant fibromyalgia is common in patients with inflammatory arthritis, which can have a major impact on assessing disease severity and treatment decisions. The overall prevalence of fibromyalgia was 21% among patients with rheumatoid arthritis and 13% in ankylosing spondylitis, whereas the condition is reported in approximately 1% to 5% of the general population, according to Wyatt Luke, [facility], PhD, of the [facility] in [place], and colleagues. The cornerstones of therapy for [...] guidelines of fibromyalgia: (1) https://www.rheumatology.org/I-Am-A/Patient- Caregiver/Diseases-Conditions/Fibromyalgia (2) [email or web address]/ documented in this encounter [facility] History of Present illness Narrative 02-17-2023 Jennifer Marcus MD - 02/17/2023 8:49 AM EDT Note Date & Type Note Facility 02-17-2023 History of Presen t illness Narrative Images from the original note were not included. Rheumatology Clinic Date of Service: 02/17/2023 Patient: Denisha Velasco Medical Record: [id number] Last Rheumatology visit: None at [facility] History of Present Illness Denisha [...] which included preparing to see the patient, [id number] patient care, completing clinical documentation, obtaining and/or reviewing separately obtained history, performing a medically appropriate examination, and counseling and educating the patient/family/caregiver. Jennifer Marcus MD Rheumatology Date: February 17, 2023 Time: 8:50 AM documented in this encounter [facility] Evaluation note Note Date & Type Note Facility Evaluation note Diagnosis Fibromyalgia- Primary Mylagia and myositis, unspecified Sedimentation rate elevation Elevated sedimentation rate Fatigue, unspecified type Vitamin D deficiency Unspecified vitamin D deficiency documented in this encounter [facility] Evaluation note Note Date & Type Note Facility Evaluation note Diagnosis Elevated partial thromboplastin time (PTT)- Primary Abnormal coagulation profile documented in this encounter [facility] Evaluation note Note Date & Type Note Facility Evaluation note Diagnosis Family history of autism- Primary Family history of psychiatric condition documented in this encounter [facility] History of Present illness Narrative [...] of doing it at her young age. -[facility] 250 DO Work Phone: Instructions [...] section and content) DATE CREATED AUTHOR 06/30/2022 [facility] DATE CREATED AUTHOR AUTHOR'S ORGANIZ ATION 07/01/2022 [employer] DATE CREATED AUTHOR AUTHOR'S ORGANIZ ATION 07/08/2022 [facility] DATE CREATED AUTHOR AUTHOR'S ORGANIZ ATION 08/01/2023 [facility] DATE CREATED AUTHOR AUTHOR'S ORGANIZ ATION 08/31/2023 [facility] DATE CREATED AUTHOR AUTHOR'S ORGANIZ ATION 10/14/2023 [facility] DATE CREATED AUTHOR AUTHOR'S ORGANIZ ATION 11/04/2023 [facility] Source Comments (unrecognize d section and content) In the event this informatio n is protected by the Federal Confidentiality of Alcohol and Drug Abuse Patient Records regulations: The Federal rules restrict any use of the information to criminally investigate or prosecute any alcohol or drug abuse patient[facility] the event this information is protected by the Federal Confidentiality of Alcohol and Drug Abuse Patient Records regulations: The Federal rules restrict any use of the information to criminally investigate or prosecute any alcohol or drug abuse patient.[facility] Reason for Visit (unrecogniz ed section and content) Reason Comments Consult Reason Comments Genetics- parental testing Care Teams (unrecognized sec tion and content) Building Supervisor Relationship Specialty Start Date End Date Allison Mendez, CHEESE WRAPPER-[employer]TERATIONS TAILOR [address] [place] [address] PCP - General Nurse Practitioner 04/14/23 FOR [...] BE BASED ON THE PRIMARY CLINICAL RECORDS. [employer] provides no warranty or guarantee of the accuracy or completeness of information in this document.
== END 2023-12-03 07:03 | disposition home or self-care (01) ==
LOC: US 07:02
PROVIDERS: PCP Nurse Practitioner; Visit Provider Nurse Practitioner
DX: R74.8 Abnormal levels of other serum enzymes (principal)
CPT/HCPCS: 76705

== ENCOUNTER 2023-12-07 08:45 | Day surgery (SDC) | payer OTHER, SELFPAY ==
--- OUTSIDE RECORDS SUMMARY | 2023-12-07 08:49 | XMS_ITS ---
Patient Summarization (C-CDA 2.1 CCD) Created on: December 07, 2023 Denisha Velasco : 1985 Sex: Female Author Organization Sample organization Care Team Providers Care Body And Frame Technician Name Role Phone Katrin LIMON, Dr. Chandler Pryor Attending Unavailable Katrin LIMON, Dr. Chandler Pryor Referring Unavailable Aichholz, Mrs. Allison Bullock Primary Care Unavailab le AichholzAllison Ara Unavailable Unavailable Unavailable AICHHOLZ, TUYERE FITTER ALLISON Consulting Unavailable AICHHOLZ, TUYERE FITTER ALLISON Attending Unavailable AICHHOLZ, TUYERE FITTER ALLISON Primary Care Unavailable AICHHOLZ, TUYERE FITTER ALLISON Admitting Unavailable AICHHOLZ, TUYERE FITTER ALLISON Consulting Unavailable AICHHOLZ, TUYERE FITTER ALLISON Attending Unavailable AICHHOLZ, TUYERE FITTER ALLISON Primary Care Unavailable AICHHOLZ, TUYERE FITTER ALLISON Admitting Unavailable AICHHOLZ, TUYERE FITTER ALLISON Consulting Unavailable AICHHOLZ, TUYERE FITTER ALLISON Attending Unavailable AICHHOLZ, TUYERE FITTER ALLISON Admitting Unavailable AICHHOLZ, TUYERE FITTER ALLISON Primary Care Unavailable FAWWAD, MEI H Admitting Unavailable AICHHOLZ, TUYERE FITTER ALLISON Primary Care Unavailable VERO WILSON Consulting Unavailable FAWWAD, MEI H Attending Unavailable FAWWAD, MEI H Consulting Unavailable AICHHOLZ, TUYERE FITTER ALLISON Consulting Unavailable AICHHOLZ, TUYERE FITTER ALLISON Attending Unavailable AICHHOLZ, TUYERE FITTER ALLISON Admitting Unavailable AICHHOLZ, TUYERE FITTER ALLISON Primary Care Unavailable DR ZINA GREGORY Consulting Unavailable JESSE HATCH Attending Unavailable MAMIE, JESSE Salgado Admitting Unavailable AICHHOLZ, TUYERE FITTER ALLISON Primary Care Unavailable JESSE HATCH Consulting Unavailable AICHHOLZ, TUYERE FITTER ALLISON Primary Care Unavailable JESSE HATCH Attending Unavailable JESSE HATCH Admitting Unavailable JESSE HATCH Consulting Unavailable Lali Patel Consulting Unavailable AICHHOLZ, TUYERE FITTER ALLISON Primary Care Unavailable DR VERO ATKINS V Consulting Unavailable PAY ., DR PONCE Attending Unavailable PAY ., DR PONCE Admitting Unavailable PAY ., DR PONCE Consulting Unavailable AICHHOLZ, TUYERE FITTER ALLISON Admitting Unavailable AICHHOLZ, TUYERE FITTER ALLISON Attending Unavailable AICHHOLZ, TUYERE FITTER ALLISON Primary Care Unavailable AICHHOLZ, TUYERE FITTER ALLISON Attending Unavailable AICHHOLZ, TUYERE FITTER ALLISON Admitting Unavailable AICHHOLZ, TUYERE FITTER ALLISON Primary Care Unavailable MILLY, DR VERO De Oliveira Consulting Unavailable AICHHOLZ, TUYERE FITTER ALLISON Consulting Unavailable AICHHOLZ, TUYERE FITTER ALLISON Primary Care Unavailable [place], DR VERO De Oliveira Consulting Unavailable FAWWAD, MEI H Attending Unavailable FAWWAD, MEI H Admitting Unavailable FAWWAD, MEI H Consulting Unavailable AICHHOLZ, TUYERE FITTER ALLISON Admitting Unavailable AICHHOLZ, TUYERE FITTER ALLISON Primary Care Unavailable AICHHOLZ, TUYERE FITTER ALLISON Consulting Unavailable AICHHOLZ, TUYERE FITTER ALLISON Attending Unavailable AICHHOLZ, TUYERE FITTER ALLISON Admitting Unavailable AICHHOLZ, TUYERE FITTER ALLISON Primary Care Unavailable AICHHOLZ, TUYERE FITTER ALLISON Consulting Unavailable AICHHOLZ, TUYERE FITTER ALLISON Attending Unavailable Unavailable Primary Care Provider Unavailabl e Aichholz RESEARCH CHEMIST-TUYERE FITTER, Allison J Primary Care Provider JOANN MAHMOOD Referring Unavailable AICHHOLZ, ALLISON J Primary Care Unavailable TAQUERIA SOLIS Referring Unavailable AICHHOLZ, ALLISON J Primary Care Unavailable ANGELINE, ALBERTO KAMALESH Referring Unavaila ble AICHHOLZ, ALLISON ARA Referring Unavailable ANGELINE, ALBERTO KAMALES Attending Unavaila ble Unavailable Primary Care Provider Unavailabl e AICHHOLZ, ALLISON Attending Unavailable AICHHOLZ, ALLISON Attending Unavailable AICHHOLZ, ALLISON Attending Unavailable Giedraitis , Andrius Vytjasmin Attending Unavailable Giedraitis , Andrius Vytautas Attending Unavailable Giedraitis , Andrius Vytautas Attending Unavailable Giedraitis MD, Andrius Vytautas Attending Unavailable Allergies Allergy Classification Reported Allergen(s) Allergy Type Date of Onset Reaction(s) Facility (6 sources) gabapentin; Translations: [gabapentin] Drug Allergy 2 Other: See Comments [facility] (4 sources) hydroCHLOROthiaz ney; Translations: [hydroCHLOROthia zide CAPS] Drug Allergy 2 Other: See Comments [facility] (1 source) gabapentin Drug Allergy [facility] (3 sources) hydroCHLOROthiaz ney; Translations: [HYDROCHLOROTHIA ZIDE] Drug Allergy [address] [facility] Repository Encounters Encounter Date Encounter Type Care Provider Facility Start: 11-02-2023 End: 11-02-2023 ambulatory Patrick Parks MD Facility:[facility] Start: 10-19-2023 End: 10-19-2023 ambulatory Patrick Parks MD Facility:[facility] Start: 10-13-2023 End: 10-13-2023 ambulatory ALLISON SHERMANHOLZ Not Available Start: 10-12-2023 End: 10-12-2023 ambulatory Patrick Parks MD Facility:[facility] Start: 09-07-2023 End: 09-07-2023 ambulatory Patrick Parks MD Facility:[facility] Start: 08-31-2023 Chart abstracting Dino Garcia [facility] Work Phone: [facility] Comment on above: Genetics- parental t esting Start: 07-30-2023 End: 07-30-2023 ambulatory ALLISON SHERMANHOLZ Not Available Start: 07-24-2023 End: 07-25-2023 ambulatory TAQUERIA SOLIS [facility] Start: 07-15-2023 Orders Only Taqueria Solis MD Work Phone: [facility] Comment on above: Elevated partial thr omboplastin time (PTT) (Primary Dx) Start: 07-13-2023 End: 07-14-2023 ambulatory JOANN Tesfaye [facility] Start: 04-30-2023 End: 04-30-2023 ambulatory ALLISON AICHHOLZ Not Available Start: 02-17-2023 End: 02-18-2023 ambulatory ALBERTO MARCUS Facility:[facility] Start: 02-17-2023 End: 02-17-2023 Office outpatient new 60 minutes Alberto Marcus MD Work Phone: Rheumatology Comment on above: Fibromyalgia (Primar y Dx); Sedimentation rate elevation; Fatigue, unspecified type; Vitamin D deficiency Start: 07-07-2022 Encounter for antibo dy response examination TUYERE FITTER ALLISON MENDEZ [facility] Start: 07-03-2022 End: 07-04-2022 ambulatory TUYERE FITTER ALLISON MENDEZ Facility:[facility] Start: 07-03-2022 End: 07-04-2022 Encounter for antibody response examination TUYERE FITTER ALLISON MENDEZ Facility:[facility] Start: 06-30-2022 Office outpatient vi sit 15 minutes Allison Mendez Work Phone: [facility] 250 DO Work Phone: Start: 06-30-[address] Chandler Wilkes II Facility: Start: 05-12-2022 End: 05-13-2022 ambulatory LAURO MENDEZ Facility:[facility] Start: 03-04-2022 End: 03-04-2022 ambulatory JESSE HATCH Facility:[facility] Start: 02-06-2022 End: 02-07-2022 ambulatory TUYERE FITTER ALLISON MENDEZ Facility:[facility] Start: 01-22-2022 End: 01-23-2022 ambulatory LAURO MENDEZ Facility:[facility] Start: 01-18-2022 End: 01-18-2022 ambulatory LAURO PEREZA HADLEY Facility:[facility] Start: 01-17-2022 End: 01-18-2022 ambulatory TUYERE FITTER ALLISON MENDEZ Facility:[facility] Start: 01-15-2022 End: 01-15-2022 ambulatory TUYERE FITTER ALLISON HADLEY Facility:[facility] Start: 12-18-2021 End: 12-19-2021 ambulatory TUYERE FITTER ALLISON MENDEZ Facility:[facility] Start: 12-09-2021 End: 12-10-2021 ambulatory SHAIKH Michelle LARA Facility:[facility] Start: 10-29-2021 End: 10-30-2021 ambulatory TUYERE FITTER ALLISON BINHLorri Facility:[facility] Start: 10-01-2021 End: 10-02-2021 ambulatory TUYERE FITTER ALLISON HADLEY Facility:[facility] Start: 08-13-2021 End: 10-01-2021 ambulatory TUYERE FITTER ALLISON MENDEZ Facility:[facility] Immunizations Immunization Date Immunization Notes Care Provider Charla cortez 04-25-2022 influenza virus vacc ine, unspecified formulation Taqueria Solis MD Work Phone: [facility] 09-10-2020 Pfizer-BioNTech COVI D-19 Vacc 30 MCG/0.3ML Intramuscular Suspension Allison Mendez Work Phone: [facility] 250 DO Work Phone: 08-20-2020 Pfizer-BioNTech COVI D-19 Vacc 30 MCG/0.3ML Intramuscular Suspension Allison Mendez Work Phone: [facility] 250 DO Work Phone: Medications Current Medications [...] oral tablet (5 sources) Muscle Relaxant Start: 01-31-2 022 cyclobenzaprine (FLEXERIL) 10 mg tablet 1 (one) time each day at the same time. 0 06/10/2021 Active Comment on above: 1 (one) time each da y at the same time. doxepin hydrochloride 10 mg oral capsule (3 sources) Tricyclic Antidepressant Start: doxepin capsule 10 mg Take 10-20 mg [...] 1 capsule by mo ut every afternoon. Completed/Discontinued Medications Medication Drug Class(es) Dates Sig (Normalized) Sig (Original) amitriptyline hydrochloride 25 mg oral tablet (1 source) Tricyclic Antidepressant Amitriptyline HCl - 25 MG Oral Tablet 1/2 to 1 tab at night Quantity: 0 Refills: 0 Ordered: 30-Jun-2022 DO Active Payers Date Payer Category Payer Unknown 2019 Medicaid [id number] 1985 Unknown [id number] 2.16. 840.1.178824.3.579.2.356 1985 Unknown [id number] 2.16.84 0.1.335644.3.579.2.593 1985 Unknown [id number] 2.16.84 0.1.202739.3.579.2.593 1985 Unknown [id number] 2.16.84 0.1.743406.3.579.2.593 1985 Unknown [id number] 2.16.84 0.1.057176.3.579.2.593 1985 Unknown [id number] 2.16.84 0.1.004033.3.579.2.593 1985 Unknown [id number] 2.16.84 0.1.476718.3.579.2.593 1985 Unknown [id number] 2.16.84 0.1.349225.3.579.2.593 1985 Unknown [id number] 2.16.84 0.1.000305.3.579.2.593 1985 Unknown [id number] 2.16.84 0.1.785380.3.579.2.593 1985 Unknown [id number] 2.16.84 0.1.341854.3.579.2.593 1985 Unknown [id number] 2.16.84 0.1.110030.3.579.2.593 1983 Unknown [id number] 2.16.84 0.1.004703.3.579.2.593 1983 Unknown [id number] 2.16.84 0.1.208365.3.579.2.593 1983 Unknown [id number] 2.16.8 40.1.427298.3.579.2.1286 1985 Unknown [id number] 2.16.8 40.1.033390.3.579.2.1286 1985 Unknown [id number] 2.16.84 0.1.454172.3.579.2.1259 1983 Unknown [id number] 2.16.84 0.1.477007.3.579.2.1259 1983 Unknown [id number] 2.16.840 .1.489275.3.579.2.1259 1985 Unknown [id number] 2.16. 840.1.899820.3.579.2.196 1985 Unknown [id number] 2.16. 840.1.595784.3.579.2.196 1985 Unknown [id number] 2.16. 840.1.383614.3.579.2.196 1985 Unknown [id number] 2.16. 840.1.597094.3.579.2.196 1959 Unknown [id number] Plan of Treatment Date Care Activity Detail Author Start: 04-14-2024 Adult BMI Screening Adult BMI Screen ing [facility] Start: 04-14-2024 Depression Screening Depression Scre ening [facility] Start: 04-14-2024 Tobacco Screening Tobacco Screening [facility] Start: 04-11-2024 FUV, Provider: Chandler Wilkes, Status: Pen, Time: 11:00 AM FUV, Provider: Chandler Wilkes, Status: Pen, Time: 11:00 AM [place] [address] DO Work Phone: Start: 01-10-2024 Influenza vaccination Influenz a Vaccine (Season Ended) [facility] Start: 05-11-2023 Behavioral Health Screening Behavioral Health Screening [facility] Start: 02-17-2023 End: 04-19-2023 Cobalamin (Vitamin B12) [Mass/volume] in Serum or Plasma [facility] Work Phone: Comment on above: Expected: 02/17/2023 , Expires: 04/19/2023 Start: 02-17-2023 End: 04-19-2023 IMMUNOGLOBULINS YARI IMMUNOGLOBULINS YARI Lab Routine Sedimentation rate elevation Expected: 02/17/2023, Expires: 04/19/[address] [facility] Work Phone: Comment on above: Expected: 02/17/2023 , Expires: 04/19/2023 Start: 02-17-2023 End: 04-19-2023 PROTEIN ELECTROPHORESIS SERUM W/INTERP PROTEIN ELECTROPHORESIS SERUM W/INTERP Lab Routine Sedimentation rate elevation Expected: 02/17/2023, Expires: 04/19/[address] [facility] Work Phone: Comment on above: Expected: 02/17/2023 , Expires: 04/19/2023 Start: 01-09-2023 Covid-19 Vaccine () Covid-19 Vaccine () [facility] Start: 01-09-2023 Influenza vaccination [facility] Start: 05-11-2022 Depression Assessment Depression Ass essment [facility] Start: 12-25-2013 HPV Testing HPV Testing [facility] Start: 12-25-2013 Screening for malign ant neoplasm of cervix HPV Testing [facility] Start: 12-25-2004 Pap Testing Pap Testing [facility] Start: 12-25-2004 Screening for malign ant neoplasm of cervix Pap Testing [facility] Start: 12-25-2002 DTaP,Tdap and Td Vac cines (1 - Tdap) DTaP,Tdap and Td Vaccines (1 - Tdap) [facility] Start: 12-25-2002 Hepatitis B Vaccine (1 of 3 - 19+ 3-dose series) Hepatitis B Vaccine (1 of 3 - 19+ 3-dose series) [facility] Start: 12-25-2002 Urine microalbumin profile DTaP,Tdap,Td Vaccine (1 - Tdap) [facility] Start: 12-25-2001 Adult BMI Follow Up Plan Adult BMI F ollow Up Plan [facility] Start: 12-25-2001 Hepatitis C Screening Hepatitis C [facility] Start: 12-25-2001 Hepatitis C screening Hepatitis C [facility] Start: 12-25-2001 HIV Screening HIV Screening [facility] Start: 12-25-2001 HIV screening HIV Screening [facility] Start: 1985 Hepatitis B Vaccine (1 of 3 - 3-dose series) Hepatitis B Vaccine (1 of 3 - 3-dose series) [facility] End: 07-14-2024 Inhibitor screen Inhibitor screen Lab Routine Elevated partial thromboplastin time (PTT) 1 Occurrences starting 07/15/2023 until 07/14/2024 [facility] Work Phone: Comment on above: 1 Occurrences starti ng 07/15/2023 until 07/14/2024 SWAB COLLECTION SPECIMEN SWAB CO LLECTION SPECIMEN Lab Routine Family history of autism Ordered: 08/31/[address] [facility] Work Phone: Comment on above: Ordered: 08/31/2023 [...] with unspecified sharp object(s), initial encounter; Translations: [[facility] UNSPECIFIED SHARP OBJECT INIT] Onset: 03-05-2022 Episodic [...] 03-04-2022 Episodic Other aftercare (1 source) Other meterman (current) drug therapy; Translations: [OTH HEATING OPERATORS ENGINEER CURRENT DRUG THERAPY] Onset: 03-05-2022 Episodic Other aftercare (1 source) long term care administrator (current) use of oral hypoglycemic drugs; Translations: [HEATING OPERATORS ENGINEER USE ORAL HYPOGLYCEMIC DX] Onset: 01-16-2022 [...] Work Phone: Arthroscopy of knee Allison Ara Aichholz Work Phone: section Allison Ara Aic hholz Work Phone: Dilation and curettage Allison Ara Aichholz Work Phone: Hysterectomy Allison Ara Aichhol z Work Phone: NEGATED: Highlighted row has not occurred! Colonoscopy Allison Ara Aichholz Work Phone: Results Test Name Value Interpretation Reference Range Facility 50/50 MIX STUDYon 07-24-2023 aPTT Coag (Bld) [Time] 42 s High 26-37 [facility] Comment on above: Performed By: #### P INR, 45427-5 #### [facility] ([id number]) [address] [place] [address] 120[address] #### CMP, FEPR, 2276-4, CBCA #### [facility] ([id number]) [address], [address] [place] [address] aPTT Coag (Bld) [Time] 35 s Normal 26-37 [facility] Comment on above: Performed By: #### P INR, 18857-2 #### [facility] ([id number]) [address] [place] [address] 12462 #### CMP, FEPR, 2276-4, CBCA #### [facility] ([id number]) [address], [address] [place] [address] PT Coag (PPP) [Time] 11.8 s Normal 9.8-13.2 [facility] Comment on above: Performed By: #### P INR, 23288-1 #### [facility] ([id number]) [address] [place] [address]88[address] #### CMP, FEPR, 2276-4, CBCA #### [facility] ([id number]) [address], [address] [place] [address] Coagulation factor IX activi ty actual/normal Coag (PPP) [Relative time]on 07-24-2023 FACTOR 9 ASSAY 134 % act Normal 65-150 [facility] Comment on above: Performed By: #### P INR, 85805-9 #### [facility] ([id number]) [address] [place] [address] 52062 #### CMP, FEPR, 2276-4, CBCA #### [facility] ([id number]) [address], [address] [place] [address] Coagulation factor VIII acti vity actual/normal Coag (PPP) [Relative time]on 07-24-2023 FACTOR 8 ASSAY 120 % act Normal 50-150 [facility] Comment on above: Performed By: #### P INR, 26243-7 #### [facility] ([id number]) [address] [place] [address]32[address] #### CMP, FEPR, 2276-4, CBCA #### [facility] ([id number]) [address], [address] [place] [address] Coagulation factor XI activi ty actual/normal Coag (PPP) [Relative time]on 07-24-2023 FACTOR 11 ASSAY 153 % act High 65-150 [facility] Comment on above: Performed By: #### P INR, 23876-6 #### [facility] ([id number]) [address] [place] [address] 34335 #### CMP, FEPR, 2276-4, CBCA #### [facility] ([id number]) [address], [address] [place] [address] Coagulation factor XII activ ity actual/normal Coag (PPP) [Relative time]on 07-24-2023 FACTOR 12 ASSAY 86 % act Normal 50-150 [facility] Comment on above: Performed By: #### P INR, 74241-5 #### [facility] ([id number]) [address] [place] [address]1629 #### CMP, FEPR, 6-4, CBCA #### [facility] ([id number]) [address], [address] [place] [address] [facility] ORDERon 024 TEST NAME [id number] VWF COLLAGEN III BINDING NACIT PLASMA Normal [facility] Comment on above: Result Comment: Maria Alejandra ected on 07/14 AT 1430: Previously reported as [id number] VWF COLLAGEN III BINDING Performed By: #### P INR, 31431-3 #### [facility] ([id number]) [address] [place] [address] 57445 #### CMP, FEPR, 6-4, CBCA #### [facility] ([id number]) [address], [address] [place] [address] TEST NAME [id number] VWF GPIBM ACTIVITY NACIT PLASMA Normal [facility] Comment on above: Performed By: #### P INR, 95463-9 #### [facility] ([id number]) [address] [place] [address] 54416 #### CMP, FEPR, 2276-4, CBCA #### [facility] ([id number]) [address], [address] [place] [address] TEST RESULT SEE NOTE Normal [facility] Comment on above: Result Comment: NOTE Test name Result Flag Units RefIntvl VWF Collagen III Binding 110 IU/dL 50-203 For additional information, please visit [email or web address] This test was developed and its performance characteristics determined by [facility]. It has not been cleared or approved by the [place] Food and Drug Administration. This test is used for clinical purposes. It should not be regarded as investigational or for research. This laboratory is certified under the Clinical Laboratory Improvement Amendments (CLIA) as qualified to perform high complexity clinical laboratory testing. Performed by: [facility]. [address] [place] [id number] Performed By: #### P INR, 46580-0 #### [facility] ([id number]) [address] [place] [address], [place] [address] #### CMP, FEPR, 2276-4, CBCA #### [facility] ([id number]) [address] [place] [address], [address] [place] [address] Result Comment: NOTE Test name Result Flag Units RefIntvl VWF GPIbM Activity 86 IU/dL 52-180 For additional information, please visit [email or web address] This test was developed and its performance characteristics determined by [facility]. It has not been cleared or approved by the [place] Food and Drug Administration. This test is used for clinical purposes. It should not be regarded as investigational or for research. This laboratory is certified under the Clinical Laboratory Improvement Amendments (CLIA) as qualified to perform high complexity clinical laboratory testing. Performed by: [facility]. [address] [address] CBC AND AUTO DIFFon 07-13-19 ABSOLUTE BASOPHIL 0.0 X10E9/L Normal 0.0-0.2 [facility] Comment on above: Performed By: #### P INR, 77411-8 #### [facility] ([id number]) [address] [place] [address]94[address] #### CMP, FEPR, 2276-4, CBCA #### [facility] ([id number]) [address] [place] [address], [address] [place] [address] ABSOLUTE NEUTROPHIL 5.0 X10E9/L Normal 1.5-6.6 [facility] Comment on above: Performed By: #### P INR, 15808-9 #### [facility] ([id number]) [address] [place] [address]347 #### CMP, FEPR, 64, CBCA #### [facility] ([id number]) [address], [address] [place] [address] Basophils/100 WBC (Bld) 0.3 % Normal [facility] Comment on above: Performed By: #### P INR, 78591-9 #### [facility] ([id number]) [address] [place] [address] 21224 #### CMP, FEPR, 2276-4, CBCA #### [facility] ([id number]) [address] [place] [address], [address] [place] [address] Eosinophils (Bld) [#/Vol] 0.1 10*3/uL Normal 0.0-0.4 [facility] Comment on above: Performed By: #### P INR, 90925-0 #### [facility] ([id number]) [address] [place] [address] 76684 #### CMP, FEPR, 6-4, CBCA #### [facility] ([id number]) [address], [address] [place] [address] Eosinophils/100 WBC (Bld) 1.3 % Normal [facility] Comment on above: Performed By: #### P INR, 37128-0 #### [facility] ([id number]) [address] [place] [address]85[address] #### CMP, FEPR, 2276-4, CBCA #### [facility] ([id number]) [address], [address] [place] [address] Erythrocyte distribution width (RBC) [Ratio] 13.2 % Normal 11.5-15.0 [facility] Comment on above: Performed By: #### P INR, 42579-2 #### [facility] ([id number]) [address] [place] [address] 41273 #### CMP, FEPR, 2275-4, CBCA #### [facility] ([id number]) [address], [address] [place] [address] Hematocrit (Bld) [Volume fraction] 42.4 % Normal 35-47 [facility] Comment on above: Performed By: #### P INR, 91153-4 #### [facility] ([id number]) [address] [place] [address] 59470 #### CMP, FEPR, 6-4, CBCA #### [facility] ([id number]) [address], [address] [place] [address] Hemoglobin (Bld) [Mass/Vol] 13.9 g/dL Normal 11.7-15.5 [facility] Comment on above: Performed By: #### P INR, 33194-6 #### [facility] ([id number]) [address] [place] [address] 32120 #### CMP, FEPR, 6-4, CBCA #### [facility] ([id number]) [address], [address] [place] [address] Lymphocytes (Bld) [#/Vol] 2.0 10*3/uL Normal 1.0-3.5 [facility] Comment on above: Performed By: #### P INR, 94906-0 #### [facility] ([id number]) [address] [place] [address] 75790 #### CMP, FEPR, 6-4, CBCA #### [facility] ([id number]) [address] [place] [address] Lymphocytes/100 WBC (Bld) 26.7 % Normal [facility] Comment on above: Performed By: #### P INR, 94775-7 #### [facility] ([id number]) [address] [place] [address] 43988 #### CMP, FEPR, 6-4, CBCA #### [facility] ([id number]) [address] [place] [address] MCH (RBC) [Entitic mass] 29.6 pg Normal 27-34 [facility] Comment on above: Performed By: #### P INR, 22160-4 #### [facility] ([id number]) [address] [place] [address] 95457 #### CMP, FEPR, 6-4, CBCA #### [facility] ([id number]) [address], [address] [place] [address] MCHC (RBC) [Mass/Vol] 32.8 g/dL Normal 32-36 [facility] Comment on above: Performed By: #### P INR, 71747-5 #### [facility] ([id number]) [address] [place] [address] 41751 #### CMP, FEPR, 2276-4, CBCA #### [facility] ([id number]) [address], [address] [place] [address] MCV (RBC) [Entitic vol] 90 fL Normal 80-100 [facility] Comment on above: Performed By: #### P INR, 53709-9 #### [facility] ([id number]) [address] [place] [address] 25380 #### CMP, FEPR, 6-4, CBCA #### [facility] ([id number]) [address] [facility], [address] [place] [address] Monocytes (Bld) [#/Vol] 0.5 10*3/uL Normal 0-0.9 [facility] Comment on above: Performed By: #### P INR, 77725-2 #### [facility] ([id number]) [address] [place] [address] 95581 #### CMP, FEPR, 2275-4, CBCA #### [facility] ([id number]) [address] [facility], [address] [place] [address] Monocytes/100 WBC (Bld) 6.9 % Normal [facility] Comment on above: Performed By: #### P INR, 45369-4 #### [facility] ([id number]) [address] [place] [address] 38076 #### CMP, FEPR, 2275-4, CBCA #### [facility] ([id number]) [address] [facility], [address] [place] [address] Neutrophils/100 WBC (Bld) 64.8 % Normal [facility] Comment on above: Performed By: #### P INR, 15663-9 #### [facility] ([id number]) [address] [place] [address] 46114 #### CMP, FEPR, 2276-4, CBCA #### [facility] ([id number]) [address], [address] [place] [address] Platelet mean volume (Bld) [Entitic vol] 11.5 fL Normal 7-12 [facility] Comment on above: Performed By: #### P INR, 34569-1 #### [facility] ([id number]) [address] [place] [address] 75623 #### CMP, FEPR, 2276-4, CBCA #### [facility] ([id number]) [address] [facility], [address] [place] [address] Platelets (Bld) [#/Vol] 205 10*3/uL Normal 150-450 [facility] Comment on above: Performed By: #### P INR, 75716-3 #### [facility] ([id number]) [address] [place] [address] 48169 #### CMP, FEPR, 2276-4, CBCA #### [facility] ([id number]) [address] [facility], [address] [place] [address] RBC COUNT 4.70 X10E12/L Normal 3.80-5.20 [facility] Comment on above: Performed By: #### P INR, 56434-1 #### [facility] ([id number]) [address] [place] [address] 29772 #### CMP, FEPR, 2276-4, CBCA #### [facility] ([id number]) [address] [facility] [facility], [address] [place] [address] WBC (Bld) [#/Vol] 7.7 10*3/uL Normal 4.0-11.0 [facility] Comment on above: Performed By: #### P INR, 04932-7 #### [facility] ([id number]) [address] [place] [address], [place] [address] #### CMP, FEPR, 2276-4, CBCA #### [facility] ([id number]) [address], [address] [place] [address] COMPREHENSIVE METABOLIC PANE Drew 07-13-2023 Albumin [Mass/Vol] 4.6 g/dL Normal 3.2-5.3 [facility] Comment on above: Performed By: #### P INR, 72002-1 #### [facility] ([id number]) [address] [place] [address] 67805 #### CMP, FEPR, 2276-4, CBCA #### [facility] ([id number]) [address] [facility] [facility], [address] [place] [address] ALP [Catalytic activity/Vol] 118 U/L Normal 39-130 [facility] Comment on above: Performed By: #### P INR, 03371-9 #### [facility] ([id number]) [address] [place] [address] 27248 #### CMP, FEPR, 2276-4, CBCA #### [facility] ([id number]) [address] [facility], [address] [place] [address] ALT [Catalytic activity/Vol] 12 U/L Normal 0-31 [facility] Comment on above: Performed By: #### P INR, 02086-8 #### [facility] ([id number]) [address] [place] [address] 97739 #### CMP, FEPR, 2276-4, CBCA #### [facility] ([id number]) [address], [address] [place] [address] Anion gap [Moles/Vol] 10 mmol/L Normal 5-15 [facility] Comment on above: Performed By: #### P INR, 26420-7 #### [facility] ([id number]) [address] [place] [address] 24528 #### CMP, FEPR, 2276-4, CBCA #### [facility] ([id number]) [address] [facility], [address] [place] [address] AST [Catalytic activity/Vol] 13 U/L Normal 0-41 [facility] Comment on above: Performed By: #### P INR, 72794-1 #### [facility] ([id number]) [address] [place] [address] 49626 #### CMP, FEPR, 2276-4, CBCA #### [facility] ([id number]) [address] [facility], [address] [place] [address] Bilirubin [Mass/Vol] 0.4 mg/dL Normal 0.3-1.2 [facility] Comment on above: Performed By: #### P INR, 29531-5 #### [facility] ([id number]) [address] [place] [address] 46105 #### CMP, FEPR, 2276-4, CBCA #### [facility] ([id number]) [facility] [facility], [address] [place] [address] Calcium [Mass/Vol] 9.8 mg/dL Normal 8.5-10.5 [facility] Comment on above: Performed By: #### P INR, 13439-9 #### [facility] ([id number]) [address] [place] [address] 05218 #### CMP, FEPR, 2276-4, CBCA #### [facility] ([id number]) [address] [facility], [address] [place] [address] Chloride [Moles/Vol] 105 mmol/L Normal 98-109 [facility] Comment on above: Performed By: #### P INR, 00099-3 #### [facility] ([id number]) [address] [place] [address] 48451 #### CMP, FEPR, 2276-4, CBCA #### [facility] ([id number]) [address], [address] [place] [address] CO2 [Moles/Vol] 27 mmol/L Normal 22-32 [facility] Comment on above: Performed By: #### P INR, 67745-0 #### [facility] ([id number]) [address] [place] [address] 81459 #### CMP, FEPR, 2276-4, CBCA #### [facility] ([id number]) [address], [address] [place] [address] Creatinine [Mass/Vol] 0.75 mg/dL Normal 0.40-1.00 [facility] Comment on above: Result Comment: METH OD TRACEABLE TO IDMS STANDARD Performed By: #### P INR, 34899-4 #### [facility] ([id number]) [address] [place] [address] 76239 #### CMP, FEPR, 6-4, CBCA #### [facility] ([id number]) [address], [address] [place] [address] eGFR (CKD-EPI) NON-RACE DEPENDENT >90 Normal >59 [facility] Comment on above: Result Comment: Reported eGFR is based on the CKD-EPI 2021 equation that does not use a race coefficient. Performed By: #### P INR, 06078-3 #### [facility] ([id number]) [address] [place] [address] 70291 #### CMP, FEPR, 2276-4, CBCA #### [facility] ([id number]) [address], [address] [place] [address] Glucose [Mass/Vol] 87 mg/dL Normal 65-99 [facility] Comment on above: Performed By: #### P INR, 43458-5 #### [facility] ([id number]) [address] [place] [address] 76786 #### CMP, FEPR, 2276-4, CBCA #### [facility] ([id number]) [address], [address] [place] [address] Potassium [Moles/Vol] 4.0 mmol/L Normal 3.5-5.0 [facility] Comment on above: Performed By: #### P INR, 05555-0 #### [facility] ([id number]) [address] [place] [address] 03670 #### CMP, FEPR, 2275-4, CBCA #### [facility] ([id number]) [address], [address] [place] [address] Protein [Mass/Vol] 7.7 g/dL Normal 6.0-8.0 [facility] Comment on above: Performed By: #### P INR, 93293-1 #### [facility] ([id number]) [address] [place] [address] 33366 #### CMP, FEPR, 6-4, CBCA #### [facility] ([id number]) [address], [address] [place] [address] Sodium [Moles/Vol] 142 mmol/L Normal 134-146 [facility] Comment on above: Performed By: #### P INR, 65751-0 #### [facility] ([id number]) [address] [place] [address] 20391 #### CMP, FEPR, 6-4, CBCA #### [facility] ([id number]) [address], [address] [place] [address] Urea nitrogen [Mass/Vol] 13 mg/dL Normal 5-23 [facility] Comment on above: Performed By: #### P INR, 90737-5 #### [facility] ([id number]) [address] [place] [address] 97573 #### CMP, FEPR, 2276-4, CBCA #### [facility] ([id number]) [address], [address] [place] [address] Coagulation factor VIII acti vity actual/normal Coag (PPP) [Relative time]on 07-13-2023 FACTOR 8 ASSAY 97 % act Normal 50-150 [facility] Comment on above: Performed By: #### P INR, 79610-1 #### [facility] ([id number]) [address] [place] [address] 38159 #### CMP, FEPR, 2275-4, CBCA #### [facility] ([id number]) [address] [facility], [address] [place] [address] FERRITINon 07-13-2023 Ferritin [Mass/Vol] 60 ng/mL Normal 11-307 [facility] Comment on above: Performed By: #### P INR, 24673-2 #### [facility] ([id number]) [address] [place] [address] 46783 #### CMP, FEPR, 2275-4, CBCA #### [facility] ([id number]) [address], [address] [place] [address] IRON PROFILEon 07-13-2023 Iron [Mass/Vol] 66 ug/dL Normal 50-170 [facility] Comment on above: Performed By: #### P INR, 16374-3 #### [facility] ([id number]) [address] [place] [address] 32667 #### CMP, FEPR, 2276-4, CBCA #### [facility] ([id number]) [address], [address] [place] [address] IRON BINDING 318 ug/dL Normal 250-425 [facility] Comment on above: Performed By: #### P INR, 17618-2 #### [facility] ([id number]) [address] [place] [address] 27842 #### CMP, FEPR, 2276-4, CBCA #### [facility] ([id number]) [address], [address] [place] [address] IRON SATURATION 21 % SATURATION Normal 15-50 [facility] Comment on above: Performed By: #### P INR, 92491-8 #### [facility] ([id number]) [address] [place] [address] 37015 #### CMP, FEPR, 2276-4, CBCA #### [facility] ([id number]) [address] [facility], [address] [place] [address] Laboratory comment Aftab (Repo rt)on 07-13-2023 UNLISTED LAB TEST Sent to reference lab Normal [facility] Comment on above: Performed By: #### A GO #### [facility] ([id number]) [address] [place] [address] 27441 Performed By: #### P INR, 05900-4 #### [facility] ([id number]) [address] [place] [address] 92348 #### CMP, FEPR, 2276-4, CBCA #### [facility] ([id number]) [address] [facility], [address] [place] [address] PROTIME AND INRon 07-13-2023 INR Coag (PPP) [Relative time] 1.0 {INR} Normal 0.8-1.1 [facility] Comment on above: Performed By: #### P INR, 22699-9 #### [facility] ([id number]) [address] [place] [address] #### CMP, FEPR, 2276-4, CBCA #### [facility] ([id number]) [address], [facility] [address] [place] [address] PT Coag (PPP) [Time] 12.0 s Normal 9.8-13.2 [facility] Comment on above: Result Comment: NEW REFERENCE RANGE Performed By: #### P INR, 89787-4 #### [facility] ([id number]) [address] [place] [address] 81499 #### CMP, FEPR, 2276-4, CBCA #### [facility] ([id number]) [address] [facility], [address] [address] aPTT Coag (PPP) [Time]on aPTT Coag (Bld) [Time] 46 s High 26-37 [facility] Comment on above: Result Comment: NEW REFERENCE RANGE Performed By: #### P INR, 15416-1 #### [facility] ([id number]) [address] [place] [address] 45447 #### CMP, FEPR, 2276-4, CBCA #### [facility] ([id number]) [address], [address] [address] vWf Ag IA Qn (PPP)on 024 VON WILLEBRAND AG 118 % Normal 50-150 [facility] Comment on above: Result [...] 69:1691, 1989 Performed By: #### P INR, 28647-6 #### [facility] ([id number]) [address] [place] [address] 86117 #### CMP, FEPR, 2276-4, CBCA #### [facility] ([id number]) [address] [place] [address], [address] [place] [address] vWf.activity actual/normal I A (PPP) [Relative ratio]on 07-13-2023 von Willebrand Factor Activity 88 % Normal 50-200 [facility] Comment on above: Performed By: #### P INR, 68661-4 #### [facility] ([id number]) [address] [place] [address] 93173 #### CMP, FEPR, 2276-4, CBCA #### [facility] ([id number]) [address] [place] [address], [address] [place] [address] 25(OH)D3 [facility] 2022 25-hydroxyvitamin D3 [Mass/Vol] 14.6 ng/mL Low 31.0-80.0 [facility] Comment on above: Order Comment: Speci men Type: BLOOD SPECIMEN Ordering Facility: [facility] Address: [address] [place] [address] Result Comment: Clas sification of 25 [place] Vitamin D status: Deficiency/Insufficiency: < or = 30 ng/ml. Sufficiency/Optimal Levels: 31-80 ng/mL Toxicity: > 100 ng/mL. Test performed by chemiluminescent immunoassay. Performed By: #### 1 989-3 #### [facility] CLIA [id number] [address] [facility] [id number] [place] [address] [place] CBC W Auto Differential pane l (Bld)on 02-17-2023 Basophils (Bld) [#/Vol] 0.03 10*3/uL Normal <0.11 [facility] Comment on above: Order Comment: Speci men Type: BLOOD SPECIMEN Ordering Facility: [facility] Address: [address] [place] [address] Performed By: #### 5 7021-8 #### [facility] CLIA [id number] [address] [place] [address] [place] Basophils (Bld) [#/Vol] 0.03 10*3/uL <0.11 k/uL [facility] Basophils/100 WBC (Bld) 0.3 % Normal [facility] Comment on above: Order Comment: Speci men Type: BLOOD SPECIMEN Ordering Facility: [facility] Address: [address] [place] [address] Performed By: #### 5 7021-8 #### [facility] CLIA [id number] [address] [place] [address] [place] Basophils/100 WBC (Bld) 0.3 % [facility] Differential cell count method Nom (Bld) Auto Normal [facility] Comment on above: Order Comment: Speci men Type: BLOOD SPECIMEN Ordering Facility: [facility] Address: [address] [place] [address] Performed By: #### 5 7021-8 #### [facility] CLIA [id number] [address] [place] [address] [place] Differential cell count method Nom (Bld) Auto [facility] Eosinophils (Bld) [#/Vol] 0.12 10*3/uL Normal <0.46 [facility] Comment on above: Order Comment: Speci men Type: BLOOD SPECIMEN Ordering Facility: [facility] Address: [address] [place] [address] Performed By: #### 5 7021-8 #### [facility] CLIA [id number] [address] [place] [address] [place] Eosinophils (Bld) [#/Vol] 0.12 10*3/uL <0.46 k/uL [facility] Eosinophils/100 WBC (Bld) 1.2 % Normal [facility] Comment on above: Order Comment: Speci men Type: BLOOD SPECIMEN Ordering Facility: [facility] Address: [address] [place] [address] Performed By: #### 5 7021-8 #### [facility] CLIA [id number] [address] [place] [address] [place] Eosinophils/100 WBC (Bld) 1.2 % [facility] Erythrocyte distribution width (RBC) [Ratio] 12.7 % Normal 11.5-15.0 [facility] Comment on above: Order Comment: Speci men Type: BLOOD SPECIMEN Ordering Facility: [facility] Address: [address] [place] [address] Performed By: #### 5 7021-8 #### [facility] CLIA [id number] [address] [place] [address] [place] Erythrocyte distribution width (RBC) [Ratio] 12.7 % 11.5 - 15.0 % [facility] Hematocrit (Bld) [Volume fraction] 44.5 % Normal 36.0-46.0 [facility] Comment on above: Order Comment: Speci men Type: BLOOD SPECIMEN Ordering Facility: [facility] Address: [address] [place] [address] Performed By: #### 5 7021-8 #### [facility] CLIA [id number] [address] [place] [address] [place] Hematocrit (Bld) [Volume fraction] 44.5 % 36.0 - 46.0 % [facility] Hemoglobin (Bld) [Mass/Vol] 14.4 g/dL Normal 11.5-15.5 [facility] Comment on above: Order Comment: Speci men Type: BLOOD SPECIMEN Ordering Facility: [facility] Address: [address] [place] [address] Performed By: #### 5 7021-8 #### [facility] CLIA [id number] [address] [place] [address] [place] Hemoglobin (Bld) [Mass/Vol] 14.4 g/dL 11.5 - 15.5 g/dL [facility] Immature granulocytes (Bld) [#/Vol] 0.03 10*3/uL Normal <0.10 [facility] Comment on above: Order Comment: Speci men Type: BLOOD SPECIMEN Ordering Facility: [facility] Address: [address] [place] [address] Performed By: #### 5 7021-8 #### [facility] CLIA [id number] [address] [place] [address] [place] Immature granulocytes (Bld) [#/Vol] 0.03 10*3/uL <0.10 k/uL [facility] Immature granulocytes/100 WBC (Bld) 0.3 % Normal [facility] Comment on above: Order Comment: Speci men Type: BLOOD SPECIMEN Ordering Facility: [facility] Address: [address] [place] [address] Performed By: #### 5 7021-8 #### [facility] CLIA [id number] [address] [place] [address] [place] Immature granulocytes/100 WBC (Bld) 0.3 % [facility] Lymphocytes (Bld) [#/Vol] 1.93 10*3/uL Normal 1.00-4.00 [facility] Comment on above: Order Comment: Speci men Type: BLOOD SPECIMEN Ordering Facility: [facility] Address: [address] [place] [address] Performed By: #### 5 7021-8 #### [facility] CLIA [id number] [address] [place] [address] [place] Lymphocytes (Bld) [#/Vol] 1.93 10*3/uL 1.00 - 4.00 k/uL [facility] Lymphocytes/100 WBC (Bld) 19.7 % Normal [facility] Comment on above: Order Comment: Speci men Type: BLOOD SPECIMEN Ordering Facility: [facility] Address: [address] [place] [address] Performed By: #### 5 7021-8 #### [facility] CLIA [id number] [address] [place] [address] [place] Lymphocytes/100 WBC (Bld) 19.7 % [facility] MCH (RBC) [Entitic mass] 30.3 pg Normal 26.0-34.0 [facility] Comment on above: Order Comment: Speci men Type: BLOOD SPECIMEN Ordering Facility: [facility] Address: [address] [place] [address] Performed By: #### 5 7021-8 #### [facility] CLIA [id number] [address] [place] [address] [place] MCH (RBC) [Entitic mass] 30.3 pg 26.0 - 34.0 pg [facility] MCHC (RBC) [Mass/Vol] 32.4 g/dL Normal 30.5-36.0 [facility] Comment on above: Order Comment: Speci men Type: BLOOD SPECIMEN Ordering Facility: [facility] Address: [address] [place] [address] Performed By: #### 5 7021-8 #### [facility] CLIA [id number] [address] [place] [address] [place] MCHC (RBC) [Mass/Vol] 32.4 g/dL 30.5 - 36.0 g/dL [facility] MCV (RBC) [Entitic vol] 93.5 fL Normal 80.0-100.0 [facility] Comment on above: Order Comment: Speci men Type: BLOOD SPECIMEN Ordering Facility: [facility] Address: [address] [place] [address] Performed By: #### 5 7021-8 #### [facility] CLIA [id number] [address] [place] [address] [place] MCV (RBC) [Entitic vol] 93.5 fL 80.0 - 100.0 fL [facility] Monocytes (Bld) [#/Vol] 0.78 10*3/uL Normal <0.87 [facility] Comment on above: Order Comment: Speci men Type: BLOOD SPECIMEN Ordering Facility: [facility] Address: [address] [place] [address] Performed By: #### 5 7021-8 #### [facility] CLIA [id number] [address] [place] [address] [place] Monocytes (Bld) [#/Vol] 0.78 10*3/uL <0.87 k/uL [facility] Monocytes/100 WBC (Bld) 7.9 % Normal [facility] Comment on above: Order Comment: Speci men Type: BLOOD SPECIMEN Ordering Facility: [facility] Address: [address] [place] [address] Performed By: #### 5 7021-8 #### [facility] CLIA [id number] [address] [place] [address] [place] Monocytes/100 WBC (Bld) 7.9 % [facility] Neutrophils (Bld) [#/Vol] 6.93 10*3/uL Normal 1.45-7.50 [facility] Comment on above: Order Comment: Speci men Type: BLOOD SPECIMEN Ordering Facility: [facility] Address: [address] [place] [address] Performed By: #### 5 7021-8 #### [facility] CLIA [id number] [address] [place] [address] [place] Neutrophils (Bld) [#/Vol] 6.93 10*3/uL 1.45 - 7.50 k/uL [facility] Neutrophils/100 WBC (Bld) 70.6 % Normal [facility] Comment on above: Order Comment: Speci men Type: BLOOD SPECIMEN Ordering Facility: [facility] Address: [address] [place] [address] Performed By: #### 5 7021-8 #### [facility] CLIA [id number] [address] [place] [address] [place] Neutrophils/100 WBC (Bld) 70.6 % [facility] Nucleated RBC (Bld) [#/Vol] 10*3/uL Normal <0.01 [facility] Comment on above: Order Comment: Speci men Type: BLOOD SPECIMEN Ordering Facility: [facility] Address: [address] [place] [address] Performed By: #### 5 7021-8 #### [facility] CLIA [id number] [address] [place] [address] [place] Nucleated RBC (Bld) [#/Vol] <0.01 k/uL [facility] Nucleated RBC/100 WBC (Bld) [Ratio] 0.0 /100 WBC Normal [facility] Comment on above: Order Comment: Speci men Type: BLOOD SPECIMEN Ordering Facility: [facility] Address: [address] [place] [address] Performed By: #### 5 7021-8 #### [facility] CLIA [id number] [address] [place] [address] [place] Nucleated RBC/100 WBC (Bld) [Ratio] 0.0 /100 WBC [facility] Platelet mean volume (Bld) [Entitic vol] 13.2 fL High 9.0-12.7 [facility] Comment on above: Order Comment: Speci men Type: BLOOD SPECIMEN Ordering Facility: [facility] Address: [address] [place] [address] Performed By: #### 5 7021-8 #### [facility] CLIA [id number] [address] [place] [address] [place] Platelet mean volume (Bld) [Entitic vol] 13.2 fL High 9.0 - 12.7 fL [facility] Platelets (Bld) [#/Vol] 245 10*3/uL Normal 150-400 [facility] Comment on above: Order Comment: Speci men Type: BLOOD SPECIMEN Ordering Facility: [facility] Address: [address] [place] [address] Result Comment: Resu lts checked and verified.No clot detected. Performed By: #### 5 7021-8 #### [facility] CLIA [id number] [address] [place] [address] [place] Platelets (Bld) [#/Vol] 245 10*3/uL 150 - 400 k/uL [facility] RBC (Bld) [#/Vol] 4.76 10*6/uL Normal 3.90-5.20 [facility] Comment on above: Order Comment: Speci men Type: BLOOD SPECIMEN Ordering Facility: [facility] Address: [address] [place] [address] Performed By: #### 5 7021-8 #### [facility] CLIA [id number] [address] [place] [address] [place] RBC (Bld) [#/Vol] 4.76 10*6/uL 3.90 - 5.2 0 m/uL [facility] WBC (Bld) [#/Vol] 9.82 10*3/uL Normal 3.70-11.00 [facility] Comment on above: Order Comment: Speci men Type: BLOOD SPECIMEN Ordering Facility: [facility] Address: [address] [place] [address] Performed By: #### 5 7021-8 #### [facility] CLIA [id number] [address] [place] [address] [place] WBC (Bld) [#/Vol] 9.82 10*3/uL 3.70 - 11. 00 k/uL [facility] CNOVon 02-17-2023 CNOV Office Visit (DORIE ) DENISHA VELASCO ([id number]) 1985 F Date Time Provider Department 02/17/23 9:00 AM ALBERTO MARCUS During your visit today, we recorded the following information about you: Pulse Blood pressure Weight 96/minute 116/82 126.6 kg Alberto Marcus MD 02/17/2023 10:02 AM Signed [facility] Date of Service: 02/17/2023 Patient: Denisha Velasco Medical Record: [id number] Last Rheumatology visit: None at [facility] History of Present Illness Denisha [...] other than (more content not included)... Normal [facility] VITAMIN D 25 HYDROXYon 02-17 25-hydroxyvitamin D3 [Mass/Vol] 14.6 ng/mL Low 31.0 - 80.0 ng/mL [facility] Vit B12 SerPl-mCncon 023 Cobalamin (Vitamin B12) [Mass/Vol] 347 pg/mL Normal 232-1245 [facility] Comment on above: Order Comment: Speci men Type: BLOOD SPECIMEN Ordering Facility: [facility] Address: [address] [place] [address] Performed By: #### 2 132-9 #### [facility] CLIA [id number] [address] OF [facility] SARS-CoV2 IgMon 07-07-2022 Comment Notes Normal [facility] Comment on above: Result Comment: Nega tive results to antibodies against SARS-CoV-2 are generally indicative of non-exposure to virus and lack of longevity of antibody response. Performed By: #### C VDABM #### [facility] [address] [place] [address] Dr. Karey Ordoñez Disclaimer Notes Normal [facility] Comment on above: Result Comment: This is a lab developed test. This test has been validated in accordance with [facility] guidelines and FDA guidance document (Policy [...] due to past or present infection with [id number] coronavirus strains, such as coronavirus HKU1, NL63, OC43, or 229E. Performed By: #### C VDABM #### [facility] [address] [place] [address] Dr. Karey Ordoñez Electronically Signed By Comment Normal [facility] Comment on above: Result Comment: Fernando oc Scales Performed By: #### C VDABM #### [facility] [address] [place] [address] Dr. Karey Ordoñez Methodology Comment Normal [facility] Comment on above: Result Comment: Chem iluminescence Performed By: #### C VDABM #### [facility] [address] [place] [address] Dr. Karey Ordoñez References Notes Normal [facility] Comment on above: Result Comment: Sheldon [...] application of serological tests in clinical practice. 10.1101/[id number]. Performed By: #### C VDABM #### [facility] [address] [place] [address] Dr. Karey Ordoñez Result Negative [facility] Comment on above: Performed By: #### C VDABM #### [facility] [address] [place] [address] Dr. Karey Ordoñez Value 0.03 COI Normal [facility] Comment on above: Result Comment: <0.8 : Negative 0.8-<1.0: Indeterminate >=1.0: Positive Performed By: #### C VDABM #### [facility] [address] [place] [address] Dr. Karey Ordoñez SARS-CoV2 IgGon 07-04-2022 SARS-CoV-2 (COVID-19) IgG IA.rapid Ql (S/P/Bld) >800.0 Normal Neg <13.[address] [facility] Comment on above: Performed By: #### C VDIGG #### [facility] [address] [address] [address] Karey Ordoñez SARS-CoV-2 (COVID-19) RNA RUBY+probe Ql (Unsp spec) Positive Normal [facility] Comment on above: Result Comment: Anti bodies against the SARS-CoV-2 spike protein, including the receptor binding domain (RBD) were detected. It is not yet known what level of antibody to SARS-CoV-2 spike protein correlates to immunity against developing symptomatic SARS-CoV-2 disease. This assay was performed using [employer](R) SARS-CoV-2 Trimeric S IgG assay. Performed By: #### C VDIGG #### [facility] [address] [place] [address] Dr. Karey rOdoñez Office Visit (Cardiology)on 06-30-2022 Follow-up visit Diagnoses/Problems Assessed Benign essential hypertension (401.1) (I10) Vertigo (780.4) (R42) Morbid obesity with BMI of 45.0-49.9, adult (278.01,V85.42) (E66.01,Z68.42) Never smoker Orders Morbid obesity with BMI of 45.0-49.9, adult Healthy Weight Tips; Status:Complete - Retrospective Authorization; Done: [id number] Some eating tips that can help you lose weight.; Status:Complete - Retrospective Authorization; Done: [id number] SocHx: Never smoker Tobacco Use Screening; Status:Complete; Done: [id number] Patient Instructions Please bring all medicines, vitamins, [...] negative for complaint. Vitals Vital Signs Recorded: [id number] 09:45AM Heart Rate74, R Radial Shcbaevq968, RUE, Sitting Hmjoxugjz99, RUE, Sitting Height5 ft 3 in Rzului112 lb BMI Nmalrlsmhb35.42 kg/m2 BSA Calculated2.23 Tobacco Useb) No PHQ-2 [...] . Abdomen: (more content not included)... Normal hiogi Tobacco Screening.on 023 Adult depression screening assessment No [facility] 250 DO Work Phone: Fall risk assessment a) No falls within the last year [facility] [place] 250 DO Work Phone: Tobacco use status CPHS b) No [facility] 250 DO Work Phone: FREE T4on 05-12-2022 Free T4 [Mass/Vol] 1.11 ng/dL Normal 0.76-1.46 [facility] Comment on above: Performed By: #### F T4 #### [facility] [address] [place] [address] Dr. Karey Ordoñez GLYCOHEMOGLOBIN A1Con 2022 ADA RECOMMENDATION SEE BELOW Normal [facility] Comment on above: Result Comment: ADA RECOMMENDED LIMIT 4.0 - 6.0 ADA THERAPEUTIC TARGET < 7.0 ACTION SUGGESTED > 7.0 Performed By: #### F T4 #### [facility] [address] [address] [address] Karey Ordoñez Glucose [Mass/Vol] 114 mg/dL Normal [facility] Comment on above: Performed By: #### F T4 #### [facility] [address] [place] [address] Dr. Karey Ordoñez HbA1c (Bld) [Mass fraction] 5.6 % Normal 4.5-6.2 [facility] Comment on above: Performed By: #### F T4 #### [facility] [address] [place] [address] Dr. Karey Ordoñez PROF CHEM 8 (BAS METB)on Anion gap [Moles/Vol] 13.5 mmol/L Normal [facility] Comment on above: Performed By: #### T SH, BMP #### [facility] [address] [place] [address] Dr. Karey Ordoñez Calcium [Mass/Vol] 9.1 mg/dL Normal 8.5-10.1 [facility] Comment on above: Performed By: #### T SH, BMP #### [facility] [address] [place] [address] Dr. Karey Ordoñez Chloride [Moles/Vol] 103 mmol/L Normal 98-[address] [facility] Comment on above: Performed By: #### T SH, BMP #### [facility] [address] [place] [address] Dr. Karey Ordoñez CO2 [Moles/Vol] 26.7 mmol/L Normal 21.0-32.0 [facility] Comment on above: Performed By: #### T SH, BMP #### [facility] [address] [place] [address] Dr. Karey Ordoñez Creatinine [Mass/Vol] 0.79 mg/dL Normal 0.55-1.02 [facility] Comment on above: Performed By: #### T SH, BMP #### [facility] [address] [place] [address] Dr. Karey Ordoñez EGFR-AF AFGHAN >60 Normal >=60 [facility] Comment on above: Performed By: #### T SH, BMP #### [facility] [address] [place] [address] Dr. Karey Ordoñez EGFR-NON AF AFGHAN >60 Normal >=60 [facility] Comment on above: Performed By: #### T TAMMY, BMP #### [facility] [address] [place] [address] Dr. Karey Ordoñez Glucose [Mass/Vol] 94 mg/dL Normal 74-106 [facility] Comment on above: Performed By: #### T TAMMY, BMP #### [facility] [address] [place] [address] Dr. Karey Ordoñez Potassium [Moles/Vol] 4.2 mmol/L Normal 3.5-5.1 [facility] Comment on above: Performed By: #### T SH, BMP #### [facility] [address] [place] [address] Dr. Karey Ordoñez Sodium [Moles/Vol] 139 mmol/L Normal 136-145 [facility] Comment on above: Performed By: #### T TAMMY, BMP #### [facility] [address] [place] [address] Dr. Karey Ordoñez Urea nitrogen [Mass/Vol] 12.0 mg/dL Normal 7.0-18.[address] [facility] Comment on above: Performed By: #### T SH, BMP #### [facility] [address] [place] [address] Dr. Karey Ordoñez Urea nitrogen/Creatinine [Mass ratio] 15.2 mg/mg Normal [facility] Comment on above: Performed By: #### T SH, BMP #### [facility] [address] [place] [address] Dr. Karey Ordoñez TSHon 05-12-2022 TSH 1.098 uIU/mL Normal 0.358-3.740 [facility] [place] [facility] Comment on above: Performed By: #### T SH, BMP #### [facility] [address] [address] [address] Karey Ordoñez FREE T3on 02-06-2022 FREE T3 1.79 pg/mlL Critically low 2.18-3.98 [facility] Comment on above: Performed By: #### F T3, TSH #### [facility] [address] [address] [address] Karey Ordoñez FREE T4on 02-06-2022 Free T4 [Mass/Vol] 1.12 ng/dL Normal 0.76-1.46 [facility] Comment on above: Performed By: #### F T4 #### [facility] [address] [address] [address] Karey Ordoñez TSHon 02-06-2022 TSH 2.571 uIU/mL Normal 0.358-3.740 [facility] Comment on above: Performed By: #### F T3, TSH #### [facility] [address] [place] [address] Dr. Karey Ordoñez MRI BRAIN WO CONon MRI BRAIN WO CON EXAMINATION: MRI BRA IN [facility], 01/22/2022 12:32 PM EDT HISTORY: Paresthesia COMPARISON: [...] by: VERO ATKINS Date: 2022-01-22 13:[address] [facility] CT CSPINE WO CONon 2 CT [...] 2022-01-18 10:22 Normal [address] [facility] US CAROTID ART BILon 022 US CAROTID [...] 2022-01-17 18:33 Normal [facility] CT HEAD WO CONon 01-15-2022 CT HEAD [...] by: VERO ATKINS Date: 2022-01-15 11:07 Normal [facility] MRI KNEE RT WO CONon 022 [...] by: VERO ATKINS Date: 2021-12-18 15:05 Normal [facility] XR KNEE RT 3Von 12-10-2021 XR [...] 2021-12-10 06:[address] [facility] LIVER PROFILEon 10-29-2021 Albumin [Mass/Vol] 3.7 g/dL Normal 3.4-5.0 [facility] Comment on above: Performed By: #### F T4 #### [facility] [address] [place] [address] Dr. Karey Ordoñez Albumin/Globulin [Mass ratio] 0.9 {ratio} Normal [facility] Comment on above: Performed By: #### F T4 #### [facility] [address] [place] [address] Dr. Karey Ordoñez ALP [Catalytic activity/Vol] 111 U/L Normal 46-116 [facility] Comment on above: Performed By: #### F T4 #### [facility] [address] [place] [address] Dr. Karey Ordoñez ALT [Catalytic activity/Vol] 22 U/L Normal 14-59 [facility] Comment on above: Performed By: #### F T4 #### [facility] [address] [place] [address] Dr. Karey Ordoñez AST [Catalytic activity/Vol] 12 U/L Critically low 15-37 [facility] Comment on above: Performed By: #### F T4 #### [facility] [address] [place] [address] Dr. Karey Ordoñez BILI, CONJUGATED 0.1 mg/dL Normal 0.0-0.2 [facility] Comment on above: Performed By: #### F T4 #### [facility] [address] [place] [address] Dr. Karey Ordoñez Bilirubin [Mass/Vol] 0.5 mg/dL Normal 0.2-1.0 [facility] Comment on above: Performed By: #### F T4 #### [facility] [address] [place] [address] Dr. Karey Ordoñez Globulin (S) [Mass/Vol] 4.1 g/dL Normal [facility] Comment on above: Performed By: #### F T4 #### [facility] [address] [place] [address] Dr. Karey Ordoñez Protein [Mass/Vol] 7.8 g/dL Normal 6.4-8.2 [facility] Comment on above: Performed By: #### F T4 #### [facility] [address] [place] [address] Dr. Karey Ordoñez INSULINon 10-02-2021 Insulin 10.5 uIU/mL Normal 2.6-24.9 [facility] Comment on above: Performed By: #### I NSULIN #### [facility] [address] [place] [address] Dr. Karey Ordoñez CBC AUTO DIFFon 10-01-2021 BASO # 0.0 103/ul Normal 0.0-0.1 [facility] Comment on above: Performed By: #### F T4 #### [facility] [address] [place] [address] Dr. Karey Ordoñez Basophils/100 WBC (Bld) 0.4 % Normal 0.2-2.0 [facility] Comment on above: Performed By: #### F T4 #### [facility] [address] [place] [address] Dr. Karey Ordoñez EO # 0.1 103/ul Normal 0.0-0.7 [facility] Comment on above: Performed By: #### F T4 #### [facility] [address] [place] [address] Dr. Karey Ordoñez Eosinophils/100 WBC (Bld) 1.1 % Normal 0.9-7.0 [facility] Comment on above: Performed By: #### F T4 #### [facility] [address] [place] [address] Dr. Karey Ordoñez Erythrocyte distribution width (RBC) [Ratio] 12.9 % Normal 11.0-15.0 [facility] Comment on above: Performed By: #### F T4 #### [facility] [address] [place] [address] Dr. Karey Ordoñez Hematocrit (Bld) [Volume fraction] 41.5 % Normal 36.0-48.0 [facility] Comment on above: Performed By: #### F T4 #### [facility] [address] [place] [address] Dr. Karey Ordoñez Hemoglobin (Bld) [Mass/Vol] 13.0 g/dL Normal 12.0-16.0 [facility] Comment on above: Performed By: #### F T4 #### [facility] [address] [place] [address] Dr. Karey Ordoñez IG # 0.04 10e3/ul Critically high 0.00-0.03 [facility] Comment on above: Performed By: #### F T4 #### [facility] [address] [place] [address] Dr. Karey Ordoñez IG % 0.5 % Normal 0.0-0.5 [facility] Comment on above: Performed By: #### F T4 #### [facility] [address] [place] [address] Dr. Karey Ordoñez LYMPH # 1.9 103/ul Normal 1.2-3.8 [facility] Comment on above: Performed By: #### F T4 #### [facility] [address] [place] [address] Dr. Karey Ordoñez Lymphocytes/100 WBC (Bld) 22.7 % Normal 20.5-60.0 [facility] Comment on above: Performed By: #### F T4 #### [facility] [address] [place] [address] Dr. Karey Ordoñez MANUAL DIFF REQ NO Normal [facility] Comment on above: Performed By: #### F T4 #### [facility] [address] [place] [address] Dr. Karey Ordoñez MCH (RBC) [Entitic mass] 28.9 pg Normal 26.7-34.0 [facility] Comment on above: Performed By: #### F T4 #### [facility] [address] [place] [address] Dr. Karey Ordoñez MCHC (RBC) [Mass/Vol] 31.3 g/dL Normal 29.9-35.2 [facility] Comment on above: Performed By: #### F T4 #### [facility] [address] [place] [address] Dr. Karey Ordoñez MCV (RBC) [Entitic vol] 92.2 fL Normal 81.0-99.0 [facility] Comment on above: Performed By: #### F T4 #### [facility] [address] [place] [address] Dr. Karey Ordoñez MONO # 0.6 103/ul Normal 0.3-0.8 [facility] Comment on above: Performed By: #### F T4 #### [facility] [address] [place] [address] Dr. Karey Ordoñez Monocytes/100 WBC (Bld) 6.8 % Normal 1.7-12.0 [facility] Comment on above: Performed By: #### F T4 #### [facility] [address] [place] [address] Dr. Karey Ordoñez NEUT # 5.8 103/ul Normal 1.4-6.5 [facility] Comment on above: Performed By: #### F T4 #### [facility] [address] [place] [address] Dr. Karey Ordoñez Neutrophils/100 WBC (Bld) 68.5 % Normal 43.0-75.0 [facility] Comment on above: Performed By: #### F T4 #### [facility] [address] [place] [address] Dr. Karey Ordoñez Platelet mean volume (Bld) [Entitic vol] 12.8 fL Normal 9.5-13.[address] [facility] Comment on above: Performed By: #### F T4 #### [facility] [address] [place] [address] Dr. Karey Ordoñez PLT 231 103/ul Normal 150-[address] [facility] Comment on above: Performed By: #### F T4 #### [facility] [address] [place] [address] Dr. Karey Ordoñez RBC 4.50 106/ul Normal 4.20-5.[address] [facility] Comment on above: Performed By: #### F T4 #### [facility] [address] [address] [address] Karey Ordoñez WBC 8.5 103/ul Normal 4.0-11.[address] [facility] Comment on above: Performed By: #### F T4 #### [facility] [address] [address] [address] Karey Ordoñez FREE T4on 10-01-2021 Free T4 [Mass/Vol] 1.27 ng/dL Normal 0.76-1.46 [facility] Comment on above: Performed By: #### F T4 #### [facility] [address] [address] [address] Karey Ordoñez GLYCOHEMOGLOBIN A1Con 2021 ADA RECOMMENDATION SEE BELOW Normal [facility] Comment on above: Result Comment: ADA RECOMMENDED LIMIT 4.0 - 6.0 ADA THERAPEUTIC TARGET < 7.0 ACTION SUGGESTED > 7.0 Performed By: #### A 1C #### [facility] [address] [place] [address] Dr. Karey Ordoñez Glucose [Mass/Vol] 123 mg/dL Normal [facility] Comment on above: Performed By: #### A 1C #### [facility] [address] [place] [address] Dr. Karey Ordoñez HbA1c (Bld) [Mass fraction] 5.9 % Normal 4.5-6.2 [facility] Comment on above: Performed By: #### A 1C #### [facility] [address] [place] [address] Dr. Karey Ordoñez LIPID PROFILEon 10-01-2021 CHOL-HDL RATIO NORM SEE BELOW Normal [facility] Comment on above: Result Comment: 3.3 - 4.4 LOW RISK 4.4 - 7.1 AVERAGE RISK 7.1 - 11.0 MODERATE RISK >11.0 HIGH RISK Performed By: #### F T4 #### [facility] [address] [place] [address] Dr. Karey Ordoñez Cholesterol [Mass/Vol] 182 mg/dL Normal <=200 [facility] Comment on above: Performed By: #### F T4 #### [facility] [address] [address] [address] Karey Ordoñez Cholesterol in HDL [Mass/Vol] 52 mg/dL Normal 40-60 [facility] Comment on above: Performed By: #### F T4 #### [facility] [address] [place], [place] [address] Dr. Karey Ordoñez Cholesterol in LDL [Mass/Vol] 115.8 mg/dL Normal [facility] Comment on above: Performed By: #### F T4 #### [facility] [address] [address] [address] Karey Ordoñez Cholesterol.total/Ch olesterol in HDL [Mass ratio] 3.5 {ratio} Normal [facility] Comment on above: Performed By: #### F T4 #### [facility] [address] [place] [address] Dr. Karey Ordoñez HDL NORMAL > or = 60 mg/dl - LO W CARDIOVASCULAR RISK <40 mg/dl - HIGH CARDIOVASCULAR RISK Normal [facility] Comment on above: Performed By: #### F T4 #### [facility] [address] [address] [address] Karey Ordoñez LDL CALC NORMAL SEE BELOW Normal [facility] Comment on above: Result Comment: <100 mg/dl OPTIMAL 100 - 129 mg/dl NEAR OR ABOVE OPTIMAL 130 - 159 mg/dl BORDERLINE HIGH 160 - 189 mg/dl HIGH >190 mg/dl VERY HIGH Performed By: #### F T4 #### [facility] [address] [address] [address] Karey Ordoñez Triglyceride [Mass/Vol] 71 mg/dL Normal <=[address] [facility] Comment on above: Performed By: #### F T4 #### [facility] [address] [address] [address] Karey Ordoñez VLDL CALC 14.2 mg/dL Normal [facility] Comment on above: Performed By: #### F T4 #### [facility] [address] [address] [address] Karey Ordoñez PROF 14(COMP METB)on 05-24-2 022 Albumin [Mass/Vol] 3.9 g/dL Normal 3.4-5.0 [facility] Comment on above: Performed By: #### F T4 #### [facility] [address] [place] [address] Dr. Karey Ordoñez Albumin/Globulin [Mass ratio] 0.9 {ratio} Normal [facility] Comment on above: Performed By: #### F T4 #### [facility] [address] [place] [address] Dr. Karey Ordoñez ALP [Catalytic activity/Vol] 117 U/L Critically high 46-116 [facility] Comment on above: Performed By: #### F T4 #### [facility] [address] [place] [address] Dr. Karey Ordoñez ALT [Catalytic activity/Vol] 25 U/L Normal 14-59 [facility] Comment on above: Performed By: #### F T4 #### [facility] [address] [place] [address] Dr. Karey Ordoñez Anion gap [Moles/Vol] 14.1 mmol/L Normal [facility] Comment on above: Performed By: #### F T4 #### [facility] [address] [place] [address] Dr. Karey Ordoñez AST [Catalytic activity/Vol] 14 U/L Critically low 15-37 [facility] Comment on above: Performed By: #### F T4 #### [facility] [address] [place] [address] Dr. Karey Ordoñez Bilirubin [Mass/Vol] 0.5 mg/dL Normal 0.2-1.0 [facility] [facility] Comment on above: Performed By: #### F T4 #### [facility] [address] [place] [address] Dr. Karey Ordoñez Calcium [Mass/Vol] 9.1 mg/dL Normal 8.5-10.1 [facility] Comment on above: Performed By: #### F T4 #### [facility] [address] [place] [address] Dr. Karey Ordoñez Chloride [Moles/Vol] 102 mmol/L Normal 98-107 [facility] Comment on above: Performed By: #### F T4 #### [facility] [address] [address] [address] Karey Ordoñez CO2 [Moles/Vol] 27.7 mmol/L Normal 21.0-32.0 [facility] Comment on above: Performed By: #### F T4 #### [facility] [address] [address] [address] Karey Ordoñez Creatinine [Mass/Vol] 0.76 mg/dL Normal 0.55-1.02 [facility] Comment on above: Performed By: #### F T4 #### [facility] [address] [address] [address] Karey Ordoñez EGFR-AF AFGHAN >60 Normal >=60 [facility] Comment on above: Performed By: #### F T4 #### [facility] [address] [place] [address] Dr. Karey Ordoñez EGFR-NON AF AFGHAN >60 Normal >=60 [facility] Comment on above: Performed By: #### F T4 #### [facility] [address] [place] [address] Dr. Karey Ordoñez Globulin (S) [Mass/Vol] 4.5 g/dL Normal [facility] Comment on above: Performed By: #### F T4 #### [facility] [address] [place] [address] Dr. Karey Ordoñez Glucose [Mass/Vol] 101 mg/dL Normal 74-106 [facility] Comment on above: Performed By: #### F T4 #### [facility] [address] [place] [address] Dr. Karey Ordoñez Potassium [Moles/Vol] 3.8 mmol/L Normal 3.5-5.1 [facility] Comment on above: Performed By: #### F T4 #### [facility] [address] [place] [address] Dr. Karey Ordoñez Protein [Mass/Vol] 8.4 g/dL Critically high 6.4-8.2 [facility] Comment on above: Performed By: #### F T4 #### [facility] [address] [address] [address] Karey Ordoñez Sodium [Moles/Vol] 140 mmol/L Normal 136-145 [facility] Comment on above: Performed By: #### F T4 #### [facility] [id number] Karey Ordoñez Urea nitrogen [Mass/Vol] 10.0 mg/dL Normal 7.0-18.0 [facility] Comment on above: Performed By: #### F T4 #### [facility] [address] [address] [address] Karey Ordoñez Urea nitrogen/Creatinine [Mass ratio] 13.2 mg/mg Normal [facility] Comment on above: Performed By: #### F T4 #### [facility] [address] [address] [address] Karey Ordoñez TSHon 10-01-2021 TSH 2.445 uIU/mL Normal 0.358-3.740 [facility] Comment on above: Performed By: #### F T4 #### [facility] [address] [address] [address] Karey Ordoñez TSH RANGE SEE BELOW Normal [facility] Comment on above: Result Comment: <0.3 4 UIU/ml HYPERTHYROID 0.34-5.60 UIU/ml EUTHYROID >5.60 UIU/ml HYPOTHYROID Performed By: #### F T4 #### [facility] [address] [address] [address] Karey Ordoñez Social History Date Type Detail Facility Start: 04-14-2023 Alcohol intake Ex-drinker (finding) [facility] Start: 02-13-2023 End: 02-17-2023 No alcohol use No alcohol use [facility] Comment on above: 1-2 cups coffee brian y; Start: 07-29-2021 End: 02-17-2023 Tobacco smoking status NHIS Never smoked tobacco [facility] Start: 07-29-2021 End: 02-17-2023 Tobacco use and exposure Smokeless tobacco non-user [facility] Start: 02-13-2023 End: 02-17-2023 Tobacco use panel [facility] Start: 1985 Sex Assigned At Not on file C [facility] Adult Depression Screening Assessment 0 [facility] Vital Signs Date Time Vital Sign Value Performing Clinician Nolvia hurtado 02-17-2023 08:48-0400 Body weight 126.55 kg Alberto Marcus MD Work Phone: [facility] 02-17-2023 08:48-0400 Diastolic blood pressure 82 mm[Hg] Alberto Marcus MD Work Phone: [facility] 02-17-2023 08:48-0400 Heart rate 96 /min Alberto Marcus MD Work Phone: [facility] 02-17-2023 08:48-0400 SaO2% (BldA) [Mass fraction] 98 % Alberto Marcus MD Work Phone: [facility] 02-17-2023 08:48-0400 Systolic blood pressure 116 mm[Hg] Alberto Marcus MD Work Phone: [facility] 06-30-2022 09:45-0500 Body height 160.02 cm Allison Mendez Work Phone: [facility] DO Work Phone: 06-30-2022 09:45-0500 Body mass index (BMI) [Ratio] 49.42 kg/m2 Allison Mendez Work Phone: [facility] DO Work Phone: 06-30-2022 09:45-0500 Body surface area Derived from formula 2.23 m2 Allison Mendez Work Phone: [facility] DO Work Phone: 06-30-2022 09:45-0500 Body weight 126.55 kg Allison Mendez Work Phone: [facility] DO Work Phone: 02-20-2023 09:45-0500 Diastolic blood pressure 80 mm[Hg] Allison Mcclurehollorri Work Phone: [facility] DO Work Phone: 06-30-2022 09:45-0500 Heart rate 74 /min Allison Bullock Aicmichelleholz Work Phone: [facility] DO Work Phone: 06-30-2022 09:45-0500 Systolic blood pressure 128 mm[Hg] Allison Bullock Aicmichellehollorri Work Phone: [facility] DO Work Phone: Progress note 08-31-2023 Note Date & Type Note Facility 08-31-2023 Note HNO ID: [id number] Author: DINO SELLERS LGC Service: ? Author [...] to her home address. Dino Sellers MS, [facility] Licensed Genetic Counselor [facility] History of Present illness Narrative 08-31-2023 Dino [...] to her home address. Dino Sellers MS, [facility] Licensed Genetic Counselor documented in this encounter [facility] Progress note 10-10-2023 Note Date & Type Note Facility 02-17-2023 Note HNO ID: [id number] Author: Alberto Marcus MD Service: ? Author Type: Physician Type: Progress Notes Filed: 02/17/2023 10:02 AM Note Text: Rheumatology Clinic Date of Service: 02/17/2023 Patient: Denisha Velasco Medical Record: [id number] Last Rheumatology visit: None at [facility] History of Present Illness Denisha [...] each day a (more content not included)... [facility] Instructions 02-17-2023 Patient Instructions Note Date & [...] from the [facility] in [place] suggested that concomitant fibromyalgia is common in patients with inflammatory arthritis, which can have a major impact on assessing disease severity and treatment decisions. The overall prevalence of fibromyalgia was 21% among patients with rheumatoid arthritis and 13% in ankylosing spondylitis, whereas the condition is reported in approximately 1% to 5% of the general population, according to Wyatt Luke, [facility], PhD, of the [facility] in [place], and colleagues. The cornerstones [...] guidelines of fibromyalgia: (1) https://www.rheumatology.org/I-Am-A/Patient- Caregiver/Diseases-Conditions/Fibromyalgia (2) http://fibroguide.med.[facility]/ documented in this encounter [facility] History of Present illness Narrative 02-17-2023 Alberto Marcus MD - 02/17/2023 8:49 AM EDT Note Date & Type Note Facility 02-17-2023 History of Presen t illness Narrative Images from the original note were not included. Rheumatology Clinic Date of Service: 02/17/2023 Patient: Denisha Velasco Medical Record: [id number] Last Rheumatology visit: None at [facility] History of Present Illness Denisha [...] which included preparing to see the patient, [id number] patient care, completing clinical documentation, obtaining and/or reviewing separately obtained history, performing a medically appropriate examination, and counseling and educating the patient/family/caregiver. Alberto Marcus MD Rheumatology Date: February 17, 2023 Time: 8:50 AM documented in this encounter [facility] Evaluation note Note Date & Type Note Facility Evaluation note Diagnosis Fibromyalgia- Primary Mylagia and myositis, unspecified Sedimentation rate elevation Elevated sedimentation rate Fatigue, unspecified type Vitamin D deficiency Unspecified vitamin D deficiency documented in this encounter [facility] Evaluation note Note Date & Type Note Facility Evaluation note Diagnosis Elevated partial thromboplastin time (PTT)- Primary Abnormal coagulation profile documented in this encounter [facility] Evaluation note Note Date & Type Note Facility Evaluation note Diagnosis Family history of autism- Primary Family history of psychiatric condition documented in this encounter [facility] History of Present illness Narrative [...] doing it at her young age. -[facility] DO Work Phone: Instructions Note Date & Type Note Facility Instructions Not on filedocumented in this en counter [facility] Summary Purpose Family History No Family [...] section and content) DATE CREATED AUTHOR 06/30/2022 [facility] DATE CREATED AUTHOR AUTHOR'S ORGANIZ ATION 07/01/2022 [employer] DATE CREATED AUTHOR AUTHOR'S ORGANIZ ATION 07/08/2022 [facility] DATE CREATED AUTHOR AUTHOR'S ORGANIZ ATION 08/01/2023 [facility] DATE CREATED AUTHOR AUTHOR'S ORGANIZ ATION 08/31/2023 [facility] DATE CREATED AUTHOR AUTHOR'S ORGANIZ ATION 10/14/2023 [facility] DATE CREATED AUTHOR AUTHOR'S ORGANIZ ATION 11/04/2023 [facility] Source Comments (unrecognize d section and content) In the event this informatio n is protected by the Federal Confidentiality of Alcohol and Drug Abuse Patient Records regulations: The Federal rules restrict any use of the information to criminally investigate or prosecute any alcohol or drug abuse patient.[facility] the event this information is protected by the Federal Confidentiality of Alcohol and Drug Abuse Patient Records regulations: The Federal rules restrict any use of the information to criminally investigate or prosecute any alcohol or drug abuse patient.[facility] Reason for Visit (unrecogniz ed section and content) Reason Comments Consult Reason Comments Genetics- parental testing Care Teams (unrecognized sec tion and content) Body And Frame Technician Relationship Specialty Start Date End Date Allison Mendez, RESEARCH CHEMIST-TUYERE FITTER [address] [place] [address] PCP - General Nurse Practitioner 04/14/23 FOR [...] BE BASED ON THE PRIMARY CLINICAL RECORDS. [employer] [facility]. provides no warranty or guarantee of the accuracy or completeness of information in this document.
[2023-12-07 09:20] VITALS: BP 145/83; PULSE 84; TEMP 36.6; O2SAT 100
[2023-12-07 09:25] LABS: Glucometer 101 mg/dL (74-106)
[2023-12-07 10:05] VITALS: BP 139/67; PULSE 68; O2SAT 98
[2023-12-07 10:10] VITALS: BP 141/73; PULSE 70; O2SAT 98
[2023-12-07] MEDS: BUPIVACAINE HCL 0.25% PF 25 MG/10 ML VIAL 4 ML INJ (10:12)
[2023-12-07] MEDS: TRIAMCINOLONE ACETONIDE 40 MG/ML VIAL 80 MG INJ (10:13)
[2023-12-07] MEDS: LIDOCAINE HCL 2% 400 MG/20 ML MDV 16 ML INJ (10:13)
--- NOTE | 2023-12-07 10:24 | P.ON_ITS ---
Date of procedure: 12/07/23 Pre-op diagnosis: Pain due to lumbar spondylosis without myelopathy Post-op diagnosis: same as pre-op Procedure: Procedure: Bilateral L4-5, l5-S1 radiofrequency ablation Medications: Bupivacaine 0.25% 6cc, lidocaine 2% 5cc, kenalog 80mg Written informed consent was obtained and placed on the chart.? The patient was brought to the medical procedure unit and placed in the prone position.? A timeout was completed verifying correct patient, procedure, positioning, and special requirements.? The skin overlying the target points, the designated medial branch, were prepped and draped in the usual sterile fashion.? The target point was achieved with a 20-gauge 15 cm with a 10 mm curved active tip radiofrequency cannula under direct fluoroscopic visualization.? The needle was inserted at level L4 on the right side. Needle tip position was confirmed with lateral fluoroscopic position.? Motor stimulation was carried out at 2 Hz up to 5 volts with the absence of extremity activity.? This was repeated at level on right side.?? Sensory stimulation was carried out.? Concordant pain was realized at the above- mentioned sites.? Then radiofrequency lesioning was carried out times 90 seconds at 80 degrees times 2 lesions at each level.? The radiofrequency probe was removed prior to cannula removal.? The above-mentioned injectate was placed in 1 mL increments.? The needle was removed. The same procedure, with the same steps, was then completed on the left side at the same levels. Insertion sites were covered.? The patient was taken to the postoperative recovery area and monitored for an appropriate length of time before being found suitable for discharge in the company of a responsible adult. Anesthesia: Local Surgeon: Patrick Parks Pathology: none sent Condition: stable Disposition: no change
== END 2023-12-07 10:25 | disposition home or self-care (01) ==
LOC: SURGOUT 08:45
PROVIDERS: PCP Nurse Practitioner; Visit Provider Anesthesiology
DX: M47.816 Spondylosis without myelopathy or radiculopathy, lumbar region (principal)
CPT/HCPCS: 36415; 64635; 64636; 82948; J0665; J3301

== ENCOUNTER 2024-01-06 09:59 | Outpatient (OUT) | payer OTHER, SELFPAY ==
--- NOTE | 2024-01-06 10:29 | PM.CN ---
Consult Note: HPI Data of Consult Patient: known to practice within the last 3 years Consult date: 09/07/23 Requesting Physician: Kadi Amador NP Primary Care Provider: Allison Mendez NP Consult Narrative Reason for consult: midback, low back pain Narrative: 37yof who presents for evaluation. longstanding mid and low back history, primarily began after childbirth several years ago. imaging reviewed, which shows multilevel degeneration in facet in lower lumbar spine. has tried various medications, including muscle relaxers, NSAIDs, percocet, prednisone, all without last benefit. has completed physical therapy and continues in the provider directed home exercise course >6 weeks, which has not provided lasting benefit. otherwise denies adverse med side effects or loss of bowel or bladder control. Recently underwent bilateral L4-5 L5-S1 facet medial branch RFA with increased pain since the procedure. Pain 4/10 at this time increasing to 8/10 with standing, walking, lifting, twisting, showering, and lying flat. Patient has noticed increase in tingling of left leg and pain shooting into left foot, intermittent heaviness and weakness of LLE. cc:: CC: Kadi Amador NP Review of Systems ROS Status of ROS 10 or more systems reviewed and unremarkable except as noted in history and below Musculoskeletal Reports: back pain and extremity pain PFSH [facility] Medical History (Updated 01/06/24 @ 10:32 by Kadi Amador NP) Vertigo ?R42 - Dizziness and giddiness (ICD-10) Anxiety ?F41.9 - Anxiety disorder, unspecified (ICD-10) Diabetes ?E11.9 - Type 2 diabetes mellitus without complications (ICD-10) Sleep apnea ?G47.30 - Sleep apnea, unspecified (ICD-10) Asthma ?J45.909 - Unspecified asthma, uncomplicated (ICD-10) Irregular heart beat ?I49.9 - Cardiac arrhythmia, unspecified (ICD-10) Heart murmur ?R01.1 - Cardiac murmur, unspecified (ICD-10) High blood pressure ?I10 - Essential (primary) hypertension (ICD-10) Surgical History History of hysterectomy ?Z90.710 - Acquired absence of both cervix and uterus (ICD-10) History of section ?Z98.891 - History of uterine scar from previous surgery (ICD-10) History of arthroscopy of right knee ?Z98.890 - Other specified postprocedural states (ICD-10) Social History Smoking status: Never smoker Meds Home Medications and Allergies Home Medications ?Medication ?Instructions ?Recorded ?Confirmed ?Type aspirin 81 mg tablet,delayed 81 mg PO DAILY 03/31/23 12/07/23 History release (Adult Low Dose Aspirin) atorvastatin 10 mg tablet 10 mg PO DAILY 03/31/23 12/07/23 History buspirone 10 mg tablet 10 mg PO BID 03/31/23 12/07/23 History levothyroxine 137 mcg tablet 150 mcg PO DAILY 03/31/23 12/07/23 History losartan 50 mg tablet 50 mg PO DAILY 03/31/23 12/07/23 History metformin 500 mg tablet 500 mg PO DAILY 03/31/23 12/07/23 History sertraline 100 mg tablet 100 mg PO BEDTIME 03/31/23 12/07/23 History verapamil 180 mg 24 hr 180 mg PO DAILY 03/31/23 12/07/23 History capsule,extended release VICTOZA 1.8 mg DAILY 09/07/23 History cholecalciferol (vitamin D3) 125 125 mcg PO DAILY 10/12/23 12/07/23 History mcg (5,000 unit) tablet acetaminophen 650 mg 650 mg PO Q12H PRN pain 10/15/23 12/07/23 History tablet,extended release diclofenac sodium 1 % topical gel 2 g topical QID 10/15/23 12/07/23 History magnesium 500 mg tablet 500 mg PO BID 10/15/23 12/07/23 History meclizine 25 mg tablet 12.5 mg PO BID PRN dizziness 10/15/23 12/07/23 History mecobalamin (vitamin B12) 1,000 1,000 mcg PO DAILY 10/15/23 11/02/23 History mcg chewable tablet triamcinolone acetonide 55 mcg 1 spray intranasal DAILY 10/15/23 12/07/23 History nasal spray aerosol (Nasacort) acetaminophen 650 mg 650 mg PO Q8H PRN pain #20 tabs 12/01/23 12/07/23 Rx tablet,extended release (Tylenol 8 Hour) orphenadrine citrate 100 mg 100 mg PO BID PRN muscle spasm #10 12/01/23 12/07/23 Rx tablet,extended release tabs prednisone 20 mg tablet 40 mg (2 x 20 mg) PO DAILY 5 days 12/01/23 12/07/23 Rx #10 tabs Allergies Allergy/AdvReac Type Severity Reaction Status Date / Time hydrochlorothiazide Allergy Severe Fever Verified 12/01/23 09:48 celecoxib [From Celebrex] Allergy Unknown Chest Pain Verified 12/01/23 09:48 gabapentin AdvReac Severe Confusion Verified 12/01/23 09:48 Exam Constitutional Documenting provider has reviewed patient's vital signs: yes Common normals: no apparent distress, oriented x3, healthy appearing, alert and well nourished General appearance: cooperative HENMT Common normals: normocephalic, hearing grossly normal bilaterally and moist oral mucous membranes Head and scalp: normocephalic Eye Common normals: PERRL Pupil: PERRL Neck & C-Spine Common normals: full ROM General: normal visual inspection Chest Common normals: inspection of chest normal Respiratory Common normals: normal respiratory effort, no retractions and no use of accessory muscles Back & Pelvis Lumbar spine/lower back: pain with ROM, paraspinal muscle tenderness and straight leg raise positive left Other: strength 5/5 on exam, reports intermittent heaviness and weakness of LLE at this time sensation intact to BLE, patient noting radicular pain intermittently following left L4,5,S1 pattern, positive left straight leg raise Extremity Common normals: normal to inspection and full ROM Neuro Common normals: oriented x3, CN's II-XII intact bilaterally, moves all extremities, no focal motor deficits, no sensory deficits noted, deep tendon reflexes 2+ bilaterally and gait normal Sensorium/orientation: alert Motor exam: strength 5/5 throughout and no movement abnormalities noted Psych Common normals: mental status grossly normal, thought process normal, cooperative, affect normal, speech normal and activity/motor behavior normal Speech: normal speech Thought process: normal thought process Results Additional Findings Additional findings: If on a controlled substance or opioids, I have checked an [place]AR[place] report on this patient and there are no aberrancies noted in the prescribing history.??If on a controlled substance or opioid a drug screen was completed and reviewed within the last year, and if there has not been a drug screen completed we ordered one today to monitor higher risk, state monitored pain medication use. As part of providing excellent, safe, comprehensive care, the following was completed at our patient's visit: 1. A medication reconciliation and review to ensure accurate knowledge of current/active medications, including asking our patients to inform us about any [id number] medications or herbal remedies/nutritional supplements/alternative remedies. 2. A review to specifically ensure our patients have had annual screening for screening for depression, screening for tobacco use, and screening for unhealthy alcohol use. For concerning screenings had a discussion with the patient, provided patient education, and recommended follow-up with primary care provider when appropriate. If patient noted with a risk of falling, they received education on strength, gait, and balance training to prevent future risk of falling. Assessment and Plan Assessment and Plan (1) Lumbar spondylosis: (2) Myofascial pain: (3) Lumbar radiculopathy: (4) Chronic bilateral low back pain: Plan at this time with post RFA increased pain and radiculopathy i am starting the patient on a medrol dose pack, baclofen 10mg TID PRN pain/spasms, and recommending OTC lidocaine patches 12hrs on 12 hrs off for chronic bilateral low back pain unresponsive to PT greater than 6 weeks, medications as noted above, and bilateral L4-5 L5-S1 RFA I would like a lumbar MRI without contrast to further evaluate lumbar DDD and formulate injection/interventional care plan vs NS referral. f/u to review lumbar MRI
== END 2024-01-06 10:00 | disposition home or self-care (01) ==
LOC: PM 09:59
PROVIDERS: PCP Nurse Practitioner; Visit Provider Nurse Practitioner
DX: M47.816 Spondylosis without myelopathy or radiculopathy, lumbar region (principal); M79.18 Myalgia, other site; M54.16 Radiculopathy, lumbar region; M54.50 Low back pain, unspecified
CPT/HCPCS: G0463

== ENCOUNTER 2024-03-09 10:22 | Outpatient (OUT) | payer OTHER, SELFPAY ==
--- NOTE | 2024-03-09 10:36 | XR_ITS ---
The [address] [address] Patient Name: DENISHA MALDONADO MRN: [id number] date: 1985 Sex: F Assigned Patient Location: [facility] Current Patient Location: Accession/Order Number: [id number] Exam Date: 03/09/2024 10:40 Report Date: 03/10/2024 07:30 At the request of: JULIANA BUTCHER Procedure: XR knee LAWRENCE 3V EXAMINATION: XR knee LAWRENCE 3V HISTORY: Bilateral Knee Arthritis COMPARISON: No relevant comparison available. FINDINGS: RIGHT FINDINGS: BONES: No acute fracture or dislocation. Mild degenerative changes with marginal osteophyte formation SOFT TISSUES: Negative. No visible soft tissue swelling. OTHER: Negative. LEFT FINDINGS: BONES: No acute fracture or dislocation. Mild degenerative changes with marginal osteophyte formation SOFT TISSUES: Negative. No visible soft tissue swelling. OTHER: Negative. XR/XR knee LAWRENCE 3V IMPRESSION: Mild bilateral osteoarthritis Electronically authenticated by: VERO ATKINS Date: 03/10/2024 07:30
[2024-03-09 11:08] LABS: Estimated Average Glucose 108 mg/dL; Glycohemoglobin A1C 5.4 % (4.5-6.2)
[2024-03-09 12:39] LABS: Alanine Aminotransferase 15 U/L (14-59); Albumin Globulin Ratio 0.9; Albumin Level 3.6 g/dL (3.4-5.0); Alkaline Phosphatase 139 U/L (46-116); Anion Gap 14.4; Aspartate Amino Transferase 12 U/L (15-37); BUN Creatinine Ratio 9.6; Bilirubin Total 0.5 mg/dL (0.2-1.0); Calcium 10.1 mg/dL (8.5-10.1); Carbon Dioxide 27.1 mmol/L (21.0-32.0); Chloride 104 mmol/L (98-107); Estimated GFR (African America >60 (>=60 mL/min/1.73m^2); Estimated GFR (Non-African Ame >60 (>=60 mL/min/1.73m^2); Globulin 4.1 g/dL; Glucose 92 mg/dL (74-106); Potassium 4.5 mmol/L (3.5-5.1); Sodium 141 mmol/L (136-145); Total Protein 7.7 g/dL (6.4-8.2)
== END 2024-03-09 10:23 | disposition home or self-care (01) ==
LOC: RAD 10:24
PROVIDERS: PCP Nurse Practitioner; Visit Provider Nurse Practitioner
DX: M17.0 Bilateral primary osteoarthritis of knee (principal); I10 Essential (primary) hypertension; E11.9 Type 2 diabetes mellitus without complications
CPT/HCPCS: 36415; 73562; 80053; 83036

== ENCOUNTER 2024-03-22 12:50 | Outpatient (OUT) | payer OTHER, SELFPAY ==
--- NOTE | 2024-03-22 12:52 | MM_ITS ---
Patient Name: DENISHA MALDONADO MR#: [id number] : 1985 Exam Date: 03/22/2024 Ordering Doctor: LAURO Mendez CNP RADIOLOGY REPORT PROCEDURE: MM TOMOSYNTHESIS SCREENING BI COMPARISON: None. INDICATIONS: Screening Calculator Name NCI Breast Cancer Risk Assessment Tool 5 Year Breast Cancer Risk 0.50% Lifetime Breast Cancer Risk 9.90% Personal Breast Cancer No Personal Ovarian Cancer No Treatments None Family Cancers Grandmother-paternal with breast cancer at age ~60. LOCATION: [facility] BREAST COMPOSITION: There are scattered areas of fibroglandular density. FINDINGS: DIAGNOSTIC CATEGORY 1--NEGATIVE. Scattered benign-appearing calcifications are present. Scattered benign-appearing lymph nodes are present. RIGHT BREAST: No significant suspicious finding. LEFT BREAST: No significant suspicious finding. RECOMMENDATIONS: ROUTINE MAMMOGRAM AND CLINICAL EVALUATION IN 12 MONTHS. PLEASE NOTE: A NORMAL MAMMOGRAM DOES NOT EXCLUDE THE POSSIBILITY OF BREAST CANCER. A CLINICALLY SUSPICIOUS PALPABLE LUMP SHOULD BE BIOPSIED. Dictated by: Gonzalez Osman MD on 03/22/2024 at 14:41 Approved by: Gonzalez Osman MD on 03/22/2024 at 14:42
== END 2024-03-22 12:51 | disposition home or self-care (01) ==
LOC: MAMMO 12:51
PROVIDERS: PCP Nurse Practitioner; Visit Provider Nurse Practitioner
DX: Z12.31 Encounter for screening mammogram for malignant neoplasm of breast (principal); Z80.3 Family history of malignant neoplasm of breast
CPT/HCPCS: 77063; 77067

== ENCOUNTER 2024-07-05 10:41 | Outpatient (OUT) | payer OTHER, SELFPAY ==
[2024-07-05 11:08] LABS: Basophils Percent Auto 0.2 % (0.2-2.0); Eosinophils Absolute Auto 0.1 10^3/uL (0.0-0.7); Eosinophils Percent Auto 1.4 % (0.9-7.0); Hematocrit 38.4 % (36.0-48.0); Hemoglobin 12.8 g/dL (12.0-16.0); Immature Granulocytes Abs Auto 0.03 10^3/uL (0.00-0.03); Immature Granulocytes Pct Auto 0.4 % (0.0-0.5); Lymphocytes Absolute Auto 2.7 10^3/uL (1.2-3.8); Lymphocytes Percent Auto 32.3 % (20.5-60.0); Mean Corpuscular HGB Conc 33.3 g/dL (29.9-35.2); Mean Corpuscular Hemoglobin 29.6 pg (26.7-34.0); Mean Corpuscular Volume 88.7 fL (81.0-99.0); Mean Platelet Volume 12.1 fL (9.5-13.5); Monocytes Absolute Auto 0.6 10^3/uL (0.3-0.8); Monocytes Percent Auto 7.5 % (1.7-12.0); Neutrophils Absolute Auto 4.9 10^3/uL (1.4-6.5); Neutrophils Percent Auto 58.2 % (43.0-75.0); Platelet Count 249 10^3/uL (150-450); Red Blood Count 4.33 10^6/uL (4.20-5.40); Red Cell Distribution Width 12.4 % (11.0-15.0); White Blood Count 8.4 10^3/uL (4.0-11.0)
[2024-07-05 12:01] LABS: Erythrocyte Sedimentation Rate 23 mm/hr (<=20)
[2024-07-05 12:10] LABS: Bilirubin Urine NEGATIVE (NEGATIVE); Blood Urine NEGATIVE (NEGATIVE); Clarity Urine CLEAR (CLEAR); Color Urine LT. YELLOW (YELLOW); Glucose Urine UA NEGATIVE (NEGATIVE); Ketones Urine NEGATIVE (NEGATIVE); Leukocyte Esterase Urine NEGATIVE (NEGATIVE); Nitrite Urine NEGATIVE (NEGATIVE); Protein Urine NEGATIVE (NEG/TRACE); Urobilinogen Urine 0.2 EU/dL (0.2-1.0)
[2024-07-05 12:14] LABS: Alanine Aminotransferase 49 U/L (14-59); Albumin Level 3.4 g/dL (3.4-5.0); Alkaline Phosphatase 108 U/L (46-116); Anion Gap 11.7; Aspartate Amino Transferase 28 U/L (15-37); Bilirubin Total 0.4 mg/dL (0.2-1.0); C Reactive Protein <0.50 mg/dL (<=0.50); Calcium 8.8 mg/dL (8.5-10.1); Carbon Dioxide 27.1 mmol/L (21.0-32.0); Chloride 106 mmol/L (98-107); Chol HDL Ratio 3.6; Cholesterol 152 mg/dL (<=200); Estimated GFR (African America >60 (>=60 mL/min/1.73m^2); Estimated GFR (Non-African Ame >60 (>=60 mL/min/1.73m^2); Globulin 3.5 g/dL; Glucose 86 mg/dL (74-106); HDL Cholesterol 42 mg/dL (40-60); Potassium 3.8 mmol/L (3.5-5.1); Sodium 141 mmol/L (136-145); Thyroid Stimulating Hormone 2.831 uIU/mL (0.358-3.740); Total Protein 6.9 g/dL (6.4-8.2); Triglycerides 125 mg/dL (<=150)
[2024-07-05 12:17] LABS: Urine Microscopic Indicated NO
[2024-07-05 12:45] LABS: Free T4 1.27 ng/dL (0.76-1.46)
[2024-07-05 13:08] LABS: Creatinine Urine Random 39.06 mg/dL (20.00-300.00); Microalbum Creatinine Ratio Ur 33.2 mg/g (0.0-29.9); Microalbumin Urine Random <1.3 mg/dL (<=30.0)
[2024-07-06 03:07] LABS: Vitamin B12 1041 pg/mL (232-1245)
== END 2024-07-05 10:42 | disposition home or self-care (01) ==
LOC: LAB 10:43
PROVIDERS: PCP Nurse Practitioner; Visit Provider Nurse Practitioner
DX: I10 Essential (primary) hypertension (principal); E03.9 Hypothyroidism, unspecified; E11.9 Type 2 diabetes mellitus without complications; E55.9 Vitamin D deficiency, unspecified; E78.2 Mixed hyperlipidemia; R26.2 Difficulty in walking, not elsewhere classified; R53.83 Other fatigue
CPT/HCPCS: 36415; 80053; 80061; 81003; 82043; 82306; 82570; 82607; 82728; 84439; 84443; 85025; 85652; 86140

== ENCOUNTER 2025-02-23 07:39 | Outpatient (OUT) | payer OTHER, SELFPAY ==
--- OUTSIDE RECORDS SUMMARY | 2024-10-05 05:45 | XMS_ITS ---
Author Organization [facility] Servic es Address [address] [place] [address] Care Team Providers Care Billposter Name Role Phone Giancarlo Froilan Primary Care Provider Danisha Peguero Unavailable [phone] REASON FOR VISIT FILLING Encounters Encounter Location Date Provider Diagnosis [facility] [address] [address] 10/05/2024 Danisha Albert Plan Of Treatment Next Appt Details Provider Name:Lluvia Sunitha, 03/13/2025 08:30:00 AM, [address], [place], [address], Provider Name:Danisha Albert, 03/15/2025 01:00:00 PM, [address] [place], [address], Provider Name:Danisha Albert, 07/07/2025 02:00:00 PM, [address] [place], [address], Provider Name:Danisha Albert, 07/19/2025 09:30:00 AM, [address] [place], [address], Provider Name:Danisha Albert, 07/20/2025 09:45:00 AM, [address] [place] [address], [address], Progress Notes * DENISHA MALDONADO LDOB:1985 (39 yo F)Acc No.[id number]:10/05/2024 Patient: DENISHA DELANEY Provider: Dariela ALBERT DDS :1985 A ge:38 Y S ex:Female Date:10/05/2024 [address] [id number] Pcp:Froilan Mondragon Subjective: * Chief Complaints: * F ILLING Billing Information: * Procedure Codes: * Electronic signature of Angelica Albert DDS on 02/23/2025 at 07:42 AM EDT Sign off status: Pending * Provider: Dariela ALBERT DDS Date: 0 10/05/2024 Generated for Greta diaz/Ilene/eTransmitting on: 1 07:42 AM EDT
--- OUTSIDE RECORDS SUMMARY | 2024-10-07 05:30 | XMS_ITS ---
Author Organization [facility] Servic es Address [address] [place] [address] Care Team Providers Care Head Sampler Name Role Phone Giancarlo Froilan Primary Care Provider Danisha Peguero Unavailable REASON FOR VISIT FILLING Encounters Encounter Location Date Provider Diagnosis [facility] Melani [address] [place] [address] 10/07/2024 Danisha Albert Plan Of Treatment Next Appt Details Provider Name:Lluvia Sunitha, 03/13/2025 08:30:00 AM, [address], [place], [address], Provider Name:Danisha Albert, 03/15/2025 01:00:00 PM, [address] [place], [address], Provider Name:Danisha Albert, 07/07/2025 02:00:00 PM, [address] [place], [address], Provider Name:Danisha Albert, 07/19/2025 09:30:00 AM, [address] [place], [address], Provider Name:Danisha Albert, 07/20/2025 09:45:00 AM, [address] [place] [address], [address], Progress Notes * DENISHA MALDONADO LDOB:1985 (39 yo F)Acc No.[id number]:10/07/2024 Patient: Brien BANGDENISHA CORTES Provider: Dariela ALBERT DDS :1985 A ge:38 Y S ex:Female Date:10/07/2024 [address] [id number] Pcp:Froilan Mondragon Subjective: * Chief Complaints: * F ILLING * Electronic signature of Angelica Albert DDS on 02/23/2025 at 07:41 AM EDT Sign off status: Pending * Provider: Dariela ALBERT DDS Date: 0 10/07/2024 Generated for Greta diaz/Ilene/eTshraddhasmitting on: 1 07:41 AM EDT
--- OUTSIDE RECORDS SUMMARY | 2025-02-15 06:20 | XMS_ITS ---
Author Organization [facility] Servic es Address [address] [place] [address] Care Team Providers Care Mold Maker Plaster Name Role Phone Rossydru Froilan Primary Care Provider Danisha Peguero Unavailable [phone] REASON FOR VISIT FILLING Encounters Encounter Location Date Provider Diagnosis [facility] Melani [address] [facility] [place] [address] 02/15/2025 Danisha Albert Plan Of Treatment Next Appt Details Provider Name:Lluvia Sunitha, 03/13/2025 08:30:00 AM, [address], [place], [address], Provider Name:Danisha Albert, 03/15/2025 01:00:00 PM, [address] [place], [address], Provider Name:Danisha Albert, 07/07/2025 02:00:00 PM, [address] [place], [address], Provider Name:Danisha Albert, 07/19/2025 09:30:00 AM, [address] [place], [address], Provider Name:Danisha Albert, 07/20/2025 09:45:00 AM, [address] [place] [address], [address], Progress Notes * DENISHA MALDONADO LDOB:1985 (39 yo F)Acc No.[id number]:02/15/2025 Patient: Brien BANGDENISHA CORTES Provider: Dariela ALBERT DDS :1985 A ge:39 Y S ex:Female Date:02/15/2025 [address] [facility] Pcp:Froilan Mondragon Subjective: * Chief Complaints: * F ILLING * Electronic signature of Angelica Albert DDS on 02/23/2025 at 07:41 AM EDT Sign off status: Pending * Provider: Dariela ALBERT DDS Date: Generated for Greta diaz/Ilene/eTajitting on: 07:41 AM EDT
--- OUTSIDE RECORDS SUMMARY | 2025-02-16 08:44 | XMS_ITS | Encounter Summary ---
Author Organization [facility] [facility] Address [id number] [address] [place] [address] Care Team Providers Care Solid Waste Technician Name Role Phone Allison Mendez APRN-GAS MAKER HELPER Primary Care Provider Reason for Referral * Neurology (Routine) - Pending Review Specialty Diagnoses / Procedures Referred By Contac t Referred To Contact Diagnoses Dizziness Paresthesias Procedures Rotary Chair Evaluation (Neurology) Lauro Osuna PA-C [address], [address] [place] [address] Phone: tel: fax: Referral ID Status Reason Start Date Expiration Date V isits Requested Visits Authorized [id number] Pending Review 01/20/2025 01/20/2026 1 1 Reason for Visit * Neurology (Routine) - Pending Review Specialty Diagnoses / Procedures Referred By Contac t Referred To Contact Diagnoses Dizziness Paresthesias Procedures Rotary Chair Evaluation (Neurology) Lauro Osuna PA-C [address], [address] [place] [address] Phone: tel: fax: Referral ID Status Reason Start Date Expiration Date V isits Requested Visits Authorized [id number] Pending Review 01/20/2025 01/20/2026 1 1 Encounter Details Date Type Department Care Team (Latest Contact Info) Description 02/16/2025 8:44 AM EDT - 02/16/2025 11:59 PM EDT Hospital Encounter [facility] [place] - Neurophysiology [address] [facility] [address] [place] [address] Dizziness; Paresthesias Discharge Disposition: Home Social History Tobacco Use Types Packs/Day Years Used Date Smoking Tobacco: Never Smokeless Tobacco: Never Alcohol Use Standard Drinks/Week Comments Not Currently 0 (1 standard drink = 0.6 oz pur e alcohol) PHQ-2 Answer Date Recorded Total Score 0 01/20/2025 Hunger Screening Answer Date Recorded Within the past 12 months we worried whether our food would run out before we got money to buy more. Never True 01/20/2025 Within the past 12 months th e food we bought just didn't last and we didn't have money to get more. Never True 01/20/2025 Comments No Sex and Gender Information Value Date Recorded Sex Assigned at Not on file Legal Sex Female 10:19 AM EST Gender Identity Not on file Sexual Orientation Not on file Occupation Industry Job Start Date Job End Date Not on file Not on file Not on file Not on file documented as of this encounter Medications at Time of Discharge albuterol (PROVENTIL HFA;VENTOLIN HFA) 90 mcg/actuation inhaler Inhale 2 puffs every 6 (six) hours as needed. 09/29/2024 aspirin 81 mg capsule Take 81 mg by mouth in the morning. atorvastatin (LIPITOR) 10 mg tablet Take 1 tablet (10 mg total) by mouth in the morning. baclofen (LIORESAL) 10 mg tablet Take 1 tablet (10 mg total) by mouth Three times daily as needed. 01/31/2024 busPIRone (BUSPAR) 10 mg tablet Take 1 tablet (10 mg total) by mouth in the morning and at bedtime. carvediloL (COREG) 3.125 mg tablet Take 1 tablet (3.125 mg total) by mouth in the morning and 1 tablet (3.125 mg total) in the evening. Take with meals. 12/21/2024 cholecalciferol, vitamin D3, 2,000 units capsule Take 1 capsule (2,000 Units total) by mouth in the morning. 07/25/2024 cyanocobalamin 1000 MCG tablet Take 1 tablet (1,000 mcg total) by mouth in the morning. cyclobenzaprine (FLEXERIL) 10 mg tablet Take 1 tablet (10 mg total) by mouth daily as needed. 06/10/2021 diclofenac sodium (VOLTAREN) 1 % gel Apply 4 g topically in the morning and 4 g at noon and 4 g in the evening and 4 g before bedtime. doxepin (SINEquan) 10 mg capsule Take 1-2 capsules (10-20 mg total) by mouth nightly. 11/21/2022 FLUoxetine (PROzac) 20 mg capsule Take 1 capsule (20 mg total) by mouth in the morning. 12/21/2024 ibuprofen (MOTRIN) 800 mg tablet Take 1 tablet (800 mg total) by mouth every 8 (eight) hours as needed. levothyroxine (SYNTHROID, LEVOTHROID) 150 MCG tablet Take 1 tablet (150 mcg total) by mouth in the morning. losartan (COZAAR) 25 mg tablet Take 1 tablet (25 mg total) by mouth in the morning. 07/09/2021 losartan (COZAAR) 50 mg tablet Take 2 tablets (100 mg total) by mouth in the morning. magnesium gluconate (MAGONATE) 500 mg tablet tablet Take 1 tablet (500 mg total) by mouth in the morning and at bedtime. meclizine (ANTIVERT) 25 mg tablet Take 0.5 tablets (12.5 mg total) by mouth as needed in the morning and 0.5 tablets (12.5 mg total) as needed in the evening for dizziness. metFORMIN (GLUCOPHAGE) 500 mg tablet Take 2 tablets (1,000 mg total) by mouth in the morning. 07/03/2021 riboflavin, vitamin B2, 100 mg tablet Take 2 tablets (200 mg total) by mouth in the morning and 2 tablets (200 mg total) before bedtime. sertraline (ZOLOFT) 100 mg tablet Take 1 tablet (100 mg total) by mouth in the morning. 03/31/2023 TURMERIC ORAL Take 500 mg by mouth in the morning and at bedtime. verapamiL (VERELAN) 180 mg 24 hr capsule Take 1 capsule (180 mg total) by mouth in the morning. 07/09/2021 documented as of this encounter Plan of Treatment Upcoming Encounters Date Type Department Care Team (Late st Contact Info) Description 04/25/2025 10:00 AM EST Office Visit [facility] [place] [address] [place] [address] Lauro Osuna PA-C [address], [address] [place] [address] documented as of this encounter Procedures Procedure Name Priority Date/Time Associated Diagnosis Comments ROTARY CHAIR EVALUATION (NEUROLOGY) Routine 02/16/2025 9:30 AM EDT Dizziness Paresthesias documented in this encounter Results * Rotary Chair Evaluation (Neurology) (02/16/2025 9:30 AM EDT) Narrative MANUALLY TRANSCRIBED RESULTS - 02/16/2025 9:16 PM EDT Rotary Chair Tests Name: Gemma Velasco Age: 39 y.o. Gender: female : 1985 Referred by: Lauro Osuna PA-C (Neurology) Service Date: 02/16/2025 HISTORY: Gemma Velasco is a 39 y.o. right-handed female with vertigo, gait disturbance, earache, imbalance, and headaches. The study is to assist clinical diagnosis and management. CURRENT MEDICATIONS: Medications continued: Albuterol, carvedilol, Synthroid, Lipitor, losartan, metformin, verapamil, Voltaren Medications on-hold for >= 48 hours: Aspirin, baclofen, BuSpar, Flexeril, meclizine, Prozac, ibuprofen EQUIPMETS: [employer] System 2000 Rotational Chair TECH'S NOTE: Cooperative RESULTS: A. NYSTAGMUS TESTS Deferred B. OCULOMOTORT TESTS Deferred C. VOR TESTING - VOR (0.01, 0.02, 0.04, 0.08, 0.16, 0.32, 0.64 Hz): Gain: Normal Symmetry: Normal except 23-25% weaker at 0.16 and 0.32 Hz during CW rotation Phase: Normal - VOR with fixation (VFX)(0.04 Hz): Gain: Normal Symmetry: Normal Phase: Normal - Vision-enhanced VOR (VVOR)(0.16 Hz): Gain: 1.15 Symmetry: Normal Phase: Normal - Rotational Velocity Steps (RVS)(200 d/s CW and CCW): Gain: Normal Symmetry: Normal Decay: Normal D. IMPULSE ACCELERATION TESTS Step Velocity 100 dps CW: - CW: Normal; Normal gain - Stopped: Normal; Normal decay Step Velocity 100 dps CCW: - CCW: Normal; Normal gain - Stopped: Normal; Normal decay E. OTOLITH TESTS SVV Line Static: - Maximal Angle (degree): L 1.9 normal SVV Line Combined 4cm 300 dps: - Deferred due to technical factor CONCLUSIONS: This study is grossly normal. It shows evidences to indicate normal slow speed horizontal angular vestibulo-ocular reflexes. Clinical correlation is recommended. Lisa Rachel MD, PhD us Lauro Osuna PA-C NEUROLOGY ORDERABLES Fin al Result MANUALLY TRANSCRIBED RESULTS documented in this encounter Visit Diagnoses Diagnosis Dizziness Dizziness and giddiness Paresthesias Disturbance of skin sensation documented in this encounter Additional Health Concerns Assessment Noted Time PHQ-9 Depression Total Score: 0 01/21/20 25 9:15 AM EDT documented as of this encounter Care Teams Solid Waste Technician Relationship Specialty Start Date End Date Allison Mendez APRN-GAS MAKER HELPER PCP - General Nurse Practitioner 04/14/23 documented as of this encounter
--- OUTSIDE RECORDS SUMMARY | 2025-02-16 08:44 | XMS_ITS | Encounter Summary ---
Author Organization [employer] [facility] Address [id number] [address] [place] [address] Care Team Providers Care Child Care Coordinator Name Role Phone Allison Mendez APRN-INDUSTRIAL FURNACE FABRICATOR Primary Care Provider Reason for Referral * Neurology (Routine) - Pending Review Specialty Diagnoses / Procedures Referred By Contac t Referred To Contact Diagnoses Dizziness Paresthesias Procedures Videonystagmography (Neurology) Lauro Osuna PA-C [address], [address] [place] [address] Phone: tel: fax: Referral ID Status Reason Start Date Expiration Date V isits Requested Visits Authorized [id number] Pending Review 01/20/2025 01/20/2026 1 1 Reason for Visit * Neurology (Routine) - Pending Review Specialty Diagnoses / Procedures Referred By Contac t Referred To Contact Diagnoses Dizziness Paresthesias Procedures Videonystagmography (Neurology) Lauro Osuna PA-C [address], [address] [place] [address] Phone: tel: fax: Referral ID Status Reason Start Date Expiration Date V isits Requested Visits Authorized [id number] Pending Review 01/20/2025 01/20/2026 1 1 Encounter Details Date Type Department Care Team (Latest Contact Info) Description 02/16/2025 8:44 AM EDT - 02/16/2025 11:59 PM EDT Hospital Encounter [facility] - Neurophysiology [address] [facility] [address] [place] [address] Dizziness; Paresthesias Discharge Disposition: Home Social History [...] AM EST Office Visit [facility] [place] [address] [place] [address] Lauro Osuna PA-C [address], [address] [place] [address] documented as of this encounter Procedures Procedure Name Priority Date/Time Associated Diagnosis Comments VIDEONYSTAGMOGRAPHY (NEUROLOGY) Routine 02/16/2025 11:00 AM EDT Dizziness Paresthesias documented in this encounter Results * Videonystagmography (Neurology) (02/16/2025 11:00 AM EDT) Narrative MANUALLY TRANSCRIBED RESULTS - 02/16/2025 9:11 PM EDT Video/Electronystagmogram (V/ENG) Name: Gemma Velasco Age: 39 y.o. Gender: [...] baclofen, BuSpar, Flexeril, meclizine, Prozac, ibuprofen EQUIPMETS: [employer] Video-Electronystagmography System & Spectrum 6.2 software ([employer] TECH'S NOTE: Cooperative RESULTS: NYSTAGMUS TESTING Spontaneous: Normal; No dizziness; No nausea Gaze-Evoked: Horizontal: Normal; No dizziness; No nausea Vertical: Normal; No dizziness; No nausea Positional Head: Intermittent up beats with head at center position; No dizziness; No nausea Positional Body: Normal; Mild dizziness; No nausea Stanton-Hallpike: Left: Negative; No dizziness; No nausea Right: Negative; No dizziness; No nausea OCULOMOTOR TESTING Saccade: Horizontal: Normal bilateral velocities Normal bilateral accuracies Normal bilateral latencies Vertical Normal vertical velocities Normal vertical accuracies Normal vertical latencies Smooth Pursuit: Horizontal: Normal; No dizziness; No nausea Normal gains at 0.1, 0.2, and 0.4 Hz Vertical Normal; No dizziness; No nausea Normal gains at 0.1, 0.2, and 0.4 Hz OKN: Normal; Normal gain(s) to both right and left CALORIC TESTING (water) Cool: Left ear: Right-beating nystagmus; Normal suppression; Mild dizziness; No nausea Right ear: Left-beating nystagmus; Normal suppression; Severe dizziness; No nausea Warm: Left ear: Left-beating nystagmus; Normal suppression; Mild dizziness; No nausea Right ear: Right-beating nystagmus; Normal suppression; Mild dizziness; No nausea Unilateral Weakness: 6% on the left Directional Preponderance: 9% to the left Total Eye Speed: L -31/R +35 degree/sec ASSESSMENTS: The water caloric testing showed normal responses to thermal irrigation applied to the both ears. The nystagmus testing showed grossly normal static gaze holding. The oculomotor testing showed grossly normal dynamic gaze holding. CONCLUSIONS: This study is grossly normal. Clinical correlation is recommended. Lisa Rachel MD, PhD *Note: Eye movements were recorded with either video goggle (VNG) or with horizontal and vertical electro-oculography electrodes (ENG). A stimulating duration of 50 seconds was used for each caloric test. Rotations are described so that right means rotation about the superoinferior axis of the head bringing the pupil toward the patient s right ear, clockwise means rotation about naso-occipital axis bringing the superior pole of the eye toward the right ear, and down means rotation about the interaural axis bringing the pupil inferiorly. Copies of all the eye movement traces used in the analysis are kept in our data bank and are available upon requesting. The note provided information pertaining only to a specific event. A more detailed medical history is available in the medical record. us Lauro Osuna PA-C NEUROLOGY ORDERABLES Fin al Result MANUALLY TRANSCRIBED RESULTS documented in this encounter Visit Diagnoses Diagnosis Dizziness Dizziness and giddiness Paresthesias Disturbance of skin sensation documented in this encounter Additional Health Concerns Assessment Noted Time PHQ-9 Depression Total Score: 0 01/21/20 25 9:15 AM EDT documented as of this encounter Care Teams Child Care Coordinator Relationship Specialty Start Date End Date Allison Mendez APRN-INDUSTRIAL FURNACE FABRICATOR PCP - General Nurse Practitioner 04/14/23 documented as of this encounter
--- OUTSIDE RECORDS SUMMARY | 2025-02-17 10:49 | XMS_ITS | Encounter Summary ---
Author Organization [employer] Address [id number] [address] [place] [address] Care Team Providers Care Vault Maker Name Role Phone Allison Mendez APRN-SANITARY LANDFILL OPERATOR Primary Care Provider Reason for Referral * Diagnostic Imaging (Routine) - Closed Specialty Diagnoses / Procedures Referred By Contac t Referred To Contact Radiology Diagnoses Dizziness Paresthesias Procedures MR brain IAC with and without contrast Lauro Osuna PA-C [address], [address] [place] [address] Phone: tel: fax: Referral ID Status Reason Start Date Expiration Date Visits Re quested Visits Authorized [id number] Closed 01/20/2025 01/20/2026 1 1 Reason for Visit * Diagnostic Imaging (Routine) - Closed Specialty Diagnoses / Procedures Referred By Contjames george Referred To Contact Radiology Diagnoses Dizziness Paresthesias Procedures MR brain IAC with and without contrast Lauro Osuna PA-C [address], [address] [place] [address] Phone: tel: fax: Referral ID Status Reason Start Date Expiration Date Visits Re quested Visits Authorized [id number] Closed 01/20/2025 01/20/2026 1 1 Encounter Details Date Type Department Care Team (Latest Contact Info) Description 02/17/2025 10:49 AM EDT - 02/17/2025 11:59 PM EDT Hospital Encounter [facility] - MRI Imaging [address] [place] [address] Dizziness; Paresthesias Discharge Disposition: Home Social History [...] AM EST Office Visit [facility] [address] [place] [id number] Lauro Osuna PA-C [address], [address] [place] [address] documented as of this encounter Procedures Procedure Name Priority Date/Time Associated Diagnosis Comments MR BRAIN IAC W WO CONT Routine 02/17/2025 12:10 PM EDT Dizziness Paresthesias documented in this encounter Results * MR brain IAC with and without contrast (02/17/2025 12:10 PM EDT) Anatomical Region Laterality Modality Neuro, Head, Head and Neck, Neuro Covera N/A Magnetic Resonance 02/17/2025 2:15 PM EDT Narrative 02/17/2025 2:19 PM EDT HISTORY: A 39-year-old female with a history of the vertigo, dizziness and paresthesia. TECHNIQUE: Multiplanar and multisequence MRI examination of the brain and internal auditory canals is performed without and with intravenous contrast administration. COMPARISON: None available FINDINGS: Images through the temporal regions demonstrate normal and symmetrical internal auditory canals. The cranial nerves VII and VIII are normal and symmetrical bilaterally. There is no evidence of abnormal enhancing lesion to suggest acoustic neuroma or mass. The cerebellopontine angles are clear. The cochleae and semicircular canals are unremarkable. The mastoid air cells are clear. Both Meckel's caves are normal. Both trigeminal nerves are normal intracranially. The ventricular system is normal in size and configuration. There is normal differentiation of jones and white matter.There is no evidence of restricted diffusion to suggest acute or subacute age of infarction. There is no evidence of intracranial mass, hemorrhage or acute pathology. Enlarged pituitary fossa with empty sella. Both optic nerves are normal. CSF around the optic nerves is within normal limits. The cerebellum and brainstem are unremarkable. No evidence of mass effect, midline shift of the structures or extra-axial fluid collections. Postcontrast examination reveals no abnormal meningeal or parenchymal enhancement. Both distal internal carotid and vertebrobasilar arteries are patent. Dural venous sinuses are patent. No evidence of focal stenosis of the transverse or sigmoid sinuses. Paranasal sinuses are clear. IMPRESSION: 1. Cranial nerves VII and VIII are normal and symmetrical. The internal auditory canals are normal. 2. No evidence of acoustic neuroma or mass lesion in the cerebellopontine angles. 3. No evidence of intracranial mass, abnormal enhancing lesion or acute pathology. 4. Empty sella. 5. Paranasal sinuses and mastoid air cells are clear. Finalized by Madhu Torres MD on 02/17/2025 2:19 PM Procedure Note Madhu Torres MD - 02/17/2025 HISTORY: A 39-year-old female with a history of the vertigo, dizzinessand paresthesia. TECHNIQUE: Multiplanar and multisequence MRI examination of the brain andinternal auditory canals is performed without and with intravenouscontrast administration. COMPARISON: None available FINDINGS: Images through the temporal regions demonstrate normal andsymmetrical internal auditory canals. The cranial nerves VII and VIII arenormal and symmetrical bilaterally. There is no evidence of abnormalenhancing lesion to suggest acoustic neuroma or mass. The cerebellopontineangles are clear. The cochleae and semicircular canals are unremarkable. The mastoidair cells are clear. Both Meckel's caves are normal. Both trigeminal nerves are normalintracranially. The ventricular system is normal in size and configuration. There isnormal differentiation of jones and white matter.There is no evidence ofrestricted diffusion to suggest acute or subacute age of infarction. There is no evidence of intracranial mass, hemorrhage or acute pathology. Enlarged pituitary fossa with empty sella. Both optic nerves are normal. CSF around the optic nerves is within normallimits. The cerebellum and brainstem are unremarkable. No evidence of mass effect,midline shift of the structures or extra-axial fluid collections. Postcontrast examination reveals no abnormal meningeal or parenchymalenhancement. Both distal internal carotid and vertebrobasilar arteries are patent.Dural venous sinuses are patent. No evidence of focal stenosis of thetransverse or sigmoid sinuses. Paranasal sinuses are clear. IMPRESSION: 1. Cranial nerves VII and VIII are normal and symmetrical. The internalauditory canals are normal. 2. No evidence of acoustic neuroma or mass lesion in the cerebellopontineangles. 3. No evidence of intracranial mass, abnormal enhancing lesion or acutepathology. 4. Empty sella. 5. Paranasal sinuses and mastoid air cells are clear. Finalized by Madhu Torres MD on 02/17/2025 2:19 PM Lauro Osuna PA-C [facility] MRI ORDERABLES Final Result documented in this encounter Visit Diagnoses Diagnosis Dizziness Dizziness and giddiness Paresthesias Disturbance of skin sensation documented in this encounter Administered Medications Inactive Administered Medications - up to 3 most recent administrations Medication Order MAR Action Action Date Dose Rate Site gadoteridoL (PROHANCE) injection 10 mmol 20 mL 10 mmol (rounded from 13.7 mmol = 0.1 mmol/kg 137 kg), intravenous, Once in imaging, contrast, MRI, Starting on Thu02/17/25 at 1058, For 1 dose, VESICANT (RED), Indications: magnetic resonance imagingIndications:magnetic resonance imaging Given 02/17/2025 11:47 AM EDT 10 mmol sodium chloride 0.9 % flush 10 mL 10 mL, intravenous, Once in imaging, line care, MRI, Starting on Thu02/17/25 at 1146, For 1 dose Given 02/17/2025 11:47 AM EDT 10 mL documented in this encounter Additional Health Concerns Assessment Noted Time PHQ-9 Depression Total Score: 0 01/21/20 25 9:15 AM EDT documented as of this encounter Care Teams Vault Maker Relationship Specialty Start Date End Date Allison Mendez, UNIQUE-SANITARY LANDFILL OPERATOR PCP - General Nurse Practitioner 04/14/23 documented as of this encounter
--- OUTSIDE RECORDS SUMMARY | 2025-02-22 05:00 | XMS_ITS ---
Author Organization [facility] Address [address] [place] [address] Care Team Providers Care Toe Stripper Name Role Phone Rossydru Froilan Primary Care Provider [phone] Danisha Peguero REASON FOR VISIT FILLING Encounters Encounter Location Date Provider Diagnosis [facility] [address] [place] [address] 02/22/2025 Danisha Albert Dental caries on pit and fissure surface penetrating into dentin K02.52 Assessments Encounter Date Diagnosis (ICD Code) Assessment Notes Treatment Notes Treatment Clinical Notes Section Notes 02/22/2025 Dental caries on pit and fissure surface penetrating into dentin (ICD-10 - K02.52) Plan Of Treatment Next Appt Details Provider Name:Lluvia Helton, 03/13/2025 08:30:00 AM, [address], [place], [address], Provider Name:Danisha Albert, 03/15/2025 01:00:00 PM, [address] [place], [address], Provider Name:Danisha Albert, 07/07/2025 02:00:00 PM, [address] [place], [address], Provider Name:Danisha Albert, 07/19/2025 09:30:00 AM, [address] [place], [address], Provider Name:Danisha Albert, 07/20/2025 09:45:00 AM, [address] [place], [address], Progress Notes * DENISHA MALDONADO LDOB:1985 (39 yo F)Acc No.[id number]:02/22/2025 Patient: DENISHA DELANEY Provider: Dariela ALBERT DDS :1985 A ge:39 Y S ex:Female Date:02/22/2025 Address[address] [place] [place], [place] Pcp:Froilan Mondragon Subjective: * Chief Complaints: * F ILLING Objective: * Dental Examination/Plan : Tooth / Surface Status Description Provider 3 OL C RESIN COMPOS - 2 SURFACES POSTERIOR FLC 02/22/2025 occlusal going to lingual Assessment: * Assessment: 1. D ental caries on pit and fissure surface penetrating into dentin - K02.52 (Primary) ? Plan: * Procedure Codes: D 2392 RESIN COMPOS - 2 SURFACES POSTERIOR, TthNo: 3, Srfc: OL Billing Information: * Procedure Codes: D2392 RESIN COMPOS - 2 SURFACES POSTERIOR. Tt No: 3 Srfc: OL * Electronic signature of Angelicaalmas candelariohandy Albert DDS on 02/23/2025 at 07:42 AM EDT Sign off status: Pending * Provider: Dariela ALBERT DDS Date: 1 Generated for Printi ng/Faxing/eTransmitting on: 07:42 AM EDT
--- NOTE | 2025-02-23 | XR_ITS ---
[facility] [place] [id number] Patient Name: DENISHA MALDONADO MRN: [id number] date: 1985 Sex: F Assigned Patient Location: [facility] Current Patient Location: [facility] Accession/Order Number: [id number] Exam Date: 02/23/2025 10:48 Report Date: 02/23/2025 11:08 At the request of: NATHEN DUVAL DO Procedure: XR shoulder RT min 2V RIGHT SHOULDER - 4 views CLINICAL HISTORY: Right shoulder pain radiating down the arm and limited range of motion for several years. No recent injury. COMPARISON: Chest x-ray 12/01/2023 AP, Y and Grashey views were obtained. There is no evidence of fracture or dislocation. There are no significant soft tissue abnormalities. XR/XR shoulder RT min 2V IMPRESSION: NO ACUTE BONY FINDINGS. Impression dictated by: Felecia Aguirre M.D. 02/23/2025 11:08 AM Dictation Location: [place] [address] Electronically authenticated by: [id number] Y Date: 02/23/2025 11:08
--- OUTSIDE RECORDS SUMMARY | 2025-02-23 07:41 | XMS_ITS | Encounter Summary ---
Author Organization [facility] Address [address] [facility] [place] [address] Care Team Providers Care Drier Attendant Name Role Phone Leonard Aviles MD Primary Care Provider [phone] Allison Mendez HUMANE OFFICER Unavailable [phone] Allison Mendez HUMANE OFFICER Unavailable [phone] Btesey Lew DO Unavailable [phone] Encounter Details Date Type Department Care Team (Late st Contact Info) Description 01/12/2024 Abstract [facility] [address] [place] [address] Allison Mendez NP [address] [facility] [place] [address] Social History Tobacco Use Types Packs/Day Years Used Date Smoking Tobacco: Never Alcohol Use Standard Drinks/Week Comments Not Currently 0 (1 standard drink = 0.6 oz pur e alcohol) Social Connection and Isolation Panel Answer Date Recorded In a typical week, how many times do you talk on the phone with family, friends, or neighbors? More than three times a week 07/29/2023 How often do you get togethe r with friends or relatives? Once a week 07/29/2023 How often do you attend [facility] or buddhist services? Never 07/29/2023 Do you belong to any clubs o r organizations such as voodoo groups, unions, fraternal or athletic groups, or school groups? No 07/29/2023 How often do you attend meet ings of the clubs or organizations you belong to? Never 07/29/2023 Are you , , di vorced, , never , or living with a partner? 07/29/2023 AUDIT-C Answer Date Recorded Q1: How often do you have a drink containing alc ohol? Monthly or less 07/29/2023 Q2: How many drinks containi ng alcohol do you have on a typical day when you are drinking? 1 or 2 07/29/2023 Q3: How often do you have si x or more drinks on one occasion? Never 07/29/2023 Overall Financial Resource Strain (CARDIA) Answe r Date Recorded How hard is it for you to pa y for the very basics like food, housing, medical care, and heating? Somewhat hard 07/29/2023 [facility] - Occupational Stress Questionnaire Answer Date Recorded Do you feel stress - tense, restless, nervous, or anxious, or unable to sleep at night because your mind is troubled all the time - these days? Only a little 07/29/2023 Exercise Vital Sign Answer Date Recorde d On average, how many days pe r week do you engage in moderate to strenuous exercise (like a brisk walk)? 3 days 07/29/2023 On average, how many minutes do you engage in exercise at this level? 20 min 07/29/2023 Hunger Vital Sign Answer Date Recorded Within the past 12 months, y ou worried that your food would run out before you got the money to buy more. Sometimes true Within the past 12 months, t he food you bought just didn't last and you didn't have money to get more. Sometimes true PRAPARE - Transportation Answer Date Re corded In the past 12 months, has l ack of transportation kept you from medical appointments or from getting medications? No 07/10 In the past 12 months, has l ack of transportation kept you from meetings, work, or from getting things needed for daily living? No 07/29/2023 Housing Stability Vital Sign Answer Joaquin e Recorded In the last 12 months, was t here a time when you were not able to pay the mortgage or rent on time? Yes 07/29/2023 In the last 12 months, how many places have you lived? 1 07/29/2023 In the last 12 months, was t here a time when you did not have a steady place to sleep or slept in a alf (including now)? No 07/29/2023 Comments Unknown Sex and Gender Information Value Date Recorded Sex Assigned at Not on file Legal Sex Female 9:43 PM EDT Gender Identity Not on file Sexual Orientation Not on file documented as of this encounter Plan of Treatment Not on file documented as of this encounter Visit Diagnoses Not on filedocumented in this encounter Care Teams Drier Attendant Relationship Specialty Start Date End Date Leonard Aviles MD PCP - General Family Medicine 07/30/23 Allison Mendez NP [address] [place] [address] PCP - [facility] 02/09/24 Allison Mendez NP Nurse Practitioner Family Medicine 07/30/23 Betsey Lew DO [address] [place] [address] Referring Physician Neurology 07/13/24 documented as of this encounter
--- OUTSIDE RECORDS SUMMARY | 2025-02-23 07:42 | XMS_ITS | Clinical Summary ---
Author Organization [facility] Address [address] [place] [address] Care Team Providers Care Broker Agricultural Produce Name Role Phone Unavailable Primary Care Provider Unavailabl e Allergies Active Allergy Reactions Criticality Noted Date Comments Gabapentin Other: See Comments 02/17/2023 Nausea Hydrochlorothiazide Other: See Comments 023 Caused 106 degree fever Medications VICTOZA 3-ROME 0.6 mg/0.1 mL (18 mg/3 mL) INJECT 1.8mg SUBCUTANEOUSLY DAILY 3 Active metFORMIN (GLUCOPHAGE) 500 mg tablet 1 (one) time each day at the same time. 2 Active meclizine (ANTIVERT) 25 mg tab 1 (one) time each day at the same time. Active busPIRone (BUSPAR) 10 mg tablet Take 1 tablet by mouth every 12 hours. 3 Active losartan (COZAAR) 50 mg tablet 1 (one) time each day at the same time. Active cyclobenzaprin e (FLEXERIL) 10 mg tablet 1 (one) time each day at the same time. 2 Active doxepin capsule 10 mg Take 10-20 mg by mouth daily at bedtime. 3 Active atorvastatin (LIPITOR) 10 mg tablet Take 10 mg by mouth. 3 Active verapamil ER 180 mg 24 hr capsule Take 1 capsule by mouth every afternoon. 3 Active levothyroxine (SYNTHROID) 150 mcg tablet TAKE 1 TABLET BY MOUTH 2 (TWO) HOURS prior to any food/drink/meds first thing IN THE MORNING Active aspirin 81 mg cap Active magnesium gluconate (MAG-G) 27 mg (500 mg) tab Take by mouth once daily. Twice daily Active TURMERIC ORAL Take by mouth. 1-2 per day Active Social History Tobacco Use Types Packs/Day Years Used Date Smoking Tobacco: Never Smokeless Tobacco: Never PHQ-2 Answer Date Recorded PHQ-2 score 0 02/13/2023 Area Deprivation Index Answer Date Hteodore rded National Score (1-100), lower number is lower ri sk 76 02/17/2023 State Score (1-10), lower number is lower risk 6 02/17/2023 Data from: https://www.neighborhoodatlas.medicine.[facility].edu/. Last address used for calculation [address] 02/17/2023 Comments Unknown Sex and Gender Information Value Date Recorded Sex Assigned at Not on file Legal Sex Female 10:49 AM EST Gender Identity Not on file Sexual Orientation Not on file Last Filed Vital Signs Vital Sign Reading Time Taken Comments Blood Pressure 116/82 02/17/2023 8:48 AM EDT Pulse 96 02/17/2023 8:48 AM EDT Temperature - - Respiratory Rate - - Oxygen Saturation 98% 02/17/2023 8:48 AM EDT Inhaled Oxygen Concentration - - Weight 126.6 kg (279 lb) 02/17/2023 8:48 AM EDT Height - - Body Mass Index - - Plan of Treatment Health Maintenance Due Date Last Done Comments Anxiety Screening 12/25/2001 Depression Screening 12/25/2001 HIV Screening 12/25/2001 Hepatitis C Screening 12/25/2001 DTaP,Tdap,Td Vaccine (1 - Tdap) 12/25/2002 Hepatitis B Vaccine (1 of 3 - 19+ 3-dose series) 12/25/2002 Cervical Cancer Screening 12/25/2004 HPV Vaccine (1 - 3-dose SCDM series) 12/25/2010 Mammogram Screening 2023 Covid-19 Vaccine ( - 2024- season) 01/09/202507/2020, 08/20/2020 Influenza Vaccine (#1) 2025 Insurance [facility] MEDICAID
--- OUTSIDE RECORDS SUMMARY | 2025-02-23 07:42 | XMS_ITS | Encounter Summary ---
Author Organization [facility] Address [address] [facility] [place] [address] Care Team Providers Care Predatory Animal Trapper Name Role Phone Leonard Aviles MD Primary Care Provider [phone] Leonard Aviles MD Primary Care Provider [phone] Allison Mendez REFLEXOLOGIST Unavailable [phone] Leida Gifford REFLEXOLOGIST Unavailable [phone] Allison Mendez REFLEXOLOGIST Unavailable [phone] Betsey Lew DO Unavailable [phone] Reason for Visit * Reason Comments Med Refill Encounter Details Date Type Department Care Team (Late st Contact Info) Description 05/26/2023 Refill [facility] [address] [place] [address] Allison Mendez NP [address] [place] [address] Panic attack (Primary Dx) Social History Tobacco Use Types Packs/Day Years Used Date Smoking Tobacco: Never Alcohol Use Standard Drinks/Week Comments Not Currently 0 (1 standard drink = 0.6 oz pur e alcohol) Comments Unknown Sex and Gender Information Value Date Recorded Sex Assigned at Not on file Legal Sex Female 9:43 PM EDT Gender Identity Not on file Sexual Orientation Not on file documented as of this encounter Miscellaneous Notes * Telephone Encounter - Astrid Sifuentes MA - 06/02/2023 1:23 PM EST pt called stating martín bone does not currently have Victoza 18 MG/3ML injection and she was unsure if you could exchange it just this once. documented in this encounter Plan of Treatment Not on file documented as of this encounter Visit Diagnoses Diagnosis Panic attack- Primary Panic disorder without agoraphobia documented in this encounter Care Teams Predatory Animal Trapper Relationship Specialty Start Date End Date Leonard Aviles MD PCP - General Family Medicine 11/19/22 07/29/23 Leonard Aviles MD PCP - General [facility] Medicine 07/30/23 Leida Gifford NP PCP - [facility] 08/10/23 Allison Mendez NP [address] [place] [address] PCP - [facility] 02/09/24 Allison Mendez NP Nurse Practitioner Family Medicine 07/30/23 Betsey Lew DO [address] [place] [address] Referring Physician Neurology 07/13/24 documented as of this encounter
--- OUTSIDE RECORDS SUMMARY | 2025-02-23 07:42 | XMS_ITS | Clinical Summary ---
Author Organization [facility] Address [address] [place] [address] Phone Care Team Providers Care Flame Cutting Machine Operator Name Role Phone HeidimichellephamAllison arango Ara CONTINUOUS WELD PIPE MILL SUPERVISOR-HEAD WRESTLING COACH Primary Care Provider Allergies Active Allergy Reactions Criticality Noted Date Comments Celecoxib Shortness of breath High 10/13/2023 Pt had swelling in her knees, dizziness, spiked BP and heart rate, chest pain/pressure, and SOB Duloxetine Other 04/11/2024 Gabapentin Other 08/03/2023 Hydrochlorothiazide Anaphylaxis,Fever High 4 Medications metFORMIN (Glucophage) 500 mg tablet Take 1 tablet (500 mg) by mouth once daily. 1 Active verapamil ER (Veralan PM) 180 mg 24 hr capsule Take 1 capsule (180 mg) by mouth once daily. 1 Active aspirin 81 mg EC tablet Take 1 tablet (81 mg) by mouth once daily. Active busPIRone (Buspar) 10 mg tablet Take 1 tablet (10 mg) by mouth 2 times a day. Active meclizine (Antivert) 25 mg tablet Take 1 tablet (25 mg) by mouth 3 times a day as needed for dizziness. Active sertraline (Zoloft) 100 mg tablet Take 1 tablet (100 mg) by mouth once daily. Active turmeric root extract 500 mg capsule Take by mouth. Activ e liraglutide (Victoza 3-Rio) 0.6 mg/0.1 mL (18 mg/3 mL) injection Inject 0.2 mL (1.2 mg) under the skin once daily. Active levothyroxine (Synthroid, Levoxyl) 150 mcg tablet Take 1 tablet (150 mcg) by mouth early in the morning.. Take on an empty stomach at the same time each day, either 30 to 60 minutes prior to breakfast Active losartan (Cozaar) 50 mg tablet Take 1 tablet (50 mg) by mouth once daily. Active cholecalciferol (Vitamin D3) 25 MCG (1000 UT) tablet Take 1 tablet (1,000 Units) by mouth once daily. Active atorvastatin (Lipitor) 10 mg tablet Take 1 tablet (10 mg) by mouth once daily at bedtime. 3 Active tiZANidine (Zanaflex) 4 mg tablet Take 1 tablet (4 mg) by mouth every 6 hours if needed for muscle spasms. 4 Active triamcinolone (Nasacort) 55 mcg nasal inhaler Administer 2 sprays into each nostril once daily. Active magnesium oxide 500 mg capsule Take 1 capsule (500 mg) by mouth 2 times a day. Active cyanocobalamin (Vitamin B-12) 1,000 mcg tablet Take 1 tablet (1,000 mcg) by mouth once daily. Active multivitamin with minerals tablet Take 1 tablet by mouth once daily. Active acetaminophen (Tylenol 8 HOUR) 650 mg ER tablet Take 1 tablet (650 mg) by mouth every 8 hours if needed for mild pain (1 - 3). Do not crush, chew, or split. Active diclofenac sodium (Voltaren) 1 % gel Apply 4.5 inches (4 g) topically 4 times a day. Active Active Problems Problem Noted Date Diagnosed Date BMI 45.0-49.9, adult 04/11/2024 Benign essential hypertension 08/03/2023 Dyspnea 08/03/2023 Fatigue 08/03/2023 Systolic murmur 08/03/2023 Vertigo 08/03/2023 Family History Medical History Relation Name Comments Diabetes type I Brother Diabetes type I Mother Hypertension Mother Hypertension Sister Relation Name Status Comments Brother Mother Sister Social History Tobacco Use Types Packs/Day Years Used Date Smoking Tobacco: Never Smokeless Tobacco: Never Tobacco Cessation:Counseling Given: Not Answered Alcohol Use Standard Drinks/Week Comments Never 0 (1 standard drink = 0.6 oz pur e alcohol) Comments Unknown Sex and Gender Information Value Date Recorded Sex Assigned at Not on file Legal Sex Female 11:16 AM EST Gender Identity Not on file Sexual Orientation Not on file Last Filed Vital Signs Vital Sign Reading Time Taken Comments Blood Pressure 122/76 04/11/2024 11:31 AM EST Pulse 82 04/11/2024 11:31 AM EST Temperature - - Respiratory Rate - - Oxygen Saturation - - Inhaled Oxygen Concentration - - Weight 124 kg (273 lb) 04/11/2024 11:31 AM EST Height 160 cm (5' 3 ) 04/11/2024 11:31 AM EST Body Mass Index 48.36 04/11/2024 11:31 AM EST Plan of Treatment Health Maintenance Due Date Last Done Comments HIV Screening 1983 Lipid Panel 1983 TSH Level 1983 MMR Vaccines (1 of 1 - Standard series) 12/25/1984 Diabetes Screening 12/25/2001 Hepatitis C Screening 12/25/2001 Hepatitis B Vaccines (1 of 3 - 19+ 3-dose series) 12/25/2002 HPV/Cotest 12/25/2004 DTaP/Tdap/Td Vaccines (1 - Tdap) 12/25/2005 HPV Vaccines (1 - 3-dose standard series) 12/25/2010 Yearly Adult Physical 02/14/2022 02/13/2021 Cervical Cancer Screening 02/14/2024 Pap Smear 02/14/2024 02/13/2021 Influenza Vaccine (#1) 2024 COVID-19 Vaccine (3 - 2024-2 6 season) 2025 09/10/2020, 08/20/2020 Mammogram 03/22/2025 03/22/2024 Zoster Vaccines (1 of 2) 12/25/2033 HIB Vaccines Aged Out No longer eligi ble based on patient's age to complete this topic Hepatitis A Vaccines Aged Out No long er eligible based on patient's age to complete this topic IPV Vaccines Aged Out No longer eligi ble based on patient's age to complete this topic Meningococcal Vaccine Aged Out No samantha giselle eligible based on patient's age to complete this topic Pneumococcal Vaccine: Pediatrics and At-Risk Adult Patients Aged Out No longer eligible b ased on patient's age to complete this topic Rotavirus Vaccines Aged Out No longer eligible based on patient's age to complete this topic Insurance [facility] Care Teams Flame Cutting Machine Operator Relationship Specialty Start Date End Date Allison Mendez, CONTINUOUS WELD PIPE MILL SUPERVISOR-HEAD WRESTLING COACH [address] [place] [address] PCP - General 10/09/20
--- OUTSIDE RECORDS SUMMARY | 2025-02-23 07:42 | XMS_ITS | Encounter Summary ---
Author Organization [facility] Address [address] [facility] [place] [address] Care Team Providers Care Superintendent Operations Division Name Role Phone Leonard Aviles MD Primary Care Provider [phone] Allison Mendez CAUSTIC OPERATOR Unavailable [phone] Allison Mendez NP Unavailable [phone] Betsey Lew DO Unavailable [phone] Encounter Details Date Type Department Care Team (Late st Contact Info) Description 12/02/2023 Orders Only [facility] [address] [place] [address] Allison Mendez NP [address] [place] [address] Social History Tobacco Use Types Packs/Day Years [...] week 07/29/2023 How often do you attend [facility] or religion services? Never 07/29/2023 Do you belong to any clubs o r organizations such as mu-ism groups, unions, fraternal or athletic groups, or [...] medical care, and heating? Somewhat hard 07/29/2023 [facility] [...] place to sleep or slept in a group home (including now)? No 07/29/2023 Comments Unknown Sex and Gender Information Value Date Recorded Sex Assigned at Not on file Legal Sex Female 9:43 PM EDT Gender Identity Not on file Sexual Orientation Not on file documented as of this encounter Plan of Treatment Not on file documented as of this encounter Procedures Procedure Name Priority Date/Time Associated Diagnosis Comments SCANNED LABS Routine 12/02/2023 1:35 PM EDT documented in this encounter Results * SCANNED LABS (12/02/2023 1:35 PM EDT) Allison Mendez NP LAB CHG PERFORMABLES Final Resu lt documented in this encounter Visit Diagnoses Not on filedocumented in this encounter Care Teams Superintendent Operations Division Relationship Specialty Start Date End Date Leonard Aviles MD PCP - General Family Medicine 07/30/23 Allison Mendez NP [address] [place] [address] PCP - [facility] 02/09/24 Allison Mendez NP Nurse Practitioner Family Medicine 07/30/23 Betsey Lew DO [address] [place] [address] Referring Physician Neurology 07/13/24 documented as of this encounter
--- OUTSIDE RECORDS SUMMARY | 2025-02-23 07:42 | XMS_ITS | Encounter Summary ---
Author Organization [facility] Address [address] [facility] [place] [address] Care Team Providers Care Brand Sales Consultant Name Role Phone Leonard Aviles MD Primary Care Provider [phone] Allison Mendez BRAND EXECUTIVE Unavailable [phone] Allison Mendez NP Unavailable [phone] Betsey Lew DO Unavailable [phone] Encounter Details Date Type Department Care Team (Late st Contact Info) Description 03/10/2024 Orders Only [facility] [address] [place] [address] Allison Mendez NP [address] [facility] [place] [address] Social History Tobacco Use Types Packs/Day Years [...] week 07/29/2023 How often do you attend [facility] or sabianist services? Never 07/29/2023 Do you belong to any clubs o r organizations such as zoroastrianism groups, unions, fraternal or athletic groups, or [...] medical care, and heating? Somewhat hard 07/29/2023 [facility] - Occupational Stress Questionnaire Answer Date Recorded [...] place to sleep or slept in a [facility] (including now)? No 07/29/2023 Comments Unknown Sex and Gender Information Value Date Recorded Sex Assigned at Not on file Legal Sex Female 9:43 PM EDT Gender Identity Not on file Sexual Orientation Not on file documented as of this encounter Plan of Treatment Not on file documented as of this encounter Procedures Procedure Name Priority Date/Time Associated Diagnosis Comments XR KNEE 3 VIEWS BILATERAL Routine 03/10/2024 8:44 AM EDT documented in this encounter Results * XR knee 3 views bilateral (03/10/2024 8:44 AM EDT) Anatomical Region Laterality Modality Lower Extremities, Knee Bilateral Radiogra phic Imaging Allison Mendez BRAND EXECUTIVE IMG XR PROCEDURES Final Result documented in this encounter Visit Diagnoses Not on filedocumented in this encounter Care Teams Brand Sales Consultant Relationship Specialty Start Date End Date Leonard Aviles MD PCP - General Family Medicine 07/30/23 Allison Mendez NP [address] [place] [address] PCP - [facility] 02/09/24 Allison Mendez NP Nurse Practitioner Family Medicine 07/30/23 Betsey Lew DO [address] [place] [address] Referring Physician Neurology 07/13/24 documented as of this encounter
--- OUTSIDE RECORDS SUMMARY | 2025-02-23 07:42 | XMS_ITS | Encounter Summary ---
Author Organization [facility] Address [address] [facility] [place] [address] Care Team Providers Care Oil And Gas Recruiter Name Role Phone Leonard Aviles MD Primary Care Provider [phone] Leonard Aviles MD Primary Care Provider [phone] Allison Mendez STEAM TENDER Unavailable [phone] Leida Gifford STEAM TENDER Unavailable [phone] Allison Mendez STEAM TENDER Unavailable [phone] Betsey Lew DO Unavailable [phone] Encounter Details Date Type Department Care Team (Late st Contact Info) Description 10/16/2022 [facility] [address] [place] [address] Flo Wan DO [address] [place] [address] Social History Tobacco Use Types Packs/Day Years Used Date Smoking Tobacco: Never Tobacco Cessation:Counseling Given: Not Answered Alcohol Use Standard Drinks/Week Comments Not Currently [...] on filedocumented in this encounter Care Teams Oil And Gas Recruiter Relationship Specialty Start Date End Date Leonard Aviles MD PCP - [facility] 11/19/22 07/29/23 Leonard Aviles MD PCP - [facility] 07/30/23 Leida Gifford NP PCP - [facility] 08/10/23 Allison Mendez NP [address] [place] [address] PCP - [facility] 02/09/24 Allison Mendez NP Nurse Practitioner Family [facility] 07/30/23 Betsey Lew DO [address] [place] [address] Referring Physician Neurology 07/13/24 documented as of this encounter
--- OUTSIDE RECORDS SUMMARY | 2025-02-23 07:42 | XMS_ITS | Clinical Summary ---
Author Organization [facility] Address [facility] [id number] [address] [place] [address] Care Team Providers Care Call Manager Name Role Phone Heidimichellesrinivasa Allison Pam CALHOUN-SOLE ROUNDER Primary Care Provider Allergies Active Allergy Reactions Criticality Noted Date Comments Celecoxib Other (See Comments),Shortness Of Breath High 10/13/2023 Pt had swelling in her knees, dizziness, spiked BP and heart rate, chest pain/pressure, and SOB Duloxetine Other (See Comments) 04/11/2024 Gabapentin 07/29/2021 Hydrochlorothiazide 07/29/2021 Medications cyclobenzaprine (FLEXERIL) 10 mg tablet Take 1 tablet (10 mg total) by mouth daily as needed. 2 Active losartan (COZAAR) 25 mg tablet Take 1 tablet (25 mg total) by mouth in the morning. 2 Active metFORMIN (GLUCOPHAGE) 500 mg tablet Take 2 tablets (1,000 mg total) by mouth in the morning. 2 Active verapamiL (VERELAN) 180 mg 24 hr capsule Take 1 capsule (180 mg total) by mouth in the morning. 2 Active meclizine (ANTIVERT) 25 mg tablet Take 0.5 tablets (12.5 mg total) by mouth as needed in the morning and 0.5 tablets (12.5 mg total) as needed in the evening for dizziness. Active sertraline (ZOLOFT) 100 mg tablet Take 1 tablet (100 mg total) by mouth in the morning. 3 Active busPIRone (BUSPAR) 10 mg tablet Take 1 tablet (10 mg total) by mouth in the morning and at bedtime. Active losartan (COZAAR) 50 mg tablet Take 2 tablets (100 mg total) by mouth in the morning. Active doxepin (SINEquan) 10 mg capsule Take 1-2 capsules (10-20 mg total) by mouth nightly. 3 Active atorvastatin (LIPITOR) 10 mg tablet Take 1 tablet (10 mg total) by mouth in the morning. Active levothyroxine (SYNTHROID, LEVOTHROID) 150 MCG tablet Take 1 tablet (150 mcg total) by mouth in the morning. Active aspirin 81 mg capsule Take 81 mg by mouth in the morning. Active magnesium gluconate (MAGONATE) 500 mg tablet tablet Take 1 tablet (500 mg total) by mouth in the morning and at bedtime. Active riboflavin, vitamin B2, 100 mg tablet Take 2 tablets (200 mg total) by mouth in the morning and 2 tablets (200 mg total) before bedtime. Active TURMERIC ORAL Take 500 mg by mouth in the morning and at bedtime. Active albuterol (PROVENTIL HFA;VENTOLIN HFA) 90 mcg/actuation inhaler Inhale 2 puffs every 6 (six) hours as needed. 5 Active baclofen (LIORESAL) 10 mg tablet Take 1 tablet (10 mg total) by mouth Three times daily as needed. 4 Active carvediloL (COREG) 3.125 mg tablet Take 1 tablet (3.125 mg total) by mouth in the morning and 1 tablet (3.125 mg total) in the evening. Take with meals. 5 Active cholecalciferol , vitamin D3, 2,000 units capsule Take 1 capsule (2,000 Units total) by mouth in the morning. 5 Active cyanocobalamin 1000 MCG tablet Take 1 tablet (1,000 mcg total) by mouth in the morning. Active diclofenac sodium (VOLTAREN) 1 % gel Apply 4 g topically in the morning and 4 g at noon and 4 g in the evening and 4 g before bedtime. Active FLUoxetine (PROzac) 20 mg capsule Take 1 capsule (20 mg total) by mouth in the morning. 03/21/20 25 Active ibuprofen (MOTRIN) 800 mg tablet Take 1 tablet (800 mg total) by mouth every 8 (eight) hours as needed. Active Active Problems Problem Noted Date Diagnosed Date Family history of von Willebrand disease 023 Endometrial hyperplasia with atypia 07/29/2021 Encounters Date Type Department Care Team Description 02/17/2025 10:49 AM EDT - 02/17/2025 11:59 PM EDT Hospital Encounter [facility] - MRI Imaging [address] [place] [phone] Dizziness; Paresthesias Discharge Disposition: Home 02/16/2025 8:44 AM EDT - 02/16/2025 11:59 PM EDT Hospital Encounter [facility] - Neurophysiology [address] [facility] [address] [place] [address] Dizziness; Paresthesias Discharge Disposition: Home 02/16/2025 8:44 AM EDT - 02/16/2025 11:59 PM EDT Hospital Encounter [facility] - Neurophysiology [address] [place] [address] Dizziness; Paresthesias Discharge Disposition: Home 02/16/2025 Travel 02/10/2025 [facility]phone [facility] [address] [place] [address] Jose Enrique Toussaint MR BRAIN IAC 01/24/2025 Travel 01/20/2025 9:30 AM EDT [facility] [address] [place] [phone] Lauro Osuna, JANELLE Dizziness (Primary Dx); Paresthesias; Fibromyalgia; Morning headache 01/19/2025 Travel from Last 3 Months Family History Medical History Relation Name Comments Skin cancer Maternal Grandmother Breast cancer Paternal Grandmother Relation Name Status Comments Maternal Grandmother Paternal Grandmother Social History Tobacco Use Types Packs/Day Years [...] file Not on file Not on file Last Filed Vital Signs Vital Sign Reading Time Taken Comments Blood Pressure 134/89 01/20/2025 9:10 AM EDT Pulse 86 01/20/2025 9:10 AM EDT Temperature 36.8 C (98.3 F) 07/29/2021 9:00 AM EDT Respiratory Rate - - Oxygen Saturation 98% 07/29/2021 9:00 AM EDT Inhaled Oxygen Concentration - - Weight 137 kg (302 lb) 02/17/2025 10:57 AM EDT Height 160 cm (5' 3 ) 01/20/2025 9:10 AM EDT Body Mass Index 53.5 01/20/2025 9:10 AM EDT Plan of Treatment Upcoming Encounters Date Type Department Care Team (Late st Contact Info) Description 04/25/2025 10:00 AM EST Office Visit [facility] [address] [place] [address] Lauro Osuna, PAJovanC [address] [facility] [facility] [address] [place] [address] Health Maintenance Due Date Last Done Comments Adult BMI Follow Up Plan 12/25/2001 DTaP,Tdap and Td Vaccines (1 - Tdap) 12/25/2002 COVID-19 Vaccine (3 - season) 01/09/202507/2020, 08/20/2020 Influenza Vaccine 01/09/2025 04/25/2022 Depression Screening 01/20/2026 01/20/2025 Tobacco Screening 01/20/2026 01/20/2025 Adult BMI Screening 02/17/2026 02/17/2025 Medical Devices Not on file Procedures Procedure Name Priority Date/Time Associated Diagnosis Comments MR BRAIN IAC W WO CONT Routine 12:10 PM EDT Dizziness Paresthesias VIDEONYSTAGMOGRAPHY (NEUROLOGY) Routine 02/16/2025 11:00 AM EDT Dizziness Paresthesias ROTARY CHAIR EVALUATION (NEUROLOGY) Routine 02/16/2025 9:30 AM EDT Dizziness Paresthesias from Last 3 Months Results * MR brain IAC with and [...] on 02/17/2025 2:19 PM Lauro Osuna PA-C IMG MRI ORDERABLES Final Result * Videonystagmography (Neurology) (02/16/2025 11:00 AM EDT) [...] baclofen, BuSpar, Flexeril, meclizine, Prozac, ibuprofen EQUIPMETS: [employer] Video-Electronystagmography System & Spectrum 6.2 software ([employer] TECH'S NOTE: Cooperative RESULTS: NYSTAGMUS TESTING Spontaneous: Normal; No dizziness; No nausea Gaze-Evoked: Horizontal: Normal; No dizziness; No nausea Vertical: Normal; No dizziness; No nausea Positional Head: Intermittent up beats with head at center position; No dizziness; No nausea Positional Body: Normal; Mild dizziness; No nausea [place]: Left: Negative; No dizziness; No nausea Right: [...] ORDERABLES Fin al Result MANUALLY TRANSCRIBED RESULTS * Rotary Chair Evaluation (Neurology) (02/16/2025 9:30 [...] baclofen, BuSpar, Flexeril, meclizine, Prozac, ibuprofen EQUIPMETS: [employer] System 2000 Rotational Chair TECH'S NOTE: [...] ORDERABLES Fin al Result MANUALLY TRANSCRIBED RESULTS from Last 3 Months Insurance [place] [employer] Care Teams Call Manager Relationship Specialty Start Date End Date Allison Mendez APRN-SOLE ROUNDER PCP - General Nurse Practitioner 04/14/23
--- OUTSIDE RECORDS SUMMARY | 2025-02-23 07:42 | XMS_ITS | Encounter Summary ---
Author Organization [facility] Address [address] [place] [address] Care Team Providers Care Outdoor Pursuits Instructor Name Role Phone Leonard Aviles MD Primary Care Provider [phone] Allison Mendez EXCELSIOR PICKER Unavailable [phone] Allison Mendez NP Unavailable [phone] Betsey Lew DO Unavailable [phone] Encounter Details Date Type Department Care Team (Late st Contact Info) Description 03/22/2024 Clinisync Result Encounter [facility] External Department Unsolicited Allison Mendez NP [address] [place] [id number] Social History Tobacco Use Types Packs/Day Years [...] week 07/29/2023 How often do you attend chur ch or sabianism services? Never 07/29/2023 Do you belong to any clubs o r organizations such as yazidism groups, unions, fraternal or athletic groups, or [...] medical care, and heating? Somewhat hard 07/29/2023 [facility] [place] of Occupat ional Health - Occupational Stress Questionnaire Answer Date Recorded [...] place to sleep or slept in a residential (including now)? No 07/29/2023 Comments Unknown Sex and Gender Information Value Date Recorded Sex Assigned at Not on file Legal Sex Female 9:43 PM EDT Gender Identity Not on file Sexual Orientation Not on file documented as of this encounter Plan of Treatment Not on file documented as of this encounter Procedures Procedure Name Priority Date/Time Associated Diagnosis Comments MM TOMOSYNTHESIS SCREENING BI 03/22/2024 2:42 PM EST documented in this encounter Results * MM TOMOSYNTHESIS SCREENING BI (03/22/2024 2:42 PM EST) Anatomical Region Laterality Modality Other 03/22/2024 2:4 2 PM EST Narrative 03/22/2024 2:43 [place] [address] Mammography Report Signed Patient: GEMMA MALDONADO MR#: [id number] : 1985 Acct:[id number] Age/Sex: 38 / F ADM Date: 03/22/24 Loc: MAMMO Attending Dr: Allison Mendez NP Ordering Physician: Allison Mendez NP Results: Date of Service: 03/22/24 Follow Up: Procedure(s): MM tomosynthesis screening BI Accession Number(s): [id number] cc: Allison Mendez NP Patient Name: GEMMA MALDONADO MR#: [id number] : 1985 Exam Date: 03/22/2024 Ordering Doctor: LAURO Mendez CNP RADIOLOGY REPORT PROCEDURE: MM TOMOSYNTHESIS SCREENING BI COMPARISON: None. INDICATIONS: Screening Calculator Name NCI Breast Cancer Risk Assessment Tool 5 Year Breast Cancer Risk 0.50% Lifetime Breast Cancer Risk 9.90% Personal Breast Cancer No Personal Ovarian Cancer No Treatments None Family Cancers Grandmother-paternal with breast cancer at age 60. LOCATION: [facility] BREAST COMPOSITION: There are scattered areas of fibroglandular density. FINDINGS: DIAGNOSTIC CATEGORY 1--NEGATIVE. Scattered benign-appearing calcifications are present. Scattered benign-appearing lymph nodes are present. RIGHT BREAST: No significant suspicious finding. LEFT BREAST: No significant suspicious finding. RECOMMENDATIONS: ROUTINE MAMMOGRAM AND CLINICAL EVALUATION IN 12 MONTHS. PLEASE NOTE: A NORMAL MAMMOGRAM DOES NOT EXCLUDE THE POSSIBILITY OF BREAST CANCER. A CLINICALLY SUSPICIOUS PALPABLE LUMP SHOULD BE BIOPSIED. Dictated by: Gonzalez Osman MD on 03/22/2024 at 14:41 Approved by: Gonzalez Osman MD on 03/22/2024 at 14:42 Dictated By: Gonzalez Osman M.D. Signed By: 03/22/24 1443 DD/ 144 TD/TT: Pail Tester: Procedure Note Radiology, Radiologist, - 03/22/2024 [place] [address] Mammography Report Signed Patient: GEMMA MALDONADO LMR#: [id number] : 1985Acct:[id number] Age/Sex: 38 / FADM Date: 03/22/24 Loc: MAMMO Attending Dr: Allison Mendez NP Ordering Physician: Allison Mendezesults: Date of Service: 03/22/24Follow Up: Procedure(s): MM tomosynthesis screening BI Accession Number(s): [id number] cc: Allison Mendez NP Patient Name: GEMMA MALDONADO MR#: [id number] : 1985 Exam Date: 03/22/2024 Ordering Doctor: LAURO Mendez EMBOSSING CLERK RADIOLOGY REPORT PROCEDURE: MM TOMOSYNTHESIS SCREENING BI COMPARISON: None. INDICATIONS: Screening Calculator Name NCI Breast Cancer Risk Assessment Tool 5 Year Breast Cancer Risk 0.50% Lifetime Breast Cancer Risk 9.90% Personal Breast Cancer No Personal Ovarian Cancer No Treatments None Family Cancers Grandmother-paternal with breast cancer at age 60. LOCATION: [facility] BREAST COMPOSITION: There are scattered areas of fibroglandulardensity. FINDINGS: DIAGNOSTIC CATEGORY 1--NEGATIVE. Scattered benign-appearing calcifications are present. Scattered benign-appearing lymph nodes are present. RIGHT BREAST: No significant suspicious finding. LEFT BREAST: No significant suspicious finding. RECOMMENDATIONS: ROUTINE MAMMOGRAM AND CLINICAL EVALUATION IN 12 MONTHS. PLEASE NOTE: A NORMAL MAMMOGRAM DOES NOT EXCLUDE THE POSSIBILITY OFBREAST CANCER. A CLINICALLY SUSPICIOUS PALPABLE LUMP SHOULD BE BIOPSIED. Dictated by: Gonzalez Osman MD on 03/22/2024 at 14:41 Approved by: Gonzalez Osman MD on 03/22/2024 at 14:42 Dictated By: Gonzalez Osman M.D. Signed By:03/22/24 1443 DD/ 1442 TD/TT: Pail Tester: us Allison Mendez NP [facility] Final Result documented in this encounter Visit Diagnoses Not on filedocumented in this encounter Care Teams Outdoor Pursuits Instructor Relationship Specialty Start Date End Date Leonard Aviles MD PCP - General Family Medicine 07/30/23 Allison Mendez NP [address] [place] [address] PCP - [facility] 02/09/24 Allison Mendez NP Nurse Practitioner Family Medicine 07/30/23 Betsey Lew DO [address] [place] [address] Referring Physician Neurology 07/13/24 documented as of this encounter
--- OUTSIDE RECORDS SUMMARY | 2025-02-23 07:42 | XMS_ITS | Encounter Summary ---
Author Organization [facility] Address [address] [facility] [place] [address] Care Team Providers Care Bottoming Room Supervisor Name Role Phone Leonard Aviles MD Primary Care Provider [phone] Allison Mendez SNOWBLOWER MECHANIC Unavailable [phone] Allison Mendez NP Unavailable [phone] Betsey Lew DO Unavailable [phone] Encounter Details Date Type Department Care Team (Late st Contact Info) Description 03/22/2024 Orders Only [facility] [address] [place] [address] Allison Mendez NP [address] [facility] [place] [address] Social History Tobacco Use Types Packs/Day Years [...] you attend [facility] or presybeterian services? Never 07/29/2023 Do you belong to any clubs o r organizations such as episcopal groups, unions, fraternal or athletic groups, or [...] medical care, and heating? Somewhat hard 07/29/2023 [facility]at ional [facility] - Occupational Stress Questionnaire Answer Date Recorded [...] Procedure Name Priority Date/Time Associated Diagnosis Comments BI MAMMOGRAM SCREENING TOMOSYNTHESIS BILATERAL Routine 03/22/2024 2:48 PM EST documented in this encounter Results * Bilateral screening mammogram with tomosynthesis (03/22/2024 2:48 PM EST) Anatomical Region Laterality Modality Breast Bilateral Mammography Allison Mendez SNOWBLOWER MECHANIC IMG BI PROCEDURES Final Result documented in this encounter Visit Diagnoses Not on filedocumented in this encounter Care Teams Bottoming Room Supervisor Relationship Specialty Start Date End Date Leonard Aviles MD PCP - General Family Medicine 07/30/23 Allison Mendez NP [address] [place] [address] PCP - [facility] 02/09/24 Allison Mendez NP Nurse Practitioner Family Medicine 07/30/23 Betsey Lew DO [address] [place] [address] Referring Physician Neurology 07/13/24 documented as of this encounter
--- OUTSIDE RECORDS SUMMARY | 2025-02-23 07:42 | XMS_ITS | Encounter Summary ---
Author Organization [facility] Address [address] [facility] [place] [address] Care Team Providers Care Computer Hardware Developer Name Role Phone Leonard Aviles MD Primary Care Provider [phone] Allison Mendez WO[place]S WARDEN Unavailable [phone] Allison Mendez NP Unavailable [phone] Betsey Lew DO Unavailable [phone] Encounter Details Date Type Department Care Team (Late st Contact Info) Description 12/01/2023 Orders Only [facility] [address] [place] [address] Allison Mendez NP [address] [facility] [place] [address] Social History Tobacco Use Types Packs/Day Years [...] week 07/29/2023 How often do you attend [facility] or synagogue services? Never 07/29/2023 Do you belong to any clubs o r organizations such as yazdanism groups, unions, fraternal or athletic groups, or [...] medical care, and heating? Somewhat hard 07/29/2023 [facility] of Occupat ional [facility] - Occupational Stress Questionnaire Answer Date [...] place to sleep or slept in a detention (including now)? No 07/29/2023 Comments Unknown Sex and Gender Information Value Date Recorded Sex Assigned at Not on file Legal Sex Female 9:43 PM EDT Gender Identity Not on file Sexual Orientation Not on file documented as of this encounter Plan of Treatment Not on file documented as of this encounter Procedures Procedure Name Priority Date/Time Associated Diagnosis Comments XR CHEST 1 VIEW Routine 12/01/2023 10:39 AM EDT documented in this encounter Results * XR chest 1 view (12/01/2023 10:39 AM EDT) Anatomical Region Laterality Modality Chest Radiographic Antonia ging Allison Mendez WO[place]S WARDEN IMG XR PROCEDURES Final Result documented in this encounter Visit Diagnoses Not on filedocumented in this encounter Care Teams Computer Hardware Developer Relationship Specialty Start Date End Date Leonard Aviles MD PCP - General Family Medicine 07/30/23 Allison Mendez NP [address] [facility] [place] [address] PCP - [facility] 02/09/24 Allison Mendez NP Nurse Practitioner Family Medicine 07/30/23 Betsey Lew DO [address] [place] [address] Referring Physician Neurology 07/13/24 documented as of this encounter
--- OUTSIDE RECORDS SUMMARY | 2025-02-23 07:42 | XMS_ITS | Encounter Summary ---
Author Organization [facility] Address [facility] [place] [id number] [address] [place] [address] Care Team Providers Care Computer Tape Librarian Name Role Phone Heidimichellephamconchita Allison Pam PAPER SLITTER-GLOVE TAGGER Primary Care Provider Reason for Visit * Reason Onset Date Comments MR BRAIN IAC 02/10/2025 Encounter Details Date Type Department Care Team (Late st Contact Info) Description 02/10/2025 Telephone [facility] Neurology, A Department of [facility] [address] [facility] [address] [place] [address] Jose Enrique Toussaint MR BRAIN IAC Social History Tobacco Use Types Packs/Day Years [...] encounter Miscellaneous Notes * Telephone Encounter - Jose Enrique Toussaint - 02/10/2025 11:25 AM EDT Janet Jiang, stated patient is scheduled for MR BRAIN IAC WWO CONTRAST 02/17/25. Insurance is asking for additional information or a [id number]. [facility]: [phone] Trackin * Telephone Encounter - Lauro Osuna PA-C - 02/10/2025 11:25 AM EDT Paresthesias, Dizziness, White Matter Changes on previous Brain MRI; suspect Demyelinating Disease. - [facility] * Telephone Encounter - Naomie Espinoza RN - 02/10/2025 11:25 AM EDT RN contacted Janet and spoke to [place]. Testing was approved. Nothing further needed. documented in this encounter Plan of Treatment Upcoming Encounters Date Type Department Care Team (Late st Contact Info) Description 04/25/2025 10:00 AM EST Office Visit [facility] [place] [address] [place] [address] Lauro Osuna PA-C [address] [facility] [address] [place] [address] documented as of this encounter Visit Diagnoses Not on filedocumented in this encounter Additional Health Concerns Assessment Noted Time PHQ-9 Depression Total Score: 0 01/21/20 25 9:15 AM EDT documented as of this encounter Care Teams Computer Tape Librarian Relationship Specialty Start Date End Date Allison Mendez, PAPER SLITTER-GLOVE TAGGER PCP - General Nurse Practitioner 04/14/23 documented as of this encounter
--- OUTSIDE RECORDS SUMMARY | 2025-02-23 07:42 | XMS_ITS | Encounter Summary ---
Author Organization [facility] Address [address] [place] [address] Care Team Providers Care Primer Powder Blender Wet Name Role Phone Unavailable Primary Care Provider Unavailabl e Source Comments In the event this information is protected by the Federal Confidentiality of Alcohol and Drug AbusePatient Records regulations: The Federal rules restrict any use of the information to criminally investigate or prosecute any alcohol or drug abuse patient.[facility] Encounter Details Date Type Department Care Team (Late st Contact Info) Description 03/10/2023 Patient Msg Rheumat[facility] [address] [facility] [place] [address] Jennifer Dewitt MD [address] [place] [address] LABS Social History Tobacco Use Types Packs/Day Years Used Date Smoking Tobacco: Never Smokeless Tobacco: Never PHQ-2 Answer Date Recorded PHQ-2 score 0 02/13/2023 Area Deprivation Index Answer Date Theodore rded National Score (1-100), lower number is lower ri sk 76 02/17/2023 State Score (1-10), lower number is lower risk 6 02/17/2023 Data from: https://www.neighborhoodatlas.medicine.[facility]/. Last address used for calculation [address] 02/17/2023 Comments Unknown Sex and Gender Information Value Date Recorded Sex Assigned at Not on file Legal Sex Female 10:49 AM EST Gender Identity Not on file Sexual Orientation Not on file documented as of this encounter Plan of Treatment Not on file documented as of this encounter Visit Diagnoses Not on filedocumented in this encounter
--- OUTSIDE RECORDS SUMMARY | 2025-02-23 07:42 | XMS_ITS | Encounter Summary ---
Author Organization [facility] Address [address] [facility] [place] [address] Care Team Providers Care Cathode Maker Name Role Phone Leonard Aviles MD Primary Care Provider [phone] Allison Mendez SKI PATROL OFFICER Unavailable [phone] Allsion Mendez NP Unavailable [phone] Betsey Lew DO Unavailable [phone] Encounter Details Date Type Department Care Team (Late st Contact Info) Description 03/10/2024 Clinisync Result Encounter [facility] External Department Unsolicited Allison Mendez NP [address] [place] [id number] Social History Tobacco Use Types Packs/Day Years [...] often do you attend chur ch or hoahaoism services? Never 07/29/2023 Do you belong to any clubs o r organizations such as evangelical groups, unions, fraternal or athletic groups, or [...] medical care, and heating? Somewhat hard 07/29/2023 [facility] [place] of Occupat ional Health - Occupational Stress [...] place to sleep or slept in a nursing home (including now)? No 07/29/2023 Comments Unknown Sex and Gender Information Value Date Recorded Sex Assigned at Not on file Legal Sex Female 9:43 PM EDT Gender Identity Not on file Sexual Orientation Not on file documented as of this encounter Plan of Treatment Not on file documented as of this encounter Procedures Procedure Name Priority Date/Time Associated Diagnosis Comments XR KNEE LAWRENCE 3V 03/10/2024 7:30 AM EDT documented in this encounter Results * XR KNEE LAWRENCE 3V (03/10/2024 7:30 AM EDT) Anatomical Region Laterality Modality Other 03/10/2024 7:30 AM EDT Narrative 03/10/2024 7:33 [place] [address] XRay Report Signed Patient: DENISHA MALDONADO MR#: [id number] : 1985 Acct:[id number] Age/Sex: 38 / F ADM Date: 03/09/24 Loc: RAD Attending Dr: Allison Mendez SKI PATROL OFFICER Ordering Physician: Allison Mendez NP Date of Service: 03/09/24 Procedure(s): XR knee LAWRENCE 3V Accession Number(s): [id number] cc: Allison Mendez NP [place] [id number] Patient Name: DENISHA MALDONADO MRN: [id number] date: 1985 Sex: F Assigned Patient Location: RAD Current Patient Location: Accession/Order Number: [id number] Exam Date: 03/09/2024 10:40 Report Date: 03/10/2024 07:30 At the request of: ALLISON MENDEZ Procedure: XR knee LAWRENCE 3V EXAMINATION: XR knee LAWRENCE 3V HISTORY: Bilateral Knee Arthritis COMPARISON: No relevant comparison available. FINDINGS: RIGHT FINDINGS: BONES: No acute fracture or dislocation. Mild degenerative changes with marginal osteophyte formation SOFT TISSUES: Negative. No visible soft tissue swelling. OTHER: Negative. LEFT FINDINGS: BONES: No acute fracture or dislocation. Mild degenerative changes with marginal osteophyte formation SOFT TISSUES: Negative. No visible soft tissue swelling. OTHER: Negative. XR/XR knee LAWRENCE 3V IMPRESSION: Mild bilateral osteoarthritis Electronically authenticated by: VERO ATKINS Date: 03/10/2024 07:30 Dictated By: Vero Atkins M.D. Signed By: 03/10/24732 DD/ 9 TD/TT: Detonator Assembler: Procedure Note Radiology, Radiologist, - 03/10/2024 [place] [address] XRay Report Signed Patient: DENISHA MALDONADO LMR#: [id number] : 1985Acct:[id number] Age/Sex: 38 / FADM Date: 03/09/24 Loc: RAD Attending Dr: Allison Mendez NP Ordering Physician: Allison Mendez NP Date of Service: 03/09/24 Procedure(s): XR knee LAWRENCE 3V Accession Number(s): [id number] cc: Allison Mendez NP [address] [place] [address] Patient Name: DENISHA MALDONADO MRN: [facility]:[id number] date: 1985 Sex: F Assigned Patient Location: [facility] Current Patient Location: Accession/Order Number: [id number] Exam Date: 03/09/2024 10:40 Report Date: 03/10/2024 07:30 At the request of: ALLISON MENDEZ Procedure: XR knee LAWRENCE 3V EXAMINATION: XR knee LAWRENCE 3V HISTORY: Bilateral Knee Arthritis COMPARISON: No relevant comparison available. FINDINGS: RIGHT FINDINGS: BONES: No acute fracture or dislocation. Mild degenerative changes with marginal osteophyte formation SOFT TISSUES: Negative. No visible soft tissue swelling. OTHER: Negative. LEFT FINDINGS: BONES: No acute fracture or dislocation. Mild degenerative changes with marginal osteophyte formation SOFT TISSUES: Negative. No visible soft tissue swelling. OTHER: Negative. XR/XR knee LAWRENCE 3V IMPRESSION: Mild bilateral osteoarthritis Electronically authenticated by: VERO ATKINS Date: 03/10/2024 07:30 Dictated By: Vreo Atkins M.D. Signed By:03/10/24732 DD/ 9 TD/TT: Detonator Assembler: us Allison Mendez NP [facility] Final Result documented in this encounter Visit Diagnoses Not on filedocumented in this encounter Care Teams Cathode Maker Relationship Specialty Start Date End Date Leonard Aviles MD PCP - General Family Medicine 07/30/23 Allison Mendez NP [address] [place] [address] PCP - [facility] 02/09/24 Allison Mendez NP Nurse Practitioner Family Medicine 07/30/23 Betsey Lew DO [address] [place] [address] Referring Physician Neurology 07/13/24 documented as of this encounter
--- OUTSIDE RECORDS SUMMARY | 2025-02-23 07:42 | XMS_ITS | Encounter Summary ---
Author Organization [employer] Address [facility] [id number] [address] [place] [address] Care Team Providers Care Pneumatic Tool Repairer Name Role Phone Allison Mendez Pam CERAMIC ARTIST-ARMATURE WINDER HELPER REPAIR Primary Care Provider Encounter Details Date Type Department Care Team (Latest Contact Info) Description 02/16/2025 Travel Social History Tobacco Use Types Packs/Day Years [...] AM EST Office Visit [facility] [place] [address] [place] [address] Lauro Osuna, JANELLE [address] [facility] [place] [address] [place] [address] documented as of this encounter Visit Diagnoses Not on filedocumented in this encounter Additional Health Concerns Assessment Noted Time PHQ-9 Depression Total Score: 0 01/21/20 25 9:15 AM EDT documented as of this encounter Care Teams Pneumatic Tool Repairer Relationship Specialty Start Date End Date Allison Mendez, CERAMIC ARTIST-ARMATURE WINDER HELPER REPAIR PCP - General Nurse Practitioner 04/14/23 documented as of this encounter
--- OUTSIDE RECORDS SUMMARY | 2025-02-23 07:42 | XMS_ITS | Encounter Summary ---
Author Organization [facility] Address [address] [place] [address] Phone Care Team Providers Care Trade Marker Name Role Phone Allison Mendez APRN-NURSE REVIEWER Primary Care Provider Encounter Details Date Type Department Care Team ([facility] st Contact Info) Description 05/12/2022 Orders Only [facility] [address] [place] [address] Conversion, Onbase Social History Tobacco Use Types Packs/Day Years Used Date Smoking Tobacco: Never Assessed Comments Unknown Sex and Gender Information Value Date Recorded Sex Assigned at Not on file Legal Sex Female 11:16 AM EST Gender Identity Not on file Sexual Orientation Not on file documented as of this encounter Plan of Treatment Scheduled Orders Name Type Priority Associated Diagnoses Orde r Schedule OUTSIDE LAB SCAN Lab Ordered: 05/12/2022 documented as of this encounter Visit Diagnoses Not on filedocumented in this encounter Care Teams Trade Marker Relationship Specialty Start Date End Date Allison Mendez APRN-NURSE REVIEWER [address] [place] [address] PCP - General 10/09/20 documented as of this encounter
--- OUTSIDE RECORDS SUMMARY | 2025-02-23 07:42 | XMS_ITS | Encounter Summary ---
Author Organization [facility] tem Address [facility] [place] [id number] [address] [place] [address] Care Team Providers Care Director Agricultural Services Name Role Phone Heidimichellephamconchita Allison Pam CALHOUN-MAINTENANCE PLANNER Primary Care Provider Reason for Visit * Reason Onset Date Comments GENETICS 08/13/2021 CLERICAL Encounter Details Date Type Department Care Team (Late st Contact Info) Description 08/13/2021 Telephone [facility] - Medical Oncology [address] [place] [id number] Laureen Orantes, [facility] [address] [address] GENETICS (CLERICAL) Social History Tobacco Use Types Packs/Day Years Used Date Smoking Tobacco: Never Smokeless Tobacco: Never Alcohol Use Standard Drinks/Week Comments Not Currently 0 (1 standard drink = 0.6 oz pur e alcohol) Comments Unknown Sex and Gender Information Value Date Recorded Sex Assigned at Not on file Legal Sex Female 10:19 AM EST Gender Identity Not on file Sexual Orientation Not on file COVID-19 Exposure Response Date Recorded In the last 10 days, have yo u been in contact with someone who was confirmed or suspected to have Coronavirus/COVID-19? No / Unsure 07/29/2021 8:40 AM EDT documented as of this encounter Miscellaneous Notes * Telephone Encounter - Elizabeth Narvaez - 08/13/2021 3:26 PM EDT LVM on 08/13/2021 at 3:26 PM asking patient to return call to schedule genetics appointment. djo * Telephone Encounter - Elizabeth Narvaez - 08/13/2021 3:26 PM EDT 08/13/2021 at 3:36 PM PT RETURNED CALL & SCHEDULED ON 09/12/21 @ 8:00 AM IN [place] DJO * Telephone Encounter - Elizabeth Narvaez - 08/13/2021 3:26 PM EDT 09/10/2021 at 8:17 AM CALLED GUSTAVO @ [facility] I NOTICED PATIENTS APPT HAD BEEN CANCELLED AND WE HEARD NOTHING ABOUT IT. PER GUSTAVO PT CALLED [facility] TO CANCELL 2ND OP PATH CAME BACK NO CANCER AND PA TOLD PT INS WILL NOT COVER. PT STATED TO GUSTAVO THAT SHE WOULD STILL LIKE TO HAVE A GENETICS APPT. I WILL CALL PATIENT LATER TODAY FOR MORE INFO DJO * Telephone Encounter - Elizabeth Narvaez - 08/13/2021 3:26 PM EDT 09/10/2021 at 4:07 PM CALLED PT SHE IS INTERESTED IF GENETICS IS STILL A BENEFIT W/HER INS SHE HASA FAMILY HX OF BREAST, OVARIAN AND PANCREATIC CA WILL SEND TO COMPLIANCE AND CALL HER WHEN BACK DJO documented in this encounter Plan of Treatment Upcoming Encounters Date Type Department Care Team (Late st Contact Info) Description 04/25/2025 10:00 AM EST Office Visit [facility] [address] [place] [address] Lauro Osuna, PA-C [address], [address] [place] [address] documented as of this encounter Visit Diagnoses Not on filedocumented in this encounter Care Teams Director Agricultural Services Relationship Specialty Start Date End Date Allison Mendez APRN-MAINTENANCE PLANNER PCP - General Nurse Practitioner 04/14/23 documented as of this encounter
--- OUTSIDE RECORDS SUMMARY | 2025-02-23 07:42 | XMS_ITS | Patient Health Record ---
Author Organization [facility] Address [address] [place] [address] Care Team Providers Care Lawn Sprinkler Servicer Name Role Phone Giancarlo Froilan Primary Care Provider Danisha Peguero Unavailable Shirley Hernandez Unavailable [phone] Reason For Referral No Information Medications Medication SIG (Take, Route, Fr equency, Duration) Notes Start Date End Date Status Losartan Potassium A ctive Victoza Active Verapamil HCl ER Act nathaly Turmeric Active Sertraline HCl Activ e metFORMIN HCl Active busPIRone HCl Active Meclizine HCl Active Aspirin Active Cyclobenzaprine HCl Active Levothyroxine Sodium Active Encounters Encounter Location Date Provider Diagnosis [address] [address] 02/22/2025 Danisha Bosch Dental caries on pit and fissure surface penetrating into dentin K02.[address] [address] 08/18/2024 Shirley Hernandez Dental caries on pit and fissure surface penetrating into dentin K02.52 and Chronic gingivitis, plaque induced K05.10 Assessments Encounter Date Diagnosis (ICD Code) Assessment Notes Treatment Notes Treatment Clinical Notes Section Notes 08/18/2024 Dental caries on pit and fissure surface penetrating into dentin (ICD-10 - K02.52) 02/22/2025 Dental caries on pit and fissure surface penetrating into dentin (ICD-10 - K02.52) 08/18/2024 Chronic gingivitis, plaque induced (ICD-10 - K05.10) Plan Of Treatment Next Appt Details Provider Name:Lluvia Helton, 03/13/2025 08:30:00 AM, [address] [place], [address], Provider Name:Danisha Mckeonillo, 03/15/2025 01:00:00 PM, [address], [place], [address], Provider Name:Danisha Green Hiro, 07/07/2025 02:00:00 PM, [address], [place], [address], Provider Name:Danisha Mckeonillo, 07/19/2025 09:30:00 AM, [address], [place], [address], Provider Name:Danisha Mckeonillo, 07/20/2025 09:45:00 AM, [address] [place], [address], Insurance Providers Payer Name Payer Address Payer Phone Subscriber Number Group Number Insured Name Patient Relationship to Insured Coverage Start Date Coverage End Date [employer] [place] [employer] [address] [place] [address] [id number] DENISHA MALDONADO Self - patient is the insured 3 [employer] [facility] [address] [place] [address] [id number] DENISHA MALDONADO Self - patient is the insured 3 [employer] [address] [address] [place] [address] [id number] DENISHA MALDONADO Self - patient is the insured 3 [employer] [facility] [address] [place] [address] [phone] [id number] DENISHA MALDONADO Self - patient is the insured 3
--- OUTSIDE RECORDS SUMMARY | 2025-02-23 07:42 | XMS_ITS | Encounter Summary ---
Author Organization [facility] Address [address] [place] [address] Care Team Providers Care Locksmith Apprentice Name Role Phone Leonard Aviles MD Primary Care Provider [phone] Allison Mendez BLOWER BLAST FURNACE Unavailable [phone] Allison Mendez NP Unavailable [phone] Betsey Lew DO Unavailable [phone] Encounter Details Date Type Department Care Team (Late st Contact Info) Description 12/03/2023 Clinisync Result Encounter [facility] External Department Unsolicited Allison Mendez NP [address] [place] [id number] Social History Tobacco Use Types Packs/Day Years [...] often do you attend chur ch or jain services? Never 07/29/2023 Do you belong to any clubs o r organizations such as hindu groups, unions, fraternal or athletic groups, or [...] medical care, and heating? Somewhat hard 07/29/2023 [facility]over of Occupat ional Health - Occupational Stress [...] place to sleep or slept in a longterm (including now)? No 07/29/2023 Comments Unknown Sex and Gender Information Value Date Recorded Sex Assigned at Not on file Legal Sex Female 9:43 PM EDT Gender Identity Not on file Sexual Orientation Not on file documented as of this encounter Plan of Treatment Not on file documented as of this encounter Procedures Procedure Name Priority Date/Time Associated Diagnosis Comments US RIGHT UPPER QUADRANT 12/03/2023 7:59 AM EDT documented in this encounter Results * US RIGHT UPPER QUADRANT (12/03/2023 7:59 AM EDT) Anatomical Region Laterality Modality Other 12/03/2023 7:59 AM EDT Narrative 12/03/2023 8:02 [place] [address] Ultrasound Report Signed Patient: DENISHA MALDONADO MR#: [id number] : 1985 Acct:[id number] Age/Sex: 37 / F ADM Date: 12/03/23 Loc: US Attending Dr: Allison Mendez NP Ordering Physician: Allison Mendez NP Date of Service: 12/03/23 Procedure(s): US right upper quadrant Accession Number(s): [id number] cc: Allison Mendez NP [address] [address] Patient Name: DENISHA MALDONADO MRN: [id number] date: 1985 Sex: F Assigned Patient Location: US Current Patient Location: US Accession/Order Number: [id number] Exam Date: 12/03/2023 07:08 Report Date: 12/03/2023 07:59 At the request of: ALLISON MENDEZ Procedure: US right upper quadrant EXAM: US right upper quadrant HISTORY: Elevated alkaline phosphatase level R74.8 COMPARISON: None. TECHNIQUE: Grayscale, color and Doppler FINDINGS: The liver is normal in size, contour and echotexture measuring 18.3 cm in length. No focal hepatic mass. Hepatopedal flow in the main portal vein. The gallbladder is normal in size. The wall measures 1.3 mm. Negative sonographic Cabral sign. The common bile duct measures 2 mm. Visualized pancreas is normal The right kidney is normal measuring 11.0 x 5.2 x 4.4 cm No ascites US/US right upper quadrant IMPRESSION: No acute abnormality Electronically authenticated by: VERO ATKINS Date: 12/03/2023 07:59 Dictated By: Vero Atkins M.D. Signed By: 12/03/23 0802 DD/ 0759 TD/TT: Radiology Asst: Procedure Note Radiology, Radiologist, MD - 12/03/2023 [place] [address] Ultrasound Report Signed Patient: DENISHA MALDONADO LMR#: [id number] : 1985Acct:[id number] Age/Sex: 37 / FADM Date: 12/03/23 Loc: US Attending Dr: Allison Mendez NP Ordering Physician: Allison Mendez NP Date of Service: 12/03/23 Procedure(s): US right upper quadrant Accession Number(s): [id number] cc: Allison Mendez NP [place] [id number] Patient Name: DENISHA MALDONADO MRN: [id number] date: 1985 Sex: F Assigned Patient Location: US Current Patient Location: US Accession/Order Number: [id number] Exam Date: 12/03/2023 07:08 Report Date: 12/03/2023 07:59 At the request of: ALLISON MENDEZ Procedure: US right upper quadrant EXAM: US right upper quadrant HISTORY: Elevated alkaline phosphatase level R74.8 COMPARISON: None. TECHNIQUE: Grayscale, color and Doppler FINDINGS: The liver is normal in size, contour and echotexture measuring 18.3 cm in length. No focal hepatic mass. Hepatopedal flow in the main portal vein. The gallbladder is normal in size. The wall measures 1.3 mm. Negative sonographic Cabral sign. The common bile duct measures 2 mm. Visualized pancreas is normal The right kidney is normal measuring 11.0 x 5.2 x 4.4 cm No ascites US/US right upper quadrant IMPRESSION: No acute abnormality Electronically authenticated by: VERO ATKINS Date: 12/03/2023 07:59 Dictated By: Vero Atkins M.D. Signed By:12/03/23 0802 DD/ 0759 TD/TT: Radiology Asst: us Allison Mendez NP [facility] Final Result documented in this encounter Visit Diagnoses Not on filedocumented in this encounter Care Teams Locksmith Apprentice Relationship Specialty Start Date End Date Leonard Aviles MD PCP - General Family Medicine 07/30/23 Allison Mendez NP [address] [place] [address] PCP - [facility] 02/09/24 Allison Mendez NP Nurse Practitioner Family Medicine 07/30/23 Betsey Lew DO [address] [place] [address] Referring Physician Neurology 07/13/24 documented as of this encounter
--- OUTSIDE RECORDS SUMMARY | 2025-02-23 07:43 | XMS_ITS | Clinical Summary ---
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 Hydrochlorothiazide Low 07/29/2021 Other Reaction(s): Unknown Medications ibuprofen (IBU) 800 MG tablet Take 800 mg by mouth every 8 (eight) hours if needed for mild pain Active aspirin 81 MG EC tablet Take 81 mg by mouth Daily Active baclofen (Lioresal) 10 MG tablet Take 10 mg by mouth 3 (three) times a day as needed 4 Active cyanocobalamin (Vitamin B-12) 1000 MCG tablet Take 1,000 mcg by mouth Daily Active diclofenac sodium 1 % gel Apply 4 g topically in the morning and 4 g at noon and 4 g in the evening and 4 g before bedtime. Active triamcinolone (Nasacort) 55 MCG/ACT nasal inhaler Administer 2 sprays into each nostril Daily Active cholecalciferol (Vitamin D-3) 50 MCG (1999 UT) capsule Take 2,000 Units by mouth Daily 5 Active albuterol HFA 90 mcg/act inhalerIndications :Wheezing Inhale 2 puffs every 6 (six) hours if needed for shortness of breath or wheezing 18 g 5 Active atorvastatin (Lipitor) 10 MG tabletIndications: Mixed hyperlipidemia Take 1 tablet (10 mg) by mouth at bedtime 90 tablet 1 5 Active busPIRone (Buspar) 10 MG tabletIndications: Panic attack Take 1 tablet (10 mg) by mouth every 8 (eight) hours if needed (anxiety) 270 tablet 1 5 Active levothyroxine (Synthroid, Levoxyl) 150 MCG tabletIndications: Hypothyroidism (acquired) Take 1 tablet (150 mcg) by mouth in the morning. Take before meals. 90 tablet 1 5 Active losartan (Cozaar) 100 MG tabletIndications: Primary hypertension Take 1 tablet (100 mg) by mouth Daily 90 tablet 1 5 Active metFORMIN (Glucophage) 1000 MG tabletIndications: Type 2 diabetes mellitus without complication, without long-term current use of insulin (HCC) Take 1 tablet (1,000 mg) by mouth in the morning. Take with meals. 90 tablet 1 5 Active verapamil ER (Verelan) 180 MG 24 hr capsuleIndications :Tachycardia Take 1 capsule (180 mg) by mouth Daily 90 capsule 1 5 Active carvedilol (Coreg) 3.125 MG tabletIndications: Primary hypertension Take 1 tablet (3.125 mg) by mouth in the morning and 1 tablet (3.125 mg) in the evening. Take with meals. 60 tablet 1 5 Active FLUoxetine (PROzac) 20 MG capsuleIndications :Panic attack Take 1 capsule (20 mg) by mouth Daily 90 capsule 1 5 025 Active Active Problems Problem Noted Date Diagnosed Date Bronchitis 09/29/2024 Assessment & Plan (09/29/2024 9:23 AM EDT): Fluids, rest If not better go to ER Wheezing 09/29/2024 Strain of right biceps muscle 07/05/2024 Assessment & Plan (07/05/2024 10:10 AM EST): Kaykay many years ago Has now had recurrence thinks may be related to using her cane and holding her puppy No imaging at this time, kaykay wax and wane will monitor for now per pt request, told her if worsens contact office Morbid (severe) obesity due to excess calories 0 05/24/2024 Assessment & Plan (12/21/2024 4:57 AM EDT): Discussed with patient their BMI (actual, verses recommended). We have also discussed lifestyle modifications: attempts to perform physical activity as chronic conditions allow, also to monitor dietary intake: increasing protein/fruits/veggies and lowering carb intake (unless contraindicated). Limit sodas, juices, and sugary drinks. Also discussed oral medications that can be utilized for weight loss, as well as surgical options for weight loss. Insurance is not covering any GLP 1 for her to utilize Assessment & Plan (11/09/2024 6:05 AM EDT): Discussed with patient their BMI (actual, verses recommended). We have also discussed lifestyle modifications: attempts to perform physical activity as chronic conditions allow, also to monitor dietary intake: increasing protein/fruits/veggies and lowering carb intake (unless contraindicated). Limit sodas, juices, and sugary drinks. Also discussed oral medications that can be utilized for weight loss, as well as surgical options for weight loss. Insurance is not covering any GLP 1 for her to utilize Assessment & Plan (09/29/2024 6:14 AM EDT): Discussed with patient their BMI (actual, verses recommended). We have also discussed lifestyle modifications: attempts to perform physical activity as chronic conditions allow, also to monitor dietary intake: increasing protein/fruits/veggies and lowering carb intake (unless contraindicated). Limit sodas, juices, and sugary drinks. Also discussed oral medications that can be utilized for weight loss, as well as surgical options for weight loss. Insurance is not covering any GLP 1 for her to utilize Assessment & Plan (07/05/2024 6:25 AM EST): Discussed with patient their BMI (actual, verses recommended). We have also discussed lifestyle modifications: attempts to perform physical activity as chronic conditions allow, also to monitor dietary intake: increasing protein/fruits/veggies and lowering carb intake (unless contraindicated). Limit sodas, juices, and sugary drinks. Also discussed oral medications that can be utilized for weight loss, as well as surgical options for weight loss. Insurance is not covering any GLP 1 for her to utilize Assessment & Plan (05/24/2024 6:24 AM EST): Discussed with patient their BMI (actual, verses recommended). We have also discussed lifestyle modifications: attempts to perform physical activity as chronic conditions allow, also to monitor dietary intake: increasing protein/fruits/veggies and lowering carb intake (unless contraindicated). Limit sodas, juices, and sugary drinks. Also discussed oral medications that can be utilized for weight loss, as well as surgical options for weight loss. Chronic otitis externa of left ear 04/12/2024 Encounter for screening mamm ogram for malignant neoplasm of breast 03/09/2024 Arthritis of both knees 03/09/2024 Assessment & Plan (03/09/2024 9:36 AM EDT): Cont NSAID, check xrays and go from there Fibromyalgia 03/09/2024 Assessment & Plan (05/24/2024 6:23 AM EST): Many vague symptoms, could not tolerate duloxetine Will have neuro see her again Assessment & Plan (04/12/2024 4:44 PM EST): Last appt started duloxetine, could not tolerate it I would like to reach out to Neurology, talk with them about some of her vague symptoms with balance, as well as dizziness etc Assessment & Plan (03/09/2024 9:47 AM EDT): Will start duloxetine at 30mg daily Fu in 4 weeks Malignant neoplasm of endometrium 12/07/2023 Assessment & Plan (05/24/2024 6:21 AM EST): Had hysterectomy 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 Assessment & Plan (12/09/2023 7:42 AM EDT): Continue fu per [employer]BLE SUPER[employer]OR Elevated alkaline phosphatase level 10/23/2023 Assessment & Plan (12/09/2023 3:59 PM EDT): Labs and US noted Mixed hyperlipidemia 09/07/2023 Primary hypertension 08/10/2023 Assessment & Plan (12/21/2024 10:37 AM EDT): Please check blood pressure daily and record DASH diet Limit caffeine Take medication as directed Contact office if chest pain, pressure, dizziness, shortness of breath, swelling legs Recommend slow position changes Current meds: verapamil, losartan, Never started the carvedilol, will resend in Assessment & Plan (11/09/2024 6:05 AM EDT): Please check blood pressure daily and record DASH diet Limit caffeine Take medication as directed Contact office if chest pain, pressure, dizziness, shortness of breath, swelling legs Recommend slow position changes Current meds: verapamil, losartan Assessment & Plan (09/29/2024 9:15 AM EDT): Please check blood pressure daily and record DASH diet Limit caffeine Take medication as directed Contact office if chest pain, pressure, dizziness, shortness of breath, swelling legs Recommend slow position changes Current meds: verapamil, losartan Likely a bit elevated today d/t being sick Assessment & Plan (07/05/2024 6:24 AM EST): Please check blood pressure daily and record DASH diet Limit caffeine Take medication as directed Contact office if chest pain, pressure, dizziness, shortness of breath, swelling legs Recommend slow position changes Current meds: verapamil, ;losartan Last visit increased losartan dose Assessment & Plan (05/24/2024 10:06 AM EST): Please check blood pressure daily and record DASH diet Limit caffeine Take medication as directed Contact office if chest pain, pressure, dizziness, shortness of breath, swelling legs Recommend slow position changes Current meds: verapamil, ;losartan Increase dose of losartan to 100mg daily Fu in 6 weeks Assessment & Plan (04/12/2024 6:47 AM EST): Please check blood pressure daily and record DASH diet Limit caffeine Take medication as directed Contact office if chest pain, pressure, dizziness, shortness of breath, swelling legs Recommend slow position changes Current meds: verapamil, ;losartan Assessment & Plan (03/09/2024 9:33 AM EDT): Restart cardizem and keep losartan as well Please check blood pressure daily and record DASH diet Limit caffeine Take medication as directed Contact office if chest pain, pressure, dizziness, shortness of breath, swelling legs Recommend slow position changes Assessment & Plan (10/13/2023 4:10 PM EDT): Elevated yesterday, today normal, at this time no changes in med doses Fu 6 weeks Dyspnea 08/03/2023 Systolic murmur 08/03/2023 Vertigo 08/03/2023 Assessment & Plan (04/12/2024 4:45 PM EST): Pt is going to reach out to neurology regarding her dizziness etc C/o fatigue, muscle pain as well Fatigue 08/03/2023 Assessment & Plan (07/05/2024 6:30 AM EST): Check labs Lateral epicondylitis of left elbow 07/30/2023 Assessment & Plan (10/13/2023 4:11 PM EDT): No NSAIDs d/t blood pressure reads recently No steroids d/t diabetes if we can avoid Could not tolerate brace made it worse Order for OT, pt to schedule this at [facility] Fu in 6 weeks Assessment & Plan (07/30/2023 10:13 AM EDT): OTC voltaren gel Tennis elbow brace, and fu if not better Chronic bilateral thoracic back pain 07/30/2023 Assessment & Plan (07/30/2023 10:14 AM EDT): Has had plain films in 2021, facet OA No help with nsaids and muscle relaxers or PT Will refer to Pain Mgmt Hypothyroidism (acquired) 07/20/2023 Assessment & Plan (07/05/2024 6:29 AM EST): Currently taking levothyroxine at 150mcg daily Check labs yearly and prn change in symptoms or change in dose Assessment & Plan (05/24/2024 6:23 AM EST): Currently taking levothyroxine at 150mcg daily Check labs yearly and prn change in symptoms or change in dose Assessment & Plan (04/12/2024 6:49 AM EST): Currently taking levothyroxine at 150mcg daily Check labs yearly and prn change in symptoms or change in dose Assessment & Plan (07/30/2023 10:10 AM EDT): Continue current meds, no changes in doses Panic attack 05/27/2023 Overview (05/24/2024): In the past: sertraline, duloxetine Assessment & Plan (12/21/2024 10:38 AM EDT): Does report increase in anxiety when going out in public as well as appts Cont with buspar will increase fluoxetine to 20mg daily Assessment & Plan (05/24/2024 10:01 AM EST): On fluoxetine dose is 10 mg and wants to stay on that dose Assessment & Plan (04/12/2024 1:35 PM EST): Last visit started duloxetine, could not tolerate this Has trialed : sertraline, duloxetine Will trial fluoxetine at 10mg daily, start low d/t sensitivity w meds Take medication only as directed. This medication will take approximately 4-6 weeks to become effective. If any suicidal thoughts, thoughts of hurting others, or hallucinations contact the office or proceed to the Emergency Room for mental health evaluation. Medication may cause dry mouth, dizziness, and in some cases worsening in depression symptoms. Please contact the office if these occur. Assessment & Plan (03/09/2024 9:49 AM EDT): Stop sertaline, trial duloxetine Take medication only as directed. This medication will take approximately 4-6 weeks to become effective. If any suicidal thoughts, thoughts of hurting others, or hallucinations contact the office or proceed to the Emergency Room for mental health evaluation. Medication may cause dry mouth, dizziness, and in some cases worsening in depression symptoms. Please contact the office if these occur. Fu in 4 weeks Assessment & Plan (12/09/2023 3:59 PM EDT): Unsure if her symptoms had anything to do with this Tachycardia 05/25/2023 Assessment & Plan (05/24/2024 6:21 AM EST): Is taking verapamil for this Assessment & Plan (03/09/2024 9:32 AM EDT): Restart cardizem Vitamin D deficiency 05/21/2023 Assessment & Plan (03/09/2024 9:37 AM EDT): Cont supplement Herpes zoster without complication 04/30/2023 Assessment & Plan (04/30/2023 12:45 PM EST): No long lasting PHN symptoms Other post infection and related fatigue syndrom es 04/30/2023 Assessment & Plan (04/30/2023 12:46 PM EST): Secondary from COVID, no acute dyspnea or chest pain noted Type 2 diabetes mellitus wit hout complication, without long-term current use of insulin 04/29/2023 Assessment & Plan (11/09/2024 9:42 AM EDT): Check blood sugars daily, notify if <70 or >200. Take medications (pills or insulin) as directed. Monitor for s/s of hypoglycemia (sweaty, dizziness, nausea, vomiting, or shakiness). Watch for increase in thirst, urination, or appetite. Inspect feet frequently monitoring for open wounds , and also recommend yearly eye exam. Pt should attempt to remain as physically active as chronic conditions allow, as well as trying to follow a diet low in carbohydrates, and simple sugars. Current meds: asa, statin, arb, metformin, Did not tolerating rybelsus, did well on victoza as far as side effects, however supply chain issues make it difficult to use consistently A1c: 5.7% 11/09/24, 5.8% 07/05/24 Assessment & Plan (09/29/2024 6:15 AM EDT): Check blood sugars daily, notify if <70 or >200. Take medications (pills or insulin) as directed. Monitor for s/s of hypoglycemia (sweaty, dizziness, nausea, vomiting, or shakiness). Watch for increase in thirst, urination, or appetite. Inspect feet frequently monitoring for open wounds , and also recommend yearly eye exam. Pt should attempt to remain as physically active as chronic conditions allow, as well as trying to follow a diet low in carbohydrates, and simple sugars. Current meds: asa, statin, arb, metformin, Did not tolerating rybelsus, did well on victoza as far as side effects, however supply chain issues make it difficult to use consistently A1c: 5.8% 07/05/24 Assessment & Plan (07/05/2024 9:52 AM EST): Check blood sugars daily, notify if <70 or >200. Take medications (pills or insulin) as directed. Monitor for s/s of hypoglycemia (sweaty, dizziness, nausea, vomiting, or shakiness). Watch for increase in thirst, urination, or appetite. Inspect feet frequently monitoring for open wounds , and also recommend yearly eye exam. Pt should attempt to remain as physically active as chronic conditions allow, as well as trying to follow a diet low in carbohydrates, and simple sugars. Current meds: asa, statin, arb, metformin, Not tolerating rybelsus, did well on victoza as far as side effects, however supply chain issues make it difficult to use consistently, we will increase metformin to 1000mg daily A1c: 5.8% Assessment & Plan (05/24/2024 9:53 AM EST): Check blood sugars daily, notify if <70 or >200. Take medications (pills or insulin) as directed. Monitor for s/s of hypoglycemia (sweaty, dizziness, nausea, vomiting, or shakiness). Watch for increase in thirst, urination, or appetite. Inspect feet frequently monitoring for open wounds , and also recommend yearly eye exam. Pt should attempt to remain as physically active as chronic conditions allow, as well as trying to follow a diet low in carbohydrates, and simple sugars. Current meds: asa, statin, arb, metformin, Not tolerating rybelsus, did well on victoza as far as side effects, however supply chain issues make it difficult to use consistently, we will increase metformin to 1000mg daily A1c: 5.4 on 03/09/24 Assessment & Plan (04/28/2024 9:51 AM EST): Will sample Rybelsus 3mg daily, #1 sample 30 pills, lot # [id number], exp 07/2024 Assessment & Plan (04/12/2024 6:48 AM EST): Check blood sugars daily, notify if <70 or >200. Take medications (pills or insulin) as directed. Monitor for s/s of hypoglycemia (sweaty, dizziness, nausea, vomiting, or shakiness). Watch for increase in thirst, urination, or appetite. Inspect feet frequently monitoring for open wounds , and also recommend yearly eye exam. Pt should attempt to remain as physically active as chronic conditions allow, as well as trying to follow a diet low in carbohydrates, and simple sugars. Current meds: victoza, metformin, statin, asa Assessment & Plan (03/09/2024 9:49 AM EDT): Check blood sugars daily, notify if <70 or >200. Take medications (pills or insulin) as directed. Monitor for s/s of hypoglycemia (sweaty, dizziness, nausea, vomiting, or shakiness). Watch for increase in thirst, urination, or appetite. Inspect feet frequently monitoring for open wounds , and also recommend yearly eye exam. Pt should attempt to remain as physically active as chronic conditions allow, as well as trying to follow a diet low in carbohydrates, and simple sugars. A1c has good, but weight loss has stalled out, check A1c, consider changing injectables to possible mounjaro Assessment & Plan (12/09/2023 3:58 PM EDT): Has been out of [employer] working w insurance on an alternative Thus likely why weight is up as well Assessment & Plan (07/30/2023 10:11 AM EDT): Reviewed labs No changes in doses of meds Take medications (pills or insulin) as directed. Monitor for s/s of hypoglycemia (sweaty, dizziness, nausea, vomiting, or shakiness). Watch for increase in thirst, urination, or appetite. Inspect feet frequently monitoring for open wounds , and also recommend yearly eye exam. Pt should attempt to remain as physically active as chronic conditions allow, as well as trying to follow a diet low in carbohydrates, and simple sugars. Fu in 3 months Muscle spasm 04/20/2023 Family history of von Willebrand disease 023 Vestibular dizziness 10/17/2022 Vestibular disequilibrium involving both inner e ars 10/17/2022 Primary osteoarthritis 10/17/2022 Arthritis of right knee 10/17/2022 Internal derangement of right knee 10/17/2022 Difficulty walking 10/17/2022 Assessment & Plan (04/12/2024 4:46 PM EST): Uses cane at times Over the last 6-8 months multiple vague symptoms : wide spread pain , balance issues, fatigue, myalgias. Uncertain if all related to her lumbar spine issues as well as fibro ??MS?? Chronic rhinitis 10/17/2022 Anosmia 10/17/2022 Resolved Problems Problem Noted Date Diagnosed Date Resolved Date Body mass index (BMI) 45.0-49.9, adult 05/24/2024 07/05/2024 Type 2 diabetes mellitus wit hout complications 05/24/2024 05/24/2024 BMI 45.0-49.9, adult 04/11/2024 025 Heart murmur 07/30/2023 04/12/2024 Costochondritis 07/30/2023 07/30/2023 Obesity 04/30/2023 07/05/2024 Assessment & Plan (04/12/2024 6:48 AM EST): Discussed with patient their BMI (actual, verses recommended). We have also discussed lifestyle modifications: attempts to perform physical activity as chronic conditions allow, also to monitor dietary intake: increasing protein/fruits/veggies and lowering carb intake (unless contraindicated). Limit sodas, juices, and sugary drinks. Also discussed oral medications that can be utilized for weight loss, as well as surgical options for weight loss. Assessment & Plan (03/09/2024 9:37 AM EDT): At max dose on victoza Assessment & Plan (07/30/2023 10:12 AM EDT): Has lost a total of about 100 pounds so far, keep up the good work Endometrial hyperplasia with atypia 07/29/2021 05/24/2024 Encounters Date Type Department Care Team Description 12/21/2024 10:00 AM EDT Office Visit [facility] [address] [place] [address] Allison Mendez NP Primary hypertension (Primary Dx); Morbid (severe) obesity due to excess calories ([facility]-H[facility]); Panic attack 12/21/2024 Abstract [facility] [address] [place] [address] Allison Mendez NP 12/21/2024 Bamboo flowsheet [facility] [address] [place] [address] Allison Mendez NP from Last 3 Months Immunizations Immunization Administration Dates Next Due Pfizer Purple Cap SARS-CoV-2 Vaccination 021,08/20/2020 Family History Medical History Relation Name Comments Diabetes Mother Hypertension Mother Relation Name Status Comments Father Alive Mother Alive Social History Tobacco Use Types Packs/Day Years [...] often do you attend chur ch or taoism services? Never 07/29/2023 Do you belong to any clubs o r organizations such as sikh groups, unions, fraternal or athletic groups, or [...] medical care, and heating? Somewhat hard 07/29/2023 [facility] - Occupational Stress [...] place to sleep or slept in a retirement (including now)? No 07/29/2023 Comments Unknown Sex and Gender Information Value Date Recorded Sex Assigned at Not on file Legal Sex Female 9:43 PM EDT Gender Identity Not on file Sexual Orientation Not on file Last Filed Vital Signs Vital Sign Reading Time Taken Comments Blood Pressure 140/100 12/21/2024 9:58 AM EDT Pulse 86 12/21/2024 9:58 AM EDT Temperature 36.6 C (97.8 F) 12/21/2024 9:58 AM EDT Respiratory Rate 20 12/21/2024 9:58 AM EDT Oxygen Saturation 97% 12/21/2024 9:58 AM EDT Inhaled Oxygen Concentration - - Weight 136 kg (300 lb 12.8 oz) 12/21/2024 9:58 A M EDT Height 160 cm (5' 3 ) 07/13/2024 3:38 PM EST Body Mass Index 53.28 07/13/2024 3:38 PM EST Plan of Treatment Health Maintenance Due Date Last Done Comments HPV/Cotest 12/25/2013 Pap Smear 02/14/2024 02/13/2021 Influenza Vaccine (#1) 2025 Mammogram 03/22/2025 03/22/2024, 03/22/2024 Diabetes: Hemoglobin A1C 05/12/2025 07 025, 07/05/2024, 03/09/2024, Additional history exists Diabetes: Urine Protein Screening 07/05/2025 07/05/2024, 12/15/2022 Diabetes: Retinopathy Screening 08/09/2025 4, 01/08/2021 Cervical Cancer Screening Discontinued Procedures Procedure Name Priority Date/Time Associated Diagnosis Comments POCT GLYCOSYLATED HEMOGLOBIN (HGB A1C) Routine 11/09/2024 9:37 AM EDT Type 2 diabetes mellitus without complication, without long-term current use of insulin (HCC) MM TOMOSYNTHESIS SCREENING BI 03/22/2024 2:42 PM EST from Last 3 Months or Most Recently Relevant to Health Maintenance Results * POCT glycosylated hemoglobin (Hb A1C) docked device (11/09/2024 9:37 AM EDT) Hemoglobin A1C 5.7 Blood Venous blood specimen / Unknown 11/09/2024 9:37 AM EDT Allison Mendez NP POINT OF CARE TEST ENTER/EDIT O RDERABLES Final Result * MM TOMOSYNTHESIS SCREENING BI (03/22/2024 2:42 PM EST) Anatomical Region Laterality Modality Other 03/22/2024 2:42 PM EST Narrative 03/22/2024 2:43 [place] [address] Mammography Report Signed Patient: DENISHA MALDONADO MR#: [id number] : 1985 Acct:[id number] Age/Sex: 38 / F ADM Date: 03/22/24 Loc: MAMMO Attending Dr: Allison Mendez NP Ordering Physician: Allison Mendez NP Results: Date of Service: 03/22/24 Follow Up: Procedure(s): MM tomosynthesis screening BI Accession Number(s): [id number] cc: Allison Mendez NP Patient Name: DENISHA MALDONADO MR#: [id number] : 1985 Exam Date: 03/22/2024 Ordering Doctor: LAURO Mendez CNP RADIOLOGY REPORT PROCEDURE: MM TOMOSYNTHESIS SCREENING BI COMPARISON: None. INDICATIONS: Screening Calculator Name NCI Breast Cancer Risk Assessment Tool 5 Year Breast Cancer Risk 0.50% Lifetime Breast Cancer Risk 9.90% Personal Breast Cancer No Personal Ovarian Cancer No Treatments None Family Cancers Grandmother-paternal with breast cancer at age 60. LOCATION: [facility] BREAST COMPOSITION: There are scattered areas of [...] By: Gonzalez Osman M.D. Signed By: 03/22/24 144 DD/ 41 TD/TT: Cable Maintainer: Procedure Note Radiology, Radiologist, - 03/22/2024 [place] [address] Mammography Report Signed Patient: DENISHA MALDONADO LMR#: [id number] : 1985Acct:[id number] Age/Sex: 38 / FADM Date: 03/22/24 Loc: MAMMO Attending Dr: Allison Mendez NP Ordering Physician: Allison Mendez NPResults: Date of Service: 03/22/24Follow Up: Procedure(s): MM tomosynthesis screening BI Accession Number(s): [id number] cc: Allison Mendez NP Patient Name: DENISHA MALDONADO MR#: [id number] : 1985 Exam Date: 03/22/2024 Ordering Doctor: LAURO Mendez CNP RADIOLOGY REPORT PROCEDURE: MM TOMOSYNTHESIS SCREENING BI COMPARISON: None. INDICATIONS: Screening Calculator Name NCI Breast Cancer Risk Assessment Tool 5 Year Breast Cancer Risk 0.50% Lifetime Breast Cancer Risk 9.90% Personal Breast Cancer No Personal Ovarian Cancer No Treatments None Family Cancers Grandmother-paternal with breast cancer at age 60. LOCATION: [facility] BREAST COMPOSITION: There are scattered areas of [...] M.D. 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 02/09/24 Allison Mendez NP Nurse Practitioner Family Medicine 07/30/23 Betsey Lew DO [address] [place] [address] Referring Physician Neurology 07/13/24
--- OUTSIDE RECORDS SUMMARY | 2025-02-23 07:43 | XMS_ITS | CCD ---
Author Organization [facility] Care Team Providers Care Leg Assembler Name Role Phone Katrin LIMON, Dr. Chandler Pryor Attending Unavailable Katrin LIMON, Dr. Chandler Pryor Referring Unavailable Aichholz, . Allison Bullock Primary Care Unavailab le VanessaAllison Ara Unavailable Unavailable Unavailable AICHHOLZ, CRM CONSULTANT ALLISON Consulting Unavailable AICHHOLZ, CRM CONSULTANT ALLISON Attending Unavailable AICHHOLZ, CRM CONSULTANT ALLISON Primary Care Unavailable AICHHOLZ, CRM CONSULTANT ALLISON Admitting Unavailable AICHHOLZ, CRM CONSULTANT ALLISON Consulting Unavailable AICHHOLZ, CRM CONSULTANT ALLISON Attending Unavailable AICHHOLZ, CRM CONSULTANT ALLISON Primary Care Unavailable AICHHOLZ, CRM CONSULTANT ALLISON Admitting Unavailable AICHHOLZ, CRM CONSULTANT ALLISON Consulting Unavailable AICHHOLZ, CRM CONSULTANT ALLISON Attending Unavailable AICHHOLZ, CRM CONSULTANT ALLISON Admitting Unavailable AICHHOLZ, CRM CONSULTANT ALLISON Primary Care Unavailable JANE, MEI H Admitting Unavailable AICHHOLZ, CRM CONSULTANT ALLISON Primary Care Unavailable VERO WILSON Consulting Unavailable FAWWAD, MEI H Attending Unavailable FAWWAD, MEI H Consulting Unavailable AICHHOLZ, CRM CONSULTANT ALLISON Consulting Unavailable AICHHOLZ, CRM CONSULTANT ALLISON Attending Unavailable AICHHOLZ, CRM CONSULTANT ALLISON Admitting Unavailable AICHHOLZ, CRM CONSULTANT ALLISON Primary Care Unavailable DR ZINA GREGORY Consulting Unavailable JESSE HATCH Attending Unavailable JESSE HATCH Admitting Unavailable AICHHOLZ, CRM CONSULTANT ALLISON Primary Care Unavailable JESSE HATCH Consulting Unavailable AICHHOLZ, CRM CONSULTANT ALLISON Primary Care Unavailable JESSE HATCH Attending Unavailable JESSE HATCH Admitting Unavailable JESSE HATCH Consulting Unavailable Lali Patel Consulting Unavailable AICHHOLZ, CRM CONSULTANT ALLISON Primary Care Unavailable MILLY DR VERO De Oliveira Consulting Unavailable PAY ., DR PONCE Attending Unavailable PAY ., DR PONCE Admitting Unavailable PAY ., DR PONCE Consulting Unavailable AICHHOLZ, CRM CONSULTANT ALLISON Admitting Unavailable AICHHOLZ, CRM CONSULTANT ALLISON Attending Unavailable AICHHOLZ, CRM CONSULTANT ALLISON Primary Care Unavailable AICHHOLZ, CRM CONSULTANT ALLISON Attending Unavailable AICHHOLZ, CRM CONSULTANT ALLISON Admitting Unavailable AICHHOLZ, CRM CONSULTANT ALLISON Primary Care Unavailable URICH, DR VERO De Oliveira Consulting Unavailable AICHHOLZ, CRM CONSULTANT ALLISON Consulting Unavailable AICHHOLZ, CRM CONSULTANT ALLISON Primary Care Unavailable URICH, DR VERO De Oliveira Consulting Unavailable FAWWAD, MEI H Attending Unavailable FAWWAD, MEI H Admitting Unavailable FAWWAD, MEI H Consulting Unavailable AICHHOLZ, CRM CONSULTANT ALLISON Admitting Unavailable AICHHOLZ, CRM CONSULTANT ALLISON Primary Care Unavailable AICHHOLZ, CRM CONSULTANT ALLISON Consulting Unavailable AICHHOLZ, CRM CONSULTANT ALLISON Attending Unavailable AICHHOLZ, CRM CONSULTANT ALLISON Admitting Unavailable AICHHOLZ, CRM CONSULTANT ALLISON Primary Care Unavailable AICHHOLZ, CRM CONSULTANT ALLISON Consulting Unavailable AICHHOLZ, CRM CONSULTANT ALLISON Attending Unavailable Unavailable Primary Care Provider Unavailabl e [facility] Referring Unavaila ble AICHHOLZ, ALLISON ARA Referring Unavailable ANGELINE, JENNIFER KAMALES Attending Unavaila ble Unavailable Primary Care Provider Unavailabl ferdinand Parks MD, Andrius Quiroz Attending Unavailable Giherminiaitis , Andrius Vytauttrang Attending Unavailable Syedaitis , Andrius Vytauttrang Attending Unavailable Charly SCHULER, Andrius Vytautas Attending Unavailable Giherminiaitis , Andrius Vytautas Attending Unavailable Leonard Aviles MD Primary Care Provider [phone] Aichholz FACILITY MANAGER, Allison Unavailable Aichholz FACILITY MANAGER, Allison Unavailable Aichholz PROOFER-LAURO, Allison Ara Primary Care Provider MARY SIMMONS Attending Unavailable AICHHOLZ, ALLISON ARA Primary Care Unavailable Aichholz PROOFER-CRM CONSULTANT, Allison J Primary Care Provider Louann DO, Stephany Unavailable Aichphamz PROOFER-CRM CONSULTANT, Allison Orozco Primary Care Provider Allison Mendez Primary Care Provider [phone] Diya Mora DNP Attending Provider [phone] Attending Provider Unavailab le AICHHOLZ, ALLISON Attending Unavailable LOUANN, STEPHANY Attending Unavailable LOUANN, STEPHANY Attending Unavailable LOUANN, STEPHANY Attending Unavailable AICHHOLZ, ALLISON Attending Unavailable AICHHOLZ, ALLISON Attending Unavailable AICHHOLZ, ALLISON Attending Unavailable MARTINA LYN Attending Unavailable LOU, ENRIQUE Referring Unavailable SHAHAB, LENCHO Attending Unavailable LOU, ENRIQUE Referring Unavailable SHAHAB, LENCHO Attending Unavailable LOU, ENRIQUE Referring Unavailable SHAHAB, LENCHO Attending Unavailable LOU, ENRIQUE Referring Unavailable SHAHAB, LENCHO Attending Unavailable LOU, ENRIQUE Referring Unavailable SHAHAB, LENCHO Attending Unavailable LOU, ENRIQUE Referring Unavailable SHAHAB, LENCHO Attending Unavailable LOU, ENRIQUE Referring Unavailable SHAHAB, LENCHO Attending Unavailable LOU, ENRIQUE Referring Unavailable SHAHAB, LENCHO Attending Unavailable LOU, ENRIQUE Referring Unavailable SHAHAB, LENCHO Attending Unavailable SHAHAB, LENCHO Attending Unavailable LOU, ENRIQUE Referring Unavailable AICHHOLZ, ALLISON Attending Unavailable SHAHAB, LENCHO Attending Unavailable LOU, ENRIQUE Referring Unavailable APLING, LEIDA Rodarte Attending Unavailable APLING, LEIDA Rodarte Attending Unavailable AICHHOLZ, ALLISON Attending Unavailable AICHSHALINI, ALLISON Attending Unavailable LAURO OSUNA Attending Unavailable HEIDIHANA LOYAA J Referring Unavailable AICHHOLZ, ALLISON J Primary Care Unavailable Aichholz FACILITY MANAGER-C, Allison J Primary Care Provider Diya Mora DNP Attending Provider Vanessa FACILITY MANAGER-CAllison Primary Care Provider Tasia Stewart RD Attending Provider Unavailab le Aichholz FACILITY MANAGER-CAllison Attending Provider [phone] LAURO OSUNA Referring Unavailable AICHHOLLorri, ALLISON Orozco Primary Care Unavailable LAURO OSUNA Referring Unavailable AICHSHALINI, ALLISON J Primary Care Unavailable Allergies Allergy Classification Reported Allergen(s) Allergy Type Date of Onset Reaction(s) Facility (20 sources) gabapentin; Translations: [gabapentin] Drug Allergy 07-30-19 22 Other: See Comments, Unknown, Anxiety, Other [facility] (8 sources) hydroCHLOROthiazide; Translations: [hydroCHLOROthiazide CAPS] Drug Allergy 07-30-19 22 Other: See Comments, Anaphylaxis, Fever [facility] (1 source) gabapentin Drug Allergy [facility] Repository (12 sources) hydroCHLOROthiazide; Translations: [HYDROCHLOROTHIAZIDE] Drug Allergy 10-11-19 14 elevated temp [facility] Repository (20 sources) celecoxib; Translations: [CELECOXIB] Drug Allergy 10-13-19 24 Other [facility] Healthcare (20 sources) hydroCHLOROthiazide Drug Allergy 07-30-19 22 [facility] (3 sources) celecoxib Drug Allergy 10-13-19 24 Shortness of breath, Other (See Comments) [facility] (20 sources) DULoxetine; Translations: [DULOXETINE] Drug Allergy 04-11-20 24 Other, Other (See Comments) [facility] Work Phone: (6 sources) semaglutide Allergy to substance 10-19-19 25 chest pain, headache, hypertension [facility] Medications Current Medications Medication Drug Class(es) Dates Sig (Normalized) Sig (Original) 8 hr acetaminophen 650 mg extended release oral tablet (1 source) take 1 tablet by mouth every eight hours as needed acetaminophen (Tylenol 8 HOUR) 650 mg ER tablet Take 1 tablet (650 mg) by mouth every 8 hours if needed for mild pain (1 - 3). Do not crush, chew, or split. Active acetic acid 20 mg/ml otic solution (3 sources) Start: 04-12-2024 End: 04-19-2024 acetic acid (Vosol) 2 % otic solution Indications: Chronic otitis externa of left ear, unspecified type Administer 3 drops into the left ear in the morning and 3 drops in the evening and 3 drops before bedtime. Do all this for 7 days. 15 mL 04/12/2024 04/19/2024 Active [id number] 200 actuat albuterol 0.09 mg/actuat metered dose inhaler (14 sources) beta2-Adrenergic Agonist Start: 10-18-2024 Start: 09-29-2024 take 2 puff(s) by in halation every six hours as needed albuterol (PROVENTIL HFA;VENTOLIN HFA) 90 mcg/actuation inhaler Inhale 2 puffs every 6 (six) hours as needed. 09/29/2024 Active Start: 09-29-2024 take 2 puff(s) by in halation every six hours for wheezing albuterol HFA 90 mcg/act inhaler Indications: Wheezing Inhale 2 puffs every 6 (six) hours if needed for shortness of breath or wheezing 18 g 09/29/2024 Active amitriptyline hydrochloride 25 mg oral tablet (2 sources) Tricyclic Antidepressant End: 04-11-2024 take 1 tablet by mouth once daily at bedtime amitriptyline (Elavil) 25 mg tablet Take 1 tablet (25 mg) by mouth once daily at bedtime. 04/11/2024 Discontinued (Therapy completed) aspirin 81 mg chewable tablet (20 sources) Platelet Aggregation Inhibitor, Nonsteroidal Anti-inflammatory Drug Start: 10-18-2024 take 1 tablet by mouth once daily take 1 capsule by mouth in the m orning aspirin 81 mg capsule Take 81 mg by mouth in the morning. Active take 1 tablet by mouth once brian y aspirin 81 MG EC tablet Take 81 mg by mouth Daily Active aspirin 81 mg ca p take 0.5 tablet by mouth twice d aily Aspirin 325 MG Oral Tablet Delayed Release 1/2 tablet twice daily Quantity: 90 Refills: 3 Ordered: 30-Jun-2022 DO Active atorvastatin 10 mg oral tablet (20 sources) HMG-CoA Reductase Inhibitor Start: 11-26-2022 End: 02-07-2025 take 1 tablet by mouth once daily in the evening Comment on above: Take 10 mg by mouth. baclofen 10 mg oral tablet (20 sources) gamma-Aminobutyri c Acid-ergic Agonist Start: 01-31-2024 take 1 tablet by mouth three times daily as needed baclofen (LIORESAL) 10 mg tablet Take 1 tablet (10 mg total) by mouth Three times daily as needed. 01/31/2024 Active busPIRone hydrochloride 10 mg oral tablet (20 sources) Start: 10-18-2024 take 1 tablet by mouth three times daily as needed Start: 12-09-2023 End: 02-07-2025 take 1 tablet by mouth every eight hours busPIRone (Buspar) 10 MG tablet Indications: Panic attack Take 1 tablet (10 mg) by mouth every 8 (eight) hours if needed (anxiety) 270 tablet 1 11/09/2024 02/07/2025 Active Start: 01-20-2023 take 1 tablet by grzegorz th every twelve hours busPIRone (BUSPAR) 10 mg tablet Take 1 tablet by mouth every 12 hours. 0 01/20/2023 Active take 1 tablet by grzegorz th twice daily busPIRone (Buspar) 10 mg tablet Take 1 tablet (10 mg) by mouth 2 times a day. Active Comment on above: Take 1 tablet by grzegorz th every 12 hours. carvedilol 3.125 mg oral tablet (12 sources) alpha-Adrenergic Feli, beta-Adrenergic Feli Start: 11-09-2024 End: 01-20-2025 take 1 tablet by mouth twice daily cholecalciferol 0.05 mg oral tablet (20 sources) Vitamin D Start: 01-23-2025 take 1 tablet by mouth once daily Start: 10-18-2024 End: 01-23-2025 take 1 capsule by mouth once daily Cholecalciferol (Vitamin D3) 50 mcg (2,000 unit) capsule Discontinued 50 MCG PO Daily October 18, 2024 12:00am January 23, 2025 12:46pm Start: 10-18-2024 take 1 capsule by mo [facility] once daily Cholecalciferol (Vitamin D3) 50 mcg (2,000 unit) capsule Active 50 MCG PO Daily October 18, 2024 12:00am Start: 07-25-2024 take 1 capsule by mo ut in the morning cholecalciferol, vitamin D3, 2,000 units capsule Take 1 capsule (2,000 Units total) by mouth in the morning. 07/25/2024 Active Start: 07-25-2024 take 1 capsule by mo uth once daily cholecalciferol (Vitamin D-3) 50 MCG (1999 UT) capsule Take 2,000 Units by mouth Daily 07/25/2024 Active Start: 01-18-2024 End: 08-07-2024 take 1 capsule by mouth once daily cholecalciferol (Vitamin D-3) 50 MCG (1999 UT) capsule Indications: Vitamin D deficiency Take 1 capsule (50 mcg) by mouth Daily Take 50 mcg by mouth Daily 90 capsule 1 05/09/2024 08/07/2024 Active Start: 10-20-2023 End: 01-18-2024 take 1 capsule by mouth once in the morning cholecalciferol (RA Vitamin D-3) 125 MCG (5000 UT) capsule Indications: Vitamin D deficiency Take 1 capsule (125 mcg) by mouth in the morning. 90 capsule 1 10/20/2023 01/18/2024 Active take 1 tablet by grzegorz th once daily cholecalciferol (Vitamin D3) 25 MCG (1000 UT) tablet Take 1 tablet (1,000 Units) by mouth once daily. Active cyclobenzaprine hydrochloride 10 mg oral tablet (20 sources) Muscle Relaxant Start: 06-10-2021 End: 01-20-2025 take 1 tablet by mouth once daily as needed cyclobenzaprine (FLEXERIL) 10 mg tablet Take 1 tablet (10 mg total) by mouth daily as needed. 06/10/2021 Active End: 04-11-2024 take 1 tablet by mouth three times daily as needed for muscle spasms cyclobenzaprine (Flexeril) 10 mg tablet Take 1 tablet (10 mg) by mouth 3 times a day as needed for muscle spasms. 04/11/2024 Discontinued (Therapy completed) Comment on above: 1 (one) time each da y at the same time. diclofenac sodium 0.01 mg/mg topical gel (20 sources) Nonsteroidal Anti-inflammatory Drug diclofenac sodium (VOLTAREN) 1 % gel Apply 4 g topically in the morning and 4 g at noon and 4 g in the evening and 4 g before bedtime. Active diclofenac sodiu m (Voltaren) 1 % gel Apply 4.5 inches (4 g) topically 4 times a day. Active doxepin hydrochloride 10 mg oral capsule (6 sources) Tricyclic Antidepressant Start: 11-21-2022 take 1 capsule by mouth once daily doxepin (SINEquan) 10 mg capsule Take 1-2 capsules (10-20 mg total) by mouth nightly. 11/21/2022 Active Comment on above: Take 10-20 mg by grzegorz th daily at bedtime. FLUoxetine 20 mg oral capsule (20 sources) Serotonin Reuptake Inhibitor Start: 12-21-2024 End: 03-21-2025 take 1 capsule by mouth in the morning FLUoxetine (PROzac) 20 mg capsule Take 1 capsule (20 mg total) by mouth in the morning. 12/21/2024 03/21/2025 Active Start: 07-27-2024 End: 02-07-2025 take 1 capsule by mouth once daily Fluoxetine 10 mg capsule Discontinued 10 MG PO Daily October 18, 2024 12:00am January 29, 2025 2:43pm Start: 04-12-2024 End: 06-11-2024 take 1 capsule by mouth once daily FLUoxetine (PROzac) 10 MG capsule Indications: Panic attack (CMS/HCC) Take 1 capsule (10 mg) by mouth Daily 30 capsule 1 05/12/2024 Active ibuprofen 800 mg oral tablet (20 sources) Nonsteroidal Anti-inflammatory Drug take 1 tablet by mouth every eight hours as needed ibuprofen (MOTRIN) 800 mg tablet Take 1 tablet (800 mg total) by mouth every 8 (eight) hours as needed. Active levothyroxine sodium 0.15 mg oral tablet (20 sources) l-Thyroxine Start: 10-19-19 End: 02-08-20 take 1 tablet by mouth once daily Start: 10-18-2024 take 1 tablet by grzegorz th once daily Levothyroxine 150 mcg tablet Active 150 MCG PO Daily October 18, 2024 12:00am Start: 01-20-2023 End: 02-07-2025 take 1 tablet by mouth before mealtime levothyroxine (Synthroid, Levoxyl) 150 MCG tablet Indications: Hypothyroidism (acquired) Take 1 tablet (150 mcg) by mouth in the morning. Take before meals. 90 tablet 1 11/09/2024 02/07/2025 Active Start: 01-01-2021 End: 01-20-2025 take 1 tablet by mouth in the morning levothyroxine (SYNTHROID, LEVOTHROID) 125 MCG tablet Take 1 tablet (125 mcg total) by mouth in the morning. 07/08/2021 01/20/2025 Discontinued (Duplicate order) Comment on above: TAKE 1 TABLET BY GRZEGORZ TH 2 (TWO) HOURS prior to any food/drink/meds first thing IN THE MORNING 3 ml liraglutide 6 mg/ml pen injector (20 sources) GLP-1 Receptor Agonist Start: 023 End: 025 inject 1.8 mg by subcutaneous injection once daily liraglutide (Victoza) 18 MG/3ML injection Indications: Type 2 diabetes mellitus without complication, without long-term current use of insulin ([facility] INJECT 1.8 MG SUBCUTANEOUSLY ONCE DAILY 9 mL 5 03/10/2024 05/24/2024 Discontinued (Cost of medication) End: 01-20-2025 VICTOZA 3-ROME 0.6 mg/0.1 mL (18 mg/3 mL) pen injector Inject 0.3 mL (1.8 mg total) under the skin in the morning. 01/20/2025 Discontinued liraglutide (Miquel toza 3-Rome) 0.6 mg/0.1 mL (18 mg/3 mL) injection Inject 0.2 mL (1.2 mg) under the skin once daily. Active inject 1.8 mg by sub cutaneous injection once daily Victoza 18 MG/3ML Subcutaneous Solution Pen-injector INJECT 1.8 MG SUBCUTANEOUSLY EVERY DAY Quantity: 0 Refills: 0 Ordered: 30-Jun-2022 DO Active Comment on above: INJECT 1.8mg SUBCUTA NEOUSLY DAILY magnesium gluconate 500 mg oral tablet (6 sources) take 1 tablet by mouth at bedtime magnesium gluconate (MAGONATE) 500 mg tablet tablet Take 1 tablet (500 mg total) by mouth in the morning and at bedtime. Active magnesium glucon ate (MAG-G) 27 mg (500 mg) tab Take by mouth once daily. Twice daily 0 Active Comment on above: Take by mouth once d aily. Twice daily Magnesium Oxide (20 sources) End: 11-09-2024 magnesium oxide (Mag-Ox) 400 mg tablet 400 mg in the morning. 11/09/2024 Discontinued (Therapy completed) take 1 capsule by mouth twice da nahum magnesium oxide 500 mg capsule Take 1 capsule (500 mg) by mouth 2 times a day. Active magnesium oxide (Mag-Ox) 400 mg tablet 400 mg in the morning. Active meclizine hydrochloride 25 m g oral tablet (20 sources) Antiemetic Start: 10-18-2024 take 1 tablet by grzegorz th twice daily as needed meclizine (ANTIV ERT) 25 mg tablet Take 0.5 tablets (12.5 mg total) by mouth as needed in the morning and 0.5 tablets (12.5 mg total) as needed in the evening for dizziness. Active End: 05-24-2024 meclizine (Antivert) 25 MG t ablet Take 25 mg by mouth every 12 (twelve) hours if needed for dizziness 05/24/2024 Discontinued (Therapy completed) take 1 tablet by grzegorz three times daily as needed for dizziness meclizine (Antivert) 25 mg tablet Take 1 tablet (25 mg) by mouth 3 times a day as needed for dizziness. Active Meclizine HCl - 25 MG Oral Tablet TAKE DIRECTED. Quantity: 0 Refills: 0 Ordered: 30-Jun-2022 DO Active Comment on above: 1 (one) time each da y at the same time. mecobalamin 1 mg chewable tablet (6 sources) Start: 10-18-2024 take 1 tablet by mouth once daily metFORMIN hydrochloride 1000 mg oral tablet (20 sources) Biguanide Start: 05-24-2024 End: 02-07-2025 take 1 tablet by mouth once daily Start: 07-03-2021 take 2 tablets by mo [facility] in the morning metFORMIN (GLUCOPHAGE) 500 mg tablet Take 2 tablets (1,000 mg total) by mouth in the morning. 07/03/2021 Active Start: 03-04-2021 End: 08-01-2024 take 1 tablet by mouth in the morning metFORMIN (GLUCOPHAGE) 500 mg tablet Take 1 tablet (500 mg total) by mouth in the morning. 07/03/2021 Active Comment on above: 1 (one) time each da y at the same time. multivitamin with minerals tablet (1 source) take 1 tablet by mouth once daily multivitamin with minerals tablet Take 1 tablet by mouth once daily. Active riboflavin 100 mg oral tablet (20 sources) take 2 tablets by mouth in the morning, then take 2 tablets by mouth at bedtime riboflavin, vitamin B2, 100 mg tablet Take 2 tablets (200 mg total) by mouth in the morning and 2 tablets (200 mg total) before bedtime. Active End: 03-09-2024 riboflavin (vitamin B2) 100 mg tablet tablet 03/09/2024 Discontinued (Therapy completed) semaglutide 3 mg oral tablet (6 sources) End: 05-24-2024 take 1 tablet by mouth before mealtime semaglutide (Rybelsus) 3 MG tablet Indications: Type 2 Diabetes Mellitus Take 3 mg by mouth in the morning. Take before meals. 05/24/2024 Discontinued (Side effects) sertraline 100 mg oral tablet (20 sources) Serotonin Reuptake Inhibitor Start: 03-31-2023 End: 03-09-2024 take 1 tablet by mouth in the morning sertraline (ZOLOFT) 100 mg tablet Take 1 tablet (100 mg total) by mouth in the morning. 03/31/2023 Active Tirzepatide (Mounjaro) 5 MG/0.5ML solution auto-injector (1 source) Start: 03-09-2024 End: 03-10-2024 Tirzepatide (Mounjaro) 5 MG/0.5ML solution auto-injector Indications: Type 2 diabetes mellitus without complication, without long-term current use of insulin ([facility]) Inject 5 mg under the skin every 7 (seven) days for 28 days 2 mL 1 03/09/2024 03/10/2024 Discontinued (Cost of medication) tiZANidine 4 mg oral tablet (20 sources) Central alpha-2 Adrenergic Agonist Start: 07-13-2024 End: 11-09-2024 tiZANidine (Zanaflex) 4 MG tablet Indications: Low back pain at multiple sites 1-2 po q hs 60 tablet 2 07/13/2024 11/09/2024 Discontinued (Therapy completed) Start: 10-15-2023 End: 07-13-2024 take 1 tablet by mouth every six hours as needed tiZANidine (Zanaflex) 4 MG tablet Take 4 mg by mouth every 6 (six) hours if needed 12/27/2023 07/13/2024 Discontinued triamcinolone acetonide 0.055 mg/actuat metered dose nasal spray (20 sources) Corticosteroid Start: 01-29-2025 take 1 spray(s) nasa l route once daily take 2 spray(s) nasal route once daily triamcinolone (Nasacort) 55 MCG/ACT nasal inhaler Administer 2 sprays into each nostril Daily Active turmeric extract 500 mg oral capsule (20 sources) End: 11-09-2024 Turmeric (CurcuPlex-95) 500 MG capsule Take by mouth 11/09/2024 Discontinued (Therapy completed) take 500 mg by mouth at bedtime TURMERIC ORAL Take 500 mg by mouth in the morning and at bedtime. Active Turmeric (CurcuP todd-95) 500 MG capsule Take by mouth Active take 500 mg by mouth at bedtime [...] Take by mouth. 1-2 p er day turmeric root extract 500 mg capsule (1 source) turmeric root extract 500 mg capsule Take by mouth. Active 24 hr verapamil hydrochloride 180 mg extended release oral capsule (20 sources) Calcium Channel Feli Start: 01-20-2023 take 1 capsule by mouth every hour verapamil ER 180 mg 24 hr capsule Take 1 capsule by mouth every afternoon. 0 01/20/2023 Active Start: 07-09-2021 take 1 capsule by mo [facility] every twenty-four hours in the morning verapamiL (VERELAN) 180 mg 24 hr capsule Take 1 capsule (180 mg total) by mouth in the morning. 07/09/2021 Active Start: 04-03-2021 End: 02-07-2025 take 1 capsule by mouth once daily verapamil ER (Verel an) 180 MG 24 hr capsule Indications: Tachycardia Take 1 capsule (180 mg) by mouth Daily 90 capsule 1 11/09/2024 02/07/2025 Active Comment on above: Take 1 capsule by mo [facility] every afternoon. vitamin b12 1 mg oral tablet (20 sources) Vitamin B12 take 1 tablet by mouth in the morning cyanocobalamin 1000 MCG tablet Take 1 tablet (1,000 mcg total) by mouth in the morning. Active Completed/Discontinued Medications Medication Drug Class(es) Dates Sig (Normalized) Sig (Original) DULoxetine 30 mg delayed release oral capsule (18 sources) Serotonin and Norepinephrine Reuptake Inhibitor Start: 03-09-2024 End: 04-12-2024 take 1 capsule by mouth once daily DULoxetine (Cymbalta) [address] capsule Indications: Fibromyalgia Syndrome , Generalized Anxiety Disorder , Musculoskeletal Pain Take 1 capsule (30 mg) by mouth Daily Do not crush or chew. 30 capsule 1 03/09/2024 04/12/2024 Discontinued (Side effects) losartan potassium 50 mg oral tablet (20 sources) Angiotensin 2 Receptor Feli Start: 10-18-2024 End: 12-01-2024 take 2 tablets by mouth once daily Losartan 50 mg tablet Discontinued 100 MG PO Daily October 18, 2024 12:00am December 01, 2024 11:18am Start: 05-24-2024 End: 02-07-2025 take 1 tablet by mouth once daily Start: 12-09-2023 End: 08-01-2024 take 1 tablet by mouth once daily losartan (Cozaar) 50 MG tablet Indications: Primary hypertension (CMS/HCC) Take 1 tablet (50 mg) by mouth Daily 90 tablet 1 05/03/2024 05/24/2024 Discontinued (Ineffective) Start: 02-04-2021 End: 04-11-2024 take 1 tablet by mouth in the morning losartan (COZAAR) 25 mg tablet Take 1 tablet (25 mg total) by mouth in the morning. 07/09/2021 Active Comment on above: 1 (one) time each da y at the same time. 1 ml methylPREDNISolone acetate 40 mg/ml injection (8 sources) Corticosteroid Start: 03-21-20 End: 03-21-20 methylPREDNISolone acetate (DEPO-Medrol) injection 40 mg Start: 03-21-2024 End: 03-21-2024 40 mg, Intra-articular, Once PRN Procedure, Starting on Thu03/21/24 at 1002, For 1 dose Start: 03-16-2024 End: 03-16-2024 methylPREDNISolone acetate ( DEPO-Medrol) injection 40 mg Start: 03-16-2024 End: 03-16-2024 40 mg, Intra-articular, Once PRN Procedure, Starting on Thu03/16/24 at 0930, For 1 dose Problems Active Problems Problem Classification Problem Date Documented Date Episodic/Chronic Administrative/social admission (2 sources) Dietary counseling and surveillance; Translations: [Dietary surveillance and counseling] 10-18-2024 Episodic Anxiety disorders (20 sources) Panic attack; Translations: [Panic disorder [episodic paroxysmal anxiety]] Onset: 05-27-2023 05-27-2023 Chronic Asthma (18 sources) Unspecified asthma, uncomplicated; Translations: [Asthma] Onset: 03-05-2022 10-18-2024 Chronic Cancer of uterus (20 sources) Malignant neoplasm of endometrium of corpus uteri ; Translations: [Malignant neoplasm of endometrium] Onset: 12-07-2023 12-07-2023 Chronic Cardiac dysrhythmias (20 sources) Tachycardia, unspecified; Translations: [Tachycardia] Onset: 01-24-2022 05-25-2023 Episodic Chronic obstructive pulmonary disease and bronchiectasis (6 sources) Bronchitis; Translations: [Bronchitis, not specified as acute or chronic] Onset: 09-29-2024 09-29-2024 Episodic Conditions associated with dizziness or vertigo (20 sources) Vertigo; Translations: [Dizziness and giddiness] Onset: 10-17-2022 10-17-2022 Episodic Diabetes mellitus without complication (20 sources) Type 2 diabetes mellitus without complications; Translations: [Type 2 diabetes mellitus without complication] Onset: 01-22-2022 Resolved: 05-24-2024 Chronic Diabetes mellitus without complication (18 sources) Prediabetes; Translations: [Prediabetes] Onset: 05-16-2022 10-18-2024 Episodic Disorders of lipid metabolism (20 sources) Mixed hyperlipidemia; Translations: [Mixed hyperlipidemia] Onset: 09-07-2023 09-07-2023 Chronic Essential hypertension (20 sources) Benign essential hypertension; Translations: [Benign essential hypertension] Onset: 08-03-2023 08-10-2023 Chronic Headache; including migraine (1 source) Morning headache; Translations: [Morning headache] 01-20-2025 Episodic Heart valve disorders (20 sources) Systolic murmur; Translations: [Undiagnosed cardiac murmurs] Onset: 07-30-2023 Resolved: 04-12-2024 07-30-2023 Episodic Joint disorders and dislocations; trauma-related (20 sources) Derangement of right knee; Translations: [Unspecified internal derangement of right knee] Onset: 10-17-2022 10-17-2022 Chronic Malaise and fatigue (20 sources) Fatigue; Translations: [Other malaise and fatigue] Onset: 02-17-2023 02-17-2023 Episodic Nutritional deficiencies (20 sources) Vitamin D deficiency; Translations: [Vitamin D deficiency, unspecified] Onset: 02-17-2023 02-17-2023 Chronic Osteoarthritis (20 sources) Unilateral primary osteoarthritis, right knee; Translations: [Idiopathic osteoarthritis] Onset: 12-20-2021 10-17-2022 Chronic Other bone disease and musculoskeletal deformities (20 sources) Costal chondritis; Translations: [Chondrocostal junction syndrome [Tietze]] Onset: 07-30-2023 Resolved: 07-30-2023 07-30-2023 Episodic Other connective tissue disease (20 sources) Fibromyalgia; Translations: [Fibromyalgia] Onset: 03-09-2024 02-17-2023 Episodic Other connective tissue disease (3 sources) Fibromyalgia; Translations: [Myalgia and myositis, unspecified] Onset: 02-17-2023 10-18-2024 Episodic Other connective tissue disease (6 sources) Biceps tendinitis; Translations: [Bicipital tendinitis, unspecified shoulder] Episodic Other ear and sense organ disorders (20 sources) Chronic otitis externa of left external auditory canal; Translations: [Unspecified chronic otitis externa, left ear] Onset: 04-12-2024 04-12-2024 Chronic Other endocrine disorders (4 sources) Other hypoglycemia; Translations: [OTHER HYPOGLYCEMIA] Onset: 10-01-2021 Chronic Other endocrine disorders (16 sources) Polycystic ovary syndrome; Translations: [Polycystic ovarian syndrome] 10-18-2024 Chronic Other endocrine disorders (1 source) Polycystic ovarian syndrome; Translations: [Polycystic ovaries] 10-18-2024 Chronic Other female genital disorders (20 sources) Atypical endometrial hyperplasia; 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]] Onset: 07-29-2021 Resolved: 05-24-2024 10-17-2022 Chronic Other hematologic conditions (1 source) ESR raised; Translations: [Elevated erythrocyte sedimentation rate] 02-17-2023 Episodic Other liver diseases (20 sources) Alkaline phosphatase raised; Translations: [Abnormal levels of other serum enzymes] Onset: 10-23-2023 10-23-2023 Episodic Other lower respiratory disease (8 sources) Wheezing; Translations: [Wheezing] Onset: 09-29-2024 09-29-2024 Episodic Other nervous system disorders (20 sources) Difficulty walking; Translations: [Difficulty in walking, not elsewhere classified] Onset: 10-17-2022 10-17-2022 Chronic Other nervous system disorders (1 source) Anosmia; Translations: [ANOSMIA] Onset: 07-07-2022 Episodic Other nervous system disorders (8 sources) Paresthesia of skin; Translations: [PARESTHESIA OF SKIN] Onset: 01-17-2022 Episodic Other nervous system disorders (20 sources) Loss of sense of smell; Translations: [Anosmia] Onset: 10-17-2022 10-17-2022 Episodic Other nervous system disorders (3 sources) Numbness and tingling sensation of skin; Translations: [Anesthesia of skin] 07-13-2024 Episodic Other nervous system disorders (2 sources) Word finding difficulty ; Translations: [Other speech disturbances] 07-13-2024 Episodic Other nervous system disorders (4 sources) Paresthesia; Translations: [Paresthesia of skin] 01-20-2025 Episodic Other non-traumatic joint disorders (2 sources) Arthritis of left knee 03-16-2024 Chronic Other non-traumatic joint disorders (2 sources) Arthritis of right knee 03-21-2024 Chronic Other non-traumatic joint disorders (8 sources) Pain in right knee; Translations: [Pain in joint, lower leg] Onset: 12-18-2021 Episodic Other non-traumatic joint disorders (2 sources) Pain in left knee; Translations: [Pain in joint, lower leg] 03-16-2024 Episodic Other nutritional; endocrine; and metabolic disorders (20 sources) Body mass index 40+ - severely obese; Translations: [Morbid obesity] Onset: 04-11-2024 Resolved: 07-05-2024 04-11-2024 Chronic Other nutritional; endocrine; and metabolic disorders (1 source) Obesity, unspecified; Translations: [OBESITY UNSPECIFIED] Onset: 01-16-2022 Chronic Other nutritional; endocrine; and metabolic disorders (2 sources) Body mass index (BMI) 50.0-59.9, adult; Translations: [Body Mass Index 50.0-59.9, adult] Onset: 01-16-2022 10-18-2024 Chronic Other nutritional; endocrine; and metabolic disorders (1 source) Morbid (severe) obesity due to excess calories; Translations: [MORBID SEVERE OBES D/T EXCESS JOHN] Onset: 10-03-2021 Chronic Other nutritional; endocrine; and metabolic disorders (20 sources) Severe obesity; Translations: [Class 3 severe obesity due to excess calories without serious comorbidity with body mass index (BMI) of 45.0 to 49.9 in adult ([facility])] 03-09-2024 Chronic Other nutritional; endocrine; and metabolic disorders (2 sources) Body mass index (BMI) 45.0-49.9, adult; Translations: [Body mass index (BMI) 45.0-49.9, adult (Multi)] Onset: 04-11-2024 Chronic Other nutritional; endocrine; and metabolic disorders (20 sources) Obesity caused by energy imbalance; Translations: [Morbid (severe) obesity due to excess calories] Onset: 05-24-2024 05-24-2024 Chronic Other nutritional; endocrine; and metabolic disorders (16 sources) Abnormal weight gain; Translations: [Abnormal weight gain] 10-18-2024 Episodic Other nutritional; endocrine; and metabolic disorders (1 source) Abnormal weight gain; Translations: [Abnormal weight gain] 10-18-2024 Episodic Other screening for suspected conditions (not mental disorders or infectious disease) (20 sources) Patient encounter status; Translations: [Encounter for screening mammogram for malignant neoplasm of breast] Onset: 03-09-2024 03-09-2024 Episodic Other upper respiratory disease (20 sources) Chronic rhinitis; Translations: [Chronic rhinitis] Onset: 10-17-2022 10-17-2022 Chronic Residual codes; unclassified (18 sources) Obstructive sleep apnea syndrome; Translations: [Obstructive sleep apnea (adult) (pediatric)] 07-13-2024 Chronic Residual codes; unclassified (2 sources) Insomnia co-occurrent and due to medical condition; Translations: [Insomnia due to medical condition] 07-13-2024 Chronic Residual codes; unclassified (1 source) Obstructive sleep apnea (adult) (pediatric); Translations: [Obstructive sleep apnea (adult)(pediatric)] 10-18-2024 Chronic Residual codes; unclassified (1 source) Family history of autism; Translations: [Family history of other mental and behavioral disorders] 08-31-2023 Episodic Residual codes; unclassified (2 sources) Sleep deprivation; Translations: [Sleep deprivation] 07-13-2024 Episodic Spondylosis; intervertebral disc disorders; other back problems (17 sources) Lumbar spondylosis; Translations: [Spondylosis without myelopathy or radiculopathy, lumbar region] 10-18-2024 Chronic Spondylosis; intervertebral disc disorders; other back problems (20 sources) Lumbar radiculopathy; Translations: [Radiculopathy, lumbar region] Onset: 07-30-2023 02-09-2024 Episodic Thyroid disorders (20 sources) Hypothyroidism, unspecified; Translations: [Acquired hypothyroidism] Onset: 10-03-2021 Chronic Unclassified (3 sources) LOW BACK PAIN, UNSPECIFIED; Translations: [LOW BACK PAIN, UNSPECIFIED] Onset: 08-13-2021 Unclassified (1 source) New Patient Onset: 01-20-2025 Unclassified (2 sources) M75.20 - Bicipital tendinitis, unspecified shoulder Viral infection (20 sources) Herpes zoster without complication; Translations: [Zoster without complications] Onset: 04-30-2023 04-30-2023 Episodic Past or Other Problems Problem Classification Problem Date Documented Date Episodic/Chronic E Codes: Cut/pierceb (1 source) Contact with unspecified sharp object(s), initial encounter; Translations: [[facility] UNSPECIFIED SHARP OBJECT INIT] Onset: 03-05-2022 Episodic Mood disorders (4 sources) Mood disorders Onset: 04-14-2023 Resolved: 01-20-2025 04-14-2023 Open wounds of head; neck; and trunk (4 sources) Puncture wound without foreign body of lip, initial encounter; Translations: [PUNCT WOUND W/O FB LIP INITIAL ENC] Onset: 03-04-2022 Episodic Other aftercare (1 source) 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; Translations: [OTH SHELTER CURRENT DRUG THERAPY] Onset: 03-05-2022 Episodic Other aftercare (1 source) senior care (current) use of oral hypoglycemic drugs; Translations: [DETECTIVE AUTOMOBILE SECTION USE ORAL HYPOGLYCEMIC DX] Onset: 01-16-2022 Episodic Other circulatory disease (1 source) Personal history of transient ischemic attack (TIA), and cerebral infarction without residual deficits; Translations: [PERS HX TIA AND CI NO RESID DEFICIT] Onset: 01-16-2022 Episodic Other connective tissue disease (1 source) Patellar tendinitis, right knee; Translations: [PATELLAR TENDINITIS RIGHT KNEE] Onset: 12-20-2021 Episodic Other connective tissue disease (20 sources) Spasm; Translations: [Other muscle spasm] Onset: 04-20-2023 04-20-2023 Episodic Other connective tissue disease (20 sources) Lateral epicondylitis of left humerus; Translations: [Lateral epicondylitis, left elbow] Onset: 07-30-2023 07-30-2023 Episodic Other hematologic conditions (4 sources) Abnormality of plasma protein, unspecified; Translations: [ABNORMALITY PLASMA PROTEIN UNS] Onset: 10-29-2021 Episodic Other hematologic conditions (1 source) Elevated erythrocyte sedimentation rate; Translations: [Sedimentation rate elevation] Onset: 02-17-2023 Episodic Other lower respiratory disease (20 sources) Dyspnea; Translations: [Other respiratory abnormalities] Onset: 08-03-2023 10-13-2023 Episodic Other nervous system disorders (4 sources) Anesthesia of skin; Translations: [ANESTHESIA OF SKIN] Onset: 01-15-2022 Episodic Other nutritional; endocrine; and metabolic disorders (20 sources) Obesity; Translations: [Obesity, unspecified] Onset: 04-30-2023 Resolved: 07-05-2024 04-30-2023 Chronic Residual codes; unclassified (20 sources) Family history of Von Willebrand disease; Translations: [Family history of diseases of the blood and blood-forming organs and certain disorders involving the immune mechanism] Onset: 04-14-2023 07-20-2023 Episodic Residual codes; unclassified (1 source) Acquired absence of both cervix and uterus; Translations: [Acquired absence of both cervix and uterus] Onset: 06-27-2021 10-18-2024 Episodic Sprains and strains (17 sources) Strain of biceps brachii muscle; Translations: [Strain of muscle, fascia and tendon of other parts of biceps, right arm, initial encounter] Onset: 07-05-2024 07-05-2024 Episodic Unclassified (1 source) Never smoked tobacco; Translations: [Never smoker] Unclassified (1 source) LOW BACK PAIN, UNSPECIFIED; Translations: [LOW BACK PAIN, UNSPECIFIED] Onset: 08-13-2021 Results Test Name Value Interpretation Reference Range Facility MR BRAIN IAC W WO CONTon MR BRAIN IAC W WO CONT MR BRAIN IAC W WO CONT HISTORY: A 39-year-old female with a history [...] Madhu Torres MD on 02/17/2025 2:19 PM Normal [facility] HbA1c (Bld) [Mass fraction]o n 11-09-2024 Interpretation and review of laboratory results Normal [facility] - Hematology and Cell countson 11-09-2024 HbA1c (Bld) [Mass fraction] 5.7 % [facility] EMG 2 Extremitieson 07-21-19 25 EMG/NCS BUE Normal study [facility] NVC 11-12 Nerveson 5 EMG/NCS BUE Normal study [facility] ALL CBC WITH AUTO DIFFon BASOPHILS ABSOLUTE AUTO 0 [facility] Basophils/100 WBC (Bld) 0.2 % 0.2 - 2.0 % [facility] Eosinophils/100 WBC (Bld) 1.4 % 0.9 - 7.0 % [facility] Erythrocyte distribution width (RBC) [Ratio] 12.4 % 11.0 - 15.0 % [facility] Hematocrit (Bld) [Volume fraction] 38.4 % 36.0 - 48.0 % [facility] Hemoglobin (Bld) [Mass/Vol] 12.8 g/dL 12.0 - 16.0 g/dL [facility] IMMATURE GRANULOCYTES ABS AUTO 0.03 [facility] Immature granulocytes/100 WBC (Bld) 0.4 % 0.0 - 0.5 % [facility] LYMPHOCYTES ABSOLUTE AUTO 2.7 [facility] Lymphocytes/100 WBC (Bld) 32.3 % 20.5 - 60.0 % [facility] MCH (RBC) [Entitic mass] 29.6 pg 26.7 - 34.0 pg [facility] MCHC (RBC) [Mass/Vol] 33.3 g/dL 29.9 - 35.2 g/dL [facility] MCV (RBC) [Entitic vol] 88.7 fL 81.0 - 99.0 fL [facility] MONOCYTES ABSOLUTE AUTO 0.6 [facility] Monocytes/100 WBC (Bld) 7.5 % 1.7 - 12.0 % [facility] NEUTROPHILS ABSOLUTE AUTO 4.9 [facility] Neutrophils/100 WBC (Bld) 58.2 % 43.0 - 75.0 % [facility] Platelet mean volume (Bld) [Entitic vol] 12.1 fL 9.5 - 13.5 fL [facility] TBH EO # 0.1 [facility] TB PLT 249 [facility] RBC 4.33 [facility] WBC 8.4 [facility] HbA1c (Bld) [Mass fraction]o n 07-05-2024 Interpretation and review of laboratory results Abnormal [facility] - Hematology and Cell countson 07-05-2024 HbA1c (Bld) [Mass fraction] 5.80 % [facility] No Panel Informationon 03-21 Leida Gifford NP 03/21/2024 10:02 AM L Inj/Asp: R knee on 03/21/2024 10:02 AM Indications: pain Details: 20 G needle, anterolateral approach Medications: 40 mg methylPREDNISolone acetate 40 MG/ML UTILIZING ASEPTIC TECHNIQUE PT GIVEN INJECTION IN RIGHT KNEE, NEUROVASC INTACT S/P INJ, TOLERATED WELL Procedure, treatment alternatives, risks and benefits explained, specific risks discussed. Consent was given by the patient. [facility] No Panel Informationon 03-16 Leida Gifford NP 03/16/2024 9:31 AM L Inj/Asp: L knee on 03/16/2024 9:30 AM Indications: pain Details: 20 G needle, anterolateral approach Medications: 40 mg methylPREDNISolone acetate 40 MG/ML Procedure, treatment alternatives, risks and benefits explained, specific risks discussed. Consent was given by the patient. [facility] MLR HEMOGLOBIN A1Con 024 Glucose [Mass/Vol] 108 mg/dL [facility] HbA1c (Bld) [Mass fraction] 5.4 % 4.5 - 6.2 % [facility] Comment on above: ADA RECOMMENDED LIMI T 4.0 - 6.0 ADA THERAPEUTIC TARGET < 7.0 ACTION SUGGESTED > 7.0 [facility] 25(OH)D3 SerPl-mCncon 2022 25-hydroxyvitamin D3 [Mass/Vol] 14.6 ng/mL Low 31.0-80.0 [facility] Comment on above: Order Comment: Speci men Type: BLOOD SPECIMEN Ordering Facility: [facility] Address: [address] [place] [address] Result Comment: Clas sification of 25 [place] Vitamin D status: Deficiency/Insufficiency: < or = 30 ng/ml. Sufficiency/Optimal Levels: 31-80 ng/mL Toxicity: > 100 ng/mL. Test performed by chemiluminescent immunoassay. Performed By: #### 1 989-3 #### [facility] CLIA [id number] [address] [place] [address] [place] CBC W Auto Differential pane l (Bld)on 02-17-2023 Basophils (Bld) [#/Vol] 0.03 10*3/uL <0.11 k/uL [facility] Basophils/100 WBC (Bld) 0.3 % [facility] Differential cell count method Nom (Bld) Auto [facility] Eosinophils (Bld) [#/Vol] 0.12 10*3/uL <0.46 k/uL [facility] Eosinophils/100 WBC (Bld) 1.2 % [facility] Erythrocyte distribution width (RBC) [Ratio] 12.7 % 11.5 - 15.0 % [facility] Hematocrit (Bld) [Volume fraction] 44.5 % 36.0 - 46.0 % [facility] Hemoglobin (Bld) [Mass/Vol] 14.4 g/dL 11.5 - 15.5 g/dL [facility] Immature granulocytes (Bld) [#/Vol] 0.03 10*3/uL <0.10 k/uL [facility] Immature granulocytes/100 WBC (Bld) 0.3 % [facility] Lymphocytes (Bld) [#/Vol] 1.93 10*3/uL 1.00 - 4.00 k/uL [facility] Lymphocytes/100 WBC (Bld) 19.7 % [facility] MCH (RBC) [Entitic mass] 30.3 pg 26.0 - 34.0 pg [facility] MCHC (RBC) [Mass/Vol] 32.4 g/dL 30.5 - 36.0 g/dL [facility] MCV (RBC) [Entitic vol] 93.5 fL 80.0 - 100.0 fL [facility] Monocytes (Bld) [#/Vol] 0.78 10*3/uL <0.87 k/uL [facility] Monocytes/100 WBC (Bld) 7.9 % [facility] Neutrophils (Bld) [#/Vol] 6.93 10*3/uL 1.45 - 7.50 k/uL [facility] Neutrophils/100 WBC (Bld) 70.6 % [facility] Nucleated RBC (Bld) [#/Vol] <0.01 k/uL [facility] Nucleated RBC/100 WBC (Bld) [Ratio] 0.0 /100 WBC [facility] Platelet mean volume (Bld) [Entitic vol] 13.2 fL High 9.0 - 12.7 fL [facility] Platelets (Bld) [#/Vol] 245 10*3/uL 150 - 400 k/uL [facility] RBC (Bld) [#/Vol] 4.76 10*6/uL 3.90 - 5.2 0 m/uL [facility] WBC (Bld) [#/Vol] 9.82 10*3/uL 3.70 - 11. 00 k/uL [facility] Basophils (Bld) [#/Vol] 0.03 10*3/uL Normal <0.11 [facility] Comment on above: Order Comment: Speci men Type: BLOOD SPECIMEN Ordering Facility: [facility] Address: [address] [place] [address] Performed By: #### 5 7021-8 #### [facility] CLIA [id number] [address] [place] [address] [place] Basophils/100 WBC (Bld) 0.3 % Normal [facility] Comment on above: Order Comment: Speci men Type: BLOOD SPECIMEN Ordering Facility: [facility] Address: [address] [place] [address] Performed By: #### 5 7021-8 #### [facility] CLIA [id number] [address] [place] [address] [place] Differential cell count method Nom (Bld) Auto Normal [facility] Comment on above: Order Comment: Speci men Type: BLOOD SPECIMEN Ordering Facility: [facility] Address: [address] [place] [address] Performed By: #### 5 7021-8 #### [facility] CLIA [id number] [address] [place] [address] [place] Eosinophils (Bld) [#/Vol] 0.12 10*3/uL Normal <0.46 [facility] Comment on above: Order Comment: Speci men Type: BLOOD SPECIMEN Ordering Facility: [facility] Address: [address] [place] [address] Performed By: #### 5 7021-8 #### [facility] CLIA [id number] [address] [place] [address] [place] Eosinophils/100 WBC (Bld) 1.2 % Normal [facility] Comment on above: Order Comment: Speci men Type: BLOOD SPECIMEN Ordering Facility: [facility] Address: [address] [place] [address] Performed By: #### 5 7021-8 #### [facility] CLIA [id number] [address] [place] [address] [place] Erythrocyte distribution width (RBC) [Ratio] 12.7 % Normal 11.5-15.0 [facility] Comment on above: Order Comment: Speci men Type: BLOOD SPECIMEN Ordering Facility: [facility] Address: [address] [place] [address] Performed By: #### 5 7021-8 #### [facility] CLIA [id number] [address] [place] [address] [place] Hematocrit (Bld) [Volume fraction] 44.5 % Normal 36.0-46.0 [facility] Comment on above: Order Comment: Speci men Type: BLOOD SPECIMEN Ordering Facility: [facility] Address: [address] [place] [address] Performed By: #### 5 7021-8 #### [facility] CLIA [id number] [address] [place] [address] [place] Hemoglobin (Bld) [Mass/Vol] 14.4 g/dL Normal 11.5-15.5 [facility] Comment on above: Order Comment: Speci men Type: BLOOD SPECIMEN Ordering Facility: [facility] Address: [address] [place] [address] Performed By: #### 5 7021-8 #### [facility] CLIA [id number] [address] [place] [address] [place] Immature granulocytes (Bld) [#/Vol] 0.03 10*3/uL Normal <0.10 [facility] Comment on above: Order Comment: Speci men Type: BLOOD SPECIMEN Ordering Facility: [facility] Address: [address] [place] [address] Performed By: #### 5 7021-8 #### [facility] CLIA [id number] [address] [place] [address] [place] Immature granulocytes/100 WBC (Bld) 0.3 % Normal [facility] Comment on above: Order Comment: Speci men Type: BLOOD SPECIMEN Ordering Facility: [facility] Address: [address] [place] [address] Performed By: #### 5 7021-8 #### [facility] CLIA [id number] [address] [place] [address] [place] Lymphocytes (Bld) [#/Vol] 1.93 10*3/uL Normal 1.00-4.00 [facility] Comment on above: Order Comment: Speci men Type: BLOOD SPECIMEN Ordering Facility: [facility] Address: [address] [place] [address] Performed By: #### 5 7021-8 #### [facility] CLIA [id number] [address] [place] [address] [place] Lymphocytes/100 WBC (Bld) 19.7 % Normal [facility] Comment on above: Order Comment: Speci men Type: BLOOD SPECIMEN Ordering Facility: [facility] Address: [address] [place] [address] Performed By: #### 5 7021-8 #### [facility] CLIA [id number] [address] [place] [address] [place] MCH (RBC) [Entitic mass] 30.3 pg Normal 26.0-34.0 [facility] Comment on above: Order Comment: Speci men Type: BLOOD SPECIMEN Ordering Facility: [facility] Address: [address] [place] [address] Performed By: #### 5 7021-8 #### [facility] CLIA [id number] [address] [place] [address] [place] MCHC (RBC) [Mass/Vol] 32.4 g/dL Normal 30.5-36.0 [facility] Comment on above: Order Comment: Speci men Type: BLOOD SPECIMEN Ordering Facility: [facility] Address: [address] [place] [address] Performed By: #### 5 7021-8 #### [facility] CLIA [id number] [address] [place] [address] [place] MCV (RBC) [Entitic vol] 93.5 fL Normal 80.0-100.0 [facility] Comment on above: Order Comment: Speci men Type: BLOOD SPECIMEN Ordering Facility: [facility] Address: [address] [place] [address] Performed By: #### 5 7021-8 #### [facility] CLIA [id number] [address] [place] [address] [place] Monocytes (Bld) [#/Vol] 0.78 10*3/uL Normal <0.87 [facility] Comment on above: Order Comment: Speci men Type: BLOOD SPECIMEN Ordering Facility: [facility] Address: [address] [place] [address] Performed By: #### 5 7021-8 #### [facility] CLIA [id number] [address] [place] [address] [place] Monocytes/100 WBC (Bld) 7.9 % Normal [facility] Comment on above: Order Comment: Speci men Type: BLOOD SPECIMEN Ordering Facility: [facility] Address: [address] [place] [address] Performed By: #### 5 7021-8 #### [facility] CLIA [id number] [address] [place] [address] [place] Neutrophils (Bld) [#/Vol] 6.93 10*3/uL Normal 1.45-7.50 [facility] Comment on above: Order Comment: Speci men Type: BLOOD SPECIMEN Ordering Facility: [facility] Address: [address] [place] [address] Performed By: #### 5 7021-8 #### [facility] CLIA [id number] [address] [place] [address] [place] Neutrophils/100 WBC (Bld) 70.6 % Normal [facility] Comment on above: Order Comment: Speci men Type: BLOOD SPECIMEN Ordering Facility: [facility] Address: [address] [place] [address] Performed By: #### 5 7021-8 #### [facility] CLIA [id number] [address] [place] [address] [place] Nucleated RBC (Bld) [#/Vol] 10*3/uL Normal <0.01 [facility] Comment on above: Order Comment: Speci men Type: BLOOD SPECIMEN Ordering Facility: [facility] Address: [address] [place] [address] Performed By: #### 5 7021-8 #### [facility] CLIA [id number] [address] [place] [address] [place] Nucleated RBC/100 WBC (Bld) [Ratio] 0.0 /100 WBC Normal [facility] Comment on above: Order Comment: Speci men Type: BLOOD SPECIMEN Ordering Facility: [facility] Address: [address] [place] [address] Performed By: #### 5 7021-8 #### [facility] CLIA [id number] [address] [place] [address] [place] Platelet mean volume (Bld) [Entitic vol] 13.2 fL High 9.0-12.7 [facility] Comment on above: Order Comment: Speci men Type: BLOOD SPECIMEN Ordering Facility: [facility] Address: [address] [place] [address] Performed By: #### 5 7021-8 #### [facility] CLIA [id number] [address] [place] [address] [place] Platelets (Bld) [#/Vol] 245 10*3/uL Normal 150-400 [facility] Comment on above: Order Comment: Speci men Type: BLOOD SPECIMEN Ordering Facility: [facility] Address: [address] [place] [address] Result Comment: Resu lts checked and verified.No clot detected. Performed By: #### 5 7021-8 #### [facility] CLIA [id number] [address] [place] [address] [place] RBC (Bld) [#/Vol] 4.76 10*6/uL Normal 3.90-5.20 [facility] Comment on above: Order Comment: Angiei men Type: BLOOD SPECIMEN Ordering Facility: [facility] Address: [address] [place] [address] Performed By: #### 5 7021-8 #### [facility] CLIA [id number] [address] [address] [place] WBC (Bld) [#/Vol] 9.82 10*3/uL Normal 3.70-11.00 [facility] Comment on above: Order Comment: Shani kay Type: BLOOD SPECIMEN Ordering Facility: [facility] Address: [address] [place] [address] Performed By: #### 5 7021-8 #### [facility] CLIA [id number] [address] [place] [address] [place] CNOVon 02-17-2023 CNOV Office Visit (DORIE ) DENISHA MALDONADO ([id number]) 1985 F Date Time Provider Department 02/17/23 9:00 AM JENNIFER DEWITT During your visit today, we recorded the following information about you: Pulse Blood pressure Weight 96/minute 116/82 126.6 kg Jennifer Dewitt MD 02/17/2023 10:02 AM Signed [facility] Date of Service: 02/17/2023 Patient: Denisha Maldonado Medical Record: [id number] Last Rheumatology visit: None at [facility] History of Present Illness Denisha Maldonado is a 37 year old White female [...] other than (more content not included)... Normal [facility] VITAMIN D 25 HYDROXYon 02-17 25-hydroxyvitamin D3 [Mass/Vol] 14.6 ng/mL Low 31.0 - 80.0 ng/mL [facility] Vit B12 SerPl-mCncon 023 Cobalamin (Vitamin B12) [Mass/Vol] 347 pg/mL Normal 232-1245 [facility] Comment on above: Order Comment: Speci men Type: BLOOD SPECIMEN Ordering Facility: [facility] Address: [address] [place] [address] Performed By: #### 2 132-9 #### [facility] CLIA [id number] [address] [facility] [address] [place] SARS-CoV2 IgMon 07-07-2022 Comment Notes Normal [facility] Comment on above: Result Comment: Nega tive results to antibodies against SARS-CoV-2 are generally indicative of non-exposure to virus and lack of longevity of antibody response. Performed By: #### C VDABM #### [facility] [address] [place] [address] Dr. Karey Ordoñez Disclaimer Notes Normal [facility] Comment on above: Result Comment: This is a lab developed test. This test has been validated in accordance with [facility] [place] guidelines and FDA guidance document (Policy for [...] due to past or present infection with phc-PFOI-FrF-2 coronavirus strains, such as coronavirus HKU1, NL63, OC43, or 229E. Performed By: #### C VDABM #### [facility] [address] [place] [address] Dr. Karey Ordoñez Electronically Signed By Comment Normal [facility] Comment on above: Result Comment: Fernando Scales Performed By: #### C VDABM #### [facility] [address] [place] [address] Dr. Karey Ordoñez Methodology Comment [facility] Comment on above: Result Comment: Chem iluminescence Performed By: #### C VDABM #### [facility] [address] [place] [address] Dr. Karey Ordoñez References Notes [facility] Comment on above: Result Comment: Sheldon Godinez, Sheldon Maria, Roly Bass, Jeffry Summers, Hola Ordoñez, Dariela Bass., et. al. (2020). Profiling early humoral response to diagnose novel coronavirus disease (COVID-19). Clinical Infectious Diseases. Lorri Mosley et al. (2020) Profile of Specific Antibodies to SARS-CoV-2: The First Report Journal of Infection (2020), doi: https://doi.org/10.1016/j.jinf.2019.03.052 Charan Rodriguez et al. (2020). Antibody responses to SARS-CoV-2 in COVID-19 patients: the perspective application of serological tests in clinical practice. 10.1101/2019.03.18.36977980. Performed By: #### C VDABM #### [facility] [address] [place] [address] Dr. Karey Ordoñez Result Negative [facility] Comment on above: Performed By: #### C VDABM #### [facility] [address] [place] [address] Dr. Karey Ordoñez Value 0.[address] [facility] Comment on above: Result Comment: <0.8 : Negative 0.8-<1.0: Indeterminate >=1.0: Positive Performed By: #### C VDABM #### [facility] [address] [place] [address] Dr. Karey Ordoñez SARS-CoV2 IgGon 07-04-2022 SARS-CoV-2 (COVID-19) IgG IA.rapid Ql (S/P/Bld) >800.0 Normal Neg <13.0 [facility] Comment on above: Performed By: #### C VDIGG #### [facility] [address] [place], [place] [address] Dr. Karey Ordoñez SARS-CoV-2 (COVID-19) RNA RUBY+probe Ql (Unsp spec) Positive Normal [facility] Comment on above: Result Comment: Anti bodies against the SARS-CoV-2 spike protein, including the receptor binding domain (RBD) were detected. It is not yet known what level of antibody to SARS-CoV-2 spike protein correlates to immunity against developing symptomatic SARS-CoV-2 disease. This assay was performed using [employer](R) SARS-CoV-2 Trimeric S IgG assay. Performed By: #### C VDIGG #### [facility] [address] [place] [id number] Karey Ordoñez Office Visit (Cardiology)on 06-30-2022 Follow-up visit Diagnoses/Problems Assessed Benign essential hypertension (401.1) (I10) Vertigo (780.4) (R42) Morbid obesity with BMI of 45.0-49.9, adult (278.01,V85.42) (E66.01,Z68.42) Never smoker Orders Morbid obesity with BMI of 45.0-49.9, adult Healthy Weight Tips; Status:Complete - Retrospective Authorization; Done: [id number] Some eating tips that can help you lose weight.; Status:Complete - Retrospective Authorization; Done: [id number] SocHx: Never smoker Tobacco Use Screening; Status:Complete; Done: [id number] Patient Instructions Please bring all medicines, vitamins, and herbal supplements with you when you come to the office. Prescriptions will not be filled unless you are compliant with your follow up appointments or have a follow up appointment scheduled as per instruction of your physician. Refills should be requested at the time of your visit. Follow up in 2 year. Chief Complaint DENISHA MALDONADO is being seen for an annual follow-up [...] negative for complaint. Vitals Vital Signs Recorded: [id number] 09:45AM Heart Rate74, R Radial Vglwgchp155, RUE, Sitting Msulvmaix08, RUE, Sitting Height5 ft 3 in Azdkzz975 lb BMI Otliwvodct49.42 kg/m2 BSA Calculated2.23 Tobacco Useb) No PHQ-2 [...] . Abdomen: (more content not included)... Normal [employer] Tobacco Screening.on 023 Adult depression screening assessment No [facility] 250 DO Work Phone: Fall risk assessment a) No falls within the last year [facility] [address] DO Work Phone: Tobacco use status CPHS b) No [facility] [address] DO Work Phone: FREE T4on 05-12-2022 Free T4 [Mass/Vol] 1.11 ng/dL Normal 0.76-1.[address] [facility] Comment on above: Performed By: #### F T4 #### [facility] [address] [place] [address] Dr. Karey Ordoñez GLYCOHEMOGLOBIN A1Con 2022 ADA RECOMMENDATION SEE BELOW Normal [facility] Comment on above: Result Comment: ADA RECOMMENDED LIMIT 4.0 - 6.0 ADA THERAPEUTIC TARGET < 7.0 ACTION SUGGESTED > 7.0 Performed By: #### F T4 #### [facility] [address] [place] [address] Dr. Karey Ordoñez Glucose [Mass/Vol] 114 mg/dL Normal [facility] Comment on above: Performed By: #### F T4 #### [facility] [address] [place] [address] Dr. Karey Ordoñez HbA1c (Bld) [Mass fraction] 5.6 % Normal 4.5-6.2 [facility] Comment on above: Performed By: #### F T4 #### [facility] [address] [place] [address] Dr. Karey Ordoñez PROF CHEM 8 (BAS METB)on Anion gap [Moles/Vol] 13.5 mmol/L Normal [facility] Comment on above: Performed By: #### T SH, BMP #### [facility] [address] [place] [address] Dr. Karey Ordoñez Calcium [Mass/Vol] 9.1 mg/dL Normal 8.5-10.[address] [facility] Comment on above: Performed By: #### T SH, BMP #### [facility] [address] [place] [address] Dr. Karey Ordoñez Chloride [Moles/Vol] 103 mmol/L Normal 98-107 [facility] Comment on above: Performed By: #### T SH, BMP #### [facility] [address] [place] [address] Dr. Karey Ordoñez CO2 [Moles/Vol] 26.7 mmol/L Normal 21.0-32.0 [facility] Comment on above: Performed By: #### T SH, BMP #### [facility] [address] [place] [address] Dr. Karey Ordoñez Creatinine [Mass/Vol] 0.79 mg/dL Normal 0.55-1.02 [facility] Comment on above: Performed By: #### T SH, BMP #### [facility] [address] [place] [address] Dr. Karey Ordoñez EGFR-AF AUSTR[place]IAN >60 Normal >=60 [facility] Comment on above: Performed By: #### T SH, BMP #### [facility] [address] [place] [address] Dr. Karey Ordoñez EGFR-NON AF AUSTR[place]IAN >60 Normal >=60 [facility] Comment on above: Performed By: #### T SH, BMP #### [facility] [address] [place] [address] [address] Karey Ordoñez Glucose [Mass/Vol] 94 mg/dL Normal 74-106 [facility] Comment on above: Performed By: #### T SH, BMP #### [facility] [address] [place] [address] Dr. Karey Ordoñez Potassium [Moles/Vol] 4.2 mmol/L Normal 3.5-5.1 [facility] Comment on above: Performed By: #### T TAMMY, BMP #### [facility] [address] [place] [address] Dr. Karey Ordoñez Sodium [Moles/Vol] 139 mmol/L Normal 136-145 [facility] Comment on above: Performed By: #### T TAMMY, BMP #### [facility] [address] [place] [address] Dr. Karey Ordoñez Urea nitrogen [Mass/Vol] 12.0 mg/dL Normal 7.0-18.0 [facility] Comment on above: Performed By: #### T TAMMY, BMP #### [facility] [address] [place] [address] Dr. Karey Ordoñez Urea nitrogen/Creatinine [Mass ratio] 15.2 mg/mg Normal [facility] Comment on above: Performed By: #### T SH, BMP #### [facility] [address] [place] [address] Dr. Karey Ordoñez TSHon 05-12-2022 TSH 1.098 uIU/mL Normal 0.358-3.740 [facility] Comment on above: Performed By: #### T TAMMY, BMP #### [facility] [address] [place], [place] [address] Dr. Karey Ordoñez FREE T3on 02-06-2022 FREE T3 1.79 pg/mlL Critically low 2.18-3.98 [facility] Comment on above: Performed By: #### F T3, TSH #### [facility] [address] [place], [place] [address] Dr. Karey Ordoñez FREE T4on 02-06-2022 Free T4 [Mass/Vol] 1.12 ng/dL Normal 0.76-1.46 [facility] Comment on above: Performed By: #### F T4 #### [facility] [address] [place], [place] [address] Dr. Karey Ordoñez TSHon 02-06-2022 TSH 2.571 uIU/mL Normal 0.358-3.740 [facility] Comment on above: Performed By: #### F T3, TSH #### [facility] [address] [place] [address] [address] Karey Ordoñez MRI BRAIN WO CONon [...] sinus mucoperiosteal thickening Electronically authenticated by: VERO OSMAN Date: 2022-01-22 13:49 Normal [facility] CT CSPINE WO CONon 2 [...] by: LALI PATEL Date: 2022-01-18 10:22 Normal [facility] US CAROTID ART BILon 022 US [...] by: ZINA GREGORY Date: 2022-01-17 18:33 Normal [facility] CT HEAD WO CONon 01-15-2022 CT [...] acute intracranial abnormality Electronically authenticated by: VERO OSMAN Date: 2022-01-15 11:07 Normal [facility] MRI KNEE RT WO CONon 022 [...] and anterior compartments Electronically authenticated by: VERO OSMAN Date: 2021-12-18 15:05 Normal [facility] XR KNEE RT 3Von 12-10-2021 XR [...] by: VERO WILSON Date: 2021-12-10 06:40 Normal [facility] LIVER PROFILEon 10-29-2021 Albumin [Mass/Vol] 3.7 g/dL Normal 3.4-5.0 [facility] Comment on above: Performed By: #### F T4 #### [facility] [address] [place] [address] Dr. Karey Ordoñez Albumin/Globulin [Mass ratio] 0.9 {ratio} Normal [facility] Comment on above: Performed By: #### F T4 #### [facility] [address] [place] [address] Dr. Karey Ordoñez ALP [Catalytic activity/Vol] 111 U/L Normal 46-116 [facility] Comment on above: Performed By: #### F T4 #### [facility] [address] [place] [address] Dr. Karey Ordoñez ALT [Catalytic activity/Vol] 22 U/L Normal 14-59 [facility] Comment on above: Performed By: #### F T4 #### [facility] [address] [place] [address] Dr. Karey Ordoñez AST [Catalytic activity/Vol] 12 U/L Critically low 15-37 [facility] Comment on above: Performed By: #### F T4 #### [facility] [address] [place] [address] Dr. Karey Ordoñez BILI, CONJUGATED 0.1 mg/dL Normal 0.0-0.2 [facility] Comment on above: Performed By: #### F T4 #### [facility] [address] [place] [address] Dr. Karey Ordoñez Bilirubin [Mass/Vol] 0.5 mg/dL Normal 0.2-1.0 [facility] Comment on above: Performed By: #### F T4 #### [facility] [address] [place] [address] Dr. Karey Ordoñez Globulin (S) [Mass/Vol] 4.1 g/dL Normal [facility] Comment on above: Performed By: #### F T4 #### [facility] [address] [place] [address] Dr. Karey Ordoñez Protein [Mass/Vol] 7.8 g/dL Normal 6.4-8.2 [facility] Comment on above: Performed By: #### F T4 #### [facility] [address] [place] [address] Dr. Karey Ordoñez INSULINon 10-02-2021 Insulin 10.5 uIU/mL Normal 2.6-24.9 [facility] Comment on above: Performed By: #### I NSULIN #### [facility] [address] [place] [address] Dr. Karey Ordoñez CBC AUTO DIFFon 10-01-2021 BASO # 0.0 103/ul Normal 0.0-0.1 [facility] Comment on above: Performed By: #### F T4 #### [facility] [address] [place] [address] Dr. Karey Ordoñez Basophils/100 WBC (Bld) 0.4 % Normal 0.2-2.0 [facility] Comment on above: Performed By: #### F T4 #### [facility] [address] [place] [address] Dr. Karey Ordoñez EO # 0.1 103/ul Normal 0.0-0.7 [facility] Comment on above: Performed By: #### F T4 #### [facility] [address] [place] [address] Dr. Karey Ordoñez Eosinophils/100 WBC (Bld) 1.1 % Normal 0.9-7.0 [facility] Comment on above: Performed By: #### F T4 #### [facility] [address] [place] [address] Dr. Karey Ordoñez Erythrocyte distribution width (RBC) [Ratio] 12.9 % Normal 11.0-15.0 [facility] Comment on above: Performed By: #### F T4 #### [facility] [address] [place] [address] Dr. Karey Ordoñez Hematocrit (Bld) [Volume fraction] 41.5 % Normal 36.0-48.0 [facility] Comment on above: Performed By: #### F T4 #### [facility] [address] [place] [address] Dr. Karey Ordoñez Hemoglobin (Bld) [Mass/Vol] 13.0 g/dL Normal 12.0-16.0 [facility] Comment on above: Performed By: #### F T4 #### [facility] [address] [place] [address] Dr. Karey Ordoñez IG # 0.04 10e3/ul Critically high 0.00-0.03 [facility] Comment on above: Performed By: #### F T4 #### [facility] [address] [place] [address] Dr. Karey Ordoñez IG % 0.5 % Normal 0.0-0.5 [facility] Comment on above: Performed By: #### F T4 #### [facility] [address] [place] [address] Dr. Karey Ordoñez LYMPH # 1.9 103/ul Normal 1.2-3.8 [facility] Comment on above: Performed By: #### F T4 #### [facility] [address] [place] [address] Dr. Karey Ordoñez Lymphocytes/100 WBC (Bld) 22.7 % Normal 20.5-60.0 [facility] Comment on above: Performed By: #### F T4 #### [facility] [address] [place] [address] Dr. Karey Ordoñez MANUAL DIFF REQ NO Normal [facility] Comment on above: Performed By: #### F T4 #### [facility] [address] [place] [address] Dr. Karey Ordoñez MCH (RBC) [Entitic mass] 28.9 pg Normal 26.7-34.0 [facility] Comment on above: Performed By: #### F T4 #### [facility] [address] [place] [address] Dr. Karey Ordoñez MCHC (RBC) [Mass/Vol] 31.3 g/dL Normal 29.9-35.2 [facility] Comment on above: Performed By: #### F T4 #### [facility] [address] [place] [address] Dr. Karey Ordoñez MCV (RBC) [Entitic vol] 92.2 fL Normal 81.0-99.0 [facility] Comment on above: Performed By: #### F T4 #### [facility] [address] [place] [address] Dr. Karey Ordoñez MONO # 0.6 103/ul Normal 0.3-0.8 [facility] Comment on above: Performed By: #### F T4 #### [facility] [address] [place] [address] Dr. Karey Ordoñez Monocytes/100 WBC (Bld) 6.8 % Normal 1.7-12.0 [facility] Comment on above: Performed By: #### F T4 #### [facility] [address] [place] [address] Dr. Karey Ordoñez NEUT # 5.8 103/ul Normal 1.4-6.5 [facility] Comment on above: Performed By: #### F T4 #### [facility] [address] [place] [address] Dr. Karey Ordoñez Neutrophils/100 WBC (Bld) 68.5 % Normal 43.0-75.0 [facility] Comment on above: Performed By: #### F T4 #### [facility] [address] [place] [address] Dr. Karey Ordoñez Platelet mean volume (Bld) [Entitic vol] 12.8 fL Normal 9.5-13.5 [facility] Comment on above: Performed By: #### F T4 #### [facility] [address] [place] [address] Dr. Karey Ordoñez PLT 231 103/ul Normal 150-450 [facility] Comment on above: Performed By: #### F T4 #### [facility] [address] [place] [address] Dr. Karey Ordoñez RBC 4.50 106/ul Normal 4.20-5.40 [facility] Comment on above: Performed By: #### F T4 #### [facility] [address] [place] [address] Dr. Karey Ordoñez WBC 8.5 103/ul Normal 4.0-11.0 [facility] Comment on above: Performed By: #### F T4 #### [facility] [address] [address] [address] Karey Ordoñez FREE T4on 10-01-2021 Free T4 [Mass/Vol] 1.27 ng/dL Normal 0.76-1.[address] [facility] Comment on above: Performed By: #### F T4 #### [facility] [address] [address] [address] Karey Ordoñez GLYCOHEMOGLOBIN A1Con 2021 ADA RECOMMENDATION SEE BELOW Normal [facility] Comment on above: Result Comment: ADA RECOMMENDED LIMIT 4.0 - 6.0 ADA THERAPEUTIC TARGET < 7.0 ACTION SUGGESTED > 7.0 Performed By: #### A 1C #### [facility] [address] [place] [address] Dr. Karey Ordoñez Glucose [Mass/Vol] 123 mg/dL Normal [facility] Comment on above: Performed By: #### A 1C #### [facility] [address] [place] [address] Dr. Karey Ordoñez HbA1c (Bld) [Mass fraction] 5.9 % Normal 4.5-6.2 [facility] Comment on above: Performed By: #### A 1C #### [facility] [address] [place] [address] Dr. Karey Ordoñez LIPID PROFILEon 10-01-2021 CHOL-HDL RATIO NORM SEE BELOW Normal [facility] Comment on above: Result Comment: 3.3 - 4.4 LOW RISK 4.4 - 7.1 AVERAGE RISK 7.1 - 11.0 MODERATE RISK >11.0 HIGH RISK Performed By: #### F T4 #### [facility] [address] [address] [address] Karey Ordoñez Cholesterol [Mass/Vol] 182 mg/dL Normal <=200 [facility] Comment on above: Performed By: #### F T4 #### [facility] [address] [place] [address] Dr. Karey Ordoñez Cholesterol in HDL [Mass/Vol] 52 mg/dL Normal 40-60 [facility] Comment on above: Performed By: #### F T4 #### [facility] [address] [address] [address] Karey Ordoñez Cholesterol in LDL [Mass/Vol] 115.8 mg/dL Normal [facility] Comment on above: Performed By: #### F T4 #### [facility] [address] [address] [address] Karey Ordoñez Cholesterol.total/Ch olesterol in HDL [Mass ratio] 3.5 {ratio} Normal [facility] Comment on above: Performed By: #### F T4 #### [facility] [address] [address] [address] Karey Ordoñez HDL NORMAL > or = 60 mg/dl - LO W CARDIOVASCULAR RISK <40 mg/dl - HIGH CARDIOVASCULAR RISK Normal [facility] Comment on above: Performed By: #### F T4 #### [facility] [address] [address] [address] Karey Ordoñez LDL CALC NORMAL SEE BELOW Normal [facility] Comment on above: Result Comment: <100 mg/dl OPTIMAL 100 - 129 mg/dl NEAR OR ABOVE OPTIMAL 130 - 159 mg/dl BORDERLINE HIGH 160 - 189 mg/dl HIGH >190 mg/dl VERY HIGH Performed By: #### F T4 #### [facility] [address] [address] [address] Karey Ordoñez Triglyceride [Mass/Vol] 71 mg/dL Normal <=150 [facility] Comment on above: Performed By: #### F T4 #### [facility] [address] [address] [address] Karey Ordoñez VLDL CALC 14.2 mg/dL Normal [facility] Comment on above: Performed By: #### F T4 #### [facility] [address] [address] [address] Karey Ordoñez PROF 14(COMP METB)on 022 Albumin [Mass/Vol] 3.9 g/dL Normal 3.4-5.0 [facility] Comment on above: Performed By: #### F T4 #### [facility] [address] [address] [address] Karey Ordoñez Albumin/Globulin [Mass ratio] 0.9 {ratio} Normal [facility] Comment on above: Performed By: #### F T4 #### [facility] [address] [place] [address] Dr. Karey Ordoñez ALP [Catalytic activity/Vol] 117 U/L Critically high 46-116 [facility] Comment on above: Performed By: #### F T4 #### [facility] [address] [place] [address] Dr. Karey Ordoñez ALT [Catalytic activity/Vol] 25 U/L Normal 14-59 [facility] Comment on above: Performed By: #### F T4 #### [facility] [address] [place] [address] Dr. Karey Ordoñez Anion gap [Moles/Vol] 14.1 mmol/L Normal [facility] Comment on above: Performed By: #### F T4 #### [facility] [address] [place] [address] Dr. Karey Ordoñez AST [Catalytic activity/Vol] 14 U/L Critically low 15-37 [facility] Comment on above: Performed By: #### F T4 #### [facility] [address] [place] [address] Dr. Karey Ordoñez Bilirubin [Mass/Vol] 0.5 mg/dL Normal 0.2-1.0 [facility] Comment on above: Performed By: #### F T4 #### [facility] [address] [place] [address] Dr. Karey Ordoñez Calcium [Mass/Vol] 9.1 mg/dL Normal 8.5-10.1 [facility] Comment on above: Performed By: #### F T4 #### [facility] [address] [place] [address] Dr. Karey Ordoñez Chloride [Moles/Vol] 102 mmol/L Normal 98-107 [facility] Comment on above: Performed By: #### F T4 #### [facility] [address] [place] [address] Dr. Karey Ordoñez CO2 [Moles/Vol] 27.7 mmol/L Normal 21.0-32.0 [facility] Comment on above: Performed By: #### F T4 #### [facility] [address] [address] [address] Karey Ordoñez Creatinine [Mass/Vol] 0.76 mg/dL Normal 0.55-1.02 [facility] Comment on above: Performed By: #### F T4 #### [facility] [address] [address] [address] Karye Ordoñez EGFR-AF AUSTRALIAN >60 Normal >=60 [facility] Comment on above: Performed By: #### F T4 #### [facility] [address] [address] [address] Karey Ordoñez EGFR-NON AF AUSTRALIAN >60 Normal >=60 [facility] Comment on above: Performed By: #### F T4 #### [facility] [address] [place] [address] Dr. Karey Ordoñez Globulin (S) [Mass/Vol] 4.5 g/dL Normal [facility] Comment on above: Performed By: #### F T4 #### [facility] [address] [place] [address] Dr. Karey Ordoñez Glucose [Mass/Vol] 101 mg/dL Normal 74-[address] [facility] Comment on above: Performed By: #### F T4 #### [facility] [address] [place] [address] Dr. Karey Ordoñez Potassium [Moles/Vol] 3.8 mmol/L Normal 3.5-5.1 [facility] Comment on above: Performed By: #### F T4 #### [facility] [address] [place] [address] Dr. Karey Ordoñez Protein [Mass/Vol] 8.4 g/dL Critically high 6.4-8.2 T [facility] Comment on above: Performed By: #### F T4 #### [facility] [address] [place] [address] Dr. Karey Ordoñez Sodium [Moles/Vol] 140 mmol/L Normal 136-145 [facility] Comment on above: Performed By: #### F T4 #### [facility] [address] [address] [address] Karey Ordoñez Urea nitrogen [Mass/Vol] 10.0 mg/dL Normal 7.0-18.0 [facility] Comment on above: Performed By: #### F T4 #### [facility] [address] [address] [address] Karey Ordoñez Urea nitrogen/Creatinine [Mass ratio] 13.2 mg/mg Normal [facility] Comment on above: Performed By: #### F T4 #### [facility] [address] [address] [address] Karey Ordoñez TSHon 10-01-2021 TSH 2.445 uIU/mL Normal 0.358-3.740 [facility] Comment on above: Performed By: #### F T4 #### [facility] [address] [address] [address] Karey Ordoñez TSH RANGE SEE BELOW Normal [facility] Comment on above: Result Comment: <0.3 4 UIU/ml HYPERTHYROID 0.34-5.60 UIU/ml EUTHYROID >5.60 UIU/ml HYPOTHYROID Performed By: #### F T4 #### [facility] [address] [address] [address] Karey Ordoñez Vital Signs Date Time Vital Sign Value Performing Clinician Facility 02-08-2025 10:38-0400 Body height 159.08 cm Allison Mendez FACILITY MANAGER-C Work Phone: [facility] 02-08-2025 10:38-0400 Body mass index (BMI) [Ratio] 54.3 kg/m2 Allisonmich Mendez FACILITY MANAGER-C Work Phone: [facility] 02-08-2025 10:38-0400 Body weight 137.43 kg Allison Mendez FACILITY MANAGER-C Work Phone: [facility] 02-01-2025 09:03-0400 Body height 159 cm Allison Mendez FACILITY MANAGER-C Work Phone: [facility] 02-01-2025 09:03-0400 Body mass index (BMI) [Ratio] 54.5 kg/m2 Allison Aichholz FACILITY MANAGER-C Work Phone: [facility] 02-01-2025 09:03-0400 Body temperature 98.7 [degF] Allison Aichholz FACILITY MANAGER-C Work Phone: [facility] 02-01-2025 09:03-0400 Body weight 137.89 kg Allison Aichholz FACILITY MANAGER-C Work Phone: [facility] 02-01-2025 09:03-0400 Diastolic blood pressure 90 mm[Hg] Allison Aichholz FACILITY MANAGER-C Work Phone: [facility] 02-01-2025 09:03-0400 Heart rate 82 /min Allison Aichholz FACILITY MANAGER-C Work Phone: [facility] 02-01-2025 09:03-0400 Respiratory rate 18 /min Allison Aichholz FACILITY MANAGER-C Work Phone: [facility] 02-01-2025 09:03-0400 SaO2% (BldA) [Mass fraction] 96 % Allison Aichholz FACILITY MANAGER-C Work Phone: [facility] 02-01-2025 09:03-0400 Systolic blood pressure 132 mm[Hg] Allison Aichholz FACILITY MANAGER-C Work Phone: [facility] 01-26-2025 10:17-0400 Body height 159 cm Allison Aichholz FACILITY MANAGER-C Work Phone: [facility] 01-26-2025 10:17-0400 Body mass index (BMI) [Ratio] 54.5 kg/m2 Allison Aichholz FACILITY MANAGER-C Work Phone: [facility] 01-26-2025 10:17-0400 Body weight 137.8 kg Allison Aichholz FACILITY MANAGER-C Work Phone: [facility] 01-26-2025 10:17-0400 Diastolic blood pressure 80 mm[Hg] Allison Rosemaryz FACILITY MANAGER-C Work Phone: [facility] 01-26-2025 10:17-0400 Heart rate 76 /min Allison Heidihholz FACILITY MANAGER-C Work Phone: [facility] 01-26-2025 10:17-0400 Respiratory rate 18 /min Allison Heidihholz FACILITY MANAGER-C Work Phone: [facility] 01-26-2025 10:17-0400 Systolic blood pressure 118 mm[Hg] Allison Heidihholz FACILITY MANAGER-C Work Phone: [facility] 01-20-2025 09:10-0400 Body height 160 cm Lauro Osuna PA-C Work Phone: [facility] 01-20-2025 09:10-0400 Body mass index (BMI) [Ratio] 53.53 kg/m2 Lauro Osuna PA-C Work Phone: [facility] 01-20-2025 09:10-0400 Body weight 137.08 kg Lauro Osuna PA-C Work Phone: [facility] 01-20-2025 09:10-0400 Diastolic blood pressure 89 mm[Hg] [facility]-C [facility] 01-20-2025 09:10-0400 Heart rate 86 /min Lauro Osuna PA-C [facility] 01-20-2025 09:10-0400 Systolic blood pressure 134 mm[Hg] Lauro Osuna PA-C Work Phone: [facility] 12-21-2024 09:58-0400 Body mass index (BMI) [Ratio] 53.28 kg/m2 Allison Kamiholz FACILITY MANAGER Work Phone: [facility] 12-21-2024 09:58-0400 Body temperature 97.81 [degF] Allison Rosemaryz FACILITY MANAGER Work Phone: [facility] 12-21-2024 09:58-0400 Body weight 136.44 kg Allison Aichholz FACILITY MANAGER Work Phone: [facility] 12-21-2024 09:58-0400 Diastolic blood pressure 100 mm[Hg] Allison Aichholz FACILITY MANAGER Work Phone: [facility] 12-21-2024 09:58-0400 Heart rate 86 /min Allison Aichholz FACILITY MANAGER Work Phone: [facility] 12-21-2024 09:58-0400 Respiratory rate 20 /min Allison Aichholz FACILITY MANAGER Work Phone: [facility] 12-21-2024 09:58-0400 SaO2% (BldA) [Mass fraction] 97 % Allison Aichholz FACILITY MANAGER Work Phone: [facility] 12-21-2024 09:58-0400 Systolic blood pressure 140 mm[Hg] Allison Aichholz FACILITY MANAGER Work Phone: [facility] 12-01-2024 11:09-0400 Body height 159 cm Allison Aichholz Work Phone: [facility] 12-01-2024 11:09-0400 Body mass index (BMI) [Ratio] 53.6 kg/m2 Allison Aichholz Work Phone: [facility] 12-01-2024 11:09-0400 Body weight 135.6 kg Allison Aichholz Work Phone: [facility] 12-01-2024 11:09-0400 Diastolic blood pressure 84 mm[Hg] Allison Aichholz Work Phone: [facility] 12-01-2024 11:09-0400 Heart rate 102 /min Allison Aichholz Work Phone: [facility] 12-01-2024 11:09-0400 Respiratory rate 18 /min Allison Aichholz Work Phone: [facility] 12-01-2024 11:09-0400 Systolic blood pressure 135 mm[Hg] Allison Aichholz Work Phone: [facility] 11-09-2024 09:45-0400 Diastolic blood pressure 92 mm[Hg] Allison Aichholz FACILITY MANAGER Work Phone: [facility] 11-09-2024 09:45-0400 Systolic blood pressure 146 mm[Hg] Allison Aichholz FACILITY MANAGER Work Phone: [facility] 11-09-2024 09:22-0400 Body mass index (BMI) [Ratio] 54.17 kg/m2 Allison Aichholz FACILITY MANAGER Work Phone: [facility] 11-09-2024 09:22-0400 Body temperature 98.49 [degF] Allison Aichholz FACILITY MANAGER Work Phone: [facility] 11-09-2024 09:22-0400 Body weight 138.71 kg Allison Aichholz FACILITY MANAGER Work Phone: [facility] 11-09-2024 09:22-0400 Heart rate 77 /min Allison Aichholz FACILITY MANAGER Work Phone: [facility] 11-09-2024 09:22-0400 Respiratory rate 20 /min Allison Aichholz FACILITY MANAGER Work Phone: [facility] 11-09-2024 09:22-0400 SaO2% (BldA) [Mass fraction] 97 % Allison Aichholz FACILITY MANAGER Work Phone: [facility] 10-18-2024 09:27-0400 Body height 159 cm [facility] 10-18-2024 09:27-0400 Body mass index (BMI) [Ratio] 53.4 kg/m2 [facility] 10-18-2024 09:27-0400 Body weight 135.25 kg [facility] 10-18-2024 09:27-0400 Diastolic blood pressure 92 mm[Hg] [facility] 10-18-2024 09:27-0400 Heart rate 80 /min [facility] 10-18-2024 09:27-0400 Respiratory rate 18 /min [facility] 10-18-2024 09:27-0400 Systolic blood pressure 138 mm[Hg] [facility] 07-13-2024 15:38-0500 Body height 160 cm Stephany Louann DO Work Phone: [facility] 07-13-2024 15:38-0500 Body mass index (BMI) [Ratio] 50.31 kg/m2 Stephany Louann DO Work Phone: [facility] 07-13-2024 15:38-0500 Body weight 128.82 kg Stephany Louann DO Work Phone: [facility] 07-13-2024 15:38-0500 Diastolic blood pressure 84 mm[Hg] Stephany Louann DO Work Phone: [facility] 07-13-2024 15:38-0500 Heart rate 96 /min Stephany Louann DO Work Phone: [facility] 07-13-2024 15:38-0500 SaO2% (BldA) [Mass fraction] 96 % Stephany Louann DO Work Phone: [facility] 07-13-2024 15:38-0500 Systolic blood pressure 130 mm[Hg] Stephany Louann DO Work Phone: [facility] 07-05-2024 09:35-0500 Body height 160 cm Allison Mendez FACILITY MANAGER Work Phone: [facility] 07-05-2024 09:35-0500 Body mass index (BMI) [Ratio] 51.09 kg/m2 Allison Mendez FACILITY MANAGER Work Phone: [facility] 07-05-2024 09:35-0500 Body temperature 98.29 [degF] Allison Mendez FACILITY MANAGER Work Phone: [facility] 07-05-2024 09:35-0500 Body weight 130.82 kg Alliosn Kamiholz FACILITY MANAGER Work Phone: [facility] 07-05-2024 09:35-0500 Diastolic blood pressure 86 mm[Hg] Allison Heidihholz FACILITY MANAGER Work Phone: [facility] 07-05-2024 09:35-0500 Heart rate 92 /min Allison Aichholz FACILITY MANAGER Work Phone: [facility] 07-05-2024 09:35-0500 Respiratory rate 19 /min Allison Aichholz FACILITY MANAGER Work Phone: [facility] 07-05-2024 09:35-0500 SaO2% (BldA) [Mass fraction] 99 % Allison Heidihholz FACILITY MANAGER Work Phone: [facility] 07-05-2024 09:35-0500 Systolic blood pressure 122 mm[Hg] Allison Aichholz FACILITY MANAGER Work Phone: [facility] 05-24-2024 09:22-0500 Body height 160 cm Allison Heidihholz FACILITY MANAGER Work Phone: [facility] 05-24-2024 09:22-0500 Body mass index (BMI) [Ratio] 50.45 kg/m2 Allison Heidihholz FACILITY MANAGER Work Phone: [facility] 05-24-2024 09:22-0500 Body temperature 98.29 [degF] Allison Heidihholz FACILITY MANAGER Work Phone: [facility] 05-24-2024 09:22-0500 Body weight 129.18 kg Allison Heidihholz FACILITY MANAGER Work Phone: [facility] 05-24-2024 09:22-0500 Diastolic blood pressure 100 mm[Hg] Allison Aichholz FACILITY MANAGER Work Phone: [facility] 05-24-2024 09:22-0500 Heart rate 84 /min Allison Aichholz FACILITY MANAGER Work Phone: [facility] 05-24-2024 09:22-0500 Respiratory rate 20 /min Allisonmich Rileyz FACILITY MANAGER Work Phone: [facility] 05-24-2024 09:22-0500 SaO2% (BldA) [Mass fraction] 97 % Allison Kamiholz FACILITY MANAGER Work Phone: [facility] 05-24-2024 09:22-0500 Systolic blood pressure 130 mm[Hg] Allison Kamiholz FACILITY MANAGER Work Phone: [facility] 04-12-2024 13:08-0500 Body height 160 cm Allison Kamiholz FACILITY MANAGER Work Phone: [facility] 04-12-2024 13:08-0500 Body mass index (BMI) [Ratio] 49.21 kg/m2 Allison Kamiholz FACILITY MANAGER Work Phone: [facility] 04-12-2024 13:08-0500 Body temperature 98.29 [degF] Allison Kamiholz FACILITY MANAGER Work Phone: [facility] 04-12-2024 13:08-0500 Body weight 126.01 kg Allison Heidihholz FACILITY MANAGER Work Phone: [facility] 04-12-2024 13:08-0500 Diastolic blood pressure 86 mm[Hg] Allison Kamiholz FACILITY MANAGER Work Phone: [facility] 04-12-2024 13:08-0500 Heart rate 90 /min Allison Kamiholz FACILITY MANAGER Work Phone: [facility] 04-12-2024 13:08-0500 Respiratory rate 17 /min Allison Kamiholz FACILITY MANAGER Work Phone: [facility] 04-12-2024 13:08-0500 SaO2% (BldA) [Mass fraction] 99 % Allison Kamiholz FACILITY MANAGER Work Phone: [facility] 04-12-2024 13:08-0500 Systolic blood pressure 128 mm[Hg] Allison Aichholz FACILITY MANAGER Work Phone: [facility] 04-11-2024 11:31-0500 Body height 160 cm Mary Simmons PROOFER-CRM CONSULTANT Work Phone: [facility] 04-11-2024 11:31-0500 Body mass index (BMI) [Ratio] 48.36 kg/m2 Mary Simmons PROOFER-CRM CONSULTANT Work Phone: [facility] 04-11-2024 11:31-0500 Body weight 123.83 kg Mary Simmons PROOFER-CRM CONSULTANT Work Phone: [facility] 04-11-2024 11:31-0500 Diastolic blood pressure 76 mm[Hg] Mary Simmons PROOFER-CRM CONSULTANT Work Phone: [facility] 04-11-2024 11:31-0500 Heart rate 82 /min Mary Simmons PROOFER-CRM CONSULTANT Work Phone: [facility] 04-11-2024 11:31-0500 Systolic blood pressure 122 mm[Hg] Mary Simmons PROOFER-CRM CONSULTANT Work Phone: [facility] 03-09-2024 09:11-0400 Body height 160 cm Allison Rosemaryz FACILITY MANAGER Work Phone: [facility] 03-09-2024 09:11-0400 Body mass index (BMI) [Ratio] 48.22 kg/m2 Allison Aichholz FACILITY MANAGER Work Phone: [facility] 03-09-2024 09:11-0400 Body temperature 98.01 [degF] Allison Heidihholz FACILITY MANAGER Work Phone: [facility] 03-09-2024 09:11-0400 Body weight 123.47 kg Allison Aichholz FACILITY MANAGER Work Phone: [facility] 03-09-2024 09:11-0400 Diastolic blood pressure 100 mm[Hg] Allison Aichholz FACILITY MANAGER Work Phone: [facility] 03-09-2024 09:11-0400 Heart rate 71 /min Allison Aichholz FACILITY MANAGER Work Phone: [facility] 03-09-2024 09:11-0400 Respiratory rate 19 /min Allison Mendez FACILITY MANAGER Work Phone: [facility] 03-09-2024 09:11-0400 SaO2% (BldA) [Mass fraction] 98 % Allison Mendez FACILITY MANAGER Work Phone: [facility] 03-09-2024 09:11-0400 Systolic blood pressure 128 mm[Hg] Allison Vanessa FACILITY MANAGER Work Phone: [facility] 02-17-2023 08:48-0400 Body weight 126.55 kg Jennifer Dewitt MD Work Phone: [facility] 02-17-2023 08:48-0400 Diastolic blood pressure 82 mm[Hg] Jennifer Dewitt MD Work Phone: [facility] 02-17-2023 08:48-0400 Heart rate 96 /min Jennifer Dewitt MD Work Phone: [facility] 02-17-2023 08:48-0400 SaO2% (BldA) [Mass fraction] 98 % Jennifer Dewitt MD Work Phone: [facility] 02-17-2023 08:48-0400 Systolic blood pressure 116 mm[Hg] Jennifer Dewitt MD Work Phone: [facility] 06-30-2022 09:45-0500 Body height 160.02 cm [facility] Work Phone: 06-30-2022 09:45-0500 Body mass index (BMI) [Ratio] 49.42 kg/m2 Allison Mendez Work Phone: [facility] 250 DO Work Phone: 06-30-2022 09:45-0500 Body surface area Derived from formula 2.23 m2 Allison Mendez Work Phone: [facility] 250 DO Work Phone: 06-30-2022 09:45-0500 Body weight 126.55 kg Allison Bullock Vanessa Work Phone: [facility] 250 DO Work Phone: 06-30-2022 09:45-0500 Diastolic blood pressure 80 mm[Hg] Allison Ara Mendez Work Phone: [facility] 250 DO Work Phone: 06-30-2022 09:45-0500 Heart rate 74 /min Allison Ara Mendez Work Phone: [facility] DO Work Phone: 06-30-2022 09:45-0500 Systolic blood pressure 128 mm[Hg] Allison Ara Mendez Work Phone: [facility] 250 DO Work Phone: Encounters Encounter Date Encounter Type Care Provider Facility Start: 02-17-2025 End: 02-17-2025 ambulatory [facility] Start: 02-16-2025 End: 02-16-2025 ambulatory [facility] Start: 02-10-2025 End: 02-14-2025 Telephone encounter Jose Enrique Toussaint [facility] Neurology, A Department of [facility] Comment on above: MR BRAIN IAC Start: 02-08-2025 End: 02-08-2025 ambulatory Allison Mendez FACILITY MANAGER-C Work Phone: [facility] Work Phone: Start: 02-08-2025 End: 02-08-2025 Patient encounter procedure Tasia Stewart [facility] Work Phone: Start: 02-01-2025 End: 02-01-2025 ambulatory Allison Mendez FACILITY MANAGER-C Work Phone: [facility] Work Phone: Start: 02-01-2025 End: 02-01-2025 Patient encounter procedure Allison Mendez FACILITY MANAGER-C -[facility] Work Phone: Start: 01-26-2025 End: 01-26-2025 ambulatory Allison Mendez FACILITY MANAGER-C Work Phone: [facility] Work Phone: Start: 01-26-2025 End: 01-26-2025 Patient encounter procedure Diya Vela [facility] Work Phone: Start: 01-20-2025 End: 01-20-2025 Office outpatient new 45 minutes Lauro Osuna PA-C Work Phone: [facility] [place] Comment on above: Dizziness (Primary D x); Paresthesias; Fibromyalgia; Morning headache Start: 01-20-2025 End: 01-20-2025 [facility] Start: 12-21-2024 End: 12-21-2024 Bamboo flowsheet Allison Mendez FACILITY MANAGER Work Phone: [facility] Start: 12-21-2024 End: 12-21-2024 Bamboo flowsheet Allison Mendez FACILITY MANAGER Work Phone: [facility] Start: 12-21-2024 End: 12-21-2024 Office outpatient visit 25 minutes Allison Mendez FACILITY MANAGER Work Phone: [facility] Comment on above: Primary hypertension (Primary Dx); Morbid (severe) obesity due to excess calories ([facility]); Panic attack Start: 12-21-2024 End: 12-21-2024 ambulatory ALLISON VANESSA Not Available Start: 12-07-2024 End: 12-07-2024 ambulatory Allison Mendez Work Phone: [facility] Work Phone: Start: 12-07-2024 End: 12-07-2024 Patient encounter procedure Tasia Stewart [facility] Work Phone: Start: 12-01-2024 End: 12-01-2024 ambulatory Allison Mendez Work Phone: [facility] Work Phone: Start: 12-01-2024 End: 12-01-2024 Patient encounter procedure Diya Vela [facility] Work Phone: Start: 11-09-2024 End: 11-09-2024 Bamboo flowsheet Allison Mendez FACILITY MANAGER Work Phone: [facility] Start: 11-09-2024 End: 11-09-2024 Bamboo flowsheet Allison Gordonhshalini FACILITY MANAGER Work Phone: [facility] Start: 11-09-2024 End: 11-09-2024 Office outpatient visit 25 minutes Allison Mendez FACILITY MANAGER Work Phone: [facility] Comment on above: Primary hypertension (Primary Dx); Morbid (severe) obesity due to excess calories ([facility]); Type 2 diabetes mellitus without complication, without long-term current use of insulin (HCC); Mixed hyperlipidemia ; Panic attack ; Hypothyroidism (acquired) ; Tachycardia Start: 11-09-2024 End: 11-09-2024 ambulatory ALLISON MENDEZ Not Available Start: 11-08-2024 End: 11-08-2024 [facility] Start: 10-28-2024 End: 10-28-2024 Patient encounter procedure Tasia Stewart [facility] Work Phone: Start: 10-18-2024 End: 10-18-2024 ambulatory [facility] Work Phone: Start: 10-18-2024 End: 10-18-2024 Patient encounter procedure [facility] Work Phone: Start: 09-29-2024 End: 09-29-2024 ambulatory ALLISON AICHHOLZ Not Available Start: 07-25-2024 End: 07-25-2024 Bamboo flowsheet Stephany Louann DO Work Phone: [facility] Start: 07-25-2024 End: 07-25-2024 Bamboo flowsheet Stephany Louann DO Work Phone: [facility] Start: 07-25-2024 End: 07-25-2024 ambulatory STEPHANY LOUANN Not Available Start: 07-20-2024 End: 07-20-2024 Patient encounter procedure Stephany Louann DO Work Phone: [facility] Comment on above: Low back pain at mul tiple sites; Numbness and tingling Start: 07-20-2024 End: 07-20-2024 ambulatory STEPHANY LOUANN Not Available Start: 07-14-2024 End: 07-14-2024 Refill Allison Aichholz FACILITY MANAGER Work Phone: [facility] Comment on above: Type 2 diabetes aruna itus without complication, without long- term current use of insulin ([facility]); Primary hypertension ([facility]/HCC) Start: 07-13-2024 End: 07-13-2024 Office outpatient visit 40 minutes Stephany Louann DO Work Phone: [facility] Comment on above: Low back pain at mul tiple sites (Primary Dx); Numbness and tingling; IRENE (obstructive sleep apnea); Insomnia due to medical condition; Class 3 severe obesity with serious comorbidity and body mass index (BMI) of 50.0 to 59.9 in adult, unspecified obesity type (CMS/HCC); Sleep deprivation; Word finding difficulty Start: 07-13-2024 End: 07-13-2024 ambulatory STEPHANY LOUANN Not Available Start: 07-13-2024 End: 07-13-2024 Bamboo flowsheet Stephany Louann DO Work Phone: [facility] Start: 07-13-2024 End: 07-13-2024 Bamboo flowsheet Stephany Louann DO Work Phone: [facility] Start: 07-05-2024 End: 07-05-2024 Bamboo flowsheet Allisonmich Mendez FACILITY MANAGER Work Phone: [facility] Start: 07-05-2024 End: 07-05-2024 Bamboo flowsheet Allison Vanessa FACILITY MANAGER Work Phone: [facility] Start: 07-05-2024 End: 07-05-2024 Clinisync Result Encounter Allison Mendez FACILITY MANAGER Work Phone: [facility] External Department Unsolicited Start: 07-05-2024 End: 07-05-2024 Office outpatient visit 25 minutes Allisonmich Mendez FACILITY MANAGER Work Phone: [facility] Comment on above: Type 2 diabetes aruna itus without complication, without long- term current use of insulin ([facility]) (Primary Dx); Primary hypertension (CMS/HCC); BMI 45.0-49.9, adult (CMS/HCC); Morbid (severe) obesity due to excess calories (CMS/HCC); Vitamin D deficiency; Difficulty walking; Mixed hyperlipidemia (CMS/HCC); Hypothyroidism (acquired) (CMS/[facility]); Fatigue, unspecified type; Tachycardia; Strain of right biceps muscle, initial encounter Start: 07-05-2024 End: 07-05-2024 ambulatory ALLISON HEIDIHHOLZ Not Available Start: 06-26-2024 End: 06-26-2024 Refill Allison Vanessa FACILITY MANAGER Work Phone: [facility] Comment on above: Panic attack (CMS/HC C) Start: 05-24-2024 End: 05-24-2024 Bamboo flowsheet Allison Vanessa FACILITY MANAGER Work Phone: [facility] Start: 05-24-2024 End: 05-24-2024 Bamboo flowsheet Allison Vanessa FACILITY MANAGER Work Phone: [facility] Start: 05-24-2024 End: 05-24-2024 Office outpatient visit 25 minutes Allison Aichholz FACILITY MANAGER Work Phone: [facility] Comment on above: Primary hypertension (CMS/HCC) (Primary Dx); Morbid (severe) obesity due to excess calories (CMS/HCC); Body mass index (BMI) 45.0-49.9, adult (CMS/HCC); Malignant neoplasm of endometrium (CMS/HCC); Tachycardia; Fibromyalgia; Hypothyroidism (acquired) (CMS/HCC); Type 2 diabetes mellitus without complication, without long-term current use of insulin (CMS/HCC); Panic attack (CMS/HCC) Start: 05-24-2024 End: 05-24-2024 ambulatory ALLISON AICHHOLZ Not Available Start: 05-12-2024 End: 05-12-2024 Refill Allison Aichholz FACILITY MANAGER Work Phone: [facility] Comment on above: Panic attack (CMS/HC C) Start: 05-09-2024 End: 05-09-2024 Refill Allison Aichholz FACILITY MANAGER Work Phone: [facility] Comment on above: Vitamin D deficiency Start: 05-03-2024 End: 05-03-2024 Refill Allison Aichholz FACILITY MANAGER Work Phone: [facility] Comment on above: Primary hypertension (CMS/HCC); Type 2 diabetes mellitus without complication, without long-term current use of insulin (CMS/HCC) Start: 04-19-2024 End: 04-19-2024 Refill Allison Aichholz FACILITY MANAGER Work Phone: [facility] Comment on above: Type 2 diabetes aruna itus without complication, without long- term current use of insulin (CMS/HCC); Vitamin D deficiency Start: 04-12-2024 End: 04-12-2024 Bamboo flowsheet Allison Aichholz FACILITY MANAGER Work Phone: [facility] Start: 04-12-2024 End: 04-12-2024 Bamboo flowsheet Allison Aichholz FACILITY MANAGER Work Phone: [facility] Start: 04-12-2024 End: 04-12-2024 Office outpatient visit 25 minutes Allison Mendez FACILITY MANAGER Work Phone: [facility] Comment on above: Panic attack (CMS/HC C) (Primary Dx); Primary hypertension (CMS/HCC); Fibromyalgia; Class 3 severe obesity due to excess calories without serious comorbidity with body mass index (BMI) of 45.0 to 49.9 in adult (CMS/HCC); BMI 45.0-49.9, adult (CMS/HCC); Chronic otitis externa of left ear, unspecified type; Vertigo; Difficulty walking Start: 04-12-2024 End: 04-12-2024 ambulatory ALLISON MENDEZ Not Available Start: 04-11-2024 End: 04-11-2024 Office outpatient visit 10 minutes Mary Torres Martha PROOFER-CRM CONSULTANT Work Phone: [facility] Comment on above: Benign essential hyp ertension (Primary Dx); BMI 45.0-49.9, adult (Multi) Start: 04-11-2024 End: 04-11-[address] [facility] Amb[facility] Start: 03-24-2024 End: 03-25-2024 Refill Allison Mendez FACILITY MANAGER Work Phone: [facility] Comment on above: Mixed hyperlipidemia (CMS/HCC) Start: 03-21-2024 End: 03-21-2024 Bamboo flowsheet Leida Gifford FACILITY MANAGER Work Phone: [facility] Start: 03-21-2024 End: 03-21-2024 Bamboo flowsheet Leida Gifford FACILITY MANAGER Work Phone: [facility] Start: 03-21-2024 End: 03-21-2024 Office outpatient visit 25 minutes Leida Gifford FACILITY MANAGER Work Phone: [facility] Comment on above: Right knee pain, uns pecified chronicity (Primary Dx); Arthritis of right knee Start: 03-21-2024 End: 03-21-2024 ambulatory LEIDA GIFFORD Not Available Start: 03-16-2024 End: 03-16-2024 Office outpatient visit 25 minutes Leida Gifford FACILITY MANAGER Work Phone: [facility] Comment on above: Right knee pain, uns pecified chronicity (Primary Dx); Arthritis of right knee; Left knee pain, unspecified chronicity; Arthritis of left knee Start: 03-16-2024 End: 03-16-2024 ambulatory LEIDA GIFFORD Not Available Start: 03-15-2024 End: 03-15-2024 Bamboo flowsheet Lencho Mckee MAN[employer]FA[employer]URING [employer] [facility] Start: 03-15-2024 End: 03-15-2024 Bamboo flowsheet Lencho Mckee MANUFACTURING [employer] [facility] Start: 03-15-2024 End: 03-15-2024 ambulatory Lencho Mckee MANUFACTURING [employer] [facility] Comment on above: Radiculopathy, lumba r region (Primary Dx) Start: 03-14-2024 End: 03-14-2024 Refill Allison Aichholz FACILITY MANAGER Work Phone: [facility] Comment on above: Tachycardia Start: 03-10-2024 End: 03-10-2024 Refill Allison Aichholz FACILITY MANAGER Work Phone: [facility] Comment on above: Type 2 diabetes aruna itus without complication, without long- term current use of insulin (CMS/HCC) Start: 03-09-2024 End: 03-09-2024 Clinisync Result Encounter Allison Aichphamz FACILITY MANAGER Work Phone: [facility] External Department Unsolicited Start: 03-09-2024 End: 03-09-2024 Clinisync Result Encounter Allison Aichholz FACILITY MANAGER Work Phone: [facility] External Department Unsolicited Start: 03-09-2024 End: 03-09-2024 Office outpatient visit 25 minutes Allisonmich Mendez FACILITY MANAGER Work Phone: [facility] Comment on above: Primary hypertension (CMS/HCC) (Primary Dx); Tachycardia; Type 2 diabetes mellitus without complication, without long-term current use of insulin (CMS/HCC); Vitamin D deficiency; Hypothyroidism (acquired) (CMS/[facility]); Encounter for screening mammogram for malignant neoplasm of breast; Mixed hyperlipidemia (CMS/HCC); Panic attack (CMS/HCC); Arthritis of both knees; Class 3 severe obesity due to excess calories without serious comorbidity with body mass index (BMI) of 45.0 to 49.9 in adult (CMS/HCC); Fibromyalgia Start: 03-09-2024 End: 03-09-2024 ambulatory ALLISON VANESSA Not Available Start: 03-08-2024 End: 03-09-2024 ambulatory Lencho Mckee [employer] [facility] Comment on above: Radiculopathy, lumba r region (Primary Dx) Start: 03-08-2024 End: 03-08-2024 Bamboo flowsheet Lencho Mckee [employer] [facility] Start: 03-08-2024 End: 03-08-2024 Bamboo flowsheet Lencho Shahab [employer] [facility] Start: 02-29-2024 End: 02-29-2024 Refill Allison Vanessa FACILITY MANAGER Work Phone: [facility] Comment on above: Tachycardia Start: 02-25-2024 End: 02-25-2024 Bamboo flowsheet Lencho Mckee [employer] [facility] Start: 02-25-2024 End: 02-25-2024 Bamboo flowsheet Lencho Mckee [employer]FA[employer]ING [employer] [facility] Start: 02-25-2024 End: 02-25-2024 ambulatory Lencho Mckee [employer]FA[employer]ING [employer] [facility] Comment on above: Radiculopathy, lumba r region (Primary Dx) Start: 02-23-2024 End: 02-24-2024 ambulatory Lencho Mckee [employer]FACTURING [employer] [facility] Comment on above: Radiculopathy, lumba r region (Primary Dx) Start: 02-23-2024 End: 02-23-2024 Bamboo flowsheet Lencho Shahab [employer]FA[employer]ING [employer] [facility] Start: 02-23-2024 End: 02-23-2024 Bamboo flowsheet Lencho Shahab [employer]FA[employer]ING [employer] [facility] Start: 02-18-2024 End: 02-18-2024 Bamboo flowsheet Lencho Shahab [employer]FA[employer]ING [employer] [facility] Start: 02-18-2024 End: 02-18-2024 Bamboo flowsheet Lencho Shahab MANUFACTURING [employer] [facility] Start: 02-18-2024 End: 02-18-2024 ambulatory Lencho Mckee MANUFACTURING [employer] [facility] Comment on above: Radiculopathy, lumba r region (Primary Dx) Start: 02-16-2024 End: 02-16-2024 Bamboo flowsheet Lencho Mckee MANUFACTURING [employer] [facility] Start: 02-16-2024 End: 02-16-2024 Bamboo flowsheet Lencho Mckee MAN[employer]FA[employer]URING [employer] [facility] Start: 02-16-2024 End: 02-16-2024 ambulatory Lencho Mckee MANUFACTURING [employer] [facility] Comment on above: Radiculopathy, lumba r region (Primary Dx) Start: 02-11-2024 End: 02-11-2024 Bamboo flowsheet Lencho Mckee MANUFACTURING [employer] [facility] Start: 02-11-2024 End: 02-11-2024 Bamboo flowsheet Lencho Mckee MANUFA[employer]URING [employer] [facility] Start: 02-11-2024 End: 02-11-2024 ambulatory Lencho Mckee MANUFACTURING [employer] [facility] Comment on above: Radiculopathy, lumba r region (Primary Dx) Start: 02-09-2024 End: 02-09-2024 ambulatory Lencho Mckee MANUFACTURING [employer]IT[employer] [facility] Comment on above: Radiculopathy, lumba r region (Primary Dx) Start: 02-04-2024 End: 02-04-2024 ambulatory Lencho Mckee MANUFACTURING [employer] [facility] Comment on above: Radiculopathy, lumba r region (Primary Dx) Start: 02-04-2024 End: 02-04-2024 Bamboo flowsheet Lencho Mckee MANUFA[employer]URING [employer] [facility] Start: 02-04-2024 End: 02-04-2024 Bamboo flowsheet Lencho Mckee MANUFACTURING [employer] [facility] Start: 02-01-2024 End: 02-01-2024 Bamboo flowsheet Lencho Mckee MANUFACTURING [employer] [facility] Start: 02-01-2024 End: 02-01-2024 Bamboo flowsheet Lencho Mckee MANUFACTURING [employer] TITLES [facility] Start: 02-01-2024 End: 02-01-2024 ambulatory Lencho Mckee MANUFACTURING [employer] TITLES [facility] Comment on above: Radiculopathy, lumba r region (Primary Dx) Start: 01-29-2024 End: 01-29-2024 Bamboo flowsheet Lencho Mckee MANUFACTURING [employer] [facility] Start: 01-29-2024 End: 01-29-2024 Bamboo flowsheet Lencho Mckee MANUFACTURING [employer] [facility] Start: 01-29-2024 End: 01-29-2024 ambulatory Lencho Mckee MANUFACTURING [employer] [facility] Comment on above: Radiculopathy, lumba r region (Primary Dx) Start: 01-25-2024 End: 01-25-2024 Bamboo flowsheet Martina Lyn PT [facility] Start: 01-25-2024 End: 01-25-2024 Bamboo flowsheet Martina Lyn PT [facility] Start: 01-25-2024 End: 01-25-2024 ambulatory Martina Lyn PT [facility] Comment on above: Radiculopathy, lumba r region (Primary Dx) Start: 01-06-2024 End: 01-06-2024 Refill Allison Mendez FACILITY MANAGER Work Phone: [facility] Comment on above: Type 2 diabetes aruna itus without complication, without long- term current use of insulin ([facility]) Start: 12-07-2023 End: 12-07-2023 ambulatory Patrick Parks MD Facility: [facility] Start: 11-02-2023 End: 11-02-2023 ambulatory Patrick Parks MD Facility: [facility] Start: 10-19-2023 End: 10-19-2023 ambulatory Patrick Parks MD Facility: [facility] Start: 10-12-2023 End: 10-12-2023 ambulatory Patrick Parks MD Facility: [facility] Start: 09-07-2023 End: 09-07-2023 ambulatory [facility] Start: 08-31-2023 Chart abstracting Dino myers [facility] Work Phone: [facility] Comment on above: Genetics- parental t esting Start: 07-15-2023 Orders Only Taqueria Solis MD Work Phone: [facility] Comment on above: Elevated partial thr omboplastin time (PTT) (Primary Dx) Start: 02-17-2023 End: 02-18-2023 ambulatory JENNIFER DEWITT Facility:[facility] Start: 02-17-2023 End: 02-17-2023 Office outpatient new 60 minutes Jennifer Dewitt MD Work Phone: Rheumatology Comment on above: Fibromyalgia (Primar y Dx); Sedimentation rate elevation; Fatigue, unspecified type; Vitamin D deficiency Start: 07-07-2022 Encounter for antibo dy response examination CRM CONSULTANT ALLISONMich MENDEZ [facility] Start: 07-03-2022 End: 07-04-2022 ambulatory CRM CONSULTANT ALLISON HEIDIRasheedSHALINI Facility:[facility] Start: 07-03-2022 End: 07-04-2022 Encounter for antibody response examination CRM CONSULTANT ALLISON HEIDIRasheedSHALINI Facility:[facility] Start: 06-30-2022 Office outpatient vi sit 15 minutes Allison Bullock Heidirasheedphamlorri Work Phone: [facility] 250 DO Work Phone: Start: 06-30-[address] [facility] Facility: Start: 05-12-2022 End: 05-13-2022 ambulatory LAURO ANDREWS HEIDIRasheedSHALINI Facility:[facility] Start: 03-04-2022 End: 03-04-2022 ambulatory JESSE HATCH Facility:[facility] Start: 02-06-2022 End: 02-07-2022 ambulatory CRM CONSULTANT ALLISON HEIDIRasheedSHALINI Facility:[facility] Start: 01-22-2022 End: 01-23-2022 ambulatory CRM CONSULTANT ALLISON HEIDIRasheedSHALINI Facility:[facility] Start: 01-18-2022 End: 01-18-2022 ambulatory CRM CONSULTANT ALLISON HEIDIRasheedSHALINI Facility:[facility] Start: 01-17-2022 End: 01-18-2022 ambulatory CRM CONSULTANT ALLISON HEIDIRasheedSHALINI Facility:[facility] Start: 01-15-2022 End: 01-15-2022 ambulatory CRM CONSULTANT ALLISON HEIDIRasheedHOLZ Facility:[facility] Start: 12-18-2021 End: 12-19-2021 ambulatory CRM CONSULTANT ALLISON KAMIHOLZ Facility:[facility] Start: 12-09-2021 End: 12-10-2021 ambulatory SHAIKH Rasheed LARA Facility:[facility] Start: 10-29-2021 End: 10-30-2021 ambulatory CRM CONSULTANT ALLISON AICHHOLZ Facility:[facility] Start: 10-01-2021 End: 10-02-2021 ambulatory CRM CONSULTANT ALLISON AICRasheedHOLZ Facility:[facility] Start: 08-13-2021 End: 10-01-2021 ambulatory CRM CONSULTANT ALLISON AICHHOLZ Facility:[facility] Procedures Date Procedure Procedure Detail Performing Clinician Start: 01-20-2025 Adult depression screening assessment Lauro Osuna PA-C Work Phone: Start: 11-09-2024 Hemoglobin glycosyla allyssa a1c Allison Aichholz FACILITY MANAGER Work Phone: Start: 07-20-2024 End: 07-20-2024 Needle emg ea extremty w/paraspinl area complete Stephany Lew DO Work Phone: Start: 07-05-2024 ALL CBC WITH AUTO DIFF Allison Aichholz FACILITY MANAGER Work Phone: Start: 07-05-2024 Hemoglobin glycosyla allyssa a1c Allison Aichholz FACILITY MANAGER Work Phone: Start: 03-22-2024 Mammography Leida Cotton ng FACILITY MANAGER Work Phone: Start: 03-21-2024 Arthrocentesis aspir&/inj major jt/bursa w/o us Leida Gifford FACILITY MANAGER Work Phone: Start: 03-16-2024 Arthrocentesis aspir&/inj major jt/bursa w/o us Leida Rodarte Apldayana FACILITY MANAGER Work Phone: Start: 03-09-2024 MLR HEMOGLOBIN A1C Allison Aichholz FACILITY MANAGER Work Phone: Start: 04-14-2023 Adult depression screening assessment Taqueria Solis MD Work Phone: Start: 06-27-2021 H/O: hysterectomy History of hysterectomy Diya Vela DNP Start: 02-13-2021 Microscopic observat ion [Identifier] in Cervix by Cyto stain Lencho Mckee PTA Arthroscopy of knee Allison Mcclurehollorri Work Phone: section Allison Gordon hholz Work Phone: Dilation and curettage Allison Mcclureholz Work Phone: Hysterectomy Allison Mcclurehol z Work Phone: NEGATED: Highlighted row has not occurred! Colonoscopy Allison Mcclurehollorri Work Phone: Plan of Treatment Date Care Activity Detail Author Start: 12-25-2033 Zoster Vaccines (1 of 2) Zoster Vaccines (1 of 2) [facility] Start: 01-20-2026 Adult BMI Screening Adult BMI Screening [facility] Start: 01-20-2026 Depression Screening Depression Screening [facility] Start: 01-20-2026 Tobacco Screening Tobacco Screening [facility] Start: 08-09-2025 Glaucoma screening Diabetes: Retinopathy Screening [facility] Start: 07-05-2025 Urine screening for protein Diabetes: Urine Protein Screening [facility] Start: 05-12-2025 Hemoglobin A1c measurement Diabetes: Hemoglobin A1C [facility] Start: 04-25-2025 End: 04-25-2025 Patient encounter procedure 04/25/2025 10:00 AM EST [facility] [place] [address] Lauro Osuna, JANELLE [address] [facility] [address] [place] [phone] [facility] Start: 03-22-2025 Screening for malignant neoplasm of breast Mammogram [facility] Start: 02-17-2025 End: 02-17-2025 Patient encounter procedure 02/17/2025 11:15 AM EDT Appointment [facility] [address] [place] [address] [facility] Start: 02-16-2025 End: 02-16-2025 Patient encounter procedure [facility] [place] [facility] Neuro[facility] Start: 02-01-2025 Patient referral [facility] Work Phone: Start: 01-24-2025 End: 01-24-2025 Patient encounter procedure 01/24/2025 1:00 PM EDT Office Visit [facility] Neurology, A Department of [facility] [address] [facility] [address] [place] [address] Lisa Rachel MD [address] [facility] [address] [place] [address] [facility] Neurology, A Department of [facility] Start: 01-20-2025 End: 01-20-2026 MR Brain and Internal auditory canal WO and W contrast IV MR brain IAC with and without contrast Imaging Routine Dizziness Paresthesias Expected: 01/20/2025, Expires: 01/20/2026 [facility] Work Phone: Comment on above: Expected: 01/20/2025, Expires: Start: 01-09-2025 COVID-19 Vaccine ( season) COVID-19 Vaccine ( season) [facility] Start: 01-09-2025 Influenza vaccination [facility] Start: 01-02-2025 Hemoglobin A1c measurement Diabetes: Hemoglobin A1C [facility] Start: 12-21-2024 End: 12-21-2024 Patient encounter procedure 12/21/2024 10:00 AM EDT Office Visit [facility] [address] [place] [phone] Allison Mendez NP [address] [place] [phone] Primary hypertension (Primary Dx); Morbid (severe) obesity due to excess calories ([facility]) [facility] Comment on above: Primary hypertension (Primary Dx); Morbid (severe) obesity due to excess calories ([facility]) Start: 11-09-2024 End: 11-09-2024 Patient encounter procedure 11/09/2024 9:20 AM EDT Office Visit [facility] [address] [place] [phone] Allison Mendez NP [address] [place] [phone] Primary hypertension (Primary Dx); Morbid (severe) obesity due to excess calories (CMS-HCC); Type 2 diabetes mellitus without complication, without long-term current use of insulin (HCC) [facility] Comment on above: Primary hypertension (Primary Dx); Morbid (severe) obesity due to excess calories (CMS-HCC); Type 2 diabetes mellitus without complication, without long-term current use of insulin (HCC) Start: 11-07-2024 Influenza vaccination Influenza Vaccine (#1) [facility] Comment on above: Postponed from 01/10/2024 (Patient Refus ed) Start: 10-22-2024 Urine screening for protein Diabetes: Urine Protein Screening [facility] Start: 09-29-2024 End: 09-29-2024 Patient encounter procedure 09/29/2024 9:00 AM EDT Office Visit [facility] [address] [place] [phone] Allison Mendez NP [address] [place] [phone] [facility] Start: 09-07-2024 Hemoglobin A1c measurement Diabetes: Hemoglobin A1C [facility] Start: 08-24-2024 End: 08-24-2024 Patient encounter procedure 08/24/2024 11:00 AM EDT Office Visit [facility] [address] [place] [phone] Kaya Cordoba NP [address] [place] [address] [facility] Start: 07-25-2024 End: 07-25-2024 Patient encounter procedure [facility] Comment on above: Arrived Start: 07-20-2024 End: 07-20-2024 Patient encounter procedure 07/20/2024 10:30 AM EDT Procedure Visit [facility] [address] [place] [address] Stephany Lew DO [address] [place] [address] [facility] Start: 07-13-2024 End: 07-13-2024 Patient encounter procedure [facility] Comment on above: Arrived Start: 07-13-2024 End: 07-13-2025 EMG 2 Extremities [facility] Comment on above: Expected: 07/13/2024 (Approximate), Expi res: 07/13/2025 Start: 07-13-2024 End: 07-13-2025 NVC 11-12 Nerves NVC 11-12 Nerves Neurology Routine Low back pain at multiple sites Numbness and tingling Expected: 07/13/2024 (Approximate), Expires: 07/13/2025 [facility] Work Phone: Comment on above: Expected: 07/13/2024 (Approximate), Expi res: 07/13/2025 Start: 07-13-2024 End: 07-13-2025 NVC 9-10 Nerves NVC 9-10 Nerves Neurology Routine Numbness and tingling Expected: 07/13/2024 (Approximate), Expires: 07/13/2025 [facility] Comment on above: Expected: 07/13/2024 (Approximate), Expi res: 07/13/2025 Start: 07-05-2024 End: 07-05-2025 25-hydroxyvitamin D3 [Mass/volume] in Serum or Plasma Vitamin D 25 hydroxy Lab Routine Vitamin D deficiency Expected: 07/05/2024 (Approximate), Expires: 07/05/2025 [facility] Comment on above: Expected: 07/05/2024 (Approximate), Expi res: 07/05/2025 Start: 07-05-2024 End: 07-05-2025 C reactive protein [Mass/volume] in Serum or Plasma C-reactive protein Lab Routine Difficulty walking Expected: 07/05/2024 (Approximate), Expires: 07/05/2025 [facility] Comment on above: Expected: 07/05/2024 (Approximate), Expi res: 07/05/2025 Start: 07-05-2024 End: 07-05-2025 CBC W Auto Differential panel - Blood CBC and differential Lab Routine Primary hypertension (CMS/HCC) Expected: 07/05/2024 (Approximate), Expires: 07/05/2025 [facility] Comment on above: Expected: 07/05/2024 (Approximate), Expi res: 07/05/2025 Start: 07-05-2024 End: 07-05-2025 Cobalamin (Vitamin B12) [Mass/volume] in Serum or Plasma Vitamin B12 Lab Routine Fatigue, unspecified type Expected: 07/05/2024 (Approximate), Expires: 07/05/2025 [facility] Comment on above: Expected: 07/05/2024 (Approximate), Expi res: 07/05/2025 Start: 07-05-2024 End: 07-05-2025 Comprehensive metabolic 2000 panel - Serum or Plasma Comprehensive metabolic panel Lab Routine Primary hypertension (CMS/HCC) Type 2 diabetes mellitus without complication, without long-term current use of insulin (CMS/HCC) Vitamin D deficiency Mixed hyperlipidemia (CMS/HCC) Expected: 07/05/2024 (Approximate), Expires: 07/05/2025 [facility] Comment on above: Expected: 07/05/2024 (Approximate), Expi res: 07/05/2025 Start: 07-05-2024 End: 07-05-2025 Erythrocyte sedimentation rate Sedimentation rate, automated Lab Routine Difficulty walking Expected: 07/05/2024 (Approximate), Expires: 07/05/2025 [facility] Comment on above: Expected: 07/05/2024 (Approximate), Expi res: 07/05/2025 Start: 07-05-2024 End: 07-05-2025 Ferritin [Mass/volume] in Serum or Plasma Ferritin Lab Routine Fatigue, unspecified type Expected: 07/05/2024 (Approximate), Expires: 07/05/2025 [facility] Comment on above: Expected: 07/05/2024 (Approximate), Expi res: 07/05/2025 Start: 07-05-2024 End: 07-05-2025 Iron + transferrin + TIBC [facility] Comment on above: Expected: 07/05/2024 (Approximate), Expi res: 07/05/2025 Start: 07-05-2024 End: 07-05-2025 Lipid 1996 panel - Serum or Plasma Lipid panel Lab Routine Mixed hyperlipidemia ([facility]/HCC) Expected: 07/05/2024 (Approximate), Expires: 07/05/2025 [facility] Comment on above: Expected: 07/05/2024 (Approximate), Expi res: 07/05/2025 Start: 07-05-2024 End: 07-05-2025 Microalbumin/Creatinine panel in random Urine Microalbumin / creatinine, urine ratio Lab Routine Primary hypertension ([facility]) Type 2 diabetes mellitus without complication, without long-term current use of insulin ([facility]) Expected: 07/05/2024 (Approximate), Expires: 07/05/2025 [facility] Comment on above: Expected: 07/05/2024 (Approximate), Expi res: 07/05/2025 Start: 07-05-2024 End: 07-05-2025 Thyrotropin [Units/volume] in Serum or Plasma TSH Lab Routine Hypothyroidism (acquired) ([facility]) Expected: 07/05/2024 (Approximate), Expires: 07/05/2025 [facility] Work Phone: Comment on above: Expected: 07/05/2024 (Approximate), Expi res: 07/05/2025 Start: 07-05-2024 End: 07-05-2025 Thyroxine (T4) free [Mass/volume] in Serum or Plasma T4, free Lab Routine Hypothyroidism (acquired) ([facility]/HCC) Expected: 07/05/2024 (Approximate), Expires: 07/05/2025 [facility] Comment on above: Expected: 07/05/2024 (Approximate), Expi res: 07/05/2025 Start: 07-05-2024 End: 07-05-2025 Urinalysis complete panel - Urine Urinalysis with reflex microscopic (clean catch) Lab Routine Primary hypertension (CMS/HCC) Type 2 diabetes mellitus without complication, without long-term current use of insulin (CMS/HCC) Expected: 07/05/2024 (Approximate), Expires: 07/05/2025 [facility] Comment on above: Expected: 07/05/2024 (Approximate), Expi res: 07/05/2025 Start: 07-05-2024 End: 07-05-2024 Patient encounter procedure [facility] Comment on above: Primary hypertension (CMS/HCC) (Primary Dx); BMI 45.0-49.9, adult (CMS/HCC); Morbid (severe) obesity due to excess calories (CMS/HCC); Type 2 diabetes mellitus without complication, without long-term current use of insulin (CMS/HCC); Vitamin D deficiency; Difficulty walking; Mixed hyperlipidemia (CMS/HCC); Hypothyroidism (acquired) (CMS/HCC); Fatigue, unspecified type Start: 05-24-2024 End: 05-24-2024 Patient encounter procedure [facility] Comment on above: Primary hypertension (CMS/HCC) (Primary Dx); Morbid (severe) obesity due to excess calories (CMS/HCC); Body mass index (BMI) 45.0-49.9, adult (CMS/HCC); Malignant neoplasm of endometrium (CMS/HCC); Tachycardia; Fibromyalgia; Hypothyroidism (acquired) (CMS/HCC); Type 2 diabetes mellitus without complication, without long-term current use of insulin (CMS/HCC) Start: 04-14-2024 Adult BMI Screening Adult BMI Screening [facility] Start: 04-14-2024 Depression Screening Depression Screening [facility] Start: 04-14-2024 Tobacco Screening Tobacco Screening [facility] Start: 04-11-2024 FUV, Provider: Chandler Wilkes, Status: Pen, Time: 11:00 AM FUV, Provider: Chandler Wilkes, Status: Fausto, Time: 11:00 AM [facility] 250 DO Work Phone: Start: 04-11-2024 End: 04-11-2024 Patient encounter procedure 04/11/2024 9:15 AM EST Office Visit [facility] [address] [facility] [address] [place] [address] Leida Gifford, FACILITY MANAGER [address] [place] [address] [facility] Start: 04-05-2024 End: 04-05-2024 Patient encounter procedure 04/05/2024 1:40 PM EST Office Visit [facility] [address] [place] [address] Allison Mendez NP [address] [place] [address] [facility] Start: 03-21-2024 End: 03-21-2024 Patient encounter procedure 03/21/2024 9:30 AM EST Office Visit [facility] [address] [place] [address] Leida Gifford, FACILITY MANAGER [address] [place] [address] [facility] Start: 03-16-2024 End: 03-16-2024 Patient encounter procedure 03/16/2024 9:15 AM EST Office Visit [facility] [address] [place] [address] Leida Gifford, FACILITY MANAGER [address] [place] [address] [facility] Start: 03-15-2024 End: 03-15-2024 ambulatory [facility] Comment on above: Arrived Start: 03-10-2024 End: 03-10-2024 ambulatory 03/10/2024 12:30 PM EDT Treatment [facility] [address] [place] [address] Lencho Mckee PTA [facility] Start: 03-09-2024 End: 03-09-2025 Comprehensive metabolic 2000 panel - Serum or Plasma Comprehensive metabolic panel Lab Routine Primary hypertension (CMS/HCC) Type 2 diabetes mellitus without complication, without long-term current use of insulin ([facility]) Expected: 03/09/2024 (Approximate), Expires: 03/09/2025 [facility] Work Phone: Comment on above: Expected: 03/09/2024 (Approximate), Expi res: 03/09/2025 Start: 03-09-2024 End: 03-09-2025 Hemoglobin A1c/Hemoglobin.total in Blood Hemoglobin A1c Lab Routine Type 2 diabetes mellitus without complication, without long-term current use of insulin ([facility]/HCC) Expected: 03/09/2024 (Approximate), Expires: 03/09/2025 [facility] Comment on above: Expected: 03/09/2024 (Approximate), Expi res: 03/09/2025 Start: 03-09-2024 End: 05-09-2025 MG Breast - bilateral Screening Bilateral screening mammogram Imaging Routine Encounter for screening mammogram for malignant neoplasm of breast Expected: 03/09/2024 (Approximate), Expires: 05/09/2025 [facility] Comment on above: Expected: 03/09/2024 (Approximate), Expi res: 05/09/2025 Start: 03-09-2024 End: 03-09-2025 XR Knee - left 3 Views XR knee 3 views left Imaging Routine Arthritis of both knees Expected: 03/09/2024 (Approximate), Expires: 03/09/2025 [facility] Comment on above: Expected: 03/09/2024 (Approximate), Expi res: 03/09/2025 Start: 03-09-2024 End: 03-09-2025 XR Knee - right 3 Views XR knee 3 views right Imaging Routine Arthritis of both knees Expected: 03/09/2024 (Approximate), Expires: 03/09/2025 [facility] Comment on above: Expected: 03/09/2024 (Approximate), Expi res: 03/09/2025 Start: 03-09-2024 End: 03-09-2024 Patient encounter procedure 03/09/2024 9:20 AM EDT Office Visit [facility] [address] [place] [address] Allison Mendez BEAU [address] [place] [address] [facility] Start: 03-08-2024 End: 03-08-2024 ambulatory [facility] Comment on above: Arrived Start: 02-25-2024 End: 02-25-2024 ambulatory [facility] Comment on above: Arrived Start: 02-23-2024 End: 02-23-2024 ambulatory [facility] Comment on above: Arrived Start: 02-18-2024 End: 02-18-2024 ambulatory [facility] Comment on above: Arrived Start: 02-16-2024 End: 02-16-2024 ambulatory [facility] Comment on above: Arrived Start: 02-14-2024 Screening for malignant neoplasm of cervix [facility] Start: 02-11-2024 End: 02-11-2024 ambulatory [facility] Comment on above: Arrived Start: 02-09-2024 End: 02-09-2024 ambulatory 02/09/2024 12:30 PM EDT Treatment [facility] [address] [place] [address] Lencho Mckee PTA [facility] Start: 02-04-2024 End: 02-04-2024 ambulatory [facility] Comment on above: Arrived Start: 02-03-2024 Influenza vaccination Influenza Vaccine (#1) [facility] Comment on above: Postponed from 01/10/2024 (Patient Refus ed) Start: 02-01-2024 End: 02-01-2024 ambulatory [facility] Comment on above: Arrived Start: 01-29-2024 End: 01-29-2024 ambulatory [facility] Comment on above: Arrived Start: 01-25-2024 End: 01-25-2024 ambulatory 01/25/2024 2:00 PM EDT Evaluation [facility] [address] [place] [address] Martina Lyn, PT Arrived [facility] Comment on above: Arrived Start: 01-23-2024 Hemoglobin A1c measurement Diabetes: Hemoglobin A1C [facility] Start: 01-10-2024 COVID-19 Vaccine ( season) COVID-19 Vaccine () [facility] Start: 01-10-2024 Influenza vaccination [facility] Start: 2023 Screening for malignant neoplasm of breast Mammogram [facility] Start: 05-11-2023 Behavioral Health Screening Behavioral Health Screening [facility] Start: 02-17-2023 End: 04-19-2023 Cobalamin (Vitamin B12) [Mass/volume] in Serum or Plasma [facility] Work Phone: Comment on above: Expected: 02/17/2023, Expires: 3 Start: 02-17-2023 End: 04-19-2023 IMMUNOGLOBULINS YARI IMMUNOGLOBULINS YARI Lab Routine Sedimentation rate elevation Expected: 02/17/2023, Expires: 04/19/2023 [facility] Work Phone: Comment on above: Expected: 02/17/2023, Expires: 3 Start: 02-17-2023 End: 04-19-2023 PROTEIN ELECTROPHORESIS SERUM W/INTERP PROTEIN ELECTROPHORESIS SERUM W/INTERP Lab Routine Sedimentation rate elevation Expected: 02/17/2023, Expires: 04/19/2023 [facility] Work Phone: Comment on above: Expected: 02/17/2023, Expires: 3 Start: 01-09-2023 Covid-19 Vaccine () Covid-19 Vaccine () [facility] Start: 01-09-2023 Influenza vaccination [facility] Start: 01-08-2023 Glaucoma screening Diabetes: Retinopathy Screening [facility] Start: 05-11-2022 Depression Assessment Depression Assessment [facility] Start: 12-25-2013 HPV Testing HPV Testing [facility] Start: 12-25-2013 Screening for malignant neoplasm of cervix [facility] Start: 12-25-2005 DTaP/Tdap/Td Vaccines (1 - Tdap) DTaP/Tdap/Td Vaccines (1 - Tdap) [facility] Start: 12-25-2004 Pap Testing Pap Testing [facility] Start: 12-25-2004 Screening for malignant neoplasm of cervix [facility] Start: 12-25-2002 DTaP,Tdap and Td Vaccines (1 - Tdap) DTaP,Tdap and Td Vaccines (1 - Tdap) [facility] Start: 12-25-2002 Hepatitis B Vaccine (1 of 3 - 19+ 3-dose series) Hepatitis B Vaccine (1 of 3 - 19+ 3-dose series) [facility] Start: 12-25-2002 Hepatitis B Vaccines (1 of 3 - 19+ 3-dose series) Hepatitis B Vaccines (1 of 3 - 19+ 3-dose series) [facility] Start: 12-25-2002 Urine microalbumin profile DTaP,Tdap,Td Vaccine (1 - Tdap) [facility] Start: 12-25-2001 Adult BMI Follow Up Plan Adult BMI Follow Up Plan [facility] Start: 12-25-2001 Diabetes mellitus screening Diabetes Screening [facility] Start: 12-25-2001 Hepatitis C Screening Hepatitis C Screening [facility] Start: 12-25-2001 Hepatitis C screening Hepatitis C Screening [facility] Start: 12-25-2001 HIV Screening HIV Screening [facility] Start: 12-25-2001 HIV screening HIV Screening [facility] Start: 12-25-1996 Varicella vaccination Varicella Vaccines (1 of 2 - 13+ 2-dose series) [facility] Start: 12-25-1984 MMR Vaccines (1 of 1 - Standard series) MMR Vaccines (1 of 1 - Standard series) [facility] Start: 1983 Hepatitis B Vaccine (1 of 3 - 3-dose series) Hepatitis B Vaccine (1 of 3 - 3-dose series) [facility] Start: 1983 HIV screening HIV Screening [facility] Start: 1983 Lipid panel Lipid Panel [facility] Start: 1983 Thyroid stimulating hormone measurement TSH Level [facility] Start: 1983 Yearly Adult Physical Yearly Adult Physical [facility] End: 07-14-2024 Inhibitor screen Inhibitor screen Lab Routine Elevated partial thromboplastin time (PTT) 1 Occurrences starting 07/15/2023 until 07/14/2024 [employer] Work Phone: Comment on above: 1 Occurrences starting 07/15/2023 until 07/14/2024 Patient referral [facility] Work Phone: End: 01-20-2026 Rotary Chair Evaluation (Neurology) Rotary Chair Evaluation (Neurology) Neurology Routine Dizziness Paresthesias 1 Occurrences starting 01/20/2025 until 01/20/2026 [facility] Comment on above: 1 Occurrences starting 01/20/2025 until 01/20/2026 SWAB COLLECTION SPECIMEN SWAB CO LLECTION SPECIMEN Lab Routine Family history of autism Ordered: 08/31/2023 [facility] Work Phone: Comment on above: Ordered: 08/31/2023 End: 01-20-2026 Videonystagmography (Neurology) Videonystagmography (Neurology) Neurology Routine Dizziness Paresthesias 1 Occurrences starting 01/20/2025 until 01/20/2026 [facility] Comment on above: 1 Occurrences starting 01/20/2025 until 01/20/2026 Immunizations Immunization Date Immunization Notes Care Provider [facility] 04-25-2022 influenza virus vacc ine, unspecified formulation Taqueria Solis MD Work Phone: [facility] 09-10-2020 Pfizer-BioNTech COVI D-19 Vacc 30 MCG/0.3ML Intramuscular Suspension Allison Mendez Work Phone: [facility] 250 DO Work Phone: 08-20-2020 Pfizer-BioNTech COVI D-19 Vacc 30 MCG/0.3ML Intramuscular Suspension Allison Mendez Work Phone: [facility] 250 DO Work Phone: Payers Date Payer Category Payer Unknown 2019 Medicaid [id number] 2019 Medicaid (Managed Care) 1.2. [id number] 2019 Medicaid [place] [employer] [id number] 1983 Unknown [id number] 2.16.840.1.654984.3.579.2. 356 1983 Unknown [id number] 2.16.840.1.154284.3.579.2. 593 1983 Unknown [id number] 2.16.840.1.094519.3.579.2. 593 1983 Unknown [id number] 2.16.840.1.149999.3.579.2. 593 1983 Unknown [id number] 2.16.840.1.093892.3.579.2. 593 1983 Unknown [id number] 2.16.840.1.447733.3.579.2. 593 1983 Unknown [id number] 2.16.840.1.701566.3.579.2. 593 1983 Unknown [id number] 2.16.840.1.254866.3.579.2. 593 1983 Unknown [id number] 2.16.840.1.872157.3.579.2. 593 1983 Unknown [id number] 2.16.840.1.928328.3.579.2. 593 1983 Unknown [id number] 2.16.840.1.276535.3.579.2. 593 1983 Unknown [id number] 2.16.840.1.010018.3.579.2. 593 1983 Unknown [id number] 2.16.840.1.844856.3.579.2. 593 1983 Unknown [id number] 2.16.840.1.879878.3.579.2. 593 1983 Unknown [id number] 2.16.840.1.974712.3.579.2. 196 1983 Unknown [id number] 2.16.840.1.765115.3.579.2. 196 1983 Unknown [id number] 2.16.840.1.270903.3.579.2. 196 1983 Unknown [id number] 2.16.840.1.611078.3.579.2. 196 1983 Unknown [id number] 2.840.1.749591.3.579.2. 196 1983 Unknown [id number] 2.16.840.1.376579.3.579.2. 1244 1983 Unknown [id number] 2.16.840.1.414723.3.579.2. 1259 1983 Unknown [id number] 2.16.840.1.124770.3.579.2. 1259 1983 Unknown [id number] 2.840.1.296929.3.579.2. 1259 1983 Unknown [id number] 2.16.840.1.145211.3.579.2. 1259 1983 Unknown [id number] 2.16.840.1.737368.3.579.2. 1259 1983 Unknown [id number] 2.16.840.1.211291.3.579.2. 1259 1983 Unknown [id number] 2.16.840.1.280046.3.579.2. 1259 1983 Unknown [id number] 2.16.840.1.783352.3.579.2. 1258 1983 Unknown [id number] 2.840.1.380609.3.579.2. 1258 1983 Unknown [id number] 2.16840.1.845757.3.579.2. 1258 1983 Unknown [id number] 2.840.1.658449.3.579.2. 1258 1983 Unknown [id number] 2.840.1.472073.3.579.2. 1258 1983 Unknown [id number] 2.840.1.054098.3.579.2. 1258 1983 Unknown [id number] 2.840.1.061787.3.579.2. 1258 1983 Unknown [id number] 2.840.1.890836.3.579.2. 1258 1983 Unknown [id number] 2.840.1.475523.3.579.2. 1258 1983 Unknown [id number] 2.840.1.060666.3.579.2. 1258 1983 Unknown [id number] 2.840.1.619106.3.579.2. 1258 1983 Unknown [id number] 2.840.1.885759.3.579.2. 1258 1983 Unknown [id number] 2.840.1.219581.3.579.2. 1258 1983 Unknown [id number] 2.840.1.939776.3.579.2. 1258 1983 Unknown [id number] 2.840.1.398990.3.579.2. 1258 1983 Unknown [id number] 2.840.1.910179.3.579.2. 1258 1983 Unknown [id number] 2.16.840.1.259931.3.579.2. 1259 1983 Unknown [id number] 2.16.840.1.876071.3.579.2. 1286 1983 Unknown [id number] 2.16.840.1.318651.3.579.2. 1286 1983 Unknown [id number] 2.16.840.1.656373.3.579.2. 1286 1983 Unknown [id number] 2.16.840.1.442458.3.579.2. 1286 1959 Unknown [id number] Social History Date Type Detail Facility Start: 02-17-2023 End: 01-20-2025 No alcohol use No alcohol use [facility] Comment on above: 1-2 cups coffee brian y; Start: 07-29-2021 End: 02-17-2023 Tobacco smoking status GAIS Never smoked tobacco [facility] Start: 07-29-2021 End: 02-17-2023 Tobacco use and exposure Smokeless tobacco non-user [facility] Start: 02-17-2023 End: 01-20-2025 Tobacco use panel [facility] Adult Depression Screening Assessment 0 [facility] Start: 1985 Sex Assigned At Not on file [facility] Start: 12-09-2023 End: 01-20-2025 Alcoholic beverage intake Ex-drinker (finding) [facility] Do you belong to any clubs or organizations such as roman catholic groups, unions, fraternal or athletic groups, or school groups? No [facility] Are you now , , , , never or living with a partner? [facility] How often to you hav e a drink containing alcohol? Monthly or less [facility] How many standard dr inks containing alcohol do you have on a typical day? 1 or 2 [facility] How often do you hav e 6 or more drinks on 1 occasion? Never [facility] How hard is it for y ou to pay for the very basics like food, housing, medical care, and heating Somewhat hard [facility] Do you feel stress - tense, restless, nervous, or anxious, or unable to sleep at night because your mind is troubled all the time - these days [OSQ] Only a little [facility] (I/We) worried wheth er (my/our) food would run out before (I/we) got money to buy more. Sometimes true [facility] In the past 12 month s, was there a time when you were not able to pay the mortgage or rent on time? Yes [facility] Start: 04-11-2024 Alcoholic beverage intake Lifetime non-drinker (finding) [facility] Work Phone: Start: 04-01-2024 End: 04-11-2024 Exposure to SARS-CoV-2 (event) Not sure [facility] Start: 07-16-2021 End: 10-18-2024 Sex Female (finding) [facility] Start: 1985 Sex Assigned At Female F [facility] NEGATED: Highlighted row N [facility] Medical Equipment Procedure Code Equipment Code Equipment Origin al Text Equipment Identifier Dates USE DIRECTED DAILY [id number] Sta rt: 08-05-2023 End: 04-19-2024 Use as instructe dUSE DIRECTED DAILY [id number] Start: 04-19-2024 End: 07-13-2024 Clinical Notes 02-17-2023 to 02-10-2025 Telephone Encounter - Jose Enrique Toussaint - 02/10/2025 11:25 AM EDTTelephone Encounter - Lauro Osuna PA-C - 02/10/2025 11:25 AM Nalini Osuna PA-C - 01/20/2025 9:30 AM EDT Note Date & Type Note Facility 02-10-2025 Miscellaneous Notes Janet Jiang, stated patient is scheduled for MR BRAIN IAC WWO CONTRAST 02/17/25. Insurance is asking for additional information or a [id number]. ADAN: [phone] [facility] Paresthesias, Dizziness, White Matter Changes on previous Brain MRI; suspect Demyelinating Disease. - [facility] RN contacted [facility] and spoke to [place]. Testing was approved. Nothing further needed. documented in this encounter [facility] 02-10-2025 Telephone encounter Note Janet Jiang, stated patient is scheduled for MR BRAIN IAC WWO CONTRAST 02/17/25. Insurance is asking for additional information or a [id number]. [facility] [facility]: [phone] [facility] 02-10-2025 Telephone encounter Note Paresthesias, Dizziness, White Matter Changes on previous Brain MRI; suspect Demyelinating Disease. - [facility] Work Phone: 02-10-2025 Telephone encounter Note RN contacted [facility] and spoke to Enrike. Testing was approved. Nothing further needed. [facility] 01-20-2025 History of Presen t illness Narrative [facility] Neurology Office Note 01/16/2025 10:53 AM Patient info: Denisha Maldonado is a 39 y.o. female Account No.: [id number] Acct: : 1985 PCP: DB NOLAND Chief Complaint: Patient, 39 year old female, presents today for initial Neurological evaluation regarding dizziness. Referred by Allison ACE Denisha is present in the office today by herself. HPI: Denisha complains of dizziness. Dizziness is further described as episodes of feeling like she is on a boat and/or veering towards the left with ambulation; while sitting gets episodes of shakes periodically. Has difficulty transitioning from light to dark rooms due to this. Onset was approximately 23 years ago. Sxs occur randomly, though stress seems to exacerbate sxs. Associated left face and LUE numbness sometimes. Had an episode a couple years ago in which she had numbness and weakness along her entire left side with associated expressive aphasia. Expressive aphasia was transient, but the left sided numbness and weakness lasted a couple days. Since then has had very limited smell. Complains of dropping various items often. Has difficulty grabbing objects in the morning along with tingling in the hands and arms. EMG/NCV of the upper extremities was previously completed on 07/20/24 and was normal. Gets migraines a lot . - Frequency: 3 per week - Timing: typically present upon waking - Duration: 1-2 hours - Location: bi-frontal - Quality: pressure - Intensity: mild-moderate - Aura: (-) - Associated sxs: increase in dizziness - Complicated sxs: none Contributing Factors: (+/-) hx of a single remote concussion: (-) hx of STEM CLEANING MACHINE FEEDER infection: (-) hx of seizure: (-) hx of stroke or cerebrovascular malformation: (-) hx of intracranial tumor/mass/cyst: (+) hx anxiety/depression/mood disorder: hx anxiety Known to have IRENE, does not use a CPAP. Wears glass for driving; last eye exam was approximately 1 year ago. Brain MRI previously completed at [facility] approximately 2-3 years ago. Reportedly had a degree of non-specific white matter changes. This is unavailable for personal review at this time. Previously evaluation by a [employer] in [place], [place] who diagnosed her with Fibromyalgia. No known neurological conditions in the family. Previous Studies: 07/25/24: EMG/NCV study BLE - Normal 07/20/24: EMG/NCV study BUE - Normal Past Medical Hx: See EMR Social Hx: Tobacco: none ETOH: none Illicit Substances: none Family Hx: Mother: osetoarthritis Father: --- Siblings: --- Surgical Hx: See EMR Allergies: See EMR Review of Systems: Constitutional: Negative for fever, chills, sweats, or unintentional weight loss Eyes: Negative HENT: Negative Cardiovascular: Negative for chest pain and palpitations Respiratory: Negative for cough and shortness of breath Gastrointestinal: Negative for nausea, vomiting, abdominal pain and diarrhea Genitourinary: Negative for dysuria, urgency, frequency, or hematuria Musculoskeletal: Negative for myalgias or joint swelling Skin: Negative Neurological: - as noted in the HPI Psychiatric/Behavioral: Negative Endocrine: Negative Hem/Onc: Negative Allergy/Immunology: Negative Vitals: BP: 134/89 HR: 86 Weight: 137.1 kg Physical Exam: General: well groomed, appears stated age Neurological Exam: The patient is awake, alert, and attentive Speech and language are normal Normal affect, with normal orientation and cognition EOMI, Left eye is slightly up and out with static gaze, PERRL, No gross visual field deficits Face is symmetric, Tongue protrudes midline Palate rises symmetrically with uvula midline Shoulder shrug is strong bilaterally Nose to finger testing is without dysmetria Upper Extremity Drift is (-) Fine motor skills are approximately equal in each hand Tremor: (-) Sensation is intact and symmetric in the extremities bilaterally DTR's are 1+ throughout Segura's sign (-) bilaterally Strength throughout the Upper Extremities is 5/5 Strength throughout the Lower Extremities is 5/5 Muscle Tone throughout the extremities is normal Romberg is (-) Gait is steady with normal base, normal stride and bilateral arm swing ASSESSMENT: Denisha is a 39 year old right hand dominant female with a hx of anxiety, hypothyroidism, HTN, obesity, prediabetes, fibromyalgia, and white matter changes on previous Brain MRI who has dizziness, morning headaches, and paresthesias. PLAN: Will order a Brain MRI, IAC Protocol, with and without contrast; added Sagittal FLAIR image Will order a VNG and Rotary Chair Testing Continue Meclizine 25 mg q8hrs prn for dizziness Follow up in the office in 2-3 months Electronically Signed by: Lauro Osuna PA-C 01/20/25 1741 documented in this encounter [facility] 12-21-2024 History of Presen t illness Narrative Associated Problem(s): Panic attack Does report increase in anxiety when going out in public as well as appts Cont with buspar will increase fluoxetine to 20mg daily Back spasms have came back since last week-pt did go to pain mgmt in the past and may need to do so again 129/84 left wrist cuff Images from the original note were not included. Denisha Maldonado is a 38 y.o. female presents with chief complaint of Hypertension HPI: Here for recheck of blood pressure, last appt we ordered carvediolol 3.125mg twice a day, pt did not start this because did not get a notification from the pharmacy that it was ready. It does look like it was received, but not dispensed. No chest pain, pressure heaviness chest. Does have swelling in legs Brought home readings as instructed, we did compare the two in office and cuff in office is reading about 20 points higher systolic 152/100 left arm large cuff, 135/94 wrist cuff Back spams have started up again, she had injections with pain mgmt, they are prescribing the baclofen SUBJECTIVE: MEDICATIONS: Current Outpatient Medications Medication Instructions albuterol HFA 90 mcg/act inhaler 2 puffs, Inhalation, Every 6 hours PRN aspirin 81 mg, Daily atorvastatin (LIPITOR) 10 mg, Oral, Nightly baclofen (LIORESAL) 10 mg, 3 times daily PRN busPIRone (BUSPAR) 10 mg, Oral, Every 8 hours PRN carvedilol (COREG) 3.125 mg, Oral, 2 times daily with meals cholecalciferol (VITAMIN D-3) 2,000 Units, Daily cyanocobalamin (VITAMIN B-12) 1,000 mcg, Daily diclofenac sodium 4 g, 4 times daily FLUoxetine (PROZAC) 20 mg, Oral, Daily ibuprofen (IBU) 800 mg, Every 8 hours PRN levothyroxine (SYNTHROID, LEVOXYL) 150 mcg, Oral, Daily before breakfast losartan (COZAAR) 100 mg, Oral, Daily metFORMIN (GLUCOPHAGE) 1,000 mg, Oral, Daily with breakfast triamcinolone (Nasacort) 55 MCG/ACT nasal inhaler 2 sprays, Daily verapamil ER (VERELAN) 180 mg, Oral, Daily ALLERGIES: Allergies Allergen Reactions Celebrex [Celecoxib] Other Pt had swelling in her knees, dizziness, spiked BP and heart rate, chest pain/pressure, and SOB Gabapentin Anxiety Pt states that she felt dizzy and weird not herself. Duloxetine Other Gabapentin Unknown Hydrochlorothiazide Other Reaction(s): Unknown REVIEW OF SYMPTOMS: Review of Systems Constitutional: Negative for appetite change, chills and fever. HENT: Negative for congestion, ear pain and sore throat. Eyes: Negative for pain, discharge, redness and visual disturbance. Respiratory: Negative for cough, shortness of breath and wheezing. Cardiovascular: Positive for leg swelling. Negative for chest pain and palpitations. Gastrointestinal: Negative for abdominal pain, blood in stool, constipation, diarrhea, nausea and vomiting. Genitourinary: Negative for difficulty urinating, dysuria and frequency. Musculoskeletal: Positive for arthralgias. Negative for back pain, joint swelling and myalgias. Skin: Negative for rash and wound. Neurological: Negative for dizziness, tremors, seizures, syncope and headaches. Psychiatric/Behavioral: Negative for behavioral problems, self-injury and suicidal ideas. The patient is not nervous/anxious. Hematological: Does not bruise/bleed easily. Endocrine: Negative for polydipsia, polyphagia and polyuria. Allergic/Immunologic: Negative for environmental allergies and food allergies. 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 OBJECTIVE: Visit Vitals BP (!) 140/100 (BP Location: Right arm, Patient Position: Sitting, BP Cuff Size: Large adult) Pulse 86 Temp 97.8 F (Temporal) Resp 20 Wt 300 lb 12.8 oz SpO2 97% BMI 53.28 kg/m Smoking Status Never BSA 2.46 m Physical Exam Vitals and nursing note reviewed. Constitutional: General: She is not in acute distress. Appearance: Normal appearance. HENT: Head: Normocephalic and atraumatic. Right Ear: External ear normal. Left Ear: External ear normal. Nose: Nose normal. Mouth/Throat: Mouth: Mucous membranes are moist. Eyes: Extraocular Movements: Extraocular movements intact. Conjunctiva/sclera: Conjunctivae normal. Cardiovascular: Rate and Rhythm: Normal rate and regular rhythm. Pulses: Normal pulses. Heart sounds: Normal heart sounds. Pulmonary: Effort: Pulmonary effort is normal. Breath sounds: Normal breath sounds. Musculoskeletal: General: Normal range of motion. Cervical back: Normal range of motion and neck supple. Skin: General: Skin is warm and dry. Capillary Refill: Capillary refill takes 2 to 3 seconds. Findings: No rash. Neurological: General: No focal deficit present. Mental Status: She is alert and oriented to person, place, and time. Psychiatric: Mood and Affect: Mood normal. Behavior: Behavior normal. Thought Content: Thought content normal. Judgment: Judgment normal. ASSESSMENT AND PLAN: Follow up in about 6 weeks (around 02/01/2025) for Recheck. Problem List Items Addressed This Visit Panic attack Does report increase in anxiety when going out in public as well as appts Cont with buspar will increase fluoxetine to 20mg daily Relevant Medications FLUoxetine (PROzac) 20 MG capsule Primary hypertension - Primary Please check blood pressure daily and record DASH diet Limit caffeine Take medication as directed Contact office if chest pain, pressure, dizziness, shortness of breath, swelling legs Recommend slow position changes Current meds: verapamil, losartan, Never started the carvedilol, will resend in Relevant Medications carvedilol (Coreg) 3.125 MG tablet Morbid (severe) obesity due to excess calories (CMS-HCC) Discussed with patient their BMI (actual, verses [...] any GLP 1 for her to utilize Associated Problem(s): Morbid (severe) obesity due to excess calories ([facility]) Discussed with patient their BMI (actual, verses [...] any GLP 1 for her to utilize Associated Problem(s): Primary hypertension Please check blood pressure daily and record DASH diet Limit caffeine Take medication as directed Contact office if chest pain, pressure, dizziness, shortness of breath, swelling legs Recommend slow position changes Current meds: verapamil, losartan, Never started the carvedilol, will resend in documented in this encounter [facility] 12-21-2024 Instructions Allison Mendez NP - 12/21/2024 10:00 AM EDT Increase dose on fluoxetine to 20mg daily Start carvediolol Check blood pressure daily documented in this encounter [facility] 12-01-2024 Evaluation note Diagnosis Onset Date Resolution Abnormal weight gain acute December 01, 2024 10:56am Anxiety acute December 01 10:56am Arthritis of both knees acute December 01, 2024 10:56am Asthma acute December 01 10:56am BMI 50.0-59.9, adult acute December 01, 2024 10:56am Class 3 severe obesity with body mass index (BMI) of 50.0 to 59.9 in adult acute December 01, 2024 10:56am Dietary surveillance and counseling acute December 01, 2024 10:56am Exercise counseling acute December 01, 2024 10:56am Fibromyalgia acute December 01, 10:56am High cholesterol acute November 10:56am History of hysterectomy June 27, 2021 acute December 01, 2024 10:56am Hypertension acute December 01, 025 10:56am Hypothyroidism acute December 01, 2024 10:56am Lumbar spondylosis acute November 092024 10:56am IRENE (obstructive sleep apnea) acute December 01, 2024 10:56am PCOS (polycystic ovarian syndrome) acute December 01 10:56am Prediabetes acute December 01 10:56am Abnormal weight gain acute Jan 10:00am Anxiety acute January 10:00am Arthritis of both knees acute January 26, 2025 10:00am Asthma acute January 10:00am BMI 50.0-59.9, adult acute Jan 10:00am Class 3 severe obesity with body mass index (BMI) of 50.0 to 59.9 in adult acute January 26, 2025 10:00am Dietary surveillance and counseling acute January 26, 2025 10:00am Exercise counseling acute 2024 10:00am Fibromyalgia acute January 262024 10:00am [facility] History of hysterectomy June 27, 2021 acute January 26, 2025 10:00am Hypertension acute January 262024 10:00am Hypothyroidism acute January 26, 2025 10:00am Lumbar spondylosis acute Jan 2024 10:00am IRENE (obstructive sleep apnea) acute January 26, 2025 10:00am PCOS (polycystic ovarian syndrome) acute January 10:00am Prediabetes acute January 10:00am [facility] Work Phone: 1(346) 429-903907-24-2025 Evaluation note* Diagnosis Onset Date Resolution Status Admit Date Abnormal weight gain acute December 01, 2024 10:56am Anxiety acute December 01 10:56am Arthritis of both knees acute J nimisha 2024 10:56am Asthma acute December 01 10:56am BMI 50.0-59.9, adult acute December 01, 2024 10:56am Class 3 severe obesity with body mass index (BMI) of 50.0 to 59.9 in adult acute December 012024 10:56am Dietary surveillance and counseling acute December 01, 2024 10:56am Exercise counseling acute December 01, 2024 10:56am Fibromyalgia acute December 01, 10:56am High cholesterol acute November 10:56am History of hysterectomy June 27, 2021 acu te December 01, 2024 10:56am Hypertension acute December 01 10:56am Hypothyroidism acute December 01, 2024 10:56am Lumbar spondylosis acute November 092024 10:56am IRENE (obstructive sleep apnea) acute December 01, 2024 10:56am PCOS (polycystic ovarian syndrome) acute December 01, 2024 10:56am Prediabetes acute December 01 10:56am Abnormal weight gain acute Jan 10:00am Anxiety acute January 10:00am Arthritis of both knees acute S eptemb2024 10:00am Asthma acute January 10:00am BMI 50.0-59.9, adult acute Jan 10:00am Class 3 severe obesity with body mass index (BMI) of 50.0 to 59.9 in adult [place] [facility] [place] 10:00am Dietary surveillance and counseling acute January 26, 2025 10:00am [facility] 10:00am Fibromyalgia acute January 262024 10:00am High cholesterol acute [facility] 2024 10:00am History of hysterectomy June 27, 2021 acu te January 26, 2025 10:00am Hypertension acute January 262024 10:00am Hypothyroidism acute January 26, 2025 10:00am Lumbar spondylosis [place] [facility] [place] 10:00am IRENE (obstructive sleep apnea) acute January 26, 2025 10:00am PCOS (polycystic ovarian syndrome) acute January 26, 2025 10:00am Prediabetes acute January 10:00am Anxiety acute January 8:42am Biceps tendonitis acute Sept[facility] er 2024 8:42am Class 3 severe obesity with body mass index (BMI) of 50.0 to 59.9 in adult acute Sept[place] er 2024 8:42am Essential hypertension acute Se ptember 2024 8:42am [facility] Work Phone: 1(120) 645-813507-02-2025 History of Present illness Narrative* ORTIZ FITZPATRICK - 11/09/2024 9:20 AM EDT Pt is seeing new neuro in jan. She did see the weight loss mgmt they are wanting her to start on zepbound but still in the process of getting it approved with insurance. * Allison Mendez NP - 11/09/2024 9:20 AM EDT Images from the original note were not included. Denisha Maldonado is a 38 y.o. female presents with chief complaint of Diabetes HPI: Diabetes She presents for her follow-up diabetic visit. She has type 2 diabetes mellitus. Her disease coursehas been stable. Hypoglycemia symptoms include dizziness and nervousness/anxiousness. Pertinent negatives for hypoglycemia include no headaches, seizures or tremors. Pertinent negatives for diabetes include no blurred vision, no chest pain, no foot paresthesias, no polydipsia, no polyphagia, no polyuria and no visual change. There are no hypoglycemic complications. Symptoms are stable. There are no diabetic complications. Pertinent negatives for diabetic complications include no CVA, heart disease, peripheral neuropathy or retinopathy. Risk factors for coronary artery disease include diabetesmellitus, dyslipidemia, hypertension, obesity and sedentary lifestyle. Current diabetic treatment includes oral agent (monotherapy). She is following a generally healthy diet. An MILKA inhibitor/angiotensin II receptor feli is being taken. She does not see a lapeler.Eye exam is current. Hypertension This is a chronic problem. The current episode started more than 1 year ago. The problem is unchanged. The problem is uncontrolled. Associated symptoms include peripheral edema (occ). Pertinent negatives include no blurred vision, chest pain, headaches, malaise/fatigue, palpitations or shortness ofbreath. There are no associated agents to hypertension. Risk factors for coronary artery disease include diabetes mellitus, dyslipidemia, obesity and sedentary lifestyle. Past treatments include angiotensin blockers and calcium channel blockers. The current treatment provides moderate improvement. There are no compliance problems. There is no history of CAD/VT, CVA, left ventricular hypertrophy or retinopathy. SUBJECTIVE: MEDICATIONS: Current Outpatient Medications Medication Instructions albuterol HFA 90 mcg/act inhaler 2 puffs, Inhalation, Every 6 hours PRN aspirin 81 mg, Daily atorvastatin (LIPITOR) 10 mg, Oral, Nightly baclofen (LIORESAL) 10 mg, 3 times daily PRN busPIRone (BUSPAR) 10 mg, Oral, Every 8 hours PRN cholecalciferol (VITAMIN D-3) 2,000 Units, Daily cyanocobalamin (VITAMIN B-12) 1,000 mcg, Daily diclofenac sodium 4 g, 4 times daily FLUoxetine (PROZAC) 10 mg, Oral, Daily ibuprofen (IBU) 800 mg, Every 8 hours PRN levothyroxine (SYNTHROID, LEVOXYL) 150 mcg, Oral, Daily before breakfast losartan (COZAAR) 100 mg, Oral, Daily metFORMIN (GLUCOPHAGE) 1,000 mg, Oral, Daily with breakfast triamcinolone (Nasacort) 55 MCG/ACT nasal inhaler 2 sprays, Daily verapamil ER (VERELAN) 180 mg, Oral, Daily ALLERGIES: Allergies Allergen Reactions Celebrex [Celecoxib] Other Pt had swelling in her knees, dizziness, spiked BP and heart rate, chest pain/pressure, and SOB Gabapentin Anxiety Pt states that she felt dizzy and weird not herself. Duloxetine Other Gabapentin Unknown Hydrochlorothiazide Other Reaction(s): Unknown REVIEW OF SYMPTOMS: Review of Systems Constitutional: Negative for appetite change, chills, fever and malaise/fatigue. HENT: Negative for congestion, ear pain and sore throat. Eyes: Negative for blurred vision, pain, discharge, redness and visual disturbance. Respiratory: Negative for cough, shortness of breath and wheezing. Cardiovascular: Negative for chest pain, palpitations and leg swelling (occ). Gastrointestinal: Negative for abdominal pain, blood in stool, constipation, diarrhea, nausea and vomiting. Genitourinary: Negative for difficulty urinating, dysuria and frequency. Musculoskeletal: Positive for arthralgias, back pain and myalgias. Negative for joint swelling. Skin: Negative for rash and wound. Neurological: Positive for dizziness. Negative for tremors, seizures, syncope and headaches. Psychiatric/Behavioral: Negative for behavioral problems, self-injury and suicidal ideas. The patient is nervous/anxious. Hematological: Does not bruise/bleed easily. Endocrine: Negative for polydipsia, polyphagia and polyuria. Allergic/Immunologic: Negative for environmental allergies and food allergies. 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 OBJECTIVE: Visit Vitals BP (!) 146/92 (BP Location: Right arm, Patient Position: Sitting, BP Cuff Size: Large adult) Pulse 77 Temp 98.5 F (Temporal) Resp 20 Wt 305 lb 12.8 oz SpO2 97% BMI 54.17 kg/m Smoking Status Never BSA 2.49 m Physical Exam Vitals and nursing note reviewed. Constitutional: General: She is not in acute distress. Appearance: Normal appearance. She is obese. HENT: Head: Normocephalic and atraumatic. Right Ear: External ear normal. Left Ear: External ear normal. Nose: Nose normal. Mouth/Throat: Mouth: Mucous membranes are moist. Eyes: Extraocular Movements: Extraocular movements intact. Conjunctiva/sclera: Conjunctivae normal. Neck: Vascular: No carotid bruit. Cardiovascular: Rate and Rhythm: Normal rate and regular rhythm. Pulses: Normal pulses. Heart sounds: Normal heart sounds. Pulmonary: Effort: Pulmonary effort is normal. Breath sounds: Normal breath sounds. No wheezing or rhonchi. Abdominal: General: Bowel sounds are normal. There is no distension. Palpations: Abdomen is soft. There is no mass. Tenderness: There is no abdominal tenderness. Musculoskeletal: General: Normal range of motion. Cervical back: Normal range of motion and neck supple. Skin: General: Skin is warm and dry. Capillary Refill: Capillary refill takes 2 to 3 seconds. Findings: No rash. Neurological: General: No focal deficit present. Mental Status: She is alert and oriented to person, place, and time. Psychiatric: Mood and Affect: Mood normal. Behavior: Behavior normal. Thought Content: Thought content normal. Judgment: Judgment normal. ASSESSMENT AND PLAN: No follow-ups on file. Problem List Items Addressed This Visit Type 2 diabetes mellitus without complication, without long-term current use of insulin ([facility]) Check blood sugars daily, notify if <70 or >200. Take medications (pills or insulin) as directed. Monitor for s/s of hypoglycemia (sweaty, dizziness, nausea, vomiting, or shakiness). Watch for increase in thirst, urination, or appetite. Inspect feet frequently monitoring for open wounds , andalso recommend yearly eye exam. Pt should attempt [...] use consistently A1c: 5.7% 11/09/24, 5.8% 07/05/24 Relevant Medications metFORMIN (Glucophage) 1000 MG tablet Other Relevant Orders POCT glycosylated hemoglobin (Hb A1C) docked device (Completed) Tachycardia Relevant Medications verapamil ER (Verelan) 180 MG 24 hr capsule Panic attack Relevant Medications busPIRone (Buspar) 10 MG tablet FLUoxetine (PROzac) 10 MG capsule Hypothyroidism (acquired) Relevant Medications levothyroxine (Synthroid, Levoxyl) 150 MCG tablet Primary hypertension - Primary Please check blood pressure daily and record DASH diet Limit caffeine Take medication as directed Contact office if chest pain, pressure, dizziness, shortness of breath, swelling legs Recommend slow position changes Current meds: verapamil, losartan Relevant Medications losartan (Cozaar) 100 MG tablet carvedilol (Coreg) 3.125 MG tablet Mixed hyperlipidemia Relevant Medications atorvastatin (Lipitor) 10 MG tablet Morbid (severe) obesity due to excess calories [place] [place] Discussed with patient their BMI (actual, verses [...] any GLP 1 for her to utilize * Allison Mendez NP - 11/09/2024 6:06 AM EDTAssociated Problem(s): Type 2 diabetes mellitus without complication, without long-term current useof insulin ([facility]) Check blood sugars daily, notify if <70 or >200. Take medications (pills or insulin) as directed. Monitor for s/s of hypoglycemia (sweaty, dizziness, nausea, vomiting, or shakiness). Watch for increase in thirst, urination, or appetite. Inspect feet frequently monitoring for open wounds , andalso recommend yearly eye exam. Pt should attempt [...] use consistently A1c: 5.7% 11/09/24, 5.8% 07/05/24 * Allison Mendez NP - 11/09/2024 6:05 AM EDTAssociated Problem(s): Morbid (severe) obesity due to excess calories [place] [place] Discussed with patient their BMI (actual, verses [...] any GLP 1 for her to utilize * Allison Mendez NP - 11/09/2024 6:05 AM EDTAssociated Problem(s): Primary hypertension Please check blood pressure daily and record DASH diet Limit caffeine Take medication as directed Contact office if chest pain, pressure, dizziness, shortness of breath, swelling legs Recommend slow position changes Current meds: verapamil, losartan documented in this [facility]07-02-2025 Instructions* Patient Instructions* Allison Mendez NP - 11/09/2024 9:20 AM EDT Add carvedilol twice a day No other med dose changes Check BP once a day, record and bring log book to next appt documented in this [facility]07-01-2025 Miscellaneous Notes* Telephone Encounter - Nerissa Flores - 11/08/2024 11:14 AM EDT Received new patient referral. Please call patient to schedule a new patient appointment for Vestibular dizziness R42 (ICD-10-CM) - Vertigo IS THIS DUE TO AN ACCIDENT? IS THIS WORKER'S COMP? PLEASE VERIFY IF THIS IS WORKERS COMP AND DOCUMENT (We do not accept any new workers comp cases) WHAT INSURANCE? HAVE YOU EVER BEEN SEEN BY A NEUROLOGIST BEFORE? * Telephone Encounter - Freida Breanna - 11/08/2024 11:14 AM EDT Please ask the following questions to the new patient that you are schedulin. IS THIS DUE TO AN ACCIDENT? -No 2. IS THIS WORKER'S COMP? PLEASE VERIFY IF THIS IS WORKERS COMP AND DOCUMENT (We do not accept any new workers comp cases) -No 3. WHAT INSURANCE? -[place] [employer] 4. HAVE YOU EVER BEEN SEEN BY A NEUROLOGIST BEFORE? IF YES, WHO AND WHEN? IS THIS A SECOND OPINION? -No 5. ANY CHANCE OF NOW OR BEFORE YOUR APPOINTMENT? -No 6. OFFERED MARY FOR SOONER APPOINTMENT? -Yes 7. PATIENT IS SCHEDULED ON/WITH: -01/24/[address] Rachel 8. WHO CALLED TO SCHEDULE APPOINTMENT? -[facility] Telephone encounter Note* Telephone Encounter - Nerissa Flores - 11/08/2024 11:14 AM EDT Received new patient referral. Please call patient to schedule a new patient appointment for Vestibular dizziness R42 (ICD-10-CM) - Vertigo IS THIS DUE TO AN ACCIDENT? IS THIS WORKER'S COMP? PLEASE VERIFY IF THIS IS WORKERS COMP AND DOCUMENT (We do not accept any new workers comp cases) WHAT INSURANCE? HAVE YOU EVER BEEN SEEN BY A NEUROLOGIST BEFORE? [facility] [id number] Telephone encounter Note* Telephone Encounter - Freida Carlos - 11/08/2024 11:14 AM EDT Please ask the following questions to the new patient that you are schedulin. IS THIS DUE TO AN ACCIDENT? -No 2. IS THIS WORKER'S COMP? PLEASE VERIFY IF THIS IS WORKERS COMP AND DOCUMENT (We do not accept any new workers comp cases) -No 3. WHAT INSURANCE? -[place] [employer] 4. HAVE YOU EVER BEEN SEEN BY A NEUROLOGIST BEFORE? IF YES, WHO AND WHEN? IS THIS A SECOND OPINION? -No 5. ANY CHANCE OF NOW OR BEFORE YOUR APPOINTMENT? -No 6. OFFERED MARY FOR SOONER APPOINTMENT? -Yes 7. PATIENT IS SCHEDULED ON/WITH: -01/24/[address] Rachel 8. WHO CALLED TO SCHEDULE APPOINTMENT? -Patient [facility]06-10-2025 Evaluation note* Diagnosis Onset Date Resolution Status Admit Date Abnormal weight gain acute October 18, 2024 8:43am Anxiety acute October 18 8:43am Arthritis of both knees acute 2024 8:43am Asthma acute October 18 8:43am BMI 50.0-59.9, adult acute October 18, 2024 8:43am Class 3 severe obesity with body mass index (BMI) of 50.0 to 59.9 in adult acute October 18, 2024 8:43am Dietary surveillance and counseling acute October 18, 2024 8:43am Exercise counseling acute October 18, 2024 8:43am Fibromyalgia acute October 18 8:43am High cholesterol acute October 8:43am History of hysterectomy June 27, 2021 acu te October 18, 2024 8:43am Hypertension acute October 18 8:43am Hypothyroidism acute October 18, 2024 8:43am Lumbar spondylosis acute October 092024 8:43am IRENE (obstructive sleep apnea) acute October 18, 2024 8:43am PCOS (polycystic ovarian syndrome) acute October 18, 2024 8:43am Prediabetes acute October 18 8:43am Abnormal weight gain acute December 01, 2024 10:56am Anxiety acute December 01 10:56am Arthritis of both knees acute J 2024 10:56am Asthma acute December 01 10:56am BMI 50.0-59.9, adult acute December 01, 2024 10:56am Class 3 severe obesity with body mass index (BMI) of 50.0 to 59.9 in adult acute December 01, 2024 10:56am Dietary surveillance and counseling acute December 01, 2024 10:56am Exercise counseling acute December 01, 2024 10:56am Fibromyalgia acute December 01 10:56am High cholesterol acute November 10:56am History of hysterectomy June 27, 2021 acu te December 01, 2024 10:56am Hypertension acute Gilda 24th, 2 025 10:56am Hypothyroidism acute December 01, 2024 10:56am Lumbar spondylosis acute November 092024 10:56am IRENE (obstructive sleep apnea) acute December 01, 2024 10:56am PCOS (polycystic ovarian syndrome) acute December 01, 2024 10:56am Prediabetes acute December 01 10:56am [facility] Work Phone: 1(455) 801-776906-10-2025 Evaluation note* Diagnosis Onset Date Resolution Status Admit Date Abnormal weight gain acute October 18, 2024 8:43am Anxiety acute October 18 8:43am Arthritis of both knees acute 2024 8:43am Asthma acute October 18 8:43am BMI 50.0-59.9, adult acute October 18, 2024 8:43am Class 3 severe obesity with body mass index (BMI) of 50.0 to 59.9 in adult acute October 18, 2024 8:43am Dietary surveillance and counseling acute October 18, 2024 8:43am Exercise counseling acute October 18, 2024 8:43am Fibromyalgia acute October 18 8:43am High cholesterol acute October 8:43am History of hysterectomy June 27, 2021 acu te October 18, 2024 8:43am Hypertension acute October 18 8:43am Hypothyroidism acute October 18, 2024 8:43am Lumbar spondylosis acute October 092024 8:43am IRNEE (obstructive sleep apnea) acute October 18, 2024 8:43am PCOS (polycystic ovarian syndrome) acute October 18, 2024 8:43am Prediabetes acute October 18 8:43am [facility] Work Phone: 1(299) 113-595003-12-2025 History of Present illness Narrative* Ruben Edwards, ARRT - 07/20/2024 10:30 AM EDT Images from the original note were not included. Reason for Appointment: EMG Patient: Denisha Maldonado : 1985 EMG Computer: Home Inventory S[pecialists Referring Physician: Dr. Stephany Lew EMG: BLAKE obstetrical anesthesiologist: Ruben Edwards RT(R) Office Location: [place] Reason for EMG: c/o numbness/tingling & pain in bilateral hands. Pt states PreDM. Taking ASA. Comments: Procedure was explained to the patient & mother who expressed understanding. Patient appeared to have tolerated the test well despite some discomfort due to the nature of the test. documented in this encounterCo[facility] [id number] History of Present illness Narrative* Stephany Lew, - 07/13/2024 4:00 PM EST Images from the original note were not included. Chief Complaint Patient presents with Dizziness Extremity Weakness balance issues\ Subjective Denisha Maldonado, 38 y.o., female here in follow up for new weakness, dizziness, and balance issues. HPI We Did see the patient of the same Symptoms. We were doing workup at that time. Unfortunately she failed to follow back up it is unclear why. She does not remember. The patient states that she has had the weakness, dizziness, and balance issues for the past year but she had some of this in 2022. She had a nerve ablasion in October and she has felt worse since then.She has had more difficulty walking, She is walking better and still has pain. The feels that she may have some sciatica on the left. Her symptoms have been getting worse. Denisha states she is still getting dizzy spells. She states the dizziness is daily and can be multiple times a day. She can get off balance and can have spinning. She does use the meclizine and it does help. She does do the HEP. She states it lasts about 2 minutes. It is worse if she is tired. She states she will occasionally feel like she is on a boat. She states she does have some numbness/tingling in both hands. It has started to worsen a couple months ago. She reports dropping items. She has trouble grabbing items. She denies pain. She has weakness in her right arm. She denies falls and is walking with a cane. The left tingling is still there but is a little better She states that she still has poor sleep and tosses and turns all night. Her does help out more. She also admits that she does not sleep well because her is not there. She does sleep better when he is home. She had an ablation in her back done the end of October. She is off of the zanaflex, She has baclofen but only takes it occasionally. The baclofen does not make her sleepy at night. She does not remember if the tizanadine or flexeril made her sleepy at night She states that she states the wrong words a lot. She is not wearing her CPAP machine. She stopped using it when she was getting shots in her back and she got off of using it. 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 precancerous cells Past Surgical History: Procedure Laterality Date SECTION, LOW TRANSVERSE 2014 HYSTERECTOMY 06/27/2021 KNEE CARTILAGE SURGERY Right 2002 medial meniscus - Dr Spencer Family History Problem Relation Name Age of Onset Hypertension Mother Diabetes Mother Social History Tobacco Use Smoking status: Never Smokeless tobacco: Not on file Substance Use Topics Alcohol use: Not Currently Allergies: Celebrex [celecoxib], Gabapentin, Duloxetine, Gabapentin, and Hydrochlorothiazide General: No fever or chills HEENT: No nasal congestion or runny nose Pulmonary: No shortness of breath or cough Cardiovascular: No chest pain or palpitations GI: No nausea or vomiting : No dysuria or hematuria Musculoskeletal: No new aches or pains or muscle weakness Infectious: no recurrent fevers or infections Dermatologic: No rashes or skin lesions Neurologic: No new headaches or dizziness Vitals: 07/13/24 1538 BP: 130/84 Pulse: 96 SpO2: 96% Body mass index is 50.31 kg/m . weight: 284 lb Neurologic exam: General: obese, cooperative, pleasant Mental status: Awake, alert to person, place and time. Recent and remote memory are intact. Attention and concentration are normal. Fund of knowledge is appropriate for level of education. HEENT: NC/AT Cranial nerves: CN II: Visual rojas full to confrontation. No loss of vision CN III, IV, : pupils equal round and reactive to light. Extraocular movements intact. No ptosis present. CN V: Facial sensation is normal. CN VII: Full and symmetric facial movement. CN VIII: Hearing is normal CN IX and X: Palate elevates symmetrically. CN XI: Shoulder shrug is normal bilaterally. CN XII: Tongue is midline without atrophy or fasciculation. Speech: Clear and fluent no aphasia or dysarthria Pronator drift: Negative bilateral upper extremity Coordination: Intact, no signs of dysmetria Good finger to nose and rapid alternating movements Sensory: Sensation is intact to light, temperature and vibratory touch throughout four extremities. Pinprick intact in all four extremities. She is hypersensitive to pin and cold on the RUE and right face Motor: LUE 5/5 RUE 5/5 LLE 5/5 RLE 5/5 Tone: Physiologic, no tremor, bradykinesia or rigidity DTR: Bilateral Biceps 2/4 Bilateral BR 2/4 Bilateral Patellar 1/4 No spasticity Gait: Normal to casual gait Romberg's Negative Review and summary of old records: Assessment/Plan Diagnoses and all orders for this visit: Low back pain at multiple sites - tiZANidine (Zanaflex) 4 MG tablet; 1-2 po q hs - NVC 11-12 Nerves; Future - EMG 2 Extremities; Future Numbness and tingling - NVC 11-12 Nerves; Future - EMG 2 Extremities; Future - NVC 9-10 Nerves; Future - EMG 2 Extremities; Future IRENE (obstructive sleep apnea) Insomnia due to medical condition Class 3 severe obesity with serious comorbidity and body mass index (BMI) of 50.0 to 59.9 in adult,unspecified obesity type (CMS/HCC) Sleep deprivation Word finding difficulty 38-year-old female who comes in complaining of worsening bilateral upper extremity numbness and tingling more into her hands. She has some hypersensitivity in the right upper extremity and right face. She was worked up for some of this in the past and had a MRI of the brain that showed small-vessel changes but was otherwise nonacute. She is also having worsening low back pain and tingling going down her left leg most consistent with a lumbar radiculopathy versus sciatica. She does see pain management and had an ablation and she feels like some of her symptoms are worse since her ablation. Sheis walking with a cane due to the pain down the left leg. With all of this back years ago she had aloss of smell. She felt like when she had her ablation her smoking back but then she lost it again.It is unclear if maybe she had a asymptomatic COVID other than loss of smell. She has a history of a central and peripheral vertigo. She did do vestibular rehab in the past. This is now getting worse again. She is doing some of her home exercise program. Vestibular rehab but wants to hold she wants to do her regular home exercise program for this. She does admit that her sleep is disrupted with sleep maintenance insomnia due to her low back pain. She also has not been wearing her CPAP machine. I suspect sleep deprivation may be some of the trigger for the worsening of her symptomatology. She needs to get back on her CPAP machine. She does have baclofen but she is only taking that occasionally. It does not help her sleep. She can not take gabapentin due to side effect. We will go ahead and get her back on Zanaflex 4 mg she will start witha half but could actually work up to 2 at bedtime and let see if this will help with some of the back pain and potentially help as a sleep aid to get her sleeping better. She needs to get her CPAP machine back out and get it on and where it every night. I am hopeful some of the symptoms will improve with better sleep. We will go ahead and get EMG of bilateral upper and bilateral lower extremity to assess for any worsening radiculopathy neuropathy or other. Have underlying obesity would benefit from aggressive diet exercise and weight loss. She complains of some thought process and speech issues which I suspect are due to sleep deprivation. We will see what symptoms improve with better sleep. Plan I will order an electromyograph evaluation of the lower extremities to assess for nerve damage suchas lumbar radiculopathy, lumbar plexopathy, or peripheral neuropathy. I will order an electromyograph evaluation of the upper extremities to assess for nerve damage suchas cervical radiculopathy, brachial plexopathy, or entrapment mononeuropathy. Retry Zanaflex 4 mg can start with a half and work up to 2 at bedtime She had a previous VNG 02/14/2022 that show peripheral and central dysfunction Get the CPAP machine back on every single night Set sleep schedule Increase exercise to help with nighttime sleep Continue with pain management We will see what symptoms improve as her sleep improves. We can consider repeat MRI of the brain We can consider neuropsych testing We can consider lab work to look for metabolic disorder but we will do the above testing 1st. The diagnosis was all discussed with the patient. All questions were answered and they agreed with the treatment plan. Patient will call if there are any new issues or questions. Pt has been fully educated on their diagnosis, treatment options, and follow up plan Return to clinic: 2-3 weeks documented in this encounterCooper County [facility] [id number] History of Present illness Narrative* Allison Mendez NP - 07/05/2024 10:10 AM ESTAssociated Problem(s): Strain of right biceps muscle Sxs many years ago Has now had recurrence thinks may be related to using her cane and holding her puppy No imaging at this time, sxs wax and wane will monitor for now per pt request, told her if worsens contact office * ORTIZ FITZPATRICK - 07/05/2024 9:20 AM EST Pt states that last Thursday since going out to eat she has been having nausea, vomiting, and diarrhea. Pt states she might have had the stomach bug, she may have had fevers at night when sleeping she has also been very fatigue. Last time she had emesis was morning. Pt is still feeling nauseous and stomach cramps. Pt may want to discuss pain in her right bicep again. * Allison Mendez NP - 07/05/2024 9:20 AM EST Images from the original note were not included. Denisha Maldonado is a 38 y.o. female presents with chief complaint of No chief complaint on file. HPI: Pt states that last Thursday since going out to eat she has been having nausea, vomiting, and diarrhea. Pt states she might have had the stomach bug, she may have had fevers at night when sleeping she has also been very fatigue. Last time she had emesis was morning. Pt is still feeling nauseous and stomach cramps. Diabetes She presents for her follow-up diabetic visit. She has type 2 diabetes mellitus. Her disease coursehas been stable. Hypoglycemia symptoms include nervousness/anxiousness. Pertinent negatives for hypoglycemia include no dizziness, headaches, seizures or tremors. Associated symptoms include fatigue. Pertinent negatives for diabetes include no blurred vision, no chest pain, no polydipsia, no polyphagia and no polyuria. There are no hypoglycemic complications. Symptoms are stable. There are no diabetic complications. Pertinent negatives for diabetic complications include no PVD. Risk factors for coronary artery disease include diabetes mellitus, dyslipidemia, hypertension, obesity, sedentary lifestyle and stress. Current diabetic treatment includes oral agent (monotherapy). An MILKA inhibitor/angiotensin II receptor feli is being taken. She does not see a lapeler.Eye exam is current. Hypertension This is a chronic problem. The current episode started more than 1 year ago. The problem is controlled. Pertinent negatives include no blurred vision, chest pain, headaches, palpitations, peripheral edema or shortness of breath. There are no associated agents to hypertension. Risk factors for coronary artery disease include diabetes mellitus, dyslipidemia, obesity, sedentary lifestyle, stress andpost-menopausal state. Past treatments include angiotensin blockers and calcium channel blockers. The current treatment provides significant improvement. There are no compliance problems. There is nohistory of CAD/VT, heart failure or PVD. Identifiable causes of hypertension include a thyroid problem. Thyroid Problem Presents for follow-up visit. Symptoms include anxiety, diarrhea and fatigue. Patient reports no constipation, depressed mood, leg swelling, palpitations or tremors. The symptoms have been stable. There is no history of heart failure. Arm Pain Incident onset: years ago. There was no injury mechanism. Pain location: left biceps muscle. Quality: sharp. The pain does not radiate. The pain is moderate. The pain has been Intermittent since the incident. Pertinent negatives include no chest pain, numbness or tingling. The symptoms are aggravated by movement. She has tried nothing for the symptoms. SUBJECTIVE: MEDICATIONS: Current Outpatient Medications Medication Instructions aspirin 81 mg, Daily atorvastatin (LIPITOR) 10 mg, Oral, Nightly baclofen (LIORESAL) 10 mg, 3 times daily PRN busPIRone (BUSPAR) 10 mg, Oral, Every 8 hours PRN cholecalciferol (VITAMIN D-3) 50 mcg, Oral, Daily, Take 50 mcg by mouth Daily cyanocobalamin (VITAMIN B-12) 1,000 mcg, Daily diclofenac sodium 4 g, 4 times daily FLUoxetine (PROZAC) 10 mg, Oral, Daily ibuprofen (IBU) 800 mg, Every 8 hours PRN insulin pen needle (Droplet Pen [place]) 31G x 5 mm misc Use as instructedUSE DIRECTED DAILY levothyroxine (SYNTHROID, LEVOXYL) 150 mcg, Oral, Daily before breakfast losartan (COZAAR) 100 mg, Oral, Daily magnesium oxide (MAG-OX) 400 mg, Daily metFORMIN (GLUCOPHAGE) 1,000 mg, Oral, Daily with breakfast tiZANidine (ZANAFLEX) 4 mg, Every 6 hours PRN triamcinolone (Nasacort) 55 MCG/ACT nasal inhaler 2 sprays, Daily Turmeric (CurcuPlex-95) 500 MG capsule Take by mouth verapamil ER (VERELAN) 180 mg, Oral, Daily ALLERGIES: Allergies Allergen Reactions Celebrex [Celecoxib] Other Pt had swelling in her knees, dizziness, spiked BP and heart rate, chest pain/pressure, and SOB Gabapentin Anxiety Pt states that she felt dizzy and weird not herself. Duloxetine Other Gabapentin Unknown Hydrochlorothiazide Other Reaction(s): Unknown REVIEW OF SYMPTOMS: Review of Systems Constitutional: Positive for fatigue. Negative for appetite change, chills and fever. HENT: Negative for congestion, ear pain and sore throat. Eyes: Negative for blurred vision, pain, discharge, redness and visual disturbance. Respiratory: Negative for cough, shortness of breath and wheezing. Cardiovascular: Negative for chest pain, palpitations and leg swelling. Gastrointestinal: Positive for diarrhea and nausea. Negative for abdominal pain (cramping), blood in stool, constipation and vomiting. Genitourinary: Negative for difficulty urinating, dysuria and frequency. Musculoskeletal: Positive for arthralgias, back pain and myalgias. Negative for joint swelling. Skin: Negative for rash and wound. Neurological: Negative for dizziness, tingling, tremors, seizures, syncope, numbness and headaches. Psychiatric/Behavioral: Negative for behavioral problems, self-injury and suicidal ideas. The patient is nervous/anxious. Hematological: Does not bruise/bleed easily. Endocrine: Negative for polydipsia, polyphagia and polyuria. Allergic/Immunologic: Negative for environmental allergies and food allergies. 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 OBJECTIVE: Visit Vitals BP 122/86 (BP Location: Left arm, Patient Position: Sitting, BP Cuff Size: Large adult) Pulse 92 Temp 98.3 F (Temporal) Resp 19 Ht 5' 3 Wt 288 lb 6.4 oz SpO2 99% BMI 51.09 kg/m Smoking Status Never BSA 2.41 m Physical Exam Vitals and nursing note reviewed. Constitutional: General: She is not in acute distress. Appearance: Normal appearance. HENT: Head: Normocephalic and atraumatic. Right Ear: External ear normal. Left Ear: External ear normal. Nose: Nose normal. Mouth/Throat: Mouth: Mucous membranes are moist. Eyes: Extraocular Movements: Extraocular movements intact. Conjunctiva/sclera: Conjunctivae normal. Neck: Vascular: No carotid bruit. Cardiovascular: Rate and Rhythm: Normal rate and regular rhythm. Pulses: Normal pulses. Heart sounds: Normal heart sounds. Pulmonary: Effort: Pulmonary effort is normal. Breath sounds: Normal breath sounds. No wheezing or rales. Abdominal: General: Bowel sounds are normal. There is no distension. Palpations: Abdomen is soft. There is no mass. Tenderness: There is no abdominal tenderness. Musculoskeletal: General: Normal range of motion. Cervical back: Normal range of motion and neck supple. Right lower leg: No edema. Left lower leg: No edema. Comments: Minimal tenderness to proximal biceps tendon and body of biceps No deformity noted, strength with flex/ext of right arm 5/5 Hand grasp= bilat, right shoulder near full ROM Cuff strength 5/5 Skin: General: Skin is warm and dry. Capillary Refill: Capillary refill takes 2 to 3 seconds. Findings: No rash. Neurological: General: No focal deficit present. Mental Status: She is alert and oriented to person, place, and time. Psychiatric: Mood and Affect: Mood normal. Behavior: Behavior normal. Thought Content: Thought content normal. Judgment: Judgment normal. ASSESSMENT AND PLAN: No follow-ups on file. Problem List Items Addressed This Visit Difficulty walking Relevant Orders Iron + transferrin + TIBC Sedimentation rate, automated C-reactive protein Type 2 diabetes mellitus without complication, without long-term current use of insulin (CMS/HCC) Check blood sugars daily, notify if <70 or >200. Take medications (pills or insulin) as directed. Monitor for s/s of hypoglycemia (sweaty, dizziness, nausea, vomiting, or shakiness). Watch for increase in thirst, urination, or appetite. Inspect feet frequently monitoring for open wounds , andalso recommend yearly eye exam. Pt should attempt [...] increase metformin to 1000mg daily A1c: 5.8% Relevant Orders POCT glycosylated hemoglobin (Hb A1C) docked device (Completed) Comprehensive metabolic panel Urinalysis with reflex microscopic (clean catch) Microalbumin / creatinine, urine ratio Vitamin D deficiency Relevant Orders Comprehensive metabolic panel Vitamin D 25 hydroxy Tachycardia Relevant Medications verapamil ER (Verelan) 180 MG 24 hr capsule Hypothyroidism (acquired) (CMS/HCC) Currently taking levothyroxine at 150mcg daily Check labs yearly and prn change in symptoms or change in dose Relevant Medications levothyroxine (Synthroid, Levoxyl) 150 MCG tablet Other Relevant Orders TSH T4, free Iron + transferrin + TIBC Primary hypertension (CMS/HCC) - Primary Please check blood pressure daily and record DASH diet Limit caffeine Take medication as directed Contact office if chest pain, pressure, dizziness, shortness of breath, swelling legs Recommend slow position changes Current meds: verapamil, ;losartan Last visit increased losartan dose Relevant Orders Comprehensive metabolic panel Urinalysis with reflex microscopic (clean catch) Microalbumin / creatinine, urine ratio CBC and differential Mixed hyperlipidemia (CMS/HCC) Relevant Medications atorvastatin (Lipitor) 10 MG tablet Other Relevant Orders Comprehensive metabolic panel Lipid panel Fatigue Check labs Relevant Orders Vitamin B12 Iron + transferrin + TIBC Ferritin RESOLVED: BMI 45.0-49.9, adult ([facility]) Morbid (severe) obesity due to excess calories ([facility]) Discussed with patient their BMI (actual, verses [...] any GLP 1 for her to utilize Strain of right biceps muscle Sxs many years ago Has now had recurrence thinks may be related to using her cane and holding her puppy No imaging at this time, sxs wax and wane will monitor for now per pt request, told her if worsens contact office * Allison Mendez NP - 07/05/2024 6:30 AM ESTAssociated Problem(s): Fatigue Check labs * Allison Mendez NP - 07/05/2024 6:29 AM ESTAssociated Problem(s): Hypothyroidism (acquired) ([facility]) Currently taking levothyroxine at 150mcg daily Check labs yearly and prn change in symptoms or change in dose * Allison Mendez NP - 07/05/2024 6:25 AM ESTAssociated Problem(s): Type 2 diabetes mellitus without complication, without long-term current useof insulin ([facility]) Check blood sugars daily, notify if <70 or >200. Take medications (pills or insulin) as directed. Monitor for s/s of hypoglycemia (sweaty, dizziness, nausea, vomiting, or shakiness). Watch for increase in thirst, urination, or appetite. Inspect feet frequently monitoring for open wounds , andalso recommend yearly eye exam. Pt should attempt [...] increase metformin to 1000mg daily A1c: 5.8% * Allison Mendez NP - 07/05/2024 6:25 AM ESTAssociated Problem(s): Morbid (severe) obesity due to excess calories (CMS/HCC) Discussed with patient their BMI (actual, verses [...] any GLP 1 for her to utilize * Allison Mendez NP - 07/05/2024 6:24 AM ESTAssociated Problem(s): Primary hypertension (CMS/HCC) Please check blood pressure daily and record DASH diet Limit caffeine Take medication as directed Contact office if chest pain, pressure, dizziness, shortness of breath, swelling legs Recommend slow position changes Current meds: verapamil, ;losartan Last visit increased losartan dose documented in this encounterCo[facility] [id number] Instructions* Patient Instructions* Allison Mendez NP - 07/05/2024 9:20 AM EST Fasting labs Keep appt with Neurology documented in this encounterCooper [facility] [id number] History of Present illness Narrative* Allison Mendez NP - 05/24/2024 10:00 AM ESTAssociated Problem(s): Panic attack (CMS/HCC) On fluoxetine dose is 10 mg and wants to stay on that dose * ORTIZ FITZPATRICK - 05/24/2024 9:20 AM EST Pt is unable to take the replacement for victoza- states she was not tolerating it well at all * Allison Mendez NP - 05/24/2024 9:20 AM EST Images from the original note were not included. Denisha Maldonado is a 38 y.o. female presents with chief complaint of Anxiety and Hypertension HPI: Diabetes: ryblesus caused swelling, balance issues, migraines, so stopped that. Anxiety Presents for follow-up visit. Symptoms include chest pain, depressed mood, dizziness, excessive worry, irritability and nervous/anxious behavior. Patient reports no nausea, palpitations, shortness ofbreath or suicidal ideas. Symptoms occur most days. The severity of symptoms is moderate. Compliance with medications is 76-100%. Hypertension This is a chronic problem. The current episode started more than 1 year ago. The problem is unchanged. The problem is controlled. Associated symptoms include anxiety and chest pain. Pertinent negatives include no headaches, palpitations, peripheral edema or shortness of breath. There are no associated agents to hypertension. Risk factors for coronary artery disease include diabetes mellitus, dyslipidemia, obesity and sedentary lifestyle. SUBJECTIVE: MEDICATIONS: Current Outpatient Medications Medication Instructions aspirin 81 mg, Daily atorvastatin (LIPITOR) 10 mg, Oral, Nightly baclofen (LIORESAL) 10 mg, 3 times daily PRN busPIRone (BUSPAR) 10 mg, Oral, Every 8 hours PRN cholecalciferol (VITAMIN D-3) 50 mcg, Oral, Daily, Take 50 mcg by mouth Daily cyanocobalamin (VITAMIN B-12) 1,000 mcg, Daily diclofenac sodium 4 g, 4 times daily FLUoxetine (PROZAC) 10 mg, Oral, Daily ibuprofen (IBU) 800 mg, Every 8 hours PRN insulin pen needle (Droplet Pen [place]) 31G x 5 mm [facility] Use as instructedUSE DIRECTED DAILY levothyroxine (SYNTHROID, LEVOXYL) 150 mcg, Oral, Daily before breakfast losartan (COZAAR) 100 mg, Oral, Daily magnesium oxide (MAG-OX) 400 mg, Daily metFORMIN (GLUCOPHAGE) 1,000 mg, Oral, Daily with breakfast tiZANidine (ZANAFLEX) 4 mg, Every 6 hours PRN triamcinolone (Nasacort) 55 MCG/ACT nasal inhaler 2 sprays, Daily Turmeric (CurcuPlex-95) 500 MG capsule Take by mouth verapamil ER (VERELAN) 180 mg, Oral, Daily ALLERGIES: Allergies Allergen Reactions Celebrex [Celecoxib] Other Pt had swelling in her knees, dizziness, spiked BP and heart rate, chest pain/pressure, and SOB Gabapentin Anxiety Pt states that she felt dizzy and weird not herself. Duloxetine Other Gabapentin Unknown Hydrochlorothiazide Other Reaction(s): Unknown REVIEW OF SYMPTOMS: Review of Systems Constitutional: Positive for irritability. Negative for appetite change, chills and fever. HENT: Negative for congestion, ear pain and sore throat. Eyes: Negative for pain, discharge, redness and visual disturbance. Respiratory: Negative for cough, shortness of breath and wheezing. Cardiovascular: Positive for chest pain. Negative for palpitations and leg swelling. Gastrointestinal: Negative for abdominal pain, blood in stool, constipation, diarrhea, nausea and vomiting. Genitourinary: Negative for difficulty urinating, dysuria and frequency. Musculoskeletal: Positive for arthralgias and myalgias. Negative for back pain and joint swelling. Skin: Negative for rash and wound. Neurological: Positive for dizziness. Negative for tremors, seizures, syncope and headaches. Psychiatric/Behavioral: Negative for behavioral problems, self-injury and suicidal ideas. The patient is nervous/anxious. Hematological: Does not bruise/bleed easily. Endocrine: Negative for polydipsia, polyphagia and polyuria. Allergic/Immunologic: Negative for environmental allergies and food allergies. 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 OBJECTIVE: Visit Vitals BP (!) 130/100 (BP Location: Left arm, Patient Position: Sitting, BP Cuff Size: Large adult) Pulse 84 Temp 98.3 F (Temporal) Resp 20 Ht 5' 3 Wt 284 lb 12.8 oz SpO2 97% BMI 50.45 kg/m Smoking Status Never BSA 2.39 m Physical Exam Vitals and nursing note reviewed. Constitutional: General: She is not in acute distress. Appearance: Normal appearance. She is obese. HENT: Head: Normocephalic and atraumatic. Right Ear: External ear normal. Left Ear: External ear normal. Nose: Nose normal. Mouth/Throat: Mouth: Mucous membranes are moist. Eyes: Extraocular Movements: Extraocular movements intact. Conjunctiva/sclera: Conjunctivae normal. Neck: Vascular: No carotid bruit. Cardiovascular: Rate and Rhythm: Normal rate and regular rhythm. Pulses: Normal pulses. Heart sounds: Normal heart sounds. Pulmonary: Effort: Pulmonary effort is normal. Breath sounds: Normal breath sounds. Musculoskeletal: General: Normal range of motion. Cervical back: Normal range of motion and neck supple. Right lower leg: No edema. Left lower leg: No edema. Skin: General: Skin is warm and dry. Capillary Refill: Capillary refill takes 2 to 3 seconds. Findings: No rash. Neurological: General: No focal deficit present. Mental Status: She is alert and oriented to person, place, and time. Psychiatric: Mood and Affect: Mood normal. Behavior: Behavior normal. Thought Content: Thought content normal. Judgment: Judgment normal. ASSESSMENT AND PLAN: Follow up in about 6 weeks (around 07/05/2024) for Recheck. Problem List Items Addressed This Visit Type 2 diabetes mellitus without complication, without long-term current use of insulin ([facility]) Check blood sugars daily, notify if <70 or >200. Take medications (pills or insulin) as directed. Monitor for s/s of hypoglycemia (sweaty, dizziness, nausea, vomiting, or shakiness). Watch for increase in thirst, urination, or appetite. Inspect feet frequently monitoring for open wounds , andalso recommend yearly eye exam. Pt should attempt [...] to 1000mg daily A1c: 5.4 on 03/09/24 Relevant Medications metFORMIN (Glucophage) 1000 MG tablet Tachycardia Is taking verapamil for this Relevant Medications verapamil ER (Verelan) 180 MG 24 hr capsule Panic attack (CMS/HCC) On fluoxetine dose is 10 mg and wants to stay on that dose Hypothyroidism (acquired) ([facility]) Currently taking levothyroxine at 150mcg daily Check labs yearly and prn change in symptoms or change in dose Primary hypertension ([facility]) - Primary Please check blood pressure daily and record DASH diet Limit caffeine Take medication as directed Contact office if chest pain, pressure, dizziness, shortness of breath, swelling legs Recommend slow position changes Current meds: verapamil, ;losartan Increase dose of losartan to 100mg daily Fu in 6 weeks Relevant Medications losartan (Cozaar) 100 MG tablet Malignant neoplasm of endometrium (CMS/HCC) Had hysterectomy Continue per [employer] Fibromyalgia Many vague symptoms, could not tolerate duloxetine Will have neuro see her again Morbid (severe) obesity due to excess calories (CMS/HCC) Discussed with patient their BMI (actual, verses recommended). We have also discussed lifestyle modifications: attempts to perform physical activity as chronic conditions allow, also to monitor dietary intake: increasing protein/fruits/veggies and lowering carb intake (unless contraindicated). Limit sodas, juices, and sugary drinks. Also discussed oral medications that can be utilized for weight loss, as well as surgical options for weight loss. Relevant Orders Ambulatory referral to Weight Management Body mass index (BMI) 45.0-49.9, adult ([facility]) Relevant Orders Ambulatory referral to Weight Management * Allison Mendez NP - 05/24/2024 6:25 AM ESTAssociated Problem(s): Type 2 diabetes mellitus without complication, without long-term current useof insulin ([facility]) Check blood sugars daily, notify if <70 or >200. Take medications (pills or insulin) as directed. Monitor for s/s of hypoglycemia (sweaty, dizziness, nausea, vomiting, or shakiness). Watch for increase in thirst, urination, or appetite. Inspect feet frequently monitoring for open wounds , andalso recommend yearly eye exam. Pt should attempt [...] to 1000mg daily A1c: 5.4 on 03/09/24 * Allison eMndez NP - 05/24/2024 6:24 AM ESTAssociated Problem(s): Morbid (severe) obesity due to excess calories ([facility]) Discussed with patient their BMI (actual, verses recommended). We have also discussed lifestyle modifications: attempts to perform physical activity as chronic conditions allow, also to monitor dietary intake: increasing protein/fruits/veggies and lowering carb intake (unless contraindicated). Limit sodas, juices, and sugary drinks. Also discussed oral medications that can be utilized for weight loss, as well as surgical options for weight loss. * Allison Mendez NP - 05/24/2024 6:23 AM ESTAssociated Problem(s): Hypothyroidism (acquired) (CMS/HCC) Currently taking levothyroxine at 150mcg daily Check labs yearly and prn change in symptoms or change in dose * Allison Mendez NP - 05/24/2024 6:22 AM ESTAssociated Problem(s): Fibromyalgia Many vague symptoms, could not tolerate duloxetine Will have neuro see her again * Allison Mendez NP - 05/24/2024 6:21 AM ESTAssociated Problem(s): Malignant neoplasm of endometrium (CMS/HCC) Had hysterectomy Continue per [employer] * Allison Mendez NP - 05/24/2024 6:21 AM ESTAssociated Problem(s): Tachycardia Is taking verapamil for this * Allison Mendez NP - 05/24/2024 6:20 AM ESTAssociated Problem(s): Primary hypertension (CMS/HCC) Please check blood pressure daily and record DASH diet Limit caffeine Take medication as directed Contact office if chest pain, pressure, dizziness, shortness of breath, swelling legs Recommend slow position changes Current meds: verapamil, ;losartan Increase dose of losartan to 100mg daily Fu in 6 weeks documented in this encounterCooper [facility] [id number] Instructions* Patient Instructions* Allison Mendez NP - 05/24/2024 9:20 AM EST Diabetes: increase metformin to 1000mg daily [facility] BP: increase losartan to 100mg daily We will call neurology documented in this encounterCooper [facility] [id number] History of Present illness Narrative* Allison Mendez NP - 04/12/2024 4:46 PM ESTAssociated Problem(s): Difficulty walking Uses cane at times Over the last 6-8 months multiple vague symptoms : wide spread pain , balance issues, fatigue, myalgias. Uncertain if all related to her lumbar spine issues as well as fibro ??MS?? * Allison Mendez NP - 04/12/2024 4:45 PM ESTAssociated Problem(s): Vertigo Pt is going to reach out to neurology regarding her dizziness etc C/o fatigue, muscle pain as well * ORTIZ FITZPATRICK - 04/12/2024 1:00 PM EST Pt stopped the cymbalta she had flu like symptoms, pain, did not feel her self, acid reflex and heartburn * Allison Mendez NP - 04/12/2024 1:00 PM EST Images from the original note were not included. Denisha Maldonado is a 38 y.o. female presents with chief complaint of Diabetes HPI: Could not continue with Dulxoetine , stopped in about 2 weeks ago Anxiety Presents for follow-up visit. Symptoms include chest pain, depressed mood, dizziness, excessive worry, irritability and nervous/anxious behavior. Patient reports no nausea, palpitations, shortness ofbreath or suicidal ideas. Symptoms occur most days. The severity of symptoms is moderate. The quality of sleep is fair. Compliance with medications is 0-25%. SUBJECTIVE: MEDICATIONS: Current Outpatient Medications Medication Instructions acetic acid (Vosol) 2 % otic solution 3 drops, Left Ear, 3 times daily aspirin 81 mg, Daily atorvastatin (LIPITOR) 10 mg, Oral, Nightly baclofen (LIORESAL) 10 mg, 3 times daily PRN busPIRone (BUSPAR) 10 mg, Oral, Every 8 hours PRN cholecalciferol (VITAMIN D-3) 50 mcg, Oral, Daily, Take 50 mcg by mouth Daily cyanocobalamin (VITAMIN B-12) 1,000 mcg, Daily diclofenac sodium 4 g, Topical, 4 times daily FLUoxetine (PROZAC) 10 mg, Oral, Daily ibuprofen (IBU) 800 mg, Every 8 hours PRN insulin pen needle (Droplet Pen [place]) 31G x 5 mm [facility] USE DIRECTED DAILY levothyroxine (SYNTHROID, LEVOXYL) 150 mcg, Oral, Daily before breakfast liraglutide (Victoza) 18 MG/3ML injection INJECT 1.8 MG SUBCUTANEOUSLY ONCE DAILY losartan (COZAAR) 50 mg, Oral, Daily magnesium oxide (MAG-OX) 400 mg, Daily meclizine (ANTIVERT) 25 mg, Every 12 hours PRN metFORMIN (GLUCOPHAGE) 500 mg, Oral, Daily tiZANidine (ZANAFLEX) 4 mg, Every 6 hours PRN triamcinolone (Nasacort) 55 MCG/ACT nasal inhaler 2 sprays, Each Nostril, Daily Turmeric (CurcuPlex-95) 500 MG capsule Take by mouth verapamil ER (VERELAN) 180 mg, Oral, Daily ALLERGIES: Allergies Allergen Reactions Celebrex [Celecoxib] Other Pt had swelling in her knees, dizziness, spiked BP and heart rate, chest pain/pressure, and SOB Gabapentin Anxiety Pt states that she felt dizzy and weird not herself. Duloxetine Other Gabapentin Unknown Hydrochlorothiazide Other Reaction(s): Unknown REVIEW OF SYMPTOMS: Review of Systems Constitutional: Positive for irritability. Negative for appetite change, chills and fever. HENT: Negative for congestion, ear pain and sore throat. Eyes: Negative for pain, discharge, redness and visual disturbance. Respiratory: Negative for cough, shortness of breath and wheezing. Cardiovascular: Positive for chest pain. Negative for palpitations and leg swelling. Gastrointestinal: Negative for abdominal pain, blood in stool, constipation, diarrhea, nausea and vomiting. Genitourinary: Negative for difficulty urinating, dysuria and frequency. Musculoskeletal: Positive for back pain. Negative for arthralgias, joint swelling and myalgias. Skin: Negative for rash and wound. Neurological: Positive for dizziness. Negative for tremors, seizures, syncope and headaches. Psychiatric/Behavioral: Negative for behavioral problems, self-injury and suicidal ideas. The patient is nervous/anxious. Hematological: Does not bruise/bleed easily. Endocrine: Negative for polydipsia, polyphagia and polyuria. Allergic/Immunologic: Negative for environmental allergies and food allergies. 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 OBJECTIVE: Visit Vitals BP 128/86 (BP Location: Left arm, Patient Position: Sitting, BP Cuff Size: Adult long) Pulse 90 Temp 98.3 F (Temporal) Resp 17 Ht 5' 3 Wt 277 lb 12.8 oz SpO2 99% BMI 49.21 kg/m Smoking Status Never BSA 2.37 m Physical Exam Vitals and nursing note reviewed. Constitutional: General: She is not in acute distress. Appearance: Normal appearance. She is obese. She is not ill-appearing. HENT: Head: Normocephalic and atraumatic. Right Ear: Tympanic membrane, ear canal and external ear normal. Left Ear: Tympanic membrane, ear canal and external ear normal. Nose: Nose normal. No congestion or rhinorrhea. Mouth/Throat: Mouth: Mucous membranes are moist. Pharynx: No oropharyngeal exudate or posterior oropharyngeal erythema. Eyes: Extraocular Movements: Extraocular movements intact. Conjunctiva/sclera: Conjunctivae normal. Pupils: Pupils are equal, round, and reactive to light. Neck: Vascular: No carotid bruit. Cardiovascular: Rate and Rhythm: Normal rate and regular rhythm. Pulses: Normal pulses. Heart sounds: Normal heart sounds. Pulmonary: Effort: Pulmonary effort is normal. Breath sounds: Normal breath sounds. No wheezing or rales. Abdominal: General: Bowel sounds are normal. There is no distension. Palpations: Abdomen is soft. There is no mass. Tenderness: There is no abdominal tenderness. Musculoskeletal: General: Normal range of motion. Cervical back: Normal range of motion and neck supple. Right lower leg: No edema. Left lower leg: No edema. Comments: MMT 5/5 bilat LE DTR's 2+ bilat patellar/achilles No evidence of muscle atrophy Lymphadenopathy: Cervical: No cervical adenopathy. Skin: General: Skin is warm and dry. Capillary Refill: Capillary refill takes 2 to 3 seconds. Findings: No rash. Neurological: General: No focal deficit present. Mental Status: She is alert and oriented to person, place, and time. Cranial Nerves: No cranial nerve deficit. Comments: Neg ulnar drift Psychiatric: Mood and Affect: Mood normal. Behavior: Behavior normal. Thought Content: Thought content normal. Judgment: Judgment normal. ASSESSMENT AND PLAN: Follow up in about 6 weeks (around 05/24/2024) for Recheck. Problem List Items Addressed This Visit Difficulty walking Uses cane at times Over the last 6-8 months multiple vague symptoms : wide spread pain , balance issues, fatigue, myalgias. Uncertain if all related to her lumbar spine issues as well as fibro ??MS?? Obesity Discussed with patient their BMI (actual, verses recommended). We have also discussed lifestyle modifications: attempts to perform physical activity as chronic conditions allow, also to monitor dietary intake: increasing protein/fruits/veggies and lowering carb intake (unless contraindicated). Limit sodas, juices, and sugary drinks. Also discussed oral medications that can be utilized for weight loss, as well as surgical options for weight loss. Panic attack (CMS/HCC) Last visit started duloxetine, could not tolerate [...] Please contact the office if these occur. Relevant Medications FLUoxetine (PROzac) 10 MG capsule Primary hypertension (CMS/HCC) - Primary Please check blood pressure daily and record DASH diet Limit caffeine Take medication as directed Contact office if chest pain, pressure, dizziness, shortness of breath, swelling legs Recommend slow position changes Current meds: verapamil, ;losartan Vertigo Pt is going to reach out to neurology regarding her dizziness etc C/o fatigue, muscle pain as well Fibromyalgia Last appt started duloxetine, could not tolerate it I would like to reach out to Neurology, talk with them about some of her vague symptoms with balance, as well as dizziness etc BMI 45.0-49.9, adult (CMS/HCC) Chronic otitis externa of left ear Relevant Medications acetic acid (Vosol) 2 % otic solution * Allison Mendez NP - 04/12/2024 6:50 AM ESTAssociated Problem(s): Panic attack (CMS/HCC) Last visit started duloxetine, could not tolerate [...] Please contact the office if these occur. * Allison Mendez NP - 04/12/2024 6:49 AM ESTAssociated Problem(s): Hypothyroidism (acquired) ([facility]) Currently taking levothyroxine at 150mcg daily Check labs yearly and prn change in symptoms or change in dose * Allison Mendez NP - 04/12/2024 6:48 AM ESTAssociated Problem(s): Obesity Discussed with patient their BMI (actual, verses recommended). We have also discussed lifestyle modifications: attempts to perform physical activity as chronic conditions allow, also to monitor dietary intake: increasing protein/fruits/veggies and lowering carb intake (unless contraindicated). Limit sodas, juices, and sugary drinks. Also discussed oral medications that can be utilized for weight loss, as well as surgical options for weight loss. * Allison Mendez NP - 04/12/2024 6:48 AM ESTAssociated Problem(s): Type 2 diabetes mellitus without complication, without long-term current useof insulin ([facility]) Check blood sugars daily, notify if <70 or >200. Take medications (pills or insulin) as directed. Monitor for s/s of hypoglycemia (sweaty, dizziness, nausea, vomiting, or shakiness). Watch for increase in thirst, urination, or appetite. Inspect feet frequently monitoring for open wounds , andalso recommend yearly eye exam. Pt should attempt to remain as physically active as chronic conditions allow, as well as trying to follow a diet low in carbohydrates, and simple sugars. Current meds: victoza, metformin, statin, asa * Allison Mendez NP - 04/12/2024 6:47 AM ESTAssociated Problem(s): Fibromyalgia Last appt started duloxetine, could not tolerate it I would like to reach out to Neurology, talk with them about some of her vague symptoms with balance, as well as dizziness etc * Allison Mendez NP - 04/12/2024 6:47 AM ESTAssociated Problem(s): Primary hypertension (CMS/HCC) Please check blood pressure daily and record DASH diet Limit caffeine Take medication as directed Contact office if chest pain, pressure, dizziness, shortness of breath, swelling legs Recommend slow position changes Current meds: verapamil, ;losartan documented in this [facility]12-03-2024 Instructions* Patient Instructions* Allison Mendez NP - 04/12/2024 1:00 PM EST Call neurology for fu appt Trial ear drop left ear every 8 hours for 7 days, if not better contact office Trial fluoxetine at 10mg daily documented in this [facility]12-02-2024 History of Present illness Narrative* Mary Simmons APRN-LAURO - 04/11/2024 11:30 AM EST Chief Complaint No problems Reason for Visit 2-year follow-up Patient presents to the office today for outpatient follow-up for primary prevention. Last evaluated in clinic by Dr. Garcia June 2022. Presents today ambulatory with steady gait. Accompanied by patient Patient denies any hospitalizations or significant changes to interval medical history since last office follow-up. History of Present Illness Patient is a pleasant 38-year-old female who originally presented for cardiology consult in 2019 due to atypical chest pain and vertigo. Her vertigo has been treated by neurology, primary prevention continues to be optimally managed by PCP. She did not have any stress testing as chest pain was clearly noncardiac in origin. She remains active where she cares for her children and does housework on a daily basis. Her only limitations to activity level are related to lumbar stenosis. She ambulated in from the parking lot without concerns. She denies any type of exertional complaints, there are nopalpitations. Of the last 2 years she has remained stable from a cardiovascular standpoint. As per Dr. Garcia's prior recommendation she can now follow-up with [facility] on an as-needed basis. Patient is agreement to this approach. Patient reports that overall has complaint(s) of chest pain, chest pressure/discomfort, claudication, dyspnea, exertional chest pressure/discomfort, and fatigue. Daily activity: Greater than 4 METS Denies any change in exercise capacity or functional tolerance since last office visit. The importance of secondary prevention reviewed: HTN: Optimal HLD: Treated DM: Treated with reported hemoglobin A1c 5.6 Smoker: Denies BMI: Reviewed the merits of healthy lifestyle choices on overall cardiovascular health. She is actively working to lose weight. Systolic murmur is on her diagnosis list. I cannot auscultate any murmur today, on record review there been no documented murmur by Dr. Garcia. No prior echocardiogram. Review of Systems Cardiovascular: Negative for chest pain, dyspnea on exertion, irregular heartbeat, leg swelling, near-syncope, orthopnea, palpitations, paroxysmal nocturnal dyspnea and syncope. Visit Vitals BP 122/76 (BP Location: Left arm, Patient Position: Sitting) Pulse 82 Ht 1.6 m (5' 3 ) Wt 124 kg (273 lb) BMI 48.36 kg/m Smoking Status Never BSA 2.35 m Physical Exam Vitals and nursing note reviewed. HENT: Head: Normocephalic. Cardiovascular: Rate and Rhythm: Normal rate and regular rhythm. Heart sounds: Normal heart sounds. Pulmonary: Effort: Pulmonary effort is normal. Breath sounds: Normal breath sounds. Abdominal: Palpations: Abdomen is soft. Musculoskeletal: Right lower leg: No edema. Left lower leg: No edema. Skin: General: Skin is warm and dry. Neurological: General: No focal deficit present. Mental Status: She is alert. Psychiatric: Mood and Affect: Mood normal. Behavior: Behavior normal. Allergies Allergen Reactions Celecoxib Shortness of breath Pt had swelling in her knees, dizziness, spiked BP and heart rate, chest pain/pressure, and SOB Hydrochlorothiazide Anaphylaxis and Fever Cymbalta [Duloxetine] Other Gabapentin Other Current Outpatient Medications Medication Instructions acetaminophen (TYLENOL 8 HOUR) 650 mg, Every 8 hours PRN aspirin 81 mg, Daily atorvastatin (LIPITOR) 10 mg, Nightly busPIRone (BUSPAR) 10 mg, 2 times daily cholecalciferol (VITAMIN D3) 1,000 Units, Daily cyanocobalamin (VITAMIN B-12) 1,000 mcg, Daily diclofenac sodium (VOLTAREN) 4 g, 4 times daily levothyroxine (SYNTHROID, LEVOXYL) 150 mcg, Daily losartan (COZAAR) 50 mg, Daily magnesium oxide 500 mg capsule 1 capsule, 2 times daily meclizine (ANTIVERT) 25 mg, 3 times daily PRN metFORMIN (Glucophage) 500 mg tablet 1 tablet, Daily multivitamin with minerals tablet 1 tablet, Daily sertraline (ZOLOFT) 100 mg, Daily tiZANidine (ZANAFLEX) 4 mg, Every 6 hours PRN triamcinolone (Nasacort) 55 mcg nasal inhaler 2 sprays, Daily turmeric root extract 500 mg capsule Take by mouth. verapamil ER (Veralan PM) 180 mg 24 hr capsule 1 capsule, Daily Victoza 3-[place] 1.2 mg, Daily Assessment: A 38-year-old female presents for 2-year follow-up. She continues to remain stable from a cardiovascular standpoint without any exacerbation of her atypical chest pain. Primary prevention measures are optimally managed by PCP. She will follow-up with [facility] on an as-needed basis. Plan: Through informed decision making process incorporating patients unique circumstances, the followingtreatment plan will be initiated: 1. Prescription drug management of cardiovascular medication for efficacy, adherence to treatment, side effect assessment and polypharmacy. Current treatment clinically warranted and to continue without modifications. 2. Return for follow-up; in the interim, contact the office if new symptoms arise. [facility] as needed Mary Simmons MSN, PROOFER-CRM CONSULTANT, PMHNP-BC [facility] Please excuse any errors in grammar or translation related to this dictation. Voice recognition software was utilized to prepare this document. documented in this [facility] Work Phone: 1(186) 711-780712-02-2024 Instructions* Patient Instructions* DB Walker - 04/11/2024 11:30 AM EST Please bring all medicines, vitamins, and herbal supplements with you when you come to the office. Prescriptions will not be filled unless you are compliant with your follow up appointments or have a follow up appointment scheduled as per instruction of your physician. Refills should be requested at the time of your visit. PLAN: Through informed decision making process incorporating patients unique circumstances, the followingtreatment plan will be initiated: 1. Prescription drug management of cardiovascular medication for efficacy, adherence to treatment, side effect assessment and polypharmacy. Current treatment clinically warranted and to continue without modifications. 2. Return for follow-up; in the interim, contact the office if new symptoms arise. [facility] as needed I encourage you to stay active and healthy, and to follow these healthy habits: Try to increase your intake of fish such as salmon and tuna and try to get 2 to 3 servings of fish per week. Increase your intake of plant-based protein listed here: Unprocessed nuts, walnuts, or almonds, Nuts and Seeds. Green vegetables such as Broccoli, Peas, Greens, Spinach Beans, Chickpeas, & Lentils Other sources include Potatoes, Quinoa, Seaweed, Soymilk, Tempeh, and Tofu. Increase food s higher in flavonoids found in black tea, green tea, apples, nuts, citrus fruit, berries, and dark chocolate. You should avoid fried foods, and sugary or starchy foods and sugary drinks, and void saturated fats. Try not to dine at restaurants more than once per month, and avoid fast food restaurants. Try to get restful sleep approximately 7-9 hours every night. Work towards getting 30 minutes of moderate intensity exercise 4 to 5 days per week. You should also try to exercise at least one hour per day with light walking. documented in this [facility] Work Phone: 1(233) 477-676611-11-2024 History of Present illness Narrative* Leida Gifford, BEAU - 03/21/2024 9:30 AM ESTAssociated Order(s): L Inj/Asp: R knee Post-Procedure Diagnose(s): Arthritis of right knee Images from the original note were not included. Subjective Patient ID: Denisha Maldonado is a 38 y.o. female. B/L knee pain RT Knee *wants inj RT knee pain x 29 years (1994) states she injured it in 1994 and tore her meniscus she is unsure how, but has had pain on and off since then. States in 2001 she had meniscus repair sx. with Dr. Villanueva in [place]. The pain has been getting worse the past 8 months, denies new injury. Pain anterior below patella, pain comes and goes, and is worse with walking. States she has been getting sciatica pains in her RT thigh the past 2 weeks. Admits on and off swelling, more with activity. Denies pain at rest. Pain at worst 7/10 with activity. Denies N/T. Denies waking at night. Admits tyl arthritis prn w/o relief. Admits ice and heat occas sometimes with relief. Has tried voltaren w/o relief. Does not wear a brace. She uses a cane if she is going to walk a lot. Sometimes limps from the pain. Admits locking and catching. Admits cracking and crunching. Admits giving out sensation. TX: xrays RT/LT knee 03/09/24 [facility], ice, heat with relief, voltaren, cane, MRI 2020 RT knee, P.T. 2020 LT Knee 5 days s/p depo medrol injection LT Knee (03/16/24) with 80% improvement LT knee pain x 10 years (2013), and has been getting worse the past month, NKI. Notes she has lumbar spondylosis and gets pinching pains which radiate down her thigh and into her LT knee. Also getssciatic pain. Pain anterior below patella, pain is constant since the past 8 months. Denies radiation. Admits on and off swelling, more with activity. Denies pain at rest. Pain at worst 7/10 with activity. Denies N/T. Denies waking at night. Admits tyl arthritis prn w/o relief. Admits ice and heat occas sometimes with relief. Has tried voltaren w/o relief. Does not wear a brace. She uses a cane if she is going to walk a lot. Sometimes limps from the pain. Admits locking and catching. Admits cracking and crunching. Admits giving out sensation. TX: xrays RT/LT knee 03/09/24 [facility], ice, heat with relief, voltaren, cane, MRI 2020 RT knee, P.T. 2020 Objective Knee Musculoskeletal Exam Inspection Right Erythema: none Effusion: none Edema: none Ecchymosis: none Palpation Right Tenderness: present Medial joint line: moderate Range of Motion Right Active extension: 0 Active flexion: 115 .PRO I reviewed the xrays of the right knee [facility] 03/09/24 reveals bilateral knee mild arthritis. Image Results: XR KNEE [address] [place] [address] XRay Report Signed Patient: DENISHA MALDONADO MR#: [id number] : 1985 Acct:[id number] Age/Sex: 38 / F ADM Date: 03/09/24 Loc: RAD Attending Dr: Allison Mendez FACILITY MANAGER Ordering Physician: Allison Mendez NP Date of Service: 03/09/24 Procedure(s): XR knee [place] [address]V Accession Number(s): [id number] cc: Allison Mendez NP [address] [address] Patient Name: DENISHA MALDONADO MRN: [facility]:[id number] date: 1985 Sex: F Assigned Patient Location: [facility] Current Patient Location: Accession/Order Number: [id number] Exam Date: 03/09/2024 10:40 Report Date: 03/10/2024 [...] Mild bilateral osteoarthritis Electronically authenticated by: VERO OSMAN Date: 03/10/2024 07:30 Dictated By: Vero Osman M.D. Signed By: 03/10/24732 DD/ 9 TD/TT: Manager [employer]: Sammy Inj/Asp: R knee on 03/21/2024 10:02 AM Indications: pain Details: 20 G needle, anterolateral approach Medications: 40 mg methylPREDNISolone acetate 40 MG/ML UTILIZING ASEPTIC TECHNIQUE PT GIVEN INJECTION IN RIGHT KNEE, NEUROVASC INTACT S/P INJ, TOLERATED WELL Procedure, treatment alternatives, risks and benefits explained, specific risks discussed. Consent was given by the patient. Assessment/Plan Encounter Diagnoses: ICD-10-CM 1. Right knee pain, unspecified chronicity M25.561 2. Arthritis of right knee M17.11 Discussion of options, pt notes she would like an injection, side effects of bleeding and infectiondiscussed, would like to proceed with the injection, using aspectic technique 40 mg of depo medrol was injected into the RIGHT lateral knee, pt tolerated well, bandaid applied, may do activities as tolerated, f/u in 2 weeks. documented in this encounterCo[facility] [id number] History of Present illness Narrative* Leida Gifford NP - 03/16/2024 9:15 AM ESTAssociated Order(s): L Inj/Asp: L knee Post-Procedure Diagnose(s): Arthritis of left knee Images from the original note were not included. Subjective Patient ID: Denisha Maldonado is a 38 y.o. female. B/L knee pain LT Knee is worse than RT *wants inj LT knee pain x 10 years (2014), and has been getting worse the past month, NKI. Notes she has lumbar spondylosis and gets pinching pains which radiate down her thigh and into her LT knee. Also getssciatic pain Pain anterior below patella, pain is constant since the past 8 months. Denies radiation. Admits on and off swelling, more with activity. Denies pain at rest. Pain at worst 7/10 with activity. Denies N/T. Denies waking at night. Admits tyl arthritis prn w/o relief. Admits ice and heat occas sometimes with relief. Has tried voltaren w/o relief. Does not wear a brace. She uses a cane if she is going to walk a lot. Sometimes limps from the pain. Admits locking and catching. Admits cracking and crunching. Admits giving out sensation. TX: xrays RT/LT knee 03/09/24 [facility], ice, heat with relief, voltaren, cane Objective Knee Musculoskeletal Exam Gait Limp: left Inspection Left Erythema: none Effusion: none Edema: none Ecchymosis: none Palpation Left Crepitus: patellofemoral Tenderness: present Medial joint line: moderate Patella: mild Range of Motion Left Active extension: 0 Active flexion: 115 Strength Left Extension: 4/5. Flexion: 4/5. I reviewed the xrays of the right knee [facility] 03/09/24 reveals bilateral knee mild arthritis. Image Results: XR KNEE [address] [place] [address] XRay Report Signed Patient: DENISHA MALDONADO MR#: [id number] : 1985 Acct:[id number] Age/Sex: 38 / F ADM Date: 03/09/24 Loc: RAD Attending Dr: Allison Mendez NP Ordering Physician: Allison Mendez NP Date of Service: 03/09/24 Procedure(s): XR knee [place] [address]V Accession Number(s): [id number] cc: Allison Mendez NP [address] [address] Patient Name: DENISHA MALDONADO MRN: [facility]:[id number] date: 1985 Sex: F Assigned Patient Location: [facility] Current Patient Location: Accession/Order Number: [id number] Exam Date: 03/09/2024 10:40 Report Date: 03/10/2024 [...] Mild bilateral osteoarthritis Electronically authenticated by: VERO OSMAN Date: 03/10/2024 07:30 Dictated By: Vero Osman M.D. Signed By: 03/10/24732 DD/ 9 TD/TT: Manager [employer]: Sammy Inj/Asp: L knee on 03/16/2024 9:30 AM Indications: pain Details: 20 G needle, anterolateral approach Medications: 40 mg methylPREDNISolone acetate 40 MG/ML Procedure, treatment alternatives, risks and benefits explained, specific risks discussed. Consent was given by the patient. Assessment/Plan Encounter Diagnoses: ICD-10-CM 1. Right knee pain, unspecified chronicity M25.561 2. Arthritis of right knee M17.11 Discussion of options, pt notes she would like an injection, side effects of bleeding and infectiondiscussed, would like to proceed with the injection, using aspectic technique 40 mg of depo medrol was injected into the left lateral knee, pt tolerated well, bandaid applied, may do activities as tolerated, f/u in 2 weeks. documented in this encounterCo[facility] [id number] History of Present illness Narrative* Allison Mendez NP - 03/09/2024 9:49 AM EDTAssociated Problem(s): Panic attack (CMS/HCC) Stop sertaline, trial duloxetine Take medication only [...] if these occur. Fu in 4 weeks * Allison Mendez NP - 03/09/2024 9:47 AM EDTAssociated Problem(s): Fibromyalgia Will start duloxetine at 30mg daily Fu in 4 weeks * Allison Mendez NP - 03/09/2024 9:37 AM EDTAssociated Problem(s): Obesity At max dose on victoza * Allison Mendez NP - 03/09/2024 9:37 AM EDTAssociated Problem(s): Type 2 diabetes mellitus without complication, without long-term current useof insulin ([facility] Check blood sugars daily, notify if <70 or >200. Take medications (pills or insulin) as directed. Monitor for s/s of hypoglycemia (sweaty, dizziness, nausea, vomiting, or shakiness). Watch for increase in thirst, urination, or appetite. Inspect feet frequently monitoring for open wounds , andalso recommend yearly eye exam. Pt should attempt to remain as physically active as chronic conditions allow, as well as trying to follow a diet low in carbohydrates, and simple sugars. A1c has good, but weight loss has stalled out, check A1c, consider changing injectables to possiblemounjaro * Allison Mendez NP - 03/09/2024 9:37 AM EDTAssociated Problem(s): Vitamin D deficiency Cont supplement * Allison Mendez NP - 03/09/2024 9:36 AM EDTAssociated Problem(s): Arthritis of both knees Cont NSAID, check xrays and go from there * Allison Mendez NP - 03/09/2024 9:33 AM EDTAssociated Problem(s): Primary hypertension (CMS/HCC) Restart cardizem and keep losartan as well Please check blood pressure daily and record DASH diet Limit caffeine Take medication as directed Contact office if chest pain, pressure, dizziness, shortness of breath, swelling legs Recommend slow position changes * Allison Mendez NP - 03/09/2024 9:32 AM EDTAssociated Problem(s): Tachycardia Restart cardizem * ORTIZ FITZPATRICK - 03/09/2024 9:20 AM EDT New pain from back issue that is moving down right leg Pt describes that both knees have been crunchy lately Pt is on the 6th week with therapy for her back however they have not addressed leg or knees Pt is asking for xray on knees to see how the progression of arthritis is Left ear was hurting about a month ago and changed to becoming itchy. * Allison Mendez NP - 03/09/2024 9:20 AM EDT Images from the original note were not included. Denisha Maldonado is a 38 y.o. female presents with chief complaint of No chief complaint on file. HPI: Low back pain: seeing pain mgmt, doing PT, waiting til after then MRI Pain : low back , constant, pressure, throbbing, sharp jabbings, pain radiates down bilat legs, andsome NT to left leg pain: bilat thighs, and on left stops at anterior knee. Is using muscle relaxers as well as NSAIDs, needing a cane to walk. No cauda Bilat knee pain: hx OA, long time since xray, cruchy and swelling, pain with walking left knee can be unstable at times. Hypertension This is a chronic problem. The current episode started more than 1 year ago. The problem is unchanged. The problem is uncontrolled. Pertinent negatives include no blurred vision, chest pain (anxiety), headaches, neck pain, orthopnea, palpitations, peripheral edema or shortness of breath. There are no associated agents to hypertension. Risk factors for coronary artery disease include obesity, sedentary lifestyle, dyslipidemia and diabetes mellitus. Past treatments include calcium channel blockers and angiotensin blockers. The current treatment provides moderate improvement. Compliance problems: out of diltiazem for about 1 week. Diabetes She presents for her follow-up diabetic visit. She has type 2 diabetes mellitus. Her disease coursehas been stable. Hypoglycemia symptoms include nervousness/anxiousness. Pertinent negatives for hypoglycemia include no dizziness, headaches, seizures or tremors. Associated symptoms include foot pare sthesias (may be related more to her back). Pertinent negatives for diabetes include no blurred vision, no chest pain (anxiety), no polydipsia, no polyphagia, no polyuria, no visual change, no weakness and no weight loss. There are no hypoglycemic complications. Symptoms are stable. There are no diabetic complications. Risk factors for coronary artery disease include diabetes mellitus, dyslipidemia, hypertension, obesity and sedentary lifestyle. Current diabetic treatment includes oral agent (monotherapy) (GLP 1). She is compliant with treatment all of the time. She has not had a previous visit with a dietitian. She participates in exercise intermittently. An MILKA inhibitor/angiotensin II receptor feli is being taken. She does not see a lapeler.Eye exam is current. SUBJECTIVE: MEDICATIONS: Current Outpatient Medications Medication Instructions aspirin 81 mg, Daily atorvastatin (LIPITOR) 10 mg, Oral, Nightly baclofen (LIORESAL) 10 mg, 3 times daily PRN busPIRone (BUSPAR) 10 mg, Oral, Every 8 hours PRN cholecalciferol (VITAMIN D-3) 50 mcg, Daily cyanocobalamin (VITAMIN B-12) 1,000 mcg, Daily DULoxetine (CYMBALTA) 30 mg, Oral, Daily, Do not crush or chew. ibuprofen (IBU) 800 mg, Every 8 hours PRN insulin pen needle (Droplet Pen [place]) 31G x 5 mm [facility] USE DIRECTED DAILY levothyroxine (SYNTHROID, LEVOXYL) 150 mcg, Oral, Daily before breakfast liraglutide (Victoza) 18 MG/3ML injection INJECT 1.8 MG SUBCUTANEOUSLY ONCE DAILY losartan (COZAAR) 50 mg, Oral, Daily magnesium oxide (MAG-OX) 400 mg, Daily meclizine (ANTIVERT) 25 mg, Every 12 hours PRN metFORMIN (GLUCOPHAGE) 500 mg, Oral, Daily Turmeric (CurcuPlex-95) 500 MG capsule Take by mouth verapamil ER (VERELAN) 180 mg, Oral, Daily ALLERGIES: Allergies Allergen Reactions Celebrex [Celecoxib] Other Pt had swelling in her knees, dizziness, spiked BP and heart rate, chest pain/pressure, and SOB Gabapentin Anxiety Pt states that she felt dizzy and weird not herself. Gabapentin Unknown Hydrochlorothiazide Other Reaction(s): Unknown REVIEW OF SYMPTOMS: Review of Systems Constitutional: Negative for appetite change, chills, fever and weight loss. HENT: Negative for congestion, ear pain and sore throat. Eyes: Negative for blurred vision, pain, discharge, redness and visual disturbance. Respiratory: Negative for cough, shortness of breath and wheezing. Cardiovascular: Negative for chest pain (anxiety), palpitations, orthopnea and leg swelling. Gastrointestinal: Negative for abdominal pain, blood in stool, constipation, diarrhea, nausea and vomiting. Genitourinary: Negative for difficulty urinating, dysuria and frequency. Musculoskeletal: Positive for arthralgias and back pain. Negative for joint swelling, myalgias and neck pain. Skin: Negative for rash and wound. Neurological: Negative for dizziness, tremors, seizures, syncope, weakness and headaches. Psychiatric/Behavioral: Negative for behavioral problems, self-injury and suicidal ideas. The patient is nervous/anxious. Hematological: Does not bruise/bleed easily. Endocrine: Negative for polydipsia, polyphagia and polyuria. Allergic/Immunologic: Negative for environmental allergies and food allergies. 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 OBJECTIVE: Visit Vitals BP (!) 128/100 (BP Location: Left arm, Patient Position: Sitting, BP Cuff Size: Large adult long) Pulse 71 Temp 98 F (Temporal) Resp 19 Ht 5' 3 Wt 272 lb 3.2 oz SpO2 98% BMI 48.22 kg/m Smoking Status Never BSA 2.34 m Physical Exam Vitals and nursing note reviewed. Constitutional: General: She is not in acute distress. Appearance: Normal appearance. HENT: Head: Normocephalic and atraumatic. Right Ear: External ear normal. Left Ear: External ear normal. Nose: Nose normal. Mouth/Throat: Mouth: Mucous membranes are moist. Eyes: Extraocular Movements: Extraocular movements intact. Conjunctiva/sclera: Conjunctivae normal. Neck: Vascular: No carotid bruit. Cardiovascular: Rate and Rhythm: Normal rate and regular rhythm. Pulses: Normal pulses. Heart sounds: Normal heart sounds. Pulmonary: Effort: Pulmonary effort is normal. Breath sounds: Normal breath sounds. No wheezing or rales. Abdominal: General: Bowel sounds are normal. There is no distension. Palpations: Abdomen is soft. There is no mass. Tenderness: There is no abdominal tenderness. Musculoskeletal: General: Normal range of motion. Cervical back: Normal range of motion and neck supple. Right lower leg: No edema. Left lower leg: No edema. Skin: General: Skin is warm and dry. Capillary Refill: Capillary refill takes 2 to 3 seconds. Findings: No rash. Neurological: General: No focal deficit present. Mental Status: She is alert and oriented to person, place, and time. Psychiatric: Mood and Affect: Mood normal. Behavior: Behavior normal. Thought Content: Thought content normal. Judgment: Judgment normal. ASSESSMENT AND PLAN: Follow up in about 4 weeks (around 04/06/2024) for Recheck. Problem List Items Addressed This Visit Type 2 diabetes mellitus without complication, without long-term current use of insulin ([facility]) Check blood sugars daily, notify if <70 or >200. Take medications (pills or insulin) as directed. Monitor for s/s of hypoglycemia (sweaty, dizziness, nausea, vomiting, or shakiness). Watch for increase in thirst, urination, or appetite. Inspect feet frequently monitoring for open wounds , andalso recommend yearly eye exam. Pt should attempt to remain as physically active as chronic conditions allow, as well as trying to follow a diet low in carbohydrates, and simple sugars. A1c has good, but weight loss has stalled out, check A1c, consider changing injectables to possiblemounjaro Relevant Medications metFORMIN (Glucophage) 500 MG tablet liraglutide (Victoza) 18 MG/3ML injection Other Relevant Orders Comprehensive metabolic panel Hemoglobin A1c Obesity At max dose on victoza Vitamin D deficiency Cont supplement Tachycardia Restart cardizem Relevant Medications verapamil ER (Verelan) 180 MG 24 hr capsule Panic attack (CMS/HCC) Stop sertaline, trial duloxetine Take medication only [...] if these occur. Fu in 4 weeks Relevant Medications DULoxetine (Cymbalta) [address] capsule busPIRone (Buspar) 10 MG tablet Hypothyroidism (acquired) (CMS/HCC) Relevant Medications levothyroxine (Synthroid, Levoxyl) 150 MCG tablet Primary hypertension ([facility]) - Primary Restart cardizem and keep losartan as well Please check blood pressure daily and record DASH diet Limit caffeine Take medication as directed Contact office if chest pain, pressure, dizziness, shortness of breath, swelling legs Recommend slow position changes Relevant Medications losartan (Cozaar) 50 MG tablet Other Relevant Orders Comprehensive metabolic panel Mixed hyperlipidemia ([facility]) Relevant Medications atorvastatin (Lipitor) 10 MG tablet Encounter for screening mammogram for malignant neoplasm of breast Relevant Orders Bilateral screening mammogram Arthritis of both knees Cont NSAID, check xrays and go from there Relevant Orders XR knee 3 views right XR knee 3 views left Fibromyalgia Will start duloxetine at 30mg daily Fu in 4 weeks Relevant Medications DULoxetine (Cymbalta) [address] capsule documented in this encounterCooper County Memorial [id number] Instructions* Patient Instructions* Allison Mendez NP - 03/09/2024 9:20 AM EDT Stop sertraline, start duloxetine fu in 4 weeks This may help chronic pain as well Xrays, mammogram, labs Continue with pain mgmt for low back symptoms documented in this encounterCooper County Memorial [id number] History of Present illness Narrative* Martina Lyn, PT - 01/25/2024 2:00 PM EDT Physical Therapy Evaluation Visit Patient Name: Denisha Maldonado Today's Date: 01/25/2024 Encounter Diagnoses Name Primary? Radiculopathy, lumbar region Yes Visit number: 1 Timed Code Treatment Minutes: 48 minutes Total Treatment Time: 58 minutes Time In: 1353 Time Out: 1455 History: Pt states since first in 2006 she has been having pain in back, 3 in total and last in 2013. States recently had an RFA both sides and believes L4 to S1. Pt states pain seems worsefollowing procedure. Pt states pain seems to be more than just the spondylosis she has been diagnosed with. Pt is worse with standing, walking, sitting and laying down. Precautions: [employer]; mini CVA; bleeding disorder Subjective: low back, left buttock and down thigh; pain stops at left knee Pain: 07/18 Objective: PT Evaluation (01/25/2024) LUMBAR SPINE AROM: full flexion without increase pain, full extension without increase pain, bilateral SB WFL with contralateral pain noted both end ranges, left LB pain at end range right rotation. 38 degrees right hip IR, 18 degrees left hip IR Joint play: limited mobility noted upper lumbar region Strength: right hip 4/5, left hip 4 to 4+/5; 4+/5 bilateral quads and ankle DF; core strength if poor Muscle length: quad length with heel to buttock: left touching, right 3 inches from touching; SLR: right 73 degrees, left 80 degrees Palpation: Moderates tenderness bilateral lower lumbar paraspinals; moderate tenderness upper lumbar with central PA pressure Special Test: left posterior innominate rotation Neurological: Reflexes: 2+ bilateral patella Myotomes: negative Dermatomes: negative bilateral Special Test: negative slump and clonus Treatment: Education: HEP education with demonstration, Educated on Eval Findings and POC Manual Therapy: Passive ROM, Joint mobilization, Soft Tissue Mobilization, Myofascial Release, Muscle Energy Technique, Neural Mobilization, Myofascial Cupping, Dry Needling, IASTM, and Scar mobilization as needed. Therapeutic Exercise: (24 minutes) Strength, Endurance, Flexibility, ROM, HEP, Neural Mobilization,Power, and Core Stability as needed. Pt instructed in home program this date. Verbal cues to avoid pain during ex. Discussed progression to core strengthening ex as pain allows for improved lumbar stability. Therapeutic Activity: Exercises to improve dynamic activities, functional tasks, functional mobility to return to prior activity level as needed. Neuromuscular re-education: Balance Training, Muscle Facilitation, Dynamic Stability, Core Stabilization, and Blood Flow Restriction Training (BFRT) as needed. Modalities: (10 minutes) Heat, Ice, Electrical Stimulation, Ultrasound, Lumbar Mechanical Traction as needed. CP to lumbar in sitting after therapy. Assessment: Pt is 38 y/o female with complaints of low back and left LE pain. Pt presents with decreased muscle flexibility right LE, limited left hip IR ROM, and decreased pelvic alignment. Pt will benefit from PT to address above deficits and to improve core and LE strength. Outcome Measure: Back Index: 26/50 Rehab Diagnosis: low back pain, left LE pain, difficulty walking Short Term Goal: To be met in 2 weeks Goal 1: Pt to be instructed in home exercise program. Nursing Home Goals: To be met in 10 weeks Goal 1: Pt to report independence and compliance with home program. Goal 2: Pt to have full trunk ROM without complaints of increase pain at end ranges to assist with functional tasks. Goal 3: Pt to report pain no greater than 1-2/10 with function tasks, ADL's, and work related activities. Goal 4: Pt to score no greater than 14/50 on Back Index indicating improved QOL. Goal 5: Pt to achieve 30 degrees of left hip IR ROM to assist with proper mobility. Pt will benefit from skilled PT for 2-3x/week from 01/25/2024 to 04/04/2024 to address the above impairments. I hereby deem this POC medically necessary. Please sign below. Date: documented in this encounterCooper County Memorial [id number] NoteHNO ID: [id number] Author: DINO CAREY LGC Service: ? Author Type: Genetic Counselor [...] be sent to her home address. Dino Carey MS, [facility] Licensed Genetic CounselorBarn[facility] Hospital04-[facility]24 History of Present illness Narrative* Dino Carey LGC - 08/31/2023 9:45 AM EDT Denisha's son ( ) is followed in Genetics and will be undergoing testing which includes parental samples for segregation analysis; a separate report will not be generated. Denisha has agreed to provide a sample for this testing and an order has been placed for a cheek swab kit to be sent to her home address. Dino Carey MS, [facility] Licensed Genetic Counselor documented in this encounterGal[facility]10-[facility]23 NoteHNO ID: [id number] Author: Jennifer Dewitt MD Service: ? Author Type: Physician Type: Progress Notes Filed: 02/17/2023 10:02 AM Note Text: Rheumatology Clinic Date of Service: 02/17/2023 Patient: Denisha Maldonado Medical Record: [id number] Last [facility] History of Present Illness Denisha Maldonado is a 37 year old White female [...] time each day a (more content not included)...[facility] Instructions* Patient Instructions* Jennifer Dewitt MD - 02/17/2023 9:27 AM EDT This condition is associated with abnormal central processing of various peripheral stimuli including pain. Fibromyalgia is a musculoskeletal manifestation of this condition. It is one of the most frequent generalized pain disorders with poorly understood neurobiological mechanisms. Despite extensive research, the exact cause of fibromyalgia remains unknown and thus, there is no disease modifyingtherapy available for this condition that can favorably alter the natural history of this disease. Fibromyalgia is a very common condition and is a diagnosis of inclusion rather than that of exclusion, i.e. it can co-exist with other concomitant rheumatologic and/or non-rheumatologic conditions. Ameta-analysis from the [facility] in [place] suggested that concomitant fibromyalgia is common in patients with inflammatory arthritis, which can have a major impact on assessing diseaseseverity and treatment decisions. The overall prevalence of fibromyalgia was 21% among patients with rheumatoid arthritis and 13% in ankylosing spondylitis, whereas the condition is reported in approximately 1% to 5% of the general population, according to Wyatt Luke, [facility], PhD, of the [facility] in [place], and colleagues. The cornerstones of therapy for [...] will result in less than an optimal responseto treatment. Medications sometimes used to treat fibromyalgia include those to help correct sleep disturbances and depression such as low dose antidepressants (Cymbalta or Savella) or non-habit forming sedatives and mild analgesics such as Tylenol. Lyrica is another drug that has been FDA approvedfor treatment of fibromyalgia. Narcotics have been found [...] outlines the management guidelines of fibromyalgia: (1) https://www.rheumatology.org/I-Am-A/Patient-Caregiver/Diseases-Conditions/Fibrom yalgia (2) [email or web address] documented in this encounterGalion Hospital10-10-2023 History of Present illness Narrative* Jennifer Dewitt MD - 02/17/2023 8:49 AM EDT Images from the original note were not included. Rheumatology Clinic Date of Service: 02/17/2023 Patient: Deinsha Maldonado Medical Record: [id number] Last Rheumatology visit: None [facility] History of Present Illness Denisha Maldonado is a 37 year old White female [...] with time frame (memories 2wks vs. 2 months),forgets where she is driving. No rashes No [...] population = 50. Five points is a clinicallymeaningful difference.) 02/13/2023 Physical T-Score 34.9 Mental T-Score [...] dogs walk on her legs. Because of this,inflammatory markers were checked. ESR was found to [...] specific and can be related to many etiologiesincluding immunoglobulins, anemia, BMI, smoking, malignancy, etc. We [...] mg QD), Duloxetine (start at 30 mg QDx1 week, titrate up to 60 mg QD), [...] which included preparing to see the patient, [id number] patient care, completing clinical documentation, obtaining and/or reviewing separately obtained history, performing a medically appropriate examination, and counseling and educating the patient/family/caregiver. Jennifer Dewitt MD Rheumatology Date: February 17, 2023 Time: 8:50 AM documented in this encounterGalion HospitalEvaluchristiana hospital note* Diagnosis Fibromyalgia- Primary Mylagia and myositis, unspecified Sedimentation rate elevation Elevated sedimentation rate Fatigue, unspecified type Vitamin D deficiency Unspecified vitamin D deficiency documented in this encounter [facility]* Diagnosis Family history of autism- Primary Family history of psychiatric condition documented in this encounter [facility] HospitalEval[facility]* Diagnosis Radiculopathy, lumbar region- Primary Thoracic or lumbosacral neuritis or radiculitis, unspecified documented in this encounter [facility] HealthcareEvaluation note* Diagnosis Radiculopathy, lumbar region- Primary Thoracic or lumbosacral neuritis or radiculitis, unspecified documented in this encounter [facility] HealthcareEvaluation note* Diagnosis Radiculopathy, lumbar region- Primary Thoracic or lumbosacral neuritis or radiculitis, unspecified documented in this encounter [facility] HealthcareEvaluation note* Diagnosis Radiculopathy, lumbar region- Primary Thoracic or lumbosacral neuritis or radiculitis, unspecified documented in this encounter [facility] HealthcareEvaluation note* Diagnosis Type 2 diabetes mellitus without complication, without long-term current use of insulin ([facility])- Primary Herpes zoster without complication Class 3 severe obesity due to excess calories without serious comorbidity with body mass index (BMI) of 45.0 to 49.9 in adult ([facility]) Chronic bilateral thoracic back pain- Primary Hypothyroidism (acquired) ([facility]) Unspecified hypothyroidism Type 2 diabetes mellitus without complication, without long-term current use of insulin ([facility]) Class 3 severe obesity due to excess calories without serious comorbidity with body mass index (BMI) of 45.0 to 49.9 in adult ([facility]) Lateral epicondylitis of left elbow Lateral epicondylitis of left elbow- Primary Primary hypertension ([facility]) Unspecified essential hypertension Hypothyroidism (acquired) ([facility]) Unspecified hypothyroidism Class 3 severe obesity due to excess calories without serious comorbidity with body mass index (BMI) of 45.0 to 49.9 in adult ([facility]) Type 2 diabetes mellitus without complication, without long-term current use of insulin (CMS/HCC) Vitamin D deficiency Type 2 diabetes mellitus without complication, without long-term current use of insulin (CMS/HCC)- Primary Malignant neoplasm of endometrium (CMS/HCC) Malignant neoplasm of corpus uteri, except isthmus Mixed hyperlipidemia (CMS/HCC) Mixed hyperlipidemia Panic attack (CMS/HCC) Panic disorder without agoraphobia Hypothyroidism (acquired) (CMS/HCC) Unspecified hypothyroidism Primary hypertension (CMS/HCC) Unspecified essential hypertension Elevated alkaline phosphatase level Radiculopathy, lumbar region- Primary Thoracic or lumbosacral neuritis or radiculitis, unspecified documented in this encounter [facility]* Diagnosis Type 2 diabetes mellitus without complication, without long-term current use of insulin ([facility])- Primary Herpes zoster without complication Class 3 severe obesity due to excess calories without serious comorbidity with body mass index (BMI) of 45.0 to 49.9 in adult ([facility]) Chronic bilateral thoracic back pain- Primary Hypothyroidism (acquired) ([facility]) Unspecified hypothyroidism Type 2 diabetes mellitus without complication, without long-term current use of insulin ([facility]) Class 3 severe obesity due to excess calories without serious comorbidity with body mass index (BMI) of 45.0 to 49.9 in adult ([facility]) Lateral epicondylitis of left elbow Lateral epicondylitis of left elbow- Primary Primary hypertension (CMS/HCC) Unspecified essential hypertension Hypothyroidism (acquired) ([facility]) Unspecified hypothyroidism Class 3 severe obesity due to excess calories without serious comorbidity with body mass index (BMI) of 45.0 to 49.9 in adult ([facility]) Type 2 diabetes mellitus without complication, without long-term current use of insulin (CMS/HCC) Vitamin D deficiency Type 2 diabetes mellitus without complication, without long-term current use of insulin ([facility])- Primary Malignant neoplasm of endometrium (CMS/HCC) Malignant neoplasm of corpus uteri, except isthmus Mixed hyperlipidemia (CMS/HCC) Mixed hyperlipidemia Panic attack (CMS/HCC) Panic disorder without agoraphobia Hypothyroidism (acquired) (CMS/HCC) Unspecified hypothyroidism Primary hypertension (CMS/HCC) Unspecified essential hypertension Elevated alkaline phosphatase level Radiculopathy, lumbar region- Primary Thoracic or lumbosacral neuritis or radiculitis, unspecified documented in this encounter [facility] HealthcareEvaluation note* Diagnosis Type 2 diabetes mellitus without complication, without long-term current use of insulin ([facility])- Primary Herpes zoster without complication Class 3 severe obesity due to excess calories without serious comorbidity with body mass index (BMI) of 45.0 to 49.9 in adult ([facility] Chronic bilateral thoracic back pain- Primary Hypothyroidism (acquired) ([facility]) Unspecified hypothyroidism Type 2 diabetes mellitus without complication, without long-term current use of insulin ([facility]) Class 3 severe obesity due to excess calories without serious comorbidity with body mass index (BMI) of 45.0 to 49.9 in adult ([facility]) Lateral epicondylitis of left elbow Lateral epicondylitis of left elbow- Primary Primary hypertension ([facility]) Unspecified essential hypertension Hypothyroidism (acquired) ([facility]) Unspecified hypothyroidism Class 3 severe obesity due to excess calories without serious comorbidity with body mass index (BMI) of 45.0 to 49.9 in adult ([facility]) Type 2 diabetes mellitus without complication, without long-term current use of insulin ([facility]) Vitamin D deficiency Type 2 diabetes mellitus without complication, without long-term current use of insulin ([facility] Primary Malignant neoplasm of endometrium ([facility]) Malignant neoplasm of corpus uteri, except isthmus Mixed hyperlipidemia ([facility]) Mixed hyperlipidemia Panic attack ([facility]) Panic disorder without agoraphobia Hypothyroidism (acquired) ([facility]) Unspecified hypothyroidism Primary hypertension ([facility]) Unspecified essential hypertension Elevated alkaline phosphatase level Tachycardia Unspecified tachycardia documented in this encounter [facility] HealthcareEvaluation note* Diagnosis Type 2 diabetes mellitus without complication, without long-term current use of insulin ([facility])- Primary Herpes zoster without complication Class 3 severe obesity due to excess calories without serious comorbidity with body mass index (BMI) of 45.0 to 49.9 in adult ([facility] Chronic bilateral thoracic back pain- Primary Hypothyroidism (acquired) ([facility]) Unspecified hypothyroidism Type 2 diabetes mellitus without complication, without long-term current use of insulin ([facility]) Class 3 severe obesity due to excess calories without serious comorbidity with body mass index (BMI) of 45.0 to 49.9 in adult ([facility]) Lateral epicondylitis of left elbow Lateral epicondylitis of left elbow- Primary Primary hypertension ([facility] [facility] [place] Unspecified essential hypertension Hypothyroidism (acquired) ([facility] [place] Unspecified hypothyroidism Class 3 severe obesity due to excess calories without serious comorbidity with body mass index (BMI) of 45.0 to 49.9 in adult ([facility] [place]) Type 2 diabetes mellitus without complication, without long-term current use of insulin ([facility] [place]) Vitamin D deficiency Type 2 diabetes mellitus without complication, without long-term current use of insulin ([facility] [place] Primary Malignant neoplasm of endometrium ([facility] [place]) Malignant neoplasm of corpus uteri, except isthmus Mixed hyperlipidemia ([facility] [place] Mixed hyperlipidemia Panic attack ([facility] [place]) Panic disorder without agoraphobia Hypothyroidism (acquired) ([facility] [place] Unspecified hypothyroidism Primary hypertension ([facility] [place]) Unspecified essential hypertension Elevated alkaline phosphatase level Primary hypertension ([facility] [place] Primary Unspecified essential hypertension Tachycardia Unspecified tachycardia Type 2 diabetes mellitus without complication, without long-term current use of insulin ([facility] [place] Vitamin D deficiency Hypothyroidism (acquired) ([facility] [place] Unspecified hypothyroidism Encounter for screening mammogram for malignant neoplasm of breast Mixed hyperlipidemia ([facility] [place]) Mixed hyperlipidemia Panic attack ([facility] [place]) Panic disorder without agoraphobia Arthritis of both knees Class 3 severe obesity due to excess calories without serious comorbidity with body mass index (BMI) of 45.0 to 49.9 in adult ([facility] [place]) Fibromyalgia Unspecified myalgia and myositis documented in this encounter [facility] HealthcareEvaluation note* Diagnosis Type 2 diabetes mellitus without complication, without long-term current use of insulin ([facility] [place] Primary Herpes zoster without complication Class 3 severe obesity due to excess calories without serious comorbidity with body mass index (BMI) of 45.0 to 49.9 in adult ([facility] [place]) Chronic bilateral thoracic back pain- Primary Hypothyroidism (acquired) ([facility] [place]) Unspecified hypothyroidism Type 2 diabetes mellitus without complication, without long-term current use of insulin ([facility] [place]) Class 3 severe obesity due to excess calories without serious comorbidity with body mass index (BMI) of 45.0 to 49.9 in adult ([facility] [place]) Lateral epicondylitis of left elbow Lateral epicondylitis of left elbow- Primary Primary hypertension ([facility] [place] Unspecified essential hypertension Hypothyroidism (acquired) ([facility] [place] Unspecified hypothyroidism Class 3 severe obesity due to excess calories without serious comorbidity with body mass index (BMI) of 45.0 to 49.9 in adult ([facility] [place]) Type 2 diabetes mellitus without complication, without long-term current use of insulin ([facility] [place] Vitamin D deficiency Type 2 diabetes mellitus without complication, without long-term current use of insulin ([facility] [place] Primary Malignant neoplasm of endometrium ([facility] [place]) Malignant neoplasm of corpus uteri, except isthmus Mixed hyperlipidemia ([facility] [place] Mixed hyperlipidemia Panic attack ([facility] [place]) Panic disorder without agoraphobia Hypothyroidism (acquired) ([facility] [place] Unspecified hypothyroidism Primary hypertension ([facility] [place]) Unspecified essential hypertension Elevated alkaline phosphatase level Primary hypertension ([facility] [place] Primary Unspecified essential hypertension Tachycardia Unspecified tachycardia Type 2 diabetes mellitus without complication, without long-term current use of insulin ([facility] [place] Vitamin D deficiency Hypothyroidism (acquired) ([facility] [place] Unspecified hypothyroidism Encounter for screening mammogram for malignant neoplasm of breast Mixed hyperlipidemia ([facility] [place]) Mixed hyperlipidemia Panic attack ([facility] [place]) Panic disorder without agoraphobia Arthritis of both knees Class 3 severe obesity due to excess calories without serious comorbidity with body mass index (BMI) of 45.0 to 49.9 in adult ([facility] [place]) Fibromyalgia Unspecified myalgia and myositis Type 2 diabetes mellitus without complication, without long-term current use of insulin ([facility] [place] documented in this encounter [facility] HealthcareEvaluation note* Diagnosis Type 2 diabetes mellitus without complication, without long-term current use of insulin ([facility] [place] Primary Herpes zoster without complication Class 3 severe obesity due to excess calories without serious comorbidity with body mass index (BMI) of 45.0 to 49.9 in adult ([facility] [place]) Chronic bilateral thoracic back pain- Primary Hypothyroidism (acquired) ([facility] [place] Unspecified hypothyroidism Type 2 diabetes mellitus without complication, without long-term current use of insulin ([facility] [place]) Class 3 severe obesity due to excess calories without serious comorbidity with body mass index (BMI) of 45.0 to 49.9 in adult ([facility] [place]) Lateral epicondylitis of left elbow Lateral epicondylitis of left elbow- Primary Primary hypertension ([facility] [place] Unspecified essential hypertension Hypothyroidism (acquired) ([facility] [place] Unspecified hypothyroidism Class 3 severe obesity due to excess calories without serious comorbidity with body mass index (BMI) of 45.0 to 49.9 in adult ([facility] [place]) Type 2 diabetes mellitus without complication, without long-term current use of insulin ([facility] [place] Vitamin D deficiency Type 2 diabetes mellitus without complication, without long-term current use of insulin ([facility] [place] Primary Malignant neoplasm of endometrium ([facility] [place]) Malignant neoplasm of corpus uteri, except isthmus Mixed hyperlipidemia ([facility] [place] Mixed hyperlipidemia Panic attack ([facility] [place]) Panic disorder without agoraphobia Hypothyroidism (acquired) ([facility] [place] Unspecified hypothyroidism Primary hypertension ([facility] [place]) Unspecified essential hypertension Elevated alkaline phosphatase level Primary hypertension ([facility] [place] Primary Unspecified essential hypertension Tachycardia Unspecified tachycardia Type 2 diabetes mellitus without complication, without long-term current use of insulin ([facility] [place] Vitamin D deficiency Hypothyroidism (acquired) ([facility] [place] Unspecified hypothyroidism Encounter for screening mammogram for malignant neoplasm of breast Mixed hyperlipidemia ([facility] [place]) Mixed hyperlipidemia Panic attack ([facility] [place]) Panic disorder without agoraphobia Arthritis of both knees Class 3 severe obesity due to excess calories without serious comorbidity with body mass index (BMI) of 45.0 to 49.9 in adult ([facility] [place]) Fibromyalgia Unspecified myalgia and myositis Tachycardia Unspecified tachycardia documented in this encounter [facility] HealthcareEvaluation note* Diagnosis Type 2 diabetes mellitus without complication, without long-term current use of insulin ([facility] [place] Primary Herpes zoster without complication Class 3 severe obesity due to excess calories without serious comorbidity with body mass index (BMI) of 45.0 to 49.9 in adult ([facility] [place]) Chronic bilateral thoracic back pain- Primary Hypothyroidism (acquired) ([facility] [place] Unspecified hypothyroidism Type 2 diabetes mellitus without complication, without long-term current use of insulin ([facility] [place]) Class 3 severe obesity due to excess calories without serious comorbidity with body mass index (BMI) of 45.0 to 49.9 in adult ([facility] [place]) Lateral epicondylitis of left elbow Lateral epicondylitis of left elbow- Primary Primary hypertension ([facility] [place] Unspecified essential hypertension Hypothyroidism (acquired) ([facility] [place] Unspecified hypothyroidism Class 3 severe obesity due to excess calories without serious comorbidity with body mass index (BMI) of 45.0 to 49.9 in adult ([facility] [place]) Type 2 diabetes mellitus without complication, without long-term current use of insulin ([facility] [place] Vitamin D deficiency Type 2 diabetes mellitus without complication, without long-term current use of insulin ([facility] [place] Primary Malignant neoplasm of endometrium ([facility] [place]) Malignant neoplasm of corpus uteri, except isthmus Mixed hyperlipidemia ([facility] [place] Mixed hyperlipidemia Panic attack ([facility]/HCC) Panic disorder without agoraphobia Hypothyroidism (acquired) ([facility] [place] Unspecified hypothyroidism Primary hypertension ([facility] [place] Unspecified essential hypertension Elevated alkaline phosphatase level Primary hypertension ([facility] [place] Primary Unspecified essential hypertension Tachycardia Unspecified tachycardia Type 2 diabetes mellitus without complication, without long-term current use of insulin ([facility] [place] Vitamin D deficiency Hypothyroidism (acquired) ([facility] [place] Unspecified hypothyroidism Encounter for screening mammogram for malignant neoplasm of breast Mixed hyperlipidemia ([facility] [place]) Mixed hyperlipidemia Panic attack ([facility] [place]) Panic disorder without agoraphobia Arthritis of both knees Class 3 severe obesity due to excess calories without serious comorbidity with body mass index (BMI) of 45.0 to 49.9 in adult ([facility] [place]) Fibromyalgia Unspecified myalgia and myositis Radiculopathy, lumbar region- Primary Thoracic or lumbosacral neuritis or radiculitis, unspecified documented in this encounter [facility] HealthcareEvaluation note* Diagnosis Type 2 diabetes mellitus without complication, without long-term current use of insulin ([facility] [place] Primary Herpes zoster without complication Class 3 severe obesity due to excess calories without serious comorbidity with body mass index (BMI) of 45.0 to 49.9 in adult ([facility] [place]) Chronic bilateral thoracic back pain- Primary Hypothyroidism (acquired) ([facility] [place]) Unspecified hypothyroidism Type 2 diabetes mellitus without complication, without long-term current use of insulin ([facility] [place]) Class 3 severe obesity due to excess calories without serious comorbidity with body mass index (BMI) of 45.0 to 49.9 in adult ([facility] [place]) Lateral epicondylitis of left elbow Lateral epicondylitis of left elbow- Primary Primary hypertension ([facility] [place]) Unspecified essential hypertension Hypothyroidism (acquired) ([facility] [place] Unspecified hypothyroidism Class 3 severe obesity due to excess calories without serious comorbidity with body mass index (BMI) of 45.0 to 49.9 in adult ([facility] [place]) Type 2 diabetes mellitus without complication, without long-term current use of insulin ([facility] [place]) Vitamin D deficiency Type 2 diabetes mellitus without complication, without long-term current use of insulin ([facility] [place] Primary Malignant neoplasm of endometrium (CMS/HCC) Malignant neoplasm of corpus uteri, except isthmus Mixed hyperlipidemia (CMS/HCC) Mixed hyperlipidemia Panic attack (CMS/HCC) Panic disorder without agoraphobia Hypothyroidism (acquired) ([facility] [place] Unspecified hypothyroidism Primary hypertension (CMS/HCC) Unspecified essential hypertension Elevated alkaline phosphatase level Primary hypertension (CMS/HCC)- Primary Unspecified essential hypertension Tachycardia Unspecified tachycardia Type 2 diabetes mellitus without complication, without long-term current use of insulin ([facility] [place] Vitamin D deficiency Hypothyroidism (acquired) ([facility] [place]) Unspecified hypothyroidism Encounter for screening mammogram for malignant neoplasm of breast Mixed hyperlipidemia (CMS/HCC) Mixed hyperlipidemia Panic attack ([facility] [place]) Panic disorder without agoraphobia Arthritis of both knees Class 3 severe obesity due to excess calories without serious comorbidity with body mass index (BMI) of 45.0 to 49.9 in adult ([facility] [place]) Fibromyalgia Unspecified myalgia and myositis Right knee pain, unspecified chronicity- Primary Arthritis of right knee Left knee pain, unspecified chronicity Arthritis of left knee documented in this encounter [facility] HealthcareEvaluation note* Diagnosis Type 2 diabetes mellitus without complication, without long-term current use of insulin ([facility] [place] Primary Herpes zoster without complication Class 3 severe obesity due to excess calories without serious comorbidity with body mass index (BMI) of 45.0 to 49.9 in adult ([facility] [place]) Chronic bilateral thoracic back pain- Primary Hypothyroidism (acquired) ([facility] [place]) Unspecified hypothyroidism Type 2 diabetes mellitus without complication, without long-term current use of insulin ([facility] [place]) Class 3 severe obesity due to excess calories without serious comorbidity with body mass index (BMI) of 45.0 to 49.9 in adult ([facility] [place]) Lateral epicondylitis of left elbow Lateral epicondylitis of left elbow- Primary Primary hypertension ([facility] [place]) Unspecified essential hypertension Hypothyroidism (acquired) ([facility] [place]) Unspecified hypothyroidism Class 3 severe obesity due to excess calories without serious comorbidity with body mass index (BMI) of 45.0 to 49.9 in adult ([facility] [place]) Type 2 diabetes mellitus without complication, without long-term current use of insulin ([facility] [place]) Vitamin D deficiency Type 2 diabetes mellitus without complication, without long-term current use of insulin ([facility] [place] Primary Malignant neoplasm of endometrium (CMS/HCC) Malignant neoplasm of corpus uteri, except isthmus Mixed hyperlipidemia (CMS/HCC) Mixed hyperlipidemia Panic attack (CMS/HCC) Panic disorder without agoraphobia Hypothyroidism (acquired) (CMS/HCC) Unspecified hypothyroidism Primary hypertension (CMS/HCC) Unspecified essential hypertension Elevated alkaline phosphatase level Primary hypertension (CMS/HCC)- Primary Unspecified essential hypertension Tachycardia Unspecified tachycardia Type 2 diabetes mellitus without complication, without long-term current use of insulin ([facility] [place]) Vitamin D deficiency Hypothyroidism (acquired) (CMS/HCC) Unspecified hypothyroidism Encounter for screening mammogram for malignant neoplasm of breast Mixed hyperlipidemia (CMS/HCC) Mixed hyperlipidemia Panic attack (CMS/HCC) Panic disorder without agoraphobia Arthritis of both knees Class 3 severe obesity due to excess calories without serious comorbidity with body mass index (BMI) of 45.0 to 49.9 in adult ([facility] [place]) Fibromyalgia Unspecified myalgia and myositis Right knee pain, unspecified chronicity- Primary Arthritis of right knee documented in this encounter [facility] HealthcareEvaluation note* Diagnosis Type 2 diabetes mellitus without complication, without long-term current use of insulin ([facility] [place])- Primary Herpes zoster without complication Class 3 severe obesity due to excess calories without serious comorbidity with body mass index (BMI) of 45.0 to 49.9 in adult ([facility] [place]) Chronic bilateral thoracic back pain- Primary Hypothyroidism (acquired) ([facility] [place]) Unspecified hypothyroidism Type 2 diabetes mellitus without complication, without long-term current use of insulin ([facility] [place]) Class 3 severe obesity due to excess calories without serious comorbidity with body mass index (BMI) of 45.0 to 49.9 in adult ([facility] [place]) Lateral epicondylitis of left elbow Lateral epicondylitis of left elbow- Primary Primary hypertension (CMS/HCC) Unspecified essential hypertension Hypothyroidism (acquired) ([facility]/HCC) Unspecified hypothyroidism Class 3 severe obesity due to excess calories without serious comorbidity with body mass index (BMI) of 45.0 to 49.9 in adult ([facility] [place]) Type 2 diabetes mellitus without complication, without long-term current use of insulin (CMS/HCC) Vitamin D deficiency Type 2 diabetes mellitus without complication, without long-term current use of insulin (CMS/HCC)- Primary Malignant neoplasm of endometrium (CMS/HCC) Malignant neoplasm of corpus uteri, except isthmus Mixed hyperlipidemia (CMS/HCC) Mixed hyperlipidemia Panic attack (CMS/HCC) Panic disorder without agoraphobia Hypothyroidism (acquired) (CMS/HCC) Unspecified hypothyroidism Primary hypertension (CMS/HCC) Unspecified essential hypertension Elevated alkaline phosphatase level Primary hypertension (CMS/HCC)- Primary Unspecified essential hypertension Tachycardia Unspecified tachycardia Type 2 diabetes mellitus without complication, without long-term current use of insulin (CMS/HCC) Vitamin D deficiency Hypothyroidism (acquired) (CMS/HCC) Unspecified hypothyroidism Encounter for screening mammogram for malignant neoplasm of breast Mixed hyperlipidemia (CMS/HCC) Mixed hyperlipidemia Panic attack (CMS/HCC) Panic disorder without agoraphobia Arthritis of both knees Class 3 severe obesity due to excess calories without serious comorbidity with body mass index (BMI) of 45.0 to 49.9 in adult ([facility]/HCC) Fibromyalgia Unspecified myalgia and myositis Mixed hyperlipidemia (CMS/HCC) Mixed hyperlipidemia documented in this encounter [facility] HealthcareEvaluation note* Diagnosis Benign essential hypertension- Primary Essential hypertension, benign BMI 45.0-49.9, adult ([facility]) documented in this encounter [facility] Work Phone: Evaluation note* Diagnosis Type 2 diabetes mellitus without complication, without long-term current use of insulin (CMS/HCC)- Primary Herpes zoster without complication Class 3 severe obesity due to excess calories without serious comorbidity with body mass index (BMI) of 45.0 to 49.9 in adult ([facility] [place]) Chronic bilateral thoracic back pain- Primary Hypothyroidism (acquired) (CMS/HCC) Unspecified hypothyroidism Type 2 diabetes mellitus without complication, without long-term current use of insulin (CMS/HCC) Class 3 severe obesity due to excess calories without serious comorbidity with body mass index (BMI) of 45.0 to 49.9 in adult ([facility]/HCC) Lateral epicondylitis of left elbow Lateral epicondylitis of left elbow- Primary Primary hypertension (CMS/HCC) Unspecified essential hypertension Hypothyroidism (acquired) (CMS/HCC) Unspecified hypothyroidism Class 3 severe obesity due to excess calories without serious comorbidity with body mass index (BMI) of 45.0 to 49.9 in adult ([facility] [place]) Type 2 diabetes mellitus without complication, without long-term current use of insulin (CMS/HCC) Vitamin D deficiency Type 2 diabetes mellitus without complication, without long-term current use of insulin (CMS/HCC)- Primary Malignant neoplasm of endometrium (CMS/HCC) Malignant neoplasm of corpus uteri, except isthmus Mixed hyperlipidemia ([facility] [place]) Mixed hyperlipidemia Panic attack ([facility] [place]) Panic disorder without agoraphobia Hypothyroidism (acquired) ([facility] [place]) Unspecified hypothyroidism Primary hypertension ([facility] [place]) Unspecified essential hypertension Elevated alkaline phosphatase level Primary hypertension ([facility] [place])- Primary Unspecified essential hypertension Tachycardia Unspecified tachycardia Type 2 diabetes mellitus without complication, without long-term current use of insulin ([facility]) Vitamin D deficiency Hypothyroidism (acquired) ([facility] [place]) Unspecified hypothyroidism Encounter for screening mammogram for malignant neoplasm of breast Mixed hyperlipidemia ([facility] [place]) Mixed hyperlipidemia Panic attack ([facility] [place]) Panic disorder without agoraphobia Arthritis of both knees Class 3 severe obesity due to excess calories without serious comorbidity with body mass index (BMI) of 45.0 to 49.9 in adult ([facility] [place] Fibromyalgia Unspecified myalgia and myositis Panic attack ([facility] [place] Primary Panic disorder without agoraphobia Primary hypertension ([facility] [place]) Unspecified essential hypertension Fibromyalgia Unspecified myalgia and myositis Class 3 severe obesity due to excess calories without serious comorbidity with body mass index (BMI) of 45.0 to 49.9 in adult ([facility] [place]) BMI 45.0-49.9, adult ([facility] [place] Chronic otitis externa of left ear, unspecified type Vertigo Dizziness and giddiness Difficulty walking Difficulty in walking documented in this encounter [facility] HealthcareEvaluation note* Diagnosis Radiculopathy, lumbar region- Primary Thoracic or lumbosacral neuritis or radiculitis, unspecified documented in this encounter [facility] HealthcareEvaluation note* Diagnosis Type 2 diabetes mellitus without complication, without long-term current use of insulin ([facility] [place])- Primary Herpes zoster without complication Class 3 severe obesity due to excess calories without serious comorbidity with body mass index (BMI) of 45.0 to 49.9 in adult ([facility] [place]) Chronic bilateral thoracic back pain- Primary Hypothyroidism (acquired) ([facility] [place]) Unspecified hypothyroidism Type 2 diabetes mellitus without complication, without long-term current use of insulin ([facility] [place]) Class 3 severe obesity due to excess calories without serious comorbidity with body mass index (BMI) of 45.0 to 49.9 in adult ([facility] [place]) Lateral epicondylitis of left elbow Lateral epicondylitis of left elbow- Primary Primary hypertension ([facility] [place]) Unspecified essential hypertension Hypothyroidism (acquired) ([facility] [place]) Unspecified hypothyroidism Class 3 severe obesity due to excess calories without serious comorbidity with body mass index (BMI) of 45.0 to 49.9 in adult ([facility] [place]) Type 2 diabetes mellitus without complication, without long-term current use of insulin ([facility] [place]) Vitamin D deficiency Type 2 diabetes mellitus without complication, without long-term current use of insulin ([facility] [place])- Primary Malignant neoplasm of endometrium ([facility] [place]) Malignant neoplasm of corpus uteri, except isthmus Mixed hyperlipidemia ([facility] [place]) Mixed hyperlipidemia Panic attack ([facility] [place]) Panic disorder without agoraphobia Hypothyroidism (acquired) ([facility] [place] Unspecified hypothyroidism Primary hypertension ([facility] [place]) Unspecified essential hypertension Elevated alkaline phosphatase level Primary hypertension ([facility] [place])- Primary Unspecified essential hypertension Tachycardia Unspecified tachycardia Type 2 diabetes mellitus without complication, without long-term current use of insulin ([facility] [place]) Vitamin D deficiency Hypothyroidism (acquired) ([facility] [place]) Unspecified hypothyroidism Encounter for screening mammogram for malignant neoplasm of breast Mixed hyperlipidemia ([facility] [place]) Mixed hyperlipidemia Panic attack ([facility] [place]) Panic disorder without agoraphobia Arthritis of both knees Class 3 severe obesity due to excess calories without serious comorbidity with body mass index (BMI) of 45.0 to 49.9 in adult ([facility] [place] Fibromyalgia Unspecified myalgia and myositis Panic attack ([facility] [place])- Primary Panic disorder without agoraphobia Primary hypertension ([facility] [place]) Unspecified essential hypertension Fibromyalgia Unspecified myalgia and myositis Class 3 severe obesity due to excess calories without serious comorbidity with body mass index (BMI) of 45.0 to 49.9 in adult ([facility] [place]) BMI 45.0-49.9, adult ([facility] [place]) Chronic otitis externa of left ear, unspecified type Vertigo Dizziness and giddiness Difficulty walking Difficulty in walking Type 2 diabetes mellitus without complication, without long-term current use of insulin ([facility] [place]) Vitamin D deficiency documented in this encounter [facility] HealthcareEvaluation note* Diagnosis Type 2 diabetes mellitus without complication, without long-term current use of insulin ([facility] [place]) documented in this encounter [facility] HealthcareEvaluation note* Diagnosis Radiculopathy, lumbar region- Primary Thoracic or lumbosacral neuritis or radiculitis, unspecified documented in this encounter [facility] HealthcareEvaluation note* Diagnosis Radiculopathy, lumbar region- Primary Thoracic or lumbosacral neuritis or radiculitis, unspecified documented in this encounter [facility] HealthcareEvaluation note* Diagnosis Type 2 diabetes mellitus without complication, without long-term current use of insulin ([facility] [place])- Primary Herpes zoster without complication Class 3 severe obesity due to excess calories without serious comorbidity with body mass index (BMI) of 45.0 to 49.9 in adult ([facility] [place]) Chronic bilateral thoracic back pain- Primary Hypothyroidism (acquired) ([facility] [place]) Unspecified hypothyroidism Type 2 diabetes mellitus without complication, without long-term current use of insulin ([facility] [place]) Class 3 severe obesity due to excess calories without serious comorbidity with body mass index (BMI) of 45.0 to 49.9 in adult ([facility] [place]) Lateral epicondylitis of left elbow Lateral epicondylitis of left elbow- Primary Primary hypertension ([facility] [place]) Unspecified essential hypertension Hypothyroidism (acquired) ([facility] [place]) Unspecified hypothyroidism Class 3 severe obesity due to excess calories without serious comorbidity with body mass index (BMI) of 45.0 to 49.9 in adult ([facility] [place]) Type 2 diabetes mellitus without complication, without long-term current use of insulin ([facility] [place]) Vitamin D deficiency Type 2 diabetes mellitus without complication, without long-term current use of insulin ([facility] [place])- Primary Malignant neoplasm of endometrium ([facility] [place]) Malignant neoplasm of corpus uteri, except isthmus Mixed hyperlipidemia ([facility] [place] Mixed hyperlipidemia Panic attack ([facility] [place]) Panic disorder without agoraphobia Hypothyroidism (acquired) ([facility] [place] Unspecified hypothyroidism Primary hypertension ([facility] [place]) Unspecified essential hypertension Elevated alkaline phosphatase level Primary hypertension ([facility] [place])- Primary Unspecified essential hypertension Tachycardia Unspecified tachycardia Type 2 diabetes mellitus without complication, without long-term current use of insulin ([facility] [place]) Vitamin D deficiency Hypothyroidism (acquired) ([facility] [place]) Unspecified hypothyroidism Encounter for screening mammogram for malignant neoplasm of breast Mixed hyperlipidemia ([facility] [place]) Mixed hyperlipidemia Panic attack ([facility] [place]) Panic disorder without agoraphobia Arthritis of both knees Class 3 severe obesity due to excess calories without serious comorbidity with body mass index (BMI) of 45.0 to 49.9 in adult ([facility] [place]) Fibromyalgia Unspecified myalgia and myositis Panic attack ([facility] [place])- Primary Panic disorder without agoraphobia Primary hypertension ([facility] [place]) Unspecified essential hypertension Fibromyalgia Unspecified myalgia and myositis Class 3 severe obesity due to excess calories without serious comorbidity with body mass index (BMI) of 45.0 to 49.9 in adult ([facility] [place]) BMI 45.0-49.9, adult ([facility] [place]) Chronic otitis externa of left ear, unspecified type Vertigo Dizziness and giddiness Difficulty walking Difficulty in walking Primary hypertension ([facility] [place]) Unspecified essential hypertension Type 2 diabetes mellitus without complication, without long-term current use of insulin ([facility] [place]) documented in this encounter [facility] HealthcareEvaluation note* Diagnosis Type 2 diabetes mellitus without complication, without long-term current use of insulin ([facility] [place])- Primary Herpes zoster without complication Class 3 severe obesity due to excess calories without serious comorbidity with body mass index (BMI) of 45.0 to 49.9 in adult ([facility] [place]) Chronic bilateral thoracic back pain- Primary Hypothyroidism (acquired) ([facility] [place]) Unspecified hypothyroidism Type 2 diabetes mellitus without complication, without long-term current use of insulin ([facility] [place]) Class 3 severe obesity due to excess calories without serious comorbidity with body mass index (BMI) of 45.0 to 49.9 in adult ([facility] [place]) Lateral epicondylitis of left elbow Lateral epicondylitis of left elbow- Primary Primary hypertension ([facility] [place]) Unspecified essential hypertension Hypothyroidism (acquired) ([facility] [place]) Unspecified hypothyroidism Class 3 severe obesity due to excess calories without serious comorbidity with body mass index (BMI) of 45.0 to 49.9 in adult ([facility] [place]) Type 2 diabetes mellitus without complication, without long-term current use of insulin ([facility] [place]) Vitamin D deficiency Type 2 diabetes mellitus without complication, without long-term current use of insulin ([facility] [place])- Primary Malignant neoplasm of endometrium ([facility] [place]) Malignant neoplasm of corpus uteri, except isthmus Mixed hyperlipidemia ([facility] [place]) Mixed hyperlipidemia Panic attack ([facility] [place]) Panic disorder without agoraphobia Hypothyroidism (acquired) ([facility] [place] Unspecified hypothyroidism Primary hypertension ([facility] [place]) Unspecified essential hypertension Elevated alkaline phosphatase level Primary hypertension ([facility] [place])- Primary Unspecified essential hypertension Tachycardia Unspecified tachycardia Type 2 diabetes mellitus without complication, without long-term current use of insulin ([facility] [place]) Vitamin D deficiency Hypothyroidism (acquired) ([facility] [place] Unspecified hypothyroidism Encounter for screening mammogram for malignant neoplasm of breast Mixed hyperlipidemia ([facility] [place]) Mixed hyperlipidemia Panic attack ([facility] [place]) Panic disorder without agoraphobia Arthritis of both knees Class 3 severe obesity due to excess calories without serious comorbidity with body mass index (BMI) of 45.0 to 49.9 in adult ([facility] [place] Fibromyalgia Unspecified myalgia and myositis Panic attack ([facility] [place])- Primary Panic disorder without agoraphobia Primary hypertension ([facility] [place]) Unspecified essential hypertension Fibromyalgia Unspecified myalgia and myositis Class 3 severe obesity due to excess calories without serious comorbidity with body mass index (BMI) of 45.0 to 49.9 in adult ([facility] [place]) BMI 45.0-49.9, adult [place] [place] Chronic otitis externa of left ear, unspecified type Vertigo Dizziness and giddiness Difficulty walking Difficulty in walking Vitamin D deficiency documented in this encounter [facility] HealthcareEvaluation note* Diagnosis Type 2 diabetes mellitus without complication, without long-term current use of insulin ([facility] [place])- Primary Herpes zoster without complication Class 3 severe obesity due to excess calories without serious comorbidity with body mass index (BMI) of 45.0 to 49.9 in adult ([facility] [place]) Chronic bilateral thoracic back pain- Primary Hypothyroidism (acquired) ([facility] [place]) Unspecified hypothyroidism Type 2 diabetes mellitus without complication, without long-term current use of insulin ([facility] [place]) Class 3 severe obesity due to excess calories without serious comorbidity with body mass index (BMI) of 45.0 to 49.9 in adult ([facility] [place]) Lateral epicondylitis of left elbow Lateral epicondylitis of left elbow- Primary Primary hypertension ([facility] [place]) Unspecified essential hypertension Hypothyroidism (acquired) ([facility] [place]) Unspecified hypothyroidism Class 3 severe obesity due to excess calories without serious comorbidity with body mass index (BMI) of 45.0 to 49.9 in adult ([facility] [place] Type 2 diabetes mellitus without complication, without long-term current use of insulin ([facility] [place]) Vitamin D deficiency Type 2 diabetes mellitus without complication, without long-term current use of insulin ([facility] [place] Primary Malignant neoplasm of endometrium ([facility] [place]) Malignant neoplasm of corpus uteri, except isthmus Mixed hyperlipidemia ([facility] [place]) Mixed hyperlipidemia Panic attack ([facility] [place]) Panic disorder without agoraphobia Hypothyroidism (acquired) ([facility] [place] Unspecified hypothyroidism Primary hypertension ([facility] [place]) Unspecified essential hypertension Elevated alkaline phosphatase level Primary hypertension ([facility] [place] Primary Unspecified essential hypertension Tachycardia Unspecified tachycardia Type 2 diabetes mellitus without complication, without long-term current use of insulin ([facility] [place]) Vitamin D deficiency Hypothyroidism (acquired) ([facility] [place]) Unspecified hypothyroidism Encounter for screening mammogram for malignant neoplasm of breast Mixed hyperlipidemia ([facility] [place]) Mixed hyperlipidemia Panic attack ([facility] [place]) Panic disorder without agoraphobia Arthritis of both knees Class 3 severe obesity due to excess calories without serious comorbidity with body mass index (BMI) of 45.0 to 49.9 in adult ([facility] [place]) Fibromyalgia Unspecified myalgia and myositis Panic attack ([facility] [place] Primary Panic disorder without agoraphobia Primary hypertension ([facility] [place]) Unspecified essential hypertension Fibromyalgia Unspecified myalgia and myositis Class 3 severe obesity due to excess calories without serious comorbidity with body mass index (BMI) of 45.0 to 49.9 in adult ([facility] [place]) BMI 45.0-49.9, adult ([facility] [place]) Chronic otitis externa of left ear, unspecified type Vertigo Dizziness and giddiness Difficulty walking Difficulty in walking Panic attack ([facility] [place]) Panic disorder without agoraphobia documented in this encounter [facility] HealthcareEvaluation note* Diagnosis Type 2 diabetes mellitus without complication, without long-term current use of insulin ([facility] [place] Primary Herpes zoster without complication Class 3 severe obesity due to excess calories without serious comorbidity with body mass index (BMI) of 45.0 to 49.9 in adult ([facility] [place]) Chronic bilateral thoracic back pain- Primary Hypothyroidism (acquired) ([facility] [place] Unspecified hypothyroidism Type 2 diabetes mellitus without complication, without long-term current use of insulin ([facility] [place]) Class 3 severe obesity due to excess calories without serious comorbidity with body mass index (BMI) of 45.0 to 49.9 in adult ([facility] [place]) Lateral epicondylitis of left elbow Lateral epicondylitis of left elbow- Primary Primary hypertension ([facility] [place]) Unspecified essential hypertension Hypothyroidism (acquired) ([facility] [place] Unspecified hypothyroidism Class 3 severe obesity due to excess calories without serious comorbidity with body mass index (BMI) of 45.0 to 49.9 in adult ([facility] [place]) Type 2 diabetes mellitus without complication, without long-term current use of insulin ([facility]) Vitamin D deficiency Type 2 diabetes mellitus without complication, without long-term current use of insulin (CMS/HCC)- Primary Malignant neoplasm of endometrium (CMS/HCC) Malignant neoplasm of corpus uteri, except isthmus Mixed hyperlipidemia (CMS/HCC) Mixed hyperlipidemia Panic attack ([facility]/HCC) Panic disorder without agoraphobia Hypothyroidism (acquired) ([facility] [place]) Unspecified hypothyroidism Primary hypertension (CMS/HCC) Unspecified essential hypertension Elevated alkaline phosphatase level Primary hypertension (CMS/HCC)- Primary Unspecified essential hypertension Tachycardia Unspecified tachycardia Type 2 diabetes mellitus without complication, without long-term current use of insulin ([facility] [place]) Vitamin D deficiency Hypothyroidism (acquired) ([facility] [place]) Unspecified hypothyroidism Encounter for screening mammogram for malignant neoplasm of breast Mixed hyperlipidemia ([facility]) Mixed hyperlipidemia Panic attack ([facility] [place]) Panic disorder without agoraphobia Arthritis of both knees Class 3 severe obesity due to excess calories without serious comorbidity with body mass index (BMI) of 45.0 to 49.9 in adult ([facility] [place]) Fibromyalgia Unspecified myalgia and myositis Panic attack ([facility]/HCC)- Primary Panic disorder without agoraphobia Primary hypertension ([facility] [place]) Unspecified essential hypertension Fibromyalgia Unspecified myalgia and myositis Class 3 severe obesity due to excess calories without serious comorbidity with body mass index (BMI) of 45.0 to 49.9 in adult ([facility] [place]) BMI 45.0-49.9, adult ([facility] [place]) Chronic otitis externa of left ear, unspecified type Vertigo Dizziness and giddiness Difficulty walking Difficulty in walking Primary hypertension ([facility] [place])- Primary Unspecified essential hypertension Morbid (severe) obesity due to excess calories ([facility] [place]) Body mass index (BMI) 45.0-49.9, adult ([facility] [place]) Malignant neoplasm of endometrium ([facility]/HCC) Malignant neoplasm of corpus uteri, except isthmus Tachycardia Unspecified tachycardia Fibromyalgia Unspecified myalgia and myositis Hypothyroidism (acquired) ([facility] [place]) Unspecified hypothyroidism Type 2 diabetes mellitus without complication, without long-term current use of insulin ([facility] [place]) Panic attack ([facility]/HCC) Panic disorder without agoraphobia documented in this encounter [facility] HealthcareEvaluation note* Diagnosis Elevated partial thromboplastin time (PTT)- Primary Abnormal coagulation profile [facility] Diagnosis Type 2 diabetes mellitus without complication, without long-term current use of insulin ([facility] [place])- Primary Herpes zoster without complication Class 3 severe obesity due to excess calories without serious comorbidity with body mass index (BMI) of 45.0 to 49.9 in adult ([facility] [place]) Chronic bilateral thoracic back pain- Primary Hypothyroidism (acquired) ([facility] [place]) Unspecified hypothyroidism Type 2 diabetes mellitus without complication, without long-term current use of insulin ([facility] [place]) Class 3 severe obesity due to excess calories without serious comorbidity with body mass index (BMI) of 45.0 to 49.9 in adult ([facility] [place]) Lateral epicondylitis of left elbow Lateral epicondylitis of left elbow- Primary Primary hypertension ([facility] [place]) Unspecified essential hypertension Hypothyroidism (acquired) ([facility] [place]) Unspecified hypothyroidism Class 3 severe obesity due to excess calories without serious comorbidity with body mass index (BMI) of 45.0 to 49.9 in adult ([facility] [place]) Type 2 diabetes mellitus without complication, without long-term current use of insulin ([facility] [place]) Vitamin D deficiency Type 2 diabetes mellitus without complication, without long-term current use of insulin ([facility] [place])- Primary Malignant neoplasm of endometrium ([facility] [place]) Malignant neoplasm of corpus uteri, except isthmus Mixed hyperlipidemia ([facility] [place] Mixed hyperlipidemia Panic attack ([facility] [place]) Panic disorder without agoraphobia Hypothyroidism (acquired) ([facility] [place]) Unspecified hypothyroidism Primary hypertension ([facility]/HCC) Unspecified essential hypertension Elevated alkaline phosphatase level Primary hypertension ([facility] [place])- Primary Unspecified essential hypertension Tachycardia Unspecified tachycardia Type 2 diabetes mellitus without complication, without long-term current use of insulin ([facility] [place]) Vitamin D deficiency Hypothyroidism (acquired) ([facility] [place]) Unspecified hypothyroidism Encounter for screening mammogram for malignant neoplasm of breast Mixed hyperlipidemia ([facility]/HCC) Mixed hyperlipidemia Panic attack ([facility] [place]) Panic disorder without agoraphobia Arthritis of both knees Class 3 severe obesity due to excess calories without serious comorbidity with body mass index (BMI) of 45.0 to 49.9 in adult ([facility] [place]) Fibromyalgia Unspecified myalgia and myositis Panic attack ([facility]/HCC)- Primary Panic disorder without agoraphobia Primary hypertension ([facility] [place]) Unspecified essential hypertension Fibromyalgia Unspecified myalgia and myositis Class 3 severe obesity due to excess calories without serious comorbidity with body mass index (BMI) of 45.0 to 49.9 in adult ([facility] [place]) BMI 45.0-49.9, adult ([facility] [place]) Chronic otitis externa of left ear, unspecified type Vertigo Dizziness and giddiness Difficulty walking Difficulty in walking Primary hypertension ([facility] [place])- Primary Unspecified essential hypertension Morbid (severe) obesity due to excess calories ([facility] [place]) Body mass index (BMI) 45.0-49.9, adult ([facility] [place]) Malignant neoplasm of endometrium ([facility] [place]) Malignant neoplasm of corpus uteri, except isthmus Tachycardia Unspecified tachycardia Fibromyalgia Unspecified myalgia and myositis Hypothyroidism (acquired) ([facility] [place]) Unspecified hypothyroidism Type 2 diabetes mellitus without complication, without long-term current use of insulin ([facility] [place]) Panic attack ([facility] [place]) Panic disorder without agoraphobia Panic attack ([facility] [place]) Panic disorder without agoraphobia documented in this encounter [facility] HealthcareEvaluation note* Diagnosis Type 2 diabetes mellitus without complication, without long-term current use of insulin ([facility] [place])- Primary Herpes zoster without complication Class 3 severe obesity due to excess calories without serious comorbidity with body mass index (BMI) of 45.0 to 49.9 in adult ([facility] [place]) Chronic bilateral thoracic back pain- Primary Hypothyroidism (acquired) ([facility] [place]) Unspecified hypothyroidism Type 2 diabetes mellitus without complication, without long-term current use of insulin ([facility] [place]) Class 3 severe obesity due to excess calories without serious comorbidity with body mass index (BMI) of 45.0 to 49.9 in adult ([facility] [place]) Lateral epicondylitis of left elbow Lateral epicondylitis of left elbow- Primary Primary hypertension ([facility] [place]) Unspecified essential hypertension Hypothyroidism (acquired) ([facility] [place]) Unspecified hypothyroidism Class 3 severe obesity due to excess calories without serious comorbidity with body mass index (BMI) of 45.0 to 49.9 in adult ([facility] [place]) Type 2 diabetes mellitus without complication, without long-term current use of insulin ([facility] [place]) Vitamin D deficiency Type 2 diabetes mellitus without complication, without long-term current use of insulin (CMS/HCC)- Primary Malignant neoplasm of endometrium (CMS/HCC) Malignant neoplasm of corpus uteri, except isthmus Mixed hyperlipidemia (CMS/HCC) Mixed hyperlipidemia Panic attack (CMS/HCC) Panic disorder without agoraphobia Hypothyroidism (acquired) (CMS/HCC) Unspecified hypothyroidism Primary hypertension (CMS/HCC) Unspecified essential hypertension Elevated alkaline phosphatase level Primary hypertension (CMS/HCC)- Primary Unspecified essential hypertension Tachycardia Unspecified tachycardia Type 2 diabetes mellitus without complication, without long-term current use of insulin (CMS/HCC) Vitamin D deficiency Hypothyroidism (acquired) (CMS/HCC) Unspecified hypothyroidism Encounter for screening mammogram for malignant neoplasm of breast Mixed hyperlipidemia (CMS/HCC) Mixed hyperlipidemia Panic attack (CMS/HCC) Panic disorder without agoraphobia Arthritis of both knees Class 3 severe obesity due to excess calories without serious comorbidity with body mass index (BMI) of 45.0 to 49.9 in adult ([facility] [place]) Fibromyalgia Unspecified myalgia and myositis Panic attack (CMS/HCC)- Primary Panic disorder without agoraphobia Primary hypertension ([facility]/HCC) Unspecified essential hypertension Fibromyalgia Unspecified myalgia and myositis Class 3 severe obesity due to excess calories without serious comorbidity with body mass index (BMI) of 45.0 to 49.9 in adult ([facility] [place]) BMI 45.0-49.9, adult ([facility] [place]) Chronic otitis externa of left ear, unspecified type Vertigo Dizziness and giddiness Difficulty walking Difficulty in walking Primary hypertension (CMS/HCC)- Primary Unspecified essential hypertension Morbid (severe) obesity due to excess calories ([facility] [place]) Body mass index (BMI) 45.0-49.9, adult ([facility] [place]) Malignant neoplasm of endometrium (CMS/HCC) Malignant neoplasm of corpus uteri, except isthmus Tachycardia Unspecified tachycardia Fibromyalgia Unspecified myalgia and myositis Hypothyroidism (acquired) ([facility] [place]) Unspecified hypothyroidism Type 2 diabetes mellitus without complication, without long-term current use of insulin (CMS/HCC) Panic attack ([facility]) Panic disorder without agoraphobia Type 2 diabetes mellitus without complication, without long-term current use of insulin ([facility] [place])- Primary Primary hypertension (CMS/HCC) Unspecified essential hypertension BMI 45.0-49.9, adult ([facility] [place]) Morbid (severe) obesity due to excess calories ([facility]/HCC) Vitamin D deficiency Difficulty walking Difficulty in walking Mixed hyperlipidemia ([facility] [place]) Mixed hyperlipidemia Hypothyroidism (acquired) ([facility] [place]) Unspecified hypothyroidism Fatigue, unspecified type Tachycardia Unspecified tachycardia Strain of right biceps muscle, initial encounter documented in this encounter [facility] HealthcareEvaluation note* Diagnosis Type 2 diabetes mellitus without complication, without long-term current use of insulin ([facility] [place])- Primary Herpes zoster without complication Class 3 severe obesity due to excess calories without serious comorbidity with body mass index (BMI) of 45.0 to 49.9 in adult ([facility] [place]) Chronic bilateral thoracic back pain- Primary Hypothyroidism (acquired) ([facility] [place]) Unspecified hypothyroidism Type 2 diabetes mellitus without complication, without long-term current use of insulin ([facility] [place]) Class 3 severe obesity due to excess calories without serious comorbidity with body mass index (BMI) of 45.0 to 49.9 in adult ([facility] [place]) Lateral epicondylitis of left elbow Lateral epicondylitis of left elbow- Primary Primary hypertension ([facility] [place] Unspecified essential hypertension Hypothyroidism (acquired) ([facility] [place]) Unspecified hypothyroidism Class 3 severe obesity due to excess calories without serious comorbidity with body mass index (BMI) of 45.0 to 49.9 in adult ([facility] [place]) Type 2 diabetes mellitus without complication, without long-term current use of insulin ([facility] [place]) Vitamin D deficiency Type 2 diabetes mellitus without complication, without long-term current use of insulin ([facility] [place])- Primary Malignant neoplasm of endometrium ([facility] [place]) Malignant neoplasm of corpus uteri, except isthmus Mixed hyperlipidemia ([facility] [place] Mixed hyperlipidemia Panic attack ([facility] [place]) Panic disorder without agoraphobia Hypothyroidism (acquired) ([facility] [place] Unspecified hypothyroidism Primary hypertension ([facility] [place]) Unspecified essential hypertension Elevated alkaline phosphatase level Primary hypertension ([facility] [place])- Primary Unspecified essential hypertension Tachycardia Unspecified tachycardia Type 2 diabetes mellitus without complication, without long-term current use of insulin ([facility] [place]) Vitamin D deficiency Hypothyroidism (acquired) ([facility] [place] Unspecified hypothyroidism Encounter for screening mammogram for malignant neoplasm of breast Mixed hyperlipidemia ([facility] [place]) Mixed hyperlipidemia Panic attack ([facility] [place]) Panic disorder without agoraphobia Arthritis of both knees Class 3 severe obesity due to excess calories without serious comorbidity with body mass index (BMI) of 45.0 to 49.9 in adult ([facility] [place] Fibromyalgia Unspecified myalgia and myositis Panic attack ([facility] [place])- Primary Panic disorder without agoraphobia Primary hypertension ([facility] [place]) Unspecified essential hypertension Fibromyalgia Unspecified myalgia and myositis Class 3 severe obesity due to excess calories without serious comorbidity with body mass index (BMI) of 45.0 to 49.9 in adult ([facility] [place]) BMI 45.0-49.9, adult ([facility] [place] Chronic otitis externa of left ear, unspecified type Vertigo Dizziness and giddiness Difficulty walking Difficulty in walking Primary hypertension ([facility] [place])- Primary Unspecified essential hypertension Morbid (severe) obesity due to excess calories ([facility] [place]) Body mass index (BMI) 45.0-49.9, adult ([facility] [place] Malignant neoplasm of endometrium ([facility] [place]) Malignant neoplasm of corpus uteri, except isthmus Tachycardia Unspecified tachycardia Fibromyalgia Unspecified myalgia and myositis Hypothyroidism (acquired) ([facility] [place]) Unspecified hypothyroidism Type 2 diabetes mellitus without complication, without long-term current use of insulin ([facility] [place]) Panic attack ([facility] [place]) Panic disorder without agoraphobia Type 2 diabetes mellitus without complication, without long-term current use of insulin ([facility] [place])- Primary Primary hypertension ([facility] [place]) Unspecified essential hypertension BMI 45.0-49.9, adult ([facility] [place]) Morbid (severe) obesity due to excess calories ([facility] [place] Vitamin D deficiency Difficulty walking Difficulty in walking Mixed hyperlipidemia ([facility] [place]) Mixed hyperlipidemia Hypothyroidism (acquired) ([facility] [place]) Unspecified hypothyroidism Fatigue, unspecified type Tachycardia Unspecified tachycardia Strain of right biceps muscle, initial encounter documented in this encounter [facility] HealthcareEvaluation note* Diagnosis Type 2 diabetes mellitus without complication, without long-term current use of insulin ([facility] [place])- Primary Herpes zoster without complication Class 3 severe obesity due to excess calories without serious comorbidity with body mass index (BMI) of 45.0 to 49.9 in adult ([facility] [place]) Chronic bilateral thoracic back pain- Primary Hypothyroidism (acquired) ([facility] [place]) Unspecified hypothyroidism Type 2 diabetes mellitus without complication, without long-term current use of insulin ([facility] [place]) Class 3 severe obesity due to excess calories without serious comorbidity with body mass index (BMI) of 45.0 to 49.9 in adult ([facility] [place] Lateral epicondylitis of left elbow Lateral epicondylitis of left elbow- Primary Primary hypertension (CMS/HCC) Unspecified essential hypertension Hypothyroidism (acquired) ([facility] [place]) Unspecified hypothyroidism Class 3 severe obesity due to excess calories without serious comorbidity with body mass index (BMI) of 45.0 to 49.9 in adult ([facility] [place]) Type 2 diabetes mellitus without complication, without long-term current use of insulin ([facility] [place]) Vitamin D deficiency Type 2 diabetes mellitus without complication, without long-term current use of insulin ([facility] [place])- Primary Malignant neoplasm of endometrium ([facility] [place]) Malignant neoplasm of corpus uteri, except isthmus Mixed hyperlipidemia ([facility] [place]) Mixed hyperlipidemia Panic attack ([facility] [place]) Panic disorder without agoraphobia Hypothyroidism (acquired) ([facility] [place]) Unspecified hypothyroidism Primary hypertension ([facility] [place] Unspecified essential hypertension Elevated alkaline phosphatase level Primary hypertension ([facility] [place])- Primary Unspecified essential hypertension Tachycardia Unspecified tachycardia Type 2 diabetes mellitus without complication, without long-term current use of insulin ([facility] [place] Vitamin D deficiency Hypothyroidism (acquired) ([facility] [facility] [place] Unspecified hypothyroidism Encounter for screening mammogram for malignant neoplasm of breast Mixed hyperlipidemia ([facility] [place]) Mixed hyperlipidemia Panic attack ([facility] [place] Panic disorder without agoraphobia Arthritis of both knees Class 3 severe obesity due to excess calories without serious comorbidity with body mass index (BMI) of 45.0 to 49.9 in adult ([facility] [place] Fibromyalgia Unspecified myalgia and myositis Panic attack ([facility] [place] Primary Panic disorder without agoraphobia Primary hypertension ([facility] [place] Unspecified essential hypertension Fibromyalgia Unspecified myalgia and myositis Class 3 severe obesity due to excess calories without serious comorbidity with body mass index (BMI) of 45.0 to 49.9 in adult ([facility] [place] BMI 45.0-49.9, adult ([facility] [place] Chronic otitis externa of left ear, unspecified type Vertigo Dizziness and giddiness Difficulty walking Difficulty in walking Primary hypertension ([facility] [place] Primary Unspecified essential hypertension Morbid (severe) obesity due to excess calories ([facility] [place] Body mass index (BMI) 45.0-49.9, adult ([facility] [place]) Malignant neoplasm of endometrium ([facility]/HCC) Malignant neoplasm of corpus uteri, except isthmus Tachycardia Unspecified tachycardia Fibromyalgia Unspecified myalgia and myositis Hypothyroidism (acquired) ([facility] [place] Unspecified hypothyroidism Type 2 diabetes mellitus without complication, without long-term current use of insulin [place] [place] Panic attack [place] [place] Panic disorder without agoraphobia Type 2 diabetes mellitus without complication, without long-term current use of insulin ([facility] [place] Primary Primary hypertension ([facility] [place]) Unspecified essential hypertension BMI 45.0-49.9, adult ([facility] [place] Morbid (severe) obesity due to excess calories ([facility] [place] Vitamin D deficiency Difficulty walking Difficulty in walking Mixed hyperlipidemia ([facility] [place] Mixed hyperlipidemia Hypothyroidism (acquired) ([facility] [place] Unspecified hypothyroidism Fatigue, unspecified type Tachycardia Unspecified tachycardia Strain of right biceps muscle, initial encounter Low back pain at multiple sites- Primary Numbness and tingling Disturbance of skin sensation IRENE (obstructive sleep apnea) Obstructive sleep apnea (adult) (pediatric) Insomnia due to medical condition Organic insomnia, unspecified Class 3 severe obesity with serious comorbidity and body mass index (BMI) of 50.0 to 59.9 in adult, unspecified obesity type ([facility] [place] Sleep deprivation Problems related to lack of adequate sleep Word finding difficulty documented in this encounter [facility]* Diagnosis Type 2 diabetes mellitus without complication, without long-term current use of insulin ([facility] [place] Primary Herpes zoster without complication Class 3 severe obesity due to excess calories without serious comorbidity with body mass index (BMI) of 45.0 to 49.9 in adult ([facility] [place] Chronic bilateral thoracic back pain- Primary Hypothyroidism (acquired) ([facility] [place] Unspecified hypothyroidism Type 2 diabetes mellitus without complication, without long-term current use of insulin ([facility] [place] Class 3 severe obesity due to excess calories without serious comorbidity with body mass index (BMI) of 45.0 to 49.9 in adult ([facility] [place] Lateral epicondylitis of left elbow Lateral epicondylitis of left elbow- Primary Primary hypertension ([facility] [place] Unspecified essential hypertension Hypothyroidism (acquired) ([facility] [place] Unspecified hypothyroidism Class 3 severe obesity due to excess calories without serious comorbidity with body mass index (BMI) of 45.0 to 49.9 in adult ([facility] [place] Type 2 diabetes mellitus without complication, without long-term current use of insulin ([facility] [place] Vitamin D deficiency Type 2 diabetes mellitus without complication, without long-term current use of insulin ([facility] [place] Primary Malignant neoplasm of endometrium (CMS/HCC) Malignant neoplasm of corpus uteri, except isthmus Mixed hyperlipidemia (CMS/HCC) Mixed hyperlipidemia Panic attack ([facility]) Panic disorder without agoraphobia Hypothyroidism (acquired) ([facility] [place] Unspecified hypothyroidism Primary hypertension ([facility] [place]) Unspecified essential hypertension Elevated alkaline phosphatase level Primary hypertension (CMS/HCC)- Primary Unspecified essential hypertension Tachycardia Unspecified tachycardia Type 2 diabetes mellitus without complication, without long-term current use of insulin ([facility] [place] Vitamin D deficiency Hypothyroidism (acquired) ([facility] [place] Unspecified hypothyroidism Encounter for screening mammogram for malignant neoplasm of breast Mixed hyperlipidemia ([facility] [place]) Mixed hyperlipidemia Panic attack ([facility] [place]) Panic disorder without agoraphobia Arthritis of both knees Class 3 severe obesity due to excess calories without serious comorbidity with body mass index (BMI) of 45.0 to 49.9 in adult ([facility] [place]) Fibromyalgia Unspecified myalgia and myositis Panic attack ([facility] [place] Primary Panic disorder without agoraphobia Primary hypertension ([facility] [place]) Unspecified essential hypertension Fibromyalgia Unspecified myalgia and myositis Class 3 severe obesity due to excess calories without serious comorbidity with body mass index (BMI) of 45.0 to 49.9 in adult ([facility] [place] BMI 45.0-49.9, adult ([facility] [place]) Chronic otitis externa of left ear, unspecified type Vertigo Dizziness and giddiness Difficulty walking Difficulty in walking Primary hypertension ([facility] [place] Primary Unspecified essential hypertension Morbid (severe) obesity due to excess calories ([facility] [place] Body mass index (BMI) 45.0-49.9, adult ([facility] [place]) Malignant neoplasm of endometrium ([facility] [place]) Malignant neoplasm of corpus uteri, except isthmus Tachycardia Unspecified tachycardia Fibromyalgia Unspecified myalgia and myositis Hypothyroidism (acquired) ([facility] [place] Unspecified hypothyroidism Type 2 diabetes mellitus without complication, without long-term current use of insulin ([facility] [place]) Panic attack ([facility] [place] Panic disorder without agoraphobia Type 2 diabetes mellitus without complication, without long-term current use of insulin ([facility] [place] Primary Primary hypertension ([facility] [place]) Unspecified essential hypertension BMI 45.0-49.9, adult ([facility] [place]) Morbid (severe) obesity due to excess calories ([facility] [place] Vitamin D deficiency Difficulty walking Difficulty in walking Mixed hyperlipidemia (CMS/HCC) Mixed hyperlipidemia Hypothyroidism (acquired) ([facility] [place]) Unspecified hypothyroidism Fatigue, unspecified type Tachycardia Unspecified tachycardia Strain of right biceps muscle, initial encounter Type 2 diabetes mellitus without complication, without long-term current use of insulin ([facility] [place] Primary hypertension ([facility] [place]) Unspecified essential hypertension documented in this encounter [facility]Evaluation note* Diagnosis Type 2 diabetes mellitus without complication, without long-term current use of insulin ([facility] [place] Primary Herpes zoster without complication Class 3 severe obesity due to excess calories without serious comorbidity with body mass index (BMI) of 45.0 to 49.9 in adult ([facility] [place]) Chronic bilateral thoracic back pain- Primary Hypothyroidism (acquired) ([facility] [place] Unspecified hypothyroidism Type 2 diabetes mellitus without complication, without long-term current use of insulin ([facility] [place]) Class 3 severe obesity due to excess calories without serious comorbidity with body mass index (BMI) of 45.0 to 49.9 in adult ([facility] [place]) Lateral epicondylitis of left elbow Lateral epicondylitis of left elbow- Primary Primary hypertension ([facility] [place]) Unspecified essential hypertension Hypothyroidism (acquired) ([facility] [place] Unspecified hypothyroidism Class 3 severe obesity due to excess calories without serious comorbidity with body mass index (BMI) of 45.0 to 49.9 in adult ([facility] [place]) Type 2 diabetes mellitus without complication, without long-term current use of insulin ([facility] [place] Vitamin D deficiency Type 2 diabetes mellitus without complication, without long-term current use of insulin ([facility] [place] Primary Malignant neoplasm of endometrium ([facility] [place]) Malignant neoplasm of corpus uteri, except isthmus Mixed hyperlipidemia ([facility] [place]) Mixed hyperlipidemia Panic attack ([facility]CC) Panic disorder without agoraphobia Hypothyroidism (acquired) ([facility] [place]) Unspecified hypothyroidism Primary hypertension (CMS/HCC) Unspecified essential hypertension Elevated alkaline phosphatase level Primary hypertension (CMS/HCC)- Primary Unspecified essential hypertension Tachycardia Unspecified tachycardia Type 2 diabetes mellitus without complication, without long-term current use of insulin ([facility] [place]) Vitamin D deficiency Hypothyroidism (acquired) ([facility] [place]) Unspecified hypothyroidism Encounter for screening mammogram for malignant neoplasm of breast Mixed hyperlipidemia (CMS/HCC) Mixed hyperlipidemia Panic attack ([facility] [place]) Panic disorder without agoraphobia Arthritis of both knees Class 3 severe obesity due to excess calories without serious comorbidity with body mass index (BMI) of 45.0 to 49.9 in adult ([facility] [place]) Fibromyalgia Unspecified myalgia and myositis Panic attack ([facility] [place] Primary Panic disorder without agoraphobia Primary hypertension ([facility] [place]) Unspecified essential hypertension Fibromyalgia Unspecified myalgia and myositis Class 3 severe obesity due to excess calories without serious comorbidity with body mass index (BMI) of 45.0 to 49.9 in adult ([facility] [place] BMI 45.0-49.9, adult ([facility] [place]) Chronic otitis externa of left ear, unspecified type Vertigo Dizziness and giddiness Difficulty walking Difficulty in walking Primary hypertension ([facility] [place])- Primary Unspecified essential hypertension Morbid (severe) obesity due to excess calories ([facility] [place] Body mass index (BMI) 45.0-49.9, adult ([facility] [place]) Malignant neoplasm of endometrium ([facility] [place]) Malignant neoplasm of corpus uteri, except isthmus Tachycardia Unspecified tachycardia Fibromyalgia Unspecified myalgia and myositis Hypothyroidism (acquired) ([facility] [place] Unspecified hypothyroidism Type 2 diabetes mellitus without complication, without long-term current use of insulin ([facility] [place]) Panic attack ([facility] [place]) Panic disorder without agoraphobia Type 2 diabetes mellitus without complication, without long-term current use of insulin ([facility] [place])- Primary Primary hypertension ([facility] [place]) Unspecified essential hypertension BMI 45.0-49.9, adult ([facility] [place] Morbid (severe) obesity due to excess calories ([facility] [place]) Vitamin D deficiency Difficulty walking Difficulty in walking Mixed hyperlipidemia ([facility] [place] Mixed hyperlipidemia Hypothyroidism (acquired) ([facility] [place] Unspecified hypothyroidism Fatigue, unspecified type Tachycardia Unspecified tachycardia Strain of right biceps muscle, initial encounter Low back pain at multiple sites Numbness and tingling Disturbance of skin sensation documented in this encounter [facility] HealthcareEvaluation note* Diagnosis Type 2 diabetes mellitus without complication, without long-term current use of insulin ([facility] [place] Primary Herpes zoster without complication Class 3 severe obesity due to excess calories without serious comorbidity with body mass index (BMI) of 45.0 to 49.9 in adult ([facility] [place] Chronic bilateral thoracic back pain- Primary Hypothyroidism (acquired) Unspecified hypothyroidism Type 2 diabetes mellitus without complication, without long-term current use of insulin ([facility] [place]) Class 3 severe obesity due to excess calories without serious comorbidity with body mass index (BMI) of 45.0 to 49.9 in [place] [place] Lateral epicondylitis of left elbow Lateral epicondylitis of left elbow- Primary Primary hypertension Unspecified essential hypertension Hypothyroidism (acquired) Unspecified hypothyroidism Class 3 severe obesity due to excess calories without serious comorbidity with body mass index (BMI) of 45.0 to 49.9 in adult [place] [place] Type 2 diabetes mellitus without complication, without long-term current use of insulin ([facility] [place] Vitamin D deficiency Type 2 diabetes mellitus without complication, without long-term current use of insulin ([facility] [place])- Primary Malignant neoplasm of endometrium (HCC) Malignant neoplasm of corpus uteri, except isthmus Mixed hyperlipidemia Mixed hyperlipidemia Panic attack Panic disorder without agoraphobia Hypothyroidism (acquired) Unspecified hypothyroidism Primary hypertension Unspecified essential hypertension Elevated alkaline phosphatase level Primary hypertension- Primary Unspecified essential hypertension Tachycardia Unspecified tachycardia Type 2 diabetes mellitus without complication, without long-term current use of insulin ([facility] [place]) Vitamin D deficiency Hypothyroidism (acquired) Unspecified hypothyroidism Encounter for screening mammogram for malignant neoplasm of breast Mixed hyperlipidemia Mixed hyperlipidemia Panic attack Panic disorder without agoraphobia Arthritis of both knees Class 3 severe obesity due to excess calories without serious comorbidity with body mass index (BMI) of 45.0 to 49.9 in adult [place] [place] Fibromyalgia Unspecified myalgia and myositis Panic attack- Primary Panic disorder without agoraphobia Primary hypertension Unspecified essential hypertension Fibromyalgia Unspecified myalgia and myositis Class 3 severe obesity due to excess calories without serious comorbidity with body mass index (BMI) of 45.0 to 49.9 in adult [place] [place] BMI 45.0-49.9, adult [place] [place] Chronic otitis externa of left ear, unspecified type Vertigo Dizziness and giddiness Difficulty walking Difficulty in walking Primary hypertension- Primary Unspecified essential hypertension Morbid (severe) obesity due to excess calories ([facility] [place] Body mass index (BMI) 45.0-49.9, adult ([facility] [place] Malignant neoplasm of endometrium (HCC) Malignant neoplasm of corpus uteri, except isthmus Tachycardia Unspecified tachycardia Fibromyalgia Unspecified myalgia and myositis Hypothyroidism (acquired) Unspecified hypothyroidism Type 2 diabetes mellitus without complication, without long-term current use of insulin ([facility] [place]) Panic attack Panic disorder without agoraphobia Type 2 diabetes mellitus without complication, without long-term current use of insulin (HCC)- Primary Primary hypertension Unspecified essential hypertension BMI 45.0-49.9, adult [place] [place] Morbid (severe) obesity due to excess calories ([facility] [place] Vitamin D deficiency Difficulty walking Difficulty in walking Mixed hyperlipidemia Mixed hyperlipidemia Hypothyroidism (acquired) Unspecified hypothyroidism Fatigue, unspecified type Tachycardia Unspecified tachycardia Strain of right biceps muscle, initial encounter Bronchitis- Primary Bronchitis, not specified as acute or chronic Primary hypertension Unspecified essential hypertension Morbid (severe) obesity due to excess calories ([facility] [place] Type 2 diabetes mellitus without complication, without long-term current use of insulin ([facility] [place] Wheezing Vestibular dizziness Vertigo Dizziness and giddiness Fibromyalgia Unspecified myalgia and myositis Primary hypertension- Primary Unspecified essential hypertension Morbid (severe) obesity due to excess calories [place] [place] Type 2 diabetes mellitus without complication, without long-term current use of insulin ([facility] [place]) Mixed hyperlipidemia Mixed hyperlipidemia Panic attack Panic disorder without agoraphobia Hypothyroidism (acquired) Unspecified hypothyroidism Tachycardia Unspecified tachycardia documented in this encounter [facility] HealthcareEvaluation note* Diagnosis Type 2 diabetes mellitus without complication, without long-term current use of insulin ([facility] [place] Primary Herpes zoster without complication Class 3 severe obesity due to excess calories without serious comorbidity with body mass index (BMI) of 45.0 to 49.9 in adult [place] [place] Chronic bilateral thoracic back pain- Primary Hypothyroidism (acquired) Unspecified hypothyroidism Type 2 diabetes mellitus without complication, without long-term current use of insulin ([facility] [place]) Class 3 severe obesity due to excess calories without serious comorbidity with body mass index (BMI) of 45.0 to 49.9 in adult [place] [place] Lateral epicondylitis of left elbow Lateral epicondylitis of left elbow- Primary Primary hypertension Unspecified essential hypertension Hypothyroidism (acquired) Unspecified hypothyroidism Class 3 severe obesity due to excess calories without serious comorbidity with body mass index (BMI) of 45.0 to 49.9 in adult [place] [place] Type 2 diabetes mellitus without complication, without long-term current use of insulin ([facility] [place] Vitamin D deficiency Type 2 diabetes mellitus without complication, without long-term current use of insulin (HCC)- Primary Malignant neoplasm of endometrium (HCC) Malignant neoplasm of corpus uteri, except isthmus Mixed hyperlipidemia Mixed hyperlipidemia Panic attack Panic disorder without agoraphobia Hypothyroidism (acquired) Unspecified hypothyroidism Primary hypertension Unspecified essential hypertension Elevated alkaline phosphatase level Primary hypertension- Primary Unspecified essential hypertension Tachycardia Unspecified tachycardia Type 2 diabetes mellitus without complication, without long-term current use of insulin ([facility] [place]) Vitamin D deficiency Hypothyroidism (acquired) Unspecified hypothyroidism Encounter for screening mammogram for malignant neoplasm of breast Mixed hyperlipidemia Mixed hyperlipidemia Panic attack Panic disorder without agoraphobia Arthritis of both knees Class 3 severe obesity due to excess calories without serious comorbidity with body mass index (BMI) of 45.0 to 49.9 in adult [place] [place] Fibromyalgia Unspecified myalgia and myositis Panic attack- Primary Panic disorder without agoraphobia Primary hypertension Unspecified essential hypertension Fibromyalgia Unspecified myalgia and myositis Class 3 severe obesity due to excess calories without serious comorbidity with body mass index (BMI) of 45.0 to 49.9 in [place] [place] BMI 45.0-49.9, adult [place] [place] Chronic otitis externa of left ear, unspecified type Vertigo Dizziness and giddiness Difficulty walking Difficulty in walking Primary hypertension- Primary Unspecified essential hypertension Morbid (severe) obesity due to excess calories [place] [place] [place] Body mass index (BMI) 45.0-49.9, adult [place] [place] Malignant neoplasm of endometrium (HCC) Malignant neoplasm of corpus uteri, except isthmus Tachycardia Unspecified tachycardia Fibromyalgia Unspecified myalgia and myositis Hypothyroidism (acquired) Unspecified hypothyroidism Type 2 diabetes mellitus without complication, without long-term current use of insulin ([facility] Panic attack Panic disorder without agoraphobia Type 2 diabetes mellitus without complication, without long-term current use of insulin ([facility] Primary Primary hypertension Unspecified essential hypertension BMI 45.0-49.9, adult [place] [place] Morbid (severe) obesity due to excess calories [place] [place] Vitamin D deficiency Difficulty walking Difficulty in walking Mixed hyperlipidemia Mixed hyperlipidemia Hypothyroidism (acquired) Unspecified hypothyroidism Fatigue, unspecified type Tachycardia Unspecified tachycardia Strain of right biceps muscle, initial encounter Bronchitis- Primary Bronchitis, not specified as acute or chronic Primary hypertension Unspecified essential hypertension Morbid (severe) obesity due to excess calories [place] [place] Type 2 diabetes mellitus without complication, without long-term current use of insulin ([facility]) Wheezing Vestibular dizziness Vertigo Dizziness and giddiness Fibromyalgia Unspecified myalgia and myositis Primary hypertension- Primary Unspecified essential hypertension Morbid (severe) obesity due to excess calories (CMS-HCC) Type 2 diabetes mellitus without complication, without long-term current use of insulin (HCC) Mixed hyperlipidemia Mixed hyperlipidemia Panic attack Panic disorder without agoraphobia Hypothyroidism (acquired) Unspecified hypothyroidism Tachycardia Unspecified tachycardia Primary hypertension- Primary Unspecified essential hypertension Morbid (severe) obesity due to excess calories (CMS-HCC) Panic attack Panic disorder without agoraphobia documented in this encounter [facility]* Diagnosis Dizziness- Primary Dizziness and giddiness Paresthesias Disturbance of skin sensation Fibromyalgia Unspecified myalgia and myositis Morning headache documented in this encounter [facility] of Present illness NarrativePatient returns once again in follow-up of problems which appear to be, on original presentation, at ypical chest pain and vertigo. She has been [...] needed or in about 2 years and sheis comfortable with that concept. She was encouraged to call if problems arise and she was educated regarding more typical cardiac symptoms to watch for and be aware of. We did advocate diet exerciseand weight loss because she appears capable of doing it at her young age.[facility] [address] DO Work Phone: Hospital Discharge instructionsAmbulatory Orders* Referral to Orthopedic Surgery Time Frame: 02/01/25, Location: None [facility] Work Phone: InstructionsNot on filedocumented in this encounter [facility]ructionsNot on filedocumented in this encounter [facility] SystemInstructionsNot on filedocumented in this encounter [facility] SystemInstructionsNot on filedocumented in this encounter [facility] SystemReason for referral (narrative)No reason for referral information availableGal[facility] Work Phone: Reason for visit Narrative* Rehabilitation - Outpatient (Routine) - Pending Review Specialty Diagnoses / Procedures Referred By Contac t Referred To Contact Physical Therapy Diagnoses Radiculopathy, lumbar region Procedures AR THER PX 1/> AREAS EACH 15 MIN NEUROMUSC REEDUCA PHYS/OCC THERAPY SS AR MANUAL THERAPY TQS 1/> REGIONS EACH 15 MINUTES AR THERAPEUTIC PX 1/> AREAS EACH 15 MIN EXERCISES Enrique Amador, [address] [place] [address] Phone: tel: fax: [facility] [address] [address] Phone: tel: fax: Referral ID Status Reason Start Date Expiration Date V isits Requested Visits Authorized [id number] Pending Review 02/23/2024 01/09/2025 1 1 [facility]Reason for [facility] Narrative* Rehabilitation - Outpatient (Routine) - Authorized Specialty Diagnoses / Procedures Referred By Contac t Referred To Contact Physical Therapy Diagnoses Radiculopathy, lumbar region Procedures AR PHYSICAL THERAPY EVALUATION LOW COMPLEX 20 MINS Enrique Amador NP [address] [place] [id number] Phone: tel: fax: [facility] [address] [address] Phone: tel: fax: Referral ID Status Reason Start Date Expiration Date V isits Requested Visits Authorized [id number] Authorized 01/14/2024 07/12/2024 1 12 [facility] HealthcareReason for [facility] Narrative* Rehabilitation - Outpatient (Routine) - Closed Specialty Diagnoses / Procedures Referred By Contac t Referred To Contact Physical Therapy Diagnoses Radiculopathy, lumbar region Procedures AR PHYSICAL THERAPY EVALUATION LOW COMPLEX 20 MINS Enrique Amadro, [address] [place] [address] Phone: tel: fax: [facility] [address] [address] Phone: tel: fax: Referral ID Status Reason Start Date Expiration Date Visits Re quested Visits Authorized [id number] Closed 01/14/2024 07/12/2024 1 12 [facility] Healthcare Summary Purpose Family History No Family History Records FoundUnknown Family Member Name Dates Details Family history of diabetes m ellitus: Mother, Brother(V18.0, Z83.3) Status:Active Family history of hypertensi on: Mother, Father(V17.49, Z82.49) Status:Active Relationship Condition Age at Onset Recorded Date/T bertha mother Diabetes mellitus Unknown Hypertension Unknown High blood cholesterol Unknown Hypothyroidism Unknown Osteoporosis Unknown Anxiety with depression Unknown father Hypertension Unknown History of impaired glucose tolerance Unk nown Overweight Unknown brother Hypertension Unknown Diabetes mellitus Unknown Glaucoma Unknown daughter Type 1 von Willebrand disease Unknown Asthma Unknown Scoliosis Unknown son Type 1 von Willebrand disease Unknown Attention deficit hy peractivity disorder (ADHD) Unknown Autistic disorder Unknown Advance Directives No Advanced Directives Records Found Advance Directive Response Recorded Date/ Time Advance Directives No August 30 11:10am Chief Complaint DENISHA MALDONADO is being seen for an annual follow-up of. Chief Complaint and Reason for Visit Chief Complaint Admit Date Self- Robin (QDONE) October 18, 2024 8 :43am Reason for Visit Admit Date Abnormal weight gain October 18, 2024 8:4 3am Anxiety October 18, 2024 8:43 am Arthritis of both knees October 18, 2024 8:43am Asthma October 18, 2024 8:43 am BMI 50.0-59.9, adult October 18, 2024 8:4 3am Class 3 severe obesity with body mass index (BMI) of 50.0 to 59.9 in adult October 18, 2024 8:43am Dietary surveillance and counseling October 18, 2024 8:43am Exercise counseling October 18, 2024 8:43 am Fibromyalgia October 18, 2024 8:43 am High cholesterol October 18, 2024 8:43 am History of hysterectomy October 18, 2024 8:43am Hypertension October 18, 2024 8:43 am Hypothyroidism October 18, 2024 8:43 am Lumbar spondylosis October 18, 2024 8:43 am IRENE (obstructive sleep apnea) October 18, 2024 8:43am PCOS (polycystic ovarian syndrome) October 18, 2024 8:43am Prediabetes October 18, 2024 8:43 am Chief Complaint Admit Date Self- [place] (QDONE) October 18, 2024 8 :43am 6 week December 01, 2024 10:5 6am Reason for Visit Admit Date Abnormal weight gain October 18, 2024 8:4 3am Anxiety October 18, 2024 8:43 am Arthritis of both knees October 18, 2024 8:43am Asthma October 18, 2024 8:43 am BMI 50.0-59.9, adult October 18, 2024 8:4 3am Class 3 severe obesity with body mass index (BMI) of 50.0 to 59.9 in adult October 18, 2024 8:43am Dietary surveillance and counseling October 18, 2024 8:43am Exercise counseling October 18, 2024 8:43 am Fibromyalgia October 18, 2024 8:43 am High cholesterol October 18, 2024 8:43 am History of hysterectomy October 18, 2024 8:43am Hypertension October 18, 2024 8:43 am Hypothyroidism October 18, 2024 8:43 am Lumbar spondylosis October 18, 2024 8:43 am IRENE (obstructive sleep apnea) October 18, 2024 8:43am PCOS (polycystic ovarian syndrome) October 18, 2024 8:43am Prediabetes October 18, 2024 8:43 am Abnormal weight gain December 01, 2024 10: 56am Anxiety December 01, 2024 10:5 6am Arthritis of both knees December 01, 2024 10:56am Asthma December 01, 2024 10:5 6am BMI 50.0-59.9, adult December 01, 2024 10: 56am Class 3 severe obesity with body mass index (BMI) of 50.0 to 59.9 in adult December 01, 2024 10:56am Dietary surveillance and counseling December 01, 2024 10:56am Exercise counseling December 01, 2024 10:5 6am Fibromyalgia December 01, 2024 10:5 6am High cholesterol December 01, 2024 10:5 6am History of hysterectomy December 01, 2024 10:56am Hypertension December 01, 2024 10:5 6am Hypothyroidism December 01, 2024 10:5 6am Lumbar spondylosis December 01, 2024 10:5 6am IRENE (obstructive sleep apnea) December 01, 2024 10:56am PCOS (polycystic ovarian syndrome) December 01, 2024 10:56am Prediabetes December 01, 2024 10:5 6am Chief Complaint Admit Date Self- Robin (QDONE) October 18, 2024 8 :43am 6 week December 01, 2024 10:5 6am wm December 07, 2024 8:54 am Chief Complaint Admit Date 6 week December 01, 2024 10:5 6am wm December 07, 2024 8:54 am Reason for Visit Admit Date Abnormal weight gain December 01, 2024 10: 56am Anxiety December 01, 2024 10:5 6am Arthritis of both knees December 01, 2024 10:56am Asthma December 01, 2024 10:5 6am BMI 50.0-59.9, adult December 01, 2024 10: 56am Class 3 severe obesity with body mass index (BMI) of 50.0 to 59.9 in adult December 01, 2024 10:56am Dietary surveillance and counseling December 01, 2024 10:56am Exercise counseling December 01, 2024 10:5 6am Fibromyalgia December 01, 2024 10:5 6am High cholesterol December 01, 2024 10:5 6am History of hysterectomy December 01, 2024 10:56am Hypertension December 01, 2024 10:5 6am Hypothyroidism December 01, 2024 10:5 6am Lumbar spondylosis December 01, 2024 10:5 6am IRENE (obstructive sleep apnea) December 01, 2024 10:56am PCOS (polycystic ovarian syndrome) December 01, 2024 10:56am Prediabetes December 01, 2024 10:5 6am Abnormal weight gain January 26 10:00am Anxiety January 26, 2025 10:00am Arthritis of both knees January 26, 2025 10:00am Asthma January 26, 2025 10:00am BMI 50.0-59.9, adult January 26 10:00am Class 3 severe obesity with body mass index (BMI) of 50.0 to 59.9 in adult January 26, 2025 10:00am Dietary surveillance and counseling Sept ember 2024 10:00am Exercise counseling January 26, 2025 10:00am Fibromyalgia January 26, 2025 10:00am High cholesterol January 26, 2025 10:00am History of hysterectomy January 26, 2025 10:00am Hypertension January 26, 2025 10:00am Hypothyroidism January 26, 2025 10:00am Lumbar spondylosis January 26, 2025 10:00am IRENE (obstructive sleep apnea) January 26, 2025 10:00am PCOS (polycystic ovarian syndrome) Bronsonferdinand nadia 2024 10:00am Prediabetes January 26, 2025 10:00am Chief Complaint Admit Date 6 week December 01, 2024 10:5 6am wm December 07, 2024 8:54 am 6W February 01, 2025 8:42am Reason for Visit Admit Date Abnormal weight gain December 01, 2024 10: 56am Anxiety December 01, 2024 10:5 6am Arthritis of both knees December 01, 2024 10:56am Asthma December 01, 2024 10:5 6am BMI 50.0-59.9, adult December 01, 2024 10: 56am Class 3 severe obesity with body mass index (BMI) of 50.0 to 59.9 in adult December 01, 2024 10:56am Dietary surveillance and counseling December 01, 2024 10:56am Exercise counseling December 01, 2024 10:5 6am Fibromyalgia December 01, 2024 10:5 6am High cholesterol December 01, 2024 10:5 6am History of hysterectomy December 01, 2024 10:56am Hypertension December 01, 2024 10:5 6am Hypothyroidism December 01, 2024 10:5 6am Lumbar spondylosis December 01, 2024 10:5 6am IRENE (obstructive sleep apnea) December 01, 2024 10:56am PCOS (polycystic ovarian syndrome) December 01, 2024 10:56am Prediabetes December 01, 2024 10:5 6am Abnormal weight gain January 26 10:00am Anxiety January 26, 2025 10:00am Arthritis of both knees January 26, 2025 10:00am Asthma January 26, 2025 10:00am BMI 50.0-59.9, adult January 26 10:00am Class 3 severe obesity with body mass index (BMI) of 50.0 to 59.9 in adult January 26, 2025 10:00am Dietary surveillance and counseling Sept ember 2024 10:00am Exercise counseling January 26, 2025 10:00am Fibromyalgia January 26, 2025 10:00am High cholesterol January 26, 2025 10:00am History of hysterectomy January 26, 2025 10:00am Hypertension January 26, 2025 10:00am Hypothyroidism January 26, 2025 10:00am Lumbar spondylosis January 26, 2025 10:00am IRENE (obstructive sleep apnea) January 26, 2025 10:00am PCOS (polycystic ovarian syndrome) Septe mber 2024 10:00am Prediabetes January 26, 2025 10:00am Anxiety February 01, 2025 8:42am Biceps tendonitis February 01, 2025 8:42am Class 3 severe obesity with body mass index (BMI) of 50.0 to 59.9 in adult February 01, 2025 8:42am Essential hypertension February 01, 8:42am Chief Complaint Admit Date 6 week December 01, 2024 10:5 6am wm December 07, 2024 8:54 am 6W February 01, 2025 8:42am wm February 08, 2025 9: 56am Additional Source Comments INFORMATION SOURCE (unrecogn ized section and content) DATE CREATED AUTHOR 06/30/2022 [facility] DATE CREATED AUTHOR AUTHOR'S ORGANIZ ATION 07/01/2022 [employer] DATE CREATED AUTHOR AUTHOR'S ORGANIZ ATION 07/08/2022 [facility] DATE CREATED AUTHOR AUTHOR'S ORGANIZ ATION 08/31/2023 [facility] DATE CREATED AUTHOR AUTHOR'S ORGANIZ ATION 12/22/2023 [facility] DATE CREATED AUTHOR AUTHOR'S ORGANIZ ATION 04/12/2024 [facility] DATE CREATED AUTHOR AUTHOR'S ORGANIZ ATION 12/23/2024 [facility] DATE CREATED AUTHOR AUTHOR'S ORGANIZ ATION 01/22/[address] DATE CREATED AUTHOR AUTHOR'S ORGANIZ ATION 02/19/2025 [facility] DATE CREATED AUTHOR AUTHOR'S ORGANIZ ATION 02/20/2025 [facility] Source Comments (unrecognize d section and content) In the event this informatio n is protected by the Federal Confidentiality of Alcohol and Drug Abuse Patient Records regulations: The Federal rules restrict any use of the information to criminally investigate or prosecute any alcohol or drug abuse patient.[facility] the event this information is protected by the Federal Confidentiality of Alcohol and Drug Abuse Patient Records regulations: The Federal rules restrict any use of the information to criminally investigate or prosecute any alcohol or drug abuse patient.[facility] Reason for Visit (unrecogniz ed section and content) Reason Comments Consult Reason Comments Genetics- parental testing Specialty Diagnoses / Procedures Referred By Contac t Referred To Contact Physical Therapy Diagnoses Radiculopathy, lumbar region Procedures AR PHYSICAL THERAPY EVALUATION LOW COMPLEX 20 MINS Enrique Amador, [address] [place] [address] [facility] [address] [facility] [address] [place] [address] Referral ID Status Reason Start Date Expiration Date V isits Requested Visits Authorized [id number] Authorized 01/14/2024 07/12/2024 30 8 Referral ID Status Reason Start Date Expiration Date Visits Re quested Visits Authorized [id number] Closed 01/14/2024 07/12/2024 30 8 Reason Onset Date Comments Med Refill 03/14/2024 Reason Comments Pain Reason Onset Date Comments Med Refill 03/24/2024 Reason Comments Annual Exam 2 year Reason Comments Diabetes Referral ID Status Reason Start Date Expiration Date V isits Requested Visits Authorized [id number] Authorized 01/14/2024 07/12/2024 30 30 Reason Onset Date Comments Med Refill 04/19/2024 Reason Comments Med Refill Reason Onset Date Comments Med Refill 05/09/2024 Reason Comments Anxiety Hypertension Reason Onset Date Comments Med Refill 06/26/2024 Reason Comments Dizziness Extremity Weakness balance issues\ Reason Onset Date Comments Med Refill 07/14/2024 Reason Comments Hypertension Reason Comments New Patient Patient is here toda y as a new patient for dx: Vestibular dizziness and Vertigo. Patient is here today to become an established patient, patient previously seen by Dr. Lew. Specialty Diagnoses / Procedures Referred By Shira george Referred To Contact Neurology Diagnoses Vestibular dizziness Vertigo Fibromyalgia Allison Mendez, [employer] CONSULTANT [address] [place] [address] Phone: tel: fax: Karen Sears MD [address] [place] [address] Phone: tel: fax: Referral ID Status Reason Start Date Expiration Date Visits Requested Visits Authorized [id number] Pending Review Specialty Services Required 10/07/2024 10/07/2025 1 1 Reason Onset Date Comments MR BRAIN IAC 02/10/2025 Care Teams (unrecognized sec tion and content) Leg Assembler Relationship Specialty Start Date End Date Leonard Aviles MD [address] [place] [phone] PCP - General Family Medicine 07/30/23 Allison Mendez NP [address] [place] [phone] Nurse Practitioner Family Medicine 07/30/23 Leg Assembler Relationship Specialty Start Date End Date Leonard Aviles MD [address] [place] [address] PCP - General Family Medicine 07/30/23 Allison Mendez NP [address] [place] [address] Nurse Practitioner Family Medicine 07/30/23 Leg Assembler Relationship Specialty Start Date End Date Leonard Aviles MD [address] [place] [address] PCP - General Family Medicine 07/30/23 Allison Mendez NP [address] [place] [address] Nurse Practitioner Family Medicine 07/30/23 Leg Assembler Relationship Specialty Start Date End Date Leonard Aviles MD [address] [place] [address] PCP - General Family Medicine 07/30/23 Allison Mendez NP [address] [place] [address] Nurse Practitioner Family Medicine 07/30/23 Leg Assembler Relationship Specialty Start Date End Date Leonard Aviles MD [address] [place] [address] PCP - General Family Medicine 07/30/23 Allison Mendez NP [address] [place] [address] Nurse Practitioner Family Medicine 07/30/23 Leg Assembler Relationship Specialty Start Date End Date Leonard Aviles MD [address] [place] [address] PCP - General Family Medicine 07/30/23 Allison Mendez NP [address] [place] [address] Nurse Practitioner Family Medicine 07/30/23 Leg Assembler Relationship Specialty Start Date End Date Leonard Aviles MD [address] [place] [phone] PCP - General Family Medicine 07/30/23 Allison Mendez NP [address] [place] [address] Nurse Practitioner Family Medicine 07/30/23 Leg Assembler Relationship Specialty Start Date End Date Leonard Aviles MD [address] [place] [address] PCP - General Family Medicine 07/30/23 Allison Mendez NP [address] [place] [address] Nurse Practitioner Family Medicine 07/30/23 Leg Assembler Relationship Specialty Start Date End Date Leonard Aviles MD [address] [place] [address] PCP - General Family Medicine 07/30/23 Allison Mendez NP [address] [place] [address] Nurse Practitioner Family Medicine 07/30/23 Leg Assembler Relationship Specialty Start Date End Date Leonard Aviles MD [address] [place] [address] PCP - General Family Medicine 07/30/23 Allison Mendez NP [address] [place] [address] Nurse Practitioner Family Medicine 07/30/23 Leg Assembler Relationship Specialty Start Date End Date Leonard Aviles MD [address] [place] [phone] PCP - General Family Medicine 07/30/23 Allison Mendez NP [address] [place] [address] Nurse Practitioner Family Medicine 07/30/23 Leg Assembler Relationship Specialty Start Date End Date Leonard Aviles MD [address] [place] [phone] PCP - General Family Medicine 07/30/23 Allison Mendez NP [address] [place] [address] Nurse Practitioner Family Medicine 07/30/23 Leg Assembler Relationship Specialty Start Date End Date Leonard Aviles MD [address] [place] [phone] PCP - General Family Medicine 07/30/23 Allison Mendez NP [address] [place] [address] Nurse Practitioner Family Medicine 07/30/23 Leg Assembler Relationship Specialty Start Date End Date Leonrad Aviles MD [address] [place] [address] PCP - General Family Medicine 07/30/23 Allison Mendez NP [address] [place] [address] Nurse Practitioner Family Medicine 07/30/23 Leg Assembler Relationship Specialty Start Date End Date Leonard Aviles MD [address] [place] [phone] PCP - General Family Medicine 07/30/23 Allison Mendez NP [address] [place] [address] Nurse Practitioner Family Medicine 07/30/23 Leg Assembler Relationship Specialty Start Date End Date Leonard Aviles MD [address] [place] [address] PCP - General Family Medicine 07/30/23 Allison Mendez NP [address] [place] [address] Nurse Practitioner Family Medicine 07/30/23 Leg Assembler Relationship Specialty Start Date End Date Leonard Aviles MD [address] [place] [address] PCP - General Family Medicine 07/30/23 Allison Mendez NP [address] [place] [address] Nurse Practitioner Family Medicine 07/30/23 Leg Assembler Relationship Specialty Start Date End Date Leonard Aviles MD [address] [place] [address] PCP - General Family [facility] 07/30/23 Allison Mendez NP [address] [place] [address] [facility] 02/09/24 Allison Menedz NP [address] [place] [phone] Nurse Practitioner Family Medicine 07/30/23 Leg Assembler Relationship Specialty Start Date End Date Leonard Aviles MD [address] [place] [phone] PCP - General Family [facility] 07/30/23 Allison Mendez NP [address] [place] [phone] PCP - [facility] 02/09/24 Allison Mendez NP [address] [place] [address] Nurse Practitioner Family Medicine 07/30/23 Leg Assembler Relationship Specialty Start Date End Date Leonard Aviles MD [address] [place] [phone] PCP - General [facility] 07/30/23 Allison Mendez NP [address] [place] [phone] PCP [facility] 02/09/24 Allison Mendez NP [address] [place] [phone] Nurse Practitioner Family [facility] 07/30/23 Leg Assembler Relationship Specialty Start Date End Date Leonard Aviles MD [address] [place] [phone] PCP - General [facility] 07/30/23 Allison Mendez NP [address] [place] [address] [facility] 02/09/24 Allison Mendez NP [address] [place] [phone] Nurse Practitioner Family Medicine 07/30/23 Leg Assembler Relationship Specialty Start Date End Date Allison Mendez, PROOFER-CRM CONSULTANT [address] [place] [address] PCP - General 10/09/20 Leg Assembler Relationship Specialty Start Date End Date Leonard Aviles MD [address] [place] [phone] PCP - General Family Medicine 07/30/23 Allison Mendez NP [address] [place] [address] [facility] 02/09/24 Allison Mendez NP [address] [place] [address] Nurse Practitioner Family Medicine 07/30/23 Leg Assembler Relationship Specialty Start Date End Date Leonard Aviles MD [address] [place] [address] PCP - General Family Medicine 07/30/23 Allison Mendez NP [address] [place] [address] [facility] 02/09/24 Allison Mendez NP [address] [place] [address] Nurse Practitioner Family Medicine 07/30/23 Leg Assembler Relationship Specialty Start Date End Date Leonard Aviles MD [address] [place] [address] PCP - General Family Medicine 07/30/23 Allison Mendez NP [address] [place] [address] Nurse Practitioner Family Medicine 07/30/23 Leg Assembler Relationship Specialty Start Date End Date Leonard Aviles MD [address] [place] [address] PCP - General Family Medicine 07/30/23 Allison Mendez NP [address] [place] [address] PCP - [facility] 02/09/24 Allison Mendez NP [address] [place] [address] Nurse Practitioner Family Medicine 07/30/23 Leg Assembler Relationship Specialty Start Date End Date Leonard Aviles MD [address] [place] [address] PCP - General Family Medicine 07/30/23 Allsion Mendez NP [address] [place] [address] Nurse Practitioner Family Medicine 07/30/23 Leg Assembler Relationship Specialty Start Date End Date Leonard Aviles MD [address] [place] [address] PCP - General Family Medicine 07/30/23 Allison Mendez NP [address] [place] [address] Nurse Practitioner Family Medicine 07/30/23 Leg Assembler Relationship Specialty Start Date End Date Leonard Aviles MD [address] [place] [address] PCP - General Family Medicine 07/30/23 Allison Mendez NP [address] [place] [address] Nurse Practitioner Family Medicine 07/30/23 Leg Assembler Relationship Specialty Start Date End Date Leonard Aviles MD [address] [place] [address] PCP - General [facility] 07/30/23 Allison Mendez NP [address] [place] [address] Nurse Practitioner Family Medicine 07/30/23 Leg Assembler Relationship Specialty Start Date End Date Leonard Aviles MD [address] [place] [address] PCP - General Family Medicine 07/30/23 Allison Mendez NP [address] [place] [address] [facility] 02/09/24 Allison Mendez NP [address] [place] [address] Nurse Practitioner Family Medicine 07/30/23 Leg Assembler Relationship Specialty Start Date End Date Leonard Aviles MD [address] [place] [address] PCP - General Family Medicine 07/30/23 Allison Mendez NP [address] [place] [address] PCP - [facility] 02/09/24 Allison Mendez NP [address] [place] [address] Nurse Practitioner Family Medicine 07/30/23 Leg Assembler Relationship Specialty Start Date End Date Leonard Aviles MD [address] [place] [address] PCP - General Family [facility] 07/30/23 Alliosn Mendez NP [address] [place] [address] [facility] 02/09/24 Allison Mendez NP [address] [place] [address] Nurse Practitioner Family Medicine 07/30/23 Leg Assembler Relationship Specialty Start Date End Date Leonard Aviles MD [address] [place] [address] PCP - General Family [facility] 07/30/23 Allison Mendez NP [address] [place] [address] PCP [facility] 02/09/24 Allison Mendez NP [address] [place] [address] Nurse Practitioner Family Medicine 07/30/23 Leg Assembler Relationship Specialty Start Date End Date Allison Mendez, PROOFER-CRM CONSULTANT [address] [place] [address] PCP - General Nurse Practitioner 04/14/23 Leg Assembler Relationship Specialty Start Date End Date Leonard Aviles MD [address] [place] [address] PCP - General Family Medicine 07/30/23 Allison Mendez NP [address] [place] [address] [facility] 02/09/24 Allison Mendez NP [address] [place] [address] Nurse Practitioner Family Medicine 07/30/23 Leg Assembler Relationship Specialty Start Date End Date Leonard Aviles MD [address] [place] [address] PCP - General Family Medicine 07/30/23 Allison Mendez NP [address] [place] [address] [facility] 02/09/24 Allison Mendez NP [address] [place] [address] Nurse Practitioner Family Medicine 07/30/23 Leg Assembler Relationship Specialty Start Date End Date Leonard Aviles MD [address] [place] [address] PCP - General [facility] 07/30/23 Allison Mendez NP [address] [place] [address] [facility] 02/09/24 Allison Mendez NP [address] [place] [address] Nurse Practitioner [facility] 07/30/23 Leg Assembler Relationship Specialty Start Date End Date Leonard Aviles MD [address] [place] [address] PCP - [facility] 07/30/23 Allison Mendez NP [address] [place] [address] [facility] 02/09/24 Allison Mendez NP [address] [place] [address] Nurse Practitioner [facility] 07/30/23 Leg Assembler Relationship Specialty Start Date End Date Leonard Aviles MD [address] [place] [address] PCP - [facility] 07/30/23 Allison Mendez NP [address] [place] [address] PCP - [facility] 02/09/24 Allison Mendez NP [address] [place] [address] Nurse Practitioner [facility] 07/30/23 Leg Assembler Relationship Specialty Start Date End Date Leonard Aviles MD [address] [place] [address] PCP - General [facility] 07/30/23 Allison Mendez NP [address] [place] [address] PCP - [facility] 02/09/24 Allison Mendez NP [address] [place] [address] Nurse Practitioner [facility] 07/30/23 Stephany Lew DO [address] [place] [address] Referring Physician Neurology 07/13/24 Leg Assembler Relationship Specialty Start Date End Date Leonard Aviles MD [address] [place] [address] PCP - General [facility] 07/30/23 Allison Mendez NP [address] [place] [address] PCP - [facility] 02/09/24 Allison Mendez NP [address] [place] [address] Nurse Practitioner Family Medicine 07/30/23 Stephany Lew DO [address] [place] [address] Referring Physician Neurology 07/13/24 Leg Assembler Relationship Specialty Start Date End Date Leonard Aviles MD [address] [place] [address] PCP - General [facility] 07/30/23 Allison Mendez NP [address] [place] [address] PCP - [facility] 02/09/24 Allison Mendez NP [address] [place] [address] Nurse Practitioner Family [facility] 07/30/23 Stephany Lew DO [address] [place] [address] Referring Physician Neurology 07/13/24 Leg Assembler Relationship Specialty Start Date End Date Leonard Aviles MD [address] [place] [address] PCP - [facility] 07/30/23 Allison Mendez NP [address] [place] [address] PCP - [facility] 02/09/24 Allison Mendez NP [address] [place] [address] Nurse Practitioner Family Medicine 07/30/23 Stephany Lew DO [address] [place] [address] Referring Physician Neurology 07/13/24 Team Status: Active Member Role Status Dates Allison Mendez Primary Care Provider Active Team Status: Inactive Member Role Status Dates Allison Mendez Primary Care Provider Active Sta rt: October 18, 2024 End: October 18, 2024 Diya Mora DNP Attending Provider Active S tart: October 18, 2024 End: October 18, 2024 Leg Assembler Relationship Specialty Start Date End Date Allison Mendez, PROOFER-CRM CONSULTANT PCP - General Nurse Practitioner 04/14/23 Leg Assembler Relationship Specialty Start Date End Date Leonard Aviles MD [address] [place] [address] PCP - General Family Medicine 07/30/23 Allison Mendez NP [address] [place] [address] PCP - [facility] 02/09/24 Allison Mendez, BEAU [address] [place] [address] Nurse Practitioner Family Medicine 07/30/23 Stephany Lew DO [address] [place] [address] Referring Physician Neurology 07/13/24 Leg Assembler Relationship Specialty Start Date End Date Leonard Aviles MD [address] [place] [address] PCP - General Family Medicine 07/30/23 Allison Mendez NP [address] [place] [address] PCP - [facility] 02/09/24 Allison Mendez NP [address] [place] [address] Nurse Practitioner Family Medicine 07/30/23 Stephany Lew DO [address] [place] [address] Referring Physician Neurology 07/13/24 Team Status: Inactive Member Role Status Dates Allison Mendez Primary Care Provider Active Sta rt: October 28, 2024 End: October 28, [address] Attending Provider Active S tart: October 28, 2024 End: October 28, 2024 Team Status: Inactive Member Role Status Dates Allison Mendez Primary Care Provider Active Sta rt: December 01, 2024 End: December 01, 2024 Diya Mora DNP Attending Provider Active S tart: December 01, 2024 End: December 01, 2024 Team Status: Inactive Member Role Status Dates Allison Mendez Primary Care Provider Active Sta rt: December 07, 2024 End: December 07, [address] Attending Provider Active S tart: December 07, 2024 End: December 07, 2024 Leg Assembler Relationship Specialty Start Date End Date Leonard Aviles MD [address] [place] [address] PCP - General Family Medicine 07/30/23 Allison Mendez NP [address] [place] [address] PCP - [facility] 02/09/24 Allison Mendez NP [address] [place] [address] Nurse Practitioner Family [facility] 07/30/23 Stephany Lew DO [address] [place], [place] [address] Referring Physician Neurology 07/13/24 Leg Assembler Relationship Specialty Start Date End Date Leonard Aviles MD [address] [place] [address] PCP - General Family [facility] 07/30/23 Allison Mendez NP [address] [place] [address] PCP - [facility] 02/09/24 Allison Mendez NP [address] [place] [address] Nurse Practitioner [facility] 07/30/23 Stephany Lew DO [address] [place], [place] [address] Referring Physician Neurology 07/13/24 Leg Assembler Relationship Specialty Start Date End Date Allison Mendez APRN-CRM CONSULTANT PCP - General Nurse Practitioner 04/14/23 Team Status: Active Member Role Status Dates Allison Mendez NP-C Primary Care Provider Active Team Status: Inactive Member Role Status Dates Allsion Mendez , FACILITY MANAGER-C Primary Care Provider Active Start: October 28, 2024 End: October 28, [address] Attending Provider Active S tart: October 28, 2024 End: October 28, 2024 Team Status: Inactive Member Role Status Dates Allison Mendez FACILITY MANAGER-C Primary Care Provider Active Start: December 01, 2024 End: December 01, 2024 Diya Mora DNP Attending Provider Active S tart: December 01, 2024 End: December 01, 2024 Team Status: Inactive Member Role Status Dates Allison Mendez FACILITY MANAGER-C Primary Care Provider Active Start: December 07, 2024 End: December 07, [address] Attending Provider Active S tart: December 07, 2024 End: December 07, 2024 Team Status: Inactive Member Role Status Dates Allison Mendez FACILITY MANAGER-C Primary Care Provider Active Start: January 26, 2025 End: January 26, 2025 Diya Mora DNP Attending Provider Active S tart: January 26, 2025 End: January 26, 2025 Team Status: Inactive Member Role Status Dates Allison Mendez FACILITY MANAGER-C Primary Care Provider Active Start: February 01, 2025 End: February 01, 2025 Allison Mendez , FACILITY MANAGER-C Attending Provider Active Start: February 01, 2025 End: February 01, 2025 Team Status: Inactive Member Role Status Dates Allison Mendez FACILITY MANAGER-C Primary Care Provider Active Start: February 08, 2025 End: February 08, [address] Attending Provider Active S tart: February 08, 2025 End: February 08, 2025 Leg Assembler Relationship Specialty Start Date End Date Allison Mendez APRN-LAURO PCP - General Nurse Practitioner 04/14/23 Goals (unrecognized section and content) Goals may be documented in a n alternate section FOR RECORDS PERTAINING TO PATIENTS WHO ARE [...] BE BASED ON THE PRIMARY CLINICAL RECORDS. [facility]. provides no warranty or guarantee of the accuracy or completeness of information in this document.
--- OUTSIDE RECORDS SUMMARY | 2025-02-23 07:43 | XMS_ITS | Encounter Summary ---
Author Organization [facility] Address [address] [place] [address] Phone Care Team Providers Care Hand Model Name Role Phone Allison Mednez APRN-SENIOR BUSINESS PROCESS ANALYST Primary Care Provider Encounter Details Date Type Department Care Team ([facility] st Contact Info) Description 04/05/2021 Orders Only [facility] [address] [place] [address] Conversion, Onbase Social History Tobacco Use Types [...] r Schedule OUTSIDE LAB SCAN Lab Ordered: 04/05/2021 documented as of this encounter Visit Diagnoses Not on filedocumented in this encounter Care Teams Hand Model Relationship Specialty Start Date End Date Allison Mendez APRN-SENIOR BUSINESS PROCESS ANALYST [address] [place] [address] PCP - General 10/09/20 documented as of this encounter
--- OUTSIDE RECORDS SUMMARY | 2025-02-23 07:43 | XMS_ITS | Encounter Summary ---
Author Organization [facility] Address [address] [facility] [place] [address] Care Team Providers Care Corrosion Control Specialist Name Role Phone Leonard Aviles MD Primary Care Provider [phone] Leonard Aviles MD Primary Care Provider [phone] Allison Mendez MEDICATION TECH Unavailable [phone] Leida Gifford MEDICATION TECH Unavailable [phone] Allison Mendez MEDICATION TECH Unavailable [phone] Betsey eLw DO Unavailable [phone] Encounter Details Date Type Department Care Team (Late st Contact Info) Description 04/30/2023 Abstract [facility] [address] [place] [address] Allison Mendez NP [address] [place] [address] Social History Tobacco Use Types Packs/Day Years [...] on filedocumented in this encounter Care Teams Corrosion Control Specialist Relationship Specialty Start Date End Date Leonard Aviles MD PCP - [facility] [place] 11/19/22 07/29/23 Leonard Aviles MD PCP - [facility] 07/30/23 Leida Gifford NP PCP - [facility] 08/10/23 Allison Mendez NP [address] [place] [place] [address] PCP - [facility] 02/09/24 Allison Mendez NP Nurse Practitioner Family [facility] 07/30/23 Betsey Lew DO [address] [place] [address] Referring Physician Neurology 07/13/24 documented as of this encounter
--- OUTSIDE RECORDS SUMMARY | 2025-02-23 07:43 | XMS_ITS | Encounter Summary ---
Author Organization [facility] Address [address] [facility] [place] [address] Care Team Providers Care Ear Nose Throat Surgeon Name Role Phone Leonard Aviles MD Primary Care Provider [phone] Allison Mendez DESIGN MANAGER Unavailable [phone] Allison Mendez DESIGN MANAGER Unavailable [phone] Betsey Lew DO Unavailable [phone] Reason for Visit * Reason Comments Med Refill Encounter Details Date Type Department Care Team (Late Contact Info) Description 11/15/2024 [facility] [address] [place] [address] Allison Mendez NP [address] [facility] [place] [address] Type 2 diabetes mellitus without complication, without long-term current use of insulin (HCC) Social History Tobacco Use Types Packs/Day Years [...] often do you attend chur ch or adventism services? Never 07/29/2023 Do you belong to [...] medical care, and heating? Somewhat hard 07/29/2023 [facility] - Occupational Stress [...] place to sleep or slept in a fpc (including now)? No 07/29/2023 Comments Unknown Sex and Gender Information Value Date Recorded Sex Assigned at Not on file Legal Sex Female 9:43 PM EDT Gender Identity Not on file Sexual Orientation Not on file documented as of this encounter Plan of Treatment Not on file documented as of this encounter Visit Diagnoses Diagnosis Type 2 diabetes mellitus without complication, without long-term current use of insulin (HCC) documented in this encounter Care Teams Ear Nose Throat Surgeon Relationship Specialty Start Date End Date Leonard Aviles MD PCP - General Family Medicine 07/30/23 Allison Mendez NP [address] [place] [address] PCP - [facility] 02/09/24 Allison Mendez NP Nurse Practitioner Family Medicine 07/30/23 Betsey Lew DO [address] [place] [address] Referring Physician Neurology 07/13/24 documented as of this encounter
--- OUTSIDE RECORDS SUMMARY | 2025-02-23 07:43 | XMS_ITS | Encounter Summary ---
Author Organization [facility] Address [address] [facility] [place] [address] Care Team Providers Care Manufacturing Controls Engineer Name Role Phone Leonard Aviles MD Primary Care Provider Allison Mendez HIGH VALUE ASSOCIATE Unavailable [phone] Allison Mendez HIGH VALUE ASSOCIATE Unavailable [phone] Betsey Lew DO Unavailable [phone] Encounter Details Date Type Department Care Team (Late st Contact Info) Description 12/21/2024 Abstract [facility] [address] [place] [address] Allison Mendez NP [address] [place] [address] Social History Tobacco Use Types Packs/Day Years [...] week 07/29/2023 How often do you attend [facility] or catholic services? Never 07/29/2023 Do you belong to any clubs o r organizations such as mandaeism groups, unions, fraternal or athletic groups, or [...] medical care, and heating? Somewhat hard 07/29/2023 [facility] - Occupational Stress Questionnaire Answer [...] place to sleep or slept in a [place] health care facility (including now)? No 07/29/2023 Comments Unknown Sex and Gender Information Value Date Recorded Sex Assigned at Not on file Legal Sex Female 9:43 PM EDT Gender Identity Not on file Sexual Orientation Not on file documented as of this encounter Plan of Treatment Not on file documented as of this encounter Visit Diagnoses Not on filedocumented in this encounter Care Teams Manufacturing Controls Engineer Relationship Specialty Start Date End Date Leonard Aviles MD PCP - General Family Medicine 07/30/23 Allison Mendez NP [address] [place] [address] PCP - [facility] 02/09/24 Allison Mendez NP Nurse Practitioner Family Medicine 07/30/23 Betsey Lew DO [address] [place] [address] Referring Physician Neurology 07/13/24 documented as of this encounter
== END 2025-02-23 07:40 | disposition home or self-care (01) ==
LOC: RAD 07:39
PROVIDERS: PCP Nurse Practitioner; Visit Provider Physician Assistant
DX: M25.511 Pain in right shoulder (principal)
CPT/HCPCS: 73030

== ENCOUNTER 2025-04-26 10:13 | Outpatient (OUT) | payer OTHER, SELFPAY ==
--- OUTSIDE RECORDS SUMMARY | 2025-04-26 04:50 | XMS_ITS | Continuity of Care Document ---
Author Organization [facility] Address [address] [place] [address] Phone Care Team Providers Care Encephalographer Name Role Phone Allison Mendez [employer]BBLER [employer]LE-C Primary Care Provider [phone] Diya Mora DNP Attending Provider Allison Mendez [employer]C Attending Provider Tasia Stewart RD Attending Provider UnavailAj Waters DO Attending Provider [phone] Care Teams Patient Care Team Team Status: Active Member Role/Relationship Status Dates Allison Mendez [employer]-C Primary Care Provider Active Visit Care Team Team Status: Inactive Member Role/Relationship Status Dates Allison Mendez , [employer]-C Primary Care Provider Active Start: January 26, 2025 End: January 26, 2025Diya Mora DNPAttending ProviderActiveStart: January 26, 2025 End: January 26, 2025 Visit Care Team Team Status: Inactive Member Role/Relationship Status Dates Allison Mendez , [employer]LE-C Primary Care Provider Active Start: February 01, 2025 End: February 01, 2025Allison Mendez NP-CAttending ProviderActiveStart: February 01, 2025 End: February 01, 2025 Visit Care Team Team Status: Inactive Member Role/Relationship Status Dates Allison Mendez , [employer]LE-C Primary Care Provider Active Start: February 08, 2025 End: February 08alejandro Stewart RDAttending ProviderActiveStart: February 08, 2025 End: February 08, 2025 Visit Care Team Team Status: Inactive Member Role/Relationship Status Dates Allison Mendez NP-C Primary Care Provider Active Start: February 23, 2025 End: February 23, 2025Aj Barrios DOAttending ProviderActiveStart: February 23, 2025 End: February 23, 2025 Visit Care Team Team Status: Inactive Member Role/Relationship Status Dates Allison Mendez [employer] Primary Care Provider Active Start: March 23, 2025 End: March 23, 2025Diya Mora DNPAttending ProviderActiveStart: March 23, 2025 End: March 23, 2025 Visit Care Team Team Status: Inactive Member Role/Relationship Status Dates Allison Mendez NP-C Primary Care Provider Active Start: April 18, 2025 End: April 18alejandro Stewart RDAttending ProviderActiveStart: April 18, 2025 End: April 18, 2025 Patient Care Team Team Status: Inactive Member Role/Relationship Status Dates Allison Mendez [employer] Primary Care Provider Active Start: April 26, 2025 End: April 26, 2025Allsion Mendez NP-CAttending ProviderActiveStart: April 26, 2025 End: April 26, 2025 Chief Complaint and Reason for Visit Chief Complaint Admit Date 6W February 01, 2025 8:42am February 08, 2025 9: 56am CONSULT ALLISON MENDEZ RT SHOULDER PAIN O ctober 2024 10:42am April 18, 2025 1 0:54am April 26, 2025 8:40am Reason for Visit Admit Date Abnormal weight gain January 26 10:00am Anxiety [...] 26, 2025 10:00am PCOS (polycystic ovarian syndrome) Vera torres 2024 10:00am Prediabetes January 26, 2025 10:00am Anxiety February 01, 2025 8:42am Biceps tendonitis February 01, 2025 8:42am Class 3 severe obesity with body mass index (BMI) of 50.0 to 59.9 in adult February 01, 2025 8:42am Essential hypertension February 01 025 8:42am Impingement of right shoulder February 232024 10:42am Right shoulder strain February 23, 2025 10:42am Abnormal weight gain March 23, 2025 9:15am Anxiety March 23, 2025 9:15am Arthritis of both knees March 23 025 9:15am Asthma March 23, 2025 9:15am BMI 50.0-59.9, adult March 23, 2025 9:15am Class 3 severe obesity with body mass index (BMI) of 50.0 to 59.9 in adult March 23, 2025 9:15am Dietary surveillance and counseling [facility] 2024 9:15am Exercise counseling March 23, 2025 9:15am Fibromyalgia March 23, 2025 9:15am High cholesterol March 23, 2025 9:15am History of hysterectomy March 23, 2 025 9:15am Hypertension March 23, 2025 9:15am Hypothyroidism March 23, 2025 9:15am Lumbar spondylosis March 23, 2025 9:15am IRENE (obstructive sleep apnea) March 112024 9:15am PCOS (polycystic ovarian syndrome) Mya 2024 9:15am Prediabetes March 23, 2025 9:15am Anxiety April 26, 2025 8:40am Class 3 severe obesity with body mass index (BMI) of 50.0 to 59.9 in adult April 26, 2025 8:40am Empty sella syndrome April 26, 2025 8:40am Essential hypertension April 26 8:40am Hypothyroidism April 26, 2025 8:40am Mixed hyperlipidemia April 26, 2025 8:40am IRENE (obstructive sleep apnea) April 102024 8:40am Type 2 diabetes mellitus, wi thout long-term current use of insulin April 26, 2025 8:40am Allergies, Adverse Reactions, Alerts Allergen Type Severity Reaction Last Updated Verified Status celecoxib Allergy Unknown chest pain, headache, hypertension March 23, 2025 9:18am Yes Active duloxetine Allergy Unknown Unknown Reaction March 23, 2025 9:18am Yes Active gabapentin Allergy Unknown Chest Pain, hypertension March 23, 2025 9:18am Yes Active hydrochlorothiazide Allergy Unknown elevated temp No vember 2024 9:18am Yes Active semaglutide Allergy Unknown chest pain, headache, hypertension March 23, 2025 9:18am Yes Active Social History Smoking Status Status Start Date End Date Date of Observa tion Never smoked tobacco (finding) October 18, 2024 9:27am Observation Status Observation Response Date of Response Legal Sex Female (finding) [facility] IdentityCisgender/Not transgender (finding)October 18isgender/Not transgender (finding)October 18isgender/Not transgender (finding)October 18isgender/Not transgender (finding)October 18isgender/Not transgender (finding)October 18isgender/Not transgender (finding)October 18isgender/Not transgender (finding)October 18isgender/Not transgender (finding)October 18isgender/Not transgender (finding)October 18isgender/Not transgender (finding)October 18isgender/Not transgender (finding)October 18isgender/Not transgender (finding)October 18, 2024Sexual Orientation UnknownUnknownUnknownUnknownUnknownUnknownUnknownUnknownUnknownUnknownUnknown UnknownPregnancy StatusNNovember 2024NSeptember 2024 Family History Relationship Condition Age at Onset Recorded Date/T bertha mother Diabetes mellitus Unknown HypertensionUnknownHigh blood cholesterolUnknownHypothyroidismUnknown OsteoporosisUnknownAnxiety with depressionUnknownfatherHypertensionUnknown History of impaired glucose toleranceUnknownOverweightUnknownbrotherHypertension UnknownDiabetes mellitusUnknownGlaucomaUnknowndaughterType 1 von Willebrand diseaseUnknownAsthmaUnknownScoliosisUnknownsonType 1 von Willebrand disease UnknownAttention deficit hyperactivity disorder (ADHD)UnknownAutistic disorder UnknownScoliosisUnknown Problems Active Problems Problem Diagnosis/Recorded Date Onset Date Stat us Chronic thoracic back pain January 29, 2025 1:38pm Unknown Active Vestibular dizziness January 29, 2025 1:42pm Unkno wn Active Elevated alkaline phosphatas e level January 29, 2025 1:38pm Unknown Active Class 3 severe obesity with body mass index (BMI) of 50.0 to 59.9 in adult October 18, 2024 8:42am Unknown Active Exercise counseling October 18, 2024 7:22am Unknown Active IRENE (obstructive sleep apnea) October 18, 2024 8:42am U nknown Active Family history of von Willebrand disease January 29, 2025 1:38pm Unknown Active Herpes zoster without complication January 29, 2025 1:39pm Unknown Active Arthritis of both knees October 18, 2024 8:21am Unknown Active Fatigue January 29, 2025 1:39pm Unknown Active Anosmia January 29, 2025 1:38pm Unknown Active Dietary surveillance and counseling October 18, 2024 7:22am Unknown Active High cholesterol October 18, 2024 8:18am Unknown A ctive Abnormal weight gain October 18, 2024 7:22am Unknown Active Anxiety October 18, 2024 8:17am Unknown Activ e Empty sella syndrome April 26, 2025 9:45am Unknow n Active Fibromyalgia October 18, 2024 8:16am Unknown Activ e Heart murmur October 18, 2024 8:16am Unknown Activ e Hypothyroidism October 18, 2024 8:18am Unknown Act nathaly Mixed hyperlipidemia January 29, 2025 1:41pm Unkno wn Active Systolic murmur January 29, 2025 1:41pm Unknown Active PCOS (polycystic ovarian syndrome) October 18, 2024 8:19am Unknown Active Tachycardia January 29, 2025 1:41pm Unknown Active Costochondritis October 18, 2024 8:21am Unknown Ac tive Vertigo October 18, 2024 8:17am Unknown Activ e Wheezing January 29, 2025 1:42pm Unknown Active Essential hypertension January 29, 2025 1:41pm Unk nown Active Impingement of right shoulder February 23, 2025 10:43 am Unknown Active Type 2 diabetes mellitus, without long-term current use of insulin January 29, 2025 1:41pm Unknown Active BMI 50.0-59.9, adult October 18, 2024 8:42am Unknown Active History of hysterectomy October 18, 2024 8:21am Februar y 2021 Active Right shoulder pain February 22, 2025 7:17am Unknown Active Right shoulder strain February 23, 2025 10:42am Unkno wn Active Hypertension October 18, 2024 8:21am Unknown Activ e Vitamin D deficiency January 23, 2025 11:45am Unkn own Active Uterine cancer December 01, 2024 10:09am Unknown Ac tive Lumbar spondylosis October 18, 2024 8:21am Unknown Active Asthma October 18, 2024 8:16am Unknown Activ e Biceps tendonitis February 01, 2025 8:22am Unknown Active Medications Medication Status Dose Units Route Directions Qty Days Refills S tart Date Stop Date End Date Reason(s) Instructions Adherence Cholecalciferol (Vitamin D3) 50 mcg (2,000 unit) tablet Discontinued 50 MCG PO Daily 90 1September 2024 11:00pmOctober 2024 11:50amVitamin D deficiency Vitamin D deficiency, unspecifiedCarvedilol 3.125 mg tabletDiscontinued3.125MGPO Twice eobss364Vwldzmf 2024 5:48pmDecember 2024 9:42amPrimary hypertension Essential (primary) hypertensionCholecalciferol (Vitamin D3) 50 mcg (2,000 unit) spkldpZljaav71SXJVKKlkok951Gfppisu 2024 11:50amVitamin D deficiency Vitamin D deficiency, unspecifiedComplies with drug therapyAlbuterol Sulfate 90 mcg/actuation HFA aerosol bmxeycoMjtnxq4BHMKHNMGLNEULajrsg 6 to 8 hours as neededJune 2024 11:00pmComplies with drug therapyLevothyroxine 150 mcg hcnagzWfmtxb079LKXKJEwwsiAqys 2024 11:00pmComplies with drug therapy Buspirone 10 mg siuydiOmykcs77SZQMPybke times daily as neededJune 2024 11:00pmComplies with drug therapyVerapamil 180 mg capsule,ext rel. pellets 24 hr Etyqky206OLANOjimEptf 2024 11:00pmComplies with drug therapyLosartan 50 mg tolptpJrgznhsromcd976ALJLNxnjxPgim 2024 11:00pmJuly 2024 10:18am Fluoxetine 10 mg xgwiizmApzsrvokccmm95PNLMMcaqjEwce 2024 11:00pmSeptember 2024 1:43pmCholecalciferol (Vitamin D3) 50 mcg (2,000 unit) capsule Dmvziqcbcqtq85CCCEYFkiybJiaa 2024 11:00pmSeptember 2024 11:46am Metformin 1,000 mg nmxxapOzbslpzrthmn2620CDDFUlsvaYvet 2024 11:00pmDecember 2024 9:23amAtorvastatin 10 mg zvkyvbMrbmzd07EERGReppt eveningJune 2024 11:00pmComplies with drug therapyBaclofen 10 mg angvzbZxtezn36OTKDDqxwq times daily as neededJune 2024 11:00pmComplies with drug therapyMeclizine 25 mg icwcvzMrmlfv90JTYPLbadx daily as neededJune 2024 11:00pmComplies with drug therapyAspirin 81 mg tablet,iytexcfzWmevvd61XEWMNtmnzYjzd 2024 11:00pm Complies with drug therapyMecobalamin (Vitamin B12) 1,000 mcg tablet,chewable Legrmevbsrxj2464DCOLFAwalzLsng 2024 11:00pmDecember 2024 9:23am Carvedilol 3.125 mg tabletDiscontinued3.125MGPOTwice dailySeptember 2024 11:00pmOctober 2024 5:49pmFluoxetine 20 mg ejdkvoxTrsavv38UFJEBriqb January 25, 2025 11:00pmComplies with drug therapyLosartan 100 mg tablet Ljdoku235XSMEKaizuYmqq 2024 11:00pmComplies with drug therapyTriamcinolone Acetonide (Nasacort Allergy) 55 mcg aerosol,fhjqoDnwmcsebnjwz6MWJNFFNXOGJIBVU DailySe2024 11:00pmDe2024 9:24amadminister into each nostrilRizatriptan 10 mg tablet,limjtypicuzywcZehnns32GMZYGicmi 2 hoursApril 26, 2025 12:00amComplies with drug therapyFremanezumab-Vfrm (Ajovy Autoinjector) 225 mg/1.5 mL auto-dfkgjmfqWiocmp360GZHZPJHDcacdp monthDe2024 12:00amComplies with drug therapyCarvedilol 6.25 mg tabletActive6.25 MGPOTwice hwpey131Drmygflw 17th, 2025 12:00ammust administer with a meal/food Complies with drug therapyNaproxen 500 mg thiykvBaubkyntjeoe100ZUYWEwoop daily60 302Oct2024 11:00pmDe2024 9:24ampain Relevant Diagnostic Tests and/or Laboratory Data Laboratory Results Test Collection Date/Time Result Date/Time Result Interpretation Reference Range Result Comment Performing Site Bedside Hemoglobin A1c April 26, 2025 9:22am Dece mb2024 9:22am 5.7 % Vital Signs Vital Reading Result Reference Range Collection Date/Time Height 62.6 [in_i] January 26, 2025 9:69pzHfyrtn652.80 kgSept2024 9:17amHeart Rate 76 /zjk11-317Iklartpcb 18th, 2025 9:17amRespiratory rate18 /oyj26-55Fiubzpqrd 18th, 2025 9:17amBP Iolhurku976 mm[Hg]100-140Sept2024 9:17amBP Rnpdpmxsh14 mm[Hg]60-100Sept2024 9:17amBMI (Body Mass Index)54.5 kg/c3Janklsowt 2024 9:63fkDhqtic06.6 [in_i]February 01, 2025 8:03am Heddhx638.89 kgSeptember 2024 8:03amBody Irickvahzxc03.7 [degF]97.6-99.0 February 01, 2025 8:03amHeart Rate82 /upd73-283Erxgyjqcc 24th, 2025 8:03am Respiratory rate18 /vaf29-96Xdnerteaw 24th, 2025 8:03amOxygen saturation by Pulse %95-100Sept2024 8:03amBP Iszajows615 mm[Hg]100-140 February 01, 2025 8:03amBP Eaugmqaqt80 mm[Hg]60-100Sept2024 8:03amBMI (Body Mass Index)54.5 kg/o6Zhcskelwo 2024 8:32lhWmkifl90.63 [in_i]February 08, 2025 9:45onWuofdz761.43 kgOctober 2024 9:38amBMI (Body Mass Index)54.3 kg/o9Bdidpbg 2024 9:03ffKdppee88.6 [in_i]March 23, 2025 9:31xdIfrdcc498.70 kgNovember 2024 9:30amHeart Rate76 /gxq92-153 March 23, 2025 9:30amRespiratory rate18 /gse02-70JnhxbmsmMarch 23, 2025 9:30am BP Unaneroh429 mm[Hg]100-140March 23, 2025 9:30amBP Wnrnpixms91 mm[Hg] 60-100Nov2024 9:30amBMI (Body Mass Index)54.4 kg/i7Ipfnaiqo 2024 9:88ceImcqvs70.63 [in_i]April 18, 2025 11:47pjFcnklp307.98 kgDecember 2024 11:32amBMI (Body Mass Index)54.5 kg/y2Ehotzxkv 2024 11:32amHeight 62.63 [in_i]April 26, 2025 8:06eeRlcxgt646.38 kgDecember 2024 8:55am Body Kviixmfblek72.5 [degF]97.6-99.02024 8:55amHeart Rate86 /min 60-100April 26, 2025 8:55amRespiratory rate20 /hkm53-78Mnewfeas 17th, 2025 8:55amOxygen saturation by Pulse hubzatov84 %95-100April 26, 2025 8:55amBP Hcagyasp248 mm[Hg]100-140April 26, 2025 9:17amBP Tzsvhkxku316 mm[Hg]60-100 April 26, 2025 9:17amBMI (Body Mass Index)55.5 kg/u1Gakrqran2024 8:55am Advance Directives Advance Directive Response Recorded Date/ Time Advance Directives No August 30 10:10am Insurance Providers Guarantor Gemma Velasco Address [address] [facility] [address]Phdrqop Info.Home Phone: Coverage Status Update:2024 Payer Group Member ID Coverage Type Subscriber Relationship to Subscriber Effective Date Expiration Date [employer] [id number] Noftz Id: [id number] [address] [place] [address] Home Phone: Email: [email or web address] Encounters Encounter Location(s) Arrival/Admit Date Discharge/Departure Date Discharge/Departure Disposition Provider(s) Departed Physician/ Provider Office Visit -[facility] January 26, 2025 10:00am January 26, 2025 10:42am Discharged to home care or self care (routine discharge) Dane Wang DNP Departed Physician/ Provider Office Visit -[facility] February 01, 2025 8:42am February 01, 2025 9:22am Discharged to home care or self care (routine discharge) RAMÍREZ Cohen Departed Physician/ Provider Office Visit -[facility] February 08, 2025 9:56am February 08, 2025 11:59pm Discharged to home care or self care (routine discharge) Tasia Stewart RD Departed Physician/ Provider Office Visit -[facility] February 23, 2025 10:42am February 23, 2025 11:48am Discharged to home care or self care (routine discharge) Aj Barrios DO Departed Physician/ Provider Office Visit -[facility] March 23, 2025 9:15am March 23, 2025 9:51am Discharged to home care or self care (routine discharge) Dane Wang DNP Departed Physician/ Provider Office Visit -[facility] April 18, 2025 10:54am April 18, 2025 11:59pm Discharged to home care or self care (routine discharge) Tasia Stewart RD Departed Physician/ Provider Office Visit -[facility] [place] April 26, 2025 8:40am April 26, 2025 9:47am Discharged to home care or self care (routine discharge) Allison Mendez , COBBLER SOLE-C Recent Diagnosis Onset Date Admit Date Abnormal weight gain Unknown January 092024 10:00am Anxiety Unknown January 26, 2025 10:00am Arthritis of both knees Unknown 2024 10:00am Asthma Unknown January 26, 2025 10:00am BMI 50.0-59.9, adult Unknown January 092024 10:00am Class 3 severe obesity with body mass index (BMI) of 50.0 to 59.9 in adult Unknown January 26, 2025 10:00am Dietary surveillance and counseling Unknown January 26, 2025 10:00am Exercise counseling Unknown January 262024 10:00am Fibromyalgia Unknown January 26, 2025 10:00am High cholesterol Unknown January 26, 2025 10:00am History of hysterectomy June 27, 2021Jan emb2024 10:00am Hypertension Unknown January 26, 2025 10:00am Hypothyroidism Unknown January 26, 2025 10:00am Lumbar spondylosis Unknown January 10:00am IRENE (obstructive sleep apnea) Unknown Se pt2024 10:00am PCOS (polycystic ovarian syndrome) Unknown January 26, 2025 10:00am Prediabetes Unknown January 26, 2025 10:00am Anxiety Unknown Jane 24th, 2025 8:42am Biceps tendonitis Unknown January 8:42am Class 3 severe obesity with body mass index (BMI) of 50.0 to 59.9 in adult Unknown February 01, 2025 8:42am Essential hypertension Unknown February 01, 2025 8:42am Impingement of right shoulder Unknown Oc tob2024 10:42am Right shoulder strain Unknown February 232024 10:42am Abnormal weight gain Unknown March 232024 9:15am Anxiety Unknown March 23, 025 9:15am Arthritis of both knees Unknown March 23, 2025 9:15am Asthma Unknown March 23, 025 9:15am BMI 50.0-59.9, adult Unknown March 232024 9:15am Class 3 severe obesity with body mass index (BMI) of 50.0 to 59.9 in adult Unknown March 23, 2025 9:15am Dietary surveillance and counseling Unknown March 23, 2025 9:15am Exercise counseling Unknown March 9:15am Fibromyalgia Unknown March 23, 025 9:15am High cholesterol Unknown March 23, 2025 9:15am History of hysterectomy June 27, 2021 [facility] 2024 9:15am Hypertension Unknown March 23, 025 9:15am Hypothyroidism Unknown March 23 025 9:15am Lumbar spondylosis Unknown March 9:15am IRENE (obstructive sleep apnea) Unknown 2024 9:15am PCOS (polycystic ovarian syndrome) Unknown March 23, 2025 9:15am Prediabetes Unknown March 23, 025 9:15am Anxiety Unknown April 26, 025 8:40am Class 3 severe obesity with body mass index (BMI) of 50.0 to 59.9 in adult Unknown April 26, 2025 8:40am Empty sella syndrome Unknown April 262024 8:40am Essential hypertension Unknown April 26, 2025 8:40am Hypothyroidism Unknown April 26, 025 8:40am Mixed hyperlipidemia Unknown April 262024 8:40am IRENE (obstructive sleep apnea) Unknown 2024 8:40am Type 2 diabetes mellitus, wi thout long-term current use of insulin Unknown April 26, 2025 8 :40am Assessments Diagnosis Onset Date Resolution Status Admit Date Abnormal weight gain acuteSeptember 2024 10:00amAnxietyacuteSeptember 2024 10:00am Arthritis of both kneesacuteSeptember 2024 10:00amAsthmaacuteSeptember 2024 10:00amBMI 50.0-59.9, adultacuteSeptember 2024 10:00amClass 3 severe obesity with body mass index (BMI) of 50.0 to 59.9 in adultacuteSeptember 2024 10:00amDietary surveillance and counselingacuteSeptember 2024 10:00amExercise counselingacuteSeptember 2024 10:00amFibromyalgiaacute January 26, 2025 10:00amHigh cholesterolacuteSeptember 2024 10:00am History of hysterectomyFebruary cuteSeptember 2024 10:00am HypertensionacuteSeptember 2024 10:00amHypothyroidismacuteSeptember 2024 10:00amLumbar spondylosisacuteSeptember 2024 10:00amOSA (obstructive sleep apnea)acuteSeptember 2024 10:00amPCOS (polycystic ovarian syndrome) acuteSeptember 2024 10:00amPrediabetesdeletedSeptember 2024 10:00am AnxietyacuteSeptember 2024 8:42amBiceps tendonitisacuteSeptember 2024 8:42amClass 3 severe obesity with body mass index (BMI) of 50.0 to 59.9 in adultacuteSeptember 2024 8:42amEssential hypertensionacuteSeptember 2024 8:42amImpingement of right shoulderacuteOctober 2024 10:42amRight shoulder strainacuteOctober 2024 10:42amAbnormal weight gainacuteNovember 2024 9:15amAnxietyacuteNovember 2024 9:15amArthritis of both knees acuteNovember 2024 9:15amAsthmaacuteNovember 2024 9:15amBMI 50.0- 59.9, [facility] 9:15amClass 3 severe obesity with body mass index (BMI) of 50.0 to 59.9 [facility] 20[facility] 9:15amDietary surveillance and counselingEs[facility] 2024 9:15amExercise counseling [facility] 2024 9:15amFibromyalgiaacute[facility] 9:15amHigh cholesterolacuteCommon[facility] 2024 9:15amHistory of hysterectomyFeuary cuteN[facility] hospital 2024 9:15amHypertensionEs[facility] 2024 9:15am [facility]roidism[facility] 2024 9:15amLumbar spondylosisEs[facility] Hospital 2024 9:15amOSA (obstructive sleep apnea)[facility] 2024 9:15am PCOS (polycystic ovarian syndrome)[facility] 2024 9:15amPrediabetes [facility] 2024 9:15amAnxietyacute[facility] 2024 8:40amClass 3 severe obesity with body mass index (BMI) of 50.0 to 59.[facility] 8:40amEmpty sella syndromePreston [facility] Hospital 2024 8:40amEssential hypertensionPreston [facility] Hospital 2024 8:40amHypothyroidismPreston Memorial Hospital 2024 8:40amMixed hyperlipidemiaacutePal[facility] 2024 8:40amOSA (obstructive sleep apnea)[facility] 2024 8:40amType 2 diabetes mellitus, without long-term current use of insulinacutePaladin Healthcare 2024 8:40am Plan of Treatment Author Diya Mora [facility] 2024 9:49amWt. Hx: Highest weight: 350 pounds Start: 10/10/24, 298.2 pounds Follow up: 12/01/24, 298.9 pounds Follow up: 01/26/25, 303.8 pounds (up 4.9 pounds since last OV on 12/01/24 and up 5.6 pounds since starting with our office on 10/10/24) AOM: none Labs: 06/2024 with hgba1c 5.8% Exercise counseling- Reinforced as a primary intervention to promote lean tissue mass/muscle preservation. Dietary surveillance and counseling: [Weld [employer]itter] Lead with lean protein sources and attempt 2-3 sections of plate method with each meal and snack. Continue to work on small sustainable changes to promote overall health F/u: [8 weeks] Medication considerations: none Treatment plan/changes: Gemma is a 39 year old female who presents today for weight management follow up. Since last visit patient is doing good with lifestyle changes. Up 4.9 pounds since last OV on 12/01/24 and up 5.6 pounds since starting with our office on 10/10/24. Initial goals: 5% (283), 10% (268). Down an inch in her waist however. Not taking any weight loss medications. Zepbound was not covered by her insurance company. Reports positive effect of losing an inch in her waist. Struggles with weight loss. Exercise consists of walking 3 times daily for 30 minutes at a time and stretching. Saw our dieticians, gave her good ideas. Not eating the way that she should be, not eating as much as she should. Her fibromyalgia has been flared up. Getting another brain MRI next month for her central and peripheral vertigo. Focusing on snacking between meals and increasing water. Overall, patient is feeling much better. She is focusing on eating more frequent meals throughout the day and snacking and increasing her water intake. She has had some struggle with her fibromyalgia flaring up and she is trying to work with this. She tries to remain active. She stays off of weight loss medication at this time. She would like to stay off of this. She will continue to follow with the registered dietitians as she is enjoying these appointments. Recommended at least 30 minutes of moderate physical activity most days of the week or 150 minutes weekly in addition to at least 2 days of strength training exercise. She will follow-up in the office with me in 8 weeks or sooner if needed. It was discussed with patient that our role is to help them to understand the underlying complex biology of obesity as a disease and offer tools and support for overall health goals and set realistic expectations for weight loss. Understands that the treatment plan is personalized to the best of knowledge and ability with priority to decreasing wt related comorbidities as well as increasing functional capacity and quality of life. Will work with pt to help overcome barriers with the understanding that treatment plan may change lead time and tools, such as medications, do have limitations. Medications, as applicable, were discussed including up-to-date studies and effectiveness, risks and benefits, common side effects, MOA, etc. Regardless of medications, lifestyle change takes precedence. I highly recommended decreasing or eliminating caloric beverages especially sweetened beverages and alcohol. Pt should prioritize preplanning, shopping at the edge of the store, decreasing unhealthy food cues. I recommended packing snacks and meals when out of the home. No macronutrient is completely restricted. We discussed the addictive nature and unhealthy biological changes that occur with ultra processed food and how it may influence chronic disease. I highly recommended preference for whole foods/real foods and decrease added sugar, refined starches, and added fats. Lean unprocessed protein with each meal and each snack to help control appetite, decrease cravings and lessen muscle loss with weight loss advised. The patient will ideally try to get at least 5 or more servings of low carbohydrate veggies daily. Benefits of regular exercise including cardio and resistance training discussed and recommended, slowly increasing activity, as appropriate for the patient. Consider our global logistics manager for guidance. We offer individual and group visits from several different practitioners which was also recommended to help with long-term behavioral change and support. Recommend good sleep hygiene and the importance of adequate sleep. Circadian rhythm and the importance of mealtime. Stress reduction and controlling factors within reasonable control. The majority of today's visit was spent re-evaluating patient, counseling/educating patient on the options for the continual treatment of obesity and weight related health issues. See above treatment plan. See above treatment plan. Appointment with registered dietitian made at checkout today. Recommended at least 30 minutes of moderate physical activity most days of the week or 150 minutes weekly in addition to at least 2 days of strength training exercise. Last lab work was done 06/2024 with a hemoglobin A1c of 5.8%. She does take metformin 1000 mg daily from her PCP. She will continue this. It is hoped that there participation in our weight management program, this level will improve. See above treatment plan. She does have IRENE with CPAP but does not use it due to flaring up back pain (sleep study with Dr. Lew in [place]). I did recommend that she start using her CPAP. It is hoped that through weight loss through our program, this will improve. Last lab work was done 06/2024. It is hoped that through participation in our weight management program, this will improve. Last lab work was done 06/2024. She does take atorvastatin through her PCP. It is hoped that through participation in our weight management program, this will improve. Lab work done 06/2024. She will continue to follow with her PCP for treatment with this. She does have bilateral knee arthritis and low back pain. Recommended at least 30 minutes of moderate physical activity most days of the week or 150 minutes weekly in addition to at least 2 days of strength training exercise. She does have bilateral knee arthritis and low back pain. Recommended at least 30 minutes of moderate physical activity most days of the week or 150 minutes weekly in addition to at least 2 days of strength training exercise. No suicidal or homicidal ideations. Stable at this time. Stable at this time. She will continue to follow with PCP for management in this. Stable at this time. She has a history of a hysterectomy. Author Allison Mendez [facility] 2024 8:28amlast appt we increased fluoxetine to 20mg daily and continued with buspar doing well will continue with current treatment Please check blood pressure daily and record DASH diet Limit caffeine Take medication as directed Contact office if chest pain, pressures, dizziness, shortness of breath, swelling in the legs Recommend slow position changes if you develop dizziness with position changes current meds: carvediolol and losartan Discussed with patient their BMI (actual vs recommended). We have discussed lifestyle modifications: attempts to perform phsyical activity as chronic conditions allow, monitor dietary intake: increasing protein/fruits/veggies and lowering carb intake (unless contraindicated). Limit sodas, juices, sugary drinks, as well as alcohol consumption. will refer to ortho Author Diya Mora [facility] 2024 10:21amWt. Hx: Highest weight: 350 pounds Start: 10/10/24, 298.1 pounds Follow up: 12/01/24, 298.9 pounds Follow up: 01/26/25, 303.8 pounds Follow up: 03/23/25, 303.5 pounds (down 0.3 pounds since last OV on 01/26/25 and up 5.4 pounds since starting with our office on 10/10/24) AOM: none Labs: 06/2024 with hgba1c 5.8% Exercise counseling- Reinforced as a primary intervention to promote lean tissue mass/muscle preservation. Dietary surveillance and counseling: [[employer]] Lead with lean protein sources and attempt 2-3 sections of plate method with each meal and snack. Continue to work on small sustainable changes to promote overall health F/u: [8 weeks] Medication considerations: none Treatment plan/changes: Gemma is a 39 year old female who presents today for weight management follow up. Since last visit patient is doing good with lifestyle changes. Down 0.3 pounds since last OV on 01/26/25 and up 5.4 pounds since starting with our office on 10/10/24. Initial goals: 5% (283), 10% (268). Not taking any weight loss medications. Zepbound was not covered by her insurance company. Reports positive effect of weight loss. Struggles with weight loss. Exercise consists of walking 3 times daily for 30 minutes at a time and stretching. Drinking more water. Making more healthy meals for herself and her kids. Still seeing the dieticians and this is working well for her. Giving her good ideas. Recipe ideas a lot. Had a recent MRI brain for central and peripheral vertigo and waiting to see the neurologist. Done in [facility]. 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 Sees them in April on the . Overall, she is doing well. She is down in weight and not on any weight loss medications. Will keep her off of weight loss medications. Follow up with neurology for her MRI results. Continue to follow with dieticians. Recommended at least 30 minutes of moderate physical activity most days of the week or 150 minutes weekly in addition to at least 2 days of strength training exercise. Follow up with me in the office in 8 weeks or sooner if needed. It was discussed with patient that our role is to help them to understand the underlying complex biology of obesity as a disease and offer tools and support for overall health goals and set realistic expectations for weight loss. Understands that the treatment plan is personalized to the best of knowledge and ability with priority to decreasing wt related comorbidities as well as increasing functional capacity and quality of life. Will work with pt to help overcome barriers with the understanding that treatment plan may change lead time and tools, such as medications, do have limitations. Medications, as applicable, were discussed including up-to-date studies and effectiveness, risks and benefits, common side effects, MOA, etc. Regardless of medications, lifestyle change takes precedence. I highly recommended decreasing or eliminating caloric beverages especially sweetened beverages and alcohol. Pt should prioritize preplanning, shopping at the edge of the store, decreasing unhealthy food cues. I recommended packing snacks and meals when out of the home. No macronutrient is completely restricted. We discussed the addictive nature and unhealthy biological changes that occur with ultra processed food and how it may influence chronic disease. I highly recommended preference for whole foods/real foods and decrease added sugar, refined starches, and added fats. Lean unprocessed protein with each meal and each snack to help control appetite, decrease cravings and lessen muscle loss with weight loss advised. The patient will ideally try to get at least 5 or more servings of low carbohydrate veggies daily. Benefits of regular exercise including cardio and resistance training discussed and recommended, slowly increasing activity, as appropriate for the patient. Consider our global logistics manager for guidance. We offer individual and group visits from several different practitioners which was also recommended to help with long-term behavioral change and support. Recommend good sleep hygiene and the importance of adequate sleep. Circadian rhythm and the importance of mealtime. Stress reduction and controlling factors within reasonable control. The majority of today's visit was spent re-evaluating patient, counseling/educating patient on the options for the continual treatment of obesity and weight related health issues. See above treatment plan. See above treatment plan. Appointment with registered dietitian made at checkout today. Recommended at least 30 minutes of moderate physical activity most days of the week or 150 minutes weekly in addition to at least 2 days of strength training exercise. Last lab work was done 06/2024 with a hemoglobin A1c of 5.8%. She does take metformin 1000 mg daily from her PCP. She will continue this. It is hoped that there participation in our weight management program, this level will improve. See above treatment plan. She does have IRENE with CPAP but does not use it due to flaring up back pain (sleep study with Dr. Lew in [place]). I did recommend that she start using her CPAP. It is hoped that through weight loss through our program, this will improve. Last lab work was done 06/2024. It is hoped that through participation in our weight management program, this will improve. Last lab work was done 06/2024. She does take atorvastatin through her PCP. It is hoped that through participation in our weight management program, this will improve. Lab work done 06/2024. She will continue to follow with her PCP for treatment with this. She does have bilateral knee arthritis and low back pain. Recommended at least 30 minutes of moderate physical activity most days of the week or 150 minutes weekly in addition to at least 2 days of strength training exercise. She does have bilateral knee arthritis and low back pain. Recommended at least 30 minutes of moderate physical activity most days of the week or 150 minutes weekly in addition to at least 2 days of strength training exercise. No suicidal or homicidal ideations. Stable at this time. Stable at this time. She will continue to follow with PCP for management in this. Stable at this time. She has a history of a hysterectomy. Author Allison Mendez [facility] [place] 2024 9:46amcurrent meds: buspirone, and fluoxetine JAIMEE 7=14 PHQ9=7 04/26/2025 Please check blood pressure daily and record DASH diet Limit caffeine Take medication as directed Contact office if chest pain, pressures, dizziness, shortness of breath, swelling in the legs Recommend slow position changes if you develop dizziness with position changes current meds: carvediolol, verapamil, and losartan increase carvediolol fu in 4 weeks for blood pressure Discussed with patient their BMI (actual vs recommended). We have discussed lifestyle modifications: attempts to perform phsyical activity as chronic conditions allow, monitor dietary intake: increasing protein/fruits/veggies and lowering carb intake (unless contraindicated). Limit sodas, juices, sugary drinks, as well as alcohol consumption. on levothyroxine check labs yearly and prn dose changes or changes in sxs on statin therapy check labs yearly and prn dose changes recommend diet low in fat and processed foods Check blood sugars daily, notify the office if <70 or > 200. Take medications (pills or insulin) as directed. Monitor for s/s of low blood sugar (sweaty, dizziness, nausea, vomiting, or shakiness). Watch for increase thirst, urination, and appetite as these can be signs of high blood sugar. Inspect your feet frequently monitor for open wounds, wear proper fitting shoes as well. Pt should attempt to remain as physical active as chronic conditions allow, as well as trying to follow a diet lower in carbohydrates, and simple sugars. meds: asa, statin,arb a1c: 5.7% 04/26/25, 5.7% 11/09/24 will stay off metformin, no other med at this time, recheck in 3 months You have a diagnosis of IRENE it is recommended that you wear your PAP device anytime while in bed sleeping. Not using the PAP device can increase your risk of elevated or uncontrolled blood pressure, atrial fibrillation, heart attack, stroke, and sudden . Compliance with PAP:no follow w neurology check prolactin level Author Edna [facility] HospitalAuthoredOctober 2024 10:47amDiscussed with the patient on her symptoms, exam, and imaging. Likely etiologies of the patient's symptoms were discussed. Patient has symptoms consistent with right shoulder impingement and a right shoulder strain. We discussed various treatment options. At this point we will pursue conservative management. We discussed an injection at this time and patient wishes to proceed. Under sterile condition, 1 cc of Kenalog/4 cc bupivacaine were injected into the right subacromial space. Patient tolerated the procedure well. We will also begin formal physical therapy. Therapy prescription given to the patient. Advised she take oral anti inflammatories. Naproxen was sent to patients pharmacy to start taking twice a day for 2-3 weeks, then as needed after that. She will follow up in 8 weeks for reevaluation. Future Tests Future scheduled test information is unavailable Pending Tests Test Name Ordered Date Scheduled Date Comprehensive Metabolic Panel April 26 5:44am MM screening mammo BI w/CADDecember 2024 5:43amXR shoulder RT min 2V* February 22, 2025 7:17am Future Visits Future appointment information is unavailable Future Procedures Procedure Name Ordered Date Scheduled Date Dipstick and Microscopic April 26, 2025 5:4 4am Complete Blood Count Auto DiffDecember 2024 5:44amLipid PanelDecember 2024 5:44amMagnesiumDecember 2024 5:44amProlactinDecember 2024 9:45amFree T4 (Free Thyroxine)April 26, 2025 5:44amThyroid Stimulating HormoneDecember 2024 5:44amVitamin D 25 Hydroxy TotalDecember 2024 5:44amAMB POC Ur Microalb/Creat RatDecember 2024 5:44am Future Medications Future medication information is unavailable Patient Instructions Patient instructions are unavailable
[2025-04-26 11:02] LABS: Glucose Urine UA NEGATIVE (NEGATIVE)
[2025-04-26 11:02] LABS: Hematocrit 41.5 % (36.0-48.0); Hemoglobin 13.6 g/dL (12.0-16.0); Immature Granulocytes Abs Auto 0.04 10^3/uL (0.00-0.03); Immature Granulocytes Pct Auto 0.4 % (0.0-0.5); Lymphocytes Absolute Auto 2.4 10^3/uL (1.2-3.8); Mean Corpuscular HGB Conc 32.8 g/dL (29.9-35.2); Mean Corpuscular Hemoglobin 30.0 pg (26.7-34.0); Mean Corpuscular Volume 91.4 fL (81.0-99.0); Platelet Count 242 10^3/uL (150-450); Red Blood Count 4.54 10^6/uL (4.20-5.40); White Blood Count 9.2 10^3/uL (4.0-11.0)
[2025-04-26 11:42] LABS: Cast Seen? NONE SEEN #/LPF (NONE SEEN); Crystals Seen? None Seen #/HPF (None Seen)
[2025-04-26 11:56] LABS: Alanine Aminotransferase 19 U/L (14-59); Albumin Globulin Ratio 0.8; Albumin Level 3.5 g/dL (3.4-5.0); Alkaline Phosphatase 133 U/L (46-116); Anion Gap 10.9; Aspartate Amino Transferase 10 U/L (15-37); Blood Urea Nitrogen 9.0 mg/dL (7.0-18.0); Calcium 9.2 mg/dL (8.5-10.1); Carbon Dioxide 28.0 mmol/L (21.0-32.0); Chloride 104 mmol/L (98-107); Cholesterol 230 mg/dL (<=200); Estimated GFR (African America >60 (>=60 mL/min/1.73m^2); Estimated GFR (Non-African Ame >60 (>=60 mL/min/1.73m^2); Globulin 4.2 g/dL; Glucose 101 mg/dL (74-106); HDL Cholesterol 58 mg/dL (40-60); Magnesium 2.1 mg/dL (1.8-2.4); Potassium 3.9 mmol/L (3.5-5.1); Sodium 139 mmol/L (136-145); Thyroid Stimulating Hormone 5.326 uIU/mL (0.358-3.740); Total Protein 7.7 g/dL (6.4-8.2); Triglycerides 78 mg/dL (<=150); VLDL CHOLESTEROL 15.6 mg/dL
== END 2025-04-26 10:14 | disposition home or self-care (01) ==
LOC: LAB 10:14
PROVIDERS: PCP Nurse Practitioner; Visit Provider Nurse Practitioner
DX: E78.2 Mixed hyperlipidemia (principal); E11.9 Type 2 diabetes mellitus without complications; I10 Essential (primary) hypertension; E55.9 Vitamin D deficiency, unspecified; E66.813 Obesity, class 3; Z68.43 Body mass index [BMI] 50.0-59.9, adult; E23.6 Other disorders of pituitary gland
CPT/HCPCS: 36415; 80053; 80061; 81001; 82043; 82306; 82570; 83735; 84146; 84439; 84443; 85025